=== PATIENT | male | born 1965 | race Hispanic/Latino ===

== ENCOUNTER 2020-08-31 00:35 | Inpatient (IN) | payer BC, OTHER ==
[2020-08-31] VITALS (26 sets, daily range): BP systolic 115–159; BP diastolic 58–109
[~2020-08-31] VITALS: Ht 170.2 cm; Wt 92.6 kg
[2020-08-31 01:12] LABS: LYMPHOCYTES # 0.72 10^3/uL1 (1.0-4.8); LYMPHOCYTES % 2.8 % (24.0-44.0); MEAN CORP HGB 32.4 pg (26-34); MONOCYTES # 1.7 10^3/uL (0.3-0.8); MONOCYTES % 6.8 % (5.0-12.0); NEUTROPHIL # 22.4 10^3/uL (1.8-7.7); NEUTROPHILS % 88.4 % (41.0-85.0); PLATELET COUNT 232 10^3/uL (150-400); RED CELL DISTRIBUTION WIDTH 12.4 % (11.5-14.5)
--- NOTE | 2020-08-31 01:15 | ER.PDOC ---
General Chief Complaint: Requesting Medical Care Stated Complaint: COVID-19 TRAVEL OUT OF US: No Time seen by MD: 00:50 Source: patient, old records Exam Limitations: no limitations History of Present Illness Initial Comments Pt is a transfer form [facility] for Covid Pneumonia for care not available in [facility]. Pt presented to [facility] for SOB, fevers & chills for about a week On presentation, sat was 82 %. Nebulizer treatment and Mg then on 100% NRB, sa ts katie to 98. No bed available for admission down there. Severity: moderate Modifying Factors: improves with other (See records form [facility]) Associated Symptoms: fever/chills, shortness of breath Past Medical History Medical History: high cholesterol, hypertension Surgical History: other (ORIF left ankle, pterigium left eye) Family History Significant Family History: no pertinent family hx Social History Smoking: non-smoker Alcohol Use: none Drug Use: none Review of Systems Respiratory: see HPI, cough, shortness of breath, wheezing All Other Systems: Reviewed and Negative Physical Exam General Appearance: WD/WN, Moderate Distress EENT: eyes nml inspection, nml ENT inspection, pharynx nml Neck: Non-Tender, Full Range of Motion Respiratory: chest non-tender, decreased breath sounds, grunting, rales CVS: reg rate & rhythm, no murmur, no gallop, pulses nml, nml capillary refill Gastrointestinal: Normal Bowel Sounds, No Organomegaly Extremities: Normal Range of Motion, Non-Tender, Normal Inspection Neurologic/Psychiatric: translator and interpreter II-XII NML as Tested, No Motor/Sensory Deficits, Alert, Normal Mood/Affect, Oriented x 3 Skin: Normal Color, Warm/Dry Lymphatic: No Adenopathy Results/Orders Results/Orders Orders - CHAVEZ CABRERA MD Cbc With Auto Diff (08/31/20 00:57) Comprehensive Metabolic Panel (08/31/20 00:57) C-Reactive Protein (08/31/20 00:57) D-Dimer (08/31/20 00:57) Vital Signs Date Time Temp Pulse Resp B/P (MAP) Pulse Ox O2 Delivery O2 Flow Rate FiO2 08/31/20 01:31 99.1 89 22 133/78 (96) 85 Non-Rebreather 15.00 08/31/20 00:59 99.1 96 22 08/31/20 00:59 99.1 96 22 154/64 (94) 85 Non-Rebreather 15.00 08/31/20 00:59 99.3 96 22 85 Laboratory Tests Test 08/31/20 01:00 White Blood Count 25.4 10^3/uL (4.5-11.0) *H Red Blood Count 5.49 10^6/uL (4.50-5.90) Hemoglobin 17.8 g/dL (13.9-16.3) H Hematocrit 48.6 % (37.0-53.0) Mean Corpuscular Volume 88.5 fL (78-100) Mean Corpuscular Hemoglobin 32.4 pg (26-34) Mean Corpuscular Hemoglobin Concent 36.6 g/dL (33-36.5) H Red Cell Distribution Width 12.4 % (11.5-14.5) Platelet Count 232 10^3/uL (150-400) Mean Platelet Volume 9.2 fL (7.8-11.0) Neutrophils (%) (Auto) 88.4 % (41.0-85.0) H Lymphocytes (%) (Auto) 2.8 % (24.0-44.0) *L Monocytes (%) (Auto) 6.8 % (5.0-12.0) Neutrophils # (Auto) 22.4 10^3/uL (1.8-7.7) H Lymphocytes # (Auto) 0.72 10^3/uL1 (1.0-4.8) L Monocytes # (Auto) 1.7 10^3/uL (0.3-0.8) H Absolute Immature Granulocyte (auto 0.50 10^3 u/L (0-2) Absolute Eosinophils (auto) 0.0 10^3/uL (0.0-0.2) Immature Granulocytes % 2.00 % (0.00-0.50) H Eosinophils % 0.0 % (0.0-5.0) Basophils % 0.0 % (0.0-0.2) Basophils # 0.0 10^3/uL (0.0-0.1) D-Dimer 0.33 mg/L (0.19-0.49) Sodium Level 139 mmol/L (132-145) Potassium Level 4.0 mmol/L (3.6-5.2) Chloride Level 102.0 mmol/L (96-109) Carbon Dioxide Level 25.6 mmol/L (20.0-32) Anion Gap 15.4 Blood Urea Nitrogen 20 mg/dL (7-18) H Creatinine 1.07 mg/dL (0.59-1.40) Estimated GFR () 86.8 (>/=60) Est GFR (CKD-EPI)(Non-Afr Taiwanese) 71.8 (>/=60) BUN/Creatinine Ratio 18.0 Glucose Level 157 mg/dL (70-110) H Calcium Level 8.4 mg/dL (8.4-10.5) Total Bilirubin 0.7 mg/dL (0.2-1.0) Aspartate Amino Transferase (AST) 35 U/L (0-35) Alanine Aminotransferase (ALT) 77 U/L (12-78) Alkaline Phosphatase 98 U/L (50-136) C-Reactive Protein 12.72 mg/dL (0.00-5.00) H Total Protein 7.0 g/dL (6.4-8.2) Albumin 2.7 g/dL (3.4-5.0) L Globulin 4.3 Albumin/Globulin Ratio 0.627 Progress Progress WBC 25.4 with left shift, Chem: Glu 157, BUN 20, CRP 12.72 all elevated D- Dimer 0.33 ER DEPART Departure Time of Disposition: 02:10 Disposition: 09 ADMITTED INPATIENT Impression: Primary Impression: Pneumonia due to COVID-19 virus Additional Impression: Hypoxia Condition: Stable Duration or Time Spent with Pa: 25m Problem Qualifiers CHAVEZ CABRERA MD Aug 31, 2020 01:15
[2020-08-31 01:32] LABS: CALCIUM 8.4 mg/dL (8.4-10.5); CARBON DIOXIDE 25.6 mmol/L (20.0-32)
[2020-08-31] MEDS: ATIVAN IV PRN ×3 (04:35→23:00)
--- NOTE | 2020-08-31 04:47 | PCM.HP ---
HISTORY & PHYSICAL HISTORY & PHYSICAL DATE OF ADMISSION: CHIEF COMPLAINT:sob covid opneumonia HISTORY OF PRESENT ILLNESS:This is a 54 yr ol male. Recently diagnosed with covid.O2 sat 77 on presentation to [facility].NRB started and sats 85. T 103.7. 141/84. RR40.lactate 2.3. trop neg. pro bnp 301.wbc 27. H 18CR .9.7.5/34/42.DD 700. CTA showed typical covid. bilateral. Study inadequate for PE. EKG- NSR. Received roceph and zithromax. ALLERGIES: CURRENT MEDICATIONS:temazepam 30. lisinopril 20. PAST MEDICAL HISTORY:htn SOCIAL HISTORY: FAMILY HISTORY: REVIEW OF SYSTEMS:Some cough. extreme sob. fever PHYSICAL EXAMINATION: GENERAL: slightly diaphoretic and anxious. VITAL SIGNS:BP nl. P 103 HEENT:nl appearance NECK:no mass LUNGS: tachypneic, on hi flow 100% crackles slight HEART:RRR no murmur ABDOMEN:rotund. soft NT no mass EXTREMITIES:no edema NEUROLOGIC: LABORATORY DATA: IMPRESSION:covid pneumonia CARE PLAN:remdesevir, dexameth, Might go to bipap. attempt proning. For anxiety- ativan 1 mg IV q3 hrs prn. He may need more since he takes temazepam. HORACE JUSTIN MD Aug 31, 2020 04:47
[2020-08-31] MEDS: ROCEPHIN 1,000 MG in NS 100ML 100 ML IV SCH (05:00)
[2020-08-31] MEDS ORDERED: ATIVAN IV STA ×2 (05:16→07:56)
[2020-08-31] MEDS ORDERED: NS 100ML 100 ML IV ONE ×2 (05:18→09:34)
[2020-08-31] MEDS ORDERED: ROCEPHIN ONE (05:19)
[2020-08-31] MEDS ORDERED: NS 500ML 500 ML IV ONE (05:37)
[2020-08-31 06:02] LABS: MEAN CORP HGB 31.7 pg (26-34); RED CELL DISTRIBUTION WIDTH 12.7 % (11.5-14.5)
[2020-08-31] MEDS ORDERED: MORPHINE SULFATE IV ONE (06:15)
[2020-08-31 07:02] LABS: LYMPHOCYTE 3 % (25-36); MONOCYTE 8 % (3-9); SEGMENTED NEUTROPHILS 89 % (31-76)
[2020-08-31 07:03] LABS: DIFFERENTIAL COMMENT NORMAL
[2020-08-31] MEDS ORDERED: LASIX IV STA (07:55)
[2020-08-31] MEDS ORDERED: MORPHINE SULFATE IV STA (07:56)
[2020-08-31] MEDS ORDERED: VENTOLIN IH PRN (08:00)
[2020-08-31] MEDS ORDERED: NS 250ML 250 ML IV ONE (08:03)
[2020-08-31] MEDS: ZITHROMAX 500 MG in NS 250ML 250 ML IV SCH (08:10)
--- NOTE | 2020-08-31 08:47 | DIREP ---
PROCEDURE:CHEST 1 VIEW COMPARISON:None. INDICATIONS:respiratory distress FINDINGS: LUNGS/PLEURA:Infiltrate in the upper lobe on the right, against the minor fissure. Subtle patchy opacity in the left base VASCULATURE:Normal. Unremarkable pulmonary vasculature. CARDIAC:Borderline cardiomegaly MEDIASTINUM:Normal. No visible mass or adenopathy. BONES:Normal. No fracture or visible bony lesion. OTHER:Negative. CONCLUSION:Bilateral infiltrates, upper right and lower left. Dictated by: John Shepard MD on 08/31/2020 at 08:44 AM
[2020-08-31] MEDS: DUO 0.5-3(2.5) MG/3 ML IH SCH ×2 (08:53→16:30)
[2020-08-31] MEDS ORDERED: DEXAMETHASONE 10 MG/ML VIAL IV SCH (09:00)
[2020-08-31] MEDS ORDERED: REMDESIVIR (EUA) 200 MG in NS 100ML 100 ML IV SCH (09:30)
[2020-08-31] MEDS: LOVENOX SQ SCH (09:33)
[2020-08-31 11:53] LABS: ABG PCO2 31.9 mmHg (35.0-45.0); BE(B) -2.2 mmol/L (-2.0-2.0); HCO3act 20.7 mmol/L (22.0-26.0); pO2 64.2 mmHg (80.0-100.0)
[2020-08-31] MEDS ORDERED: TEMA30CA6 PO (13:34)
[2020-08-31] MEDS ORDERED: BISO1TAB4 PO (13:34)
[2020-08-31] MEDS ORDERED: ATOR10TA PO (13:39)
--- NOTE | 2020-08-31 15:45 | NUR ---
Pt received from Med/pipe organ tuner and repairer. Transferred from med/surg via wheelchair. RT was w/ RN during transport d/t pt being on bipap. Pt denies pain, afebrile, VSS.
--- NOTE | 2020-08-31 16:45 | NUR ---
Pt's , Amanda, was called & updated about POC & pt's current status. RN explained that she is the one general merchandise salesperson & to allow RNs to call between 1400 & 1600 to meatcutter her updates. The no visitor policy was explained as well. Amanda verbalized understanding.
--- NOTE | 2020-08-31 19:59 | TELE.CONS ---
Consultation Reason for Consult: Reason for Consultation: COVID ARF History of Present Illness History of Patient Comments 54 y.o. male tested + COVID 08-22-2020 Became progressively SOB Admitted early this AM Required more 02 support Transferred to ICU Review of Systems ENT: Other Respiratory: Shortness of breath Allergies: Coded Allergies: Sulfa (Sulfonamide Antibiotics) (Verified Allergy, Mild, 08/31/20) Scheduled Atorvastatin 10MG (Lipitor 10MG), 1 TAB PO HS, (Reported) Bisoprolol Fumarate/Hctz (Bisoprolol-Hctz 5-6.25 Mg Tab), 1 TAB PO DAILY, (Reported) Temazepam (Restoril), 1 CAP PO HS, (Reported) VITALS REVIEW VITALS Vital Sign - Last 24 Hours 08/31/20 08/31/20 08/31/20 08/31/20 00:59 00:59 00:59 01:31 Temp 99.3 99.1 99.1 99.1 Pulse 96 96 96 89 Resp 22 22 22 22 B/P (MAP) 154/64 (94) 133/78 (96) Pulse Ox 85 85 85 O2 Delivery Non-Rebreather Non-Rebreather O2 Flow Rate 15.00 15.00 08/31/20 08/31/20 08/31/20 08/31/20 02:09 03:00 03:05 03:25 Temp 99.2 99.2 99.6 Pulse 85 86 102 Resp 23 22 22 B/P (MAP) 130/82 (98) 135/75 (95) 159/87 (111) Pulse Ox 90 91 90 O2 Delivery Non-Rebreather Bi-pap Non-Rebreather Non-Rebreather O2 Flow Rate 15.00 100.00 15.00 15.00 08/31/20 08/31/20 08/31/20 08/31/20 04:27 04:48 04:56 06:14 Temp 99.3 Pulse 92 114 85 Resp 30 42 22 B/P (MAP) 136/82 (100) Pulse Ox 86 88 90 O2 Delivery Comfort Ryne S/T Non-Rebreather S/T O2 Flow Rate 60.00 15.00 FiO2 100 100 100 08/31/20 08/31/20 08/31/20 08/31/20 08:08 08:30 08:54 08:54 Pulse 111 114 Resp 39 44 B/P (MAP) 141/91 Pulse Ox 91 91 O2 Delivery Bi-pap 08/31/20 08/31/20 08/31/20 08/31/20 08:57 08:57 09:03 11:27 Temp 100.0 Pulse 119 110 103 104 Resp 44 45 60 36 B/P (MAP) 141/91 (108) Pulse Ox 90 87 89 94 O2 Delivery CPAP CPAP FiO2 100 100 08/31/20 08/31/20 08/31/20 08/31/20 11:49 14:30 15:23 15:45 Temp 98.5 Pulse 111 92 91 Resp 58 49 49 B/P (MAP) 119/85 (96) Pulse Ox 89 90 90 O2 Delivery CPAP FiO2 100 08/31/20 08/31/20 08/31/20 08/31/20 15:52 16:00 16:00 16:30 Temp 97.3 98.0 Pulse 93 85 92 Resp 44 55 40 B/P (MAP) 145/95 (112) 128/78 (95) Pulse Ox 89 91 91 O2 Delivery Bi-pap 08/31/20 08/31/20 08/31/20 08/31/20 16:34 16:45 16:49 17:00 Pulse 86 86 98 89 Resp 62 34 42 B/P (MAP) 127/82 (97) Pulse Ox 90 89 88 93 08/31/20 08/31/20 08/31/20 08/31/20 17:01 17:02 17:02 17:04 Pulse 93 99 101 87 Resp 39 39 38 37 B/P (MAP) 128/78 (95) Pulse Ox 92 91 91 90 O2 Delivery CPAP FiO2 100 08/31/20 08/31/20 08/31/20 08/31/20 17:15 17:19 17:30 17:34 Pulse 83 89 91 88 Resp 78 34 32 B/P (MAP) 136/109 (118) 134/78 (96) Pulse Ox 90 87 89 88 08/31/20 08/31/20 08/31/20 08/31/20 17:45 17:49 18:00 18:02 Pulse 89 87 89 92 Resp 69 54 47 B/P (MAP) 134/91 (105) Pulse Ox 86 89 88 89 O2 Delivery CPAP FiO2 100 08/31/20 08/31/20 08/31/20 18:04 18:15 18:19 Pulse 84 86 77 Resp 43 26 39 B/P (MAP) 138/68 (91) 125/58 (80) Pulse Ox 88 91 90 VTE VTE Risk Total Score: 2 VTE Risk Score VTE Risk: Score 0-1 = Low Risk (Aggressive mobilization; early ambulation; no VTE prophylaxis required) Score 2: Moderate Risk (Intermittent/Pneumatic Compression Device OR Lovenox/Heparin/Coumadin) Score 3-4: High Risk (Intermittent/Pneumatic Compression Device AND Lovenox/Heparin/Coumadin) Score > or =5: Highest Risk (Intermittent/Pneumatic Compression Device AND Lovenox/Heparin/Coumadin) VTE VTE Present on Admission: No Currently receiving anticoagul: No VTE Risk Total Score: 2 Assessment/Plan Assessment/Plan Assessment/Plan 54 y.o. male with COVID ARF on BiPAP CV: HD Stable HR=92 XS=598/91 Pulm: RR=47 92% on BiPAP 12 100% with ABG=7.43/31/64/20/92% Continue Duonebs and Ventolin Consider Dexamethasone course Patient instructed to self prone as tolerated GI: PO diet T. Pot=7.0 Albumin=2.7 NL LFTs Zyv=550 Start Pepcid for stress ulcer prophylaxis : Monitor UO BUN/Cr=20/1.0 Lytes: NL ID: Afebrile Temp=98 WBC=30.6 Culture Continue Rocephin and Zithromax CRP=12.72 Procalcitonin=0.45---trend markers Heme: H/H=17.9/50.3 Nowjswxuj=025 Lovenox for DVT prophylaxis--consider anticoagulation dosing due to risk thrombosis Consider antiplatelet therapy D Dimer=0.33 Neuro: GCS 15 Non-labored speech Appears comfortable I discussed patient with DOOR GLASS INSTALLER who assisted with video eval I spent 60 mins telemedicine critical care time I saw this patient and completed full visual exam using audio-visual HIPAA compliant technology Patient History: Unknown 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 Plan Stress ulcer prophylaxis Consider anticoagulation Consider steroid course Antiplatelet therapy Cultures Empiric antibiotics 02 support Follow sats Monitor LFTs while on Remdesivir Self-proning RONALD MACARIO MD Aug 31, 2020 19:59
[2020-08-31] MEDS ORDERED: DEXAMETHASONE 10 MG/ML VIAL ONE (20:06)
[2020-08-31] MEDS: DEXAMETHASONE 10 MG/ML VIAL IV SCH (20:46)
[2020-08-31] MEDS: PEPCID PO SCH (20:46)
[2020-08-31] MEDS: ZINC SULFATE PO SCH (21:00)
[2020-08-31] MEDS: VITAMIN C PO SCH (21:00)
[2020-09-01] VITALS (81 sets, daily range): BP systolic 98–133; BP diastolic 43–87
[2020-09-01] MEDS ORDERED: ROBITUSSIN DM PO PRN (01:30)
[2020-09-01] MEDS: ATIVAN IV PRN ×2 (02:30→06:00)
[2020-09-01] MEDS ORDERED: MORPHINE SULFATE ONE (03:32)
[2020-09-01] MEDS ORDERED: MORPHINE SULFATE IV STA (03:33)
[2020-09-01 05:00] LABS: RED CELL DISTRIBUTION WIDTH 12.7 % (11.5-14.5)
[2020-09-01] MEDS: ROCEPHIN 1,000 MG in NS 100ML 100 ML IV SCH (05:00)
[2020-09-01] MEDS: ZITHROMAX 500 MG in NS 250ML 250 ML IV SCH (05:00)
[2020-09-01 05:17] LABS: CALCIUM 8.5 mg/dL (8.4-10.5); CARBON DIOXIDE 24.8 mmol/L (20.0-32)
[2020-09-01] MEDS ORDERED: NS 100ML 100 ML IV ONE (05:28)
[2020-09-01] MEDS ORDERED: ROCEPHIN ONE (05:29)
[2020-09-01] MEDS ORDERED: NS 250ML 250 ML IV ONE ×2 (05:29→05:37)
[2020-09-01] MEDS ORDERED: PRECEDEX IV SCH (06:00)
[2020-09-01] MEDS ORDERED: TESSALON PERLE PO PRN ×2 (06:00)
[2020-09-01] MEDS ORDERED: NORCO 5MG PO PRN (06:00)
[2020-09-01] MEDS ORDERED: NS IV SCH (06:00)
--- NOTE | 2020-09-01 06:05 | NUR ---
CALLED TO PATIENT ROOM DUE TO PATIENT DESAT ON CPAP. ATTEMPTED TO PLACE PATIENT ON CF 60L 100% FIO2. PATIENT SEEMED TO TOLERATE, BUT O2 SAT WOULD NOT EXCEED 93%. PLACED PATIENT ON CPAP AND CHANGED SETTINGS TO AVAPS VT 525 RATE 14 EPAP 10 FIO2 100%. PATIENT SEEMED MORE COMFORTABLE AND TOLERATED CHANGES, O2 INCREASED TO 93%. DISCUSSED CHANGES WITH DR JUSTIN. WILL CONTINUE TO MONITOR.
--- NOTE | 2020-09-01 06:28 | NUR ---
Pt unable to maintain oxygen saturation goal by the provider Dr Renee at 86% or higher throughout the shift. Tachypneic throughout the entire shift w respirations 30+, desatting to 69%, and anxious with persistent coughing. Respratory called several times. Provider notified several times throughout night, giving additional orders via telephone. Provider came to bedside at 0500. At current time pt is comfortable and calm. Safety maintained. Will continue to monitor.
--- NOTE | 2020-09-01 08:11 | NUR ---
[address] Ontiveros patients oxygen saturation 86 percent on cipap. unable to console patients anxiety. does not tolerate side position for more than 1 minute. Ativan not due for another 1.5 hours. Provider request precedex drip to be started as ordered and RT to increase cpap to 12. Will call and update provider if patients status does not improve.
--- NOTE | 2020-09-01 08:25 | PRM.PN ---
Subjective Subjective Date: Sep 01, 2020 Time: 08:25 Subjective Pt s/e this AM at bedside. He continues to have difficulty with NIPPV and was quickly becoming more fatigued. Due to continued dyssynchrony with CPAP, I discussed intubation with him, to which he agreed. Prior to intubation he noted continued severe shob, coughing, and difficulty tolerating the CPAP machine. He denied any CP, LH/dizziness, abdominal pain, n/v/d/c, urinary symptoms, or other changes in symptoms. His most concerning comment was that "he was getting very tired" and "didn't know how long he could keep doing the CPAP." The EARTH MOVER was called and the patient was subsequently electively intubated, after which his sats improved markedly. Review of Systems ENT: Other Respiratory: Shortness of breath Other Review of systems including general, HEENT, neck, cardiopulmonary, GI, , neuro-musculoskeletal, hematologic, oncologic, endocrinology, infectious disease, dermatologic and psychiatric were reviewed with the patient and are negative unless otherwise noted in the HPI. Allergies: Coded Allergies: Sulfa (Sulfonamide Antibiotics) (Verified Allergy, Mild, 08/31/20) Scheduled Atorvastatin 10MG (Lipitor 10MG), 1 TAB PO HS, (Reported) Bisoprolol Fumarate/Hctz (Bisoprolol-Hctz 5-6.25 Mg Tab), 1 TAB PO DAILY, (Reported) Temazepam (Restoril), 1 CAP PO HS, (Reported) Objective Vitals and I/O Vital Sign - Last 24 Hours 08/31/20 08/31/20 08/31/20 08/31/20 08:30 08:54 08:54 08:57 Pulse 111 114 119 Resp 39 44 44 Pulse Ox 91 91 90 O2 Delivery Bi-pap CPAP FiO2 100 08/31/20 08/31/20 08/31/20 08/31/20 08:57 09:03 11:27 11:49 Temp 100.0 98.5 Pulse 110 103 104 111 Resp 45 60 36 58 B/P (MAP) 141/91 (108) 119/85 (96) Pulse Ox 87 89 94 89 O2 Delivery CPAP FiO2 100 08/31/20 08/31/20 08/31/20 08/31/20 14:30 15:23 15:45 15:52 Temp 97.3 Pulse 92 91 93 Resp 49 49 44 B/P (MAP) 145/95 (112) Pulse Ox 90 90 89 O2 Delivery CPAP FiO2 100 08/31/20 08/31/20 08/31/20 08/31/20 16:00 16:00 16:30 16:34 Temp 98.0 Pulse 85 92 86 Resp 55 40 62 B/P (MAP) 128/78 (95) 127/82 (97) Pulse Ox 91 91 90 O2 Delivery Bi-pap 08/31/20 08/31/20 08/31/20 08/31/20 16:45 16:49 17:00 17:01 Pulse 86 98 89 93 Resp 34 42 39 Pulse Ox 89 88 93 92 O2 Delivery CPAP FiO2 100 08/31/20 08/31/20 08/31/20 08/31/20 17:02 17:02 17:04 17:15 Pulse 99 101 87 83 Resp 39 38 37 78 B/P (MAP) 128/78 (95) Pulse Ox 91 91 90 90 08/31/20 08/31/20 08/31/20 08/31/20 17:19 17:30 17:34 17:45 Pulse 89 91 88 89 Resp 34 32 69 B/P (MAP) 136/109 (118) 134/78 (96) Pulse Ox 87 89 88 86 08/31/20 08/31/20 08/31/20 08/31/20 17:49 18:00 18:02 18:04 Pulse 87 89 92 84 Resp 54 47 43 B/P (MAP) 134/91 (105) 138/68 (91) Pulse Ox 89 88 89 88 O2 Delivery CPAP FiO2 100 08/31/20 08/31/20 08/31/20 08/31/20 18:15 18:19 19:34 19:45 Pulse 86 77 82 74 Resp 26 39 49 41 B/P (MAP) 125/58 (80) 117/74 (88) Pulse Ox 91 90 93 94 08/31/20 08/31/20 08/31/20 08/31/20 19:49 20:00 20:00 20:04 Pulse 69 97 87 Resp 42 57 37 B/P (MAP) 118/69 (85) 121/77 (92) Pulse Ox 92 86 88 O2 Delivery C-Pap 11/20/20 11/20/20 11/20/20 11/20/20 20:15 20:19 20:30 20:34 Pulse 71 81 81 78 Resp 28 41 43 B/P (MAP) 124/69 (87) 124/69 (87) Pulse Ox 93 91 91 90 08/31/20 08/31/20 08/31/20 08/31/20 20:45 20:49 20:50 21:00 Temp 97.0 Pulse 76 84 82 Resp 48 47 B/P (MAP) 115/79 (91) Pulse Ox 93 91 91 08/31/20 08/31/20 08/31/20 08/31/20 21:04 21:15 21:19 21:30 Pulse 88 86 86 99 Resp 57 26 40 B/P (MAP) 126/84 (98) 138/72 (94) Pulse Ox 87 89 87 88 08/31/20 08/31/20 08/31/20 08/31/20 21:34 21:45 21:45 22:44 Pulse 92 88 98 88 Resp 42 33 83 33 B/P (MAP) 142/85 (104) Pulse Ox 89 91 89 90 O2 Delivery CPAP FiO2 100 08/31/20 08/31/20 09/01/20 09/01/20 22:46 22:46 00:00 00:00 Temp 98.4 Pulse 88 88 Resp 33 33 Pulse Ox 90 91 O2 Delivery C-Pap 09/01/20 09/01/20 09/01/20 09/01/20 00:30 04:00 04:00 04:00 Temp 98.1 Pulse 83 73 Resp 41 43 Pulse Ox 92 92 O2 Delivery CPAP C-Pap FiO2 100 09/01/20 09/01/20 09/01/20 09/01/20 04:09 04:15 04:23 04:30 Pulse 94 86 76 82 Resp 36 27 50 42 B/P (MAP) 133/71 (91) 104/49 (67) Pulse Ox 83 89 91 91 09/01/20 09/01/20 09/01/20 09/01/20 04:39 04:45 04:54 05:00 Pulse 96 94 84 Resp 48 40 B/P (MAP) 131/87 (102) 105/43 (63) Pulse Ox 82 86 85 93 O2 Delivery CPAP FiO2 100 09/01/20 09/01/20 09/01/20 09/01/20 05:00 05:08 05:15 05:23 Pulse 103 110 99 102 Resp 47 73 46 B/P (MAP) 120/75 (90) 110/66 (81) Pulse Ox 85 83 90 79 09/01/20 09/01/20 09/01/20 09/01/20 05:30 05:38 05:45 05:53 Pulse 88 94 88 98 Resp 28 33 47 B/P (MAP) 118/71 (87) 116/76 (89) Pulse Ox 82 88 91 87 Intake and Output 09/01/20 07:00 Intake Total 380 ml Output Total 2400 ml Balance -2020 ml General: Alert, Oriented X3, Cooperative, moderate distress, severe distress, Other (severe conversational dyspnea) HEENT: Atraumatic, PERRLA, EOMI, Other (CPAP mask limits oropharyngeal eval) Neck: Supple Lungs: Other (Breath sound are surprisingly clear to auscultation. No notable rales, rhonchi, or wheezing was noted on exam) Heart: Normal S1, Normal S2, No murmurs, Other (Sinus Tach this AM that resolved after intubation) Abdomen: Normal bowel sounds, Soft Extremities: No clubbing, No cyanosis, No edema, Normal pulses, No tenderness/swelling Skin: No rashes, No breakdown, No significant lesion, Other (There is signicant subq emphysema overlying his chest and neck. ) Neuro: Normal tone, Sensation intact, Cranial nerves 3-12 NL Psych/Mental Status: Mental status NL, Mood NL All Results(Lab/Rad) Laboratory Tests Test 08/31/20 11:40 09/01/20 04:40 Blood Gas Sample Site LR Blood Gas pH 7.430 Blood Gas PCO2 31.9 mmHg Blood Gas PO2 64.2 mmHg Blood Gas HCO3 20.7 mmol/L Blood Gas Base Excess -2.2 mmol/L Vince Test POSITIVE Arterial Blood Oxygen Saturation 92.7 % Deoxyhemoglobin 7.2 % Carboxyhemoglobin 0.3 % Methemoglobin 0.6 % Total Hemoglobin 19.8 % Total Oxygen Concentration 25.5 % Oxygen Delivery Method (LAB) CPAP 12 FiO2 100 % Total Carbon Dioxide 21.7 mmol/L White Blood Count 20.4 10^3/uL Red Blood Count 5.40 10^6/uL Hemoglobin 17.3 g/dL Hematocrit 48.5 % Mean Corpuscular Volume 89.8 fL Mean Corpuscular Hemoglobin 32.0 pg Mean Corpuscular Hemoglobin Concent 35.7 g/dL Red Cell Distribution Width 12.7 % Platelet Count 216 10^3/uL Mean Platelet Volume 9.5 fL Sodium Level 141 mmol/L Potassium Level 4.3 mmol/L Chloride Level 105.0 mmol/L Carbon Dioxide Level 24.8 mmol/L Anion Gap 15.5 Blood Urea Nitrogen 30 mg/dL Creatinine 1.15 mg/dL Estimated GFR () 79.9 Est GFR (CKD-EPI)(Non-Afr Portuguese) 66.0 BUN/Creatinine Ratio 26.0 Glucose Level 119 mg/dL Calcium Level 8.5 mg/dL Phosphorus Level 4.1 mg/dL Magnesium Level 3.0 mg/dL Total Bilirubin 1.1 mg/dL Aspartate Amino Transf (AST/SGOT) 56 U/L Alanine Aminotransferase (ALT/SGPT) 56 U/L Alkaline Phosphatase 84 U/L Total Protein 7.0 g/dL Albumin 2.4 g/dL Globulin 4.6 Albumin/Globulin Ratio 0.521 Current Medications Medications (Trade) Dose Ordered Sig/Estuardo Route PRN Reason Start Time Stop Time Status Last Admin Dose Admin Enoxaparin Sodium (Lovenox) 40 mg DAILY SQ 08/31/20 09:00 09/30/20 08:59 08/31/20 09:33 Remdesivir 200 mg/ Sodium Chloride 140 ml @ 120.69 mls/ hr OT IV 08/31/20 09:30 08/31/20 10:40 DC 08/31/20 09:38 Lorazepam (Ativan) 1 mg Q3HR PRN IV ANXIETY 08/31/20 05:00 09/30/20 04:59 09/01/20 06:00 Azithromycin 500 mg/Sodium Chloride 250 ml @ 175 mls/hr Q24HRS IV 08/31/20 05:00 09/04/20 08:00 09/01/20 05:00 Ceftriaxone Sodium 1000 mg/ Sodium Chloride 100 ml @ 100 mls/hr Q24HRS IV 08/31/20 05:00 09/30/20 04:59 09/01/20 05:00 Lorazepam (Ativan) 1 mg STAT STAT IV 08/31/20 05:16 08/31/20 08:31 DC 08/31/20 05:34 Sodium Chloride 100 ml @ ud STK-MED ONCE IV 08/31/20 05:18 08/31/20 05:21 DC Ceftriaxone Sodium (Rocephin) 1,000 mg STK-MED ONCE .ROUTE 08/31/20 05:19 08/31/20 05:21 DC Sodium Chloride 500 ml @ STK-MED ONCE IV 08/31/20 05:37 08/31/20 05:40 DC Morphine Sulfate (Morphine Sulfate) 0.5 mg STAT ONCE IV 08/31/20 06:15 08/31/20 08:44 DC 08/31/20 06:15 Albuterol/ Ipratropium (Duo 0.5-3(2.5) Mg/3 ml) 3 ml RTQ6H IH 08/31/20 08:00 09/30/20 07:59 08/31/20 16:30 Albuterol Sulfate (Ventolin) 2.5 mg RTQ4 PRN IH WHEEZING 08/31/20 08:00 09/30/20 07:59 Furosemide (Lasix) 40 mg STAT STAT IV 08/31/20 07:55 08/31/20 08:44 DC 08/31/20 08:08 Morphine Sulfate (Morphine Sulfate) 0.5 mg OT STAT IV 08/31/20 07:56 08/31/20 08:44 DC 08/31/20 08:25 Lorazepam (Ativan) 0.5 mg STAT STAT IV 08/31/20 07:56 08/31/20 08:43 DC 08/31/20 08:23 Sodium Chloride 250 ml @ STK-MED ONCE IV 08/31/20 08:03 08/31/20 08:05 DC Sodium Chloride 100 ml @ STK-MED ONCE IV 08/31/20 09:34 08/31/20 09:36 DC Remdesivir 100 mg/ Sodium Chloride 120 ml @ 111.111 mls/hr Q24HRS IV 09/01/20 09:00 10/01/20 08:59 Aspirin (Aspirin) 81 mg DAILY PO 09/01/20 09:00 10/01/20 08:59 Famotidine (Pepcid) 20 mg BID PO 08/31/20 21:00 09/30/20 20:59 08/31/20 20:46 Ascorbic Acid (Vitamin C) 500 mg BID PO 08/31/20 21:00 09/30/20 20:59 08/31/20 21:00 Zinc Sulfate (Zinc Sulfate) 220 mg DAILY PO 08/31/20 21:00 09/30/20 20:59 08/31/20 21:00 Guaifenesin (Robitussin Dm) 5 ml Q4HR PRN PO COUGH 09/01/20 01:30 10/01/20 01:29 Morphine Sulfate (Morphine Sulfate) 2 mg STK-MED ONCE .ROUTE 09/01/20 03:32 09/01/20 03:34 DC Morphine Sulfate (Morphine Sulfate) 0.5 mg STAT STAT IV 09/01/20 03:33 09/01/20 03:35 DC 09/01/20 03:33 Sodium Chloride 100 ml @ ud STK-MED ONCE IV 09/01/20 05:28 09/01/20 05:30 DC Sodium Chloride 250 ml @ ud STK-MED ONCE IV 09/01/20 05:29 09/01/20 05:30 DC Ceftriaxone Sodium (Rocephin) 1,000 mg STK-MED ONCE .ROUTE 09/01/20 05:29 09/01/20 05:31 DC Benzonatate (Tessalon Perle) 100 mg Q2 PRN PO COUGH 09/01/20 06:00 09/01/20 05:50 DC Dexmedetomidine HCl 200 mcg/ Sodium Chloride 50 ml @ 0 mls/hr IV 09/01/20 06:00 10/01/20 05:59 Sodium Chloride 250 ml @ ud STK-MED ONCE IV 09/01/20 05:37 09/01/20 05:39 DC Benzonatate (Tessalon Perle) 200 mg TID PRN PO COUGH 09/01/20 06:00 10/01/20 05:59 09/01/20 06:00 Acetaminophen/ Hydrocodone Bitart ([place] 5mg) 1 ea TID PRN PO PAIN 4 - 6 09/01/20 06:00 10/01/20 05:59 Assessment/Plan Assessment/Plan Assessment/Plan Pt is a 54 y/o M with PMHx of HTN, HLD, obesity, and anxiety. He was admitted the morning of 08/31 as a transfer from OSH for acute hypoxemic respiratory f ailure and COVID-19. He was started on full spectrum treatment for COVID-19 with IV Decadron, Azithromycin, Remdesivir, CCP, Zinc, and Vitamin C. Since arrival to this facility, he has been in mild to moderate respiratory distress and has required continuous CPAP to maintain Oxygenation. He was able to remain relatively stable throughout 08/31, but started becoming more fatigued that evening and was moved to the ICU for closer monitoring. In the ICU, he was continued on CPAP in an effort to avoid intubation. However, he has continued to have difficulty with NIPPV and is frequently dyssynchronous, which causes further desaturations. He was also noted to have Sub q emphysema in his chest and neck, which was concerning for barotrauma due to continued dyssynchrony. The morning of 09/01, he was noted to be in worsened respiratory distress and there was concern for impending respiratory collapse due to fatigue. The patient and I discussed intubation and he agreed to be electively intubated before he decompensated completely. The on-call EARTH MOVER was called and the patient was subsequently intubated without complication. He was started on Propofol and fentanyl drips and paralyzed with IV vecuronium pushes. He has tolerated mechanical ventilation rather well and his O2 sats and PaO2 have improved markedly. Prior to intubation his ABG showed normal pH and a PaO2 in the 50's. His PaO2 improved to 70's within the hour, and was 150's on his most recent ABG this evening. Of note, I did discuss the possibility of prolonged intubation, need for tracheostomy, and whether this is something that he would want done. He agreed that tracheostomy and long-term vent weaning is something that he would be ok with if it came down to it. # COVID-19 Pneumonia # Acute Hypoxemic Respiratory Failure # Need for Mechanical Ventilation # Pneumomediastinum without pneumothorax # Leukocytosis # HTN # HLD # Anxiety PLAN: - continue mechanical ventilation. Current settings Tv 450, RR 22, PEEP 16, FiO2 100% - consult to TeleMed News Agent for assistance with mechanical ventilation - Keep Pplat < 30 to limit risk of pneumothorax and barotrauma. - If patient decompensates and becomes markedly hypoxemia and/or hypotension, think Tension Pneumo and perform emergent needle decompression - continue IV decadron, Azithromycin, Remdesivir, CCP, Zinc, and Vitamin C - Contiue Rocephin for now. Follow procal. Consider discontinuing when Procal < 0.25 - continue Propofol/Fentanyl for sedation/analgesia; precedex is available for backup sedation if needed - continue IV Vecuronium 5mg q1h + IV Vec 2mg q30min PRN. Vec drips are not available here - continue ASA 81 - trend COVID markers q48h - consult to dietary for TF rec's Sedation: propofol Analgesia: Fent VTE ppx: Lovenox GI ppx: Pepcid Diet: TF per dietary recs CODE: escalator attendant Spent: > 120 minutes between evaluation, coordination of care, patient/family education, and documentation JAMAICA DE LA PAZ MD Sep 01, 2020 08:25
[2020-09-01 08:37] LABS: ABG PCO2 39.3 mmHg (35.0-45.0); ABG PH 7.391 (7.350-7.450); BE(B) -1.3 mmol/L (-2.0-2.0); HCO3act 23.3 mmol/L (22.0-26.0); pO2 58.3 mmHg (80.0-100.0)
[2020-09-01] MEDS ORDERED: DEXAMETHASONE 10 MG/ML VIAL IV SCH (09:00)
[2020-09-01] MEDS: DEXAMETHASONE 10 MG/ML VIAL IV SCH ×2 (09:00→21:00)
[2020-09-01] MEDS: DUO 0.5-3(2.5) MG/3 ML IH SCH ×3 (09:36→21:00)
[2020-09-01] MEDS ORDERED: NS 1000ML 1,000 ML ONE ×2 (10:16→10:18)
[2020-09-01] MEDS ORDERED: DIPRIVAN 100 ML IV ONE (10:28)
[2020-09-01] MEDS ORDERED: NORCURON ONE (10:29)
[2020-09-01] MEDS ORDERED: DIPRIVAN IV STA (10:29)
--- NOTE | 2020-09-01 10:30 | NUR ---
1041 Two Respiratory therapist, EMPLOYEE SERVICE OFFICER, two nurses at bedside to perform intubation. 1043 patient taken off cipap and bagged by RT. 1044 EMPLOYEE SERVICE OFFICER orders given to administer sedation medication. See medication record. 1045 patient intubated with size 7.5 endotracheal tube measuring 23 at the teeth, cuff inflated, secured with isaacs. RT confirmed placement by auscultation. 1051 16 [place] nasogastric tube inserted through right nare by EMPLOYEE SERVICE OFFICER. secured and placement verified by auscultation. chest ray and KUB ordered. Will continue to monitor patient. Patient BP 96/66, heart rate 101, oxygen saturation 92. will continue to monitor patient.
--- NOTE | 2020-09-01 10:40 | TELE.CONS ---
Consultation Reason for Consult: Reason for Consultation: COVID hypoxic failure Review of Systems ENT: Other Respiratory: Shortness of breath Allergies: Coded Allergies: Sulfa (Sulfonamide Antibiotics) (Verified Allergy, Mild, 08/31/20) Scheduled Atorvastatin 10MG (Lipitor 10MG), 1 TAB PO HS, (Reported) Bisoprolol Fumarate/Hctz (Bisoprolol-Hctz 5-6.25 Mg Tab), 1 TAB PO DAILY, (Reported) Temazepam (Restoril), 1 CAP PO HS, (Reported) VITALS REVIEW VITALS Vital Sign - Last 24 Hours 08/31/20 08/31/20 08/31/20 08/31/20 00:59 00:59 00:59 01:31 Temp 99.3 99.1 99.1 99.1 Pulse 96 96 96 89 Resp 22 22 B/P (MAP) 154/64 (94) 133/78 (96) Pulse Ox 85 85 85 O2 Delivery Non-Rebreather Non-Rebreather O2 Flow Rate 15.00 15.00 08/31/20 08/31/20 08/31/20 08/31/20 02:09 03:00 03:05 03:25 Temp 99.2 99.2 99.6 Pulse 85 86 102 Resp 22 22 B/P (MAP) 130/82 (98) 135/75 (95) 159/87 (111) Pulse Ox 90 91 90 O2 Delivery Non-Rebreather Bi-pap Non-Rebreather Non-Rebreather O2 Flow Rate 15.00 100.00 15.00 15.00 08/31/20 08/31/20 08/31/20 08/31/20 04:27 04:48 04:56 06:14 Temp 99.3 Pulse 92 114 85 Resp 30 42 22 B/P (MAP) 136/82 (100) Pulse Ox 86 88 90 O2 Delivery Comfort Ryne S/T Non-Rebreather S/T O2 Flow Rate 60.00 15.00 FiO2 100 100 100 08/31/20 08/31/20 08/31/20 08/31/20 08:08 08:30 08:54 08:54 Pulse 111 114 Resp 39 44 B/P (MAP) 141/91 Pulse Ox 91 91 O2 Delivery Bi-pap 08/31/20 08/31/20 08/31/20 08/31/20 08:57 08:57 09:03 11:27 Temp 100.0 Pulse 119 110 103 104 Resp 44 45 60 36 B/P (MAP) 141/91 (108) Pulse Ox 90 87 89 94 O2 Delivery CPAP CPAP FiO2 100 100 08/31/20 08/31/20 08/31/20 08/31/20 11:49 14:30 15:23 15:45 Temp 98.5 Pulse 111 92 91 Resp 58 49 49 B/P (MAP) 119/85 (96) Pulse Ox 89 90 90 O2 Delivery CPAP FiO2 100 08/31/20 08/31/20 08/31/20 08/31/20 15:52 16:00 16:00 16:30 Temp 97.3 98.0 Pulse 93 85 92 Resp 44 55 40 B/P (MAP) 145/95 (112) 128/78 (95) Pulse Ox 89 91 91 O2 Delivery Bi-pap 08/31/20 08/31/20 08/31/20 08/31/20 16:34 16:45 16:49 17:00 Pulse 86 86 98 89 Resp 62 34 42 B/P (MAP) 127/82 (97) Pulse Ox 90 89 88 93 08/31/20 08/31/20 08/31/20 08/31/20 17:01 17:02 17:02 17:04 Pulse 93 99 101 87 Resp 39 39 38 37 B/P (MAP) 128/78 (95) Pulse Ox 92 91 91 90 O2 Delivery CPAP FiO2 100 08/31/20 08/31/20 08/31/20 08/31/20 17:15 17:19 17:30 17:34 Pulse 83 89 91 88 Resp 78 34 32 B/P (MAP) 136/109 (118) 134/78 (96) Pulse Ox 90 87 89 88 08/31/20 08/31/20 08/31/20 08/31/20 17:45 17:49 18:00 18:02 Pulse 89 87 89 92 Resp 69 54 47 B/P (MAP) 134/91 (105) Pulse Ox 86 89 88 89 O2 Delivery CPAP FiO2 100 08/31/20 08/31/20 08/31/20 08/31/20 18:04 18:15 18:19 19:34 Pulse 84 86 77 82 Resp 43 26 39 49 B/P (MAP) 138/68 (91) 125/58 (80) 117/74 (88) Pulse Ox 88 91 90 93 08/31/20 08/31/20 08/31/20 08/31/20 19:45 19:49 20:00 20:00 Pulse 74 69 97 Resp 41 42 57 B/P (MAP) 118/69 (85) Pulse Ox 94 92 86 O2 Delivery C-Pap 08/31/20 08/31/20 08/31/20 08/31/20 20:04 20:15 20:19 20:30 Pulse 87 71 81 81 Resp 37 28 41 B/P (MAP) 121/77 (92) 124/69 (87) Pulse Ox 88 93 91 91 08/31/20 08/31/20 08/31/20 08/31/20 20:34 20:45 20:49 20:50 Temp 97.0 Pulse 78 76 84 Resp 43 48 B/P (MAP) 124/69 (87) 115/79 (91) Pulse Ox 90 93 91 08/31/20 08/31/20 08/31/20 08/31/20 21:00 21:04 21:15 21:19 Pulse 82 88 86 86 Resp 47 57 26 40 B/P (MAP) 126/84 (98) 138/72 (94) Pulse Ox 91 87 89 87 08/31/20 08/31/20 08/31/20 08/31/20 21:30 21:34 21:45 21:45 Pulse 99 92 88 98 Resp 42 33 83 B/P (MAP) 142/85 (104) Pulse Ox 88 89 91 89 O2 Delivery CPAP FiO2 100 08/31/20 08/31/20 08/31/20 09/01/20 22:44 22:46 22:46 00:00 Temp 98.4 Pulse 88 88 88 Resp 33 33 33 Pulse Ox 90 90 91 09/01/20 09/01/20 09/01/20 09/01/20 00:00 00:30 04:00 04:00 Temp 98.1 Pulse 83 Resp 41 Pulse Ox 92 O2 Delivery C-Pap CPAP C-Pap FiO2 100 09/01/20 09/01/20 09/01/20 09/01/20 04:00 04:09 04:15 04:23 Pulse 73 94 86 76 Resp 43 36 27 50 B/P (MAP) 133/71 (91) 104/49 (67) Pulse Ox 92 83 89 91 09/01/20 09/01/20 09/01/20 09/01/20 04:30 04:39 04:45 04:54 Pulse 82 96 94 Resp 42 48 B/P (MAP) 131/87 (102) 105/43 (63) Pulse Ox 91 82 86 85 09/01/20 09/01/20 09/01/20 09/01/20 05:00 05:00 05:08 05:15 Pulse 84 103 110 99 Resp 40 47 73 46 B/P (MAP) 120/75 (90) Pulse Ox 93 85 83 90 O2 Delivery CPAP FiO2 100 09/01/20 09/01/20 09/01/20 09/01/20 05:23 05:30 05:38 05:45 Pulse 102 88 94 88 Resp 28 33 47 B/P (MAP) 110/66 (81) 118/71 (87) Pulse Ox 79 82 88 91 09/01/20 09/01/20 09/01/20 09/01/20 05:53 09:36 09:36 09:37 Pulse 98 111 107 111 Resp 45 45 51 B/P (MAP) 116/76 (89) Pulse Ox 87 91 90 91 O2 Delivery CPAP FiO2 100 Intake and Output 09/01/20 06:00 Intake Total 350 ml Output Total 1600 ml Balance -1250 ml VTE VTE Risk Total Score: 2 VTE Risk Score VTE Risk: Score 0-1 = Low Risk (Aggressive mobilization; early ambulation; no VTE prophylaxis required) Score 2: Moderate Risk (Intermittent/Pneumatic Compression Device OR Lovenox/Heparin/Coumadin) Score 3-4: High Risk (Intermittent/Pneumatic Compression Device AND Lovenox/Heparin/Coumadin) Score > or =5: Highest Risk (Intermittent/Pneumatic Compression Device AND Lovenox/Heparin/Coumadin) VTE VTE Present on Admission: No Currently receiving anticoagul: No VTE Risk Total Score: 2 Assessment/Plan Assessment/Plan Assessment/Plan 54yo admitted with COVID hypoxic failure Has been managed with NIPPV Has become fatigued and asynchronous with NIPPV Was started on COVID tx including Remdesivir/decadron; Imaging with bilateral infiltrates; Inflammatory markers elevated Plan to proceed with intubation and mechanical ventilation Will reassess gas exchange, compliance, ABGs, imaging afterward Continue all other supportive care 60 minutes critical care time spent assessing patient, reviewing EMR, and discussing with on-site staff. Patient History: Unknown 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 Plan Stress ulcer prophylaxis Consider anticoagulation Consider steroid course Antiplatelet therapy Cultures Empiric antibiotics 02 support Follow sats Monitor LFTs while on Remdesivir Self-proning JOSE ZAMORA MD Sep 01, 2020 10:40
--- NOTE | 2020-09-01 10:41 | NUR ---
RT X2 AT BEDSIDE TO ASSIST COLOR STRIPPER WITH INTUBATION. RT AND COLOR STRIPPER BAGGED WITH AMBU AT 100% PRIOR TO INTUBATION. PT INTUBATED BY COLOR STRIPPER WITH # 7.5 ETT SECURED AT 23 AT TEETH WITH ANCHOR FASTNER. ETCO2 POSTITVE COLOR CHANGE NOTED POST INTUBATION. BBS X2 CHECKED WITH EQUAL CHEST RISE NOTED. CXR ORDERED BY DR DE LA PAZ. VNL. PT SKIN PINK AND WARM TO TOUCH. PT PLACED ON VENT. SEE VENT CHARTING FOR VENT TIME.
--- NOTE | 2020-09-01 10:45 | NUR ---
Called to ICU for intubation, pt presenting on BiPap with Oxy Sat > 92%. ICU industrial energy engineer, pt assigned RN, RT x2 at bedside for intubation. Medication administered to peripheral IV in L arm, by industrial energy engineer. Medications given sequentially, as follows- 200 mg propofol, 10 ml NS flush, 100mg succinylcholine, 10ml NS flush. GlideScope used for direct visualization of ET placement. bilateral breath sounds ausculated, + ETCO color change indication also observed. No change to dentition, oral mucosa, or lips during ET placement. 1100- 50 mg rocuronium given, 10 ml NS flush given. NG tubed placed , verified by auscultation. Vital signs stable, no distress noted at this time. Report given to RN, RT, and propellant charge zone assembler
[2020-09-01] MEDS: DIPRIVAN IV PRN ×2 (11:02→17:55)
[2020-09-01] MEDS ORDERED: QUELICIN IV ONE (12:00)
[2020-09-01] MEDS ORDERED: ZEMURON IV ONE (12:00)
[2020-09-01] MEDS ORDERED: DIPRIVAN IV ONE (12:00)
[2020-09-01 12:18] LABS: UA COLOR YELLOW (YELLOW)
[2020-09-01 12:24] LABS: APPEARANCE,URINE CLEAR (CLEAR); BILIRUBIN,URINE NEGATIVE (NEGATIVE)
[2020-09-01 12:25] LABS: UROBILINOGEN,URINE NEGATIVE (NEGATIVE)
--- NOTE | 2020-09-01 12:39 | DIREP ---
PROCEDURE:CHEST 1 VIEW COMPARISON:[facility], CR, XRAY CHEST SINGLE VW, 08/31/2020, 08:33 AM. INDICATIONS:covid FINDINGS: LUNGS/PLEURA:Patchy airspace infiltrates noted throughout the lungs most confluent in the left and right lower lung zones. No pneumothorax. VASCULATURE:Normal. Unremarkable pulmonary vasculature. CARDIAC:Normal. No cardiac silhouette abnormality or cardiomegaly. MEDIASTINUM:Normal. No visible mass or adenopathy. BONES:Moderate degenerative disc disease and spondylosis without visible acute abnormalities. Bilateral shoulder girdle degenerative changes. OTHER:Endotracheal tube overlies T4. Nasogastric tube subdiaphragmatic. Subcutaneous emphysema in the left and right supraclavicular soft tissues extending into the neck. CONCLUSION: 1. Patchy infiltrates in the lungs in keeping with cavity pneumonia. 2. Support lines and tubes placed since prior. Dictated by: Emiliano Rodarte M.D. on 09/01/2020 at 12:36 PM
[2020-09-01 12:41] LABS: ABG PCO2 44.9 mmHg (35.0-45.0); ABG PH 7.391 (7.350-7.450); BE(B) 1.2 mmol/L (-2.0-2.0); HCO3act 26.6 mmol/L (22.0-26.0); pO2 71.7 mmHg (80.0-100.0)
--- NOTE | 2020-09-01 13:07 | DIREP ---
PROCEDURE:XRAY ABDOMEN SINGLE VW COMPARISON:[facility], CR, XRAY CHEST SINGLE VW, 09/01/2020, 11:48 AM. INDICATIONS:verifiy placement ng tube FINDINGS: BOWEL GAS PATTERN:Nasogastric tube, this appears to overlie the body of the stomach CALCIFICATIONS:None significant. LUNG BASES:Clear. BONES:Degenerative changes of the spine OTHER:No additional findings. CONCLUSION:Nasogastric tube, overlying the body of the stomach. Dictated by: Alfred Yanez MD on 09/01/2020 at 01:02 PM
[2020-09-01] MEDS ORDERED: WATER ONE (13:55)
[2020-09-01] MEDS: NORCURON IV PRN ×3 (14:00→21:20)
[2020-09-01] MEDS: VITAMIN C PO SCH ×2 (14:00→21:00)
[2020-09-01] MEDS: LOVENOX SQ SCH (14:00)
[2020-09-01] MEDS: ZINC SULFATE PO SCH (14:00)
[2020-09-01] MEDS: REMDESIVIR (EUA) 100 MG in NS 100ML 100 ML IV SCH (14:00)
[2020-09-01] MEDS: PEPCID PO SCH ×2 (14:00→21:00)
[2020-09-01] MEDS: ASPIRIN PO SCH (14:00)
[2020-09-01] MEDS: PRECEDEX IV SCH (16:10)
[2020-09-01] MEDS: NS IV SCH (16:10)
[2020-09-01] MEDS: NORCURON IV SCH ×4 (17:54→23:54)
--- NOTE | 2020-09-01 18:11 | DIREP ---
PROCEDURE:CT CHEST WITHOUT CONTRAST TECHNIQUE:Axial cuts were obtained through the chest, without intravenous contrast material. The images were viewed at lung and soft tissue settings. Sagittal and coronal reconstructions are provided. COMPARISON:[facility], , XRAY CHEST SINGLE VW, 09/01/2020, 11:48 AM. INDICATIONS:COVID-19, now intubated. Has SubQ emphysema FINDINGS: LUNGS:Satisfactory position of the ETT. Diffuse ground-glass opacities with scattered areas sparing and bilateral posterobasilar consolidation with air bronchograms. Trace right pleural effusion. No pneumothorax. CARDIAC:Small anterior pericardial fluid. Normal size heart and normal pulmonary vascularity. THORACIC AORTA:Normal. MEDIASTINUM/RICKY:Pneumomediastinum with air predominantly anterior and right lateral. No pathologic adenopathy. CHEST WALL:Predominantly left anterior subcutaneous emphysema. LIMITED ABDOMEN:Tip of NGT in the distal stomach. BONES:Thoracic spondylosis. THYROID:Normal. OTHER:No additional findings. CONCLUSION: 1. Ground ground-glass infiltrates and posterior basilar consolidation. 2. Trace right pleural effusion. 3. Small anterior pericardial fluid. 4. Pneumomediastinum and subcutaneous emphysema without pneumothorax. 5. Satisfactory position of lines and tubes. Dictated by: Princess Gonzalez MD on 09/01/2020 at 06:03 PM
[2020-09-01 18:22] LABS: ABG PCO2 41.9 mmHg (35.0-45.0); ABG PH 7.395 (7.350-7.450); BE(B) 0.1 mmol/L (-2.0-2.0); HCO3act 25.1 mmol/L (22.0-26.0); pO2 154.5 mmHg (80.0-100.0)
[2020-09-01] MEDS: SUBLIMAZE 1,000 MCG in NS 100ML 80 ML IV SCH (18:51)
[2020-09-02] VITALS (179 sets, daily range): BP systolic 96–145; BP diastolic 51–95
[2020-09-02] MEDS: NORCURON IV SCH ×8 (00:29→22:44)
[2020-09-02] MEDS: NORCURON IV PRN (02:20)
[2020-09-02] MEDS: ROCEPHIN 1,000 MG in NS 100ML 100 ML IV SCH (04:56)
[2020-09-02] MEDS: ZITHROMAX 500 MG in NS 250ML 250 ML IV SCH (04:56)
[2020-09-02] MEDS: DIPRIVAN IV PRN ×4 (05:01→23:19)
[2020-09-02 05:08] LABS: BASOPHIL % 0.1 % (0.0-0.2); LYMPHOCYTES # 0.92 10^3/uL1 (1.0-4.8); LYMPHOCYTES % 6.4 % (24.0-44.0); MONOCYTES # 0.6 10^3/uL (0.3-0.8); NEUTROPHIL # 12.5 10^3/uL (1.8-7.7); NEUTROPHILS % 87.5 % (41.0-85.0); PLATELET COUNT 202 10^3/uL (150-400); RED CELL DISTRIBUTION WIDTH 13.1 % (11.5-14.5)
[2020-09-02 05:41] LABS: CALCIUM 8.4 mg/dL (8.4-10.5); CARBON DIOXIDE 26.4 mmol/L (20.0-32)
--- NOTE | 2020-09-02 06:03 | NUR ---
Critical Lab Values Reported to at this time. D-Dimer 0.58, ProCalcitonin 0.78.
[2020-09-02 07:29] LABS: ABG PCO2 40.2 mmHg (35.0-45.0); ABG PH 7.409 (7.350-7.450); BE(B) 0.3 mmol/L (-2.0-2.0); HCO3act 24.9 mmol/L (22.0-26.0); pO2 103.5 mmHg (80.0-100.0)
[2020-09-02 07:44] LABS: LYMPHOCYTE 2 % (25-36); SEGMENTED NEUTROPHILS 93 % (31-76)
[2020-09-02 07:45] LABS: MONOCYTE 5 % (3-9)
[2020-09-02] MEDS ORDERED: PEPCID IV ONE (07:57)
[2020-09-02] MEDS: PEPCID IV SCH ×2 (08:03→21:33)
[2020-09-02] MEDS: ZINC SULFATE PO SCH (08:03)
[2020-09-02] MEDS: ASPIRIN PO SCH (08:03)
[2020-09-02] MEDS: VITAMIN C PO SCH ×2 (08:03→21:33)
[2020-09-02] MEDS: DEXAMETHASONE 10 MG/ML VIAL IV SCH (08:04)
[2020-09-02] MEDS: LOVENOX SQ SCH (08:04)
[2020-09-02] MEDS: REMDESIVIR (EUA) 100 MG in NS 100ML 100 ML IV SCH (08:04)
--- NOTE | 2020-09-02 08:14 | PRM.PN ---
Subjective Subjective Date: Sep 02, 2020 Time: 08:10 Subjective Pt s/e this am at bedside. He is doing well overall and has been afebrile and HDS. His respiratory status is stable on mechanical ventilation. Patient History: Unknown 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 Review of Systems ENT: Other Other Unable to obtain due to sedation Allergies: Coded Allergies: Sulfa (Sulfonamide Antibiotics) (Verified Allergy, Mild, 08/31/20) Scheduled Atorvastatin 10MG (Lipitor 10MG), 1 TAB PO HS, (Reported) Bisoprolol Fumarate/Hctz (Bisoprolol-Hctz 5-6.25 Mg Tab), 1 TAB PO DAILY, (Reported) Temazepam (Restoril), 1 CAP PO HS, (Reported) Objective Vitals and I/O Vital Sign - Last 24 Hours 09/01/20 09/01/20 09/01/20 09/01/20 09:36 09:36 09:37 10:47 Pulse 111 107 111 76 Resp 45 45 51 22 Pulse Ox 91 90 91 91 O2 Delivery CPAP FiO2 100 100 09/01/20 09/01/20 09/01/20 09/01/20 11:00 11:48 14:50 14:50 Pulse 76 74 74 Resp 22 22 22 Pulse Ox 91 94 94 O2 Delivery Mechanical Ventilator FiO2 100 09/01/20 09/01/20 09/01/20 09/01/20 14:50 14:54 15:00 15:48 Pulse 76 74 102 Resp 22 22 Pulse Ox 91 94 91 O2 Delivery Mechanical Ventilator FiO2 100 09/01/20 09/01/20 09/01/20 09/01/20 15:58 16:00 16:01 16:04 Pulse 73 75 77 75 Resp 25 24 23 23 B/P (MAP) 107/69 (82) 104/66 (79) 102/63 (76) Pulse Ox 95 95 95 95 09/01/20 09/01/20 09/01/20 09/01/20 16:07 16:10 16:13 16:15 Pulse 78 73 72 77 Resp 24 22 21 23 B/P (MAP) 104/58 (73) 102/62 (75) 101/62 (75) Pulse Ox 95 95 95 95 09/01/20 09/01/20 09/01/20 09/01/20 16:16 16:19 16:22 16:25 Pulse 77 77 78 76 Resp 23 22 23 24 B/P (MAP) 107/61 (76) 100/61 (74) 100/60 (73) 105/61 (76) Pulse Ox 95 96 95 95 09/01/20 09/01/20 09/01/20 09/01/20 16:28 16:30 16:31 16:34 Pulse 77 78 77 77 Resp 23 23 24 24 B/P (MAP) 101/65 (77) 102/61 (75) 101/64 (76) Pulse Ox 95 95 95 96 09/01/20 09/01/20 09/01/20 09/01/20 16:37 16:56 19:13 19:15 Pulse 79 73 67 79 Resp 23 22 22 B/P (MAP) 98/62 (74) 106/72 (83) Pulse Ox 95 93 96 85 FiO2 100 09/01/20 09/01/20 09/01/20 09/01/20 19:16 19:19 19:22 19:25 Pulse 81 73 74 71 Resp 24 25 24 23 B/P (MAP) 112/67 (82) 105/60 (75) 105/60 (75) 106/61 (76) Pulse Ox 91 92 91 91 09/01/20 09/01/20 09/01/20 09/01/20 19:28 19:30 19:31 19:34 Pulse 73 73 72 72 Resp 23 24 23 23 B/P (MAP) 106/62 (77) 106/62 (77) 107/64 (78) Pulse Ox 91 92 92 92 09/01/20 09/01/20 09/01/20 09/01/20 19:37 19:40 19:43 19:45 Pulse 72 71 72 71 Resp 23 23 22 23 B/P (MAP) 102/60 (74) 105/61 (76) 108/59 (75) Pulse Ox 92 92 92 92 09/01/20 09/01/20 09/01/20 09/01/20 19:46 19:49 19:52 19:55 Pulse 71 72 72 72 Resp 24 24 23 23 B/P (MAP) 107/61 (76) 106/61 (76) 104/64 (77) 104/63 (77) Pulse Ox 92 92 92 92 09/01/20 09/01/20 09/01/20 09/01/20 19:58 20:00 20:00 20:13 Pulse 73 72 72 Resp 23 26 23 B/P (MAP) 100/62 (75) 105/61 (76) Pulse Ox 91 92 90 O2 Delivery Mechanical Ventilator FiO2 100 09/01/20 09/01/20 09/01/20 09/01/20 20:15 20:16 20:19 20:22 Pulse 73 73 73 72 Resp 23 23 22 22 B/P (MAP) 106/63 (77) 105/63 (77) 104/62 (76) Pulse Ox 90 90 90 91 09/01/20 09/01/20 09/01/20 09/01/20 20:25 20:28 20:30 20:31 Pulse 73 72 71 72 Resp 23 23 23 23 B/P (MAP) 106/61 (76) 102/62 (75) 107/66 (80) Pulse Ox 90 91 91 91 09/01/20 09/01/20 09/01/20 09/01/20 20:34 20:37 20:40 20:43 Pulse 69 73 71 70 Resp 22 22 22 22 B/P (MAP) 103/55 (71) 99/57 (71) 105/61 (76) 103/62 (76) Pulse Ox 90 90 90 90 09/01/20 09/01/20 09/01/20 09/01/20 20:45 20:46 20:49 20:52 Pulse 77 72 73 73 Resp 22 22 22 22 B/P (MAP) 111/64 (80) 104/61 (75) 108/62 (77) Pulse Ox 91 92 92 92 09/01/20 09/01/20 09/01/20 09/01/20 20:55 20:58 21:10 21:11 Pulse 67 74 74 74 Resp 22 23 22 22 B/P (MAP) 111/63 (79) 108/63 (78) Pulse Ox 93 92 91 91 FiO2 100 09/01/20 09/01/20 09/01/20 09/01/20 21:12 21:12 21:46 21:49 Pulse 74 74 80 80 Resp 22 22 22 22 B/P (MAP) 106/62 (77) 110/63 (79) Pulse Ox 91 91 91 92 09/01/20 09/01/20 09/01/20 09/01/20 21:52 21:55 21:58 22:00 Pulse 79 79 79 78 Resp 22 22 22 22 B/P (MAP) 109/63 (78) 110/58 (75) 108/59 (75) Pulse Ox 91 91 92 92 09/01/20 09/01/20 09/01/20 09/01/20 22:01 22:04 22:07 22:10 Pulse 80 80 81 79 Resp 22 23 25 24 B/P (MAP) 108/64 (79) 106/60 (75) 107/61 (76) 107/63 (78) Pulse Ox 92 92 92 92 09/01/20 09/01/20 09/01/20 09/01/20 22:13 22:15 22:16 22:19 Pulse 77 80 79 80 Resp 24 23 24 25 B/P (MAP) 110/65 (80) 106/60 (75) 111/61 (78) Pulse Ox 92 92 92 92 09/01/20 09/01/20 09/01/20 09/01/20 22:22 22:25 22:28 22:30 Pulse 80 77 77 80 Resp 24 25 24 24 B/P (MAP) 109/62 (78) 109/61 (77) 110/67 (81) Pulse Ox 92 92 92 92 09/01/20 09/01/20 09/01/20 09/01/20 22:31 22:34 23:10 23:30 Pulse 78 78 76 77 Resp 24 23 22 22 B/P (MAP) 106/63 (77) 110/63 (79) Pulse Ox 92 92 92 92 FiO2 100 09/01/20 09/01/20 09/01/20 09/01/20 23:31 23:34 23:37 23:40 Pulse 74 76 76 76 Resp 23 26 26 26 B/P (MAP) 113/62 (79) 107/62 (77) 109/61 (77) 109/58 (75) Pulse Ox 92 92 92 93 09/01/20 09/01/20 09/01/20 09/01/20 23:43 23:45 23:46 23:49 Pulse 73 75 74 74 Resp 26 27 28 28 B/P (MAP) 112/62 (79) 112/59 (76) 113/66 (82) Pulse Ox 93 93 93 93 11/09/01/20 09/01/20 09/02/20 23:52 23:55 23:58 00:00 Pulse 83 72 78 Resp B/P (MAP) 116/67 (83) 117/66 (83) 118/65 (82) Pulse Ox 94 93 93 O2 Delivery Mechanical Ventilator 09/02/20 09/02/20 09/02/20 09/02/20 00:00 00:13 00:15 00:16 Pulse 80 75 76 77 Resp B/P (MAP) 114/66 (82) 118/65 (82) Pulse Ox 93 93 93 93 FiO2 100 09/02/20 09/02/20 09/02/20 09/02/20 00:19 00:22 00:25 00:28 Pulse 75 75 76 75 Resp B/P (MAP) 114/67 (83) 119/63 (81) 117/68 (84) 115/65 (82) Pulse Ox 92 93 93 92 09/02/20 09/02/20 09/02/20 09/02/20 00:30 00:31 00:34 00:37 Pulse 76 77 77 80 Resp 27 B/P (MAP) 115/64 (81) 112/62 (79) 110/63 (79) Pulse Ox 92 92 93 92 09/02/20 09/02/20 09/02/20 09/02/20 00:40 00:43 00:45 00:46 Pulse 79 80 82 81 Resp 26 B/P (MAP) 110/63 (79) 107/64 (78) 108/63 (78) Pulse Ox 92 92 92 92 09/02/20 09/02/20 09/02/20 09/02/20 00:49 00:52 00:55 00:58 Pulse 79 80 80 77 Resp 25 B/P (MAP) 109/61 (77) 107/67 (80) 109/65 (80) 109/63 (78) Pulse Ox 92 93 92 93 09/02/20 09/02/20 09/02/20 09/02/20 01:13 01:15 01:16 01:19 Pulse 80 73 76 77 Resp 35 B/P (MAP) 114/60 (78) 107/64 (78) 108/59 (75) Pulse Ox 88 91 92 92 09/02/20 09/02/20 09/02/20 09/02/20 01:22 01:25 01:28 01:30 Pulse 75 74 73 73 Resp B/P (MAP) 110/63 (79) 109/62 (78) 110/61 (77) Pulse Ox 92 93 92 92 09/02/20 09/02/20 09/02/20 09/02/20 01:31 01:34 01:37 01:40 Pulse 75 77 76 76 Resp B/P (MAP) 109/63 (78) 107/61 (76) 105/64 (78) 105/62 (76) Pulse Ox 92 93 93 92 09/02/20 09/02/20 09/02/20 09/02/20 01:43 01:45 01:46 01:49 Pulse 75 74 75 77 Resp B/P (MAP) 104/63 (77) 113/62 (79) 108/64 (79) Pulse Ox 92 92 92 93 09/02/20 09/02/20 09/02/20 09/02/20 01:52 01:55 01:58 02:20 Pulse 79 75 76 79 Resp 18 B/P (MAP) 107/61 (76) 107/62 (77) 110/61 (77) Pulse Ox 93 93 92 93 FiO2 100 09/02/20 09/02/20 09/02/20 09/02/20 02:25 02:28 02:30 02:31 Pulse 74 71 73 70 Resp B/P (MAP) 104/61 (75) 104/59 (74) 104/59 (74) Pulse Ox 93 93 93 93 09/02/20 09/02/20 09/02/20 09/02/20 02:34 02:37 02:40 02:43 Pulse 69 70 70 73 Resp B/P (MAP) 103/60 (74) 102/58 (73) 105/60 (75) 103/59 (74) Pulse Ox 93 93 93 93 09/02/20 09/02/20 09/02/20 09/02/20 02:45 02:46 02:49 02:52 Pulse 73 71 72 74 Resp 23 B/P (MAP) 102/60 (74) 105/60 (75) 101/59 (73) Pulse Ox 93 93 93 93 09/02/20 09/02/20 09/02/20 09/02/20 02:55 02:58 03:00 03:01 Pulse 75 72 73 71 Resp 23 B/P (MAP) 102/56 (71) 103/55 (71) 102/58 (73) Pulse Ox 93 93 93 93 09/02/20 09/02/20 09/02/20 09/02/20 03:04 03:07 03:10 03:13 Pulse 69 70 70 71 Resp 22 B/P (MAP) 100/57 (71) 99/57 (71) 99/59 (72) 102/56 (71) Pulse Ox 93 93 93 93 09/02/20 09/02/20 09/02/20 09/02/20 03:22 03:25 03:28 03:29 Pulse 71 69 69 71 Resp B/P (MAP) 100/60 (73) 102/60 (74) 102/58 (73) Pulse Ox 93 93 93 93 09/02/20 09/02/20 09/02/20 09/02/20 03:31 03:34 03:37 03:40 Pulse 70 69 71 69 Resp 23 B/P (MAP) 103/56 (72) 101/60 (74) 105/61 (76) 105/54 (71) Pulse Ox 93 93 93 93 09/02/20 09/02/20 09/02/20 09/02/20 03:43 03:44 03:46 03:49 Pulse 72 70 69 71 Resp 23 B/P (MAP) 102/58 (73) 104/59 (74) 101/56 (71) Pulse Ox 93 92 93 93 09/02/20 09/02/20 09/02/20 09/02/20 03:52 03:55 03:58 03:59 Pulse 74 75 72 76 Resp 23 B/P (MAP) 104/58 (73) 102/59 (73) 104/56 (72) Pulse Ox 93 93 92 93 09/02/20 09/02/20 09/02/20 09/02/20 04:00 04:00 04:01 04:04 Pulse 80 75 Resp 27 22 B/P (MAP) 103/61 (75) 107/56 (73) Pulse Ox 93 92 90 O2 Delivery Mechanical Ventilator FiO2 100 09/02/20 09/02/20 09/02/20 09/02/20 04:04 04:08 04:08 04:09 Pulse 87 87 Resp B/P (MAP) 107/56 (73) Pulse Ox 90 94 94 92 09/02/20 09/02/20 09/02/20 09/02/20 04:09 04:22 04:24 04:28 Temp 98.8 98.8 98.6 Pulse 123 120 Resp B/P (MAP) 123/65 (84) 128/73 (91) 121/77 (92) Pulse Ox 92 97 98 09/02/20 09/02/20 09/02/20 09/02/20 04:30 04:31 04:34 04:37 Temp 98.6 98.6 98.6 98.6 Pulse 126 115 114 105 Resp B/P (MAP) 129/70 (89) 127/83 (98) 127/82 (97) Pulse Ox 98 98 97 98 09/02/20 09/02/20 09/02/20 09/02/20 04:40 04:43 04:45 04:46 Temp 98.6 98.6 98.6 98.6 Pulse 97 94 94 92 Resp B/P (MAP) 118/63 (81) 115/64 (81) 118/72 (87) Pulse Ox 97 97 97 96 09/02/20 09/02/20 09/02/20 09/02/20 04:49 04:49 04:52 04:55 Temp 98.6 98.6 98.6 Pulse 87 118 122 116 Resp 34 36 B/P (MAP) 139/87 (104) 144/95 (111) 130/74 (92) Pulse Ox 94 98 98 98 FiO2 100 09/02/20 09/02/20 09/02/20 09/02/20 04:58 05:07 05:10 05:13 Temp 98.6 98.6 98.6 98.6 Pulse 104 90 105 99 Resp 22 B/P (MAP) 123/66 (85) 113/67 (82) 130/76 (94) 129/77 (94) Pulse Ox 98 97 97 97 09/02/20 09/02/20 09/02/20 09/02/20 05:15 05:16 05:19 05:22 Temp 98.6 98.6 98.6 98.6 Pulse 122 104 104 112 Resp B/P (MAP) 129/72 (91) 125/74 (91) 140/95 (110) Pulse Ox 98 97 98 98 09/02/20 09/02/20 09/02/20 09/02/20 05:25 05:28 05:30 05:31 Temp 98.6 98.6 98.6 98.6 Pulse 113 95 93 91 Resp B/P (MAP) 136/70 (92) 119/62 (81) 113/65 (81) Pulse Ox 98 97 97 97 09/02/20 09/02/20 09/02/20 09/02/20 05:34 05:37 05:40 05:43 Temp 98.6 98.6 98.6 98.6 Pulse 92 93 105 103 Resp B/P (MAP) 113/62 (79) 118/66 (83) 125/74 (91) 136/83 (100) Pulse Ox 97 97 98 98 09/02/20 09/02/20 09/02/20 09/02/20 05:45 05:46 05:49 05:52 Temp 98.6 98.6 98.6 98.6 Pulse 96 95 90 91 Resp B/P (MAP) 116/66 (83) 116/64 (81) 111/57 (75) Pulse Ox 98 98 97 97 Intake and Output 09/02/20 07:00 Intake Total 1597 ml Output Total 1250 ml Balance 347 ml General: No acute distress, Other (intubated and sedated ) HEENT: Atraumatic, PERRLA, Other (ETT in place ) Neck: Supple, No JVD Lungs: Other (Breath sound are surprisingly clear to auscultation. No notable rales, rhonchi, or wheezing was noted on exam) Heart: Regular rate, Normal S1, Normal S2, No murmurs Abdomen: Normal bowel sounds, Soft Extremities: No clubbing, No cyanosis, No edema, Normal pulses, No tenderness/swelling Skin: No rashes, No breakdown, No significant lesion, Other (There is signicant subq emphysema overlying his chest and neck. ) Neuro: Other (sedated and paralyzed) Psych/Mental Status: Other (deferred; sedated) All Results(Lab/Rad) Laboratory Tests Test 08/31/20 11:40 09/01/20 04:40 Blood Gas Sample Site LR Blood Gas pH 7.430 Blood Gas PCO2 31.9 mmHg Blood Gas PO2 64.2 mmHg Blood Gas HCO3 20.7 mmol/L Blood Gas Base Excess -2.2 mmol/L Vince Test POSITIVE Arterial Blood Oxygen Saturation 92.7 % Deoxyhemoglobin 7.2 % Carboxyhemoglobin 0.3 % Methemoglobin 0.6 % Total Hemoglobin 19.8 % Total Oxygen Concentration 25.5 % Oxygen Delivery Method (LAB) CPAP 12 FiO2 100 % Total Carbon Dioxide 21.7 mmol/L White Blood Count 20.4 10^3/uL Red Blood Count 5.40 10^6/uL Hemoglobin 17.3 g/dL Hematocrit 48.5 % Mean Corpuscular Volume 89.8 fL Mean Corpuscular Hemoglobin 32.0 pg Mean Corpuscular Hemoglobin Concent 35.7 g/dL Red Cell Distribution Width 12.7 % Platelet Count 216 10^3/uL Mean Platelet Volume 9.5 fL Sodium Level 141 mmol/L Potassium Level 4.3 mmol/L Chloride Level 105.0 mmol/L Carbon Dioxide Level 24.8 mmol/L Anion Gap 15.5 Blood Urea Nitrogen 30 mg/dL Creatinine 1.15 mg/dL Estimated GFR () 79.9 Est GFR (CKD-EPI)(Non-Afr [place]) 66.0 BUN/Creatinine Ratio 26.0 Glucose Level 119 mg/dL Calcium Level 8.5 mg/dL Phosphorus Level 4.1 mg/dL Magnesium Level 3.0 mg/dL Total Bilirubin 1.1 mg/dL Aspartate Amino Transf (AST/SGOT) 56 U/L Alanine Aminotransferase (ALT/SGPT) 56 U/L Alkaline Phosphatase 84 U/L Total Protein 7.0 g/dL Albumin 2.4 g/dL Globulin 4.6 Albumin/Globulin Ratio 0.521 Current Medications Medications (Trade) Dose Ordered Sig/Estuardo Route PRN Reason Start Time Stop Time Status Last Admin Dose Admin Enoxaparin Sodium (Lovenox) 40 mg DAILY SQ 08/31/20 09:00 09/30/20 08:59 08/31/20 09:33 Remdesivir 200 mg/ Sodium Chloride 140 ml @ 120.69 mls/ hr OT IV 08/31/20 09:30 08/31/20 10:40 DC 08/31/20 09:38 Lorazepam (Ativan) 1 mg Q3HR PRN IV ANXIETY 08/31/20 05:00 09/30/20 04:59 09/01/20 06:00 Azithromycin 500 mg/Sodium Chloride 250 ml @ 175 mls/hr Q24HRS IV 08/31/20 05:00 09/04/20 08:00 09/01/20 05:00 Ceftriaxone Sodium 1000 mg/ Sodium Chloride 100 ml @ 100 mls/hr Q24HRS IV 08/31/20 05:00 09/30/20 04:59 09/01/20 05:00 Lorazepam (Ativan) 1 mg STAT STAT IV 08/31/20 05:16 08/31/20 08:31 DC 08/31/20 05:34 Sodium Chloride 100 ml @ ud STK-MED ONCE IV 08/31/20 05:18 08/31/20 05:21 DC Ceftriaxone Sodium (Rocephin) 1,000 mg STK-MED ONCE .ROUTE 08/31/20 05:19 08/31/20 05:21 DC Sodium Chloride 500 ml @ ud STK-MED ONCE IV 08/31/20 05:37 08/31/20 05:40 DC Morphine Sulfate (Morphine Sulfate) 0.5 mg STAT ONCE IV 08/31/20 06:15 08/31/20 08:44 DC 08/31/20 06:15 Albuterol/ Ipratropium (Duo 0.5-3(2.5) Mg/3 ml) 3 ml RTQ6H IH 08/31/20 08:00 09/30/20 07:59 08/31/20 16:30 Albuterol Sulfate (Ventolin) 2.5 mg RTQ4 PRN IH WHEEZING 08/31/20 08:00 09/30/20 07:59 Furosemide (Lasix) 40 mg STAT STAT IV 08/31/20 07:55 08/31/20 08:44 DC 08/31/20 08:08 Morphine Sulfate (Morphine Sulfate) 0.5 mg OT STAT IV 08/31/20 07:56 08/31/20 08:44 DC 08/31/20 08:25 Lorazepam (Ativan) 0.5 mg STAT STAT IV 08/31/20 07:56 08/31/20 08:43 DC 08/31/20 08:23 Sodium Chloride 250 ml @ ud STK-MED ONCE IV 08/31/20 08:03 08/31/20 08:05 DC Sodium Chloride 100 ml @ ud STK-MED ONCE IV 08/31/20 09:34 08/31/20 09:36 DC Remdesivir 100 mg/ Sodium Chloride 120 ml @ 111.111 mls/hr Q24HRS IV 09/01/20 09:00 10/01/20 08:59 Aspirin (Aspirin) 81 mg DAILY PO 09/01/20 09:00 10/01/20 08:59 Famotidine (Pepcid) 20 mg BID PO 08/31/20 21:00 09/30/20 20:59 08/31/20 20:46 Ascorbic Acid (Vitamin C) 500 mg BID PO 08/31/20 21:00 09/30/20 20:59 08/31/20 21:00 Zinc Sulfate (Zinc Sulfate) 220 mg DAILY PO 08/31/20 21:00 09/30/20 20:59 08/31/20 21:00 Guaifenesin (Robitussin Dm) 5 ml Q4HR PRN PO COUGH 09/01/20 01:30 10/01/20 01:29 Morphine Sulfate (Morphine Sulfate) 2 mg STK-MED ONCE .ROUTE 09/01/20 03:32 09/01/20 03:34 DC Morphine Sulfate (Morphine Sulfate) 0.5 mg STAT STAT IV 09/01/20 03:33 09/01/20 03:35 DC 09/01/20 03:33 Sodium Chloride 100 ml @ ud STK-MED ONCE IV 09/01/20 05:28 09/01/20 05:30 DC Sodium Chloride 250 ml @ ud STK-MED ONCE IV 09/01/20 05:29 09/01/20 05:30 DC Ceftriaxone Sodium (Rocephin) 1,000 mg STK-MED ONCE .ROUTE 09/01/20 05:29 09/01/20 05:31 DC Benzonatate (Tessalon Perle) 100 mg Q2 PRN PO COUGH 09/01/20 06:00 09/01/20 05:50 DC Dexmedetomidine HCl 200 mcg/ Sodium Chloride 50 ml @ 0 mls/hr IV 09/01/20 06:00 10/01/20 05:59 Sodium Chloride 250 ml @ ud STK-MED ONCE IV 09/01/20 05:37 09/01/20 05:39 DC Benzonatate (Tessalon Perle) 200 mg TID PRN PO COUGH 09/01/20 06:00 10/01/20 05:59 09/01/20 06:00 Acetaminophen/ Hydrocodone Bitart ([place] 5mg) 1 ea TID PRN PO PAIN 4 - 6 09/01/20 06:00 10/01/20 05:59 Assessment/Plan Assessment/Plan Assessment/Plan Pt is a 54 y/o M with PMHx of HTN, HLD, obesity, and anxiety. He was admitted the morning of 08/31 as a transfer from OSH for acute hypoxemic respiratory failure and COVID-19. He was started on full spectrum treatment for COVID-19 with IV Decadron, Azithromycin, Remdesivir, CCP, Zinc, and Vitamin C. On arrival to this facility, he was in mild to moderate respiratory distress and required continuous CPAP to maintain Oxygenation. He remained relatively stable throughout 08/31, but started becoming more fatigued the evening of 08/31, and was moved to the ICU for closer monitoring. In the ICU, he was continued on CPAP in an effort to avoid intubation. However, he continued to have difficulty with NIPPV and was frequently dyssynchronous, causing further desaturations. He was also noted to have Sub q emphysema in his chest and neck, which was concerning for barotrauma due to continued dyssynchrony. The morning of 09/01, he was noted to be in worsened respiratory distress and there was concern for impending respiratory collapse due to fatigue. The patient and I discussed intubation and he agreed to be electively intubated before he decompensated completely. The on- call CONFERENCE INTERPRETER was called and the patient was subsequently intubated without complication. He was started on Propofol and fentanyl drips and paralyzed with IV vecuronium pushes. He has tolerated mechanical ventilation rather well and his O2 sats and PaO2 have improved markedly. Prior to intubation his ABG showed normal pH and a PaO2 in the 50's. His PaO2 improved to 70's within the hour, and was 150's on his most recent ABG the evening of 09/01. Of note, I did discuss the possibility of prolonged intubation, need for tracheostomy, and whether this is something that he would want done. He agreed that tracheostomy and long-term vent weaning is something that he would be ok with if it came down to it. # COVID-19 Pneumonia # Acute Hypoxemic Respiratory Failure # Need for Mechanical Ventilation # Pneumomediastinum without pneumothorax # Leukocytosis # HTN # HLD # Anxiety PLAN: - continue mechanical ventilation. - TeleMed Gas Jockey for assistance with vent management - Keep Pplat < 30 to limit risk of pneumothorax and barotrauma. - If patient decompensates and becomes markedly hypoxemia and/or hypotension, think Tension Pneumo and perform emergent needle decompression - continue IV decadron, Azithromycin, Remdesivir, CCP, Zinc, and Vitamin C - Contiue Rocephin for now. Follow procal. Consider discontinuing when Procal < 0.25 - continue Propofol/Fentanyl for sedation/analgesia; precedex is available for backup sedation if needed - continue IV Vecuronium 5mg q1h + IV Vec 2mg q30min PRN. Vec drips are not available here - continue ASA 81 - trend COVID markers q48h - CXR q48h and PRN - start TF per dietary rec's Sedation: propofol Analgesia: Fent VTE ppx: Lovenox GI ppx: Pepcid Diet: TF per dietary recs CODE: male impersonator Spent: > 40 minutes between evaluation, coordination of care, and documentation JAMAICA DE LA PAZ MD Sep 02, 2020 08:14
[2020-09-02] MEDS ORDERED: DUONEB 0.5 MG-3 MG/3 ML SOLN IH ONE (08:37)
[2020-09-02] MEDS: DUO 0.5-3(2.5) MG/3 ML IH SCH ×3 (09:06→23:10)
[2020-09-02] MEDS: PRECEDEX IV SCH (13:29)
[2020-09-02] MEDS: NS IV SCH (13:29)
--- NOTE | 2020-09-02 13:49 | TELE.CONS ---
Consultation Reason for Consult: Reason for Consultation: resp failure, covid History of Present Illness History of Patient Comments pt remains intubate, sedated Review of Systems ENT: Other Allergies: Coded Allergies: Sulfa (Sulfonamide Antibiotics) (Verified Allergy, Mild, 08/31/20) Scheduled Atorvastatin 10MG (Lipitor 10MG), 1 TAB PO HS, (Reported) Bisoprolol Fumarate/Hctz (Bisoprolol-Hctz 5-6.25 Mg Tab), 1 TAB PO DAILY, (Reported) Temazepam (Restoril), 1 CAP PO HS, (Reported) VITALS REVIEW VITALS Vital Sign - Last 24 Hours 08/31/20 08/31/20 08/31/20 08/31/20 00:59 00:59 00:59 01:31 Temp 99.3 99.1 99.1 99.1 Pulse 96 96 96 89 Resp 22 22 22 22 B/P (MAP) 154/64 (94) 133/78 (96) Pulse Ox 85 85 85 O2 Delivery Non-Rebreather Non-Rebreather O2 Flow Rate 15.00 15.00 08/31/20 08/31/20 08/31/20 08/31/20 02:09 03:00 03:05 03:25 Temp 99.2 99.2 99.6 Pulse 85 86 102 Resp 23 22 22 B/P (MAP) 130/82 (98) 135/75 (95) 159/87 (111) Pulse Ox 90 91 90 O2 Delivery Non-Rebreather Bi-pap Non-Rebreather Non-Rebreather O2 Flow Rate 15.00 100.00 15.00 15.00 08/31/20 08/31/20 08/31/20 08/31/20 04:27 04:48 04:56 06:14 Temp 99.3 Pulse 92 114 85 Resp 30 42 22 B/P (MAP) 136/82 (100) Pulse Ox 86 88 90 O2 Delivery Comfort Ryne S/T Non-Rebreather S/T O2 Flow Rate 60.00 15.00 FiO2 100 100 100 08/31/20 08/31/20 08/31/20 08/31/20 08:08 08:30 08:54 08:54 Pulse 111 114 Resp 39 44 B/P (MAP) 141/91 Pulse Ox 91 91 O2 Delivery Bi-pap 11/2008/31/20 08/31/20 08/31/20 08:57 08:57 09:03 11:27 Temp 100.0 Pulse 119 110 103 104 Resp 44 45 60 36 B/P (MAP) 141/91 (108) Pulse Ox 90 87 89 94 O2 Delivery CPAP CPAP FiO2 100 100 08/31/20 08/31/20 08/31/20 08/31/20 11:49 14:30 15:23 15:45 Temp 98.5 Pulse 111 92 91 Resp 58 49 49 B/P (MAP) 119/85 (96) Pulse Ox 89 90 90 O2 Delivery CPAP FiO2 100 08/31/20 08/31/20 08/31/20 08/31/20 15:52 16:00 16:00 16:30 Temp 97.3 98.0 Pulse 93 85 92 Resp 44 55 40 B/P (MAP) 145/95 (112) 128/78 (95) Pulse Ox 89 91 91 O2 Delivery Bi-pap 08/31/20 08/31/20 08/31/20 08/31/20 16:34 16:45 16:49 17:00 Pulse 86 86 98 89 Resp 62 34 42 B/P (MAP) 127/82 (97) Pulse Ox 90 89 88 93 08/31/20 08/31/20 08/31/20 08/31/20 17:01 17:02 17:02 17:04 Pulse 93 99 101 87 Resp 39 39 38 37 B/P (MAP) 128/78 (95) Pulse Ox 92 91 91 90 O2 Delivery CPAP FiO2 100 08/31/20 08/31/20 08/31/20 08/31/20 17:15 17:19 17:30 17:34 Pulse 83 89 91 88 Resp 78 34 32 B/P (MAP) 136/109 (118) 134/78 (96) Pulse Ox 90 87 89 88 08/31/20 08/31/20 08/31/20 08/31/20 17:45 17:49 18:00 18:02 Pulse 89 87 89 92 Resp 69 54 47 B/P (MAP) 134/91 (105) Pulse Ox 86 89 88 89 O2 Delivery CPAP FiO2 100 08/31/20 08/31/20 08/31/20 08/31/20 18:04 18:15 18:19 19:34 Pulse 84 86 77 82 Resp 43 26 39 49 B/P (MAP) 138/68 (91) 125/58 (80) 117/74 (88) Pulse Ox 88 91 90 93 08/31/20 08/31/20 08/31/20 08/31/20 19:45 19:49 20:00 20:00 Pulse 74 69 97 Resp 41 42 57 B/P (MAP) 118/69 (85) Pulse Ox 94 92 86 O2 Delivery C-Pap 08/31/20 08/31/20 08/31/20 08/31/20 20:04 20:15 20:19 20:30 Pulse 87 71 81 81 Resp 37 28 41 B/P (MAP) 121/77 (92) 124/69 (87) Pulse Ox 88 93 91 91 08/31/20 08/31/20 08/31/20 08/31/20 20:34 20:45 20:49 20:50 Temp 97.0 Pulse 78 76 84 Resp 43 48 B/P (MAP) 124/69 (87) 115/79 (91) Pulse Ox 90 93 91 08/31/20 08/31/20 08/31/20 08/31/20 21:00 21:04 21:15 21:19 Pulse 82 88 86 86 Resp 47 57 26 40 B/P (MAP) 126/84 (98) 138/72 (94) Pulse Ox 91 87 89 87 08/31/20 08/31/20 08/31/20 08/31/20 21:30 21:34 21:45 21:45 Pulse 99 92 88 98 Resp 42 33 83 B/P (MAP) 142/85 (104) Pulse Ox 88 89 91 89 O2 Delivery CPAP FiO2 100 08/31/20 08/31/20 08/31/20 09/01/20 22:44 22:46 22:46 00:00 Temp 98.4 Pulse 88 88 88 Resp 33 33 33 Pulse Ox 90 90 91 09/01/20 09/01/20 09/01/20 09/01/20 00:00 00:30 04:00 04:00 Temp 98.1 Pulse 83 Resp 41 Pulse Ox 92 O2 Delivery C-Pap CPAP C-Pap FiO2 100 09/01/20 09/01/20 09/01/20 09/01/20 04:00 04:09 04:15 04:23 Pulse 73 94 86 76 Resp 43 36 27 50 B/P (MAP) 133/71 (91) 104/49 (67) Pulse Ox 92 83 89 91 09/01/20 09/01/20 09/01/20 09/01/20 04:30 04:39 04:45 04:54 Pulse 82 96 94 Resp 42 48 B/P (MAP) 131/87 (102) 105/43 (63) Pulse Ox 91 82 86 85 09/01/20 09/01/20 09/01/20 09/01/20 05:00 05:00 05:08 05:15 Pulse 84 103 110 99 Resp 40 47 73 46 B/P (MAP) 120/75 (90) Pulse Ox 93 85 83 90 O2 Delivery CPAP FiO2 100 09/01/20 09/01/20 09/01/20 09/01/20 05:23 05:30 05:38 05:45 Pulse 102 88 94 88 Resp 28 33 47 B/P (MAP) 110/66 (81) 118/71 (87) Pulse Ox 79 82 88 91 09/01/20 09/01/20 09/01/20 09/01/20 05:53 07:15 09:36 09:36 Pulse 98 111 107 Resp 45 45 B/P (MAP) 116/76 (89) Pulse Ox 87 91 90 O2 Delivery C-Pap 09/01/20 09/01/20 09/01/20 09/01/20 09:37 10:47 11:00 11:48 Pulse 111 76 76 Resp 51 22 22 Pulse Ox 91 91 91 O2 Delivery CPAP Mechanical Ventilator FiO2 100 100 100 09/01/20 09/01/20 09/01/20 09/01/20 14:50 14:50 14:50 14:54 Pulse 74 74 76 74 Resp 22 22 22 22 Pulse Ox 94 94 91 94 FiO2 100 09/01/20 09/01/20 09/01/20 09/01/20 15:00 15:48 15:58 16:00 Pulse 102 73 75 Resp 25 24 B/P (MAP) 107/69 (82) Pulse Ox 91 95 95 O2 Delivery Mechanical Ventilator 09/01/20 09/01/20 09/01/20 09/01/20 16:01 16:04 16:07 16:10 Pulse 77 75 78 73 Resp 23 23 24 22 B/P (MAP) 104/66 (79) 102/63 (76) 104/58 (73) 102/62 (75) Pulse Ox 95 95 95 95 09/01/20 09/01/20 09/01/20 09/01/20 16:13 16:15 16:16 16:19 Pulse 72 77 77 77 Resp 21 23 23 22 B/P (MAP) 101/62 (75) 107/61 (76) 100/61 (74) Pulse Ox 95 95 95 96 09/01/20 09/01/20 09/01/20 09/01/20 16:22 16:25 16:28 16:30 Pulse 78 76 77 78 Resp 23 24 23 23 B/P (MAP) 100/60 (73) 105/61 (76) 101/65 (77) Pulse Ox 95 95 95 95 09/01/20 09/01/20 09/01/20 09/01/20 16:31 16:34 16:37 16:56 Pulse 77 77 79 73 Resp 24 24 23 22 B/P (MAP) 102/61 (75) 101/64 (76) 98/62 (74) Pulse Ox 95 96 95 93 FiO2 100 09/01/20 09/01/20 09/01/20 09/01/20 19:13 19:15 19:16 19:19 Pulse 67 79 81 73 Resp 22 24 25 B/P (MAP) 106/72 (83) 112/67 (82) 105/60 (75) Pulse Ox 96 85 91 92 09/01/20 09/01/20 09/01/20 09/01/20 19:22 19:25 19:28 19:30 Pulse 74 71 73 73 Resp 24 23 23 24 B/P (MAP) 105/60 (75) 106/61 (76) 106/62 (77) Pulse Ox 91 91 91 92 09/01/20 09/01/20 09/01/20 09/01/20 19:31 19:34 19:37 19:40 Pulse 72 72 72 71 Resp 23 23 23 23 B/P (MAP) 106/62 (77) 107/64 (78) 102/60 (74) 105/61 (76) Pulse Ox 92 92 92 92 09/01/20 09/01/20 09/01/20 09/01/20 19:43 19:45 19:46 19:49 Pulse 72 71 71 72 Resp 22 23 24 24 B/P (MAP) 108/59 (75) 107/61 (76) 106/61 (76) Pulse Ox 92 92 92 92 09/01/20 09/01/20 09/01/20 09/01/20 19:52 19:55 19:58 20:00 Pulse 72 72 73 72 Resp 23 23 23 26 B/P (MAP) 104/64 (77) 104/63 (77) 100/62 (75) Pulse Ox 92 92 91 92 FiO2 100 09/01/20 09/01/20 09/01/20 09/01/20 20:00 20:13 20:15 20:16 Pulse 72 73 73 Resp 23 23 23 B/P (MAP) 105/61 (76) 106/63 (77) Pulse Ox 90 90 90 O2 Delivery Mechanical Ventilator 09/01/20 09/01/20 09/01/20 09/01/20 20:19 20:22 20:25 20:28 Pulse 73 72 73 72 Resp 23 23 B/P (MAP) 105/63 (77) 104/62 (76) 106/61 (76) 102/62 (75) Pulse Ox 90 91 90 91 09/01/20 09/01/20 09/01/20 09/01/20 20:30 20:31 20:34 20:37 Pulse 71 72 69 73 Resp 23 23 22 22 B/P (MAP) 107/66 (80) 103/55 (71) 99/57 (71) Pulse Ox 91 91 90 90 09/01/20 09/01/20 09/01/20 09/01/20 20:40 20:43 20:45 20:46 Pulse 71 70 77 72 Resp 22 22 22 22 B/P (MAP) 105/61 (76) 103/62 (76) 111/64 (80) Pulse Ox 90 90 91 92 09/01/20 09/01/20 09/01/20 09/01/20 20:49 20:52 20:55 20:58 Pulse 73 73 67 74 Resp 22 22 22 23 B/P (MAP) 104/61 (75) 108/62 (77) 111/63 (79) 108/63 (78) Pulse Ox 92 92 93 92 09/01/20 09/01/20 09/01/20 09/01/20 21:10 21:11 21:12 21:12 Pulse 74 74 74 74 Resp 22 22 22 22 Pulse Ox 91 91 91 91 FiO2 100 09/01/20 09/01/20 09/01/20 09/01/20 21:46 21:49 21:52 21:55 Pulse 80 80 79 79 Resp 22 22 22 22 B/P (MAP) 106/62 (77) 110/63 (79) 109/63 (78) 110/58 (75) Pulse Ox 91 92 91 91 09/01/20 09/01/20 09/01/20 09/01/20 21:58 22:00 22:01 22:04 Pulse 79 78 80 80 Resp 22 22 22 23 B/P (MAP) 108/59 (75) 108/64 (79) 106/60 (75) Pulse Ox 92 92 92 92 09/01/20 09/01/20 09/01/20 09/01/20 22:07 22:10 22:13 22:15 Pulse 81 79 77 80 Resp 25 24 24 23 B/P (MAP) 107/61 (76) 107/63 (78) 110/65 (80) Pulse Ox 92 92 92 92 09/01/20 09/01/20 09/01/20 09/01/20 22:16 22:19 22:22 22:25 Pulse 79 80 80 77 Resp 24 25 24 25 B/P (MAP) 106/60 (75) 111/61 (78) 109/62 (78) 109/61 (77) Pulse Ox 92 92 92 92 09/01/20 09/01/20 09/01/20 09/01/20 22:28 22:30 22:31 22:34 Pulse 77 80 78 78 Resp 24 24 24 23 B/P (MAP) 110/67 (81) 106/63 (77) 110/63 (79) Pulse Ox 92 92 92 92 09/01/20 09/01/20 09/01/20 09/01/20 23:10 23:30 23:31 23:34 Pulse 76 77 74 76 Resp 22 22 23 26 B/P (MAP) 113/62 (79) 107/62 (77) Pulse Ox 92 92 92 92 FiO2 100 09/01/20 09/01/20 09/01/20 09/01/20 23:37 23:40 23:43 23:45 Pulse 76 76 73 75 Resp 26 26 26 27 B/P (MAP) 109/61 (77) 109/58 (75) 112/62 (79) Pulse Ox 92 93 93 93 09/01/20 09/01/20 09/01/20 09/01/20 23:46 23:49 23:52 23:55 Pulse 74 74 83 72 Resp B/P (MAP) 112/59 (76) 113/66 (82) 116/67 (83) 117/66 (83) Pulse Ox 93 93 94 93 09/01/20 09/02/20 09/02/20 09/02/20 23:58 00:00 00:00 00:13 Pulse 78 80 75 Resp B/P (MAP) 118/65 (82) 114/66 (82) Pulse Ox 93 93 93 O2 Delivery Mechanical Ventilator FiO2 100 09/02/20 09/02/20 09/02/20 09/02/20 00:15 00:16 00:19 00:22 Pulse 76 77 75 75 Resp B/P (MAP) 118/65 (82) 114/67 (83) 119/63 (81) Pulse Ox 93 93 92 93 09/02/20 09/02/20 09/02/20 09/02/20 00:25 00:28 00:30 00:31 Pulse 76 75 76 77 Resp B/P (MAP) 117/68 (84) 115/65 (82) 115/64 (81) Pulse Ox 93 92 92 92 09/02/20 09/02/20 09/02/20 09/02/20 00:34 00:37 00:40 00:43 Pulse 77 80 79 80 Resp B/P (MAP) 112/62 (79) 110/63 (79) 110/63 (79) 107/64 (78) Pulse Ox 93 92 92 92 09/02/20 09/02/20 09/02/20 09/02/20 00:45 00:46 00:49 00:52 Pulse 82 81 79 80 Resp B/P (MAP) 108/63 (78) 109/61 (77) 107/67 (80) Pulse Ox 92 92 92 93 09/02/20 09/02/20 09/02/20 09/02/20 00:55 00:58 01:13 01:15 Pulse 80 77 80 73 Resp 24 25 35 22 B/P (MAP) 109/65 (80) 109/63 (78) 114/60 (78) Pulse Ox 92 93 88 91 09/02/20 09/02/20 09/02/20 09/02/20 01:16 01:19 01:22 01:25 Pulse 76 77 75 74 Resp 22 B/P (MAP) 107/64 (78) 108/59 (75) 110/63 (79) 109/62 (78) Pulse Ox 92 92 92 93 09/02/20 09/02/20 09/02/20 09/02/20 01:28 01:30 01:31 01:34 Pulse 73 73 75 77 Resp B/P (MAP) 110/61 (77) 109/63 (78) 107/61 (76) Pulse Ox 92 92 92 93 09/02/20 09/02/20 09/02/20 09/02/20 01:37 01:40 01:43 01:45 Pulse 76 76 75 74 Resp 22 B/P (MAP) 105/64 (78) 105/62 (76) 104/63 (77) Pulse Ox 93 92 92 92 09/02/20 09/02/20 09/02/20 09/02/20 01:46 01:49 01:52 01:55 Pulse 75 77 79 75 Resp B/P (MAP) 113/62 (79) 108/64 (79) 107/61 (76) 107/62 (77) Pulse Ox 92 93 93 93 09/02/20 09/02/20 09/02/20 09/02/20 01:58 02:20 02:25 02:28 Pulse 76 79 74 71 Resp 22 B/P (MAP) 110/61 (77) 104/61 (75) 104/59 (74) Pulse Ox 92 93 93 93 FiO2 100 09/02/20 09/02/20 09/02/20 09/02/20 02:30 02:31 02:34 02:37 Pulse 73 70 69 70 Resp 22 B/P (MAP) 104/59 (74) 103/60 (74) 102/58 (73) Pulse Ox 93 93 93 93 09/02/20 09/02/20 09/02/20 09/02/20 02:40 02:43 02:45 02:46 Pulse 70 73 73 71 Resp B/P (MAP) 105/60 (75) 103/59 (74) 102/60 (74) Pulse Ox 93 93 93 93 09/02/20 09/02/20 09/02/20 09/02/20 02:49 02:52 02:55 02:58 Pulse 72 74 75 72 Resp B/P (MAP) 105/60 (75) 101/59 (73) 102/56 (71) 103/55 (71) Pulse Ox 93 93 93 93 09/02/20 09/02/20 09/02/20 09/02/20 03:00 03:01 03:04 03:07 Pulse 73 71 69 70 Resp B/P (MAP) 102/58 (73) 100/57 (71) 99/57 (71) Pulse Ox 93 93 93 93 09/02/20 09/02/20 09/02/20 09/02/20 03:10 03:13 03:22 03:25 Pulse 70 71 71 69 Resp B/P (MAP) 99/59 (72) 102/56 (71) 100/60 (73) 102/60 (74) Pulse Ox 93 93 93 93 09/02/20 09/02/20 09/02/20 09/02/20 03:28 03:29 03:31 03:34 Pulse 69 71 70 69 Resp B/P (MAP) 102/58 (73) 103/56 (72) 101/60 (74) Pulse Ox 93 93 93 93 09/02/20 09/02/20 09/02/20 09/02/20 03:37 03:40 03:43 03:44 Pulse 71 69 72 70 Resp B/P (MAP) 105/61 (76) 105/54 (71) 102/58 (73) Pulse Ox 93 93 93 92 09/02/20 09/02/20 09/02/20 09/02/20 03:46 03:49 03:52 03:55 Pulse 69 71 74 75 Resp B/P (MAP) 104/59 (74) 101/56 (71) 104/58 (73) 102/59 (73) Pulse Ox 93 93 93 93 09/02/20 09/02/20 09/02/20 09/02/20 03:58 03:59 04:00 04:00 Pulse 72 76 80 Resp B/P (MAP) 104/56 (72) Pulse Ox 92 93 93 O2 Delivery Mechanical Ventilator FiO2 100 09/02/20 09/02/20 09/02/20 09/02/20 04:01 04:04 04:04 04:08 Pulse 75 87 Resp 22 22 B/P (MAP) 103/61 (75) 107/56 (73) 107/56 (73) Pulse Ox 92 90 90 94 09/02/20 09/02/20 09/02/20 09/02/20 04:08 04:09 04:09 04:22 Temp 98.8 Pulse 87 Resp B/P (MAP) 123/65 (84) Pulse Ox 94 92 92 09/02/20 09/02/20 09/02/20 09/02/20 04:24 04:28 04:30 04:31 Temp 98.8 98.6 98.6 98.6 Pulse 123 120 126 115 Resp B/P (MAP) 128/73 (91) 121/77 (92) 129/70 (89) Pulse Ox 97 98 98 98 09/02/20 09/02/20 09/02/20 09/02/20 04:34 04:37 04:40 04:43 Temp 98.6 98.6 98.6 98.6 Pulse 114 105 97 94 Resp B/P (MAP) 127/83 (98) 127/82 (97) 118/63 (81) 115/64 (81) Pulse Ox 97 98 97 97 09/02/20 09/02/20 09/02/20 09/02/20 04:45 04:46 04:49 04:49 Temp 98.6 98.6 98.6 Pulse 94 92 87 118 Resp B/P (MAP) 118/72 (87) 139/87 (104) Pulse Ox 97 96 94 98 FiO2 100 09/02/20 09/02/20 09/02/20 09/02/20 04:52 04:55 04:58 05:07 Temp 98.6 98.6 98.6 98.6 Pulse 122 116 104 90 Resp 34 36 32 28 B/P (MAP) 144/95 (111) 130/74 (92) 123/66 (85) 113/67 (82) Pulse Ox 98 98 98 97 09/02/20 09/02/20 09/02/20 09/02/20 05:10 05:13 05:15 05:16 Temp 98.6 98.6 98.6 98.6 Pulse 105 99 122 104 Resp B/P (MAP) 130/76 (94) 129/77 (94) 129/72 (91) Pulse Ox 97 97 98 97 09/02/20 09/02/20 09/02/20 09/02/20 05:19 05:22 05:25 05:28 Temp 98.6 98.6 98.6 98.6 Pulse 104 112 113 95 Resp B/P (MAP) 125/74 (91) 140/95 (110) 136/70 (92) 119/62 (81) Pulse Ox 98 98 98 97 09/02/20 09/02/20 09/02/20 09/02/20 05:30 05:31 05:34 05:37 Temp 98.6 98.6 98.6 98.6 Pulse 93 91 92 93 Resp B/P (MAP) 113/65 (81) 113/62 (79) 118/66 (83) Pulse Ox 97 97 97 97 09/02/20 09/02/20 09/02/20 09/02/20 05:40 05:43 05:45 05:46 Temp 98.6 98.6 98.6 98.6 Pulse 105 103 96 95 Resp B/P (MAP) 125/74 (91) 136/83 (100) 116/66 (83) Pulse Ox 98 98 98 98 09/02/20 09/02/20 09/02/20 09/02/20 05:49 05:52 07:00 07:00 Temp 98.6 98.6 Pulse 90 91 80 Resp B/P (MAP) 116/64 (81) 111/57 (75) Pulse Ox 97 97 93 O2 Delivery Mechanical Ventilator FiO2 100 09/02/20 09/02/20 09/02/20 09/02/20 07:21 07:21 07:28 07:30 Temp 99.0 99.0 Pulse 98 98 83 87 Resp B/P (MAP) 112/65 (81) Pulse Ox 97 97 97 97 FiO2 100 09/02/20 09/02/20 09/02/20 09/02/20 07:31 07:34 07:37 07:40 Temp 99.0 99.0 99.0 99.1 Pulse 80 80 80 78 Resp 23 B/P (MAP) 106/60 (75) 108/62 (77) 107/56 (73) 112/65 (81) Pulse Ox 97 97 97 97 09/02/20 09/02/20 09/02/20 09/02/20 07:43 07:45 07:46 07:49 Temp 99.1 99.1 99.1 99.1 Pulse 81 78 85 84 Resp B/P (MAP) 106/58 (74) 108/60 (76) 107/60 (76) Pulse Ox 97 97 97 97 09/02/20 09/02/20 09/02/20 09/02/20 07:52 07:55 07:58 08:00 Temp 99.1 99.1 99.3 99.1 Pulse 83 100 94 87 Resp 34 43 26 45 B/P (MAP) 106/59 (75) 113/71 (85) 107/67 (80) Pulse Ox 97 97 97 97 09/02/20 09/02/20 09/02/20 09/02/20 08:01 08:04 08:07 08:10 Temp 99.1 99.3 99.1 99.1 Pulse 84 84 83 83 Resp 36 36 25 28 B/P (MAP) 105/57 (73) 99/60 (73) 103/62 (76) 101/51 (68) Pulse Ox 97 96 97 96 09/02/20 09/02/20 09/02/20 09/02/20 08:13 08:30 08:31 08:34 Temp 99.1 99.3 99.3 99.3 Pulse 84 84 83 82 Resp 24 B/P (MAP) 102/53 (69) 104/59 (74) 103/56 (72) Pulse Ox 96 96 96 96 09/02/20 09/02/20 09/02/20 09/02/20 08:37 08:40 08:43 08:45 Temp 99.3 99.3 99.3 99.3 Pulse 80 84 84 83 Resp B/P (MAP) 97/54 (68) 103/54 (70) 97/58 (71) Pulse Ox 96 96 96 96 09/02/20 09/02/20 09/02/20 09/02/20 08:46 08:49 08:52 08:55 Temp 99.3 99.3 99.3 99.3 Pulse 82 83 83 84 Resp B/P (MAP) 97/55 (69) 97/55 (69) 100/58 (72) 96/59 (71) Pulse Ox 96 96 96 96 09/02/20 09/02/20 09/02/20 09/02/20 08:58 09:00 09:01 09:04 Temp 99.3 99.3 99.5 99.3 Pulse 83 90 95 98 Resp B/P (MAP) 102/57 (72) 130/76 (94) 133/81 (98) Pulse Ox 96 97 97 97 09/02/20 09/02/20 09/02/20 09/02/20 09:06 09:06 09:07 09:10 Temp 99.3 99.3 Pulse 99 98 99 95 Resp B/P (MAP) 135/76 (95) 136/79 (98) Pulse Ox 97 97 97 98 09/02/20 09/02/20 09/02/20 09/02/20 09:13 09:15 09:15 09:16 Temp 99.3 99.3 99.3 99.3 Pulse 85 102 102 84 Resp B/P (MAP) 145/91 (109) 131/78 (95) Pulse Ox 98 98 98 97 09/02/20 09/02/20 09/02/20 09/02/20 09:16 09:30 09:32 09:45 Temp 99.3 99.1 99.1 99.3 Pulse 84 82 84 80 Resp B/P (MAP) 131/78 (95) 114/63 (80) Pulse Ox 97 97 98 98 11/22/09/02/20 09/02/20 09/02/20 09:47 09:59 10:00 10:02 Temp 99.3 99.3 99.3 Pulse 79 83 81 80 Resp B/P (MAP) 114/62 (79) 110/61 (77) Pulse Ox 98 98 98 98 FiO2 100 09/02/20 09/02/20 09/02/20 09/02/20 10:15 10:15 10:17 10:17 Temp 99.3 99.3 99.3 99.3 Pulse 84 84 83 83 Resp B/P (MAP) 114/61 (78) 114/61 (78) Pulse Ox 97 97 98 98 09/02/20 09/02/20 09/02/20 09/02/20 10:30 10:30 10:32 10:45 Temp 99.3 99.3 99.3 Pulse 84 82 85 Resp B/P (MAP) 111/61 (78) Pulse Ox 97 97 97 FiO2 90 09/02/20 09/02/20 09/02/20 09/02/20 10:47 11:00 11:02 11:15 Temp 99.3 99.3 99.5 99.5 Pulse 84 89 87 91 Resp B/P (MAP) 108/60 (76) 111/61 (78) Pulse Ox 97 97 96 95 09/02/20 09/02/20 09/02/20 09/02/20 11:17 11:26 11:26 11:30 Temp 99.5 99.5 Pulse 87 80 83 Resp B/P (MAP) 111/67 (82) Pulse Ox 95 93 96 O2 Delivery Mechanical Ventilator FiO2 100 09/02/20 09/02/20 09/02/20 09/02/20 11:32 11:39 11:45 11:45 Temp 99.5 99.5 99.5 Pulse 85 90 85 85 Resp B/P (MAP) 118/68 (85) Pulse Ox 95 97 97 97 FiO2 90 09/02/20 09/02/20 09/02/20 09/02/20 11:47 11:47 12:00 12:02 Temp 99.5 99.5 99.5 99.5 Pulse 89 89 84 83 Resp B/P (MAP) 126/69 (88) 126/69 (88) 121/68 (85) Pulse Ox 96 96 97 97 09/02/20 09/02/20 09/02/20 09/02/20 12:15 12:17 12:30 12:32 Temp 99.5 99.5 99.3 99.3 Pulse 81 82 86 81 Resp B/P (MAP) 120/67 (84) 116/71 (86) Pulse Ox 97 97 96 96 09/02/20 09/02/20 09/02/20 09/02/20 12:45 12:47 13:00 13:02 Temp 99.3 99.3 99.3 99.3 Pulse 82 79 82 81 Resp B/P (MAP) 113/70 (84) 111/65 (80) Pulse Ox 96 96 96 95 Intake and Output 09/02/20 06:00 Intake Total 687 ml Output Total 1600 ml Balance -913 ml VTE VTE Risk Total Score: 2 VTE Risk Score VTE Risk: Score 0-1 = Low Risk (Aggressive mobilization; early ambulation; no VTE prophylaxis required) Score 2: Moderate Risk (Intermittent/Pneumatic Compression Device OR Lovenox/Heparin/Coumadin) Score 3-4: High Risk (Intermittent/Pneumatic Compression Device AND Lovenox/Heparin/Coumadin) Score > or =5: Highest Risk (Intermittent/Pneumatic Compression Device AND Lovenox/Heparin/Coumadin) VTE VTE Present on Admission: No Currently receiving anticoagul: No VTE Risk Total Score: 2 Assessment/Plan Assessment/Plan Assessment/Plan 54yo admitted with COVID hypoxic failure 1. decrease fio2 to 90% 2. cont sedation 3. PRN paralytic 4. ceftriaxone/azithro for now 5. dexamethasone 6. DVT/GI Proph CC time > 60 reviewing case d/w hospitalist and RN. Video assessment performed using HIPAA compliant technology. Patient History: Unknown 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 ARJUN MCFADDEN MD Sep 02, 2020 13:49
--- NOTE | 2020-09-02 14:39 | DIET.OP ---
Nutrition Asmt/Malnutrit 2-17 Actual Date of Review: Sep 02, 2020 Nutritional Screening: vent/TF Diagnosis: COVID 19, resp distress Pertinent Medical Hx/Surgical: HTN Subjective Information: Telehealth consult - pt intubated and sedation. Propofol at 30 mcg/kg/min providing 441 kcal. Jevity 1.0 running at 20 mls/hr, pt tolerating well. Current Diet Order/Nutrition S: EN Pertinent Meds Current Medications Medications (Trade) Dose Ordered Sig/Estuardo PRN Reason Start Time Stop Time Status Last Admin Albuterol Sulfate (Ventolin) 2.5 mg RTQ4 PRN WHEEZING 08/31/20 08:00 09/30/20 07:59 Albuterol/ Ipratropium (Duo 0.5-3(2.5) Mg/3 ml) 3 ml RTQ6H 08/31/20 08:00 09/30/20 07:59 09/02/20 09:06 Ascorbic Acid (Vitamin C) 500 mg BID 08/31/20 21:00 09/30/20 20:59 09/02/20 08:03 Aspirin (Aspirin) 81 mg DAILY 09/01/20 09:00 10/01/20 08:59 09/02/20 08:03 Azithromycin 500 mg/Sodium Chloride 250 ml @ 175 mls/hr Q24HRS 08/31/20 05:00 09/04/20 08:00 09/02/20 04:56 Ceftriaxone Sodium 1000 mg/ Sodium Chloride 100 ml @ 100 mls/hr Q24HRS 08/31/20 05:00 09/30/20 04:59 09/02/20 04:56 Dexmedetomidine HCl 400 mcg/ Sodium Chloride 100 ml @ 0 mls/hr IV 09/01/20 08:30 10/01/20 08:29 09/02/20 13:29 Enoxaparin Sodium (Lovenox) 40 mg DAILY 08/31/20 09:00 09/30/20 08:59 09/02/20 08:04 Famotidine (Pepcid) 20 mg BID 09/02/20 09:00 10/02/20 08:59 09/02/20 08:03 Fentanyl Citrate 1000 mcg/Sodium Chloride 100 ml @ 0 mls/hr IV 09/01/20 11:30 10/01/20 11:29 09/01/20 18:51 Propofol (Diprivan) Diprivan IV infusion tritra... TITRATE PRN sedation 09/01/20 10:30 10/01/20 10:29 09/02/20 11:38 Remdesivir 100 mg/ Sodium Chloride 120 ml @ 111.111 mls/hr Q24HRS 09/01/20 09:00 10/01/20 08:59 09/02/20 08:04 Vecuronium [place] (Norcuron) 2 mg Q30MIN PRN paralysis 09/01/20 11:00 10/01/20 10:59 09/02/20 02:20 Vecuronium [place] (Norcuron) 5 mg Q1HR 09/01/20 11:00 10/01/20 10:59 09/02/20 10:35 Zinc Sulfate (Zinc Sulfate) 220 mg DAILY 08/31/20 21:00 09/30/20 20:59 09/02/20 08:03 Pertinent Labs Laboratory Tests Test 09/01/20 04:40 09/01/20 08:30 09/01/20 08:40 09/01/20 08:50 White Blood Count 20.4 10^3/uL Red Blood Count 5.40 10^6/uL Hemoglobin 17.3 g/dL Hematocrit 48.5 % Mean Corpuscular Volume 89.8 fL Mean Corpuscular Hemoglobin 32.0 pg Mean Corpuscular Hemoglobin Concent 35.7 g/dL Red Cell Distribution Width 12.7 % Platelet Count 216 10^3/uL Mean Platelet Volume 9.5 fL Sodium Level 141 mmol/L Potassium Level 4.3 mmol/L Chloride Level 105.0 mmol/L Carbon Dioxide Level 24.8 mmol/L Anion Gap 15.5 Blood Urea Nitrogen 30 mg/dL Creatinine 1.15 mg/dL Estimated GFR () 79.9 Est GFR (CKD-EPI)(Non-Afr [place]ic) 66.0 BUN/Creatinine Ratio 26.0 Glucose Level 119 mg/dL Calcium Level 8.5 mg/dL Phosphorus Level 4.1 mg/dL Magnesium Level 3.0 mg/dL Total Bilirubin 1.1 mg/dL Aspartate Amino Transf (AST/SGOT) 56 U/L Alanine Aminotransferase (ALT/SGPT) 56 U/L Alkaline Phosphatase 84 U/L Total Protein 7.0 g/dL Albumin 2.4 g/dL Globulin 4.6 Albumin/Globulin Ratio 0.521 Blood Gas Sample Site RT RADIAL ARTERY Blood Gas pH 7.391 Blood Gas PCO2 39.3 mmHg Blood Gas PO2 58.3 mmHg Blood Gas HCO3 23.3 mmol/L Blood Gas Base Excess -1.3 mmol/L Vince Test N/A Arterial Blood Oxygen Saturation 90.2 % Deoxyhemoglobin 9.8 % Carboxyhemoglobin 0.3 % Methemoglobin 0.1 % Total Hemoglobin 18.2 % Total Oxygen Concentration 22.9 % Blood Gas Temperature 37.0 Oxygen Delivery Method (LAB) bipap Blood Gas Vent Mode avaps FiO2 100 % Total Carbon Dioxide 24.5 mmol/L Urine Collection Type CATH Urine Color YELLOW Urine Appearance CLEAR Urine Bilirubin NEGATIVE MG/DL Urine Ketones NEGATIVE Urine Specific [place] 1.030 Urine pH 5.5 Urine Protein 100 mg/dL Urine Urobilinogen NEGATIVE Urine Nitrate NEGATIVE Urine Leukocyte Esterase NEGATIVE Urine Blood MODERATE Urine RBC 0-2 RBC/HPF Urine WBC 2-5 WBC/HPF Urine Squamous Epithelial Cells NONE SEEN #/HPF Urine Bacteria RARE Urine Glucose NORMAL Prothrombin Time 13.4 SEC Prothrombin Time INR (Non-Therap) 1.3 Fibrinogen 247 mg/dL Test 09/01/20 12:31 09/01/20 18:10 09/02/20 04:15 09/02/20 05:35 Blood Gas Sample Site RT RADIAL ARTERY RT RADIAL ARTERY Blood Gas pH 7.391 7.395 Blood Gas PCO2 44.9 mmHg 41.9 mmHg Blood Gas PO2 71.7 mmHg 154.5 mmHg Blood Gas HCO3 26.6 mmol/L 25.1 mmol/L Blood Gas Base Excess 1.2 mmol/L 0.1 mmol/L Vince Test POSITIVE POSITIVE Arterial Blood Oxygen Saturation 93.2 % 98.8 % Deoxyhemoglobin 6.7 % 1.2 % Carboxyhemoglobin 0.8 % 0.3 % Methemoglobin 0.6 % 0.3 % Total Hemoglobin 16.9 % 16.8 % Total Oxygen Concentration 21.8 % 23.4 % Blood Gas Temperature 37 37 Oxygen Delivery Method (LAB) VENT VETN Blood Gas Vent Mode AC VC A/C Blood Gas Vent Rate 20 22 FiO2 100 % 100 % Blood Gas Tidal Volume 450 ML 450 ML Blood Gas PEEP 16 CMH2O 16 CMH2O Total Carbon Dioxide 28.0 mmol/L 26.4 mmol/L White Blood Count 14.3 10^3/uL Red Blood Count 5.09 10^6/uL Hemoglobin 16.3 g/dL Hematocrit 46.3 % Mean Corpuscular Volume 91.0 fL Mean Corpuscular Hemoglobin 32.0 pg Mean Corpuscular Hemoglobin Concent 35.2 g/dL Red Cell Distribution Width 13.1 % Platelet Count 202 10^3/uL Mean Platelet Volume 9.8 fL Neutrophils (%) (Auto) 87.5 % Lymphocytes (%) (Auto) 6.4 % Monocytes (%) (Auto) 4.0 % Neutrophils # (Auto) 12.5 10^3/uL Lymphocytes # (Auto) 0.92 10^3/uL1 Monocytes # (Auto) 0.6 10^3/uL Absolute Immature Granulocyte (auto 0.29 10^3 u/L Absolute Eosinophils (auto) 0.0 10^3/uL Immature Granulocytes % 2.00 % Eosinophils % 0.0 % Basophils % 0.1 % Basophils # 0.0 10^3/uL D-Dimer 0.58 mg/L Sodium Level 141 mmol/L Potassium Level 4.1 mmol/L Chloride Level 106.0 mmol/L Carbon Dioxide Level 26.4 mmol/L Anion Gap 12.7 Blood Urea Nitrogen 31 mg/dL Creatinine 0.96 mg/dL Estimated GFR () 98.4 Est GFR (CKD-EPI)(Non-Afr [place]ic) 81.3 BUN/Creatinine Ratio 32.0 Glucose Level 222 mg/dL Calcium Level 8.4 mg/dL Phosphorus Level 3.0 mg/dL Magnesium Level 3.1 mg/dL Ferritin 3104 ng/mL Total Bilirubin 0.7 mg/dL Aspartate Amino Transf (AST/SGOT) 39 U/L Alanine Aminotransferase (ALT/SGPT) 52 U/L Alkaline Phosphatase 73 U/L Lactate Dehydrogenase 587 U/L Total Creatine Kinase 323 U/L C-Reactive Protein 18.05 mg/dL Total Protein 6.4 g/dL Albumin 2.3 g/dL Globulin 4.1 Albumin/Globulin Ratio 0.560 Procalcitonin 0.78 ng/mL Segmented Neutrophils 93 % Lymphocytes 2 % Monocytes 5 % Platelet Estimate ADEQUATE Platelet Morphology NORMAL Test 09/02/20 07:18 Blood Gas Sample Site RT RADIAL ARTERY Blood Gas pH 7.409 Blood Gas PCO2 40.2 mmHg Blood Gas PO2 103.5 mmHg Blood Gas HCO3 24.9 mmol/L Blood Gas Base Excess 0.3 mmol/L Vince Test POSITIVE Arterial Blood Oxygen Saturation 98.0 % Deoxyhemoglobin 2.0 % Carboxyhemoglobin 0.5 % Methemoglobin 0.4 % Total Hemoglobin 16.1 % Total Oxygen Concentration 22.1 % Blood Gas Temperature 37 Oxygen Delivery Method (LAB) VENT Blood Gas Vent Mode AC VC Blood Gas Vent Rate 22 FiO2 100 % Blood Gas Tidal Volume 450 ML Blood Gas PEEP 16 CMH2O Total Carbon Dioxide 26.1 mmol/L Height (Feet): 5 Height (Inches): 7 Current Weight: 204 Weight Status: Obese GI Comments fluid balance is neg 1,673 mls. Food Allergies: No BEE in Kcals: Use Current Weight Calories/Kcals/Kg: Herminio St Eq for vent Kcals Calculated: 2048 kcal Protein: Use Current Weight Protein g/k.8-1 Protein Calculated: 74-93g Fluid: ml: 2048 ml (1ml/kcal) Nutritional Problem: Nutr. Problems Present Problems: Inadequate enteral nurition infusion Etiology: curent rate of 20 mls/hr Signs/Symptoms: jevity 1.0 @ 20 ml/hr currently providing 480 kcal, meeting 23% of energy needs. RD Comments: 1. Recommend increasing Jevity 1.0 by 10 cc every 6 hrs until goal rate of 65 mls hr is met. At goal rate this will provide 1560 kcal, 69 g pro, 241 g CHO, 54 g fat, and 1303 ml of water, meeting 100% of the pts estimated nutrition needs in combination with calories from propofol. 2. 130 ml water flushes q 4 hrs. 3. Monitor Mg, K, and PO4 during initiation of enteral feeds. Monitor BG q 6 hrs and correct as necessary. 4. RD to follow and update recommendations based on vent and sedation settings. Expected Outcomes TF increased to goal rate of 65 ml/hr in 36-48 hrs. discharge goal is pending. Malnutrtion/Nutrition Risk Edu: No MD Notificiation Needed?: No Brittany Coleman Sep 02, 2020 14:39
[2020-09-02] MEDS: SUBLIMAZE 1,000 MCG in NS 100ML 80 ML IV SCH (17:15)
[2020-09-03] VITALS (54 sets, daily range): BP systolic 93–152; BP diastolic 58–119
[2020-09-03] MEDS: DUO 0.5-3(2.5) MG/3 ML IH SCH ×3 (04:04→22:07)
[2020-09-03] MEDS: ZITHROMAX 500 MG in NS 250ML 250 ML IV SCH (04:06)
[2020-09-03] MEDS: ROCEPHIN 1,000 MG in NS 100ML 100 ML IV SCH (04:06)
[2020-09-03] MEDS: DIPRIVAN IV PRN ×3 (04:49→20:02)
[2020-09-03 06:00] LABS: BASOPHIL % 0.1 % (0.0-0.2); LYMPHOCYTES % 3.3 % (24.0-44.0); MEAN CORP HGB 31.7 pg (26-34); MONOCYTES # 0.9 10^3/uL (0.3-0.8); NEUTROPHIL # 16.3 10^3/uL (1.8-7.7); NEUTROPHILS % 90.7 % (41.0-85.0); PLATELET COUNT 198 10^3/uL (150-400)
[2020-09-03 06:44] LABS: CALCIUM 8.1 mg/dL (8.4-10.5); CARBON DIOXIDE 26.3 mmol/L (20.0-32)
[2020-09-03 08:07] LABS: LYMPHOCYTE 3 % (25-36); MONOCYTE 6 % (3-9); SEGMENTED NEUTROPHILS 91 % (31-76)
[2020-09-03] MEDS: ASPIRIN PO SCH (09:00)
[2020-09-03] MEDS: ZINC SULFATE PO SCH (09:00)
[2020-09-03] MEDS: PEPCID IV SCH ×2 (09:00→20:02)
[2020-09-03] MEDS: DEXAMETHASONE 10 MG/ML VIAL IV SCH (09:00)
[2020-09-03] MEDS: VITAMIN C PO SCH ×2 (09:00→20:02)
[2020-09-03 09:24] LABS: ABG PCO2 42.8 mmHg (35.0-45.0); ABG PH 7.428 (7.350-7.450); BE(B) 2.9 mmol/L (-2.0-2.0); HCO3act 27.6 mmol/L (22.0-26.0); pO2 81.1 mmHg (80.0-100.0)
[2020-09-03] MEDS: LOVENOX SQ SCH (10:00)
[2020-09-03] MEDS: REMDESIVIR (EUA) 100 MG in NS 100ML 100 ML IV SCH (11:00)
--- NOTE | 2020-09-03 13:12 | TELE.CONS ---
Consultation Reason for Consult: Reason for Consultation: Covid PNA History of Present Illness History of Patient Comments The pt remains intubated and sedated. Review of Systems ENT: Other Allergies: Coded Allergies: Sulfa (Sulfonamide Antibiotics) (Verified Allergy, Mild, 08/31/20) Scheduled Atorvastatin 10MG (Lipitor 10MG), 1 TAB PO HS, (Reported) Bisoprolol Fumarate/Hctz (Bisoprolol-Hctz 5-6.25 Mg Tab), 1 TAB PO DAILY, (Reported) Temazepam (Restoril), 1 CAP PO HS, (Reported) VITALS REVIEW VITALS Vital Sign - Last 24 Hours 08/31/20 08/31/20 08/31/20 08/31/20 00:59 00:59 00:59 01:31 Temp 99.3 99.1 99.1 99.1 Pulse 96 96 96 89 Resp 22 22 22 22 B/P (MAP) 154/64 (94) 133/78 (96) Pulse Ox 85 85 85 O2 Delivery Non-Rebreather Non-Rebreather O2 Flow Rate 15.00 15.00 08/31/20 08/31/20 08/31/20 08/31/20 02:09 03:00 03:05 03:25 Temp 99.2 99.2 99.6 Pulse 85 86 102 Resp 23 22 22 B/P (MAP) 130/82 (98) 135/75 (95) 159/87 (111) Pulse Ox 90 91 90 O2 Delivery Non-Rebreather Bi-pap Non-Rebreather Non-Rebreather O2 Flow Rate 15.00 100.00 15.00 15.00 08/31/20 08/31/20 08/31/20 08/31/20 04:27 04:48 04:56 06:14 Temp 99.3 Pulse 92 114 85 Resp 30 42 22 B/P (MAP) 136/82 (100) Pulse Ox 86 88 90 O2 Delivery Comfort Ryne S/T Non-Rebreather S/T O2 Flow Rate 60.00 15.00 FiO2 100 100 100 08/31/20 08/31/20 08/31/20 08/31/20 08:08 08:30 08:54 08:54 Pulse 111 114 Resp 39 44 B/P (MAP) 141/91 Pulse Ox 91 91 O2 Delivery Bi-pap 11/2008/31/20 08/31/20 08/31/20 08:57 08:57 09:03 11:27 Temp 100.0 Pulse 119 110 103 104 Resp 44 45 60 36 B/P (MAP) 141/91 (108) Pulse Ox 90 87 89 94 O2 Delivery CPAP CPAP FiO2 100 100 08/31/20 08/31/20 08/31/20 08/31/20 11:49 14:30 15:23 15:45 Temp 98.5 Pulse 111 92 91 Resp 58 49 49 B/P (MAP) 119/85 (96) Pulse Ox 89 90 90 O2 Delivery CPAP FiO2 100 08/31/20 08/31/20 08/31/20 08/31/20 15:52 16:00 16:00 16:30 Temp 97.3 98.0 Pulse 93 85 92 Resp 44 55 40 B/P (MAP) 145/95 (112) 128/78 (95) Pulse Ox 89 91 91 O2 Delivery Bi-pap 08/31/20 08/31/20 08/31/20 08/31/20 16:34 16:45 16:49 17:00 Pulse 86 86 98 89 Resp 62 34 42 B/P (MAP) 127/82 (97) Pulse Ox 90 89 88 93 08/31/20 08/31/20 08/31/20 08/31/20 17:01 17:02 17:02 17:04 Pulse 93 99 101 87 Resp 39 39 38 37 B/P (MAP) 128/78 (95) Pulse Ox 92 91 91 90 O2 Delivery CPAP FiO2 100 08/31/20 08/31/20 08/31/20 08/31/20 17:15 17:19 17:30 17:34 Pulse 83 89 91 88 Resp 78 34 32 B/P (MAP) 136/109 (118) 134/78 (96) Pulse Ox 90 87 89 88 08/31/20 08/31/20 08/31/20 08/31/20 17:45 17:49 18:00 18:02 Pulse 89 87 89 92 Resp 69 54 47 B/P (MAP) 134/91 (105) Pulse Ox 86 89 88 89 O2 Delivery CPAP FiO2 100 08/31/20 08/31/20 08/31/20 08/31/20 18:04 18:15 18:19 19:34 Pulse 84 86 77 82 Resp 43 26 39 49 B/P (MAP) 138/68 (91) 125/58 (80) 117/74 (88) Pulse Ox 88 91 90 93 08/31/20 08/31/20 08/31/20 08/31/20 19:45 19:49 20:00 20:00 Pulse 74 69 97 Resp 41 42 57 B/P (MAP) 118/69 (85) Pulse Ox 94 92 86 O2 Delivery C-Pap 08/31/20 08/31/20 08/31/20 08/31/20 20:04 20:15 20:19 20:30 Pulse 87 71 81 81 Resp 37 28 41 B/P (MAP) 121/77 (92) 124/69 (87) Pulse Ox 88 93 91 91 08/31/20 08/31/20 08/31/20 08/31/20 20:34 20:45 20:49 20:50 Temp 97.0 Pulse 78 76 84 Resp 43 48 B/P (MAP) 124/69 (87) 115/79 (91) Pulse Ox 90 93 91 08/31/20 08/31/20 08/31/20 08/31/20 21:00 21:04 21:15 21:19 Pulse 82 88 86 86 Resp 47 57 26 40 B/P (MAP) 126/84 (98) 138/72 (94) Pulse Ox 91 87 89 87 08/31/20 08/31/20 08/31/20 08/31/20 21:30 21:34 21:45 21:45 Pulse 99 92 88 98 Resp 42 33 83 B/P (MAP) 142/85 (104) Pulse Ox 88 89 91 89 O2 Delivery CPAP FiO2 100 08/31/20 08/31/20 08/31/20 09/01/20 22:44 22:46 22:46 00:00 Temp 98.4 Pulse 88 88 88 Resp 33 33 33 Pulse Ox 90 90 91 09/01/20 09/01/20 09/01/20 09/01/20 00:00 00:30 04:00 04:00 Temp 98.1 Pulse 83 Resp 41 Pulse Ox 92 O2 Delivery C-Pap CPAP C-Pap FiO2 100 09/01/20 09/01/20 09/01/20 09/01/20 04:00 04:09 04:15 04:23 Pulse 73 94 86 76 Resp 43 36 27 50 B/P (MAP) 133/71 (91) 104/49 (67) Pulse Ox 92 83 89 91 09/01/20 09/01/20 09/01/20 09/01/20 04:30 04:39 04:45 04:54 Pulse 82 96 94 Resp 42 48 B/P (MAP) 131/87 (102) 105/43 (63) Pulse Ox 91 82 86 85 09/01/20 09/01/20 09/01/20 09/01/20 05:00 05:00 05:08 05:15 Pulse 84 103 110 99 Resp 40 47 73 46 B/P (MAP) 120/75 (90) Pulse Ox 93 85 83 90 O2 Delivery CPAP FiO2 100 09/01/20 09/01/20 09/01/20 09/01/20 05:23 05:30 05:38 05:45 Pulse 102 88 94 88 Resp 28 33 47 B/P (MAP) 110/66 (81) 118/71 (87) Pulse Ox 79 82 88 91 09/01/20 09/01/20 09/01/20 09/01/20 05:53 07:15 09:36 09:36 Pulse 98 111 107 Resp 45 45 B/P (MAP) 116/76 (89) Pulse Ox 87 91 90 O2 Delivery C-Pap 09/01/20 09/01/20 09/01/20 09/01/20 09:37 10:47 11:00 11:48 Pulse 111 76 76 Resp 51 22 22 Pulse Ox 91 91 91 O2 Delivery CPAP Mechanical Ventilator FiO2 100 100 100 09/01/20 09/01/20 09/01/20 09/01/20 14:50 14:50 14:50 14:54 Pulse 74 74 76 74 Resp 22 22 22 22 Pulse Ox 94 94 91 94 FiO2 100 09/01/20 09/01/20 09/01/20 09/01/20 15:00 15:48 15:58 16:00 Pulse 102 73 75 Resp 25 24 B/P (MAP) 107/69 (82) Pulse Ox 91 95 95 O2 Delivery Mechanical Ventilator 09/01/20 09/01/20 09/01/20 09/01/20 16:01 16:04 16:07 16:10 Pulse 77 75 78 73 Resp 23 23 24 22 B/P (MAP) 104/66 (79) 102/63 (76) 104/58 (73) 102/62 (75) Pulse Ox 95 95 95 95 09/01/20 09/01/20 09/01/20 09/01/20 16:13 16:15 16:16 16:19 Pulse 72 77 77 77 Resp 21 23 23 22 B/P (MAP) 101/62 (75) 107/61 (76) 100/61 (74) Pulse Ox 95 95 95 96 09/01/20 09/01/20 09/01/20 09/01/20 16:22 16:25 16:28 16:30 Pulse 78 76 77 78 Resp 23 24 23 23 B/P (MAP) 100/60 (73) 105/61 (76) 101/65 (77) Pulse Ox 95 95 95 95 09/01/20 09/01/20 09/01/20 09/01/20 16:31 16:34 16:37 16:56 Pulse 77 77 79 73 Resp 24 24 23 22 B/P (MAP) 102/61 (75) 101/64 (76) 98/62 (74) Pulse Ox 95 96 95 93 FiO2 100 09/01/20 09/01/20 09/01/20 09/01/20 19:13 19:15 19:16 19:19 Pulse 67 79 81 73 Resp 22 24 25 B/P (MAP) 106/72 (83) 112/67 (82) 105/60 (75) Pulse Ox 96 85 91 92 09/01/20 09/01/20 09/01/20 09/01/20 19:22 19:25 19:28 19:30 Pulse 74 71 73 73 Resp 24 23 23 24 B/P (MAP) 105/60 (75) 106/61 (76) 106/62 (77) Pulse Ox 91 91 91 92 09/01/20 09/01/20 09/01/20 09/01/20 19:31 19:34 19:37 19:40 Pulse 72 72 72 71 Resp 23 23 23 23 B/P (MAP) 106/62 (77) 107/64 (78) 102/60 (74) 105/61 (76) Pulse Ox 92 92 92 92 09/01/20 09/01/20 09/01/20 09/01/20 19:43 19:45 19:46 19:49 Pulse 72 71 71 72 Resp 22 23 24 24 B/P (MAP) 108/59 (75) 107/61 (76) 106/61 (76) Pulse Ox 92 92 92 92 09/01/20 09/01/20 09/01/20 09/01/20 19:52 19:55 19:58 20:00 Pulse 72 72 73 72 Resp 23 23 23 26 B/P (MAP) 104/64 (77) 104/63 (77) 100/62 (75) Pulse Ox 92 92 91 92 FiO2 100 09/01/20 09/01/20 09/01/20 09/01/20 20:00 20:13 20:15 20:16 Pulse 72 73 73 Resp 23 23 23 B/P (MAP) 105/61 (76) 106/63 (77) Pulse Ox 90 90 90 O2 Delivery Mechanical Ventilator 09/01/20 09/01/20 09/01/20 09/01/20 20:19 20:22 20:25 20:28 Pulse 73 72 73 72 Resp 23 23 B/P (MAP) 105/63 (77) 104/62 (76) 106/61 (76) 102/62 (75) Pulse Ox 90 91 90 91 09/01/20 09/01/20 09/01/20 09/01/20 20:30 20:31 20:34 20:37 Pulse 71 72 69 73 Resp 23 23 22 22 B/P (MAP) 107/66 (80) 103/55 (71) 99/57 (71) Pulse Ox 91 91 90 90 09/01/20 09/01/20 09/01/20 09/01/20 20:40 20:43 20:45 20:46 Pulse 71 70 77 72 Resp 22 22 22 22 B/P (MAP) 105/61 (76) 103/62 (76) 111/64 (80) Pulse Ox 90 90 91 92 09/01/20 09/01/20 09/01/20 09/01/20 20:49 20:52 20:55 20:58 Pulse 73 73 67 74 Resp 22 22 22 23 B/P (MAP) 104/61 (75) 108/62 (77) 111/63 (79) 108/63 (78) Pulse Ox 92 92 93 92 09/01/20 09/01/20 09/01/20 09/01/20 21:10 21:11 21:12 21:12 Pulse 74 74 74 74 Resp 22 22 22 22 Pulse Ox 91 91 91 91 FiO2 100 09/01/20 09/01/20 09/01/20 09/01/20 21:46 21:49 21:52 21:55 Pulse 80 80 79 79 Resp 22 22 22 22 B/P (MAP) 106/62 (77) 110/63 (79) 109/63 (78) 110/58 (75) Pulse Ox 91 92 91 91 09/01/20 09/01/20 09/01/20 09/01/20 21:58 22:00 22:01 22:04 Pulse 79 78 80 80 Resp 22 22 22 23 B/P (MAP) 108/59 (75) 108/64 (79) 106/60 (75) Pulse Ox 92 92 92 92 09/01/20 09/01/20 09/01/20 09/01/20 22:07 22:10 22:13 22:15 Pulse 81 79 77 80 Resp 25 24 24 23 B/P (MAP) 107/61 (76) 107/63 (78) 110/65 (80) Pulse Ox 92 92 92 92 09/01/20 09/01/20 09/01/20 09/01/20 22:16 22:19 22:22 22:25 Pulse 79 80 80 77 Resp 24 25 24 25 B/P (MAP) 106/60 (75) 111/61 (78) 109/62 (78) 109/61 (77) Pulse Ox 92 92 92 92 09/01/20 09/01/20 09/01/20 09/01/20 22:28 22:30 22:31 22:34 Pulse 77 80 78 78 Resp 24 24 24 23 B/P (MAP) 110/67 (81) 106/63 (77) 110/63 (79) Pulse Ox 92 92 92 92 09/01/20 09/01/20 09/01/20 09/01/20 23:10 23:30 23:31 23:34 Pulse 76 77 74 76 Resp 22 22 23 26 B/P (MAP) 113/62 (79) 107/62 (77) Pulse Ox 92 92 92 92 FiO2 100 09/01/20 09/01/20 09/01/20 09/01/20 23:37 23:40 23:43 23:45 Pulse 76 76 73 75 Resp 26 26 26 27 B/P (MAP) 109/61 (77) 109/58 (75) 112/62 (79) Pulse Ox 92 93 93 93 09/01/20 09/01/20 09/01/20 09/01/20 23:46 23:49 23:52 23:55 Pulse 74 74 83 72 Resp B/P (MAP) 112/59 (76) 113/66 (82) 116/67 (83) 117/66 (83) Pulse Ox 93 93 94 93 09/01/20 09/02/20 09/02/20 09/02/20 23:58 00:00 00:00 00:13 Pulse 78 80 75 Resp B/P (MAP) 118/65 (82) 114/66 (82) Pulse Ox 93 93 93 O2 Delivery Mechanical Ventilator FiO2 100 09/02/20 09/02/20 09/02/20 09/02/20 00:15 00:16 00:19 00:22 Pulse 76 77 75 75 Resp B/P (MAP) 118/65 (82) 114/67 (83) 119/63 (81) Pulse Ox 93 93 92 93 09/02/20 09/02/20 09/02/20 09/02/20 00:25 00:28 00:30 00:31 Pulse 76 75 76 77 Resp B/P (MAP) 117/68 (84) 115/65 (82) 115/64 (81) Pulse Ox 93 92 92 92 09/02/20 09/02/20 09/02/20 09/02/20 00:34 00:37 00:40 00:43 Pulse 77 80 79 80 Resp B/P (MAP) 112/62 (79) 110/63 (79) 110/63 (79) 107/64 (78) Pulse Ox 93 92 92 92 09/02/20 09/02/20 09/02/20 09/02/20 00:45 00:46 00:49 00:52 Pulse 82 81 79 80 Resp B/P (MAP) 108/63 (78) 109/61 (77) 107/67 (80) Pulse Ox 92 92 92 93 09/02/20 09/02/20 09/02/20 09/02/20 00:55 00:58 01:13 01:15 Pulse 80 77 80 73 Resp 24 25 35 22 B/P (MAP) 109/65 (80) 109/63 (78) 114/60 (78) Pulse Ox 92 93 88 91 09/02/20 09/02/20 09/02/20 09/02/20 01:16 01:19 01:22 01:25 Pulse 76 77 75 74 Resp 22 B/P (MAP) 107/64 (78) 108/59 (75) 110/63 (79) 109/62 (78) Pulse Ox 92 92 92 93 09/02/20 09/02/20 09/02/20 09/02/20 01:28 01:30 01:31 01:34 Pulse 73 73 75 77 Resp B/P (MAP) 110/61 (77) 109/63 (78) 107/61 (76) Pulse Ox 92 92 92 93 09/02/20 09/02/20 09/02/20 09/02/20 01:37 01:40 01:43 01:45 Pulse 76 76 75 74 Resp 22 B/P (MAP) 105/64 (78) 105/62 (76) 104/63 (77) Pulse Ox 93 92 92 92 09/02/20 09/02/20 09/02/20 09/02/20 01:46 01:49 01:52 01:55 Pulse 75 77 79 75 Resp B/P (MAP) 113/62 (79) 108/64 (79) 107/61 (76) 107/62 (77) Pulse Ox 92 93 93 93 09/02/20 09/02/20 09/02/20 09/02/20 01:58 02:20 02:25 02:28 Pulse 76 79 74 71 Resp 22 B/P (MAP) 110/61 (77) 104/61 (75) 104/59 (74) Pulse Ox 92 93 93 93 FiO2 100 09/02/20 09/02/20 09/02/20 09/02/20 02:30 02:31 02:34 02:37 Pulse 73 70 69 70 Resp 22 B/P (MAP) 104/59 (74) 103/60 (74) 102/58 (73) Pulse Ox 93 93 93 93 09/02/20 09/02/20 09/02/20 09/02/20 02:40 02:43 02:45 02:46 Pulse 70 73 73 71 Resp B/P (MAP) 105/60 (75) 103/59 (74) 102/60 (74) Pulse Ox 93 93 93 93 09/02/20 09/02/20 09/02/20 09/02/20 02:49 02:52 02:55 02:58 Pulse 72 74 75 72 Resp B/P (MAP) 105/60 (75) 101/59 (73) 102/56 (71) 103/55 (71) Pulse Ox 93 93 93 93 09/02/20 09/02/20 09/02/20 09/02/20 03:00 03:01 03:04 03:07 Pulse 73 71 69 70 Resp B/P (MAP) 102/58 (73) 100/57 (71) 99/57 (71) Pulse Ox 93 93 93 93 09/02/20 09/02/20 09/02/20 09/02/20 03:10 03:13 03:22 03:25 Pulse 70 71 71 69 Resp B/P (MAP) 99/59 (72) 102/56 (71) 100/60 (73) 102/60 (74) Pulse Ox 93 93 93 93 09/02/20 09/02/20 09/02/20 09/02/20 03:28 03:29 03:31 03:34 Pulse 69 71 70 69 Resp B/P (MAP) 102/58 (73) 103/56 (72) 101/60 (74) Pulse Ox 93 93 93 93 09/02/20 09/02/20 09/02/20 09/02/20 03:37 03:40 03:43 03:44 Pulse 71 69 72 70 Resp B/P (MAP) 105/61 (76) 105/54 (71) 102/58 (73) Pulse Ox 93 93 93 92 09/02/20 09/02/20 09/02/20 09/02/20 03:46 03:49 03:52 03:55 Pulse 69 71 74 75 Resp B/P (MAP) 104/59 (74) 101/56 (71) 104/58 (73) 102/59 (73) Pulse Ox 93 93 93 93 09/02/20 09/02/20 09/02/20 09/02/20 03:58 03:59 04:00 04:00 Pulse 72 76 80 Resp B/P (MAP) 104/56 (72) Pulse Ox 92 93 93 O2 Delivery Mechanical Ventilator FiO2 100 09/02/20 09/02/20 09/02/20 09/02/20 04:01 04:04 04:04 04:08 Pulse 75 87 Resp 22 22 B/P (MAP) 103/61 (75) 107/56 (73) 107/56 (73) Pulse Ox 92 90 90 94 09/02/20 09/02/20 09/02/20 09/02/20 04:08 04:09 04:09 04:22 Temp 98.8 Pulse 87 Resp B/P (MAP) 123/65 (84) Pulse Ox 94 92 92 09/02/20 09/02/20 09/02/20 09/02/20 04:24 04:28 04:30 04:31 Temp 98.8 98.6 98.6 98.6 Pulse 123 120 126 115 Resp B/P (MAP) 128/73 (91) 121/77 (92) 129/70 (89) Pulse Ox 97 98 98 98 09/02/20 09/02/20 09/02/20 09/02/20 04:34 04:37 04:40 04:43 Temp 98.6 98.6 98.6 98.6 Pulse 114 105 97 94 Resp B/P (MAP) 127/83 (98) 127/82 (97) 118/63 (81) 115/64 (81) Pulse Ox 97 98 97 97 09/02/20 09/02/20 09/02/20 09/02/20 04:45 04:46 04:49 04:49 Temp 98.6 98.6 98.6 Pulse 94 92 87 118 Resp B/P (MAP) 118/72 (87) 139/87 (104) Pulse Ox 97 96 94 98 FiO2 100 09/02/20 09/02/20 09/02/20 09/02/20 04:52 04:55 04:58 05:07 Temp 98.6 98.6 98.6 98.6 Pulse 122 116 104 90 Resp 34 36 32 28 B/P (MAP) 144/95 (111) 130/74 (92) 123/66 (85) 113/67 (82) Pulse Ox 98 98 98 97 09/02/20 09/02/20 09/02/20 09/02/20 05:10 05:13 05:15 05:16 Temp 98.6 98.6 98.6 98.6 Pulse 105 99 122 104 Resp B/P (MAP) 130/76 (94) 129/77 (94) 129/72 (91) Pulse Ox 97 97 98 97 09/02/20 09/02/20 09/02/20 09/02/20 05:19 05:22 05:25 05:28 Temp 98.6 98.6 98.6 98.6 Pulse 104 112 113 95 Resp B/P (MAP) 125/74 (91) 140/95 (110) 136/70 (92) 119/62 (81) Pulse Ox 98 98 98 97 09/02/20 09/02/20 09/02/20 09/02/20 05:30 05:31 05:34 05:37 Temp 98.6 98.6 98.6 98.6 Pulse 93 91 92 93 Resp B/P (MAP) 113/65 (81) 113/62 (79) 118/66 (83) Pulse Ox 97 97 97 97 09/02/20 09/02/20 09/02/20 09/02/20 05:40 05:43 05:45 05:46 Temp 98.6 98.6 98.6 98.6 Pulse 105 103 96 95 Resp B/P (MAP) 125/74 (91) 136/83 (100) 116/66 (83) Pulse Ox 98 98 98 98 09/02/20 09/02/20 09/02/20 09/02/20 05:49 05:52 07:00 07:00 Temp 98.6 98.6 Pulse 90 91 80 Resp B/P (MAP) 116/64 (81) 111/57 (75) Pulse Ox 97 97 93 O2 Delivery Mechanical Ventilator FiO2 100 09/02/20 09/02/20 09/02/20 09/02/20 07:21 07:21 07:28 07:30 Temp 99.0 99.0 Pulse 98 98 83 87 Resp B/P (MAP) 112/65 (81) Pulse Ox 97 97 97 97 FiO2 100 09/02/20 09/02/20 09/02/20 09/02/20 07:31 07:34 07:37 07:40 Temp 99.0 99.0 99.0 99.1 Pulse 80 80 80 78 Resp 23 B/P (MAP) 106/60 (75) 108/62 (77) 107/56 (73) 112/65 (81) Pulse Ox 97 97 97 97 09/02/20 09/02/20 09/02/20 09/02/20 07:43 07:45 07:46 07:49 Temp 99.1 99.1 99.1 99.1 Pulse 81 78 85 84 Resp B/P (MAP) 106/58 (74) 108/60 (76) 107/60 (76) Pulse Ox 97 97 97 97 09/02/20 09/02/20 09/02/20 09/02/20 07:52 07:55 07:58 08:00 Temp 99.1 99.1 99.3 99.1 Pulse 83 100 94 87 Resp 34 43 26 45 B/P (MAP) 106/59 (75) 113/71 (85) 107/67 (80) Pulse Ox 97 97 97 97 09/02/20 09/02/20 09/02/20 09/02/20 08:01 08:04 08:07 08:10 Temp 99.1 99.3 99.1 99.1 Pulse 84 84 83 83 Resp 36 36 25 28 B/P (MAP) 105/57 (73) 99/60 (73) 103/62 (76) 101/51 (68) Pulse Ox 97 96 97 96 09/02/20 09/02/20 09/02/20 09/02/20 08:13 08:30 08:31 08:34 Temp 99.1 99.3 99.3 99.3 Pulse 84 84 83 82 Resp 24 B/P (MAP) 102/53 (69) 104/59 (74) 103/56 (72) Pulse Ox 96 96 96 96 09/02/20 09/02/20 09/02/20 09/02/20 08:37 08:40 08:43 08:45 Temp 99.3 99.3 99.3 99.3 Pulse 80 84 84 83 Resp B/P (MAP) 97/54 (68) 103/54 (70) 97/58 (71) Pulse Ox 96 96 96 96 09/02/20 09/02/20 09/02/20 09/02/20 08:46 08:49 08:52 08:55 Temp 99.3 99.3 99.3 99.3 Pulse 82 83 83 84 Resp B/P (MAP) 97/55 (69) 97/55 (69) 100/58 (72) 96/59 (71) Pulse Ox 96 96 96 96 09/02/20 09/02/20 09/02/20 09/02/20 08:58 09:00 09:01 09:04 Temp 99.3 99.3 99.5 99.3 Pulse 83 90 95 98 Resp B/P (MAP) 102/57 (72) 130/76 (94) 133/81 (98) Pulse Ox 96 97 97 97 09/02/20 09/02/20 09/02/20 09/02/20 09:06 09:06 09:07 09:10 Temp 99.3 99.3 Pulse 99 98 99 95 Resp B/P (MAP) 135/76 (95) 136/79 (98) Pulse Ox 97 97 97 98 09/02/20 09/02/20 09/02/20 09/02/20 09:13 09:15 09:15 09:16 Temp 99.3 99.3 99.3 99.3 Pulse 85 102 102 84 Resp B/P (MAP) 145/91 (109) 131/78 (95) Pulse Ox 98 98 98 97 09/02/20 09/02/20 09/02/20 09/02/20 09:16 09:30 09:32 09:45 Temp 99.3 99.1 99.1 99.3 Pulse 84 82 84 80 Resp B/P (MAP) 131/78 (95) 114/63 (80) Pulse Ox 97 97 98 98 11/22/09/02/20 09/02/20 09/02/20 09:47 09:59 10:00 10:02 Temp 99.3 99.3 99.3 Pulse 79 83 81 80 Resp B/P (MAP) 114/62 (79) 110/61 (77) Pulse Ox 98 98 98 98 FiO2 100 09/02/20 09/02/20 09/02/20 09/02/20 10:15 10:15 10:17 10:17 Temp 99.3 99.3 99.3 99.3 Pulse 84 84 83 83 Resp B/P (MAP) 114/61 (78) 114/61 (78) Pulse Ox 97 97 98 98 09/02/20 09/02/20 09/02/20 09/02/20 10:30 10:30 10:32 10:45 Temp 99.3 99.3 99.3 Pulse 84 82 85 Resp B/P (MAP) 111/61 (78) Pulse Ox 97 97 97 FiO2 90 09/02/20 09/02/20 09/02/20 09/02/20 10:47 11:00 11:02 11:15 Temp 99.3 99.3 99.5 99.5 Pulse 84 89 87 91 Resp B/P (MAP) 108/60 (76) 111/61 (78) Pulse Ox 97 97 96 95 09/02/20 09/02/20 09/02/20 09/02/20 11:17 11:26 11:26 11:30 Temp 99.5 Pulse 87 80 80 Resp B/P (MAP) 111/67 (82) Pulse Ox 95 93 93 O2 Delivery Mechanical Ventilator FiO2 100 90 09/02/20 09/02/20 09/02/20 09/02/20 11:30 11:32 11:39 11:45 Temp 99.5 99.5 99.5 Pulse 83 85 90 85 Resp B/P (MAP) 118/68 (85) Pulse Ox 96 95 97 97 FiO2 90 09/02/20 09/02/20 09/02/20 09/02/20 11:45 11:47 11:47 12:00 Temp 99.5 99.5 99.5 99.5 Pulse 85 89 89 84 Resp B/P (MAP) 126/69 (88) 126/69 (88) Pulse Ox 97 96 96 97 09/02/20 09/02/20 09/02/20 09/02/20 12:02 12:15 12:17 12:30 Temp 99.5 99.5 99.5 99.3 Pulse 83 81 82 86 Resp B/P (MAP) 121/68 (85) 120/67 (84) Pulse Ox 97 97 97 96 09/02/20 09/02/20 09/02/20 09/02/20 12:32 12:45 12:47 13:00 Temp 99.3 99.3 99.3 99.3 Pulse 81 82 79 82 Resp B/P (MAP) 116/71 (86) 113/70 (84) Pulse Ox 96 96 96 96 09/02/20 09/02/20 09/02/20 09/02/20 13:02 13:47 14:00 14:02 Temp 99.3 99.3 99.3 99.5 Pulse 81 75 79 73 Resp B/P (MAP) 111/65 (80) 113/66 (82) 113/65 (81) Pulse Ox 95 97 97 96 09/02/20 09/02/20 09/02/20 09/02/20 14:11 14:15 14:17 14:30 Temp 99.5 99.5 99.5 Pulse 78 80 76 81 Resp B/P (MAP) 119/71 (87) Pulse Ox 98 96 97 95 FiO2 90 09/02/20 09/02/20 09/02/20 09/02/20 14:32 14:45 14:47 15:00 Temp 99.5 99.7 99.7 99.7 Pulse 79 77 78 87 Resp B/P (MAP) 112/67 (82) 115/68 (84) Pulse Ox 96 96 96 09/02/20 09/02/20 09/02/20 09/02/20 15:02 15:15 15:17 15:30 Temp 99.7 99.7 99.7 99.7 Pulse 66 69 67 76 Resp B/P (MAP) 119/67 (84) 119/70 (86) Pulse Ox 93 96 96 97 09/02/20 09/02/20 09/02/20 09/02/20 15:32 15:45 15:47 15:48 Temp 99.7 99.7 99.7 Pulse 76 76 80 78 Resp B/P (MAP) 115/69 (84) 116/67 (83) Pulse Ox 97 97 97 96 09/02/20 09/02/20 09/02/20 09/02/20 15:48 15:51 16:00 16:02 Temp 99.9 99.9 Pulse 78 77 76 77 Resp B/P (MAP) 113/70 (84) Pulse Ox 96 97 97 97 FiO2 90 09/02/20 09/02/20 09/02/20 09/02/20 16:15 16:17 16:26 16:26 Temp 99.9 99.9 Pulse 79 79 80 Resp 09 23 27 B/P (MAP) 113/68 (83) Pulse Ox 97 97 93 O2 Delivery Mechanical Ventilator FiO2 90 09/02/20 09/02/20 09/02/20 09/02/20 16:30 16:45 16:47 17:00 Temp 100.0 100.0 100.0 100.0 Pulse 82 80 78 78 Resp B/P (MAP) 115/65 (82) Pulse Ox 97 97 97 97 09/02/20 09/02/20 09/02/20 09/02/20 17:02 17:15 17:17 17:29 Temp 100.0 100.2 100.2 Pulse 75 74 75 69 Resp 04 22 22 B/P (MAP) 120/73 (89) 116/73 (87) Pulse Ox 97 97 97 98 FiO2 90 09/02/20 09/02/20 09/02/20 09/02/20 17:30 17:30 17:32 17:45 Temp 100.2 100.2 100.4 Pulse 69 74 69 71 Resp B/P (MAP) 118/73 (88) Pulse Ox 98 97 97 97 O2 Delivery Mechanical Ventilator FiO2 90 09/02/20 09/02/20 09/02/20 09/02/20 17:47 18:00 18:02 18:15 Temp 100.4 100.4 100.4 100.4 Pulse 70 68 68 72 Resp B/P (MAP) 118/70 (86) 117/72 (87) Pulse Ox 97 98 98 98 09/02/20 09/02/20 09/02/20 09/02/20 18:17 18:47 19:02 19:17 Temp 100.4 100.4 100.4 100.4 Pulse 68 63 63 61 Resp 14 B/P (MAP) 117/71 (86) 119/74 (89) 117/76 (90) 121/77 (92) Pulse Ox 98 97 97 97 09/02/20 09/02/20 09/02/20 09/02/20 19:32 19:47 20:00 20:00 Temp 100.4 100.6 Pulse 61 60 62 Resp B/P (MAP) 121/72 (88) 117/73 (88) Pulse Ox 97 97 99 O2 Delivery Mechanical Ventilator 09/02/20 09/02/20 09/02/20 09/02/20 20:00 20:00 20:00 20:02 Temp 100.6 Pulse 60 57 57 63 Resp B/P (MAP) 116/70 (85) Pulse Ox 96 98 98 98 FiO2 90 90 09/02/20 09/02/20 09/02/20 09/02/20 20:17 20:32 20:47 21:02 Temp 100.6 100.6 100.6 100.6 Pulse 59 59 60 59 Resp B/P (MAP) 120/72 (88) 116/71 (86) 117/71 (86) 117/73 (88) Pulse Ox 98 98 98 98 09/02/20 09/02/20 09/02/20 09/02/20 21:17 21:32 21:47 22:02 Temp 100.8 100.8 100.8 100.8 Pulse 58 59 61 58 Resp B/P (MAP) 122/73 (89) 117/69 (85) 116/72 (87) 117/72 (87) Pulse Ox 98 97 97 97 09/02/20 09/02/20 09/02/20 09/02/20 22:17 22:30 22:37 22:47 Temp 100.8 100.6 100.4 Pulse 55 68 81 60 Resp 22 22 18 22 B/P (MAP) 125/72 (89) 130/61 (84) 133/75 (94) Pulse Ox 98 96 75 97 FiO2 90 09/02/20 09/02/20 09/02/20 09/02/20 23:02 23:11 23:11 23:17 Temp 100.2 100.0 Pulse 65 68 63 Resp 22 B/P (MAP) 133/76 (95) 129/70 (89) Pulse Ox 100 96 100 O2 Delivery Mechanical Ventilator FiO2 90 09/02/20 09/02/20 09/03/20 09/03/20 23:32 23:47 00:02 00:17 Temp 100.0 100.0 100.0 100.0 Pulse 65 66 60 60 Resp 29 26 26 B/P (MAP) 120/62 (81) 112/66 (81) 118/69 (85) 118/74 (89) Pulse Ox 100 100 99 100 09/03/20 09/03/20 09/03/20 09/03/20 00:32 00:47 01:00 01:02 Temp 100.0 99.9 99.9 Pulse 59 59 62 58 Resp B/P (MAP) 117/72 (87) 116/66 (83) 118/66 (83) Pulse Ox 100 100 99 100 FiO2 90 09/03/20 09/03/20 09/03/20 09/03/20 01:17 01:32 02:02 02:17 Temp 99.9 99.9 99.9 99.9 Pulse 60 58 58 57 Resp B/P (MAP) 116/69 (85) 114/65 (81) 111/65 (80) 113/65 (81) Pulse Ox 100 100 99 100 09/03/20 09/03/20 09/03/20 09/03/20 02:32 02:47 03:00 03:00 Temp 99.9 99.9 Pulse 58 61 59 Resp B/P (MAP) 114/67 (83) 109/65 (80) Pulse Ox 100 99 100 O2 Delivery Mechanical Ventilator FiO2 90 09/03/20 09/03/20 09/03/20 09/03/20 03:00 03:00 03:00 03:02 Temp 99.9 Pulse 59 59 68 59 Resp 32 32 32 37 B/P (MAP) 130/72 (91) Pulse Ox 98 98 99 100 FiO2 90 09/03/20 09/03/20 09/03/20 09/03/20 03:18 03:48 04:02 04:17 Temp 99.5 Pulse 81 91 87 90 Resp 29 36 24 29 B/P (MAP) 125/76 (92) 93/58 (70) 107/67 (80) 112/69 (83) Pulse Ox 99 93 100 95 09/03/20 09/03/20 09/03/20 09/03/20 04:32 04:47 05:02 05:17 Pulse 63 59 66 61 Resp 27 24 26 26 B/P (MAP) 117/69 (85) 116/68 (84) 110/63 (79) 110/66 (81) Pulse Ox 100 100 100 100 09/03/20 09/03/20 09/03/20 09/03/20 05:32 05:47 05:50 05:50 Pulse 63 67 68 Resp 24 25 49 25 B/P (MAP) 119/60 (79) 108/66 (80) Pulse Ox 100 99 90 99 FiO2 90 09/03/20 09/03/20 09/03/20 09/03/20 06:02 06:17 08:06 08:06 Pulse 65 71 61 61 Resp 26 26 B/P (MAP) 110/65 (80) 106/66 (79) Pulse Ox 100 100 98 98 O2 Delivery Mechanical Ventilator FiO2 90 09/03/20 09/03/20 09/03/20 08:07 08:17 10:21 Pulse 61 61 75 Resp 25 25 36 Pulse Ox 98 98 99 FiO2 90 80 Intake and Output 09/03/20 06:00 Intake Total 2256.74 ml Output Total 1250 ml Balance 1006.74 ml LABS LAB RESULTS Laboratory Tests Test 08/31/20 01:00 08/31/20 05:54 08/31/20 06:06 08/31/20 11:40 White Blood Count 25.4 10^3/uL 30.6 10^3/uL Red Blood Count 5.49 10^6/uL 5.65 10^6/uL Hemoglobin 17.8 g/dL 17.9 g/dL Hematocrit 48.6 % 50.3 % Mean Corpuscular Volume 88.5 fL 89.0 fL Mean Corpuscular Hemoglobin 32.4 pg 31.7 pg Mean Corpuscular Hemoglobin Concent 36.6 g/dL 35.6 g/dL Red Cell Distribution Width 12.4 % 12.7 % Platelet Count 232 10^3/uL 234 10^3/uL Mean Platelet Volume 9.2 fL 9.1 fL Neutrophils (%) (Auto) 88.4 % Lymphocytes (%) (Auto) 2.8 % Monocytes (%) (Auto) 6.8 % Neutrophils # (Auto) 22.4 10^3/uL Lymphocytes # (Auto) 0.72 10^3/uL1 Monocytes # (Auto) 1.7 10^3/uL Absolute Immature Granulocyte (auto 0.50 10^3 u/L Absolute Eosinophils (auto) 0.0 10^3/uL Immature Granulocytes % 2.00 % Eosinophils % 0.0 % Basophils % 0.0 % Basophils # 0.0 10^3/uL D-Dimer 0.33 mg/L Sodium Level 139 mmol/L Potassium Level 4.0 mmol/L Chloride Level 102.0 mmol/L Carbon Dioxide Level 25.6 mmol/L Anion Gap 15.4 Blood Urea Nitrogen 20 mg/dL Creatinine 1.07 mg/dL Estimated GFR () 86.8 Est GFR (CKD-EPI)(Non-Afr [place]) 71.8 BUN/Creatinine Ratio 18.0 Glucose Level 157 mg/dL Calcium Level 8.4 mg/dL Total Bilirubin 0.7 mg/dL Aspartate Amino Transf (AST/SGOT) 35 U/L Alanine Aminotransferase (ALT/SGPT) 77 U/L Alkaline Phosphatase 98 U/L C-Reactive Protein 12.72 mg/dL Total Protein 7.0 g/dL Albumin 2.7 g/dL Globulin 4.3 Albumin/Globulin Ratio 0.627 Procalcitonin 0.45 ng/mL Differential Total Cells Counted 100 #CELLS Segmented Neutrophils 89 % Lymphocytes 3 % Monocytes 8 % Differential Comment NORMAL Platelet Estimate ADEQUATE Platelet Morphology NORMAL Blood Gas Sample Site LR Blood Gas pH 7.430 Blood Gas PCO2 31.9 mmHg Blood Gas PO2 64.2 mmHg Blood Gas HCO3 20.7 mmol/L Blood Gas Base Excess -2.2 mmol/L Vince Test POSITIVE Arterial Blood Oxygen Saturation 92.7 % Deoxyhemoglobin 7.2 % Carboxyhemoglobin 0.3 % Methemoglobin 0.6 % Total Hemoglobin 19.8 % Total Oxygen Concentration 25.5 % Oxygen Delivery Method (LAB) CPAP 12 FiO2 100 % Total Carbon Dioxide 21.7 mmol/L Test 09/01/20 04:40 09/01/20 08:30 09/01/20 08:40 09/01/20 08:50 White Blood Count 20.4 10^3/uL Red Blood Count 5.40 10^6/uL Hemoglobin 17.3 g/dL Hematocrit 48.5 % Mean Corpuscular Volume 89.8 fL Mean Corpuscular Hemoglobin 32.0 pg Mean Corpuscular Hemoglobin Concent 35.7 g/dL Red Cell Distribution Width 12.7 % Platelet Count 216 10^3/uL Mean Platelet Volume 9.5 fL Sodium Level 141 mmol/L Potassium Level 4.3 mmol/L Chloride Level 105.0 mmol/L Carbon Dioxide Level 24.8 mmol/L Anion Gap 15.5 Blood Urea Nitrogen 30 mg/dL Creatinine 1.15 mg/dL Estimated GFR () 79.9 Est GFR (CKD-EPI)(Non-Afr [place]) 66.0 BUN/Creatinine Ratio 26.0 Glucose Level 119 mg/dL Calcium Level 8.5 mg/dL Phosphorus Level 4.1 mg/dL Magnesium Level 3.0 mg/dL Total Bilirubin 1.1 mg/dL Aspartate Amino Transf (AST/SGOT) 56 U/L Alanine Aminotransferase (ALT/SGPT) 56 U/L Alkaline Phosphatase 84 U/L Total Protein 7.0 g/dL Albumin 2.4 g/dL Globulin 4.6 Albumin/Globulin Ratio 0.521 Blood Gas Sample Site RT RADIAL ARTERY Blood Gas pH 7.391 Blood Gas PCO2 39.3 mmHg Blood Gas PO2 58.3 mmHg Blood Gas HCO3 23.3 mmol/L Blood Gas Base Excess -1.3 mmol/L Vince Test N/A Arterial Blood Oxygen Saturation 90.2 % Deoxyhemoglobin 9.8 % Carboxyhemoglobin 0.3 % Methemoglobin 0.1 % Total Hemoglobin 18.2 % Total Oxygen Concentration 22.9 % Blood Gas Temperature 37.0 Oxygen Delivery Method (LAB) bipap Blood Gas Vent Mode avaps FiO2 100 % Total Carbon Dioxide 24.5 mmol/L Urine Collection Type CATH Urine Color YELLOW Urine Appearance CLEAR Urine Bilirubin NEGATIVE MG/DL Urine Ketones NEGATIVE Urine Specific [place] 1.030 Urine pH 5.5 Urine Protein 100 mg/dL Urine Urobilinogen NEGATIVE Urine Nitrate NEGATIVE Urine Leukocyte Esterase NEGATIVE Urine Blood MODERATE Urine RBC 0-2 RBC/HPF Urine WBC 2-5 WBC/HPF Urine Squamous Epithelial Cells NONE SEEN #/HPF Urine Bacteria RARE Urine Glucose NORMAL Prothrombin Time 13.4 SEC Prothrombin Time INR (Non-Therap) 1.3 Fibrinogen 247 mg/dL Test 09/01/20 12:31 09/01/20 18:10 09/02/20 04:15 09/02/20 05:35 Blood Gas Sample Site RT RADIAL ARTERY RT RADIAL ARTERY Blood Gas pH 7.391 7.395 Blood Gas PCO2 44.9 mmHg 41.9 mmHg Blood Gas PO2 71.7 mmHg 154.5 mmHg Blood Gas HCO3 26.6 mmol/L 25.1 mmol/L Blood Gas Base Excess 1.2 mmol/L 0.1 mmol/L Vince Test POSITIVE POSITIVE Arterial Blood Oxygen Saturation 93.2 % 98.8 % Deoxyhemoglobin 6.7 % 1.2 % Carboxyhemoglobin 0.8 % 0.3 % Methemoglobin 0.6 % 0.3 % Total Hemoglobin 16.9 % 16.8 % Total Oxygen Concentration 21.8 % 23.4 % Blood Gas Temperature 37 37 Oxygen Delivery Method (LAB) VENT VETN Blood Gas Vent Mode AC VC A/C Blood Gas Vent Rate 20 22 FiO2 100 % 100 % Blood Gas Tidal Volume 450 ML 450 ML Blood Gas PEEP 16 CMH2O 16 CMH2O Total Carbon Dioxide 28.0 mmol/L 26.4 mmol/L White Blood Count 14.3 10^3/uL Red Blood Count 5.09 10^6/uL Hemoglobin 16.3 g/dL Hematocrit 46.3 % Mean Corpuscular Volume 91.0 fL Mean Corpuscular Hemoglobin 32.0 pg Mean Corpuscular Hemoglobin Concent 35.2 g/dL Red Cell Distribution Width 13.1 % Platelet Count 202 10^3/uL Mean Platelet Volume 9.8 fL Neutrophils (%) (Auto) 87.5 % Lymphocytes (%) (Auto) 6.4 % Monocytes (%) (Auto) 4.0 % Neutrophils # (Auto) 12.5 10^3/uL Lymphocytes # (Auto) 0.92 10^3/uL1 Monocytes # (Auto) 0.6 10^3/uL Absolute Immature Granulocyte (auto 0.29 10^3 u/L Absolute Eosinophils (auto) 0.0 10^3/uL Immature Granulocytes % 2.00 % Eosinophils % 0.0 % Basophils % 0.1 % Basophils # 0.0 10^3/uL D-Dimer 0.58 mg/L Sodium Level 141 mmol/L Potassium Level 4.1 mmol/L Chloride Level 106.0 mmol/L Carbon Dioxide Level 26.4 mmol/L Anion Gap 12.7 Blood Urea Nitrogen 31 mg/dL Creatinine 0.96 mg/dL Estimated GFR () 98.4 Est GFR (CKD-EPI)(Non-Afr [place]) 81.3 BUN/Creatinine Ratio 32.0 Glucose Level 222 mg/dL Calcium Level 8.4 mg/dL Phosphorus Level 3.0 mg/dL Magnesium Level 3.1 mg/dL Ferritin 3104 ng/mL Total Bilirubin 0.7 mg/dL Aspartate Amino Transf (AST/SGOT) 39 U/L Alanine Aminotransferase (ALT/SGPT) 52 U/L Alkaline Phosphatase 73 U/L Lactate Dehydrogenase 587 U/L Total Creatine Kinase 323 U/L C-Reactive Protein 18.05 mg/dL Total Protein 6.4 g/dL Albumin 2.3 g/dL Globulin 4.1 Albumin/Globulin Ratio 0.560 Procalcitonin 0.78 ng/mL Segmented Neutrophils 93 % Lymphocytes 2 % Monocytes 5 % Platelet Estimate ADEQUATE Platelet Morphology NORMAL Test 09/02/20 07:18 09/03/20 05:01 09/03/20 06:09 09/03/20 09:06 Blood Gas Sample Site RT RADIAL ARTERY RT RADIAL ARTERY Blood Gas pH 7.409 7.428 Blood Gas PCO2 40.2 mmHg 42.8 mmHg Blood Gas PO2 103.5 mmHg 81.1 mmHg Blood Gas HCO3 24.9 mmol/L 27.6 mmol/L Blood Gas Base Excess 0.3 mmol/L 2.9 mmol/L Vince Test POSITIVE POSITIVE Arterial Blood Oxygen Saturation 98.0 % 96.0 % Deoxyhemoglobin 2.0 % 4.0 % Carboxyhemoglobin 0.5 % 0.1 % Methemoglobin 0.4 % 0.2 % Total Hemoglobin 16.1 % 16.2 % Total Oxygen Concentration 22.1 % 21.8 % Blood Gas Temperature 37 Oxygen Delivery Method (LAB) VENT MV Blood Gas Vent Mode AC VC AC Blood Gas Vent Rate 22 22 FiO2 100 % 90 % Blood Gas Tidal Volume 450 ML 450 ML Blood Gas PEEP 16 CMH2O 16.0 CMH2O Total Carbon Dioxide 26.1 mmol/L 29.0 mmol/L White Blood Count 17.9 10^3/uL Red Blood Count 4.79 10^6/uL Hemoglobin 15.2 g/dL Hematocrit 44.0 % Mean Corpuscular Volume 91.9 fL Mean Corpuscular Hemoglobin 31.7 pg Mean Corpuscular Hemoglobin Concent 34.5 g/dL Red Cell Distribution Width 13.0 % Platelet Count 198 10^3/uL Mean Platelet Volume 9.8 fL Neutrophils (%) (Auto) 90.7 % Lymphocytes (%) (Auto) 3.3 % Monocytes (%) (Auto) 5.0 % Neutrophils # (Auto) 16.3 10^3/uL Lymphocytes # (Auto) 0.60 10^3/uL1 Monocytes # (Auto) 0.9 10^3/uL Absolute Immature Granulocyte (auto 0.16 10^3 u/L Absolute Eosinophils (auto) 0.0 10^3/uL Immature Granulocytes % 0.90 % Eosinophils % 0.0 % Basophils % 0.1 % Basophils # 0.0 10^3/uL D-Dimer 0.87 mg/L Sodium Level 143 mmol/L Potassium Level 4.1 mmol/L Chloride Level 108.0 mmol/L Carbon Dioxide Level 26.3 mmol/L Anion Gap 12.8 Blood Urea Nitrogen 33 mg/dL Creatinine 0.82 mg/dL Estimated GFR () 118.0 Est GFR (CKD-EPI)(Non-Afr [place]) 97.5 BUN/Creatinine Ratio 40.0 Glucose Level 175 mg/dL Calcium Level 8.1 mg/dL Ferritin 2715 ng/mL Total Bilirubin 0.5 mg/dL Aspartate Amino Transf (AST/SGOT) 25 U/L Alanine Aminotransferase (ALT/SGPT) 39 U/L Alkaline Phosphatase 61 U/L Lactate Dehydrogenase 473 U/L Total Creatine Kinase 138 U/L C-Reactive Protein 8.70 mg/dL Total Protein 5.9 g/dL Albumin 2.1 g/dL Globulin 3.8 Albumin/Globulin Ratio 0.552 Procalcitonin 0.42 ng/mL Segmented Neutrophils 91 % Lymphocytes 3 % Monocytes 6 % Platelet Estimate ADEQUATE Platelet Morphology NORMAL Test 09/03/20 11:43 Bedside Glucose 113 Current Medications Medications (Trade) Dose Ordered Sig/Esutardo Route PRN Reason Start Time Stop Time Status Last Admin Dose Admin Enoxaparin Sodium (Lovenox) 40 mg DAILY SQ 11/20/20 09:00 09/30/20 08:59 09/03/20 10:00 Remdesivir 200 mg/ Sodium Chloride 140 ml @ 120.69 mls/ hr OT IV 08/31/20 09:30 08/31/20 10:40 DC 08/31/20 09:38 Lorazepam (Ativan) 1 mg Q3HR PRN IV ANXIETY 08/31/20 05:00 09/01/20 10:41 DC 09/01/20 06:00 Azithromycin 500 mg/Sodium Chloride 250 ml @ 175 mls/hr Q24HRS IV 08/31/20 05:00 09/04/20 08:00 09/03/20 04:06 Ceftriaxone Sodium 1000 mg/ Sodium Chloride 100 ml @ 100 mls/hr Q24HRS IV 08/31/20 05:00 09/30/20 04:59 09/03/20 04:06 Lorazepam (Ativan) 1 mg STAT STAT IV 08/31/20 05:16 08/31/20 08:31 DC 08/31/20 05:34 Sodium Chloride 100 ml @ ud STK-MED ONCE IV 08/31/20 05:18 08/31/20 05:21 DC Ceftriaxone Sodium (Rocephin) 1,000 mg STK-MED ONCE .ROUTE 08/31/20 05:19 08/31/20 05:21 DC Sodium Chloride 500 ml @ ud STK-MED ONCE IV 08/31/20 05:37 08/31/20 05:40 DC Morphine Sulfate (Morphine Sulfate) 0.5 mg STAT ONCE IV 08/31/20 06:15 08/31/20 08:44 DC 08/31/20 06:15 Albuterol/ Ipratropium (Duo 0.5-3(2.5) Mg/3 ml) 3 ml RTQ6H IH 08/31/20 08:00 09/30/20 07:59 09/03/20 09:40 Albuterol Sulfate (Ventolin) 2.5 mg RTQ4 PRN IH WHEEZING 08/31/20 08:00 09/30/20 07:59 Furosemide (Lasix) 40 mg STAT STAT IV 08/31/20 07:55 08/31/20 08:44 DC 08/31/20 08:08 Morphine Sulfate (Morphine Sulfate) 0.5 mg OT STAT IV 08/31/20 07:56 08/31/20 08:44 DC 08/31/20 08:25 Lorazepam (Ativan) 0.5 mg STAT STAT IV 08/31/20 07:56 08/31/20 08:43 DC 08/31/20 08:23 Sodium Chloride 250 ml @ ud STK-MED ONCE IV 08/31/20 08:03 08/31/20 08:05 DC Sodium Chloride 100 ml @ ud STK-MED ONCE IV 08/31/20 09:34 08/31/20 09:36 DC Remdesivir 100 mg/ Sodium Chloride 120 ml @ 111.111 mls/hr Q24HRS IV 09/01/20 09:00 10/01/20 08:59 09/03/20 11:00 Aspirin (Aspirin) 81 mg DAILY PO 09/01/20 09:00 10/01/20 08:59 09/03/20 09:00 Famotidine (Pepcid) 20 mg BID PO 08/31/20 21:00 09/01/20 22:57 DC 09/01/20 21:00 Ascorbic Acid (Vitamin C) 500 mg BID PO 08/31/20 21:00 09/30/20 20:59 09/03/20 09:00 Zinc Sulfate (Zinc Sulfate) 220 mg DAILY PO 08/31/20 21:00 09/30/20 20:59 09/03/20 09:00 Guaifenesin (Robitussin Dm) 5 ml Q4HR PRN PO COUGH 09/01/20 01:30 09/01/20 10:41 DC Morphine Sulfate (Morphine Sulfate) 2 mg STK-MED ONCE .ROUTE 09/01/20 03:32 09/01/20 03:34 DC Morphine Sulfate (Morphine Sulfate) 0.5 mg STAT STAT IV 09/01/20 03:33 09/01/20 03:35 DC 09/01/20 03:33 Sodium Chloride 100 ml @ ud STK-MED ONCE IV 09/01/20 05:28 09/01/20 05:30 DC Sodium Chloride 250 ml @ ud STK-MED ONCE IV 09/01/20 05:29 09/01/20 05:30 DC Ceftriaxone Sodium (Rocephin) 1,000 mg STK-MED ONCE .ROUTE 09/01/20 05:29 09/01/20 05:31 DC Benzonatate (Tessalon Perle) 100 mg Q2 PRN PO COUGH 09/01/20 06:00 09/01/20 05:50 DC Dexmedetomidine HCl 200 mcg/ Sodium Chloride 50 ml @ 0 mls/hr IV 09/01/20 06:00 09/01/20 08:24 DC Sodium Chloride 250 ml @ ud STK-MED ONCE IV 09/01/20 05:37 09/01/20 05:39 DC Benzonatate (Tessalon Perle) 200 mg TID PRN PO COUGH 09/01/20 06:00 09/01/20 10:41 DC 09/01/20 06:00 Acetaminophen/ Hydrocodone Bitart ([place] 5mg) 1 ea TID PRN PO PAIN 4 - 6 09/01/20 06:00 09/01/20 10:41 DC Dexmedetomidine HCl 400 mcg/ Sodium Chloride 100 ml @ 0 mls/hr IV 09/01/20 08:30 10/01/20 08:29 09/02/20 13:29 Sodium Chloride 1,000 ml @ ud STK-MED ONCE .ROUTE 09/01/20 10:16 09/01/20 10:18 DC Sodium Chloride 1,000 ml @ ud STK-MED ONCE .ROUTE 09/01/20 10:18 09/01/20 10:20 DC Propofol 100 ml @ ud STK-MED ONCE IV 09/01/20 10:28 09/01/20 10:30 DC Vecuronium [place] (Norcuron) 10 mg STK-MED ONCE .ROUTE 09/01/20 10:29 09/01/20 10:31 DC Propofol (Diprivan) Diprivan IV infusion tritra... TITRATE PRN IV sedation 09/01/20 10:30 10/01/20 10:29 09/03/20 04:49 Propofol (Diprivan) STAT STAT IV 09/01/20 10:29 09/01/20 10:38 DC 09/01/20 11:50 Vecuronium [place] (Norcuron) 5 mg Q1HR IV 09/01/20 11:00 10/01/20 10:59 09/02/20 22:44 Vecuronium [place] (Norcuron) 2 mg Q30MIN PRN IV paralysis 09/01/20 11:00 10/01/20 10:59 09/02/20 02:20 Fentanyl Citrate 1000 mcg/Sodium Chloride 100 ml @ 0 mls/hr IV 09/01/20 11:30 10/01/20 11:29 09/02/20 17:15 Sterile Water (Water) 1,000 ml STK-MED ONCE .ROUTE 09/01/20 13:55 09/01/20 13:57 DC Propofol (Diprivan) 200 mg STK-MED ONCE IV 09/01/20 12:00 09/01/20 21:42 DC Rocuronium [place] (Zemuron) 100 mg STK-MED ONCE IV 09/01/20 12:00 09/01/20 21:42 DC Succinylcholine Chloride (Quelicin) 100 mg STK-MED ONCE IV 09/01/20 12:00 09/01/20 21:42 DC Famotidine (Pepcid) 20 mg BID IV 09/02/20 09:00 10/02/20 08:59 09/03/20 09:00 Famotidine (Pepcid) 20 mg STK-MED ONCE IV 09/02/20 07:57 09/02/20 07:59 DC Albuterol/ Ipratropium (Duoneb 0.5 Mg-3 Mg/3 ml Soln) 3 ml STK-MED ONCE IH 09/02/20 08:37 09/02/20 08:39 DC VTE VTE Risk Total Score: 2 VTE Risk Score VTE Risk: Score 0-1 = Low Risk (Aggressive mobilization; early ambulation; no VTE prophylaxis required) Score 2: Moderate Risk (Intermittent/Pneumatic Compression Device OR Lovenox/Heparin/Coumadin) Score 3-4: High Risk (Intermittent/Pneumatic Compression Device AND Lovenox/Heparin/Coumadin) Score > or =5: Highest Risk (Intermittent/Pneumatic Compression Device AND Lovenox/Heparin/Coumadin) VTE VTE Present on Admission: No Currently receiving anticoagul: No VTE Risk Total Score: 2 Assessment/Plan Assessment/Plan Assessment/Plan Pt is a 54 y/o M with PMHx of HTN, HLD, obesity, and anxiety. Patient History: Unknown 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 Plan Plan #1 Neuro: THe pt is being sedated with propofol precedex and fentanyl. #2 CV: The pt is normotensive at present. #3 Pulm: Pt has covid PNA now c/b ARDS and acute respiratory failure with hypoxia requiring intubation. The pt is on FIo2 of 90% and PEEP of 16. Pt receiv ed decadron, remdesivir, vit c, ceftriaxone/azithro, thiamine, check CXR, start duonebs, melatonin. Pt doing better will reduce to 70% and PEEP 12 #4 GI: TF #5 Renal: Monitor for renal failure, replete lytes #6 ID: Covid + and getting remdesivir ceftriaxone and azithro #7 Endo: keep FS 150-180 #8 Heme: Tx plats >10k hgb >7, pt at risk for clotting and so will give therapuetic a/c #9 PPx: lovenox and H2 I discussed pt with [employer] and completed the video assessment with assistance from the [employer]N. I spent a total of greater than 60 minutes formulating critical care for this patient today. I saw this patient and completed a full visual exam via audio-visual HIPAA compliant technology. YAMILETH PAGAN MD Sep 03, 2020 13:12
[2020-09-03 14:06] LABS: ABG PCO2 46.5 mmHg (35.0-45.0); ABG PH 7.357 (7.350-7.450); BE(B) -0.5 mmol/L (-2.0-2.0); HCO3act 25.5 mmol/L (22.0-26.0); pO2 64.6 mmHg (80.0-100.0)
[2020-09-03] MEDS ORDERED: WATER ONE (14:28)
[2020-09-03] MEDS: NORCURON IV PRN ×2 (15:00→16:00)
[2020-09-03] MEDS: NORCURON IV SCH ×2 (17:10→20:31)
[2020-09-03 17:43] LABS: ABG PCO2 41.3 mmHg (35.0-45.0); ABG PH 7.433 (7.350-7.450); BE(B) 2.5 mmol/L (-2.0-2.0); pO2 73.8 mmHg (80.0-100.0)
[2020-09-03] MEDS: PRECEDEX IV SCH (18:23)
[2020-09-03] MEDS: NS IV SCH (18:23)
--- NOTE | 2020-09-03 21:10 | PRM.PN ---
Subjective Subjective Date: Sep 03, 2020 Time: 21:05 Subjective Pt s/e this am at bedside. He is doing well overall and has been afebrile and HDS. His respiratory status is stable on mechanical ventilation. Review of Systems ENT: Other Other Unable to be obtained due tot sedation Allergies: Coded Allergies: Sulfa (Sulfonamide Antibiotics) (Verified Allergy, Mild, 08/31/20) Scheduled Atorvastatin 10MG (Lipitor 10MG), 1 TAB PO HS, (Reported) Bisoprolol Fumarate/Hctz (Bisoprolol-Hctz 5-6.25 Mg Tab), 1 TAB PO DAILY, (Reported) Temazepam (Restoril), 1 CAP PO HS, (Reported) Objective Vitals and I/O Vital Sign - Last 24 Hours 09/02/20 09/02/20 09/02/20 09/02/20 21:17 21:32 21:47 22:02 Temp 100.8 100.8 100.8 100.8 Pulse 58 59 61 58 Resp B/P (MAP) 122/73 (89) 117/69 (85) 116/72 (87) 117/72 (87) Pulse Ox 98 97 97 97 09/02/20 09/02/20 09/02/20 09/02/20 22:17 22:30 22:37 22:47 Temp 100.8 100.6 100.4 Pulse 55 68 81 60 Resp 18 22 B/P (MAP) 125/72 (89) 130/61 (84) 133/75 (94) Pulse Ox 98 96 75 97 FiO2 90 09/02/20 09/02/20 09/02/20 09/02/20 23:02 23:11 23:11 23:17 Temp 100.2 100.0 Pulse 65 68 63 Resp 22 B/P (MAP) 133/76 (95) 129/70 (89) Pulse Ox 100 96 100 O2 Delivery Mechanical Ventilator FiO2 90 09/02/20 09/02/20 09/03/20 09/03/20 23:32 23:47 00:02 00:17 Temp 100.0 100.0 100.0 100.0 Pulse 65 66 60 60 Resp 29 29 26 26 B/P (MAP) 120/62 (81) 112/66 (81) 118/69 (85) 118/74 (89) Pulse Ox 100 100 99 100 09/03/20 09/03/20 09/03/20 09/03/20 00:32 00:47 01:00 01:02 Temp 100.0 99.9 99.9 Pulse 59 59 62 58 Resp 24 B/P (MAP) 117/72 (87) 116/66 (83) 118/66 (83) Pulse Ox 100 100 99 100 FiO2 90 09/03/20 09/03/20 09/03/20 09/03/20 01:17 01:32 02:02 02:17 Temp 99.9 99.9 99.9 99.9 Pulse 60 58 58 57 Resp 24 B/P (MAP) 116/69 (85) 114/65 (81) 111/65 (80) 113/65 (81) Pulse Ox 100 100 99 100 09/03/20 09/03/20 09/03/20 09/03/20 02:32 02:47 03:00 03:00 Temp 99.9 99.9 Pulse 58 61 59 Resp 27 B/P (MAP) 114/67 (83) 109/65 (80) Pulse Ox 100 99 100 O2 Delivery Mechanical Ventilator FiO2 90 09/03/20 09/03/20 09/03/20 09/03/20 03:00 03:00 03:00 03:02 Temp 99.9 Pulse 59 59 68 59 Resp 32 32 32 37 B/P (MAP) 130/72 (91) Pulse Ox 98 98 99 100 FiO2 90 09/03/20 09/03/20 09/03/20 09/03/20 03:18 03:48 04:02 04:17 Temp 99.5 Pulse 81 91 87 90 Resp 29 36 24 29 B/P (MAP) 125/76 (92) 93/58 (70) 107/67 (80) 112/69 (83) Pulse Ox 99 93 100 95 09/03/20 09/03/20 09/03/20 09/03/20 04:32 04:47 05:02 05:17 Pulse 63 59 66 61 Resp 27 24 26 26 B/P (MAP) 117/69 (85) 116/68 (84) 110/63 (79) 110/66 (81) Pulse Ox 100 100 100 100 09/03/20 09/03/20 09/03/2009/03/20 05:32 05:47 05:50 05:50 Pulse 63 67 68 Resp 24 25 49 25 B/P (MAP) 119/60 (79) 108/66 (80) Pulse Ox 100 99 90 99 FiO2 90 09/03/20 09/03/20 09/03/20 09/03/20 06:02 06:17 08:00 08:00 Pulse 65 71 53 Resp 26 27 22 B/P (MAP) 110/65 (80) 106/66 (79) Pulse Ox 100 100 100 O2 Delivery Mechanical Ventilator FiO2 70 09/03/20 09/03/20 09/03/20 09/03/20 08:06 08:06 08:07 08:17 Pulse 61 61 61 61 Resp 26 26 25 25 Pulse Ox 98 98 98 98 O2 Delivery Mechanical Ventilator FiO2 90 90 09/03/20 09/03/20 09/03/20 09/03/20 10:21 12:00 12:00 13:50 Pulse 75 53 75 Resp 36 22 22 Pulse Ox 99 100 99 O2 Delivery Mechanical Ventilator FiO2 80 70 80 09/03/20 09/03/20 09/03/20 09/03/20 15:24 15:24 15:35 16:00 Pulse 58 75 58 53 Resp 31 22 31 22 Pulse Ox 99 99 99 100 FiO2 80 70 09/03/20 09/03/20 09/03/20 09/03/20 16:00 16:17 16:30 16:32 Temp 99.7 99.7 99.7 Pulse 63 57 60 Resp 50 48 82 B/P (MAP) 141/77 (98) 144/82 (102) Pulse Ox 99 100 99 O2 Delivery Mechanical Ventilator 09/03/20 09/03/20 09/03/20 09/03/20 16:45 16:47 17:00 17:02 Temp 99.7 99.7 99.7 99.7 Pulse 57 55 56 54 Resp 49 42 28 37 B/P (MAP) 145/79 (101) 143/79 (100) Pulse Ox 100 100 100 100 09/03/20 09/03/20 09/03/20 09/03/20 17:15 17:17 17:30 17:32 Temp 99.7 99.7 99.7 99.7 Pulse 70 65 57 60 Resp 22 22 25 30 B/P (MAP) 128/65 (86) 129/66 (87) Pulse Ox 99 100 100 100 09/03/20 09/03/20 09/03/20 09/03/20 17:45 17:47 17:52 18:00 Temp 99.5 99.5 99.5 Pulse 54 54 53 53 Resp 22 B/P (MAP) 123/67 (85) Pulse Ox 100 100 100 100 FiO2 80 09/03/20 09/03/20 09/03/20 09/03/20 18:02 18:06 18:15 18:17 Temp 99.5 99.5 99.7 99.7 Pulse 52 54 53 53 Resp 22 22 22 B/P (MAP) 129/67 (87) 126/66 (86) 128/68 (88) Pulse Ox 100 100 100 100 09/03/20 18:21 Temp 99.7 Pulse 53 Resp 22 B/P (MAP) 130/72 (91) Pulse Ox 100 Intake and Output 09/03/20 07:00 Intake Total 1316.74 ml Output Total 1150 ml Balance 166.74 ml General: No acute distress, Other (intubated and sedated ) HEENT: Atraumatic, PERRLA, Other (ETT in place ) Neck: Supple, No JVD Lungs: Other (breath sounds equal and symmetric. Some scattered rales and coarse lung sounds) Heart: Regular rate, Normal S1, Normal S2, No murmurs Abdomen: Normal bowel sounds, Soft Extremities: No clubbing, No cyanosis, No edema, Normal pulses, No tenderness/swelling Skin: No rashes, No breakdown, No significant lesion, Other (There is signicant subq emphysema overlying his chest and neck. ) Neuro: Other (sedated and paralyzed) Psych/Mental Status: Other (deferred; sedated) All Results(Lab/Rad) Laboratory Tests Test 08/31/20 11:40 09/01/20 04:40 Blood Gas Sample Site LR Blood Gas pH 7.430 Blood Gas PCO2 31.9 mmHg Blood Gas PO2 64.2 mmHg Blood Gas HCO3 20.7 mmol/L Blood Gas Base Excess -2.2 mmol/L Vince Test POSITIVE Arterial Blood Oxygen Saturation 92.7 % Deoxyhemoglobin 7.2 % Carboxyhemoglobin 0.3 % Methemoglobin 0.6 % Total Hemoglobin 19.8 % Total Oxygen Concentration 25.5 % Oxygen Delivery Method (LAB) CPAP 12 FiO2 100 % Total Carbon Dioxide 21.7 mmol/L White Blood Count 20.4 10^3/uL Red Blood Count 5.40 10^6/uL Hemoglobin 17.3 g/dL Hematocrit 48.5 % Mean Corpuscular Volume 89.8 fL Mean Corpuscular Hemoglobin 32.0 pg Mean Corpuscular Hemoglobin Concent 35.7 g/dL Red Cell Distribution Width 12.7 % Platelet Count 216 10^3/uL Mean Platelet Volume 9.5 fL Sodium Level 141 mmol/L Potassium Level 4.3 mmol/L Chloride Level 105.0 mmol/L Carbon Dioxide Level 24.8 mmol/L Anion Gap 15.5 Blood Urea Nitrogen 30 mg/dL Creatinine 1.15 mg/dL Estimated GFR () 79.9 Est GFR (CKD-EPI)(Non-Afr Swedish) 66.0 BUN/Creatinine Ratio 26.0 Glucose Level 119 mg/dL Calcium Level 8.5 mg/dL Phosphorus Level 4.1 mg/dL Magnesium Level 3.0 mg/dL Total Bilirubin 1.1 mg/dL Aspartate Amino Transf (AST/SGOT) 56 U/L Alanine Aminotransferase (ALT/SGPT) 56 U/L Alkaline Phosphatase 84 U/L Total Protein 7.0 g/dL Albumin 2.4 g/dL Globulin 4.6 Albumin/Globulin Ratio 0.521 Current Medications Medications (Trade) Dose Ordered Sig/Estuardo Route PRN Reason Start Time Stop Time Status Last Admin Dose Admin Enoxaparin Sodium (Lovenox) 40 mg DAILY SQ 08/31/20 09:00 09/30/20 08:59 08/31/20 09:33 Remdesivir 200 mg/ Sodium Chloride 140 ml @ 120.69 mls/ hr OT IV 08/31/20 09:30 08/31/20 10:40 DC 08/31/20 09:38 Lorazepam (Ativan) 1 mg Q3HR PRN IV ANXIETY 08/31/20 05:00 09/30/20 04:59 09/01/20 06:00 Azithromycin 500 mg/Sodium Chloride 250 ml @ 175 mls/hr Q24HRS IV 08/31/20 05:00 09/04/20 08:00 09/01/20 05:00 Ceftriaxone Sodium 1000 mg/ Sodium Chloride 100 ml @ 100 mls/hr Q24HRS IV 08/31/20 05:00 09/30/20 04:59 09/01/20 05:00 Lorazepam (Ativan) 1 mg STAT STAT IV 08/31/20 05:16 08/31/20 08:31 DC 08/31/20 05:34 Sodium Chloride 100 ml @ ud STK-MED ONCE IV 08/31/20 05:18 08/31/20 05:21 DC Ceftriaxone Sodium (Rocephin) 1,000 mg STK-MED ONCE .ROUTE 08/31/20 05:19 08/31/20 05:21 DC Sodium Chloride 500 ml @ ud STK-MED ONCE IV 08/31/20 05:37 08/31/20 05:40 DC Morphine Sulfate (Morphine Sulfate) 0.5 mg STAT ONCE IV 08/31/20 06:15 08/31/20 08:44 DC 08/31/20 06:15 Albuterol/ Ipratropium (Duo 0.5-3(2.5) Mg/3 ml) 3 ml RTQ6H IH 08/31/20 08:00 09/30/20 07:59 08/31/20 16:30 Albuterol Sulfate (Ventolin) 2.5 mg RTQ4 PRN IH WHEEZING 08/31/20 08:00 09/30/20 07:59 Furosemide (Lasix) 40 mg STAT STAT IV 08/31/20 07:55 08/31/20 08:44 DC 08/31/20 08:08 Morphine Sulfate (Morphine Sulfate) 0.5 mg OT STAT IV 08/31/20 07:56 08/31/20 08:44 DC 08/31/20 08:25 Lorazepam (Ativan) 0.5 mg STAT STAT IV 08/31/20 07:56 08/31/20 08:43 DC 08/31/20 08:23 Sodium Chloride 250 ml @ ud STK-MED ONCE IV 08/31/20 08:03 08/31/20 08:05 DC Sodium Chloride 100 ml @ ud STK-MED ONCE IV 08/31/20 09:34 08/31/20 09:36 DC Remdesivir 100 mg/ Sodium Chloride 120 ml @ 111.111 mls/hr Q24HRS IV 09/01/20 09:00 10/01/20 08:59 Aspirin (Aspirin) 81 mg DAILY PO 09/01/20 09:00 10/01/20 08:59 Famotidine (Pepcid) 20 mg BID PO 08/31/20 21:00 09/30/20 20:59 08/31/20 20:46 Ascorbic Acid (Vitamin C) 500 mg BID PO 08/31/20 21:00 09/30/20 20:59 08/31/20 21:00 Zinc Sulfate (Zinc Sulfate) 220 mg DAILY PO 08/31/20 21:00 09/30/20 20:59 08/31/20 21:00 Guaifenesin (Robitussin Dm) 5 ml Q4HR PRN PO COUGH 09/01/20 01:30 10/01/20 01:29 Morphine Sulfate (Morphine Sulfate) 2 mg STK-MED ONCE .ROUTE 09/01/20 03:32 09/01/20 03:34 DC Morphine Sulfate (Morphine Sulfate) 0.5 mg STAT STAT IV 09/01/20 03:33 09/01/20 03:35 DC 09/01/20 03:33 Sodium Chloride 100 ml @ ud STK-MED ONCE IV 09/01/20 05:28 09/01/20 05:30 DC Sodium Chloride 250 ml @ ud STK-MED ONCE IV 09/01/20 05:29 09/01/20 05:30 DC Ceftriaxone Sodium (Rocephin) 1,000 mg STK-MED ONCE .ROUTE 09/01/20 05:29 09/01/20 05:31 DC Benzonatate (Tessalon Perle) 100 mg Q2 PRN PO COUGH 09/01/20 06:00 09/01/20 05:50 DC Dexmedetomidine HCl 200 mcg/ Sodium Chloride 50 ml @ 0 mls/hr IV 09/01/20 06:00 10/01/20 05:59 Sodium Chloride 250 ml @ ud STK-MED ONCE IV 09/01/20 05:37 09/01/20 05:39 DC Benzonatate (Tessalon Perle) 200 mg TID PRN PO COUGH 09/01/20 06:00 10/01/20 05:59 09/01/20 06:00 Acetaminophen/ Hydrocodone Bitart ([place] 5mg) 1 ea TID PRN PO PAIN 4 - 6 09/01/20 06:00 10/01/20 05:59 Assessment/Plan Assessment/Plan Assessment/Plan Pt is a 54 y/o M with PMHx of HTN, HLD, obesity, and anxiety. He was admitted the morning of 08/31 as a transfer from OSH for acute hypoxemic respiratory failure and COVID-19. He was started on full spectrum treatment for COVID-19 with IV Decadron, Azithromycin, Remdesivir, CCP, Zinc, and Vitamin C. On arrival to this facility, he was in mild to moderate respiratory distress and required continuous CPAP to maintain Oxygenation. He remained relatively stable throughout 08/31, but started becoming more fatigued the evening of 08/31, and was moved to the ICU for closer monitoring. In the ICU, he was continued on CPAP in an effort to avoid intubation. However, he continued to have difficulty with NIPPV and was frequently dyssynchronous, causing further desaturations. He was also noted to have Sub q emphysema in his chest and neck, which was concerning for barotrauma due to continued dyssynchrony. The morning of 09/01, he was noted to be in worsened respiratory distress and there was concern for impending respiratory collapse due to fatigue. The patient and I discussed intubation and he agreed to be electively intubated before he decompensated completely. The on- call INSURANCE CLAIMS PROCESSOR was called and the patient was subsequently intubated without complication. He was started on Propofol and fentanyl drips and paralyzed with IV vecuronium pushes. He has tolerated mechanical ventilation rather well and his O2 sats and PaO2 have improved markedly. Prior to intubation his ABG showed normal pH and a PaO2 in the 50's. His PaO2 improved to 70's within the hour, and was 150's on his most recent ABG the evening of 09/01. Of note, I did discuss the possibility of prolonged intubation, need for tracheostomy, and whether this is something that he would want done. He agreed that tracheostomy and long-term vent weaning is something that he would be ok with if it came down to it. # COVID-19 Pneumonia # Acute Hypoxemic Respiratory Failure # Need for Mechanical Ventilation # Pneumomediastinum without pneumothorax # Leukocytosis # HTN # HLD # Anxiety PLAN: - continue mechanical ventilation. - TeleMed Redye Hand for assistance with vent management; Pt is gradually weaning down - Keep Pplat < 30 to limit risk of pneumothorax and barotrauma. - If patient decompensates and becomes markedly hypoxemia and/or hypotension, think Tension Pneumo and perform emergent needle decompression - continue IV decadron, Azithromycin, Remdesivir, CCP, Zinc, and Vitamin C - Of note, on review of blood bank records, he was not transfused CCP as ordered on 09/01. Will have nursing reach out to blood bank for CCP and transfuse now - Contiue Rocephin for now. Follow procal. - continue Propofol/Fentanyl for sedation/analgesia; precedex is available for backup sedation if needed - continue IV Vecuronium 5mg q1h + IV Vec 2mg q30min PRN - continue ASA 81 - trend COVID markers q48h - CXR q48h and PRN - start TF per dietary rec's Sedation: propofol/precedex Analgesia: Fent VTE ppx: Lovenox GI ppx: Pepcid Diet: TF per dietary recs CODE: boil off machine operator cloth Spent: > 40 minutes between evaluation, coordination of care, and documentation JAMAICA DE LA PAZ MD Sep 03, 2020 21:10
[2020-09-04] VITALS (72 sets, daily range): BP systolic 101–136; BP diastolic 58–76
[2020-09-04] MEDS: DIPRIVAN IV PRN ×6 (00:10→20:55)
[2020-09-04] MEDS: ZITHROMAX 500 MG in NS 250ML 250 ML IV SCH (04:12)
[2020-09-04] MEDS: ROCEPHIN 1,000 MG in NS 100ML 100 ML IV SCH (04:12)
[2020-09-04] MEDS: DUO 0.5-3(2.5) MG/3 ML IH SCH ×4 (04:39→22:09)
[2020-09-04 04:52] LABS: LYMPHOCYTES % 5.2 % (24.0-44.0); MEAN CORP HGB 31.8 pg (26-34); MONOCYTES # 0.7 10^3/uL (0.3-0.8); MONOCYTES % 4.6 % (5.0-12.0); NEUTROPHIL # 13.7 10^3/uL (1.8-7.7); NEUTROPHILS % 89.5 % (41.0-85.0); PLATELET COUNT 183 10^3/uL (150-400); RED CELL DISTRIBUTION WIDTH 12.8 % (11.5-14.5)
[2020-09-04 05:18] LABS: CALCIUM 7.6 mg/dL (8.4-10.5); CARBON DIOXIDE 26.9 mmol/L (20.0-32)
[2020-09-04] MEDS: NORCURON IV SCH (06:28)
[2020-09-04] MEDS: NORCURON IV PRN ×8 (07:45→22:12)
--- NOTE | 2020-09-04 08:00 | DIREP ---
PROCEDURE:CHEST 1 VIEW COMPARISON:[facility], CT, CT CHEST W/O, 09/01/2020, 03:57 PM. [facility], CR, XRAY CHEST SINGLE VW, 09/01/2020, 11:48 AM. INDICATIONS:COVID PNA, Intubation FINDINGS: LUNGS/PLEURA:Stable ETT. No significant change in bilateral ground-glass infiltrate allowing for lower lung volumes. No large pleural effusion. Decreasing subcutaneous emphysema. CARDIAC:Normal cardiac silhouette and normal pulmonary vascularity. MEDIASTINUM:Small residual pneumomediastinum BONES:Thoracic spondylosis. OTHER:NGT courses subdiaphragmatic and off the field of view. CONCLUSION: 1. Stable multifocal pneumonia consists with Covid 19. 2. Improving subcutaneous emphysema. Dictated by: Princess Gonzalez MD on 09/04/2020 at 07:53 AM
[2020-09-04] MEDS: NS IV SCH (08:49)
[2020-09-04] MEDS: PRECEDEX IV SCH (08:49)
[2020-09-04] MEDS: ASPIRIN PO SCH (09:00)
[2020-09-04] MEDS: VITAMIN C PO SCH ×2 (09:00→20:55)
[2020-09-04] MEDS: LOVENOX SQ SCH ×2 (09:00→20:55)
[2020-09-04] MEDS: DEXAMETHASONE 10 MG/ML VIAL IV SCH (09:00)
[2020-09-04] MEDS: PEPCID IV SCH ×2 (09:00→20:55)
[2020-09-04] MEDS: REMDESIVIR (EUA) 100 MG in NS 100ML 100 ML IV SCH (09:00)
[2020-09-04] MEDS: ZINC SULFATE PO SCH (09:00)
[2020-09-04 09:17] LABS: ABG PCO2 36.2 mmHg (35.0-45.0); ABG PH 7.453 (7.350-7.450); BE(B) 1.2 mmol/L (-2.0-2.0); HCO3act 24.8 mmol/L (22.0-26.0); pO2 43.9 mmHg (80.0-100.0)
[2020-09-04] MEDS ORDERED: NS 500ML 500 ML IV ONE (09:35)
--- NOTE | 2020-09-04 11:47 | PRM.PN ---
Subjective Events since last encounter vented severe hypoxemia heavily sedated paralyzed as needed good urine outpt, hemodynamics stable Objective Exam,Results,Procedures labs, radiology and vital all reviewed Assessment & Plan Problems/DX: (1) ARDS (adult respiratory distress syndrome) (2) Pneumonia due to COVID-19 virus (3) SIRS (systemic inflammatory response syndrome) (4) Diabetes mellitus Provider Note: severe hypoxemia unable to wean at this time unable to lower fi02/peep at this time increase vecuronium dose prn cont steroids plasma, remdesiver increase lovenox bid I discussed pt with TERRITORY DEVELOPMENT MANAGER and completed the video assessment with assistance from the TERRITORY DEVELOPMENT MANAGER. I spent a total of greater than 60 minutes formulating critical care for this patient today. I saw this patient and completed a full visual exam via audio-visual HIPAA compliant technology. ANGELIQEU COOK MD Sep 04, 2020 11:47
--- NOTE | 2020-09-04 11:55 | DIET.OP ---
Nutrition Asmt/Malnutrit 2-17 Actual Date of Review: Sep 04, 2020 Nutritional Screening: vent/TF Diagnosis: COVID 19, resp distress Pertinent Medical Hx/Surgical: HTN Subjective Information: Telehealth consult - pt intubated and sedation. Propofol at 40 mcg/kg/min providing 589 kcal. Jevity 1.5 running at 65 mls/h. Gave recommendations to RN to lower to 40. Current Diet Order/Nutrition S: EN Pertinent Meds Current Medications Medications (Trade) Dose Ordered Sig/Estuardo PRN Reason Start Time Stop Time Status Last Admin Famotidine (Pepcid) 20 mg BID 09/02/20 09:00 10/02/20 08:59 09/04/20 09:00 Fentanyl Citrate 1000 mcg/Sodium Chloride 100 ml @ 0 mls/hr IV 09/01/20 11:30 10/01/20 11:29 09/02/20 17:15 Vecuronium [place] (Norcuron) 2 mg Q30MIN PRN paralysis 09/01/20 11:00 10/01/20 10:59 09/04/20 10:00 Vecuronium [place] (Norcuron) 15 mg Q1HR PRN vent dsynchrony or hypoxia 09/04/20 11:30 10/04/20 11:29 UNV Pertinent Labs Laboratory Tests Test 09/03/20 05:01 09/03/20 06:09 09/03/20 09:06 09/03/20 11:43 White Blood Count 17.9 10^3/uL Red Blood Count 4.79 10^6/uL Hemoglobin 15.2 g/dL Hematocrit 44.0 % Mean Corpuscular Volume 91.9 fL Mean Corpuscular Hemoglobin 31.7 pg Mean Corpuscular Hemoglobin Concent 34.5 g/dL Red Cell Distribution Width 13.0 % Platelet Count 198 10^3/uL Mean Platelet Volume 9.8 fL Neutrophils (%) (Auto) 90.7 % Lymphocytes (%) (Auto) 3.3 % Monocytes (%) (Auto) 5.0 % Neutrophils # (Auto) 16.3 10^3/uL Lymphocytes # (Auto) 0.60 10^3/uL1 Monocytes # (Auto) 0.9 10^3/uL Absolute Immature Granulocyte (auto 0.16 10^3 u/L Absolute Eosinophils (auto) 0.0 10^3/uL Immature Granulocytes % 0.90 % Eosinophils % 0.0 % Basophils % 0.1 % Basophils # 0.0 10^3/uL D-Dimer 0.87 mg/L Sodium Level 143 mmol/L Potassium Level 4.1 mmol/L Chloride Level 108.0 mmol/L Carbon Dioxide Level 26.3 mmol/L Anion Gap 12.8 Blood Urea Nitrogen 33 mg/dL Creatinine 0.82 mg/dL Estimated GFR () 118.0 Est GFR (CKD-EPI)(Non-Afr German) 97.5 BUN/Creatinine Ratio 40.0 Glucose Level 175 mg/dL Calcium Level 8.1 mg/dL Ferritin 2715 ng/mL Total Bilirubin 0.5 mg/dL Aspartate Amino Transf (AST/SGOT) 25 U/L Alanine Aminotransferase (ALT/SGPT) 39 U/L Alkaline Phosphatase 61 U/L Lactate Dehydrogenase 473 U/L Total Creatine Kinase 138 U/L C-Reactive Protein 8.70 mg/dL Total Protein 5.9 g/dL Albumin 2.1 g/dL Globulin 3.8 Albumin/Globulin Ratio 0.552 Procalcitonin 0.42 ng/mL Segmented Neutrophils 91 % Lymphocytes 3 % Monocytes 6 % Platelet Estimate ADEQUATE Platelet Morphology NORMAL Blood Gas Sample Site RT RADIAL ARTERY Blood Gas pH 7.428 Blood Gas PCO2 42.8 mmHg Blood Gas PO2 81.1 mmHg Blood Gas HCO3 27.6 mmol/L Blood Gas Base Excess 2.9 mmol/L Vince Test POSITIVE Arterial Blood Oxygen Saturation 96.0 % Deoxyhemoglobin 4.0 % Carboxyhemoglobin 0.1 % Methemoglobin 0.2 % Total Hemoglobin 16.2 % Total Oxygen Concentration 21.8 % Oxygen Delivery Method (LAB) MV Blood Gas Vent Mode AC Blood Gas Vent Rate 22 FiO2 90 % Blood Gas Tidal Volume 450 ML Blood Gas PEEP 16.0 CMH2O Total Carbon Dioxide 29.0 mmol/L Bedside Glucose 113 Test 09/03/20 13:57 09/03/20 17:31 09/04/20 04:20 09/04/20 08:14 Blood Gas Sample Site ART LINE ART LINE ART LINE Blood Gas pH 7.357 7.433 7.453 Blood Gas PCO2 46.5 mmHg 41.3 mmHg 36.2 mmHg Blood Gas PO2 64.6 mmHg 73.8 mmHg 43.9 mmHg Blood Gas HCO3 25.5 mmol/L 27.0 mmol/L 24.8 mmol/L Blood Gas Base Excess -0.5 mmol/L 2.5 mmol/L 1.2 mmol/L Vince Test N/A N/A N/A Arterial Blood Oxygen Saturation 91.1 % 95.1 % 82.4 % Deoxyhemoglobin 8.8 % 4.9 % 17.5 % Carboxyhemoglobin 0.9 % 0.1 % 0.5 % Methemoglobin 0.5 % 0.3 % 0.3 % Total Hemoglobin 16.1 % 16.1 % 16.1 % Total Oxygen Concentration 20.3 % 21.4 % 18.4 % Oxygen Delivery Method (LAB) MV MV MV Blood Gas Vent Mode ACVC AC ACVC Blood Gas Vent Rate 22 22 22 FiO2 70 % 70 % 70 % Blood Gas Tidal Volume 450 ML 450 ML 450 ML Blood Gas PEEP 12.0 CMH2O 12.0 CMH2O 12.0 CMH2O Total Carbon Dioxide 26.9 mmol/L 28.3 mmol/L 25.9 mmol/L White Blood Count 15.3 10^3/uL Red Blood Count 4.75 10^6/uL Hemoglobin 15.1 g/dL Hematocrit 44.2 % Mean Corpuscular Volume 93.1 fL Mean Corpuscular Hemoglobin 31.8 pg Mean Corpuscular Hemoglobin Concent 34.2 g/dL Red Cell Distribution Width 12.8 % Platelet Count 183 10^3/uL Mean Platelet Volume 9.5 fL Neutrophils (%) (Auto) 89.5 % Lymphocytes (%) (Auto) 5.2 % Monocytes (%) (Auto) 4.6 % Neutrophils # (Auto) 13.7 10^3/uL Lymphocytes # (Auto) 0.80 10^3/uL1 Monocytes # (Auto) 0.7 10^3/uL Absolute Immature Granulocyte (auto 0.11 10^3 u/L Absolute Eosinophils (auto) 0.0 10^3/uL Immature Granulocytes % 0.70 % Eosinophils % 0.0 % Basophils % 0.0 % Basophils # 0.0 10^3/uL D-Dimer 1.02 mg/L Sodium Level 142 mmol/L Potassium Level 4.1 mmol/L Chloride Level 107.0 mmol/L Carbon Dioxide Level 26.9 mmol/L Anion Gap 12.2 Blood Urea Nitrogen 21 mg/dL Creatinine 0.69 mg/dL Estimated GFR () 144.0 Est GFR (CKD-EPI)(Non-Afr German) 119.0 BUN/Creatinine Ratio 30.0 Glucose Level 143 mg/dL Calcium Level 7.6 mg/dL Ferritin 2265 ng/mL Total Bilirubin 0.5 mg/dL Aspartate Amino Transf (AST/SGOT) 30 U/L Alanine Aminotransferase (ALT/SGPT) 38 U/L Alkaline Phosphatase 65 U/L Lactate Dehydrogenase 487 U/L Total Creatine Kinase 135 U/L C-Reactive Protein 5.58 mg/dL Total Protein 5.5 g/dL Albumin 2.0 g/dL Globulin 3.5 Albumin/Globulin Ratio 0.571 Triglycerides Level 225 mg/dL Procalcitonin 0.10 ng/mL Height (Feet): 5 Height (Inches): 7 Current Weight: 204 %IBW: 138 Recent Weight Change: No Weight Status: Obese Food Allergies: No BEE in Kcals: Use Current Weight Calories/Kcals/Kg: [place] St Eq for vent Kcals Calculated: 2048 kcal Protein: Use Current Weight Protein g/k.8-1 Protein Calculated: 74-93g Fluid: ml: 2048 ml (1ml/kcal) Nutritional Problem: Nutr. Problems Present Problems: Excessive enteral nurition infusion Etiology: curent rate of 65 mls/hr Signs/Symptoms: jevity 1.5 @ 65 ml/hr currently providing 2340 kcal - exceding the pts needs RD Comments: 1. Recommend Jevity 1.5 at 40 mls/hr which will provide 1440 kcal, 61 g pro, 206 g CHO, 48 g fat, 730 ml of water meeting 100% of the pts estimated nutrition needs in combination with calories from propofol. 2. REcommend 200 ml water flush q 4 hrs. 3. Monitor Mg, K, P04 during enteral feedings. Continue to monitor BG and correct as indicated. 4. RD to update recommendations based on vent and sedation settings. Expected Outcomes TF adjusted to 40 mls/hr and meeting 100% of the pts needs the next 2 days. Discharge goal is pending. Malnutrtion/Nutrition Risk Edu: No MD Notificiation Needed?: No Brittany Coleman Sep 04, 2020 11:54
[2020-09-04] MEDS ORDERED: WATER ONE (17:03)
--- NOTE | 2020-09-04 23:49 | PRM.PN ---
Subjective Subjective Date: Sep 04, 2020 Time: 23:46 Subjective Pt s/e this am at bedside. He is doing well overall and has been afebrile and HDS. His respiratory status is stable on mechanical ventilation. Review of Systems ENT: Other Other Unable to be obtained due to sedation Allergies: Coded Allergies: Sulfa (Sulfonamide Antibiotics) (Verified Allergy, Mild, 08/31/20) Scheduled Atorvastatin 10MG (Lipitor 10MG), 1 TAB PO HS, (Reported) Bisoprolol Fumarate/Hctz (Bisoprolol-Hctz 5-6.25 Mg Tab), 1 TAB PO DAILY, (Reported) Temazepam (Restoril), 1 CAP PO HS, (Reported) Objective Vitals and I/O Vital Sign - Last 24 Hours 09/03/20 09/04/20 09/04/20 09/04/20 23:51 00:06 00:21 00:36 Temp 100.2 100.0 100.0 100.2 Pulse 75 65 80 61 Resp 22 24 35 24 B/P (MAP) 129/69 (89) 136/70 (92) 136/69 (91) 128/71 (90) Pulse Ox 100 100 99 98 09/04/20 09/04/20 09/04/20 09/04/20 00:51 01:00 01:06 01:21 Temp 100.2 100.4 100.4 Pulse 56 55 58 56 Resp 23 22 B/P (MAP) 131/72 (91) 131/75 (93) 132/72 (92) Pulse Ox 99 100 100 100 FiO2 70 09/04/20 09/04/20 09/04/20 09/04/20 01:36 01:51 02:06 02:21 Temp 100.4 100.4 100.6 100.6 Pulse 56 58 68 64 Resp 22 22 18 20 B/P (MAP) 130/76 (94) 127/73 (91) 120/68 (85) 122/67 (85) Pulse Ox 100 100 100 100 09/04/20 09/04/20 09/04/20 09/04/20 02:30 02:30 02:30 02:36 Temp 100.6 Pulse 64 64 64 60 Resp 25 25 20 B/P (MAP) 123/67 (85) Pulse Ox 99 99 100 100 FiO2 70 11/2409/04/20 09/04/20 09/04/20 02:51 03:06 03:11 03:11 Temp 100.8 100.8 Pulse 66 65 65 Resp 25 19 21 B/P (MAP) 122/69 (86) 120/66 (84) Pulse Ox 99 100 100 O2 Delivery Mechanical Ventilator FiO2 70 09/04/20 09/04/20 09/04/20 09/04/20 03:21 03:36 03:51 04:06 Temp 100.8 100.6 100.4 100.4 Pulse 64 63 56 55 Resp 19 29 25 8 B/P (MAP) 126/67 (86) 121/67 (85) 128/67 (87) 126/74 (91) Pulse Ox 100 99 99 100 09/04/20 09/04/20 09/04/20 09/04/20 04:21 04:36 04:43 04:51 Temp 100.4 100.4 100.2 Pulse 56 72 60 77 Resp 25 33 25 38 B/P (MAP) 123/69 (87) 113/67 (82) 113/63 (80) Pulse Ox 100 97 100 93 FiO2 70 09/04/20 09/04/20 09/04/20 09/04/20 05:06 05:21 05:36 05:51 Temp 100.4 100.2 100.2 100.2 Pulse 82 68 59 58 Resp 39 32 26 24 B/P (MAP) 116/71 (86) 112/58 (76) 121/66 (84) 119/72 (88) Pulse Ox 93 92 96 97 09/04/20 09/04/20 09/04/20 09/04/20 06:00 06:06 06:21 06:36 Temp 100.2 100.4 100.4 Pulse 57 59 69 74 Resp 23 23 25 27 B/P (MAP) 115/66 (82) 110/63 (79) 110/60 (77) Pulse Ox 97 98 98 98 FiO2 70 09/04/20 09/04/20 09/04/20 09/04/20 08:00 08:00 08:11 08:11 Pulse 53 66 74 Resp 22 25 27 Pulse Ox 100 94 98 O2 Delivery Mechanical Ventilator FiO2 70 70 09/04/20 09/04/20 09/04/20 09/04/20 08:11 08:11 10:11 10:26 Temp 100.0 100.4 Pulse 66 66 75 71 Resp 26 B/P (MAP) 101/58 111/60 Pulse Ox 94 94 O2 Delivery Mechanical Ventilator FiO2 70 09/04/20 09/04/20 09/04/20 09/04/20 10:33 10:41 11:01 11:31 Temp 100.4 100.3 100.3 Pulse 78 70 79 67 Resp 28 B/P (MAP) 103/60 111/60 109/59 Pulse Ox 98 FiO2 80 09/04/20 09/04/20 09/04/20 09/04/20 12:00 12:00 13:06 13:15 Temp 100.4 100.4 Pulse 53 72 76 Resp 22 54 42 B/P (MAP) 121/70 (87) Pulse Ox 100 98 97 O2 Delivery Mechanical Ventilator FiO2 80 09/04/20 09/04/20 09/04/20 09/04/20 13:21 13:30 13:36 13:45 Temp 100.4 100.2 100.0 100.0 Pulse 73 69 68 75 Resp 30 36 B/P (MAP) 115/64 (81) 117/61 (79) Pulse Ox 97 95 95 95 09/04/20 09/04/20 09/04/20 09/04/20 13:51 14:00 14:06 14:09 Temp 100.0 100.0 100.0 Pulse 66 71 67 105 Resp 35 48 88 35 B/P (MAP) 120/72 (88) 124/60 (81) Pulse Ox 93 95 94 94 09/04/20 09/04/20 09/04/20 09/04/20 14:09 14:09 14:15 14:21 Temp 100.0 100.0 Pulse 105 105 67 60 Resp 35 35 B/P (MAP) 117/68 (84) Pulse Ox 94 94 91 92 FiO2 80 09/04/20 09/04/20 09/04/20 09/04/20 14:30 14:36 14:45 14:51 Temp 100.0 99.9 99.9 99.9 Pulse 74 62 63 60 Resp 22 96 B/P (MAP) 127/70 (89) 121/66 (84) Pulse Ox 92 93 96 98 09/04/20 09/04/20 09/04/20 09/04/20 15:00 15:06 15:15 15:21 Temp 99.7 99.7 99.7 99.7 Pulse 68 64 61 59 Resp 22 B/P (MAP) 122/68 (86) 122/69 (86) Pulse Ox 99 100 100 100 09/04/20 09/04/20 09/04/20 09/04/20 15:36 15:45 15:51 16:00 Temp 99.5 99.5 99.5 Pulse 57 57 56 Resp B/P (MAP) 118/72 (87) 117/68 (84) Pulse Ox 100 100 100 O2 Delivery Mechanical Ventilator 09/04/20 09/04/20 09/04/20 09/04/20 16:00 16:00 16:06 16:15 Temp 99.5 99.3 99.3 Pulse 53 58 68 77 Resp B/P (MAP) 136/75 (95) Pulse Ox 100 100 99 97 FiO2 80 09/04/20 09/04/20 09/04/20 09/04/20 16:21 16:30 16:36 16:45 Temp 99.3 99.5 99.5 Pulse 80 73 73 74 Resp 33 37 38 22 B/P (MAP) 131/67 (88) 132/76 (94) Pulse Ox 96 96 95 96 FiO2 80 09/04/20 09/04/20 09/04/20 09/04/20 16:45 16:51 17:00 17:06 Temp 99.5 99.5 99.5 99.5 Pulse 80 69 65 66 Resp 22 B/P (MAP) 119/68 (85) 121/72 (88) Pulse Ox 95 96 96 97 09/04/20 09/04/20 09/04/20 09/04/20 17:15 17:21 17:30 17:36 Temp 99.5 99.5 99.5 99.3 Pulse 61 63 59 57 Resp 22 B/P (MAP) 119/71 (87) 115/68 (84) Pulse Ox 98 98 99 99 09/04/20 09/04/20 09/04/20 09/04/20 17:45 17:51 19:00 19:00 Temp 99.3 99.3 Pulse 56 55 50 Resp 23 B/P (MAP) 116/71 (86) Pulse Ox 99 99 100 O2 Delivery Mechanical Ventilator FiO2 80 09/04/20 09/04/20 09/04/20 09/04/20 19:06 19:21 19:36 19:51 Temp 98.6 98.6 98.6 98.6 Pulse 50 52 50 52 Resp 21 B/P (MAP) 120/68 (85) 127/67 (87) 120/75 (90) 115/65 (82) Pulse Ox 98 98 99 99 09/04/20 09/04/20 09/04/20 09/04/20 20:00 20:00 20:00 20:00 Pulse 50 50 50 50 Resp Pulse Ox 98 98 98 98 O2 Delivery Mechanical Ventilator FiO2 80 80 09/04/20 09/04/20 09/04/20 09/04/20 20:06 20:21 20:36 20:51 Temp 98.6 98.4 98.4 98.2 Pulse 53 51 51 51 Resp 22 B/P (MAP) 113/66 (82) 112/68 (83) 110/63 (79) 109/66 (80) Pulse Ox 98 98 98 99 09/04/20 09/04/20 09/04/20 09/04/20 21:06 21:21 21:36 21:51 Temp 98.2 98.1 98.1 98.1 Pulse 78 62 68 63 Resp 24 22 31 28 B/P (MAP) 112/71 (85) 105/60 (75) 119/63 (81) 117/69 (85) Pulse Ox 99 97 96 92 09/04/20 09/04/20 09/04/20 22:06 22:12 22:21 Temp 98.1 98.1 Pulse 61 54 62 Resp 30 22 22 B/P (MAP) 121/68 (85) 121/69 (86) Pulse Ox 92 99 92 FiO2 80 Intake and Output 09/04/20 07:00 Intake Total 3172 ml Output Total 1450 ml Balance 1722 ml General: No acute distress, Other (intubated and sedated ) HEENT: Atraumatic, PERRLA, Other (ETT in place ) Neck: Supple, No JVD Lungs: Other (breath sounds equal and symmetric. Lungs are mostly clear, but there are some scattered rales. ) Heart: Regular rate, Normal S1, Normal S2, No murmurs Abdomen: Normal bowel sounds, Soft Extremities: No clubbing, No cyanosis, No edema, Normal pulses, No tenderness/swelling Skin: No rashes, No breakdown, No significant lesion, Other (There is signicant subq emphysema overlying his chest and neck. ) Neuro: Other (sedated and paralyzed) Psych/Mental Status: Other (deferred; sedated) All Results(Lab/Rad) Laboratory Tests Test 08/31/20 11:40 09/01/20 04:40 Blood Gas Sample Site LR Blood Gas pH 7.430 Blood Gas PCO2 31.9 mmHg Blood Gas PO2 64.2 mmHg Blood Gas HCO3 20.7 mmol/L Blood Gas Base Excess -2.2 mmol/L Vince Test POSITIVE Arterial Blood Oxygen Saturation 92.7 % Deoxyhemoglobin 7.2 % Carboxyhemoglobin 0.3 % Methemoglobin 0.6 % Total Hemoglobin 19.8 % Total Oxygen Concentration 25.5 % Oxygen Delivery Method (LAB) CPAP 12 FiO2 100 % Total Carbon Dioxide 21.7 mmol/L White Blood Count 20.4 10^3/uL Red Blood Count 5.40 10^6/uL Hemoglobin 17.3 g/dL Hematocrit 48.5 % Mean Corpuscular Volume 89.8 fL Mean Corpuscular Hemoglobin 32.0 pg Mean Corpuscular Hemoglobin Concent 35.7 g/dL Red Cell Distribution Width 12.7 % Platelet Count 216 10^3/uL Mean Platelet Volume 9.5 fL Sodium Level 141 mmol/L Potassium Level 4.3 mmol/L Chloride Level 105.0 mmol/L Carbon Dioxide Level 24.8 mmol/L Anion Gap 15.5 Blood Urea Nitrogen 30 mg/dL Creatinine 1.15 mg/dL Estimated GFR () 79.9 Est GFR (CKD-EPI)(Non-Afr Filipino) 66.0 BUN/Creatinine Ratio 26.0 Glucose Level 119 mg/dL Calcium Level 8.5 mg/dL Phosphorus Level 4.1 mg/dL Magnesium Level 3.0 mg/dL Total Bilirubin 1.1 mg/dL Aspartate Amino Transf (AST/SGOT) 56 U/L Alanine Aminotransferase (ALT/SGPT) 56 U/L Alkaline Phosphatase 84 U/L Total Protein 7.0 g/dL Albumin 2.4 g/dL Globulin 4.6 Albumin/Globulin Ratio 0.521 Current Medications Medications (Trade) Dose Ordered Sig/Estuardo Route PRN Reason Start Time Stop Time Status Last Admin Dose Admin Enoxaparin Sodium (Lovenox) 40 mg DAILY SQ 08/31/20 09:00 09/30/20 08:59 08/31/20 09:33 Remdesivir 200 mg/ Sodium Chloride 140 ml @ 120.69 mls/ hr OT IV 08/31/20 09:30 08/31/20 10:40 DC 08/31/20 09:38 Lorazepam (Ativan) 1 mg Q3HR PRN IV ANXIETY 08/31/20 05:00 09/30/20 04:59 09/01/20 06:00 Azithromycin 500 mg/Sodium Chloride 250 ml @ 175 mls/hr Q24HRS IV 08/31/20 05:00 09/04/20 08:00 09/01/20 05:00 Ceftriaxone Sodium 1000 mg/ Sodium Chloride 100 ml @ 100 mls/hr Q24HRS IV 08/31/20 05:00 09/30/20 04:59 09/01/20 05:00 Lorazepam (Ativan) 1 mg STAT STAT IV 08/31/20 05:16 08/31/20 08:31 DC 08/31/20 05:34 Sodium Chloride 100 ml @ ud STK-MED ONCE IV 08/31/20 05:18 08/31/20 05:21 DC Ceftriaxone Sodium (Rocephin) 1,000 mg STK-MED ONCE .ROUTE 08/31/20 05:19 08/31/20 05:21 DC Sodium Chloride 500 ml @ ud STK-MED ONCE IV 08/31/20 05:37 08/31/20 05:40 DC Morphine Sulfate (Morphine Sulfate) 0.5 mg STAT ONCE IV 08/31/20 06:15 08/31/20 08:44 DC 08/31/20 06:15 Albuterol/ Ipratropium (Duo 0.5-3(2.5) Mg/3 ml) 3 ml RTQ6H IH 08/31/20 08:00 09/30/20 07:59 08/31/20 16:30 Albuterol Sulfate (Ventolin) 2.5 mg RTQ4 PRN IH WHEEZING 08/31/20 08:00 09/30/20 07:59 Furosemide (Lasix) 40 mg STAT STAT IV 08/31/20 07:55 08/31/20 08:44 DC 08/31/20 08:08 Morphine Sulfate (Morphine Sulfate) 0.5 mg OT STAT IV 08/31/20 07:56 08/31/20 08:44 DC 08/31/20 08:25 Lorazepam (Ativan) 0.5 mg STAT STAT IV 08/31/20 07:56 08/31/20 08:43 DC 08/31/20 08:23 Sodium Chloride 250 ml @ ud STK-MED ONCE IV 08/31/20 08:03 08/31/20 08:05 DC Sodium Chloride 100 ml @ ud STK-MED ONCE IV 08/31/20 09:34 08/31/20 09:36 DC Remdesivir 100 mg/ Sodium Chloride 120 ml @ 111.111 mls/hr Q24HRS IV 09/01/20 09:00 10/01/20 08:59 Aspirin (Aspirin) 81 mg DAILY PO 09/01/20 09:00 10/01/20 08:59 Famotidine (Pepcid) 20 mg BID PO 08/31/20 21:00 09/30/20 20:59 08/31/20 20:46 Ascorbic Acid (Vitamin C) 500 mg BID PO 08/31/20 21:00 09/30/20 20:59 08/31/20 21:00 Zinc Sulfate (Zinc Sulfate) 220 mg DAILY PO 08/31/20 21:00 09/30/20 20:59 08/31/20 21:00 Guaifenesin (Robitussin Dm) 5 ml Q4HR PRN PO COUGH 09/01/20 01:30 10/01/20 01:29 Morphine Sulfate (Morphine Sulfate) 2 mg STK-MED ONCE .ROUTE 09/01/20 03:32 09/01/20 03:34 DC Morphine Sulfate (Morphine Sulfate) 0.5 mg STAT STAT IV 09/01/20 03:33 09/01/20 03:35 DC 09/01/20 03:33 Sodium Chloride 100 ml @ ud STK-MED ONCE IV 09/01/20 05:28 09/01/20 05:30 DC Sodium Chloride 250 ml @ ud STK-MED ONCE IV 09/01/20 05:29 09/01/20 05:30 DC Ceftriaxone Sodium (Rocephin) 1,000 mg STK-MED ONCE .ROUTE 09/01/20 05:29 09/01/20 05:31 DC Benzonatate (Tessalon Perle) 100 mg Q2 PRN PO COUGH 09/01/20 06:00 09/01/20 05:50 DC Dexmedetomidine HCl 200 mcg/ Sodium Chloride 50 ml @ 0 mls/hr IV 09/01/20 06:00 10/01/20 05:59 Sodium Chloride 250 ml @ ud STK-MED ONCE IV 09/01/20 05:37 09/01/20 05:39 DC Benzonatate (Tessalon Perle) 200 mg TID PRN PO COUGH 09/01/20 06:00 10/01/20 05:59 09/01/20 06:00 Acetaminophen/ Hydrocodone Bitart ([place] 5mg) 1 ea TID PRN PO PAIN 4 - 6 09/01/20 06:00 10/01/20 05:59 Assessment/Plan Assessment/Plan Assessment/Plan Pt is a 54 y/o M with PMHx of HTN, HLD, obesity, and anxiety. He was admitted the morning of 08/31 as a transfer from OSH for acute hypoxemic respiratory failure and COVID-19. He was started on full spectrum treatment for COVID-19 with IV Decadron, Azithromycin, Remdesivir, CCP, Zinc, and Vitamin C. On arrival to this facility, he was in mild to moderate respiratory distress and required continuous CPAP to maintain Oxygenation. He remained relatively stable throughout 08/31, but started becoming more fatigued the evening of 08/31, and was moved to the ICU for closer monitoring. In the ICU, he was continued on CPAP in an effort to avoid intubation. However, he continued to have difficulty with NIPPV and was frequently dyssynchronous, causing further desaturations. He was also noted to have Sub q emphysema in his chest and neck, which was concerning for barotrauma due to continued dyssynchrony. The morning of 09/01, he was noted to be in worsened respiratory distress and there was concern for impending respiratory collapse due to fatigue. The patient and I discussed intubation and he agreed to be electively intubated before he decompensated completely. The on- call [employer] SUPER[employer]OR was called and the patient was subsequently intubated without complication. He was started on Propofol and fentanyl drips and paralyzed with IV vecuronium pushes. He has tolerated mechanical ventilation rather well and his O2 sats and PaO2 have improved markedly. Prior to intubation his ABG showed normal pH and a PaO2 in the 50's. His PaO2 improved to 70's within the hour, and was 150's on his most recent ABG the evening of 09/01. Of note, I did discuss the possibility of prolonged intubation, need for tracheostomy, and whether this is something that he would want done. He agreed that tracheostomy and long-term vent weaning is something that he would be ok with if it came down to it. Since intubation, he has improved markedly. He was continued on treatment for COVID with Remdesivir, steroids, and azithromycin and has completed his courses of each of these. His inflammtory markers have been downtrending with the exception of D-dimer which is uptrending slowly. His WBC have been gradually trending down, however, so this is promising. # COVID-19 Pneumonia # Acute Hypoxemic Respiratory Failure # Need for Mechanical Ventilation # Pneumomediastinum without pneumothorax # Leukocytosis # HTN # HLD # Anxiety PLAN: - continue mechanical ventilation. - TeleMed Line Director for assistance with vent management; Pt is gradually weaning down - Keep Pplat < 30 to limit risk of pneumothorax and barotrauma. - If patient decompensates and becomes markedly hypoxemia and/or hypotension, think Tension Pneumo and perform emergent needle decompression - continue Zinc, and Vitamin C, IV Decadron, and Azithro - Pt has completed his course of Remdesivir. Will discontinue - s/p 1u CCP - Continue Rocephin for now as procal is still > 0.25. - continue Propofol/Fentanyl for sedation/analgesia; precedex is available for backup sedation if needed - continue IV Vecuronium 15mg q1h + IV Vec 2mg q30min PRN - continue ASA 81 - trend COVID markers q48h - CXR q48h and PRN - start TF per dietary rec's Sedation: propofol/precedex Analgesia: Fent VTE ppx: Lovenox GI ppx: Pepcid Diet: TF per dietary recs CODE: river guide Spent: > 40 minutes between evaluation, coordination of care, and documentation JAMAICA DE LA PAZ MD Sep 04, 2020 23:49
[2020-09-05] VITALS (79 sets, daily range): BP systolic 105–161; BP diastolic 57–97
[2020-09-05] MEDS: DIPRIVAN IV PRN ×6 (00:43→20:00)
[2020-09-05] MEDS: NORCURON IV PRN ×7 (00:44→20:20)
[2020-09-05] MEDS: DUO 0.5-3(2.5) MG/3 ML IH SCH ×2 (04:09→15:33)
[2020-09-05 04:43] LABS: BASOPHIL % 0.1 % (0.0-0.2); LYMPHOCYTES # 0.66 10^3/uL1 (1.0-4.8); LYMPHOCYTES % 3.5 % (24.0-44.0); MEAN CORP HGB 31.7 pg (26-34); MONOCYTES # 0.5 10^3/uL (0.3-0.8); MONOCYTES % 2.8 % (5.0-12.0); NEUTROPHIL # 17.7 10^3/uL (1.8-7.7); NEUTROPHILS % 92.7 % (41.0-85.0); PLATELET COUNT 180 10^3/uL (150-400); RED CELL DISTRIBUTION WIDTH 12.6 % (11.5-14.5)
[2020-09-05] MEDS: ROCEPHIN 1,000 MG in NS 100ML 100 ML IV SCH (04:49)
[2020-09-05 04:58] LABS: CALCIUM 7.7 mg/dL (8.4-10.5); CARBON DIOXIDE 29.9 mmol/L (20.0-32)
[2020-09-05] MEDS: ASPIRIN PO SCH (08:00)
[2020-09-05] MEDS: VITAMIN C PO SCH ×2 (08:00→21:00)
[2020-09-05] MEDS: PEPCID IV SCH ×2 (08:00→20:25)
[2020-09-05] MEDS: LOVENOX SQ SCH ×2 (08:01→20:25)
[2020-09-05] MEDS: DEXAMETHASONE 10 MG/ML VIAL IV SCH (08:02)
[2020-09-05] MEDS: ZINC SULFATE PO SCH (08:06)
[2020-09-05 08:35] LABS: ABG PCO2 50.4 mmHg (35.0-45.0); BE(B) 3.6 mmol/L (-2.0-2.0); HCO3act 29.8 mmol/L (22.0-26.0); pO2 59.2 mmHg (80.0-100.0)
[2020-09-05] MEDS: REMDESIVIR (EUA) 100 MG in NS 100ML 100 ML IV SCH (08:39)
[2020-09-05] MEDS: MAXIPIME 2 GM in NS 100ML 100 ML IV SCH ×2 (10:04→16:31)
[2020-09-05] MEDS: VANCOMYCIN HCL 1.5 GM in NS 250ML 300 ML IV SCH ×3 (11:03→23:00)
--- NOTE | 2020-09-05 11:56 | TELE.CONS ---
Consultation Reason for Consult: Reason for Consultation: COVID ARF; intubated Review of Systems ENT: Other Other Unable to obtain due to intubated state Allergies: Coded Allergies: Sulfa (Sulfonamide Antibiotics) (Verified Allergy, Mild, 08/31/20) Scheduled Atorvastatin 10MG (Lipitor 10MG), 1 TAB PO HS, (Reported) Bisoprolol Fumarate/Hctz (Bisoprolol-Hctz 5-6.25 Mg Tab), 1 TAB PO DAILY, (Reported) Temazepam (Restoril), 1 CAP PO HS, (Reported) VITALS REVIEW VITALS Vital Sign - Last 24 Hours 08/31/20 08/31/20 08/31/20 08/31/20 00:59 00:59 00:59 01:31 Temp 99.3 99.1 99.1 99.1 Pulse 96 96 96 89 Resp 22 22 22 22 B/P (MAP) 154/64 (94) 133/78 (96) Pulse Ox 85 85 85 O2 Delivery Non-Rebreather Non-Rebreather O2 Flow Rate 15.00 15.00 08/31/20 08/31/20 08/31/20 08/31/20 02:09 03:00 03:05 03:25 Temp 99.2 99.2 99.6 Pulse 85 86 102 Resp 23 22 22 B/P (MAP) 130/82 (98) 135/75 (95) 159/87 (111) Pulse Ox 90 91 90 O2 Delivery Non-Rebreather Bi-pap Non-Rebreather Non-Rebreather O2 Flow Rate 15.00 100.00 15.00 15.00 08/31/20 08/31/20 08/31/20 08/31/20 04:27 04:48 04:56 06:14 Temp 99.3 Pulse 92 114 85 Resp 30 42 22 B/P (MAP) 136/82 (100) Pulse Ox 86 88 90 O2 Delivery Comfort Ryne S/T Non-Rebreather S/T O2 Flow Rate 60.00 15.00 FiO2 100 100 100 08/31/20 08/31/20 08/31/20 08/31/20 08:08 08:30 08:54 08:54 Pulse 111 114 Resp 39 44 B/P (MAP) 141/91 Pulse Ox 91 91 O2 Delivery Bi-pap 08/31/20 08/31/20 08/31/2020/20 08:57 08:57 09:03 11:27 Temp 100.0 Pulse 119 110 103 104 Resp 44 45 60 36 B/P (MAP) 141/91 (108) Pulse Ox 90 87 89 94 O2 Delivery CPAP CPAP FiO2 100 100 08/31/20 08/31/20 08/31/20 08/31/20 11:49 14:30 15:23 15:45 Temp 98.5 Pulse 111 92 91 Resp 58 49 49 B/P (MAP) 119/85 (96) Pulse Ox 89 90 90 O2 Delivery CPAP FiO2 100 08/31/20 08/31/20 08/31/20 08/31/20 15:52 16:00 16:00 16:30 Temp 97.3 98.0 Pulse 93 85 92 Resp 44 55 40 B/P (MAP) 145/95 (112) 128/78 (95) Pulse Ox 89 91 91 O2 Delivery Bi-pap 08/31/20 08/31/20 08/31/20 08/31/20 16:34 16:45 16:49 17:00 Pulse 86 86 98 89 Resp 62 34 42 B/P (MAP) 127/82 (97) Pulse Ox 90 89 88 93 08/31/20 08/31/20 08/31/20 08/31/20 17:01 17:02 17:02 17:04 Pulse 93 99 101 87 Resp 39 39 38 37 B/P (MAP) 128/78 (95) Pulse Ox 92 91 91 90 O2 Delivery CPAP FiO2 100 08/31/20 08/31/20 08/31/20 08/31/20 17:15 17:19 17:30 17:34 Pulse 83 89 91 88 Resp 78 34 32 B/P (MAP) 136/109 (118) 134/78 (96) Pulse Ox 90 87 89 88 08/31/20 08/31/20 08/31/20 08/31/20 17:45 17:49 18:00 18:02 Pulse 89 87 89 92 Resp 69 54 47 B/P (MAP) 134/91 (105) Pulse Ox 86 89 88 89 O2 Delivery CPAP FiO2 100 08/31/20 08/31/20 08/31/20 08/31/20 18:04 18:15 18:19 19:34 Pulse 84 86 77 82 Resp 43 26 39 49 B/P (MAP) 138/68 (91) 125/58 (80) 117/74 (88) Pulse Ox 88 91 90 93 08/31/20 08/31/20 08/31/20 08/31/20 19:45 19:49 20:00 20:00 Pulse 74 69 97 Resp 41 42 57 B/P (MAP) 118/69 (85) Pulse Ox 94 92 86 O2 Delivery C-Pap 08/31/20 08/31/20 08/31/20 08/31/20 20:04 20:15 20:19 20:30 Pulse 87 71 81 81 Resp 37 28 41 B/P (MAP) 121/77 (92) 124/69 (87) Pulse Ox 88 93 91 91 08/31/20 08/31/20 08/31/20 08/31/20 20:34 20:45 20:49 20:50 Temp 97.0 Pulse 78 76 84 Resp 43 48 B/P (MAP) 124/69 (87) 115/79 (91) Pulse Ox 90 93 91 08/31/20 08/31/20 08/31/20 08/31/20 21:00 21:04 21:15 21:19 Pulse 82 88 86 86 Resp 47 57 26 40 B/P (MAP) 126/84 (98) 138/72 (94) Pulse Ox 91 87 89 87 08/31/20 08/31/20 08/31/20 08/31/20 21:30 21:34 21:45 21:45 Pulse 99 92 88 98 Resp 42 33 83 B/P (MAP) 142/85 (104) Pulse Ox 88 89 91 89 O2 Delivery CPAP FiO2 100 08/31/20 08/31/20 08/31/20 09/01/20 22:44 22:46 22:46 00:00 Temp 98.4 Pulse 88 88 88 Resp 33 33 33 Pulse Ox 90 90 91 09/01/20 09/01/20 09/01/20 09/01/20 00:00 00:30 04:00 04:00 Temp 98.1 Pulse 83 Resp 41 Pulse Ox 92 O2 Delivery C-Pap CPAP C-Pap FiO2 100 09/01/20 09/01/20 09/01/20 09/01/20 04:00 04:09 04:15 04:23 Pulse 73 94 86 76 Resp 43 36 27 50 B/P (MAP) 133/71 (91) 104/49 (67) Pulse Ox 92 83 89 91 09/01/20 09/01/20 09/01/20 09/01/20 04:30 04:39 04:45 04:54 Pulse 82 96 94 Resp 42 48 B/P (MAP) 131/87 (102) 105/43 (63) Pulse Ox 91 82 86 85 09/01/20 09/01/20 09/01/20 09/01/20 05:00 05:00 05:08 05:15 Pulse 84 103 110 99 Resp 40 47 73 46 B/P (MAP) 120/75 (90) Pulse Ox 93 85 83 90 O2 Delivery CPAP FiO2 100 09/01/20 09/01/20 09/01/20 09/01/20 05:23 05:30 05:38 05:45 Pulse 102 88 94 88 Resp 28 33 47 B/P (MAP) 110/66 (81) 118/71 (87) Pulse Ox 79 82 88 91 09/01/20 09/01/20 09/01/20 09/01/20 05:53 07:15 09:36 09:36 Pulse 98 111 107 Resp 45 45 B/P (MAP) 116/76 (89) Pulse Ox 87 91 90 O2 Delivery C-Pap 09/01/20 09/01/20 09/01/20 09/01/20 09:37 10:47 11:00 11:48 Pulse 111 76 76 Resp 51 22 22 Pulse Ox 91 91 91 O2 Delivery CPAP Mechanical Ventilator FiO2 100 100 100 09/01/20 09/01/20 09/01/20 09/01/20 14:50 14:50 14:50 14:54 Pulse 74 74 76 74 Resp 22 22 22 22 Pulse Ox 94 94 91 94 FiO2 100 09/01/20 09/01/20 09/01/20 09/01/20 15:00 15:48 15:58 16:00 Pulse 102 73 75 Resp 25 24 B/P (MAP) 107/69 (82) Pulse Ox 91 95 95 O2 Delivery Mechanical Ventilator 09/01/20 09/01/20 09/01/20 09/01/20 16:01 16:04 16:07 16:10 Pulse 77 75 78 73 Resp 23 23 24 22 B/P (MAP) 104/66 (79) 102/63 (76) 104/58 (73) 102/62 (75) Pulse Ox 95 95 95 95 09/01/20 09/01/20 09/01/20 09/01/20 16:13 16:15 16:16 16:19 Pulse 72 77 77 77 Resp 21 23 23 22 B/P (MAP) 101/62 (75) 107/61 (76) 100/61 (74) Pulse Ox 95 95 95 96 09/01/20 09/01/20 09/01/20 09/01/20 16:22 16:25 16:28 16:30 Pulse 78 76 77 78 Resp 23 24 23 23 B/P (MAP) 100/60 (73) 105/61 (76) 101/65 (77) Pulse Ox 95 95 95 95 09/01/20 09/01/20 09/01/20 09/01/20 16:31 16:34 16:37 16:56 Pulse 77 77 79 73 Resp 24 24 23 22 B/P (MAP) 102/61 (75) 101/64 (76) 98/62 (74) Pulse Ox 95 96 95 93 FiO2 100 09/01/20 09/01/20 09/01/20 09/01/20 19:13 19:15 19:16 19:19 Pulse 67 79 81 73 Resp 22 24 25 B/P (MAP) 106/72 (83) 112/67 (82) 105/60 (75) Pulse Ox 96 85 91 92 09/01/20 09/01/20 09/01/20 09/01/20 19:22 19:25 19:28 19:30 Pulse 74 71 73 73 Resp 24 23 23 24 B/P (MAP) 105/60 (75) 106/61 (76) 106/62 (77) Pulse Ox 91 91 91 92 09/01/20 09/01/20 09/01/20 09/01/20 19:31 19:34 19:37 19:40 Pulse 72 72 72 71 Resp 23 23 23 23 B/P (MAP) 106/62 (77) 107/64 (78) 102/60 (74) 105/61 (76) Pulse Ox 92 92 92 92 09/01/20 09/01/20 09/01/20 09/01/20 19:43 19:45 19:46 19:49 Pulse 72 71 71 72 Resp 22 23 24 24 B/P (MAP) 108/59 (75) 107/61 (76) 106/61 (76) Pulse Ox 92 92 92 92 09/01/20 09/01/20 09/01/20 09/01/20 19:52 19:55 19:58 20:00 Pulse 72 72 73 72 Resp 23 23 23 26 B/P (MAP) 104/64 (77) 104/63 (77) 100/62 (75) Pulse Ox 92 92 91 92 FiO2 100 09/01/20 09/01/20 09/01/20 09/01/20 20:00 20:13 20:15 20:16 Pulse 72 73 73 Resp 23 23 23 B/P (MAP) 105/61 (76) 106/63 (77) Pulse Ox 90 90 90 O2 Delivery Mechanical Ventilator 09/01/20 09/01/20 09/01/20 09/01/20 20:19 20:22 20:25 20:28 Pulse 73 72 73 72 Resp 23 23 B/P (MAP) 105/63 (77) 104/62 (76) 106/61 (76) 102/62 (75) Pulse Ox 90 91 90 91 09/01/20 09/01/20 09/01/20 09/01/20 20:30 20:31 20:34 20:37 Pulse 71 72 69 73 Resp 23 23 22 22 B/P (MAP) 107/66 (80) 103/55 (71) 99/57 (71) Pulse Ox 91 91 90 90 09/01/20 09/01/20 09/01/20 09/01/20 20:40 20:43 20:45 20:46 Pulse 71 70 77 72 Resp 22 22 22 22 B/P (MAP) 105/61 (76) 103/62 (76) 111/64 (80) Pulse Ox 90 90 91 92 09/01/20 09/01/20 09/01/20 09/01/20 20:49 20:52 20:55 20:58 Pulse 73 73 67 74 Resp 22 22 22 23 B/P (MAP) 104/61 (75) 108/62 (77) 111/63 (79) 108/63 (78) Pulse Ox 92 92 93 92 09/01/20 09/01/20 09/01/20 09/01/20 21:10 21:11 21:12 21:12 Pulse 74 74 74 74 Resp 22 22 22 22 Pulse Ox 91 91 91 91 FiO2 100 09/01/20 09/01/20 09/01/20 09/01/20 21:46 21:49 21:52 21:55 Pulse 80 80 79 79 Resp 22 22 22 22 B/P (MAP) 106/62 (77) 110/63 (79) 109/63 (78) 110/58 (75) Pulse Ox 91 92 91 91 09/01/20 09/01/20 09/01/20 09/01/20 21:58 22:00 22:01 22:04 Pulse 79 78 80 80 Resp 22 22 22 23 B/P (MAP) 108/59 (75) 108/64 (79) 106/60 (75) Pulse Ox 92 92 92 92 09/01/20 09/01/20 09/01/20 09/01/20 22:07 22:10 22:13 22:15 Pulse 81 79 77 80 Resp 25 24 24 23 B/P (MAP) 107/61 (76) 107/63 (78) 110/65 (80) Pulse Ox 92 92 92 92 09/01/20 09/01/20 09/01/20 09/01/20 22:16 22:19 22:22 22:25 Pulse 79 80 80 77 Resp 24 25 24 25 B/P (MAP) 106/60 (75) 111/61 (78) 109/62 (78) 109/61 (77) Pulse Ox 92 92 92 92 09/01/20 09/01/20 09/01/20 09/01/20 22:28 22:30 22:31 22:34 Pulse 77 80 78 78 Resp 24 24 24 23 B/P (MAP) 110/67 (81) 106/63 (77) 110/63 (79) Pulse Ox 92 92 92 92 09/01/20 09/01/20 09/01/20 09/01/20 23:10 23:30 23:31 23:34 Pulse 76 77 74 76 Resp 22 22 23 26 B/P (MAP) 113/62 (79) 107/62 (77) Pulse Ox 92 92 92 92 FiO2 100 09/01/20 09/01/20 09/01/20 09/01/20 23:37 23:40 23:43 23:45 Pulse 76 76 73 75 Resp 26 26 26 27 B/P (MAP) 109/61 (77) 109/58 (75) 112/62 (79) Pulse Ox 92 93 93 93 09/01/20 09/01/20 09/01/20 09/01/20 23:46 23:49 23:52 23:55 Pulse 74 74 83 72 Resp B/P (MAP) 112/59 (76) 113/66 (82) 116/67 (83) 117/66 (83) Pulse Ox 93 93 94 93 09/01/20 09/02/20 09/02/20 09/02/20 23:58 00:00 00:00 00:13 Pulse 78 80 75 Resp B/P (MAP) 118/65 (82) 114/66 (82) Pulse Ox 93 93 93 O2 Delivery Mechanical Ventilator FiO2 100 09/02/20 09/02/20 09/02/20 09/02/20 00:15 00:16 00:19 00:22 Pulse 76 77 75 75 Resp B/P (MAP) 118/65 (82) 114/67 (83) 119/63 (81) Pulse Ox 93 93 92 93 09/02/20 09/02/20 09/02/20 09/02/20 00:25 00:28 00:30 00:31 Pulse 76 75 76 77 Resp B/P (MAP) 117/68 (84) 115/65 (82) 115/64 (81) Pulse Ox 93 92 92 92 09/02/20 09/02/20 09/02/20 09/02/20 00:34 00:37 00:40 00:43 Pulse 77 80 79 80 Resp B/P (MAP) 112/62 (79) 110/63 (79) 110/63 (79) 107/64 (78) Pulse Ox 93 92 92 92 09/02/20 09/02/20 09/02/20 09/02/20 00:45 00:46 00:49 00:52 Pulse 82 81 79 80 Resp B/P (MAP) 108/63 (78) 109/61 (77) 107/67 (80) Pulse Ox 92 92 92 93 09/02/20 09/02/20 09/02/20 09/02/20 00:55 00:58 01:13 01:15 Pulse 80 77 80 73 Resp 24 25 35 22 B/P (MAP) 109/65 (80) 109/63 (78) 114/60 (78) Pulse Ox 92 93 88 91 09/02/20 09/02/20 09/02/20 09/02/20 01:16 01:19 01:22 01:25 Pulse 76 77 75 74 Resp 22 B/P (MAP) 107/64 (78) 108/59 (75) 110/63 (79) 109/62 (78) Pulse Ox 92 92 92 93 09/02/20 09/02/20 09/02/20 09/02/20 01:28 01:30 01:31 01:34 Pulse 73 73 75 77 Resp 22 B/P (MAP) 110/61 (77) 109/63 (78) 107/61 (76) Pulse Ox 92 92 92 93 09/02/20 09/02/20 09/02/20 09/02/20 01:37 01:40 01:43 01:45 Pulse 76 76 75 74 Resp 22 B/P (MAP) 105/64 (78) 105/62 (76) 104/63 (77) Pulse Ox 93 92 92 92 09/02/20 09/02/20 09/02/20 09/02/20 01:46 01:49 01:52 01:55 Pulse 75 77 79 75 Resp 23 B/P (MAP) 113/62 (79) 108/64 (79) 107/61 (76) 107/62 (77) Pulse Ox 92 93 93 93 09/02/20 09/02/20 09/02/20 09/02/20 01:58 02:20 02:25 02:28 Pulse 76 79 74 71 Resp 22 B/P (MAP) 110/61 (77) 104/61 (75) 104/59 (74) Pulse Ox 92 93 93 93 FiO2 100 09/02/20 09/02/20 09/02/20 09/02/20 02:30 02:31 02:34 02:37 Pulse 73 70 69 70 Resp 22 B/P (MAP) 104/59 (74) 103/60 (74) 102/58 (73) Pulse Ox 93 93 93 93 11/2209/02/20 09/02/20 09/02/20 02:40 02:43 02:45 02:46 Pulse 70 73 73 71 Resp B/P (MAP) 105/60 (75) 103/59 (74) 102/60 (74) Pulse Ox 93 93 93 93 09/02/20 09/02/20 09/02/20 09/02/20 02:49 02:52 02:55 02:58 Pulse 72 74 75 72 Resp B/P (MAP) 105/60 (75) 101/59 (73) 102/56 (71) 103/55 (71) Pulse Ox 93 93 93 93 09/02/20 09/02/20 09/02/20 09/02/20 03:00 03:01 03:04 03:07 Pulse 73 71 69 70 Resp B/P (MAP) 102/58 (73) 100/57 (71) 99/57 (71) Pulse Ox 93 93 93 93 09/02/20 09/02/20 09/02/20 09/02/20 03:10 03:13 03:22 03:25 Pulse 70 71 71 69 Resp B/P (MAP) 99/59 (72) 102/56 (71) 100/60 (73) 102/60 (74) Pulse Ox 93 93 93 93 09/02/20 09/02/20 09/02/20 09/02/20 03:28 03:29 03:31 03:34 Pulse 69 71 70 69 Resp B/P (MAP) 102/58 (73) 103/56 (72) 101/60 (74) Pulse Ox 93 93 93 93 09/02/20 09/02/20 09/02/20 09/02/20 03:37 03:40 03:43 03:44 Pulse 71 69 72 70 Resp B/P (MAP) 105/61 (76) 105/54 (71) 102/58 (73) Pulse Ox 93 93 93 92 09/02/20 09/02/20 09/02/20 09/02/20 03:46 03:49 03:52 03:55 Pulse 69 71 74 75 Resp B/P (MAP) 104/59 (74) 101/56 (71) 104/58 (73) 102/59 (73) Pulse Ox 93 93 93 93 09/02/20 09/02/20 09/02/20 09/02/20 03:58 03:59 04:00 04:00 Pulse 72 76 80 Resp B/P (MAP) 104/56 (72) Pulse Ox 92 93 93 O2 Delivery Mechanical Ventilator FiO2 100 09/02/20 09/02/20 09/02/20 09/02/20 04:01 04:04 04:04 04:08 Pulse 75 87 Resp 22 B/P (MAP) 103/61 (75) 107/56 (73) 107/56 (73) Pulse Ox 92 90 90 94 09/02/20 09/02/20 09/02/20 09/02/20 04:08 04:09 04:09 04:22 Temp 98.8 Pulse 87 Resp 22 B/P (MAP) 123/65 (84) Pulse Ox 94 92 92 09/02/20 09/02/20 09/02/20 09/02/20 04:24 04:28 04:30 04:31 Temp 98.8 98.6 98.6 98.6 Pulse 123 120 126 115 Resp B/P (MAP) 128/73 (91) 121/77 (92) 129/70 (89) Pulse Ox 97 98 98 98 09/02/20 09/02/20 09/02/20 09/02/20 04:34 04:37 04:40 04:43 Temp 98.6 98.6 98.6 98.6 Pulse 114 105 97 94 Resp B/P (MAP) 127/83 (98) 127/82 (97) 118/63 (81) 115/64 (81) Pulse Ox 97 98 97 97 09/02/20 09/02/20 09/02/20 09/02/20 04:45 04:46 04:49 04:49 Temp 98.6 98.6 98.6 Pulse 94 92 87 118 Resp B/P (MAP) 118/72 (87) 139/87 (104) Pulse Ox 97 96 94 98 FiO2 100 09/02/20 09/02/20 09/02/20 09/02/20 04:52 04:55 04:58 05:07 Temp 98.6 98.6 98.6 98.6 Pulse 122 116 104 90 Resp 34 36 32 28 B/P (MAP) 144/95 (111) 130/74 (92) 123/66 (85) 113/67 (82) Pulse Ox 98 98 98 97 09/02/20 09/02/20 09/02/20 09/02/20 05:10 05:13 05:15 05:16 Temp 98.6 98.6 98.6 98.6 Pulse 105 99 122 104 Resp B/P (MAP) 130/76 (94) 129/77 (94) 129/72 (91) Pulse Ox 97 97 98 97 09/02/20 09/02/20 09/02/20 09/02/20 05:19 05:22 05:25 05:28 Temp 98.6 98.6 98.6 98.6 Pulse 104 112 113 95 Resp B/P (MAP) 125/74 (91) 140/95 (110) 136/70 (92) 119/62 (81) Pulse Ox 98 98 98 97 09/02/20 09/02/20 09/02/20 09/02/20 05:30 05:31 05:34 05:37 Temp 98.6 98.6 98.6 98.6 Pulse 93 91 92 93 Resp B/P (MAP) 113/65 (81) 113/62 (79) 118/66 (83) Pulse Ox 97 97 97 97 09/02/20 09/02/20 09/02/20 09/02/20 05:40 05:43 05:45 05:46 Temp 98.6 98.6 98.6 98.6 Pulse 105 103 96 95 Resp B/P (MAP) 125/74 (91) 136/83 (100) 116/66 (83) Pulse Ox 98 98 98 98 09/02/20 09/02/20 09/02/20 09/02/20 05:49 05:52 07:00 07:00 Temp 98.6 98.6 Pulse 90 91 80 Resp B/P (MAP) 116/64 (81) 111/57 (75) Pulse Ox 97 97 93 O2 Delivery Mechanical Ventilator FiO2 100 09/02/20 09/02/20 09/02/20 09/02/20 07:21 07:21 07:28 07:30 Temp 99.0 99.0 Pulse 98 98 83 87 Resp B/P (MAP) 112/65 (81) Pulse Ox 97 97 97 97 FiO2 100 09/02/20 09/02/20 09/02/20 09/02/20 07:31 07:34 07:37 07:40 Temp 99.0 99.0 99.0 99.1 Pulse 80 80 80 78 Resp 23 B/P (MAP) 106/60 (75) 108/62 (77) 107/56 (73) 112/65 (81) Pulse Ox 97 97 97 97 09/02/20 09/02/20 09/02/20 09/02/20 07:43 07:45 07:46 07:49 Temp 99.1 99.1 99.1 99.1 Pulse 81 78 85 84 Resp B/P (MAP) 106/58 (74) 108/60 (76) 107/60 (76) Pulse Ox 97 97 97 97 09/02/20 09/02/20 09/02/20 09/02/20 07:52 07:55 07:58 08:00 Temp 99.1 99.1 99.3 99.1 Pulse 83 100 94 87 Resp 34 43 26 45 B/P (MAP) 106/59 (75) 113/71 (85) 107/67 (80) Pulse Ox 97 97 97 97 09/02/20 09/02/20 09/02/20 09/02/20 08:01 08:04 08:07 08:10 Temp 99.1 99.3 99.1 99.1 Pulse 84 84 83 83 Resp 36 36 25 28 B/P (MAP) 105/57 (73) 99/60 (73) 103/62 (76) 101/51 (68) Pulse Ox 97 96 97 96 09/02/20 09/02/20 09/02/20 09/02/20 08:13 08:30 08:31 08:34 Temp 99.1 99.3 99.3 99.3 Pulse 84 84 83 82 Resp 24 B/P (MAP) 102/53 (69) 104/59 (74) 103/56 (72) Pulse Ox 96 96 96 96 11/22/09/02/20 09/02/20 09/02/20 08:37 08:40 08:43 08:45 Temp 99.3 99.3 99.3 99.3 Pulse 80 84 84 83 Resp B/P (MAP) 97/54 (68) 103/54 (70) 97/58 (71) Pulse Ox 96 96 96 96 09/02/20 09/02/20 09/02/20 09/02/20 08:46 08:49 08:52 08:55 Temp 99.3 99.3 99.3 99.3 Pulse 82 83 83 84 Resp B/P (MAP) 97/55 (69) 97/55 (69) 100/58 (72) 96/59 (71) Pulse Ox 96 96 96 96 09/02/20 09/02/20 09/02/20 09/02/20 08:58 09:00 09:01 09:04 Temp 99.3 99.3 99.5 99.3 Pulse 83 90 95 98 Resp B/P (MAP) 102/57 (72) 130/76 (94) 133/81 (98) Pulse Ox 96 97 97 97 09/02/20 09/02/20 09/02/20 09/02/20 09:06 09:06 09:07 09:10 Temp 99.3 99.3 Pulse 99 98 99 95 Resp B/P (MAP) 135/76 (95) 136/79 (98) Pulse Ox 97 97 97 98 09/02/20 09/02/20 09/02/20 09/02/20 09:13 09:15 09:15 09:16 Temp 99.3 99.3 99.3 99.3 Pulse 85 102 102 84 Resp B/P (MAP) 145/91 (109) 131/78 (95) Pulse Ox 98 98 98 97 09/02/20 09/02/20 09/02/20 09/02/20 09:16 09:30 09:32 09:45 Temp 99.3 99.1 99.1 99.3 Pulse 84 82 84 80 Resp B/P (MAP) 131/78 (95) 114/63 (80) Pulse Ox 97 97 98 98 09/02/20 09/02/20 09/02/2009/02/20 09:47 09:59 10:00 10:02 Temp 99.3 99.3 99.3 Pulse 79 83 81 80 Resp B/P (MAP) 114/62 (79) 110/61 (77) Pulse Ox 98 98 98 98 FiO2 100 09/02/20 09/02/20 09/02/20 09/02/20 10:15 10:15 10:17 10:17 Temp 99.3 99.3 99.3 99.3 Pulse 84 84 83 83 Resp B/P (MAP) 114/61 (78) 114/61 (78) Pulse Ox 97 97 98 98 09/02/20 09/02/20 09/02/20 09/02/20 10:30 10:30 10:32 10:45 Temp 99.3 99.3 99.3 Pulse 84 82 85 Resp B/P (MAP) 111/61 (78) Pulse Ox 97 97 97 FiO2 90 09/02/20 09/02/20 09/02/20 09/02/20 10:47 11:00 11:02 11:15 Temp 99.3 99.3 99.5 99.5 Pulse 84 89 87 91 Resp B/P (MAP) 108/60 (76) 111/61 (78) Pulse Ox 97 97 96 95 09/02/20 09/02/20 09/02/20 09/02/20 11:17 11:26 11:26 11:30 Temp 99.5 Pulse 87 80 80 Resp B/P (MAP) 111/67 (82) Pulse Ox 95 93 93 O2 Delivery Mechanical Ventilator FiO2 100 90 09/02/20 09/02/20 09/02/20 09/02/20 11:30 11:32 11:39 11:45 Temp 99.5 99.5 99.5 Pulse 83 85 90 85 Resp B/P (MAP) 118/68 (85) Pulse Ox 96 95 97 97 FiO2 90 09/02/20 09/02/20 09/02/20 09/02/20 11:45 11:47 11:47 12:00 Temp 99.5 99.5 99.5 99.5 Pulse 85 89 89 84 Resp B/P (MAP) 126/69 (88) 126/69 (88) Pulse Ox 97 96 96 97 09/02/20 09/02/20 09/02/20 09/02/20 12:02 12:15 12:17 12:30 Temp 99.5 99.5 99.5 99.3 Pulse 83 81 82 86 Resp B/P (MAP) 121/68 (85) 120/67 (84) Pulse Ox 97 97 97 96 09/02/20 09/02/20 09/02/20 09/02/20 12:32 12:45 12:47 13:00 Temp 99.3 99.3 99.3 99.3 Pulse 81 82 79 82 Resp B/P (MAP) 116/71 (86) 113/70 (84) Pulse Ox 96 96 96 96 09/02/20 09/02/20 09/02/20 09/02/20 13:02 13:47 14:00 14:02 Temp 99.3 99.3 99.3 99.5 Pulse 81 75 79 73 Resp B/P (MAP) 111/65 (80) 113/66 (82) 113/65 (81) Pulse Ox 95 97 97 96 09/02/20 09/02/20 09/02/20 09/02/20 14:11 14:15 14:17 14:30 Temp 99.5 99.5 99.5 Pulse 78 80 76 81 Resp B/P (MAP) 119/71 (87) Pulse Ox 98 96 97 95 FiO2 90 09/02/20 09/02/20 09/02/20 09/02/20 14:32 14:45 14:47 15:00 Temp 99.5 99.7 99.7 99.7 Pulse 79 77 78 87 Resp B/P (MAP) 112/67 (82) 115/68 (84) Pulse Ox 96 96 96 09/02/20 09/02/20 09/02/20 09/02/20 15:02 15:15 15:17 15:30 Temp 99.7 99.7 99.7 99.7 Pulse 66 69 67 76 Resp B/P (MAP) 119/67 (84) 119/70 (86) Pulse Ox 93 96 96 97 09/02/20 09/02/20 09/02/20 09/02/20 15:32 15:45 15:47 15:48 Temp 99.7 99.7 99.7 Pulse 76 76 80 78 Resp B/P (MAP) 115/69 (84) 116/67 (83) Pulse Ox 97 97 97 96 09/02/20 09/02/20 09/02/20 09/02/20 15:48 15:51 16:00 16:02 Temp 99.9 99.9 Pulse 78 77 76 77 Resp B/P (MAP) 113/70 (84) Pulse Ox 96 97 97 97 FiO2 90 09/02/20 09/02/20 09/02/20 09/02/20 16:15 16:17 16:26 16:26 Temp 99.9 99.9 Pulse 79 79 80 Resp 09 23 27 B/P (MAP) 113/68 (83) Pulse Ox 97 97 93 O2 Delivery Mechanical Ventilator FiO2 90 09/02/20 09/02/20 09/02/20 09/02/20 16:30 16:45 16:47 17:00 Temp 100.0 100.0 100.0 100.0 Pulse 82 80 78 78 Resp B/P (MAP) 115/65 (82) Pulse Ox 97 97 97 97 09/02/20 09/02/20 09/02/20 09/02/20 17:02 17:15 17:17 17:29 Temp 100.0 100.2 100.2 Pulse 75 74 75 69 Resp 04 22 22 B/P (MAP) 120/73 (89) 116/73 (87) Pulse Ox 97 97 97 98 FiO2 90 09/02/20 09/02/20 09/02/20 09/02/20 17:30 17:30 17:32 17:45 Temp 100.2 100.2 100.4 Pulse 69 74 69 71 Resp B/P (MAP) 118/73 (88) Pulse Ox 98 97 97 97 O2 Delivery Mechanical Ventilator FiO2 90 09/02/20 09/02/20 09/02/20 09/02/20 17:47 18:00 18:02 18:15 Temp 100.4 100.4 100.4 100.4 Pulse 70 68 68 72 Resp B/P (MAP) 118/70 (86) 117/72 (87) Pulse Ox 97 98 98 98 09/02/20 09/02/20 09/02/20 09/02/20 18:17 18:47 19:02 19:17 Temp 100.4 100.4 100.4 100.4 Pulse 68 63 63 61 Resp 14 B/P (MAP) 117/71 (86) 119/74 (89) 117/76 (90) 121/77 (92) Pulse Ox 98 97 97 97 09/02/20 09/02/20 09/02/20 09/02/20 19:32 19:47 20:00 20:00 Temp 100.4 100.6 Pulse 61 60 62 Resp B/P (MAP) 121/72 (88) 117/73 (88) Pulse Ox 97 97 99 O2 Delivery Mechanical Ventilator 09/02/20 09/02/20 09/02/20 09/02/20 20:00 20:00 20:00 20:02 Temp 100.6 Pulse 60 57 57 63 Resp B/P (MAP) 116/70 (85) Pulse Ox 96 98 98 98 FiO2 90 90 09/02/20 09/02/20 09/02/20 09/02/20 20:17 20:32 20:47 21:02 Temp 100.6 100.6 100.6 100.6 Pulse 59 59 60 59 Resp B/P (MAP) 120/72 (88) 116/71 (86) 117/71 (86) 117/73 (88) Pulse Ox 98 98 98 98 09/02/20 09/02/20 09/02/20 09/02/20 21:17 21:32 21:47 22:02 Temp 100.8 100.8 100.8 100.8 Pulse 58 59 61 58 Resp B/P (MAP) 122/73 (89) 117/69 (85) 116/72 (87) 117/72 (87) Pulse Ox 98 97 97 97 09/02/20 09/02/20 09/02/20 09/02/20 22:17 22:30 22:37 22:47 Temp 100.8 100.6 100.4 Pulse 55 68 81 60 Resp B/P (MAP) 125/72 (89) 130/61 (84) 133/75 (94) Pulse Ox 98 96 75 97 FiO2 90 09/02/20 09/02/20 09/02/20 09/02/20 23:02 23:11 23:11 23:17 Temp 100.2 100.0 Pulse 65 68 63 Resp 22 B/P (MAP) 133/76 (95) 129/70 (89) Pulse Ox 100 96 100 O2 Delivery Mechanical Ventilator FiO2 90 09/02/20 09/02/20 09/03/20 09/03/20 23:32 23:47 00:02 00:17 Temp 100.0 100.0 100.0 100.0 Pulse 65 66 60 60 Resp 26 B/P (MAP) 120/62 (81) 112/66 (81) 118/69 (85) 118/74 (89) Pulse Ox 100 100 99 100 09/03/20 09/03/20 09/03/20 09/03/20 00:32 00:47 01:00 01:02 Temp 100.0 99.9 99.9 Pulse 59 59 62 58 Resp B/P (MAP) 117/72 (87) 116/66 (83) 118/66 (83) Pulse Ox 100 100 99 100 FiO2 90 09/03/20 09/03/20 09/03/20 09/03/20 01:17 01:32 02:02 02:17 Temp 99.9 99.9 99.9 99.9 Pulse 60 58 58 57 Resp B/P (MAP) 116/69 (85) 114/65 (81) 111/65 (80) 113/65 (81) Pulse Ox 100 100 99 100 09/03/20 09/03/20 09/03/20 09/03/20 02:32 02:47 03:00 03:00 Temp 99.9 99.9 Pulse 58 61 59 Resp B/P (MAP) 114/67 (83) 109/65 (80) Pulse Ox 100 99 100 O2 Delivery Mechanical Ventilator FiO2 90 09/03/20 09/03/20 09/03/20 09/03/20 03:00 03:00 03:00 03:02 Temp 99.9 Pulse 59 59 68 59 Resp 32 32 32 37 B/P (MAP) 130/72 (91) Pulse Ox 98 98 99 100 FiO2 90 09/03/20 09/03/20 09/03/20 09/03/20 03:18 03:48 04:02 04:17 Temp 99.5 Pulse 81 91 87 90 Resp 29 36 24 29 B/P (MAP) 125/76 (92) 93/58 (70) 107/67 (80) 112/69 (83) Pulse Ox 99 93 100 95 09/03/20 09/03/20 09/03/20 09/03/20 04:32 04:47 05:02 05:17 Pulse 63 59 66 61 Resp 27 24 26 26 B/P (MAP) 117/69 (85) 116/68 (84) 110/63 (79) 110/66 (81) Pulse Ox 100 100 100 100 09/03/20 09/03/20 09/03/20 09/03/20 05:32 05:47 05:50 05:50 Pulse 63 67 68 Resp 24 25 49 25 B/P (MAP) 119/60 (79) 108/66 (80) Pulse Ox 100 99 90 99 FiO2 90 09/03/20 09/03/20 09/03/20 09/03/20 06:02 06:17 08:00 08:00 Pulse 65 71 53 Resp 26 27 22 B/P (MAP) 110/65 (80) 106/66 (79) Pulse Ox 100 100 100 O2 Delivery Mechanical Ventilator FiO2 70 09/03/20 09/03/20 09/03/20 09/03/20 08:06 08:06 08:07 08:17 Pulse 61 61 61 61 Resp 26 26 25 25 Pulse Ox 98 98 98 98 O2 Delivery Mechanical Ventilator FiO2 90 90 09/03/20 09/03/20 09/03/20 09/03/20 10:21 12:00 12:00 13:50 Pulse 75 53 75 Resp 36 22 22 Pulse Ox 99 100 99 O2 Delivery Mechanical Ventilator FiO2 80 70 80 09/03/20 09/03/20 09/03/20 09/03/20 15:24 15:24 15:35 16:00 Pulse 58 75 58 53 Resp 31 22 31 22 Pulse Ox 99 99 99 100 FiO2 80 70 09/03/20 09/03/20 09/03/20 09/03/20 16:00 16:17 16:30 16:32 Temp 99.7 99.7 99.7 Pulse 63 57 60 Resp 50 48 82 B/P (MAP) 141/77 (98) 144/82 (102) Pulse Ox 99 100 99 O2 Delivery Mechanical Ventilator 09/03/20 09/03/20 09/03/20 09/03/20 16:45 16:47 17:00 17:02 Temp 99.7 99.7 99.7 99.7 Pulse 57 55 56 54 Resp 49 42 28 37 B/P (MAP) 145/79 (101) 143/79 (100) Pulse Ox 100 100 100 100 09/03/20 09/03/20 09/03/20 09/03/20 17:15 17:17 17:30 17:32 Temp 99.7 99.7 99.7 99.7 Pulse 70 65 57 60 Resp 30 B/P (MAP) 128/65 (86) 129/66 (87) Pulse Ox 99 100 100 100 09/03/20 09/03/20 09/03/20 09/03/20 17:45 17:47 17:52 18:00 Temp 99.5 99.5 99.5 Pulse 54 54 53 53 Resp B/P (MAP) 123/67 (85) Pulse Ox 100 100 100 100 FiO2 80 09/03/20 09/03/20 09/03/20 09/03/20 18:02 18:06 18:15 18:17 Temp 99.5 99.5 99.7 99.7 Pulse 52 54 53 53 Resp B/P (MAP) 129/67 (87) 126/66 (86) 128/68 (88) Pulse Ox 100 100 100 100 09/03/20 09/03/20 09/03/20 09/03/20 18:21 19:21 19:21 19:21 Temp 99.7 100.0 Pulse 53 52 52 Resp B/P (MAP) 130/72 (91) 131/74 (93) Pulse Ox 100 100 100 O2 Delivery Mechanical Ventilator FiO2 70 09/03/20 09/03/20 09/03/20 09/03/20 19:36 19:51 20:00 20:00 Temp 100.0 100.0 Pulse 53 64 59 64 Resp 22 B/P (MAP) 126/72 (90) 125/68 (87) Pulse Ox 100 100 99 99 FiO2 70 09/03/20 09/03/20 09/03/20 09/03/20 20:00 20:00 20:06 20:21 Temp 99.9 100.0 Pulse 59 59 78 64 Resp 22 22 25 B/P (MAP) 128/90 (103) 136/60 (85) Pulse Ox 99 99 99 100 O2 Delivery Mechanical Ventilator FiO2 70 09/03/20 09/03/20 09/03/20 09/03/20 20:36 20:51 21:06 21:15 Temp 99.9 99.9 99.7 99.7 Pulse 54 59 69 62 Resp 30 22 22 22 B/P (MAP) 123/62 (82) 126/74 (91) 117/63 (81) Pulse Ox 100 99 98 100 09/03/20 09/03/20 09/03/20 09/03/20 21:21 21:30 21:36 21:51 Temp 99.7 99.7 99.7 99.9 Pulse 62 63 61 58 Resp 22 18 B/P (MAP) 123/69 (87) 126/72 (90) 128/75 (92) Pulse Ox 100 100 100 100 09/03/20 09/03/20 09/03/20 09/03/20 22:06 22:06 22:21 22:36 Temp 99.9 99.9 99.9 Pulse 57 59 56 57 Resp 25 15 23 B/P (MAP) 128/70 (89) 133/73 (93) 135/82 (99) Pulse Ox 100 100 100 100 FiO2 70 09/03/20 09/03/20 09/03/20 09/03/20 22:51 23:03 23:03 23:06 Temp 100.0 100.0 Pulse 57 60 62 Resp 22 22 13 B/P (MAP) 133/74 (93) 125/71 (89) Pulse Ox 100 100 100 O2 Delivery Mechanical Ventilator FiO2 70 09/03/20 09/03/20 09/03/20 09/04/20 23:21 23:37 23:51 00:06 Temp 100.2 100.2 100.2 100.0 Pulse 75 93 75 65 Resp 9 63 22 24 B/P (MAP) 116/63 (80) 152/119 (130) 129/69 (89) 136/70 (92) Pulse Ox 100 88 100 100 09/04/20 09/04/20 09/04/20 09/04/20 00:21 00:36 00:51 01:00 Temp 100.0 100.2 100.2 Pulse 80 61 56 55 Resp 35 24 23 22 B/P (MAP) 136/69 (91) 128/71 (90) 131/72 (91) Pulse Ox 99 98 99 100 FiO2 70 09/04/20 09/04/20 09/04/20 09/04/20 01:06 01:21 01:36 01:51 Temp 100.4 100.4 100.4 100.4 Pulse 58 56 56 58 Resp 22 22 B/P (MAP) 131/75 (93) 132/72 (92) 130/76 (94) 127/73 (91) Pulse Ox 100 100 100 100 09/04/20 09/04/20 09/04/20 09/04/20 02:06 02:21 02:30 02:30 Temp 100.6 100.6 Pulse 68 64 64 64 Resp 18 20 25 25 B/P (MAP) 120/68 (85) 122/67 (85) Pulse Ox 100 100 99 99 FiO2 70 09/04/20 09/04/20 09/04/20 09/04/20 02:30 02:36 02:51 03:06 Temp 100.6 100.8 100.8 Pulse 64 60 66 65 Resp 20 25 19 B/P (MAP) 123/67 (85) 122/69 (86) 120/66 (84) Pulse Ox 100 100 99 100 09/04/20 09/04/20 09/04/20 09/04/20 03:11 03:11 03:21 03:36 Temp 100.8 100.6 Pulse 65 64 63 Resp 21 19 29 B/P (MAP) 126/67 (86) 121/67 (85) Pulse Ox 100 100 99 O2 Delivery Mechanical Ventilator FiO2 70 09/04/20 09/04/20 09/04/20 09/04/20 03:51 04:06 04:21 04:36 Temp 100.4 100.4 100.4 100.4 Pulse 56 55 56 72 Resp 25 8 25 33 B/P (MAP) 128/67 (87) 126/74 (91) 123/69 (87) 113/67 (82) Pulse Ox 99 100 100 97 09/04/20 09/04/20 09/04/20 09/04/20 04:43 04:51 05:06 05:21 Temp 100.2 100.4 100.2 Pulse 60 77 82 68 Resp 25 38 39 32 B/P (MAP) 113/63 (80) 116/71 (86) 112/58 (76) Pulse Ox 100 93 93 92 FiO2 70 09/04/20 09/04/20 09/04/20 09/04/20 05:36 05:51 06:00 06:06 Temp 100.2 100.2 100.2 Pulse 59 58 57 59 Resp 23 B/P (MAP) 121/66 (84) 119/72 (88) 115/66 (82) Pulse Ox 96 97 97 98 FiO2 70 09/04/20 09/04/20 09/04/20 09/04/20 06:21 06:36 08:00 08:00 Temp 100.4 100.4 Pulse 69 74 53 Resp 25 27 22 B/P (MAP) 110/63 (79) 110/60 (77) Pulse Ox 98 98 100 O2 Delivery Mechanical Ventilator FiO2 70 09/04/20 09/04/20 09/04/20 09/04/20 08:11 08:11 08:11 08:11 Pulse 66 74 66 66 Resp 25 25 Pulse Ox 94 98 94 94 O2 Delivery Mechanical Ventilator FiO2 70 70 09/04/20 09/04/20 09/04/20 09/04/20 10:11 10:26 10:33 10:41 Temp 100.0 100.4 100.4 Pulse 75 71 78 70 Resp 26 B/P (MAP) 101/58 111/60 103/60 Pulse Ox 98 FiO2 80 09/04/20 09/04/20 09/04/20 09/04/20 11:01 11:31 12:00 12:00 Temp 100.3 100.3 Pulse 79 67 53 Resp 22 B/P (MAP) 111/60 109/59 Pulse Ox 100 O2 Delivery Mechanical Ventilator FiO2 80 09/04/20 09/04/20 09/04/20 09/04/20 13:06 13:15 13:21 13:30 Temp 100.4 100.4 100.4 100.2 Pulse 72 76 73 69 Resp 54 42 25 27 B/P (MAP) 121/70 (87) 115/64 (81) Pulse Ox 98 97 97 95 09/04/20 09/04/20 09/04/20 09/04/20 13:36 13:45 13:51 14:00 Temp 100.0 100.0 100.0 100.0 Pulse 68 75 66 71 Resp 30 36 35 48 B/P (MAP) 117/61 (79) 120/72 (88) Pulse Ox 95 95 93 95 09/04/20 09/04/20 09/04/20 09/04/20 14:06 14:09 14:09 14:09 Temp 100.0 Pulse 67 105 105 105 Resp 88 35 35 35 B/P (MAP) 124/60 (81) Pulse Ox 94 94 94 94 FiO2 80 09/04/20 09/04/20 09/04/20 09/04/20 14:15 14:21 14:30 14:36 Temp 100.0 100.0 100.0 99.9 Pulse 67 60 74 62 Resp 28 B/P (MAP) 117/68 (84) 127/70 (89) Pulse Ox 91 92 92 93 09/04/20 09/04/20 09/04/20 09/04/20 14:45 14:51 15:00 15:06 Temp 99.9 99.9 99.7 99.7 Pulse 63 60 68 64 Resp 22 96 22 22 B/P (MAP) 121/66 (84) 122/68 (86) Pulse Ox 96 98 99 100 09/04/20 09/04/20 09/04/20 09/04/20 15:15 15:21 15:36 15:45 Temp 99.7 99.7 99.5 99.5 Pulse 61 59 57 57 Resp 22 22 22 22 B/P (MAP) 122/69 (86) 118/72 (87) Pulse Ox 100 100 100 100 09/04/20 09/04/20 09/04/20 09/04/20 15:51 16:00 16:00 16:00 Temp 99.5 99.5 Pulse 56 53 58 Resp 26 22 23 B/P (MAP) 117/68 (84) Pulse Ox 100 100 100 O2 Delivery Mechanical Ventilator FiO2 80 09/04/20 09/04/20 09/04/20 09/04/20 16:06 16:15 16:21 16:30 Temp 99.3 99.3 99.3 99.5 Pulse 68 77 80 73 Resp 27 26 33 37 B/P (MAP) 136/75 (95) 131/67 (88) Pulse Ox 99 97 96 96 09/04/20 09/04/20 09/04/20 09/04/20 16:36 16:45 16:45 16:51 Temp 99.5 99.5 99.5 Pulse 73 74 80 69 Resp 38 22 22 22 B/P (MAP) 132/76 (94) 119/68 (85) Pulse Ox 95 96 95 96 FiO2 80 09/04/20 09/04/20 09/04/20 09/04/20 17:00 17:06 17:15 17:21 Temp 99.5 99.5 99.5 99.5 Pulse 65 66 61 63 Resp 22 B/P (MAP) 121/72 (88) 119/71 (87) Pulse Ox 96 97 98 98 09/04/20 09/04/20 09/04/20 09/04/20 17:30 17:36 17:45 17:51 Temp 99.5 99.3 99.3 99.3 Pulse 59 57 56 55 Resp 22 22 22 B/P (MAP) 115/68 (84) 116/71 (86) Pulse Ox 99 99 99 99 09/04/20 09/04/20 09/04/20 09/04/20 19:00 19:00 19:06 19:21 Temp 98.6 98.6 Pulse 50 50 52 Resp 23 22 22 B/P (MAP) 120/68 (85) 127/67 (87) Pulse Ox 100 98 98 O2 Delivery Mechanical Ventilator FiO2 80 09/04/20 09/04/20 09/04/20 09/04/20 19:36 19:51 20:00 20:00 Temp 98.6 98.6 Pulse 50 52 50 50 Resp 22 22 22 B/P (MAP) 120/75 (90) 115/65 (82) Pulse Ox 99 99 98 98 O2 Delivery Mechanical Ventilator FiO2 80 80 09/04/20 09/04/20 09/04/20 09/04/20 20:00 20:00 20:06 20:21 Temp 98.6 98.4 Pulse 50 50 53 51 Resp 22 B/P (MAP) 113/66 (82) 112/68 (83) Pulse Ox 98 98 98 98 09/04/20 09/04/20 09/04/20 09/04/20 20:36 20:51 21:06 21:21 Temp 98.4 98.2 98.2 98.1 Pulse 51 51 78 62 Resp 22 B/P (MAP) 110/63 (79) 109/66 (80) 112/71 (85) 105/60 (75) Pulse Ox 98 99 99 97 09/04/20 09/04/20 09/04/20 09/04/20 21:36 21:51 22:06 22:12 Temp 98.1 98.1 98.1 Pulse 68 63 61 54 Resp B/P (MAP) 119/63 (81) 117/69 (85) 121/68 (85) Pulse Ox 96 92 92 99 FiO2 80 09/04/20 09/04/20 09/04/20 09/04/20 22:21 22:36 22:51 23:00 Temp 98.1 98.1 98.2 Pulse 62 63 60 60 Resp B/P (MAP) 121/69 (86) 132/73 (92) 117/66 (83) Pulse Ox 92 97 97 100 FiO2 80 09/04/20 09/04/20 09/04/20 09/04/20 23:00 23:06 23:21 23:36 Temp 98.2 98.2 98.4 Pulse 59 57 57 Resp B/P (MAP) 115/68 (84) 111/68 (82) 112/63 (79) Pulse Ox 97 98 98 O2 Delivery Mechanical Ventilator 09/04/20 09/05/20 09/05/20 09/05/20 23:51 00:06 00:21 00:36 Temp 98.4 98.2 98.2 98.2 Pulse 56 56 58 58 Resp 24 B/P (MAP) 107/64 (78) 111/66 (81) 111/62 (78) 108/61 (77) Pulse Ox 97 96 95 93 09/05/20 09/05/20 09/05/20 09/05/20 00:51 01:07 01:21 01:24 Temp 98.2 98.4 Pulse 57 81 99 84 Resp B/P (MAP) 108/68 (81) 106/59 (75) 105/67 (80) Pulse Ox 92 95 82 95 FiO2 80 09/05/20 09/05/20 09/05/20 09/05/20 01:36 01:51 02:06 02:21 Temp 98.6 99.0 99.1 Pulse 83 89 88 84 Resp B/P (MAP) 112/57 (75) 120/62 (81) 114/60 (78) 113/60 (77) Pulse Ox 93 92 92 91 09/05/20 09/05/20 09/05/20 09/05/20 02:36 02:51 03:00 03:00 Temp 99.3 99.5 Pulse 89 90 88 88 Resp B/P (MAP) 117/62 (80) 122/57 (78) Pulse Ox 91 90 92 92 FiO2 80 09/05/20 09/05/20 09/05/20 09/05/20 03:00 03:00 03:00 03:06 Temp 99.7 Pulse 80 88 85 Resp B/P (MAP) 130/71 (90) Pulse Ox 88 94 88 O2 Delivery Mechanical Ventilator FiO2 80 09/05/20 09/05/20 09/05/20 09/05/20 03:21 03:36 03:51 03:51 Temp 99.7 99.7 99.7 99.7 Pulse 87 108 87 87 Resp B/P (MAP) 115/65 (82) 122/68 (86) 115/67 (83) 115/67 (83) Pulse Ox 91 93 93 93 09/05/20 09/05/20 09/05/20 09/05/20 04:06 04:21 04:36 04:51 Temp 99.9 100.0 100.2 98.2 Pulse 88 93 91 91 Resp B/P (MAP) 116/64 (81) 117/62 (80) 116/67 (83) 121/68 (85) Pulse Ox 94 94 93 94 1109/05/20 09/05/20 09/05/20 05:06 05:21 05:36 05:51 Temp 100.2 100.0 100.2 100.2 Pulse 90 98 98 89 Resp B/P (MAP) 120/72 (88) 124/73 (90) 127/72 (90) 125/66 (85) Pulse Ox 95 95 95 95 09/05/20 09/05/20 09/05/20 09/05/20 06:06 06:21 06:31 06:36 Temp 100.4 100.4 100.0 Pulse 91 93 97 95 Resp B/P (MAP) 128/68 (88) 123/71 (88) 125/69 (87) Pulse Ox 95 95 94 94 FiO2 80 09/05/20 09/05/20 09/05/20 09/05/20 06:51 07:00 07:06 07:15 Temp 100.4 100.4 100.4 100.4 Pulse 93 93 94 93 Resp B/P (MAP) 116/70 (85) 128/69 (88) Pulse Ox 95 95 95 95 09/05/20 09/05/20 09/05/20 09/05/20 07:21 07:30 07:36 07:45 Temp 100.4 100.4 100.4 100.4 Pulse 91 92 95 95 Resp B/P (MAP) 133/74 (93) 140/76 (97) Pulse Ox 95 95 95 94 09/05/20 09/05/20 09/05/20 09/05/20 07:51 08:00 08:00 08:06 Temp 100.6 100.6 100.6 Pulse 97 100 99 Resp 28 B/P (MAP) 135/70 (91) 128/74 (92) Pulse Ox 94 94 94 FiO2 80 09/05/20 09/05/20 09/05/20 09/05/20 08:15 08:21 08:30 08:36 Temp 100.8 100.8 100.8 100.8 Pulse 109 125 113 105 Resp 36 57 36 32 B/P (MAP) 161/82 (108) 136/66 (89) Pulse Ox 93 83 91 91 09/05/20 09/05/20 09/05/20 08:45 08:51 09:19 Temp 100.8 100.8 Pulse 107 107 Resp 34 37 B/P (MAP) 126/72 (90) Pulse Ox 91 91 O2 Delivery Mechanical Ventilator Intake and Output 09/05/20 06:00 Intake Total 3428.5 ml Output Total 550 ml Balance 2878.5 ml VTE VTE Risk Total Score: 2 VTE Risk Score VTE Risk: Score 0-1 = Low Risk (Aggressive mobilization; early ambulation; no VTE prophylaxis required) Score 2: Moderate Risk (Intermittent/Pneumatic Compression Device OR Lovenox/Heparin/Coumadin) Score 3-4: High Risk (Intermittent/Pneumatic Compression Device AND Lovenox/Heparin/Coumadin) Score > or =5: Highest Risk (Intermittent/Pneumatic Compression Device AND Lovenox/Heparin/Coumadin) VTE VTE Present on Admission: No Currently receiving anticoagul: No VTE Risk Total Score: 2 Assessment/Plan Assessment/Plan Assessment/Plan 54 y.o. male with COVID ARF; intubated, sedated, paralyzed CV: HD stable HR=93 YY=560/70 without pressor support requirement at this time Pulm: RR=22 95% on AC 22 450 80% 12 with ABG=7.39/50/59/29/89% Increase Fi02 to 90% and follow sats Continue Ventolin, Duonebs GI: Tolerating TFs @goal T. Prot=5.6 Albumin=1.9 NL LFTs Completed Remdesivir Upe=763 Pepcid for stress ulcer prophylaxis : Adequate UO per [facility] SPECIALIST BUN/Cr=17/0.6 Lytes: NL ID: Febrile Ecid=432.4 WBC increasing=19.1 Cultures neg Consider re- culture due to increasing leukocystosis Continue Cefepime, Vanco empirically Continue Vit C, Zinc Heme: H/H=15.2/44 Ftwdnbtnk=334 D dimer increasing to 1.0 Continue ASA for antiplatelet therapy Continue anticoagulation Lovenox dosing due to persistent risk thrombosis due to COVID Neuro: GCS 3T on Diprivan, Fentanyl and Vec I saw this patient and completed full visual exam using audio-visual HIPAA compliant technology I spent 60 mins telemedicine critical care time I discussed treatment plan with [facility] SPECIALIST and resp therapy Patient History: Unknown 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 Plan Increase vent support Antiplatelet therapy Anticoagulation TFs Stress ulcer prophylaxis Empiric antibiotics Trend markers BORGOS,RONALD MD Sep 05, 2020 11:56
[2020-09-05] MEDS ORDERED: NORCURON ONE (12:00)
[2020-09-05] MEDS: PRECEDEX IV SCH (12:53)
[2020-09-05] MEDS: NS IV SCH (12:53)
--- NOTE | 2020-09-05 13:45 | NUR ---
0700 - Report obtained from previous nurse. Pt sedated prn precedex, fentanyl and propofol. Pt to recieve vecuronium as needed to maintain adequate oxygen saturation and RR about 22. 0900 - Pt febrile 100.8, ice applied to groin and axilla. New orders entered, antibiotic changed, blood and sputum culture ordered. 1100- Pulmonary rounds performed using [facility]. Dr Lund pulmonary physician. updated on antibiotic and cultures orders. Respiratory therapist increased pt's fio2 to 90% as discussed with Dr. Lund. 1200 Dr Leblanc rounding. Pt currently awake, and febrile. Pt sedation adjusted. Will continue to monitor.
--- NOTE | 2020-09-05 15:16 | NUR ---
1400- Pt's calledand updated on pt's condition and plan of care. states understanding of changes and request for DR. Cano to contact pt's primary physicians DR. Briones and Dr. Mcmullen at [phone]. Charge nurse updated and will notify Dr Cano. 1500- Pt's temp 99.4 cooling blanket tat was applied at 1230 turned off, will continue to monitor.
[2020-09-05] MEDS: SUBLIMAZE 1,000 MCG in NS 100ML 80 ML IV SCH (20:28)
[2020-09-05] MEDS ORDERED: NS 500ML 500 ML IV ONE (21:36)
--- NOTE | 2020-09-05 22:13 | PRM.PN ---
Subjective Subjective Date: Sep 05, 2020 Time: 22:14 Subjective Pt s/e this am at bedside. He has been febrile overnight, which is new. This morning, he was slightly under-sedated and was alert enough to be able to nod/shake his head to questions. I discussed his current condition and how he was doing. He denied any pain, nausea, HONG, or discomfort, but further ROS could not be reliably obtained. Review of Systems ENT: Other Other Unable to be obtained due to sedation Allergies: Coded Allergies: Sulfa (Sulfonamide Antibiotics) (Verified Allergy, Mild, 08/31/20) Scheduled Atorvastatin 10MG (Lipitor 10MG), 1 TAB PO HS, (Reported) Bisoprolol Fumarate/Hctz (Bisoprolol-Hctz 5-6.25 Mg Tab), 1 TAB PO DAILY, (Reported) Temazepam (Restoril), 1 CAP PO HS, (Reported) Objective Vitals and I/O Vital Sign - Last 24 Hours 09/04/20 09/04/20 09/04/20 09/04/20 22:06 22:12 22:21 22:36 Temp 98.1 98.1 98.1 Pulse 61 54 62 63 Resp 30 22 B/P (MAP) 121/68 (85) 121/69 (86) 132/73 (92) Pulse Ox 92 99 92 97 FiO2 80 09/04/20 09/04/20 09/04/20 09/04/20 22:51 23:00 23:00 23:06 Temp 98.2 98.2 Pulse 60 60 59 Resp 22 B/P (MAP) 117/66 (83) 115/68 (84) Pulse Ox 97 100 97 O2 Delivery Mechanical Ventilator FiO2 80 09/04/20 09/04/20 09/04/20 09/05/20 23:21 23:36 23:51 00:06 Temp 98.2 98.4 98.4 98.2 Pulse 57 57 56 56 Resp 22 22 B/P (MAP) 111/68 (82) 112/63 (79) 107/64 (78) 111/66 (81) Pulse Ox 98 98 97 96 09/05/20 09/05/20 09/05/20 09/05/20 00:21 00:36 00:51 01:07 Temp 98.2 98.2 98.2 98.4 Pulse 58 58 57 81 Resp 65 B/P (MAP) 111/62 (78) 108/61 (77) 108/68 (81) 106/59 (75) Pulse Ox 95 93 92 95 09/05/20 09/05/20 09/05/20 09/05/20 01:21 01:24 01:36 01:51 Temp 98.6 Pulse 99 84 83 89 Resp B/P (MAP) 105/67 (80) 112/57 (75) 120/62 (81) Pulse Ox 82 95 93 92 FiO2 80 09/05/20 09/05/20 09/05/20 09/05/20 02:06 02:21 02:36 02:51 Temp 99.0 99.1 99.3 99.5 Pulse 88 84 89 90 Resp B/P (MAP) 114/60 (78) 113/60 (77) 117/62 (80) 122/57 (78) Pulse Ox 92 91 91 90 09/05/20 09/05/20 09/05/20 09/05/20 03:00 03:00 03:00 03:00 Pulse 88 88 80 88 Resp Pulse Ox 92 92 88 94 FiO2 80 80 09/05/20 09/05/20 09/05/20 09/05/20 03:00 03:06 03:21 03:36 Temp 99.7 99.7 99.7 Pulse 85 87 108 Resp B/P (MAP) 130/71 (90) 115/65 (82) 122/68 (86) Pulse Ox 88 91 93 O2 Delivery Mechanical Ventilator 09/05/20 09/05/20 09/05/20 09/05/20 03:51 03:51 04:06 04:21 Temp 99.7 99.7 99.9 100.0 Pulse 87 87 88 93 Resp B/P (MAP) 115/67 (83) 115/67 (83) 116/64 (81) 117/62 (80) Pulse Ox 93 93 94 94 09/05/20 09/05/20 09/05/20 09/05/20 04:36 04:51 05:06 05:21 Temp 100.2 98.2 100.2 100.0 Pulse 91 91 90 98 Resp B/P (MAP) 116/67 (83) 121/68 (85) 120/72 (88) 124/73 (90) Pulse Ox 93 94 95 95 09/05/20 09/05/20 09/05/20 09/05/20 05:36 05:51 06:06 06:21 Temp 100.2 100.2 100.4 100.4 Pulse 98 89 91 93 Resp B/P (MAP) 127/72 (90) 125/66 (85) 128/68 (88) 123/71 (88) Pulse Ox 95 95 95 95 09/05/20 09/05/20 09/05/20 09/05/20 06:31 06:36 06:51 07:00 Temp 100.0 100.4 100.4 Pulse 97 95 93 93 Resp B/P (MAP) 125/69 (87) 116/70 (85) Pulse Ox 94 94 95 95 FiO2 80 09/05/20 09/05/20 09/05/20 09/05/20 07:06 07:15 07:21 07:30 Temp 100.4 100.4 100.4 100.4 Pulse 94 93 91 92 Resp B/P (MAP) 128/69 (88) 133/74 (93) Pulse Ox 95 95 95 95 09/05/20 09/05/20 09/05/20 09/05/20 07:36 07:45 07:51 08:00 Temp 100.4 100.4 100.6 Pulse 95 95 97 100 Resp B/P (MAP) 140/76 (97) 135/70 (91) Pulse Ox 95 94 94 93 FiO2 80 09/05/20 09/05/20 09/05/20 09/05/20 08:00 08:06 08:15 08:21 Temp 100.6 100.6 100.8 100.8 Pulse 100 99 109 125 Resp 36 57 B/P (MAP) 128/74 (92) 161/82 (108) Pulse Ox 94 94 93 83 09/05/20 09/05/20 09/05/20 09/05/20 08:30 08:36 08:45 08:51 Temp 100.8 100.8 100.8 100.8 Pulse 113 105 107 107 Resp 36 32 34 37 B/P (MAP) 136/66 (89) 126/72 (90) Pulse Ox 91 91 91 91 09/05/20 09/05/20 09/05/20 09/05/20 09:00 09:00 09:00 09:00 Pulse 96 107 96 96 Resp 24 37 24 24 Pulse Ox 94 94 94 94 O2 Delivery Mechanical Ventilator FiO2 80 80 09/05/20 09/05/20 09/05/20 09/05/20 09:19 09:45 10:36 10:45 Temp 100.9 100.9 Pulse 104 105 Resp 25 29 B/P (MAP) 146/74 (98) Pulse Ox 92 93 O2 Delivery Mechanical Ventilator FiO2 90 09/05/20 09/05/20 09/05/20 09/05/20 10:51 11:00 11:06 11:15 Temp 100.9 100.9 100.9 100.9 Pulse 104 105 104 107 Resp 31 30 29 30 B/P (MAP) 141/75 (97) 139/76 (97) Pulse Ox 93 94 94 93 09/05/20 09/05/20 09/05/20 09/05/20 11:21 11:30 11:36 11:45 Temp 100.9 101.1 101.1 101.1 Pulse 106 119 127 118 Resp 32 33 38 34 B/P (MAP) 143/73 (96) 129/77 (94) Pulse Ox 93 93 93 92 09/05/20 09/05/20 09/05/20 09/05/20 11:51 12:00 12:00 12:06 Temp 101.1 101.1 Pulse 116 110 Resp 25 34 B/P (MAP) 135/72 (93) 156/97 (116) Pulse Ox 93 94 83 O2 Delivery Mechanical Ventilator 09/05/20 09/05/20 09/05/20 09/05/20 12:14 12:15 12:21 12:30 Pulse 107 105 103 109 Resp 37 24 64 39 B/P (MAP) 134/78 (96) Pulse Ox 94 92 84 FiO2 90 09/05/20 09/05/20 09/05/20 09/05/20 12:30 12:36 12:45 12:51 Pulse 99 101 114 103 Resp 32 27 25 22 B/P (MAP) 131/73 (92) 133/75 (94) Pulse Ox 92 93 94 94 FiO2 90 09/05/20 09/05/20 09/05/20 09/05/20 13:00 13:06 13:21 13:36 Pulse 100 98 93 95 Resp 22 B/P (MAP) 131/73 (92) 131/78 (95) 134/79 (97) Pulse Ox 96 97 97 97 09/05/20 09/05/20 09/05/20 09/05/20 13:51 13:52 14:06 14:22 Pulse 95 107 88 Resp 23 B/P (MAP) 123/73 (90) 120/78 (92) 108/70 (83) Pulse Ox 98 97 97 85 FiO2 90 09/05/20 09/05/20 09/05/20 09/05/20 14:36 14:51 15:00 15:06 Temp 64.0 99.7 99.7 Pulse 76 75 73 78 Resp B/P (MAP) 113/65 (81) 113/70 (84) 113/74 (87) Pulse Ox 93 94 94 89 09/05/20 09/05/20 09/05/20 09/05/20 15:06 15:15 15:21 15:21 Temp 99.7 99.5 99.5 99.5 Pulse 78 61 59 59 Resp 43 22 B/P (MAP) 113/74 (87) 114/65 (81) 114/65 (81) Pulse Ox 89 96 97 97 09/05/20 09/05/20 09/05/20 09/05/20 15:30 15:34 15:35 15:36 Temp 99.3 Pulse 60 67 67 67 Resp 22 23 Pulse Ox 98 94 94 94 FiO2 90 09/05/20 09/05/20 09/05/20 09/05/20 15:36 15:45 15:51 16:00 Temp 99.3 99.3 99.3 Pulse 59 59 59 Resp 22 B/P (MAP) 114/70 (85) 115/70 (85) Pulse Ox 98 98 99 O2 Delivery Mechanical Ventilator 09/05/20 09/05/20 09/05/20 09/05/20 16:00 16:06 16:17 18:09 Temp 99.3 99.3 Pulse 60 62 99 67 Resp 22 32 29 B/P (MAP) 120/75 (90) Pulse Ox 99 99 92 89 FiO2 90 90 09/05/20 09/05/20 09/05/20 09/05/20 19:00 19:06 19:15 19:21 Temp 99.7 99.7 99.7 99.7 Pulse 64 65 66 66 Resp 22 22 22 B/P (MAP) 122/71 (88) 119/71 (87) Pulse Ox 93 93 92 91 09/05/20 09/05/20 09/05/20 09/05/20 19:30 19:36 19:45 19:51 Temp 99.7 99.7 99.5 99.5 Pulse 65 64 63 62 Resp 22 27 28 30 B/P (MAP) 120/63 (82) 119/74 (89) Pulse Ox 91 89 87 88 09/05/20 09/05/20 09/05/20 09/05/20 20:00 20:00 20:00 20:06 Temp 99.5 99.5 Pulse 60 59 57 Resp 22 26 B/P (MAP) 124/70 (88) Pulse Ox 88 91 89 O2 Delivery Mechanical Ventilator FiO2 90 09/05/20 09/05/20 20:15 20:21 Temp 99.5 99.5 Pulse 57 59 Resp 24 22 B/P (MAP) 119/67 (84) Pulse Ox 89 90 Intake and Output 09/05/20 07:00 Intake Total 3078.5 ml Output Total 750 ml Balance 2328.5 ml General: Alert, Cooperative, No acute distress, Other (intubated) HEENT: Atraumatic, PERRLA, Other (ETT in place ) Neck: Supple, No JVD Lungs: Other (breath sounds equal and symmetric. Lungs are mostly clear, but there are increasing scattered rales. ) Heart: Normal S1, Normal S2, No murmurs, Other (slightly tachycardic this AM) Abdomen: Normal bowel sounds, Soft Extremities: No clubbing, No cyanosis, No edema, Normal pulses, No tenderness/swelling Skin: No rashes, No breakdown, No significant lesion, Other (There is signicant subq emphysema overlying his chest and neck. ) Neuro: Other (awake this AM; able to follow commands and answer simple yes/no questions. ) Psych/Mental Status: Other (deferred ) All Results(Lab/Rad) Laboratory Tests Test 08/31/20 11:40 09/01/20 04:40 Blood Gas Sample Site LR Blood Gas pH 7.430 Blood Gas PCO2 31.9 mmHg Blood Gas PO2 64.2 mmHg Blood Gas HCO3 20.7 mmol/L Blood Gas Base Excess -2.2 mmol/L Vince Test POSITIVE Arterial Blood Oxygen Saturation 92.7 % Deoxyhemoglobin 7.2 % Carboxyhemoglobin 0.3 % Methemoglobin 0.6 % Total Hemoglobin 19.8 % Total Oxygen Concentration 25.5 % Oxygen Delivery Method (LAB) CPAP 12 FiO2 100 % Total Carbon Dioxide 21.7 mmol/L White Blood Count 20.4 10^3/uL Red Blood Count 5.40 10^6/uL Hemoglobin 17.3 g/dL Hematocrit 48.5 % Mean Corpuscular Volume 89.8 fL Mean Corpuscular Hemoglobin 32.0 pg Mean Corpuscular Hemoglobin Concent 35.7 g/dL Red Cell Distribution Width 12.7 % Platelet Count 216 10^3/uL Mean Platelet Volume 9.5 fL Sodium Level 141 mmol/L Potassium Level 4.3 mmol/L Chloride Level 105.0 mmol/L Carbon Dioxide Level 24.8 mmol/L Anion Gap 15.5 Blood Urea Nitrogen 30 mg/dL Creatinine 1.15 mg/dL Estimated GFR () 79.9 Est GFR (CKD-EPI)(Non-Afr Italian) 66.0 BUN/Creatinine Ratio 26.0 Glucose Level 119 mg/dL Calcium Level 8.5 mg/dL Phosphorus Level 4.1 mg/dL Magnesium Level 3.0 mg/dL Total Bilirubin 1.1 mg/dL Aspartate Amino Transf (AST/SGOT) 56 U/L Alanine Aminotransferase (ALT/SGPT) 56 U/L Alkaline Phosphatase 84 U/L Total Protein 7.0 g/dL Albumin 2.4 g/dL Globulin 4.6 Albumin/Globulin Ratio 0.521 Current Medications Medications (Trade) Dose Ordered Sig/Estuardo Route PRN Reason Start Time Stop Time Status Last Admin Dose Admin Enoxaparin Sodium (Lovenox) 40 mg DAILY SQ 08/31/20 09:00 09/30/20 08:59 08/31/20 09:33 Remdesivir 200 mg/ Sodium Chloride 140 ml @ 120.69 mls/ hr OT IV 08/31/20 09:30 08/31/20 10:40 DC 08/31/20 09:38 Lorazepam (Ativan) 1 mg Q3HR PRN IV ANXIETY 08/31/20 05:00 09/30/20 04:59 09/01/20 06:00 Azithromycin 500 mg/Sodium Chloride 250 ml @ 175 mls/hr Q24HRS IV 08/31/20 05:00 09/04/20 08:00 09/01/20 05:00 Ceftriaxone Sodium 1000 mg/ Sodium Chloride 100 ml @ 100 mls/hr Q24HRS IV 08/31/20 05:00 09/30/20 04:59 09/01/20 05:00 Lorazepam (Ativan) 1 mg STAT STAT IV 08/31/20 05:16 08/31/20 08:31 DC 08/31/20 05:34 Sodium Chloride 100 ml @ ud STK-MED ONCE IV 08/31/20 05:18 08/31/20 05:21 DC Ceftriaxone Sodium (Rocephin) 1,000 mg STK-MED ONCE .ROUTE 08/31/20 05:19 08/31/20 05:21 DC Sodium Chloride 500 ml @ ud STK-MED ONCE IV 08/31/20 05:37 08/31/20 05:40 DC Morphine Sulfate (Morphine Sulfate) 0.5 mg STAT ONCE IV 08/31/20 06:15 08/31/20 08:44 DC 08/31/20 06:15 Albuterol/ Ipratropium (Duo 0.5-3(2.5) Mg/3 ml) 3 ml RTQ6H IH 08/31/20 08:00 09/30/20 07:59 08/31/20 16:30 Albuterol Sulfate (Ventolin) 2.5 mg RTQ4 PRN IH WHEEZING 08/31/20 08:00 09/30/20 07:59 Furosemide (Lasix) 40 mg STAT STAT IV 08/31/20 07:55 08/31/20 08:44 DC 08/31/20 08:08 Morphine Sulfate (Morphine Sulfate) 0.5 mg OT STAT IV 08/31/20 07:56 08/31/20 08:44 DC 08/31/20 08:25 Lorazepam (Ativan) 0.5 mg STAT STAT IV 08/31/20 07:56 08/31/20 08:43 DC 08/31/20 08:23 Sodium Chloride 250 ml @ ud STK-MED ONCE IV 08/31/20 08:03 08/31/20 08:05 DC Sodium Chloride 100 ml @ ud STK-MED ONCE IV 08/31/20 09:34 08/31/20 09:36 DC Remdesivir 100 mg/ Sodium Chloride 120 ml @ 111.111 mls/hr Q24HRS IV 09/01/20 09:00 10/01/20 08:59 Aspirin (Aspirin) 81 mg DAILY PO 09/01/20 09:00 10/01/20 08:59 Famotidine (Pepcid) 20 mg BID PO 08/31/20 21:00 09/30/20 20:59 08/31/20 20:46 Ascorbic Acid (Vitamin C) 500 mg BID PO 08/31/20 21:00 09/30/20 20:59 08/31/20 21:00 Zinc Sulfate (Zinc Sulfate) 220 mg DAILY PO 08/31/20 21:00 09/30/20 20:59 08/31/20 21:00 Guaifenesin (Robitussin Dm) 5 ml Q4HR PRN PO COUGH 09/01/20 01:30 10/01/20 01:29 Morphine Sulfate (Morphine Sulfate) 2 mg STK-MED ONCE .ROUTE 09/01/20 03:32 09/01/20 03:34 DC Morphine Sulfate (Morphine Sulfate) 0.5 mg STAT STAT IV 09/01/20 03:33 09/01/20 03:35 DC 09/01/20 03:33 Sodium Chloride 100 ml @ ud STK-MED ONCE IV 09/01/20 05:28 09/01/20 05:30 DC Sodium Chloride 250 ml @ ud STK-MED ONCE IV 09/01/20 05:29 09/01/20 05:30 DC Ceftriaxone Sodium (Rocephin) 1,000 mg STK-MED ONCE .ROUTE 09/01/20 05:29 09/01/20 05:31 DC Benzonatate (Tessalon Perle) 100 mg Q2 PRN PO COUGH 09/01/20 06:00 09/01/20 05:50 DC Dexmedetomidine HCl 200 mcg/ Sodium Chloride 50 ml @ 0 mls/hr IV 09/01/20 06:00 10/01/20 05:59 Sodium Chloride 250 ml @ ud STK-MED ONCE IV 09/01/20 05:37 09/01/20 05:39 DC Benzonatate (Tessalon Perle) 200 mg TID PRN PO COUGH 09/01/20 06:00 10/01/20 05:59 09/01/20 06:00 Acetaminophen/ Hydrocodone Bitart ([place] 5mg) 1 ea TID PRN PO PAIN 4 - 6 09/01/20 06:00 10/01/20 05:59 Assessment/Plan Assessment/Plan Assessment/Plan Pt is a 54 y/o M with PMHx of HTN, HLD, obesity, and anxiety. He was admitted the morning of 08/31 as a transfer from OSH for acute hypoxemic respiratory failure and COVID-19. He was started on full spectrum treatment for COVID-19 with IV Decadron, Azithromycin, Remdesivir, CCP, Zinc, and Vitamin C. On arrival to this facility, he was in mild to moderate respiratory distress and required continuous CPAP to maintain Oxygenation. He remained relatively stable throughout 08/31, but started becoming more fatigued the evening of 08/31, and was moved to the ICU for closer monitoring. In the ICU, he was continued on CPAP in an effort to avoid intubation. However, he continued to have difficulty with NIPPV and was frequently dyssynchronous, causing further desaturations. He was also noted to have Sub q emphysema in his chest and neck, which was concerning for barotrauma due to continued dyssynchrony. The morning of 09/01, he was noted to be in worsened respiratory distress and there was concern for impending res piratory collapse due to fatigue. The patient and I discussed intubation and he agreed to be electively intubated before he decompensated completely. The on- call [employer] was called and the patient was subsequently intubated without complication. He was started on Propofol and fentanyl drips and paralyzed with IV vecuronium pushes. He has tolerated mechanical ventilation rather well and his O2 sats and PaO2 have improved markedly. Prior to intubation his ABG showed normal pH and a PaO2 in the 50's. His PaO2 improved to 70's within the hour, and was 150's on his most recent ABG the evening of 09/01. Of note, I did discuss the possibility of prolonged intubation, need for tracheostomy, and whether this is something that he would want done. He agreed that tracheostomy and long-term vent weaning is something that he would be ok with if it came down to it. Since intubation, he has improved markedly. He was continued on treatment for COVID with Remdesivir, steroids, and azithromycin and has completed his courses of eac h of these. His inflammtory markers have been downtrending with the exception of D-dimer which is uptrending slowly. His WBC was previously trending down, but increased sharply from 15 to 19 today. He has also been fevering since about 03:00 this AM. His Abx were broadened out to Vanc/Cefepime this AM and repeat Blood and sputum cultures were obtained. I spoke to his on the phone this afternoon [09/05] and updated her on his status. # COVID-19 Pneumonia # Acute Hypoxemic Respiratory Failure # Need for Mechanical Ventilation # Pneumomediastinum without pneumothorax # Leukocytosis/Fever # HTN # HLD # Anxiety PLAN: - continue mechanical ventilation. - TeleMed Burner Technician for assistance with vent management; Pt is gradually weaning down - Keep Pplat < 30 to limit risk of pneumothorax and barotrauma. - If patient decompensates and becomes markedly hypoxemia and/or hypotension, think Tension Pneumo and perform emergent needle decompression - continue Zinc, and Vitamin C - Pt has completed his course of Remdesivir. Will discontinue - s/p 1u CCP - discontinue Rocephin and Azithromycin - Start Vanc/Cefepime for empiric broad spectrum coverage - follow repeat blood/sputum cultures - continue Propofol/Fentanyl for sedation/analgesia; precedex is available for backup sedation if needed - continue IV Vecuronium 15mg q1h + IV Vec 2mg q30min PRN - continue ASA 81 - Pt may benefit from occasional diuresis to keep him on the dipper and drier side - trend COVID markers q48h - CXR q48h and PRN - start TF per dietary rec's Sedation: propofol/precedex Analgesia: Fent VTE ppx: Lovenox GI ppx: Pepcid Diet: TF per dietary recs CODE: tension worker Spent: > 40 minutes between evaluation, coordination of care, and documentation J[place] DE LA PAZ MD Sep 05, 2020 22:13
[2020-09-06] VITALS (43 sets, daily range): BP systolic 88–144; BP diastolic 47–70
[2020-09-06] MEDS: NORCURON IV PRN ×5 (00:44→20:08)
[2020-09-06] MEDS: MAXIPIME 2 GM in NS 100ML 100 ML IV SCH ×3 (01:30→17:30)
--- NOTE | 2020-09-06 02:10 | NUR ---
pt desat to 80% at this time after laying flat for approx 3 minutes. raised hob and performed inline suction. pt unable to recover O2 sat. called rt. rt at bedside and pt able to recover O2 sat to 90% after approx 15 min.
[2020-09-06] MEDS: DUO 0.5-3(2.5) MG/3 ML IH SCH ×3 (04:37→15:40)
--- NOTE | 2020-09-06 04:45 | NUR ---
pt desat to 70's when turning to finish placing clean linens on bed. Pt unable to recover sats for 15 minutes. RT at bedside bagging pt to get sats up to 88%. Will notify physician of changes to pt status.
[2020-09-06] MEDS: DIPRIVAN IV PRN ×2 (05:00→14:55)
[2020-09-06 05:04] LABS: BASOPHIL % 0.1 % (0.0-0.2); EOSINOPHIL # 0.1 10^3/uL (0.0-0.2); EOSINOPHIL % 0.4 % (0.0-5.0); LYMPHOCYTES # 0.84 10^3/uL1 (1.0-4.8); LYMPHOCYTES % 6.1 % (24.0-44.0); MEAN CORP HGB 31.9 pg (26-34); MONOCYTES # 0.4 10^3/uL (0.3-0.8); MONOCYTES % 2.7 % (5.0-12.0); NEUTROPHIL # 12.4 10^3/uL (1.8-7.7); NEUTROPHILS % 89.3 % (41.0-85.0); PLATELET COUNT 159 10^3/uL (150-400); RED CELL DISTRIBUTION WIDTH 12.4 % (11.5-14.5)
--- NOTE | 2020-09-06 06:00 | NUR ---
Notified Dr. Rosales of change in status. No new orders recieved at this time.
[2020-09-06] MEDS: SUBLIMAZE 1,000 MCG in NS 100ML 80 ML IV SCH ×2 (06:53→18:52)
[2020-09-06 07:09] LABS: CALCIUM 7.9 mg/dL (8.4-10.5); CARBON DIOXIDE 30.5 mmol/L (20.0-32)
--- NOTE | 2020-09-06 08:25 | TELE.CONS ---
Consultation Reason for Consult: Reason for Consultation: resp failure, covid History of Present Illness History of Patient Comments patient remains intubated now on 100% and PEEP 14, f 26 but continues to desaturate. Review of Systems Allergies: Coded Allergies: Sulfa (Sulfonamide Antibiotics) (Verified Allergy, Mild, 08/31/20) Scheduled Atorvastatin 10MG (Lipitor 10MG), 1 TAB PO HS, (Reported) Bisoprolol Fumarate/Hctz (Bisoprolol-Hctz 5-6.25 Mg Tab), 1 TAB PO DAILY, (Reported) Temazepam (Restoril), 1 CAP PO HS, (Reported) VITALS REVIEW VITALS Vital Sign - Last 24 Hours 08/31/20 08/31/20 08/31/20 08/31/20 00:59 00:59 00:59 01:31 Temp 99.3 99.1 99.1 99.1 Pulse 96 96 96 89 Resp 22 22 22 22 B/P (MAP) 154/64 (94) 133/78 (96) Pulse Ox 85 85 85 O2 Delivery Non-Rebreather Non-Rebreather O2 Flow Rate 15.00 15.00 08/31/20 08/31/20 08/31/20 08/31/20 02:09 03:00 03:05 03:25 Temp 99.2 99.2 99.6 Pulse 85 86 102 Resp 23 22 22 B/P (MAP) 130/82 (98) 135/75 (95) 159/87 (111) Pulse Ox 90 91 90 O2 Delivery Non-Rebreather Bi-pap Non-Rebreather Non-Rebreather O2 Flow Rate 15.00 100.00 15.00 15.00 08/31/20 08/31/20 08/31/20 08/31/20 04:27 04:48 04:56 06:14 Temp 99.3 Pulse 92 114 85 Resp 30 42 22 B/P (MAP) 136/82 (100) Pulse Ox 86 88 90 O2 Delivery Comfort Ryne S/T Non-Rebreather S/T O2 Flow Rate 60.00 15.00 FiO2 100 100 100 08/31/20 08/31/20 08/31/20 08/31/20 08:08 08:30 08:54 08:54 Pulse 111 114 Resp 39 44 B/P (MAP) 141/91 Pulse Ox 91 91 O2 Delivery Bi-pap 08/31/20 08/31/20 08/31/20 08/31/20 08:57 08:57 09:03 11:27 Temp 100.0 Pulse 119 110 103 104 Resp 44 45 60 36 B/P (MAP) 141/91 (108) Pulse Ox 90 87 89 94 O2 Delivery CPAP CPAP FiO2 100 100 08/31/20 08/31/20 08/31/20 08/31/20 11:49 14:30 15:23 15:45 Temp 98.5 Pulse 111 92 91 Resp 58 49 49 B/P (MAP) 119/85 (96) Pulse Ox 89 90 90 O2 Delivery CPAP FiO2 100 08/31/20 08/31/20 08/31/20 08/31/20 15:52 16:00 16:00 16:30 Temp 97.3 98.0 Pulse 93 85 92 Resp 44 55 40 B/P (MAP) 145/95 (112) 128/78 (95) Pulse Ox 89 91 91 O2 Delivery Bi-pap 08/31/20 08/31/20 08/31/20 08/31/20 16:34 16:45 16:49 17:00 Pulse 86 86 98 89 Resp 62 34 42 B/P (MAP) 127/82 (97) Pulse Ox 90 89 88 93 08/31/20 08/31/20 08/31/20 08/31/20 17:01 17:02 17:02 17:04 Pulse 93 99 101 87 Resp 39 39 38 37 B/P (MAP) 128/78 (95) Pulse Ox 92 91 91 90 O2 Delivery CPAP FiO2 100 08/31/20 08/31/20 08/31/20 08/31/20 17:15 17:19 17:30 17:34 Pulse 83 89 91 88 Resp 78 34 32 B/P (MAP) 136/109 (118) 134/78 (96) Pulse Ox 90 87 89 88 08/31/20 08/31/20 08/31/20 08/31/20 17:45 17:49 18:00 18:02 Pulse 89 87 89 92 Resp 69 54 47 B/P (MAP) 134/91 (105) Pulse Ox 86 89 88 89 O2 Delivery CPAP FiO2 100 08/31/20 08/31/20 08/31/20 08/31/20 18:04 18:15 18:19 19:34 Pulse 84 86 77 82 Resp 43 26 39 49 B/P (MAP) 138/68 (91) 125/58 (80) 117/74 (88) Pulse Ox 88 91 90 93 08/31/20 08/31/20 08/31/20 08/31/20 19:45 19:49 20:00 20:00 Pulse 74 69 97 Resp 41 42 57 B/P (MAP) 118/69 (85) Pulse Ox 94 92 86 O2 Delivery C-Pap 08/31/20 08/31/20 08/31/20 08/31/20 20:04 20:15 20:19 20:30 Pulse 87 71 81 81 Resp 37 28 41 B/P (MAP) 121/77 (92) 124/69 (87) Pulse Ox 88 93 91 91 08/31/20 08/31/20 08/31/20 08/31/20 20:34 20:45 20:49 20:50 Temp 97.0 Pulse 78 76 84 Resp 43 48 B/P (MAP) 124/69 (87) 115/79 (91) Pulse Ox 90 93 91 08/31/20 08/31/20 08/31/20 08/31/20 21:00 21:04 21:15 21:19 Pulse 82 88 86 86 Resp 47 57 26 40 B/P (MAP) 126/84 (98) 138/72 (94) Pulse Ox 91 87 89 87 08/31/20 08/31/20 08/31/20 08/31/20 21:30 21:34 21:45 21:45 Pulse 99 92 88 98 Resp 42 33 83 B/P (MAP) 142/85 (104) Pulse Ox 88 89 91 89 O2 Delivery CPAP FiO2 100 08/31/20 08/31/20 08/31/20 09/01/20 22:44 22:46 22:46 00:00 Temp 98.4 Pulse 88 88 88 Resp 33 33 33 Pulse Ox 90 90 91 09/01/20 09/01/20 09/01/20 09/01/20 00:00 00:30 04:00 04:00 Temp 98.1 Pulse 83 Resp 41 Pulse Ox 92 O2 Delivery C-Pap CPAP C-Pap FiO2 100 09/01/20 09/01/20 09/01/20 09/01/20 04:00 04:09 04:15 04:23 Pulse 73 94 86 76 Resp 43 36 27 50 B/P (MAP) 133/71 (91) 104/49 (67) Pulse Ox 92 83 89 91 09/01/20 09/01/20 09/01/20 09/01/20 04:30 04:39 04:45 04:54 Pulse 82 96 94 Resp 42 48 B/P (MAP) 131/87 (102) 105/43 (63) Pulse Ox 91 82 86 85 09/01/20 09/01/20 09/01/20 09/01/20 05:00 05:00 05:08 05:15 Pulse 84 103 110 99 Resp 40 47 73 46 B/P (MAP) 120/75 (90) Pulse Ox 93 85 83 90 O2 Delivery CPAP FiO2 100 09/01/20 09/01/20 09/01/20 09/01/20 05:23 05:30 05:38 05:45 Pulse 102 88 94 88 Resp 28 33 47 B/P (MAP) 110/66 (81) 118/71 (87) Pulse Ox 79 82 88 91 09/01/20 09/01/20 09/01/20 09/01/20 05:53 07:15 09:36 09:36 Pulse 98 111 107 Resp 45 45 B/P (MAP) 116/76 (89) Pulse Ox 87 91 90 O2 Delivery C-Pap 09/01/20 09/01/20 09/01/20 09/01/20 09:37 10:47 11:00 11:48 Pulse 111 76 76 Resp 51 22 22 Pulse Ox 91 91 91 O2 Delivery CPAP Mechanical Ventilator FiO2 100 100 100 09/01/20 09/01/20 09/01/20 09/01/20 14:50 14:50 14:50 14:54 Pulse 74 74 76 74 Resp 22 22 22 22 Pulse Ox 94 94 91 94 FiO2 100 09/01/20 09/01/20 09/01/20 09/01/20 15:00 15:48 15:58 16:00 Pulse 102 73 75 Resp 25 24 B/P (MAP) 107/69 (82) Pulse Ox 91 95 95 O2 Delivery Mechanical Ventilator 09/01/20 09/01/20 09/01/20 09/01/20 16:01 16:04 16:07 16:10 Pulse 77 75 78 73 Resp 23 23 24 22 B/P (MAP) 104/66 (79) 102/63 (76) 104/58 (73) 102/62 (75) Pulse Ox 95 95 95 95 09/01/20 09/01/20 09/01/20 09/01/20 16:13 16:15 16:16 16:19 Pulse 72 77 77 77 Resp 21 23 23 22 B/P (MAP) 101/62 (75) 107/61 (76) 100/61 (74) Pulse Ox 95 95 95 96 09/01/20 09/01/20 09/01/20 09/01/20 16:22 16:25 16:28 16:30 Pulse 78 76 77 78 Resp 23 24 23 23 B/P (MAP) 100/60 (73) 105/61 (76) 101/65 (77) Pulse Ox 95 95 95 95 09/01/20 09/01/20 09/01/20 09/01/20 16:31 16:34 16:37 16:56 Pulse 77 77 79 73 Resp 24 24 23 22 B/P (MAP) 102/61 (75) 101/64 (76) 98/62 (74) Pulse Ox 95 96 95 93 FiO2 100 09/01/20 09/01/20 09/01/20 09/01/20 19:13 19:15 19:16 19:19 Pulse 67 79 81 73 Resp 22 24 25 B/P (MAP) 106/72 (83) 112/67 (82) 105/60 (75) Pulse Ox 96 85 91 92 09/01/20 09/01/20 09/01/20 09/01/20 19:22 19:25 19:28 19:30 Pulse 74 71 73 73 Resp 24 23 23 24 B/P (MAP) 105/60 (75) 106/61 (76) 106/62 (77) Pulse Ox 91 91 91 92 09/01/20 09/01/20 09/01/20 09/01/20 19:31 19:34 19:37 19:40 Pulse 72 72 72 71 Resp 23 23 23 23 B/P (MAP) 106/62 (77) 107/64 (78) 102/60 (74) 105/61 (76) Pulse Ox 92 92 92 92 09/01/20 09/01/20 09/01/20 09/01/20 19:43 19:45 19:46 19:49 Pulse 72 71 71 72 Resp 22 23 24 24 B/P (MAP) 108/59 (75) 107/61 (76) 106/61 (76) Pulse Ox 92 92 92 92 09/01/20 09/01/20 09/01/20 09/01/20 19:52 19:55 19:58 20:00 Pulse 72 72 73 72 Resp 23 23 23 26 B/P (MAP) 104/64 (77) 104/63 (77) 100/62 (75) Pulse Ox 92 92 91 92 FiO2 100 09/01/20 09/01/20 09/01/20 09/01/20 20:00 20:13 20:15 20:16 Pulse 72 73 73 Resp 23 23 23 B/P (MAP) 105/61 (76) 106/63 (77) Pulse Ox 90 90 90 O2 Delivery Mechanical Ventilator 09/01/20 09/01/20 09/01/20 09/01/20 20:19 20:22 20:25 20:28 Pulse 73 72 73 72 Resp 22 22 23 23 B/P (MAP) 105/63 (77) 104/62 (76) 106/61 (76) 102/62 (75) Pulse Ox 90 91 90 91 09/01/20 09/01/20 09/01/20 09/01/20 20:30 20:31 20:34 20:37 Pulse 71 72 69 73 Resp 23 23 22 22 B/P (MAP) 107/66 (80) 103/55 (71) 99/57 (71) Pulse Ox 91 91 90 90 09/01/20 09/01/20 09/01/20 09/01/20 20:40 20:43 20:45 20:46 Pulse 71 70 77 72 Resp 22 22 22 22 B/P (MAP) 105/61 (76) 103/62 (76) 111/64 (80) Pulse Ox 90 90 91 92 09/01/20 09/01/20 09/01/20 09/01/20 20:49 20:52 20:55 20:58 Pulse 73 73 67 74 Resp 22 22 22 23 B/P (MAP) 104/61 (75) 108/62 (77) 111/63 (79) 108/63 (78) Pulse Ox 92 92 93 92 09/01/20 09/01/20 09/01/20 09/01/20 21:10 21:11 21:12 21:12 Pulse 74 74 74 74 Resp 22 22 22 22 Pulse Ox 91 91 91 91 FiO2 100 09/01/20 09/01/20 09/01/20 09/01/20 21:46 21:49 21:52 21:55 Pulse 80 80 79 79 Resp 22 22 22 22 B/P (MAP) 106/62 (77) 110/63 (79) 109/63 (78) 110/58 (75) Pulse Ox 91 92 91 91 09/01/20 09/01/20 09/01/20 09/01/20 21:58 22:00 22:01 22:04 Pulse 79 78 80 80 Resp 22 22 22 23 B/P (MAP) 108/59 (75) 108/64 (79) 106/60 (75) Pulse Ox 92 92 92 92 09/01/20 09/01/20 09/01/20 09/01/20 22:07 22:10 22:13 22:15 Pulse 81 79 77 80 Resp 25 24 24 23 B/P (MAP) 107/61 (76) 107/63 (78) 110/65 (80) Pulse Ox 92 92 92 92 09/01/20 09/01/20 09/01/20 09/01/20 22:16 22:19 22:22 22:25 Pulse 79 80 80 77 Resp 24 25 24 25 B/P (MAP) 106/60 (75) 111/61 (78) 109/62 (78) 109/61 (77) Pulse Ox 92 92 92 92 09/01/20 09/01/20 09/01/20 09/01/20 22:28 22:30 22:31 22:34 Pulse 77 80 78 78 Resp 24 24 24 23 B/P (MAP) 110/67 (81) 106/63 (77) 110/63 (79) Pulse Ox 92 92 92 92 09/01/20 09/01/20 09/01/20 09/01/20 23:10 23:30 23:31 23:34 Pulse 76 77 74 76 Resp 22 22 23 26 B/P (MAP) 113/62 (79) 107/62 (77) Pulse Ox 92 92 92 92 FiO2 100 09/01/20 09/01/20 09/01/20 09/01/20 23:37 23:40 23:43 23:45 Pulse 76 76 73 75 Resp 27 B/P (MAP) 109/61 (77) 109/58 (75) 112/62 (79) Pulse Ox 92 93 93 93 09/01/20 09/01/20 09/01/20 09/01/20 23:46 23:49 23:52 23:55 Pulse 74 74 83 72 Resp B/P (MAP) 112/59 (76) 113/66 (82) 116/67 (83) 117/66 (83) Pulse Ox 93 93 94 93 09/01/20 09/02/20 09/02/20 09/02/20 23:58 00:00 00:00 00:13 Pulse 78 80 75 Resp B/P (MAP) 118/65 (82) 114/66 (82) Pulse Ox 93 93 93 O2 Delivery Mechanical Ventilator FiO2 100 09/02/20 09/02/20 09/02/20 09/02/20 00:15 00:16 00:19 00:22 Pulse 76 77 75 75 Resp B/P (MAP) 118/65 (82) 114/67 (83) 119/63 (81) Pulse Ox 93 93 92 93 09/02/20 09/02/20 09/02/20 09/02/20 00:25 00:28 00:30 00:31 Pulse 76 75 76 77 Resp B/P (MAP) 117/68 (84) 115/65 (82) 115/64 (81) Pulse Ox 93 92 92 92 09/02/20 09/02/20 09/02/20 09/02/20 00:34 00:37 00:40 00:43 Pulse 77 80 79 80 Resp B/P (MAP) 112/62 (79) 110/63 (79) 110/63 (79) 107/64 (78) Pulse Ox 93 92 92 92 09/02/20 09/02/20 09/02/20 09/02/20 00:45 00:46 00:49 00:52 Pulse 82 81 79 80 Resp 24 B/P (MAP) 108/63 (78) 109/61 (77) 107/67 (80) Pulse Ox 92 92 92 93 09/02/20 09/02/20 09/02/2022/20 00:55 00:58 01:13 01:15 Pulse 80 77 80 73 Resp 22 B/P (MAP) 109/65 (80) 109/63 (78) 114/60 (78) Pulse Ox 92 93 88 91 09/02/20 09/02/20 09/02/20 09/02/20 01:16 01:19 01:22 01:25 Pulse 76 77 75 74 Resp B/P (MAP) 107/64 (78) 108/59 (75) 110/63 (79) 109/62 (78) Pulse Ox 92 92 92 93 09/02/20 09/02/20 09/02/20 09/02/20 01:28 01:30 01:31 01:34 Pulse 73 73 75 77 Resp B/P (MAP) 110/61 (77) 109/63 (78) 107/61 (76) Pulse Ox 92 92 92 93 09/02/20 09/02/20 09/02/20 09/02/20 01:37 01:40 01:43 01:45 Pulse 76 76 75 74 Resp B/P (MAP) 105/64 (78) 105/62 (76) 104/63 (77) Pulse Ox 93 92 92 92 09/02/20 09/02/20 09/02/20 09/02/20 01:46 01:49 01:52 01:55 Pulse 75 77 79 75 Resp B/P (MAP) 113/62 (79) 108/64 (79) 107/61 (76) 107/62 (77) Pulse Ox 92 93 93 93 09/02/20 09/02/20 09/02/20 09/02/20 01:58 02:20 02:25 02:28 Pulse 76 79 74 71 Resp 22 B/P (MAP) 110/61 (77) 104/61 (75) 104/59 (74) Pulse Ox 92 93 93 93 FiO2 100 09/02/20 09/02/20 09/02/20 09/02/20 02:30 02:31 02:34 02:37 Pulse 73 70 69 70 Resp B/P (MAP) 104/59 (74) 103/60 (74) 102/58 (73) Pulse Ox 93 93 93 93 09/02/20 09/02/20 09/02/20 09/02/20 02:40 02:43 02:45 02:46 Pulse 70 73 73 71 Resp 23 B/P (MAP) 105/60 (75) 103/59 (74) 102/60 (74) Pulse Ox 93 93 93 93 09/02/20 09/02/20 09/02/20 09/02/20 02:49 02:52 02:55 02:58 Pulse 72 74 75 72 Resp 23 B/P (MAP) 105/60 (75) 101/59 (73) 102/56 (71) 103/55 (71) Pulse Ox 93 93 93 93 09/02/20 09/02/20 09/02/20 09/02/20 03:00 03:01 03:04 03:07 Pulse 73 71 69 70 Resp B/P (MAP) 102/58 (73) 100/57 (71) 99/57 (71) Pulse Ox 93 93 93 93 09/02/20 09/02/20 09/02/20 09/02/20 03:10 03:13 03:22 03:25 Pulse 70 71 71 69 Resp B/P (MAP) 99/59 (72) 102/56 (71) 100/60 (73) 102/60 (74) Pulse Ox 93 93 93 93 09/02/20 09/02/20 09/02/20 09/02/20 03:28 03:29 03:31 03:34 Pulse 69 71 70 69 Resp B/P (MAP) 102/58 (73) 103/56 (72) 101/60 (74) Pulse Ox 93 93 93 93 09/02/20 09/02/20 09/02/20 09/02/20 03:37 03:40 03:43 03:44 Pulse 71 69 72 70 Resp 23 B/P (MAP) 105/61 (76) 105/54 (71) 102/58 (73) Pulse Ox 93 93 93 92 09/02/20 09/02/20 09/02/20 09/02/20 03:46 03:49 03:52 03:55 Pulse 69 71 74 75 Resp 23 B/P (MAP) 104/59 (74) 101/56 (71) 104/58 (73) 102/59 (73) Pulse Ox 93 93 93 93 09/02/20 09/02/20 09/02/20 09/02/20 03:58 03:59 04:00 04:00 Pulse 72 76 80 Resp 27 B/P (MAP) 104/56 (72) Pulse Ox 92 93 93 O2 Delivery Mechanical Ventilator FiO2 100 09/02/20 09/02/20 09/02/20 09/02/20 04:01 04:04 04:04 04:08 Pulse 75 87 Resp 22 22 B/P (MAP) 103/61 (75) 107/56 (73) 107/56 (73) Pulse Ox 92 90 90 94 09/02/20 09/02/20 09/02/20 09/02/20 04:08 04:09 04:09 04:22 Temp 98.8 Pulse 87 Resp 22 B/P (MAP) 123/65 (84) Pulse Ox 94 92 92 09/02/20 09/02/20 09/02/20 09/02/20 04:24 04:28 04:30 04:31 Temp 98.8 98.6 98.6 98.6 Pulse 123 120 126 115 Resp B/P (MAP) 128/73 (91) 121/77 (92) 129/70 (89) Pulse Ox 97 98 98 98 09/02/20 09/02/20 09/02/20 09/02/20 04:34 04:37 04:40 04:43 Temp 98.6 98.6 98.6 98.6 Pulse 114 105 97 94 Resp B/P (MAP) 127/83 (98) 127/82 (97) 118/63 (81) 115/64 (81) Pulse Ox 97 98 97 97 09/02/20 09/02/20 09/02/20 09/02/20 04:45 04:46 04:49 04:49 Temp 98.6 98.6 98.6 Pulse 94 92 87 118 Resp B/P (MAP) 118/72 (87) 139/87 (104) Pulse Ox 97 96 94 98 FiO2 100 09/02/20 09/02/20 09/02/20 09/02/20 04:52 04:55 04:58 05:07 Temp 98.6 98.6 98.6 98.6 Pulse 122 116 104 90 Resp 34 36 32 28 B/P (MAP) 144/95 (111) 130/74 (92) 123/66 (85) 113/67 (82) Pulse Ox 98 98 98 97 09/02/20 09/02/20 09/02/20 09/02/20 05:10 05:13 05:15 05:16 Temp 98.6 98.6 98.6 98.6 Pulse 105 99 122 104 Resp B/P (MAP) 130/76 (94) 129/77 (94) 129/72 (91) Pulse Ox 97 97 98 97 09/02/20 09/02/20 09/02/20 09/02/20 05:19 05:22 05:25 05:28 Temp 98.6 98.6 98.6 98.6 Pulse 104 112 113 95 Resp B/P (MAP) 125/74 (91) 140/95 (110) 136/70 (92) 119/62 (81) Pulse Ox 98 98 98 97 09/02/20 09/02/20 09/02/20 09/02/20 05:30 05:31 05:34 05:37 Temp 98.6 98.6 98.6 98.6 Pulse 93 91 92 93 Resp B/P (MAP) 113/65 (81) 113/62 (79) 118/66 (83) Pulse Ox 97 97 97 97 09/02/20 09/02/20 09/02/20 09/02/20 05:40 05:43 05:45 05:46 Temp 98.6 98.6 98.6 98.6 Pulse 105 103 96 95 Resp B/P (MAP) 125/74 (91) 136/83 (100) 116/66 (83) Pulse Ox 98 98 98 98 09/02/20 09/02/20 09/02/20 09/02/20 05:49 05:52 07:00 07:00 Temp 98.6 98.6 Pulse 90 91 80 Resp B/P (MAP) 116/64 (81) 111/57 (75) Pulse Ox 97 97 93 O2 Delivery Mechanical Ventilator FiO2 100 11/09/02/20 09/02/20 09/02/20 07:21 07:21 07:28 07:30 Temp 99.0 99.0 Pulse 98 98 83 87 Resp B/P (MAP) 112/65 (81) Pulse Ox 97 97 97 97 FiO2 100 09/02/20 09/02/20 09/02/20 09/02/20 07:31 07:34 07:37 07:40 Temp 99.0 99.0 99.0 99.1 Pulse 80 80 80 78 Resp 23 B/P (MAP) 106/60 (75) 108/62 (77) 107/56 (73) 112/65 (81) Pulse Ox 97 97 97 97 09/02/20 09/02/20 09/02/20 09/02/20 07:43 07:45 07:46 07:49 Temp 99.1 99.1 99.1 99.1 Pulse 81 78 85 84 Resp B/P (MAP) 106/58 (74) 108/60 (76) 107/60 (76) Pulse Ox 97 97 97 97 09/02/20 09/02/20 09/02/20 09/02/20 07:52 07:55 07:58 08:00 Temp 99.1 99.1 99.3 99.1 Pulse 83 100 94 87 Resp 34 43 26 45 B/P (MAP) 106/59 (75) 113/71 (85) 107/67 (80) Pulse Ox 97 97 97 97 09/02/20 09/02/20 09/02/20 09/02/20 08:01 08:04 08:07 08:10 Temp 99.1 99.3 99.1 99.1 Pulse 84 84 83 83 Resp 36 36 25 28 B/P (MAP) 105/57 (73) 99/60 (73) 103/62 (76) 101/51 (68) Pulse Ox 97 96 97 96 09/02/20 09/02/20 09/02/20 09/02/20 08:13 08:30 08:31 08:34 Temp 99.1 99.3 99.3 99.3 Pulse 84 84 83 82 Resp 24 B/P (MAP) 102/53 (69) 104/59 (74) 103/56 (72) Pulse Ox 96 96 96 96 09/02/20 09/02/20 09/02/20 09/02/20 08:37 08:40 08:43 08:45 Temp 99.3 99.3 99.3 99.3 Pulse 80 84 84 83 Resp B/P (MAP) 97/54 (68) 103/54 (70) 97/58 (71) Pulse Ox 96 96 96 96 09/02/20 09/02/20 09/02/20 09/02/20 08:46 08:49 08:52 08:55 Temp 99.3 99.3 99.3 99.3 Pulse 82 83 83 84 Resp B/P (MAP) 97/55 (69) 97/55 (69) 100/58 (72) 96/59 (71) Pulse Ox 96 96 96 96 09/02/20 09/02/20 09/02/20 09/02/20 08:58 09:00 09:01 09:04 Temp 99.3 99.3 99.5 99.3 Pulse 83 90 95 98 Resp B/P (MAP) 102/57 (72) 130/76 (94) 133/81 (98) Pulse Ox 96 97 97 97 09/02/20 09/02/20 09/02/20 09/02/20 09:06 09:06 09:07 09:10 Temp 99.3 99.3 Pulse 99 98 99 95 Resp B/P (MAP) 135/76 (95) 136/79 (98) Pulse Ox 97 97 97 98 09/02/20 09/02/20 09/02/20 09/02/20 09:13 09:15 09:15 09:16 Temp 99.3 99.3 99.3 99.3 Pulse 85 102 102 84 Resp 30 B/P (MAP) 145/91 (109) 131/78 (95) Pulse Ox 98 98 98 97 09/02/20 09/02/20 09/02/20 09/02/20 09:16 09:30 09:32 09:45 Temp 99.3 99.1 99.1 99.3 Pulse 84 82 84 80 Resp B/P (MAP) 131/78 (95) 114/63 (80) Pulse Ox 97 97 98 98 09/02/20 09/02/20 09/02/20 09/02/20 09:47 09:59 10:00 10:02 Temp 99.3 99.3 99.3 Pulse 79 83 81 80 Resp B/P (MAP) 114/62 (79) 110/61 (77) Pulse Ox 98 98 98 98 FiO2 100 09/02/20 09/02/20 09/02/20 09/02/20 10:15 10:15 10:17 10:17 Temp 99.3 99.3 99.3 99.3 Pulse 84 84 83 83 Resp B/P (MAP) 114/61 (78) 114/61 (78) Pulse Ox 97 97 98 98 09/02/20 09/02/20 09/02/20 09/02/20 10:30 10:30 10:32 10:45 Temp 99.3 99.3 99.3 Pulse 84 82 85 Resp B/P (MAP) 111/61 (78) Pulse Ox 97 97 97 FiO2 90 09/02/20 09/02/20 09/02/20 09/02/20 10:47 11:00 11:02 11:15 Temp 99.3 99.3 99.5 99.5 Pulse 84 89 87 91 Resp B/P (MAP) 108/60 (76) 111/61 (78) Pulse Ox 97 97 96 95 09/02/20 09/02/20 09/02/20 09/02/20 11:17 11:26 11:26 11:30 Temp 99.5 Pulse 87 80 80 Resp B/P (MAP) 111/67 (82) Pulse Ox 95 93 93 O2 Delivery Mechanical Ventilator FiO2 100 90 09/02/20 09/02/20 09/02/20 09/02/20 11:30 11:32 11:39 11:45 Temp 99.5 99.5 99.5 Pulse 83 85 90 85 Resp B/P (MAP) 118/68 (85) Pulse Ox 96 95 97 97 FiO2 90 09/02/20 09/02/20 09/02/20 09/02/20 11:45 11:47 11:47 12:00 Temp 99.5 99.5 99.5 99.5 Pulse 85 89 89 84 Resp B/P (MAP) 126/69 (88) 126/69 (88) Pulse Ox 97 96 96 97 09/02/20 09/02/20 09/02/20 09/02/20 12:02 12:15 12:17 12:30 Temp 99.5 99.5 99.5 99.3 Pulse 83 81 82 86 Resp B/P (MAP) 121/68 (85) 120/67 (84) Pulse Ox 97 97 97 96 09/02/20 09/02/20 09/02/20 09/02/20 12:32 12:45 12:47 13:00 Temp 99.3 99.3 99.3 99.3 Pulse 81 82 79 82 Resp B/P (MAP) 116/71 (86) 113/70 (84) Pulse Ox 96 96 96 96 09/02/20 09/02/20 09/02/20 09/02/20 13:02 13:47 14:00 14:02 Temp 99.3 99.3 99.3 99.5 Pulse 81 75 79 73 Resp B/P (MAP) 111/65 (80) 113/66 (82) 113/65 (81) Pulse Ox 95 97 97 96 09/02/20 09/02/20 09/02/20 09/02/20 14:11 14:15 14:17 14:30 Temp 99.5 99.5 99.5 Pulse 78 80 76 81 Resp B/P (MAP) 119/71 (87) Pulse Ox 98 96 97 95 FiO2 90 09/02/20 09/02/20 09/02/20 09/02/20 14:32 14:45 14:47 15:00 Temp 99.5 99.7 99.7 99.7 Pulse 79 77 78 87 Resp B/P (MAP) 112/67 (82) 115/68 (84) Pulse Ox 96 96 96 09/02/20 09/02/20 09/02/20 09/02/20 15:02 15:15 15:17 15:30 Temp 99.7 99.7 99.7 99.7 Pulse 66 69 67 76 Resp B/P (MAP) 119/67 (84) 119/70 (86) Pulse Ox 93 96 96 97 09/02/20 09/02/20 09/02/20 09/02/20 15:32 15:45 15:47 15:48 Temp 99.7 99.7 99.7 Pulse 76 76 80 78 Resp B/P (MAP) 115/69 (84) 116/67 (83) Pulse Ox 97 97 97 96 09/02/20 09/02/20 09/02/20 09/02/20 15:48 15:51 16:00 16:02 Temp 99.9 99.9 Pulse 78 77 76 77 Resp B/P (MAP) 113/70 (84) Pulse Ox 96 97 97 97 FiO2 90 09/02/20 09/02/20 09/02/20 09/02/20 16:15 16:17 16:26 16:26 Temp 99.9 99.9 Pulse 79 79 80 Resp 09 23 27 B/P (MAP) 113/68 (83) Pulse Ox 97 97 93 O2 Delivery Mechanical Ventilator FiO2 90 09/02/20 09/02/20 09/02/20 09/02/20 16:30 16:45 16:47 17:00 Temp 100.0 100.0 100.0 100.0 Pulse 82 80 78 78 Resp B/P (MAP) 115/65 (82) Pulse Ox 97 97 97 97 09/02/20 09/02/20 09/02/20 09/02/20 17:02 17:15 17:17 17:29 Temp 100.0 100.2 100.2 Pulse 75 74 75 69 Resp 04 22 22 B/P (MAP) 120/73 (89) 116/73 (87) Pulse Ox 97 97 97 98 FiO2 90 09/02/20 09/02/20 09/02/20 09/02/20 17:30 17:30 17:32 17:45 Temp 100.2 100.2 100.4 Pulse 69 74 69 71 Resp B/P (MAP) 118/73 (88) Pulse Ox 98 97 97 97 O2 Delivery Mechanical Ventilator FiO2 90 09/02/20 09/02/20 09/02/20 09/02/20 17:47 18:00 18:02 18:15 Temp 100.4 100.4 100.4 100.4 Pulse 70 68 68 72 Resp B/P (MAP) 118/70 (86) 117/72 (87) Pulse Ox 97 98 98 98 09/02/20 09/02/20 09/02/20 09/02/20 18:17 18:47 19:02 19:17 Temp 100.4 100.4 100.4 100.4 Pulse 68 63 63 61 Resp 14 B/P (MAP) 117/71 (86) 119/74 (89) 117/76 (90) 121/77 (92) Pulse Ox 98 97 97 97 09/02/20 09/02/20 09/02/20 09/02/20 19:32 19:47 20:00 20:00 Temp 100.4 100.6 Pulse 61 60 62 Resp 21 B/P (MAP) 121/72 (88) 117/73 (88) Pulse Ox 97 97 99 O2 Delivery Mechanical Ventilator 09/02/20 09/02/20 09/02/20 09/02/20 20:00 20:00 20:00 20:02 Temp 100.6 Pulse 60 57 57 63 Resp B/P (MAP) 116/70 (85) Pulse Ox 96 98 98 98 FiO2 90 90 09/02/20 09/02/20 09/02/20 09/02/20 20:17 20:32 20:47 21:02 Temp 100.6 100.6 100.6 100.6 Pulse 59 59 60 59 Resp B/P (MAP) 120/72 (88) 116/71 (86) 117/71 (86) 117/73 (88) Pulse Ox 98 98 98 98 09/02/20 09/02/20 09/02/20 09/02/20 21:17 21:32 21:47 22:02 Temp 100.8 100.8 100.8 100.8 Pulse 58 59 61 58 Resp B/P (MAP) 122/73 (89) 117/69 (85) 116/72 (87) 117/72 (87) Pulse Ox 98 97 97 97 09/02/20 09/02/20 09/02/20 09/02/20 22:17 22:30 22:37 22:47 Temp 100.8 100.6 100.4 Pulse 55 68 81 60 Resp B/P (MAP) 125/72 (89) 130/61 (84) 133/75 (94) Pulse Ox 98 96 75 97 FiO2 90 09/02/20 09/02/20 09/02/20 09/02/20 23:02 23:11 23:11 23:17 Temp 100.2 100.0 Pulse 65 68 63 Resp B/P (MAP) 133/76 (95) 129/70 (89) Pulse Ox 100 96 100 O2 Delivery Mechanical Ventilator FiO2 90 09/02/20 09/02/20 09/03/20 09/03/20 23:32 23:47 00:02 00:17 Temp 100.0 100.0 100.0 100.0 Pulse 65 66 60 60 Resp B/P (MAP) 120/62 (81) 112/66 (81) 118/69 (85) 118/74 (89) Pulse Ox 100 100 99 100 09/03/20 09/03/20 09/03/20 09/03/20 00:32 00:47 01:00 01:02 Temp 100.0 99.9 99.9 Pulse 59 59 62 58 Resp B/P (MAP) 117/72 (87) 116/66 (83) 118/66 (83) Pulse Ox 100 100 99 100 FiO2 90 09/03/20 09/03/20 09/03/20 09/03/20 01:17 01:32 02:02 02:17 Temp 99.9 99.9 99.9 99.9 Pulse 60 58 58 57 Resp B/P (MAP) 116/69 (85) 114/65 (81) 111/65 (80) 113/65 (81) Pulse Ox 100 100 99 100 09/03/20 09/03/20 09/03/20 09/03/20 02:32 02:47 03:00 03:00 Temp 99.9 99.9 Pulse 58 61 59 Resp B/P (MAP) 114/67 (83) 109/65 (80) Pulse Ox 100 99 100 O2 Delivery Mechanical Ventilator FiO2 90 09/03/20 09/03/20 09/03/20 09/03/20 03:00 03:00 03:00 03:02 Temp 99.9 Pulse 59 59 68 59 Resp 32 32 32 37 B/P (MAP) 130/72 (91) Pulse Ox 98 98 99 100 FiO2 90 09/03/20 09/03/20 09/03/20 09/03/20 03:18 03:48 04:02 04:17 Temp 99.5 Pulse 81 91 87 90 Resp 29 36 24 29 B/P (MAP) 125/76 (92) 93/58 (70) 107/67 (80) 112/69 (83) Pulse Ox 99 93 100 95 09/03/20 09/03/20 09/03/20 09/03/20 04:32 04:47 05:02 05:17 Pulse 63 59 66 61 Resp 27 24 26 26 B/P (MAP) 117/69 (85) 116/68 (84) 110/63 (79) 110/66 (81) Pulse Ox 100 100 100 100 09/03/20 09/03/20 09/03/20 09/03/20 05:32 05:47 05:50 05:50 Pulse 63 67 68 Resp 24 25 49 25 B/P (MAP) 119/60 (79) 108/66 (80) Pulse Ox 100 99 90 99 FiO2 90 09/03/20 09/03/20 09/03/20 09/03/20 06:02 06:17 08:00 08:00 Pulse 65 71 53 Resp 26 27 22 B/P (MAP) 110/65 (80) 106/66 (79) Pulse Ox 100 100 100 O2 Delivery Mechanical Ventilator FiO2 70 09/03/20 09/03/20 09/03/20 09/03/20 08:06 08:06 08:07 08:17 Pulse 61 61 61 61 Resp 26 26 25 25 Pulse Ox 98 98 98 98 O2 Delivery Mechanical Ventilator FiO2 90 90 09/03/20 09/03/20 09/03/20 09/03/20 10:21 12:00 12:00 13:50 Pulse 75 53 75 Resp 36 22 22 Pulse Ox 99 100 99 O2 Delivery Mechanical Ventilator FiO2 80 70 80 09/03/20 09/03/20 09/03/20 09/03/20 15:24 15:24 15:35 16:00 Pulse 58 75 58 53 Resp 31 22 31 22 Pulse Ox 99 99 99 100 FiO2 80 70 09/03/20 09/03/20 09/03/20 09/03/20 16:00 16:17 16:30 16:32 Temp 99.7 99.7 99.7 Pulse 63 57 60 Resp 50 48 82 B/P (MAP) 141/77 (98) 144/82 (102) Pulse Ox 99 100 99 O2 Delivery Mechanical Ventilator 09/03/20 09/03/20 09/03/20 09/03/20 16:45 16:47 17:00 17:02 Temp 99.7 99.7 99.7 99.7 Pulse 57 55 56 54 Resp 49 42 28 37 B/P (MAP) 145/79 (101) 143/79 (100) Pulse Ox 100 100 100 100 09/03/20 09/03/20 09/03/20 09/03/20 17:15 17:17 17:30 17:32 Temp 99.7 99.7 99.7 99.7 Pulse 70 65 57 60 Resp 22 22 25 30 B/P (MAP) 128/65 (86) 129/66 (87) Pulse Ox 99 100 100 100 09/03/20 09/03/20 09/03/20 09/03/20 17:45 17:47 17:52 18:00 Temp 99.5 99.5 99.5 Pulse 54 54 53 53 Resp B/P (MAP) 123/67 (85) Pulse Ox 100 100 100 100 FiO2 80 09/03/20 09/03/20 09/03/20 09/03/20 18:02 18:06 18:15 18:17 Temp 99.5 99.5 99.7 99.7 Pulse 52 54 53 53 Resp B/P (MAP) 129/67 (87) 126/66 (86) 128/68 (88) Pulse Ox 100 100 100 100 09/03/20 09/03/20 09/03/20 09/03/20 18:21 19:21 19:21 19:21 Temp 99.7 100.0 Pulse 53 52 52 Resp B/P (MAP) 130/72 (91) 131/74 (93) Pulse Ox 100 100 100 O2 Delivery Mechanical Ventilator FiO2 70 09/03/20 09/03/20 09/03/20 09/03/20 19:36 19:51 20:00 20:00 Temp 100.0 100.0 Pulse 53 64 59 64 Resp 22 B/P (MAP) 126/72 (90) 125/68 (87) Pulse Ox 100 100 99 99 FiO2 70 09/03/20 09/03/20 09/03/20 09/03/20 20:00 20:00 20:06 20:21 Temp 99.9 100.0 Pulse 59 59 78 64 Resp 25 B/P (MAP) 128/90 (103) 136/60 (85) Pulse Ox 99 99 99 100 O2 Delivery Mechanical Ventilator FiO2 70 09/03/20 09/03/20 09/03/20 09/03/20 20:36 20:51 21:06 21:15 Temp 99.9 99.9 99.7 99.7 Pulse 54 59 69 62 Resp B/P (MAP) 123/62 (82) 126/74 (91) 117/63 (81) Pulse Ox 100 99 98 100 09/03/20 09/03/20 09/03/20 09/03/20 21:21 21:30 21:36 21:51 Temp 99.7 99.7 99.7 99.9 Pulse 62 63 61 58 Resp 18 B/P (MAP) 123/69 (87) 126/72 (90) 128/75 (92) Pulse Ox 100 100 100 100 09/03/20 09/03/20 09/03/20 09/03/20 22:06 22:06 22:21 22:36 Temp 99.9 99.9 99.9 Pulse 57 59 56 57 Resp 15 23 B/P (MAP) 128/70 (89) 133/73 (93) 135/82 (99) Pulse Ox 100 100 100 100 FiO2 70 09/03/20 09/03/20 09/03/20 09/03/20 22:51 23:03 23:03 23:06 Temp 100.0 100.0 Pulse 57 60 62 Resp 22 13 B/P (MAP) 133/74 (93) 125/71 (89) Pulse Ox 100 100 100 O2 Delivery Mechanical Ventilator FiO2 70 09/03/20 09/03/20 09/03/20 09/04/20 23:21 23:37 23:51 00:06 Temp 100.2 100.2 100.2 100.0 Pulse 75 93 75 65 Resp 9 63 22 24 B/P (MAP) 116/63 (80) 152/119 (130) 129/69 (89) 136/70 (92) Pulse Ox 100 88 100 100 09/04/20 09/04/20 09/04/20 09/04/20 00:21 00:36 00:51 01:00 Temp 100.0 100.2 100.2 Pulse 80 61 56 55 Resp 35 24 23 22 B/P (MAP) 136/69 (91) 128/71 (90) 131/72 (91) Pulse Ox 99 98 99 100 FiO2 70 09/04/20 09/04/20 09/04/20 09/04/20 01:06 01:21 01:36 01:51 Temp 100.4 100.4 100.4 100.4 Pulse 58 56 56 58 Resp 22 B/P (MAP) 131/75 (93) 132/72 (92) 130/76 (94) 127/73 (91) Pulse Ox 100 100 100 100 09/04/20 09/04/20 09/04/20 09/04/20 02:06 02:21 02:30 02:30 Temp 100.6 100.6 Pulse 68 64 64 64 Resp 18 25 B/P (MAP) 120/68 (85) 122/67 (85) Pulse Ox 100 100 99 99 FiO2 70 09/04/20 09/04/20 09/04/20 09/04/20 02:30 02:36 02:51 03:06 Temp 100.6 100.8 100.8 Pulse 64 60 66 65 Resp 19 B/P (MAP) 123/67 (85) 122/69 (86) 120/66 (84) Pulse Ox 100 100 99 100 09/04/20 09/04/20 09/04/20 09/04/20 03:11 03:11 03:21 03:36 Temp 100.8 100.6 Pulse 65 64 63 Resp 29 B/P (MAP) 126/67 (86) 121/67 (85) Pulse Ox 100 100 99 O2 Delivery Mechanical Ventilator FiO2 70 09/04/20 09/04/20 09/04/20 09/04/20 03:51 04:06 04:21 04:36 Temp 100.4 100.4 100.4 100.4 Pulse 56 55 56 72 Resp 25 8 25 33 B/P (MAP) 128/67 (87) 126/74 (91) 123/69 (87) 113/67 (82) Pulse Ox 99 100 100 97 09/04/20 09/04/20 09/04/20 09/04/20 04:43 04:51 05:06 05:21 Temp 100.2 100.4 100.2 Pulse 60 77 82 68 Resp 25 38 39 32 B/P (MAP) 113/63 (80) 116/71 (86) 112/58 (76) Pulse Ox 100 93 93 92 FiO2 70 09/04/20 09/04/20 09/04/20 09/04/20 05:36 05:51 06:00 06:06 Temp 100.2 100.2 100.2 Pulse 59 58 57 59 Resp 23 B/P (MAP) 121/66 (84) 119/72 (88) 115/66 (82) Pulse Ox 96 97 97 98 FiO2 70 09/04/20 09/04/20 09/04/20 09/04/20 06:21 06:36 08:00 08:00 Temp 100.4 100.4 Pulse 69 74 53 Resp 25 27 22 B/P (MAP) 110/63 (79) 110/60 (77) Pulse Ox 98 98 100 O2 Delivery Mechanical Ventilator FiO2 70 09/04/20 09/04/20 09/04/20 09/04/20 08:11 08:11 08:11 08:11 Pulse 66 74 66 66 Resp 25 27 25 25 Pulse Ox 94 98 94 94 O2 Delivery Mechanical Ventilator FiO2 70 70 09/04/20 09/04/20 09/04/20 09/04/20 10:11 10:26 10:33 10:41 Temp 100.0 100.4 100.4 Pulse 75 71 78 70 Resp 24 26 B/P (MAP) 101/58 111/60 103/60 Pulse Ox 98 FiO2 80 09/04/20 09/04/20 09/04/20 09/04/20 11:01 11:31 12:00 12:00 Temp 100.3 100.3 Pulse 79 67 53 Resp 28 22 B/P (MAP) 111/60 109/59 Pulse Ox 100 O2 Delivery Mechanical Ventilator FiO2 80 09/04/20 09/04/20 09/04/20 09/04/20 13:06 13:15 13:21 13:30 Temp 100.4 100.4 100.4 100.2 Pulse 72 76 73 69 Resp 54 42 25 27 B/P (MAP) 121/70 (87) 115/64 (81) Pulse Ox 98 97 97 95 09/04/20 09/04/20 09/04/20 09/04/20 13:36 13:45 13:51 14:00 Temp 100.0 100.0 100.0 100.0 Pulse 68 75 66 71 Resp 30 36 35 48 B/P (MAP) 117/61 (79) 120/72 (88) Pulse Ox 95 95 93 95 09/04/20 09/04/20 09/04/20 09/04/20 14:06 14:09 14:09 14:09 Temp 100.0 Pulse 67 105 105 105 Resp 88 35 35 35 B/P (MAP) 124/60 (81) Pulse Ox 94 94 94 94 FiO2 80 09/04/20 09/04/20 09/04/20 09/04/20 14:15 14:21 14:30 14:36 Temp 100.0 100.0 100.0 99.9 Pulse 67 60 74 62 Resp 28 B/P (MAP) 117/68 (84) 127/70 (89) Pulse Ox 91 92 92 93 09/04/20 09/04/20 09/04/20 09/04/20 14:45 14:51 15:00 15:06 Temp 99.9 99.9 99.7 99.7 Pulse 63 60 68 64 Resp 22 96 22 22 B/P (MAP) 121/66 (84) 122/68 (86) Pulse Ox 96 98 99 100 09/04/20 09/04/20 09/04/20 09/04/20 15:15 15:21 15:36 15:45 Temp 99.7 99.7 99.5 99.5 Pulse 61 59 57 57 Resp 22 22 22 22 B/P (MAP) 122/69 (86) 118/72 (87) Pulse Ox 100 100 100 100 09/04/20 09/04/20 09/04/20 09/04/20 15:51 16:00 16:00 16:00 Temp 99.5 99.5 Pulse 56 53 58 Resp 26 22 23 B/P (MAP) 117/68 (84) Pulse Ox 100 100 100 O2 Delivery Mechanical Ventilator FiO2 80 09/04/20 09/04/20 09/04/20 09/04/20 16:06 16:15 16:21 16:30 Temp 99.3 99.3 99.3 99.5 Pulse 68 77 80 73 Resp 27 26 33 37 B/P (MAP) 136/75 (95) 131/67 (88) Pulse Ox 99 97 96 96 09/04/20 09/04/20 09/04/20 09/04/20 16:36 16:45 16:45 16:51 Temp 99.5 99.5 99.5 Pulse 73 74 80 69 Resp 38 22 B/P (MAP) 132/76 (94) 119/68 (85) Pulse Ox 95 96 95 96 FiO2 80 09/04/20 09/04/20 09/04/20 09/04/20 17:00 17:06 17:15 17:21 Temp 99.5 99.5 99.5 99.5 Pulse 65 66 61 63 Resp 22 B/P (MAP) 121/72 (88) 119/71 (87) Pulse Ox 96 97 98 98 09/04/20 09/04/20 09/04/20 09/04/20 17:30 17:36 17:45 17:51 Temp 99.5 99.3 99.3 99.3 Pulse 59 57 56 55 Resp 22 B/P (MAP) 115/68 (84) 116/71 (86) Pulse Ox 99 99 99 99 09/04/20 09/04/20 09/04/20 09/04/20 19:00 19:00 19:06 19:21 Temp 98.6 98.6 Pulse 50 50 52 Resp 22 B/P (MAP) 120/68 (85) 127/67 (87) Pulse Ox 100 98 98 O2 Delivery Mechanical Ventilator FiO2 80 09/04/20 09/04/20 09/04/20 09/04/20 19:36 19:51 20:00 20:00 Temp 98.6 98.6 Pulse 50 52 50 50 Resp 22 B/P (MAP) 120/75 (90) 115/65 (82) Pulse Ox 99 99 98 98 O2 Delivery Mechanical Ventilator FiO2 80 80 09/04/20 09/04/20 09/04/20 09/04/20 20:00 20:00 20:06 20:21 Temp 98.6 98.4 Pulse 50 50 53 51 Resp 22 B/P (MAP) 113/66 (82) 112/68 (83) Pulse Ox 98 98 98 98 09/04/20 09/04/20 09/04/20 09/04/20 20:36 20:51 21:06 21:21 Temp 98.4 98.2 98.2 98.1 Pulse 51 51 78 62 Resp 22 B/P (MAP) 110/63 (79) 109/66 (80) 112/71 (85) 105/60 (75) Pulse Ox 98 99 99 97 09/04/20 09/04/20 09/04/20 09/04/20 21:36 21:51 22:06 22:12 Temp 98.1 98.1 98.1 Pulse 68 63 61 54 Resp B/P (MAP) 119/63 (81) 117/69 (85) 121/68 (85) Pulse Ox 96 92 92 99 FiO2 80 09/04/20 09/04/20 09/04/20 09/04/20 22:21 22:36 22:51 23:00 Temp 98.1 98.1 98.2 Pulse 62 63 60 60 Resp 23 B/P (MAP) 121/69 (86) 132/73 (92) 117/66 (83) Pulse Ox 92 97 97 100 FiO2 80 09/04/20 09/04/20 09/04/20 09/04/20 23:00 23:06 23:21 23:36 Temp 98.2 98.2 98.4 Pulse 59 57 57 Resp 22 B/P (MAP) 115/68 (84) 111/68 (82) 112/63 (79) Pulse Ox 97 98 98 O2 Delivery Mechanical Ventilator 09/04/20 09/05/20 09/05/20 09/05/20 23:51 00:06 00:21 00:36 Temp 98.4 98.2 98.2 98.2 Pulse 56 56 58 58 Resp 24 B/P (MAP) 107/64 (78) 111/66 (81) 111/62 (78) 108/61 (77) Pulse Ox 97 96 95 93 09/05/20 09/05/20 09/05/20 09/05/20 00:51 01:07 01:21 01:24 Temp 98.2 98.4 Pulse 57 81 99 84 Resp 22 B/P (MAP) 108/68 (81) 106/59 (75) 105/67 (80) Pulse Ox 92 95 82 95 FiO2 80 09/05/20 09/05/20 09/05/20 09/05/20 01:36 01:51 02:06 02:21 Temp 98.6 99.0 99.1 Pulse 83 89 88 84 Resp B/P (MAP) 112/57 (75) 120/62 (81) 114/60 (78) 113/60 (77) Pulse Ox 93 92 92 91 09/05/20 09/05/20 09/05/20 09/05/20 02:36 02:51 03:00 03:00 Temp 99.3 99.5 Pulse 89 90 88 88 Resp B/P (MAP) 117/62 (80) 122/57 (78) Pulse Ox 91 90 92 92 FiO2 80 09/05/20 09/05/20 09/05/20 09/05/20 03:00 03:00 03:00 03:06 Temp 99.7 Pulse 80 88 85 Resp B/P (MAP) 130/71 (90) Pulse Ox 88 94 88 O2 Delivery Mechanical Ventilator FiO2 80 09/05/20 09/05/20 09/05/20 09/05/20 03:21 03:36 03:51 03:51 Temp 99.7 99.7 99.7 99.7 Pulse 87 108 87 87 Resp 22 B/P (MAP) 115/65 (82) 122/68 (86) 115/67 (83) 115/67 (83) Pulse Ox 91 93 93 93 09/05/20 09/05/20 09/05/20 09/05/20 04:06 04:21 04:36 04:51 Temp 99.9 100.0 100.2 98.2 Pulse 88 93 91 91 Resp B/P (MAP) 116/64 (81) 117/62 (80) 116/67 (83) 121/68 (85) Pulse Ox 94 94 93 94 09/05/20 09/05/20 09/05/20 09/05/20 05:06 05:21 05:36 05:51 Temp 100.2 100.0 100.2 100.2 Pulse 90 98 98 89 Resp 22 B/P (MAP) 120/72 (88) 124/73 (90) 127/72 (90) 125/66 (85) Pulse Ox 95 95 95 95 09/05/20 09/05/20 09/05/20 09/05/20 06:06 06:21 06:31 06:36 Temp 100.4 100.4 100.0 Pulse 91 93 97 95 Resp 22 B/P (MAP) 128/68 (88) 123/71 (88) 125/69 (87) Pulse Ox 95 95 94 94 FiO2 80 09/05/20 09/05/20 09/05/20 09/05/20 06:51 07:00 07:06 07:15 Temp 100.4 100.4 100.4 100.4 Pulse 93 93 94 93 Resp B/P (MAP) 116/70 (85) 128/69 (88) Pulse Ox 95 95 95 95 09/05/20 09/05/20 09/05/20 09/05/20 07:21 07:30 07:36 07:45 Temp 100.4 100.4 100.4 100.4 Pulse 91 92 95 95 Resp 23 B/P (MAP) 133/74 (93) 140/76 (97) Pulse Ox 95 95 95 94 09/05/20 09/05/20 09/05/20 09/05/20 07:51 08:00 08:00 08:06 Temp 100.6 100.6 100.6 Pulse 97 100 100 99 Resp 28 B/P (MAP) 135/70 (91) 128/74 (92) Pulse Ox 94 93 94 94 FiO2 80 09/05/20 09/05/20 09/05/20 09/05/20 08:15 08:21 08:30 08:36 Temp 100.8 100.8 100.8 100.8 Pulse 109 125 113 105 Resp 36 57 36 32 B/P (MAP) 161/82 (108) 136/66 (89) Pulse Ox 93 83 91 91 11/25/20 11/25/20 11/25/20 11/25/20 08:45 08:51 09:00 09:00 Temp 100.8 100.8 Pulse 107 107 96 107 Resp 34 37 24 37 B/P (MAP) 126/72 (90) Pulse Ox 91 91 94 94 O2 Delivery Mechanical Ventilator FiO2 80 09/05/20 09/05/20 09/05/20 09/05/20 09:00 09:00 09:19 09:45 Pulse 96 96 Resp 24 24 Pulse Ox 94 94 O2 Delivery Mechanical Ventilator FiO2 80 90 09/05/20 09/05/20 09/05/20 09/05/20 10:36 10:45 10:51 11:00 Temp 100.9 100.9 100.9 100.9 Pulse 104 105 104 105 Resp 25 29 31 30 B/P (MAP) 146/74 (98) 141/75 (97) Pulse Ox 92 93 93 94 09/05/20 09/05/20 09/05/20 09/05/20 11:06 11:15 11:21 11:30 Temp 100.9 100.9 100.9 101.1 Pulse 104 107 106 119 Resp 29 30 32 33 B/P (MAP) 139/76 (97) 143/73 (96) Pulse Ox 94 93 93 93 09/05/20 09/05/20 09/05/20 09/05/20 11:36 11:45 11:51 12:00 Temp 101.1 101.1 101.1 Pulse 127 118 116 Resp 38 34 25 B/P (MAP) 129/77 (94) 135/72 (93) Pulse Ox 93 92 93 O2 Delivery Mechanical Ventilator 09/05/20 09/05/20 09/05/20 09/05/20 12:00 12:06 12:14 12:15 Temp 101.1 Pulse 110 107 105 Resp 34 37 24 B/P (MAP) 156/97 (116) Pulse Ox 94 83 94 92 FiO2 90 09/05/20 09/05/20 09/05/20 09/05/20 12:21 12:30 12:30 12:36 Pulse 103 109 99 101 Resp 64 39 32 27 B/P (MAP) 134/78 (96) 131/73 (92) Pulse Ox 84 92 93 FiO2 90 09/05/20 09/05/20 09/05/20 09/05/20 12:45 12:51 13:00 13:06 Pulse 114 103 100 98 Resp 22 B/P (MAP) 133/75 (94) 131/73 (92) Pulse Ox 94 94 96 97 09/05/20 09/05/20 09/05/20 09/05/20 13:21 13:36 13:51 13:52 Pulse 93 95 95 107 Resp 22 B/P (MAP) 131/78 (95) 134/79 (97) 123/73 (90) Pulse Ox 97 97 98 97 FiO2 90 09/05/20 09/05/20 09/05/20 09/05/20 14:06 14:22 14:36 14:51 Temp 64.0 Pulse 88 76 75 Resp B/P (MAP) 120/78 (92) 108/70 (83) 113/65 (81) 113/70 (84) Pulse Ox 97 85 93 94 09/05/20 09/05/20 09/05/20 09/05/20 15:00 15:06 15:06 15:15 Temp 99.7 99.7 99.7 99.5 Pulse 73 78 78 61 Resp 43 43 23 B/P (MAP) 113/74 (87) 113/74 (87) Pulse Ox 94 89 89 96 09/05/20 09/05/20 09/05/20 09/05/20 15:21 15:21 15:30 15:34 Temp 99.5 99.5 99.3 Pulse 59 59 60 67 Resp 23 B/P (MAP) 114/65 (81) 114/65 (81) Pulse Ox 97 97 98 94 09/05/20 09/05/20 09/05/20 09/05/20 15:35 15:36 15:36 15:45 Temp 99.3 99.3 Pulse 67 67 59 59 Resp 22 B/P (MAP) 114/70 (85) Pulse Ox 94 94 98 98 FiO2 90 09/05/20 09/05/20 09/05/20 09/05/20 15:51 16:00 16:00 16:06 Temp 99.3 99.3 99.3 Pulse 59 60 62 Resp 22 B/P (MAP) 115/70 (85) 120/75 (90) Pulse Ox 99 99 99 O2 Delivery Mechanical Ventilator 09/05/20 09/05/20 09/05/20 09/05/20 16:17 18:09 19:00 19:06 Temp 99.7 99.7 Pulse 99 67 64 65 Resp 32 22 B/P (MAP) 122/71 (88) Pulse Ox 92 89 93 93 FiO2 90 90 09/05/20 09/05/20 09/05/20 09/05/20 19:15 19:21 19:30 19:36 Temp 99.7 99.7 99.7 99.7 Pulse 66 66 65 64 Resp B/P (MAP) 119/71 (87) 120/63 (82) Pulse Ox 92 91 91 89 09/05/20 09/05/20 09/05/20 09/05/20 19:45 19:51 20:00 20:00 Temp 99.5 99.5 99.5 Pulse 63 62 60 Resp B/P (MAP) 119/74 (89) Pulse Ox 87 88 88 O2 Delivery Mechanical Ventilator 09/05/20 09/05/20 09/05/20 09/05/20 20:00 20:06 20:15 20:21 Temp 99.5 99.5 99.5 Pulse 59 57 57 59 Resp B/P (MAP) 124/70 (88) 119/67 (84) Pulse Ox 91 89 89 90 FiO2 90 09/05/20 09/05/20 09/05/20 09/05/20 20:21 20:36 20:51 21:00 Temp 99.5 99.5 99.5 Pulse 59 59 61 63 Resp B/P (MAP) 119/67 (84) 118/69 (85) 115/71 (86) Pulse Ox 90 92 92 92 FiO2 90 09/05/20 09/05/20 09/05/20 09/05/20 21:00 21:00 21:00 21:06 Temp 99.5 Pulse 63 63 66 61 Resp B/P (MAP) 117/70 (86) Pulse Ox 92 92 90 92 O2 Delivery Mechanical Ventilator FiO2 90 09/05/20 09/05/20 09/05/20 09/05/20 21:21 21:36 21:51 22:06 Temp 99.5 99.5 99.3 99.3 Pulse 59 69 66 70 Resp 22 B/P (MAP) 115/64 (81) 108/58 (75) 112/59 (76) 107/60 (76) Pulse Ox 92 90 91 89 09/05/20 09/05/20 09/05/20 09/05/20 22:21 22:36 22:51 23:06 Temp 99.3 99.1 99.1 99.1 Pulse 67 69 66 66 Resp B/P (MAP) 109/57 (74) 113/67 (82) 109/62 (78) 105/60 (75) Pulse Ox 88 86 91 91 09/05/20 09/05/20 09/05/20 09/06/20 23:21 23:36 23:51 00:00 Temp 99.1 99.1 99.1 Pulse 63 60 60 59 Resp B/P (MAP) 105/63 (77) 107/64 (78) 110/63 (79) Pulse Ox 92 92 92 91 FiO2 90 09/06/20 09/06/20 09/06/20 09/06/20 00:00 00:06 00:21 00:21 Temp 99.1 99.1 99.1 Pulse 58 59 59 Resp B/P (MAP) 113/70 (84) 114/69 (84) 114/69 (84) Pulse Ox 92 90 90 O2 Delivery Mechanical Ventilator 09/06/20 09/06/20 09/06/20 09/06/20 00:36 00:51 01:06 01:20 Temp 99.1 99.1 99.1 Pulse 60 58 59 58 Resp B/P (MAP) 115/67 (83) 114/64 (81) 111/65 (80) Pulse Ox 89 90 91 91 FiO2 90 09/06/20 09/06/20 09/06/20 09/06/20 01:21 01:36 01:51 02:06 Temp 99.3 99.3 99.3 99.3 Pulse 62 59 59 59 Resp 22 B/P (MAP) 107/61 (76) 108/57 (74) 108/65 (79) 105/61 (76) Pulse Ox 90 91 91 91 09/06/20 09/06/20 09/06/20 09/06/20 02:21 02:36 02:51 03:00 Temp 99.3 99.3 99.3 Pulse 60 59 59 56 Resp 22 22 10 22 B/P (MAP) 109/59 (76) Pulse Ox 90 89 89 90 09/06/20 09/06/20 09/06/20 09/06/20 03:00 03:06 04:00 04:00 Temp 99.3 Pulse 57 68 60 Resp 22 23 22 Pulse Ox 90 78 90 O2 Delivery Mechanical Ventilator FiO2 90 09/06/20 04:48 Pulse 56 Resp 22 Pulse Ox 90 FiO2 90 Intake and Output 09/06/20 06:00 Intake Total 870 ml Output Total 2300 ml Balance -1430 ml VTE VTE Risk Score VTE Risk: Score 0-1 = Low Risk (Aggressive mobilization; early ambulation; no VTE prophylaxis required) Score 2: Moderate Risk (Intermittent/Pneumatic Compression Device OR Lovenox/Heparin/Coumadin) Score 3-4: High Risk (Intermittent/Pneumatic Compression Device AND Lovenox/Heparin/Coumadin) Score > or =5: Highest Risk (Intermittent/Pneumatic Compression Device AND Lovenox/Heparin/Coumadin) Assessment/Plan Assessment/Plan Assessment/Plan 54yo m intubated with acute resp failure secondary to severe ARDS w/ Covid 1. cont vent support. PEEP increased 2. cont paralytic. sedation 3. will need to prone as no further options with refractory hypoxemia 4. start proning protocol 16:8 5. cont steroids, ABx 6. DVT/GI prophylaxis addressed CC time > 60 min assessing pt via HIPAA compliant technology Patient History: Unknown 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 ARJUN MCFADDEN MD Sep 06, 2020 08:25
--- NOTE | 2020-09-06 08:30 | NUR ---
Patient o2 saturation in the low 80's to ericka 70's, Dr. Johnston in the room, telemed Dr. Pretty called, his recommendation is to prone the patient, will prone patient when we have enough people.
[2020-09-06] MEDS: DEXAMETHASONE 10 MG/ML VIAL IV SCH (09:00)
[2020-09-06] MEDS: LOVENOX SQ SCH ×2 (09:00→21:00)
[2020-09-06] MEDS: ASPIRIN PO SCH (09:00)
[2020-09-06] MEDS: PEPCID IV SCH ×2 (09:00→21:00)
[2020-09-06] MEDS: VITAMIN C PO SCH ×2 (09:00→21:00)
[2020-09-06] MEDS: ZINC SULFATE PO SCH (09:00)
--- NOTE | 2020-09-06 09:01 | DIREP ---
PROCEDURE:CHEST 1 VIEW COMPARISON:[facility], CT, CT CHEST W/O, 09/01/2020, 03:57 PM. [facility], CR, XRAY CHEST SINGLE VW, 09/04/2020, 07:26 AM. [facility], CR, XRAY CHEST SINGLE VW, 09/01/2020, 11:48 AM. INDICATIONS:COVID FINDINGS: LUNGS/PLEURA:Endotracheal tube appears slightly high riding terminating approximately the 7 cm from the chuy, though this may be exaggerated by patient positioning. Slightly more confluent opacities in the right lung base. No significant change in the consolidative opacities in the left lung base. Scattered patchy ground-glass infiltrates are otherwise not significantly changed. No large pleural effusion. CARDIAC:Normal cardiac silhouette and normal pulmonary vascularity. MEDIASTINUM:No visible mass or adenopathy. Pneumomediastinum is less conspicuous. BONES:Thoracic spondylosis. OTHER:NGT with side hole projecting over the gastric bubble. Decreasing subcutaneous emphysema. CONCLUSION: 1. Slightly more confluent ground-glass infiltrates in the right lung base. Otherwise no significant cardiopulmonary change. 2. Endotracheal tube appears slightly high riding. Dictated by: Enrique Candelario MD. on 09/06/2020 at 08:55 AM
--- NOTE | 2020-09-06 09:30 | NUR ---
Patient proned with the assistance of RT and another nurse, patient saturation started to drop into the 70's we were unable to get any other assistance as all other personnel were busy, patient tolerated well, will continue to monitor.
--- NOTE | 2020-09-06 10:00 | NUR ---
Patient o2 saturation is now 91, will continue to monitor.
[2020-09-06 10:10] LABS: ABG PCO2 46.2 mmHg (35.0-45.0); ABG PH 7.404 (7.350-7.450); BE(B) 2.8 mmol/L (-2.0-2.0); HCO3act 28.2 mmol/L (22.0-26.0); pO2 42.9 mmHg (80.0-100.0)
[2020-09-06] MEDS: VANCOMYCIN HCL 1.5 GM in NS 250ML 300 ML IV SCH ×2 (11:00→23:00)
--- NOTE | 2020-09-06 13:47 | NUR ---
Updated patient Amanda that patient had a decrease in o2 saturation this am, that we proned him and his oxygenation is better now, she wanted to facetime today, I told her that I would rather not as I do not want to stimulate him too much today, she expressed understanding and I told her that we could re-evaluate facetiming tomorrow.
[2020-09-06] MEDS: NS IV SCH (17:52)
[2020-09-06] MEDS: PRECEDEX IV SCH (17:52)
--- NOTE | 2020-09-06 20:16 | PRM.PN ---
Progress Note Subjective Date: Sep 06, 2020 Physician Notes: Subjective: He was stable last 24 hrs, no events over night. still sedated. ROS: unobtainable. Objective Review IO, Exams,& Results Objective: Vital Signs Date Time Temp Pulse Resp B/P (MAP) Pulse Ox O2 Delivery O2 Flow Rate FiO2 09/06/20 16:00 60 22 90 100 09/06/20 15:44 Mechanical Ventilator 09/06/20 14:00 100.6 125/66 (85) 08/31/20 04:56 15.00 Intake and Output0 09/06/20 07:00 Intake Total 870 ml Output Total 2100 ml Balance -1230 ml Tube Feeding 480 ml Other 390 ml Output Urine Total 2100 ml Ventilator Mode:AC Vent rate:22 Tv:450 PIP/Pplat:21 PEEP:12 PS: FiO2:90% Laboratory Tests Test 09/05/20 04:11 09/05/20 08:20 09/05/20 11:33 09/05/20 17:36 White Blood Count 19.1 10^3/uL Red Blood Count 4.79 10^6/uL Hemoglobin 15.2 g/dL Hematocrit 44.5 % Mean Corpuscular Volume 92.9 fL Mean Corpuscular Hemoglobin 31.7 pg Mean Corpuscular Hemoglobin Concent 34.2 g/dL Red Cell Distribution Width 12.6 % Platelet Count 180 10^3/uL Mean Platelet Volume 9.7 fL Neutrophils (%) (Auto) 92.7 % Lymphocytes (%) (Auto) 3.5 % Monocytes (%) (Auto) 2.8 % Neutrophils # (Auto) 17.7 10^3/uL Lymphocytes # (Auto) 0.66 10^3/uL1 Monocytes # (Auto) 0.5 10^3/uL Absolute Immature Granulocyte (auto 0.18 10^3 u/L Absolute Eosinophils (auto) 0.0 10^3/uL Immature Granulocytes % 0.90 % Eosinophils % 0.0 % Basophils % 0.1 % Basophils # 0.0 10^3/uL Sodium Level 139 mmol/L Potassium Level 3.9 mmol/L Chloride Level 103.0 mmol/L Carbon Dioxide Level 29.9 mmol/L Anion Gap 10.0 Blood Urea Nitrogen 17 mg/dL Creatinine 0.59 mg/dL Estimated GFR () 172.6 Est GFR (CKD-EPI)(Non-Afr [place]) 142.6 BUN/Creatinine Ratio 28.0 Glucose Level 155 mg/dL Calcium Level 7.7 mg/dL Phosphorus Level 3.2 mg/dL Magnesium Level 2.2 mg/dL Total Bilirubin 0.6 mg/dL Aspartate Amino Transf (AST/SGOT) 27 U/L Alanine Aminotransferase (ALT/SGPT) 38 U/L Alkaline Phosphatase 71 U/L Total Protein 5.6 g/dL Albumin 1.9 g/dL Globulin 3.7 Albumin/Globulin Ratio 0.513 Blood Gas Sample Site RR Blood Gas pH 7.390 Blood Gas PCO2 50.4 mmHg Blood Gas PO2 59.2 mmHg Blood Gas HCO3 29.8 mmol/L Blood Gas Base Excess 3.6 mmol/L Vince Test POSITIVE Arterial Blood Oxygen Saturation 89.3 % Deoxyhemoglobin 10.5 % Carboxyhemoglobin 1.1 % Methemoglobin 0.4 % Total Hemoglobin 16.8 % Total Oxygen Concentration 20.7 % Oxygen Delivery Method (LAB) VENT Blood Gas Vent Mode AC Blood Gas Vent Rate 22 FiO2 90 % Blood Gas Tidal Volume 450 ML Blood Gas PEEP 16 CMH2O Total Carbon Dioxide 31.4 mmol/L Bedside Glucose 132 161 Test 09/06/20 04:10 09/06/20 07:55 White Blood Count 13.9 10^3/uL Red Blood Count 4.61 10^6/uL Hemoglobin 14.7 g/dL Hematocrit 42.9 % Mean Corpuscular Volume 93.1 fL Mean Corpuscular Hemoglobin 31.9 pg Mean Corpuscular Hemoglobin Concent 34.3 g/dL Red Cell Distribution Width 12.4 % Platelet Count 159 10^3/uL Mean Platelet Volume 9.8 fL Neutrophils (%) (Auto) 89.3 % Lymphocytes (%) (Auto) 6.1 % Monocytes (%) (Auto) 2.7 % Neutrophils # (Auto) 12.4 10^3/uL Lymphocytes # (Auto) 0.84 10^3/uL1 Monocytes # (Auto) 0.4 10^3/uL Absolute Immature Granulocyte (auto 0.20 10^3 u/L Absolute Eosinophils (auto) 0.1 10^3/uL Immature Granulocytes % 1.40 % Eosinophils % 0.4 % Basophils % 0.1 % Basophils # 0.0 10^3/uL D-Dimer 3.65 mg/L Sodium Level 140 mmol/L Potassium Level 4.3 mmol/L Chloride Level 106.0 mmol/L Carbon Dioxide Level 30.5 mmol/L Anion Gap 7.8 Blood Urea Nitrogen 17 mg/dL Creatinine 0.62 mg/dL Estimated GFR () 163.0 Est GFR (CKD-EPI)(Non-Afr [place]) 134.7 BUN/Creatinine Ratio 27.0 Glucose Level 128 mg/dL Calcium Level 7.9 mg/dL Phosphorus Level 2.8 mg/dL Magnesium Level 2.2 mg/dL Ferritin 1712 ng/mL Total Bilirubin 0.4 mg/dL Aspartate Amino Transf (AST/SGOT) 25 U/L Alanine Aminotransferase (ALT/SGPT) 37 U/L Alkaline Phosphatase 65 U/L Lactate Dehydrogenase 407 U/L Total Creatine Kinase 40 U/L C-Reactive Protein 11.49 mg/dL Total Protein 5.4 g/dL Albumin 1.7 g/dL Globulin 3.7 Albumin/Globulin Ratio 0.459 Procalcitonin 0.05 ng/mL Blood Gas Sample Site CISCO Blood Gas pH 7.404 Blood Gas PCO2 46.2 mmHg Blood Gas PO2 42.9 mmHg Blood Gas HCO3 28.2 mmol/L Blood Gas Base Excess 2.8 mmol/L Vince Test N/A Arterial Blood Oxygen Saturation 78.0 % Deoxyhemoglobin 21.7 % Carboxyhemoglobin 0.9 % Methemoglobin 0.4 % Total Hemoglobin 16.1 % Total Oxygen Concentration 17.4 % Blood Gas Temperature 37.0 Oxygen Delivery Method (LAB) VENT Blood Gas Vent Mode AC Blood Gas Vent Rate 20 FiO2 100 % Blood Gas Tidal Volume 500 ML Blood Gas PEEP 12 CMH2O Total Carbon Dioxide 29.7 mmol/L Current Medications Medications (Trade) Dose Ordered Sig/Estuardo PRN Reason Start Time Stop Time Status Last Admin Cefepime HCl 2 gm/ Sodium Chloride 100 ml @ 100 mls/hr Q8H 09/05/20 09:30 10/05/20 09:29 09/06/20 17:30 Dexmedetomidine HCl 800 mcg/ Sodium Chloride 200 ml @ 0 mls/hr IV 09/04/20 20:00 10/04/20 19:59 09/06/20 17:52 Enoxaparin Sodium (Lovenox) 40 mg BID 09/04/20 21:00 10/04/20 20:59 09/06/20 09:00 Vancomycin HCl 1.5 gm/Sodium Chloride 300 ml @ 175 mls/hr Q12H 09/05/20 11:00 10/05/20 10:59 09/06/20 11:00 Vecuronium Kenvil (Norcuron) 15 mg Q1HR PRN vent dsynchrony or hypoxia 09/04/20 11:30 10/04/20 11:29 09/06/20 18:02 Physical exam: General: not in distress. Neuro: sedated. Heart: Normal S1, Normal S2, No murmurs, Other (slightly tachycardic this AM) Abdomen: Normal bowel sounds, Soft Lungs: Other (breath sounds equal and symmetric. Lungs are mostly clear, but there are increasing scattered rales. ) Skin: No rashes, No breakdown, No significant lesion, Other (There is signicant subq emphysema overlying his chest and neck. ) Assessment & Plan: Assessment Hospital course: Pt is a 54 y/o M with PMHx of HTN, HLD, obesity, and anxiety. He was admitted the morning of 08/31 as a transfer from OSH for acute hypoxemic respiratory failure and COVID-19. He was started on full spectrum treatment for COVID-19 with IV Decadron, Azithromycin, Remdesivir, CCP, Zinc, and Vitamin C. On arrival to this facility, he was in mild to moderate respiratory distress and required continuous CPAP to maintain Oxygenation. He remained relatively stable throughout 08/31, but started becoming more fatigued the evening of 08/31, and was moved to the ICU for closer monitoring. In the ICU, he was continued on CPAP in an effort to avoid intubation. However, he continued to have difficulty with NIPPV and was frequently dyssynchronous, causing further desaturations. He was also noted to have Sub q emphysema in his chest and neck, which was concerning for barotrauma due to continued dyssynchrony. The morning of 09/01, he was noted to be in worsened respiratory distress and there was concern for impending respiratory collapse due to fatigue. The patient and I discussed intubation and he agreed to be electively intubated before he decompensated completely. The on- call [employer] was called and the patient was subsequently intubated without complication. He was started on Propofol and fentanyl drips and paralyzed with IV vecuronium pushes. He has tolerated mechanical ventilation rather well and his O2 sats and PaO2 have improved markedly. Prior to intubation his ABG showed normal pH and a PaO2 in the 50's. His PaO2 improved to 70's within the hour, and was 150's on his most recent ABG the evening of 09/01. Of note, I did discuss the possibility of prolonged intubation, need for tracheostomy, and whether this is something that he would want done. He agreed that tracheostomy and long-term vent weaning is something that he would be ok with if it came down to it. Since intubation, he has improved markedly. He was continued on treatment for COVID with Remdesivir, steroids, and azithromycin and has completed his courses of each of these. His inflammtory markers have been downtrending with the exception of D-dimer which is uptrending slowly. His WBC was previously trending down, but increased sharply from 15 to 19 today. He has also been fevering so his Abx were broadened out to Vanc/Cefepime this AM and repeat Blood and sputum cultures were obtained. 09/06/2020: he remained stable. still have low grade fever. blood cultures are negative. Assessments: Neuro:sedated. CV:HD stable. Hx HTN but off lisinopril due to soft BP. Pulmo: Acute respiratory failure on mechanical ventilation: managed by ICU telemedicine. current settin/22/12/90%.Keep Pplat < 30 to limit risk of pneumothorax and barotrauma. COVID-19 pneumonia: possibly superimposed with HAP, still running fever. Procalcitonin is normal. covid markers still high. - Pt has completed his course of Remdesivir. - s/p 1u CCP - c/w Vanc/Cefepime for empiric broad spectrum coverage (day 2) - continue Propofol/Fentanyl for sedation/analgesia; precedex is available for backup sedation if needed - continue IV Vecuronium 15mg q1h + IV Vec 2mg q30min PRN - trend COVID markers q48h - CXR q48h and PRN Pneumomediastinum without pneumothorax: stable. GI:TF 40cc/hr. : no issues endo: Bg normal. he is off steroids. heme:WBC trended down. FEN:corrected calcium is normal. Sedation: propofol/precedex Analgesia: Fent VTE ppx: Lovenox GI ppx: Pepcid Diet: TF per dietary recs CODE: minute clerk for basic traffic Spent: > 40 minutes between evaluation, coordination of care, and documentation ARMANDO OLIVARES MD Sep 06, 2020 20:16
[2020-09-07] VITALS (51 sets, daily range): BP systolic 92–139; BP diastolic 40–73
[2020-09-07] MEDS: MAXIPIME 2 GM in NS 100ML 100 ML IV SCH ×2 (01:30→09:27)
[2020-09-07 05:20] LABS: BASOPHIL % 0.1 % (0.0-0.2); LYMPHOCYTES # 0.51 10^3/uL1 (1.0-4.8); MEAN CORP HGB 31.6 pg (26-34); MONOCYTES # 0.4 10^3/uL (0.3-0.8); MONOCYTES % 2.3 % (5.0-12.0); NEUTROPHIL # 15.7 10^3/uL (1.8-7.7); NEUTROPHILS % 92.8 % (41.0-85.0); PLATELET COUNT 188 10^3/uL (150-400); RED CELL DISTRIBUTION WIDTH 12.3 % (11.5-14.5)
[2020-09-07 05:48] LABS: CALCIUM 8.2 mg/dL (8.4-10.5); CARBON DIOXIDE 29.4 mmol/L (20.0-32)
[2020-09-07] MEDS: ASPIRIN PO SCH (08:05)
[2020-09-07] MEDS: ZINC SULFATE PO SCH (08:06)
[2020-09-07] MEDS: PEPCID IV SCH ×2 (08:06→20:30)
[2020-09-07] MEDS: VITAMIN C PO SCH ×2 (08:06→20:30)
[2020-09-07] MEDS: DEXAMETHASONE 10 MG/ML VIAL IV SCH (08:06)
[2020-09-07] MEDS: LOVENOX SQ SCH ×2 (08:07→20:30)
[2020-09-07 08:13] LABS: ABG PCO2 43.7 mmHg (35.0-45.0); ABG PH 7.413 (7.350-7.450); BE(B) 2.2 mmol/L (-2.0-2.0); HCO3act 27.3 mmol/L (22.0-26.0); pO2 58.7 mmHg (80.0-100.0)
[2020-09-07] MEDS: NORCURON IV PRN ×2 (08:38→17:21)
[2020-09-07] MEDS: DIPRIVAN IV PRN ×3 (08:55→16:25)
[2020-09-07] MEDS: DUO 0.5-3(2.5) MG/3 ML IH SCH ×2 (09:40→15:34)
[2020-09-07] MEDS: VANCOMYCIN HCL 1.5 GM in NS 250ML 300 ML IV SCH ×2 (10:46→20:00)
--- NOTE | 2020-09-07 11:11 | TELE.CONS ---
Consultation Reason for Consult: Reason for Consultation: COVID ARF Review of Systems ENT: Other Other Unable to obtain due to intubated, sedated state Allergies: Coded Allergies: Sulfa (Sulfonamide Antibiotics) (Verified Allergy, Mild, 08/31/20) Scheduled Atorvastatin 10MG (Lipitor 10MG), 1 TAB PO HS, (Reported) Bisoprolol Fumarate/Hctz (Bisoprolol-Hctz 5-6.25 Mg Tab), 1 TAB PO DAILY, (Reported) Temazepam (Restoril), 1 CAP PO HS, (Reported) VITALS REVIEW VITALS Vital Sign - Last 24 Hours 08/31/20 08/31/20 08/31/20 08/31/20 00:59 00:59 00:59 01:31 Temp 99.3 99.1 99.1 99.1 Pulse 96 96 96 89 Resp 22 22 22 22 B/P (MAP) 154/64 (94) 133/78 (96) Pulse Ox 85 85 85 O2 Delivery Non-Rebreather Non-Rebreather O2 Flow Rate 15.00 15.00 08/31/20 08/31/20 08/31/20 08/31/20 02:09 03:00 03:05 03:25 Temp 99.2 99.2 99.6 Pulse 85 86 102 Resp 23 22 22 B/P (MAP) 130/82 (98) 135/75 (95) 159/87 (111) Pulse Ox 90 91 90 O2 Delivery Non-Rebreather Bi-pap Non-Rebreather Non-Rebreather O2 Flow Rate 15.00 100.00 15.00 15.00 08/31/20 08/31/20 08/31/20 08/31/20 04:27 04:48 04:56 06:14 Temp 99.3 Pulse 92 114 85 Resp 30 42 22 B/P (MAP) 136/82 (100) Pulse Ox 86 88 90 O2 Delivery Comfort Ryne S/T Non-Rebreather S/T O2 Flow Rate 60.00 15.00 FiO2 100 100 100 08/31/20 08/31/20 08/31/20 08/31/20 08:08 08:30 08:54 08:54 Pulse 111 114 Resp 39 44 B/P (MAP) 141/91 Pulse Ox 91 91 O2 Delivery Bi-pap 08/31/20 08/31/20 08/31/2008/31/20 08:57 08:57 09:03 11:27 Temp 100.0 Pulse 119 110 103 104 Resp 44 45 60 36 B/P (MAP) 141/91 (108) Pulse Ox 90 87 89 94 O2 Delivery CPAP CPAP FiO2 100 100 08/31/20 08/31/20 08/31/20 08/31/20 11:49 14:30 15:23 15:45 Temp 98.5 Pulse 111 92 91 Resp 58 49 49 B/P (MAP) 119/85 (96) Pulse Ox 89 90 90 O2 Delivery CPAP FiO2 100 08/31/20 08/31/20 08/31/20 08/31/20 15:52 16:00 16:00 16:30 Temp 97.3 98.0 Pulse 93 85 92 Resp 44 55 40 B/P (MAP) 145/95 (112) 128/78 (95) Pulse Ox 89 91 91 O2 Delivery Bi-pap 08/31/20 08/31/20 08/31/20 08/31/20 16:34 16:45 16:49 17:00 Pulse 86 86 98 89 Resp 62 34 42 B/P (MAP) 127/82 (97) Pulse Ox 90 89 88 93 08/31/20 08/31/20 08/31/20 08/31/20 17:01 17:02 17:02 17:04 Pulse 93 99 101 87 Resp 39 39 38 37 B/P (MAP) 128/78 (95) Pulse Ox 92 91 91 90 O2 Delivery CPAP FiO2 100 08/31/20 08/31/20 08/31/20 08/31/20 17:15 17:19 17:30 17:34 Pulse 83 89 91 88 Resp 78 34 32 B/P (MAP) 136/109 (118) 134/78 (96) Pulse Ox 90 87 89 88 08/31/20 08/31/20 08/31/20 08/31/20 17:45 17:49 18:00 18:02 Pulse 89 87 89 92 Resp 69 54 47 B/P (MAP) 134/91 (105) Pulse Ox 86 89 88 89 O2 Delivery CPAP FiO2 100 08/31/20 08/31/20 08/31/20 08/31/20 18:04 18:15 18:19 19:34 Pulse 84 86 77 82 Resp 43 26 39 49 B/P (MAP) 138/68 (91) 125/58 (80) 117/74 (88) Pulse Ox 88 91 90 93 08/31/20 08/31/20 08/31/20 08/31/20 19:45 19:49 20:00 20:00 Pulse 74 69 97 Resp 41 42 57 B/P (MAP) 118/69 (85) Pulse Ox 94 92 86 O2 Delivery C-Pap 08/31/20 08/31/20 08/31/20 08/31/20 20:04 20:15 20:19 20:30 Pulse 87 71 81 81 Resp 37 28 41 B/P (MAP) 121/77 (92) 124/69 (87) Pulse Ox 88 93 91 91 08/31/20 08/31/20 08/31/20 08/31/20 20:34 20:45 20:49 20:50 Temp 97.0 Pulse 78 76 84 Resp 43 48 B/P (MAP) 124/69 (87) 115/79 (91) Pulse Ox 90 93 91 08/31/20 08/31/20 08/31/20 08/31/20 21:00 21:04 21:15 21:19 Pulse 82 88 86 86 Resp 47 57 26 40 B/P (MAP) 126/84 (98) 138/72 (94) Pulse Ox 91 87 89 87 08/31/20 08/31/20 08/31/20 08/31/20 21:30 21:34 21:45 21:45 Pulse 99 92 88 98 Resp 42 33 83 B/P (MAP) 142/85 (104) Pulse Ox 88 89 91 89 O2 Delivery CPAP FiO2 100 08/31/20 08/31/20 08/31/20 09/01/20 22:44 22:46 22:46 00:00 Temp 98.4 Pulse 88 88 88 Resp 33 33 33 Pulse Ox 90 90 91 09/01/20 09/01/20 09/01/20 09/01/20 00:00 00:30 04:00 04:00 Temp 98.1 Pulse 83 Resp 41 Pulse Ox 92 O2 Delivery C-Pap CPAP C-Pap FiO2 100 09/01/20 09/01/20 09/01/20 09/01/20 04:00 04:09 04:15 04:23 Pulse 73 94 86 76 Resp 43 36 27 50 B/P (MAP) 133/71 (91) 104/49 (67) Pulse Ox 92 83 89 91 09/01/20 09/01/20 09/01/20 09/01/20 04:30 04:39 04:45 04:54 Pulse 82 96 94 Resp 42 48 B/P (MAP) 131/87 (102) 105/43 (63) Pulse Ox 91 82 86 85 09/01/20 09/01/20 09/01/20 09/01/20 05:00 05:00 05:08 05:15 Pulse 84 103 110 99 Resp 40 47 73 46 B/P (MAP) 120/75 (90) Pulse Ox 93 85 83 90 O2 Delivery CPAP FiO2 100 09/01/20 09/01/20 09/01/20 09/01/20 05:23 05:30 05:38 05:45 Pulse 102 88 94 88 Resp 28 33 47 B/P (MAP) 110/66 (81) 118/71 (87) Pulse Ox 79 82 88 91 09/01/20 09/01/20 09/01/20 09/01/20 05:53 07:15 09:36 09:36 Pulse 98 111 107 Resp 45 45 B/P (MAP) 116/76 (89) Pulse Ox 87 91 90 O2 Delivery C-Pap 09/01/20 09/01/20 09/01/20 09/01/20 09:37 10:47 11:00 11:48 Pulse 111 76 76 Resp 51 22 22 Pulse Ox 91 91 91 O2 Delivery CPAP Mechanical Ventilator FiO2 100 100 100 09/01/20 09/01/20 09/01/20 09/01/20 14:50 14:50 14:50 14:54 Pulse 74 74 76 74 Resp 22 22 22 22 Pulse Ox 94 94 91 94 FiO2 100 09/01/20 09/01/20 09/01/20 09/01/20 15:00 15:48 15:58 16:00 Pulse 102 73 75 Resp 25 24 B/P (MAP) 107/69 (82) Pulse Ox 91 95 95 O2 Delivery Mechanical Ventilator 09/01/20 09/01/20 09/01/20 09/01/20 16:01 16:04 16:07 16:10 Pulse 77 75 78 73 Resp 23 23 24 22 B/P (MAP) 104/66 (79) 102/63 (76) 104/58 (73) 102/62 (75) Pulse Ox 95 95 95 95 09/01/20 09/01/20 09/01/20 09/01/20 16:13 16:15 16:16 16:19 Pulse 72 77 77 77 Resp 21 23 23 22 B/P (MAP) 101/62 (75) 107/61 (76) 100/61 (74) Pulse Ox 95 95 95 96 09/01/20 09/01/20 09/01/20 09/01/20 16:22 16:25 16:28 16:30 Pulse 78 76 77 78 Resp 23 24 23 23 B/P (MAP) 100/60 (73) 105/61 (76) 101/65 (77) Pulse Ox 95 95 95 95 09/01/20 09/01/20 09/01/20 09/01/20 16:31 16:34 16:37 16:56 Pulse 77 77 79 73 Resp 24 24 23 22 B/P (MAP) 102/61 (75) 101/64 (76) 98/62 (74) Pulse Ox 95 96 95 93 FiO2 100 09/01/20 09/01/20 09/01/20 09/01/20 19:13 19:15 19:16 19:19 Pulse 67 79 81 73 Resp 22 24 25 B/P (MAP) 106/72 (83) 112/67 (82) 105/60 (75) Pulse Ox 96 85 91 92 09/01/20 09/01/20 09/01/20 09/01/20 19:22 19:25 19:28 19:30 Pulse 74 71 73 73 Resp 24 23 23 24 B/P (MAP) 105/60 (75) 106/61 (76) 106/62 (77) Pulse Ox 91 91 91 92 09/01/20 09/01/20 09/01/20 09/01/20 19:31 19:34 19:37 19:40 Pulse 72 72 72 71 Resp 23 23 23 23 B/P (MAP) 106/62 (77) 107/64 (78) 102/60 (74) 105/61 (76) Pulse Ox 92 92 92 92 09/01/20 09/01/20 09/01/20 09/01/20 19:43 19:45 19:46 19:49 Pulse 72 71 71 72 Resp 22 23 24 24 B/P (MAP) 108/59 (75) 107/61 (76) 106/61 (76) Pulse Ox 92 92 92 92 09/01/20 09/01/20 09/01/20 09/01/20 19:52 19:55 19:58 20:00 Pulse 72 72 73 72 Resp 23 23 23 26 B/P (MAP) 104/64 (77) 104/63 (77) 100/62 (75) Pulse Ox 92 92 91 92 FiO2 100 09/01/20 09/01/20 09/01/20 09/01/20 20:00 20:13 20:15 20:16 Pulse 72 73 73 Resp 23 23 23 B/P (MAP) 105/61 (76) 106/63 (77) Pulse Ox 90 90 90 O2 Delivery Mechanical Ventilator 09/01/20 09/01/20 09/01/20 09/01/20 20:19 20:22 20:25 20:28 Pulse 73 72 73 72 Resp 22 22 23 23 B/P (MAP) 105/63 (77) 104/62 (76) 106/61 (76) 102/62 (75) Pulse Ox 90 91 90 91 09/01/20 09/01/20 09/01/20 09/01/20 20:30 20:31 20:34 20:37 Pulse 71 72 69 73 Resp 23 23 22 22 B/P (MAP) 107/66 (80) 103/55 (71) 99/57 (71) Pulse Ox 91 91 90 90 09/01/20 09/01/20 09/01/20 09/01/20 20:40 20:43 20:45 20:46 Pulse 71 70 77 72 Resp 22 22 22 22 B/P (MAP) 105/61 (76) 103/62 (76) 111/64 (80) Pulse Ox 90 90 91 92 09/01/20 09/01/20 09/01/20 09/01/20 20:49 20:52 20:55 20:58 Pulse 73 73 67 74 Resp 22 22 22 23 B/P (MAP) 104/61 (75) 108/62 (77) 111/63 (79) 108/63 (78) Pulse Ox 92 92 93 92 09/01/20 09/01/20 09/01/20 09/01/20 21:10 21:11 21:12 21:12 Pulse 74 74 74 74 Resp 22 22 22 22 Pulse Ox 91 91 91 91 FiO2 100 09/01/20 09/01/20 09/01/20 09/01/20 21:46 21:49 21:52 21:55 Pulse 80 80 79 79 Resp 22 22 22 22 B/P (MAP) 106/62 (77) 110/63 (79) 109/63 (78) 110/58 (75) Pulse Ox 91 92 91 91 09/01/20 09/01/20 09/01/20 09/01/20 21:58 22:00 22:01 22:04 Pulse 79 78 80 80 Resp 22 22 22 23 B/P (MAP) 108/59 (75) 108/64 (79) 106/60 (75) Pulse Ox 92 92 92 92 09/01/20 09/01/20 09/01/20 09/01/20 22:07 22:10 22:13 22:15 Pulse 81 79 77 80 Resp 25 24 24 23 B/P (MAP) 107/61 (76) 107/63 (78) 110/65 (80) Pulse Ox 92 92 92 92 09/01/20 09/01/20 09/01/20 09/01/20 22:16 22:19 22:22 22:25 Pulse 79 80 80 77 Resp 24 25 24 25 B/P (MAP) 106/60 (75) 111/61 (78) 109/62 (78) 109/61 (77) Pulse Ox 92 92 92 92 09/01/20 09/01/20 09/01/20 09/01/20 22:28 22:30 22:31 22:34 Pulse 77 80 78 78 Resp 24 24 24 23 B/P (MAP) 110/67 (81) 106/63 (77) 110/63 (79) Pulse Ox 92 92 92 92 09/01/20 09/01/20 09/01/20 09/01/20 23:10 23:30 23:31 23:34 Pulse 76 77 74 76 Resp 22 22 23 26 B/P (MAP) 113/62 (79) 107/62 (77) Pulse Ox 92 92 92 92 FiO2 100 09/01/20 09/01/20 09/01/20 09/01/20 23:37 23:40 23:43 23:45 Pulse 76 76 73 75 Resp 26 26 26 27 B/P (MAP) 109/61 (77) 109/58 (75) 112/62 (79) Pulse Ox 92 93 93 93 09/01/20 09/01/20 09/01/20 09/01/20 23:46 23:49 23:52 23:55 Pulse 74 74 83 72 Resp B/P (MAP) 112/59 (76) 113/66 (82) 116/67 (83) 117/66 (83) Pulse Ox 93 93 94 93 09/01/20 09/02/20 09/02/20 09/02/20 23:58 00:00 00:00 00:13 Pulse 78 80 75 Resp B/P (MAP) 118/65 (82) 114/66 (82) Pulse Ox 93 93 93 O2 Delivery Mechanical Ventilator FiO2 100 09/02/20 09/02/20 09/02/20 09/02/20 00:15 00:16 00:19 00:22 Pulse 76 77 75 75 Resp B/P (MAP) 118/65 (82) 114/67 (83) 119/63 (81) Pulse Ox 93 93 92 93 09/02/20 09/02/20 09/02/20 09/02/20 00:25 00:28 00:30 00:31 Pulse 76 75 76 77 Resp B/P (MAP) 117/68 (84) 115/65 (82) 115/64 (81) Pulse Ox 93 92 92 92 09/02/20 09/02/20 09/02/20 09/02/20 00:34 00:37 00:40 00:43 Pulse 77 80 79 80 Resp B/P (MAP) 112/62 (79) 110/63 (79) 110/63 (79) 107/64 (78) Pulse Ox 93 92 92 92 09/02/20 09/02/20 09/02/20 09/02/20 00:45 00:46 00:49 00:52 Pulse 82 81 79 80 Resp B/P (MAP) 108/63 (78) 109/61 (77) 107/67 (80) Pulse Ox 92 92 92 93 09/02/20 09/02/20 09/02/20 09/02/20 00:55 00:58 01:13 01:15 Pulse 80 77 80 73 Resp 24 25 35 22 B/P (MAP) 109/65 (80) 109/63 (78) 114/60 (78) Pulse Ox 92 93 88 91 09/02/20 09/02/20 09/02/20 09/02/20 01:16 01:19 01:22 01:25 Pulse 76 77 75 74 Resp 22 B/P (MAP) 107/64 (78) 108/59 (75) 110/63 (79) 109/62 (78) Pulse Ox 92 92 92 93 09/02/20 09/02/20 09/02/20 09/02/20 01:28 01:30 01:31 01:34 Pulse 73 73 75 77 Resp B/P (MAP) 110/61 (77) 109/63 (78) 107/61 (76) Pulse Ox 92 92 92 93 09/02/20 09/02/20 09/02/20 09/02/20 01:37 01:40 01:43 01:45 Pulse 76 76 75 74 Resp 22 B/P (MAP) 105/64 (78) 105/62 (76) 104/63 (77) Pulse Ox 93 92 92 92 09/02/20 09/02/20 09/02/20 09/02/20 01:46 01:49 01:52 01:55 Pulse 75 77 79 75 Resp 23 B/P (MAP) 113/62 (79) 108/64 (79) 107/61 (76) 107/62 (77) Pulse Ox 92 93 93 93 09/02/20 09/02/20 09/02/20 09/02/20 01:58 02:20 02:25 02:28 Pulse 76 79 74 71 Resp 22 B/P (MAP) 110/61 (77) 104/61 (75) 104/59 (74) Pulse Ox 92 93 93 93 FiO2 100 09/02/20 09/02/20 09/02/20 09/02/20 02:30 02:31 02:34 02:37 Pulse 73 70 69 70 Resp 22 B/P (MAP) 104/59 (74) 103/60 (74) 102/58 (73) Pulse Ox 93 93 93 93 11/22/09/02/20 09/02/20 09/02/20 02:40 02:43 02:45 02:46 Pulse 70 73 73 71 Resp B/P (MAP) 105/60 (75) 103/59 (74) 102/60 (74) Pulse Ox 93 93 93 93 09/02/20 09/02/20 09/02/20 09/02/20 02:49 02:52 02:55 02:58 Pulse 72 74 75 72 Resp B/P (MAP) 105/60 (75) 101/59 (73) 102/56 (71) 103/55 (71) Pulse Ox 93 93 93 93 09/02/20 09/02/20 09/02/20 09/02/20 03:00 03:01 03:04 03:07 Pulse 73 71 69 70 Resp B/P (MAP) 102/58 (73) 100/57 (71) 99/57 (71) Pulse Ox 93 93 93 93 09/02/20 09/02/20 09/02/20 09/02/20 03:10 03:13 03:22 03:25 Pulse 70 71 71 69 Resp B/P (MAP) 99/59 (72) 102/56 (71) 100/60 (73) 102/60 (74) Pulse Ox 93 93 93 93 09/02/20 09/02/20 09/02/20 09/02/20 03:28 03:29 03:31 03:34 Pulse 69 71 70 69 Resp B/P (MAP) 102/58 (73) 103/56 (72) 101/60 (74) Pulse Ox 93 93 93 93 09/02/20 09/02/20 09/02/20 09/02/20 03:37 03:40 03:43 03:44 Pulse 71 69 72 70 Resp B/P (MAP) 105/61 (76) 105/54 (71) 102/58 (73) Pulse Ox 93 93 93 92 09/02/20 09/02/20 09/02/20 09/02/20 03:46 03:49 03:52 03:55 Pulse 69 71 74 75 Resp B/P (MAP) 104/59 (74) 101/56 (71) 104/58 (73) 102/59 (73) Pulse Ox 93 93 93 93 09/02/20 09/02/20 09/02/20 09/02/20 03:58 03:59 04:00 04:00 Pulse 72 76 80 Resp B/P (MAP) 104/56 (72) Pulse Ox 92 93 93 O2 Delivery Mechanical Ventilator FiO2 100 09/02/20 09/02/20 09/02/20 09/02/20 04:01 04:04 04:04 04:08 Pulse 75 87 Resp 22 B/P (MAP) 103/61 (75) 107/56 (73) 107/56 (73) Pulse Ox 92 90 90 94 09/02/20 09/02/20 09/02/20 09/02/20 04:08 04:09 04:09 04:22 Temp 98.8 Pulse 87 Resp B/P (MAP) 123/65 (84) Pulse Ox 94 92 92 09/02/20 09/02/20 09/02/20 09/02/20 04:24 04:28 04:30 04:31 Temp 98.8 98.6 98.6 98.6 Pulse 123 120 126 115 Resp B/P (MAP) 128/73 (91) 121/77 (92) 129/70 (89) Pulse Ox 97 98 98 98 09/02/20 09/02/20 09/02/20 09/02/20 04:34 04:37 04:40 04:43 Temp 98.6 98.6 98.6 98.6 Pulse 114 105 97 94 Resp B/P (MAP) 127/83 (98) 127/82 (97) 118/63 (81) 115/64 (81) Pulse Ox 97 98 97 97 09/02/20 09/02/20 09/02/20 09/02/20 04:45 04:46 04:49 04:49 Temp 98.6 98.6 98.6 Pulse 94 92 87 118 Resp B/P (MAP) 118/72 (87) 139/87 (104) Pulse Ox 97 96 94 98 FiO2 100 09/02/20 09/02/20 09/02/20 09/02/20 04:52 04:55 04:58 05:07 Temp 98.6 98.6 98.6 98.6 Pulse 122 116 104 90 Resp 34 36 32 28 B/P (MAP) 144/95 (111) 130/74 (92) 123/66 (85) 113/67 (82) Pulse Ox 98 98 98 97 09/02/20 09/02/20 09/02/20 09/02/20 05:10 05:13 05:15 05:16 Temp 98.6 98.6 98.6 98.6 Pulse 105 99 122 104 Resp B/P (MAP) 130/76 (94) 129/77 (94) 129/72 (91) Pulse Ox 97 97 98 97 09/02/20 09/02/20 09/02/20 09/02/20 05:19 05:22 05:25 05:28 Temp 98.6 98.6 98.6 98.6 Pulse 104 112 113 95 Resp B/P (MAP) 125/74 (91) 140/95 (110) 136/70 (92) 119/62 (81) Pulse Ox 98 98 98 97 09/02/20 09/02/20 09/02/20 09/02/20 05:30 05:31 05:34 05:37 Temp 98.6 98.6 98.6 98.6 Pulse 93 91 92 93 Resp B/P (MAP) 113/65 (81) 113/62 (79) 118/66 (83) Pulse Ox 97 97 97 97 09/02/20 09/02/20 09/02/20 09/02/20 05:40 05:43 05:45 05:46 Temp 98.6 98.6 98.6 98.6 Pulse 105 103 96 95 Resp B/P (MAP) 125/74 (91) 136/83 (100) 116/66 (83) Pulse Ox 98 98 98 98 09/02/20 09/02/20 09/02/20 09/02/20 05:49 05:52 07:00 07:00 Temp 98.6 98.6 Pulse 90 91 80 Resp B/P (MAP) 116/64 (81) 111/57 (75) Pulse Ox 97 97 93 O2 Delivery Mechanical Ventilator FiO2 100 09/02/20 09/02/20 09/02/20 09/02/20 07:21 07:21 07:28 07:30 Temp 99.0 99.0 Pulse 98 98 83 87 Resp 23 B/P (MAP) 112/65 (81) Pulse Ox 97 97 97 97 FiO2 100 09/02/20 09/02/20 09/02/20 09/02/20 07:31 07:34 07:37 07:40 Temp 99.0 99.0 99.0 99.1 Pulse 80 80 80 78 Resp 23 B/P (MAP) 106/60 (75) 108/62 (77) 107/56 (73) 112/65 (81) Pulse Ox 97 97 97 97 09/02/20 09/02/20 09/02/20 09/02/20 07:43 07:45 07:46 07:49 Temp 99.1 99.1 99.1 99.1 Pulse 81 78 85 84 Resp B/P (MAP) 106/58 (74) 108/60 (76) 107/60 (76) Pulse Ox 97 97 97 97 09/02/20 09/02/20 09/02/20 09/02/20 07:52 07:55 07:58 08:00 Temp 99.1 99.1 99.3 99.1 Pulse 83 100 94 87 Resp 34 43 26 45 B/P (MAP) 106/59 (75) 113/71 (85) 107/67 (80) Pulse Ox 97 97 97 97 09/02/20 09/02/20 09/02/20 09/02/20 08:01 08:04 08:07 08:10 Temp 99.1 99.3 99.1 99.1 Pulse 84 84 83 83 Resp 36 36 25 28 B/P (MAP) 105/57 (73) 99/60 (73) 103/62 (76) 101/51 (68) Pulse Ox 97 96 97 96 09/02/20 09/02/20 09/02/20 09/02/20 08:13 08:30 08:31 08:34 Temp 99.1 99.3 99.3 99.3 Pulse 84 84 83 82 Resp 24 B/P (MAP) 102/53 (69) 104/59 (74) 103/56 (72) Pulse Ox 96 96 96 96 09/02/20 09/02/20 09/02/20 11/22/20 08:37 08:40 08:43 08:45 Temp 99.3 99.3 99.3 99.3 Pulse 80 84 84 83 Resp B/P (MAP) 97/54 (68) 103/54 (70) 97/58 (71) Pulse Ox 96 96 96 96 09/02/20 09/02/20 09/02/20 09/02/20 08:46 08:49 08:52 08:55 Temp 99.3 99.3 99.3 99.3 Pulse 82 83 83 84 Resp B/P (MAP) 97/55 (69) 97/55 (69) 100/58 (72) 96/59 (71) Pulse Ox 96 96 96 96 09/02/20 09/02/20 09/02/20 09/02/20 08:58 09:00 09:01 09:04 Temp 99.3 99.3 99.5 99.3 Pulse 83 90 95 98 Resp B/P (MAP) 102/57 (72) 130/76 (94) 133/81 (98) Pulse Ox 96 97 97 97 09/02/20 09/02/20 09/02/20 09/02/20 09:06 09:06 09:07 09:10 Temp 99.3 99.3 Pulse 99 98 99 95 Resp B/P (MAP) 135/76 (95) 136/79 (98) Pulse Ox 97 97 97 98 09/02/20 09/02/20 09/02/20 09/02/20 09:13 09:15 09:15 09:16 Temp 99.3 99.3 99.3 99.3 Pulse 85 102 102 84 Resp B/P (MAP) 145/91 (109) 131/78 (95) Pulse Ox 98 98 98 97 09/02/20 09/02/20 09/02/20 09/02/20 09:16 09:30 09:32 09:45 Temp 99.3 99.1 99.1 99.3 Pulse 84 82 84 80 Resp B/P (MAP) 131/78 (95) 114/63 (80) Pulse Ox 97 97 98 98 09/02/20 09/02/20 09/02/2020 09:47 09:59 10:00 10:02 Temp 99.3 99.3 99.3 Pulse 79 83 81 80 Resp B/P (MAP) 114/62 (79) 110/61 (77) Pulse Ox 98 98 98 98 FiO2 100 09/02/20 09/02/20 09/02/20 09/02/20 10:15 10:15 10:17 10:17 Temp 99.3 99.3 99.3 99.3 Pulse 84 84 83 83 Resp B/P (MAP) 114/61 (78) 114/61 (78) Pulse Ox 97 97 98 98 09/02/20 09/02/20 09/02/20 09/02/20 10:30 10:30 10:32 10:45 Temp 99.3 99.3 99.3 Pulse 84 82 85 Resp B/P (MAP) 111/61 (78) Pulse Ox 97 97 97 FiO2 90 09/02/20 09/02/20 09/02/20 09/02/20 10:47 11:00 11:02 11:15 Temp 99.3 99.3 99.5 99.5 Pulse 84 89 87 91 Resp B/P (MAP) 108/60 (76) 111/61 (78) Pulse Ox 97 97 96 95 09/02/20 09/02/20 09/02/20 09/02/20 11:17 11:26 11:26 11:30 Temp 99.5 Pulse 87 80 80 Resp B/P (MAP) 111/67 (82) Pulse Ox 95 93 93 O2 Delivery Mechanical Ventilator FiO2 100 90 09/02/20 09/02/20 09/02/20 09/02/20 11:30 11:32 11:39 11:45 Temp 99.5 99.5 99.5 Pulse 83 85 90 85 Resp B/P (MAP) 118/68 (85) Pulse Ox 96 95 97 97 FiO2 90 09/02/20 09/02/20 09/02/20 09/02/20 11:45 11:47 11:47 12:00 Temp 99.5 99.5 99.5 99.5 Pulse 85 89 89 84 Resp B/P (MAP) 126/69 (88) 126/69 (88) Pulse Ox 97 96 96 97 09/02/20 09/02/20 09/02/20 09/02/20 12:02 12:15 12:17 12:30 Temp 99.5 99.5 99.5 99.3 Pulse 83 81 82 86 Resp B/P (MAP) 121/68 (85) 120/67 (84) Pulse Ox 97 97 97 96 09/02/20 09/02/20 09/02/20 09/02/20 12:32 12:45 12:47 13:00 Temp 99.3 99.3 99.3 99.3 Pulse 81 82 79 82 Resp B/P (MAP) 116/71 (86) 113/70 (84) Pulse Ox 96 96 96 96 09/02/20 09/02/20 09/02/20 09/02/20 13:02 13:47 14:00 14:02 Temp 99.3 99.3 99.3 99.5 Pulse 81 75 79 73 Resp B/P (MAP) 111/65 (80) 113/66 (82) 113/65 (81) Pulse Ox 95 97 97 96 09/02/20 09/02/20 09/02/20 09/02/20 14:11 14:15 14:17 14:30 Temp 99.5 99.5 99.5 Pulse 78 80 76 81 Resp B/P (MAP) 119/71 (87) Pulse Ox 98 96 97 95 FiO2 90 09/02/20 09/02/20 09/02/20 09/02/20 14:32 14:45 14:47 15:00 Temp 99.5 99.7 99.7 99.7 Pulse 79 77 78 87 Resp B/P (MAP) 112/67 (82) 115/68 (84) Pulse Ox 96 96 96 09/02/20 09/02/20 09/02/20 09/02/20 15:02 15:15 15:17 15:30 Temp 99.7 99.7 99.7 99.7 Pulse 66 69 67 76 Resp B/P (MAP) 119/67 (84) 119/70 (86) Pulse Ox 93 96 96 97 09/02/20 09/02/20 09/02/20 09/02/20 15:32 15:45 15:47 15:48 Temp 99.7 99.7 99.7 Pulse 76 76 80 78 Resp B/P (MAP) 115/69 (84) 116/67 (83) Pulse Ox 97 97 97 96 09/02/20 09/02/20 09/02/20 09/02/20 15:48 15:51 16:00 16:02 Temp 99.9 99.9 Pulse 78 77 76 77 Resp B/P (MAP) 113/70 (84) Pulse Ox 96 97 97 97 FiO2 90 09/02/20 09/02/20 09/02/20 09/02/20 16:15 16:17 16:26 16:26 Temp 99.9 99.9 Pulse 79 79 80 Resp 09 23 27 B/P (MAP) 113/68 (83) Pulse Ox 97 97 93 O2 Delivery Mechanical Ventilator FiO2 90 09/02/20 09/02/20 09/02/20 09/02/20 16:30 16:45 16:47 17:00 Temp 100.0 100.0 100.0 100.0 Pulse 82 80 78 78 Resp B/P (MAP) 115/65 (82) Pulse Ox 97 97 97 97 09/02/20 09/02/20 09/02/20 09/02/20 17:02 17:15 17:17 17:29 Temp 100.0 100.2 100.2 Pulse 75 74 75 69 Resp 04 22 22 B/P (MAP) 120/73 (89) 116/73 (87) Pulse Ox 97 97 97 98 FiO2 90 09/02/20 09/02/20 09/02/20 09/02/20 17:30 17:30 17:32 17:45 Temp 100.2 100.2 100.4 Pulse 69 74 69 71 Resp B/P (MAP) 118/73 (88) Pulse Ox 98 97 97 97 O2 Delivery Mechanical Ventilator FiO2 90 09/02/20 09/02/20 09/02/20 09/02/20 17:47 18:00 18:02 18:15 Temp 100.4 100.4 100.4 100.4 Pulse 70 68 68 72 Resp B/P (MAP) 118/70 (86) 117/72 (87) Pulse Ox 97 98 98 98 09/02/20 09/02/20 09/02/20 09/02/20 18:17 18:47 19:02 19:17 Temp 100.4 100.4 100.4 100.4 Pulse 68 63 63 61 Resp 14 B/P (MAP) 117/71 (86) 119/74 (89) 117/76 (90) 121/77 (92) Pulse Ox 98 97 97 97 09/02/20 09/02/20 09/02/20 09/02/20 19:32 19:47 20:00 20:00 Temp 100.4 100.6 Pulse 61 60 62 Resp 21 B/P (MAP) 121/72 (88) 117/73 (88) Pulse Ox 97 97 99 O2 Delivery Mechanical Ventilator 09/02/20 09/02/20 09/02/20 09/02/20 20:00 20:00 20:00 20:02 Temp 100.6 Pulse 60 57 57 63 Resp B/P (MAP) 116/70 (85) Pulse Ox 96 98 98 98 FiO2 90 90 09/02/20 09/02/20 09/02/20 09/02/20 20:17 20:32 20:47 21:02 Temp 100.6 100.6 100.6 100.6 Pulse 59 59 60 59 Resp B/P (MAP) 120/72 (88) 116/71 (86) 117/71 (86) 117/73 (88) Pulse Ox 98 98 98 98 09/02/20 09/02/20 09/02/20 09/02/20 21:17 21:32 21:47 22:02 Temp 100.8 100.8 100.8 100.8 Pulse 58 59 61 58 Resp B/P (MAP) 122/73 (89) 117/69 (85) 116/72 (87) 117/72 (87) Pulse Ox 98 97 97 97 09/02/20 09/02/20 09/02/20 09/02/20 22:17 22:30 22:37 22:47 Temp 100.8 100.6 100.4 Pulse 55 68 81 60 Resp B/P (MAP) 125/72 (89) 130/61 (84) 133/75 (94) Pulse Ox 98 96 75 97 FiO2 90 09/02/20 09/02/20 09/02/20 09/02/20 23:02 23:11 23:11 23:17 Temp 100.2 100.0 Pulse 65 68 63 Resp 22 B/P (MAP) 133/76 (95) 129/70 (89) Pulse Ox 100 96 100 O2 Delivery Mechanical Ventilator FiO2 90 09/02/20 09/02/20 09/03/20 09/03/20 23:32 23:47 00:02 00:17 Temp 100.0 100.0 100.0 100.0 Pulse 65 66 60 60 Resp 26 B/P (MAP) 120/62 (81) 112/66 (81) 118/69 (85) 118/74 (89) Pulse Ox 100 100 99 100 09/03/20 09/03/20 09/03/20 09/03/20 00:32 00:47 01:00 01:02 Temp 100.0 99.9 99.9 Pulse 59 59 62 58 Resp B/P (MAP) 117/72 (87) 116/66 (83) 118/66 (83) Pulse Ox 100 100 99 100 FiO2 90 09/03/20 09/03/20 09/03/20 09/03/20 01:17 01:32 02:02 02:17 Temp 99.9 99.9 99.9 99.9 Pulse 60 58 58 57 Resp B/P (MAP) 116/69 (85) 114/65 (81) 111/65 (80) 113/65 (81) Pulse Ox 100 100 99 100 09/03/20 09/03/20 09/03/20 09/03/20 02:32 02:47 03:00 03:00 Temp 99.9 99.9 Pulse 58 61 59 Resp B/P (MAP) 114/67 (83) 109/65 (80) Pulse Ox 100 99 100 O2 Delivery Mechanical Ventilator FiO2 90 09/03/20 09/03/20 09/03/20 09/03/20 03:00 03:00 03:00 03:02 Temp 99.9 Pulse 59 59 68 59 Resp 32 32 32 37 B/P (MAP) 130/72 (91) Pulse Ox 98 98 99 100 FiO2 90 09/03/20 09/03/20 09/03/20 09/03/20 03:18 03:48 04:02 04:17 Temp 99.5 Pulse 81 91 87 90 Resp 29 36 24 29 B/P (MAP) 125/76 (92) 93/58 (70) 107/67 (80) 112/69 (83) Pulse Ox 99 93 100 95 09/03/20 09/03/20 09/03/20 09/03/20 04:32 04:47 05:02 05:17 Pulse 63 59 66 61 Resp 27 24 26 26 B/P (MAP) 117/69 (85) 116/68 (84) 110/63 (79) 110/66 (81) Pulse Ox 100 100 100 100 09/03/20 09/03/20 09/03/20 09/03/20 05:32 05:47 05:50 05:50 Pulse 63 67 68 Resp 24 25 49 25 B/P (MAP) 119/60 (79) 108/66 (80) Pulse Ox 100 99 90 99 FiO2 90 09/03/20 09/03/20 09/03/20 09/03/20 06:02 06:17 08:00 08:00 Pulse 65 71 53 Resp 26 27 22 B/P (MAP) 110/65 (80) 106/66 (79) Pulse Ox 100 100 100 O2 Delivery Mechanical Ventilator FiO2 70 09/03/20 09/03/20 09/03/20 09/03/20 08:06 08:06 08:07 08:17 Pulse 61 61 61 61 Resp 26 26 25 25 Pulse Ox 98 98 98 98 O2 Delivery Mechanical Ventilator FiO2 90 90 09/03/20 09/03/20 09/03/20 09/03/20 10:21 12:00 12:00 13:50 Pulse 75 53 75 Resp 36 22 22 Pulse Ox 99 100 99 O2 Delivery Mechanical Ventilator FiO2 80 70 80 09/03/20 09/03/20 09/03/20 09/03/20 15:24 15:24 15:35 16:00 Pulse 58 75 58 53 Resp 31 22 31 22 Pulse Ox 99 99 99 100 FiO2 80 70 09/03/20 09/03/20 09/03/20 09/03/20 16:00 16:17 16:30 16:32 Temp 99.7 99.7 99.7 Pulse 63 57 60 Resp 50 48 82 B/P (MAP) 141/77 (98) 144/82 (102) Pulse Ox 99 100 99 O2 Delivery Mechanical Ventilator 09/03/20 09/03/20 09/03/20 09/03/20 16:45 16:47 17:00 17:02 Temp 99.7 99.7 99.7 99.7 Pulse 57 55 56 54 Resp 49 42 28 37 B/P (MAP) 145/79 (101) 143/79 (100) Pulse Ox 100 100 100 100 09/03/20 09/03/20 09/03/20 09/03/20 17:15 17:17 17:30 17:32 Temp 99.7 99.7 99.7 99.7 Pulse 70 65 57 60 Resp 30 B/P (MAP) 128/65 (86) 129/66 (87) Pulse Ox 99 100 100 100 09/03/20 09/03/20 09/03/20 09/03/20 17:45 17:47 17:52 18:00 Temp 99.5 99.5 99.5 Pulse 54 54 53 53 Resp B/P (MAP) 123/67 (85) Pulse Ox 100 100 100 100 FiO2 80 09/03/20 09/03/20 09/03/20 09/03/20 18:02 18:06 18:15 18:17 Temp 99.5 99.5 99.7 99.7 Pulse 52 54 53 53 Resp B/P (MAP) 129/67 (87) 126/66 (86) 128/68 (88) Pulse Ox 100 100 100 100 09/03/20 09/03/20 09/03/20 09/03/20 18:21 19:21 19:21 19:21 Temp 99.7 100.0 Pulse 53 52 52 Resp B/P (MAP) 130/72 (91) 131/74 (93) Pulse Ox 100 100 100 O2 Delivery Mechanical Ventilator FiO2 70 09/03/20 09/03/20 09/03/20 09/03/20 19:36 19:51 20:00 20:00 Temp 100.0 100.0 Pulse 53 64 59 64 Resp B/P (MAP) 126/72 (90) 125/68 (87) Pulse Ox 100 100 99 99 FiO2 70 09/03/20 09/03/20 09/03/20 09/03/20 20:00 20:00 20:06 20:21 Temp 99.9 100.0 Pulse 59 59 78 64 Resp 22 22 25 B/P (MAP) 128/90 (103) 136/60 (85) Pulse Ox 99 99 99 100 O2 Delivery Mechanical Ventilator FiO2 70 09/03/20 09/03/20 09/03/20 09/03/20 20:36 20:51 21:06 21:15 Temp 99.9 99.9 99.7 99.7 Pulse 54 59 69 62 Resp 30 22 22 22 B/P (MAP) 123/62 (82) 126/74 (91) 117/63 (81) Pulse Ox 100 99 98 100 09/03/20 09/03/20 09/03/20 09/03/20 21:21 21:30 21:36 21:51 Temp 99.7 99.7 99.7 99.9 Pulse 62 63 61 58 Resp 22 22 22 18 B/P (MAP) 123/69 (87) 126/72 (90) 128/75 (92) Pulse Ox 100 100 100 100 09/03/20 09/03/20 09/03/20 09/03/20 22:06 22:06 22:21 22:36 Temp 99.9 99.9 99.9 Pulse 57 59 56 57 Resp 25 15 23 B/P (MAP) 128/70 (89) 133/73 (93) 135/82 (99) Pulse Ox 100 100 100 100 FiO2 70 09/03/20 09/03/20 09/03/20 09/03/20 22:51 23:03 23:03 23:06 Temp 100.0 100.0 Pulse 57 60 62 Resp 22 22 13 B/P (MAP) 133/74 (93) 125/71 (89) Pulse Ox 100 100 100 O2 Delivery Mechanical Ventilator FiO2 70 09/03/20 09/03/20 09/03/20 09/04/20 23:21 23:37 23:51 00:06 Temp 100.2 100.2 100.2 100.0 Pulse 75 93 75 65 Resp 9 63 22 24 B/P (MAP) 116/63 (80) 152/119 (130) 129/69 (89) 136/70 (92) Pulse Ox 100 88 100 100 09/04/20 09/04/20 09/04/20 09/04/20 00:21 00:36 00:51 01:00 Temp 100.0 100.2 100.2 Pulse 80 61 56 55 Resp 35 24 23 22 B/P (MAP) 136/69 (91) 128/71 (90) 131/72 (91) Pulse Ox 99 98 99 100 FiO2 70 09/04/20 09/04/20 09/04/20 09/04/20 01:06 01:21 01:36 01:51 Temp 100.4 100.4 100.4 100.4 Pulse 58 56 56 58 Resp 22 B/P (MAP) 131/75 (93) 132/72 (92) 130/76 (94) 127/73 (91) Pulse Ox 100 100 100 100 09/04/20 09/04/20 09/04/20 09/04/20 02:06 02:21 02:30 02:30 Temp 100.6 100.6 Pulse 68 64 64 64 Resp 18 20 25 25 B/P (MAP) 120/68 (85) 122/67 (85) Pulse Ox 100 100 99 99 FiO2 70 09/04/20 09/04/20 09/04/20 09/04/20 02:30 02:36 02:51 03:06 Temp 100.6 100.8 100.8 Pulse 64 60 66 65 Resp 20 25 19 B/P (MAP) 123/67 (85) 122/69 (86) 120/66 (84) Pulse Ox 100 100 99 100 09/04/20 09/04/20 09/04/20 09/04/20 03:11 03:11 03:21 03:36 Temp 100.8 100.6 Pulse 65 64 63 Resp 21 19 29 B/P (MAP) 126/67 (86) 121/67 (85) Pulse Ox 100 100 99 O2 Delivery Mechanical Ventilator FiO2 70 09/04/20 09/04/20 09/04/20 09/04/20 03:51 04:06 04:21 04:36 Temp 100.4 100.4 100.4 100.4 Pulse 56 55 56 72 Resp 25 8 25 33 B/P (MAP) 128/67 (87) 126/74 (91) 123/69 (87) 113/67 (82) Pulse Ox 99 100 100 97 09/04/20 09/04/20 09/04/20 09/04/20 04:43 04:51 05:06 05:21 Temp 100.2 100.4 100.2 Pulse 60 77 82 68 Resp 25 38 39 32 B/P (MAP) 113/63 (80) 116/71 (86) 112/58 (76) Pulse Ox 100 93 93 92 FiO2 70 09/04/20 09/04/20 09/04/20 09/04/20 05:36 05:51 06:00 06:06 Temp 100.2 100.2 100.2 Pulse 59 58 57 59 Resp 23 B/P (MAP) 121/66 (84) 119/72 (88) 115/66 (82) Pulse Ox 96 97 97 98 FiO2 70 09/04/20 09/04/20 09/04/20 09/04/20 06:21 06:36 08:00 08:00 Temp 100.4 100.4 Pulse 69 74 53 Resp 25 27 22 B/P (MAP) 110/63 (79) 110/60 (77) Pulse Ox 98 98 100 O2 Delivery Mechanical Ventilator FiO2 70 09/04/20 09/04/20 09/04/20 09/04/20 08:11 08:11 08:11 08:11 Pulse 66 74 66 66 Resp 25 25 Pulse Ox 94 98 94 94 O2 Delivery Mechanical Ventilator FiO2 70 70 09/04/20 09/04/20 09/04/20 09/04/20 10:11 10:26 10:33 10:41 Temp 100.0 100.4 100.4 Pulse 75 71 78 70 Resp 26 B/P (MAP) 101/58 111/60 103/60 Pulse Ox 98 FiO2 80 09/04/20 09/04/20 09/04/20 09/04/20 11:01 11:31 12:00 12:00 Temp 100.3 100.3 Pulse 79 67 53 Resp 22 B/P (MAP) 111/60 109/59 Pulse Ox 100 O2 Delivery Mechanical Ventilator FiO2 80 09/04/20 09/04/20 09/04/20 09/04/20 13:06 13:15 13:21 13:30 Temp 100.4 100.4 100.4 100.2 Pulse 72 76 73 69 Resp 54 42 25 27 B/P (MAP) 121/70 (87) 115/64 (81) Pulse Ox 98 97 97 95 09/04/20 09/04/20 09/04/20 09/04/20 13:36 13:45 13:51 14:00 Temp 100.0 100.0 100.0 100.0 Pulse 68 75 66 71 Resp 30 36 35 48 B/P (MAP) 117/61 (79) 120/72 (88) Pulse Ox 95 95 93 95 09/04/20 09/04/20 09/04/20 09/04/20 14:06 14:09 14:09 14:09 Temp 100.0 Pulse 67 105 105 105 Resp 88 35 35 35 B/P (MAP) 124/60 (81) Pulse Ox 94 94 94 94 FiO2 80 09/04/20 09/04/20 09/04/20 09/04/20 14:15 14:21 14:30 14:36 Temp 100.0 100.0 100.0 99.9 Pulse 67 60 74 62 Resp 28 B/P (MAP) 117/68 (84) 127/70 (89) Pulse Ox 91 92 92 93 09/04/20 09/04/20 09/04/20 09/04/20 14:45 14:51 15:00 15:06 Temp 99.9 99.9 99.7 99.7 Pulse 63 60 68 64 Resp 22 96 22 22 B/P (MAP) 121/66 (84) 122/68 (86) Pulse Ox 96 98 99 100 09/04/20 09/04/20 09/04/20 09/04/20 15:15 15:21 15:36 15:45 Temp 99.7 99.7 99.5 99.5 Pulse 61 59 57 57 Resp 22 22 22 22 B/P (MAP) 122/69 (86) 118/72 (87) Pulse Ox 100 100 100 100 09/04/20 09/04/20 09/04/20 09/04/20 15:51 16:00 16:00 16:00 Temp 99.5 99.5 Pulse 56 53 58 Resp 26 22 23 B/P (MAP) 117/68 (84) Pulse Ox 100 100 100 O2 Delivery Mechanical Ventilator FiO2 80 09/04/20 09/04/20 09/04/20 09/04/20 16:06 16:15 16:21 16:30 Temp 99.3 99.3 99.3 99.5 Pulse 68 77 80 73 Resp 27 26 33 37 B/P (MAP) 136/75 (95) 131/67 (88) Pulse Ox 99 97 96 96 09/04/20 09/04/20 09/04/20 09/04/20 16:36 16:45 16:45 16:51 Temp 99.5 99.5 99.5 Pulse 73 74 80 69 Resp 38 22 22 22 B/P (MAP) 132/76 (94) 119/68 (85) Pulse Ox 95 96 95 96 FiO2 80 09/04/20 09/04/20 09/04/20 09/04/20 17:00 17:06 17:15 17:21 Temp 99.5 99.5 99.5 99.5 Pulse 65 66 61 63 Resp 22 B/P (MAP) 121/72 (88) 119/71 (87) Pulse Ox 96 97 98 98 09/04/20 09/04/20 09/04/20 09/04/20 17:30 17:36 17:45 17:51 Temp 99.5 99.3 99.3 99.3 Pulse 59 57 56 55 Resp 22 22 22 B/P (MAP) 115/68 (84) 116/71 (86) Pulse Ox 99 99 99 99 09/04/20 09/04/20 09/04/20 09/04/20 19:00 19:00 19:06 19:21 Temp 98.6 98.6 Pulse 50 50 52 Resp 22 22 B/P (MAP) 120/68 (85) 127/67 (87) Pulse Ox 100 98 98 O2 Delivery Mechanical Ventilator FiO2 80 09/04/20 09/04/20 09/04/20 09/04/20 19:36 19:51 20:00 20:00 Temp 98.6 98.6 Pulse 50 52 50 50 Resp 22 22 22 B/P (MAP) 120/75 (90) 115/65 (82) Pulse Ox 99 99 98 98 O2 Delivery Mechanical Ventilator FiO2 80 80 09/04/20 09/04/20 09/04/20 09/04/20 20:00 20:00 20:06 20:21 Temp 98.6 98.4 Pulse 50 50 53 51 Resp B/P (MAP) 113/66 (82) 112/68 (83) Pulse Ox 98 98 98 98 09/04/20 09/04/20 09/04/20 09/04/20 20:36 20:51 21:06 21:21 Temp 98.4 98.2 98.2 98.1 Pulse 51 51 78 62 Resp 22 B/P (MAP) 110/63 (79) 109/66 (80) 112/71 (85) 105/60 (75) Pulse Ox 98 99 99 97 09/04/20 09/04/20 09/04/20 09/04/20 21:36 21:51 22:06 22:12 Temp 98.1 98.1 98.1 Pulse 68 63 61 54 Resp B/P (MAP) 119/63 (81) 117/69 (85) 121/68 (85) Pulse Ox 96 92 92 99 FiO2 80 09/04/20 09/04/20 09/04/20 09/04/20 22:21 22:36 22:51 23:00 Temp 98.1 98.1 98.2 Pulse 62 63 60 60 Resp B/P (MAP) 121/69 (86) 132/73 (92) 117/66 (83) Pulse Ox 92 97 97 100 FiO2 80 09/04/20 09/04/20 09/04/20 09/04/20 23:00 23:06 23:21 23:36 Temp 98.2 98.2 98.4 Pulse 59 57 57 Resp B/P (MAP) 115/68 (84) 111/68 (82) 112/63 (79) Pulse Ox 97 98 98 O2 Delivery Mechanical Ventilator 09/04/20 09/05/20 09/05/20 09/05/20 23:51 00:06 00:21 00:36 Temp 98.4 98.2 98.2 98.2 Pulse 56 56 58 58 Resp 24 B/P (MAP) 107/64 (78) 111/66 (81) 111/62 (78) 108/61 (77) Pulse Ox 97 96 95 93 1109/05/20 09/05/20 09/05/20 00:51 01:07 01:21 01:24 Temp 98.2 98.4 Pulse 57 81 99 84 Resp B/P (MAP) 108/68 (81) 106/59 (75) 105/67 (80) Pulse Ox 92 95 82 95 FiO2 80 09/05/20 09/05/20 09/05/20 09/05/20 01:36 01:51 02:06 02:21 Temp 98.6 99.0 99.1 Pulse 83 89 88 84 Resp B/P (MAP) 112/57 (75) 120/62 (81) 114/60 (78) 113/60 (77) Pulse Ox 93 92 92 91 09/05/20 09/05/20 09/05/20 09/05/20 02:36 02:51 03:00 03:00 Temp 99.3 99.5 Pulse 89 90 88 88 Resp B/P (MAP) 117/62 (80) 122/57 (78) Pulse Ox 91 90 92 92 FiO2 80 09/05/20 09/05/20 09/05/20 09/05/20 03:00 03:00 03:00 03:06 Temp 99.7 Pulse 80 88 85 Resp B/P (MAP) 130/71 (90) Pulse Ox 88 94 88 O2 Delivery Mechanical Ventilator FiO2 80 09/05/20 09/05/20 09/05/20 09/05/20 03:21 03:36 03:51 03:51 Temp 99.7 99.7 99.7 99.7 Pulse 87 108 87 87 Resp B/P (MAP) 115/65 (82) 122/68 (86) 115/67 (83) 115/67 (83) Pulse Ox 91 93 93 93 09/05/20 09/05/20 09/05/20 09/05/20 04:06 04:21 04:36 04:51 Temp 99.9 100.0 100.2 98.2 Pulse 88 93 91 91 Resp B/P (MAP) 116/64 (81) 117/62 (80) 116/67 (83) 121/68 (85) Pulse Ox 94 94 93 94 11/09/05/20 09/05/20 09/05/20 05:06 05:21 05:36 05:51 Temp 100.2 100.0 100.2 100.2 Pulse 90 98 98 89 Resp B/P (MAP) 120/72 (88) 124/73 (90) 127/72 (90) 125/66 (85) Pulse Ox 95 95 95 95 09/05/20 09/05/20 09/05/20 09/05/20 06:06 06:21 06:31 06:36 Temp 100.4 100.4 100.0 Pulse 91 93 97 95 Resp B/P (MAP) 128/68 (88) 123/71 (88) 125/69 (87) Pulse Ox 95 95 94 94 FiO2 80 09/05/20 09/05/20 09/05/20 09/05/20 06:51 07:00 07:06 07:15 Temp 100.4 100.4 100.4 100.4 Pulse 93 93 94 93 Resp B/P (MAP) 116/70 (85) 128/69 (88) Pulse Ox 95 95 95 95 09/05/20 09/05/20 09/05/20 09/05/20 07:21 07:30 07:36 07:45 Temp 100.4 100.4 100.4 100.4 Pulse 91 92 95 95 Resp B/P (MAP) 133/74 (93) 140/76 (97) Pulse Ox 95 95 95 94 09/05/20 09/05/20 09/05/20 09/05/20 07:51 08:00 08:00 08:06 Temp 100.6 100.6 100.6 Pulse 97 100 100 99 Resp B/P (MAP) 135/70 (91) 128/74 (92) Pulse Ox 94 93 94 94 FiO2 80 09/05/20 09/05/20 09/05/20 09/05/20 08:15 08:21 08:30 08:36 Temp 100.8 100.8 100.8 100.8 Pulse 109 125 113 105 Resp 36 57 36 32 B/P (MAP) 161/82 (108) 136/66 (89) Pulse Ox 93 83 91 91 09/05/20 09/05/20 09/05/20/25/20 08:45 08:51 09:00 09:00 Temp 100.8 100.8 Pulse 107 107 96 107 Resp 34 37 24 37 B/P (MAP) 126/72 (90) Pulse Ox 91 91 94 94 O2 Delivery Mechanical Ventilator FiO2 80 09/05/20 09/05/20 09/05/20 09/05/20 09:00 09:00 09:19 09:45 Pulse 96 96 Resp 24 24 Pulse Ox 94 94 O2 Delivery Mechanical Ventilator FiO2 80 90 09/05/20 09/05/20 09/05/20 09/05/20 10:36 10:45 10:51 11:00 Temp 100.9 100.9 100.9 100.9 Pulse 104 105 104 105 Resp 25 29 31 30 B/P (MAP) 146/74 (98) 141/75 (97) Pulse Ox 92 93 93 94 09/05/20 09/05/20 09/05/20 09/05/20 11:06 11:15 11:21 11:30 Temp 100.9 100.9 100.9 101.1 Pulse 104 107 106 119 Resp 29 30 32 33 B/P (MAP) 139/76 (97) 143/73 (96) Pulse Ox 94 93 93 93 09/05/20 09/05/20 09/05/20 09/05/20 11:36 11:45 11:51 12:00 Temp 101.1 101.1 101.1 Pulse 127 118 116 Resp 38 34 25 B/P (MAP) 129/77 (94) 135/72 (93) Pulse Ox 93 92 93 O2 Delivery Mechanical Ventilator 09/05/20 09/05/20 09/05/20 09/05/20 12:00 12:06 12:14 12:15 Temp 101.1 Pulse 110 107 105 Resp 34 37 24 B/P (MAP) 156/97 (116) Pulse Ox 94 83 94 92 FiO2 90 09/05/20 09/05/20 09/05/20 09/05/20 12:21 12:30 12:30 12:36 Pulse 103 109 99 101 Resp 64 39 32 27 B/P (MAP) 134/78 (96) 131/73 (92) Pulse Ox 84 92 93 FiO2 90 09/05/20 09/05/20 09/05/20 09/05/20 12:45 12:51 13:00 13:06 Pulse 114 103 100 98 Resp 22 B/P (MAP) 133/75 (94) 131/73 (92) Pulse Ox 94 94 96 97 09/05/20 09/05/20 09/05/20 09/05/20 13:21 13:36 13:51 13:52 Pulse 93 95 95 107 Resp 22 B/P (MAP) 131/78 (95) 134/79 (97) 123/73 (90) Pulse Ox 97 97 98 97 FiO2 90 09/05/20 09/05/20 09/05/20 09/05/20 14:06 14:22 14:36 14:51 Temp 64.0 Pulse 88 76 75 Resp 25 B/P (MAP) 120/78 (92) 108/70 (83) 113/65 (81) 113/70 (84) Pulse Ox 97 85 93 94 09/05/20 09/05/20 09/05/20 09/05/20 15:00 15:06 15:06 15:15 Temp 99.7 99.7 99.7 99.5 Pulse 73 78 78 61 Resp 25 43 43 23 B/P (MAP) 113/74 (87) 113/74 (87) Pulse Ox 94 89 89 96 09/05/20 09/05/20 09/05/20 09/05/20 15:21 15:21 15:30 15:34 Temp 99.5 99.5 99.3 Pulse 59 59 60 67 Resp 22 23 B/P (MAP) 114/65 (81) 114/65 (81) Pulse Ox 97 97 98 94 09/05/20 09/05/20 09/05/20 09/05/20 15:35 15:36 15:36 15:45 Temp 99.3 99.3 Pulse 67 67 59 59 Resp 22 22 B/P (MAP) 114/70 (85) Pulse Ox 94 94 98 98 FiO2 90 09/05/20 09/05/20 09/05/20 09/05/20 15:51 16:00 16:00 16:06 Temp 99.3 99.3 99.3 Pulse 59 60 62 Resp 22 22 B/P (MAP) 115/70 (85) 120/75 (90) Pulse Ox 99 99 99 O2 Delivery Mechanical Ventilator 09/05/20 09/05/20 09/05/20 09/05/20 16:17 18:09 19:00 19:06 Temp 99.7 99.7 Pulse 99 67 64 65 Resp 32 29 22 22 B/P (MAP) 122/71 (88) Pulse Ox 92 89 93 93 FiO2 90 90 09/05/20 09/05/20 09/05/20 09/05/20 19:15 19:21 19:30 19:36 Temp 99.7 99.7 99.7 99.7 Pulse 66 66 65 64 Resp 22 27 B/P (MAP) 119/71 (87) 120/63 (82) Pulse Ox 92 91 91 89 09/05/20 09/05/20 09/05/20 09/05/20 19:45 19:51 20:00 20:00 Temp 99.5 99.5 99.5 Pulse 63 62 60 Resp 25 B/P (MAP) 119/74 (89) Pulse Ox 87 88 88 O2 Delivery Mechanical Ventilator 09/05/20 09/05/20 09/05/20 09/05/20 20:00 20:06 20:15 20:21 Temp 99.5 99.5 99.5 Pulse 59 57 57 59 Resp 22 B/P (MAP) 124/70 (88) 119/67 (84) Pulse Ox 91 89 89 90 FiO2 90 09/05/20 09/05/20 09/05/20 09/05/20 20:21 20:36 20:51 21:00 Temp 99.5 99.5 99.5 Pulse 59 59 61 63 Resp 22 B/P (MAP) 119/67 (84) 118/69 (85) 115/71 (86) Pulse Ox 90 92 92 92 FiO2 90 09/05/20 09/05/20 09/05/20 09/05/20 21:00 21:00 21:00 21:06 Temp 99.5 Pulse 63 63 66 61 Resp 22 B/P (MAP) 117/70 (86) Pulse Ox 92 92 90 92 O2 Delivery Mechanical Ventilator FiO2 90 09/05/20 09/05/20 09/05/20 09/05/20 21:21 21:36 21:51 22:06 Temp 99.5 99.5 99.3 99.3 Pulse 59 69 66 70 Resp 22 B/P (MAP) 115/64 (81) 108/58 (75) 112/59 (76) 107/60 (76) Pulse Ox 92 90 91 89 09/05/20 09/05/20 09/05/20 09/05/20 22:21 22:36 22:51 23:06 Temp 99.3 99.1 99.1 99.1 Pulse 67 69 66 66 Resp 23 B/P (MAP) 109/57 (74) 113/67 (82) 109/62 (78) 105/60 (75) Pulse Ox 88 86 91 91 09/05/20 09/05/20 09/05/20 09/06/20 23:21 23:36 23:51 00:00 Temp 99.1 99.1 99.1 Pulse 63 60 60 59 Resp 22 B/P (MAP) 105/63 (77) 107/64 (78) 110/63 (79) Pulse Ox 92 92 92 91 FiO2 90 09/06/20 09/06/20 09/06/20 09/06/20 00:00 00:06 00:21 00:21 Temp 99.1 99.1 99.1 Pulse 58 59 59 Resp 23 B/P (MAP) 113/70 (84) 114/69 (84) 114/69 (84) Pulse Ox 92 90 90 O2 Delivery Mechanical Ventilator 09/06/20 09/06/20 09/06/20 09/06/20 00:36 00:51 01:06 01:20 Temp 99.1 99.1 99.1 Pulse 60 58 59 58 Resp 22 B/P (MAP) 115/67 (83) 114/64 (81) 111/65 (80) Pulse Ox 89 90 91 91 FiO2 90 09/06/20 09/06/20 09/06/20 09/06/20 01:21 01:36 01:51 02:06 Temp 99.3 99.3 99.3 99.3 Pulse 62 59 59 59 Resp 22 B/P (MAP) 107/61 (76) 108/57 (74) 108/65 (79) 105/61 (76) Pulse Ox 90 91 91 91 09/06/20 09/06/20 09/06/20 09/06/20 02:21 02:36 02:51 03:00 Temp 99.3 99.3 99.3 Pulse 60 59 59 56 Resp 22 22 10 22 B/P (MAP) 109/59 (76) Pulse Ox 90 89 89 90 09/06/20 09/06/20 09/06/20 09/06/20 03:00 03:06 04:00 04:00 Temp 99.3 Pulse 57 68 60 Resp 22 23 22 Pulse Ox 90 78 90 O2 Delivery Mechanical Ventilator FiO2 90 09/06/20 09/06/20 09/06/20 09/06/20 04:48 07:00 07:30 08:00 Temp 98.4 98.6 98.8 Pulse 56 53 56 72 Resp 22 22 B/P (MAP) 116/66 (83) 115/65 (82) 101/58 (72) Pulse Ox 90 91 91 74 FiO2 90 09/06/20 09/06/20 09/06/20 09/06/20 08:00 08:00 08:14 08:15 Temp 99.0 99.0 Pulse 60 95 84 Resp 22 28 18 B/P (MAP) 126/70 (88) Pulse Ox 90 79 85 O2 Delivery Mechanical Ventilator FiO2 100 09/06/20 09/06/20 09/06/20 09/06/20 08:30 09:00 09:15 09:21 Temp 99.3 100.2 100.4 Pulse 86 91 55 Resp 22 32 22 B/P (MAP) 134/62 (86) 135/62 (86) 144/68 (93) Pulse Ox 83 84 73 91 09/06/20 09/06/20 09/06/20 09/06/20 09:25 09:31 09:32 09:47 Pulse 55 55 55 55 Resp 22 22 22 22 Pulse Ox 91 91 91 91 O2 Delivery Mechanical Ventilator FiO2 90 100 09/06/20 09/06/20 09/06/20 09/06/20 10:00 10:01 10:14 10:15 Pulse 84 78 78 78 Resp 22 21 22 22 B/P (MAP) 93/51 (65) 88/49 (62) 103/54 (70) Pulse Ox 88 88 91 91 09/06/20 09/06/20 09/06/20 09/06/20 10:29 10:30 11:00 11:15 Pulse 80 80 83 80 Resp 23 22 22 22 B/P (MAP) 112/59 (76) 126/68 (87) Pulse Ox 93 93 95 95 09/06/20 09/06/20 09/06/20 09/06/20 11:21 11:30 12:00 12:00 Pulse 87 84 60 Resp 22 22 22 B/P (MAP) 126/67 (86) Pulse Ox 95 96 90 O2 Delivery Mechanical Ventilator FiO2 100 100 09/06/20 09/06/20 09/06/20 09/06/20 12:00 12:30 12:45 12:59 Temp 101.3 101.1 Pulse 87 73 77 77 Resp 22 23 22 22 B/P (MAP) 102/54 (70) 94/53 (67) 97/57 (70) Pulse Ox 97 96 96 96 09/06/20 09/06/20 09/06/20 09/06/20 13:00 13:14 13:15 13:29 Temp 101.1 100.9 100.9 100.8 Pulse 76 70 70 69 Resp 22 22 23 B/P (MAP) 99/59 (72) 99/58 (72) Pulse Ox 97 97 98 98 09/06/20 09/06/20 09/06/20 09/06/20 13:30 14:00 15:41 15:42 Temp 100.8 100.6 Pulse 67 64 61 61 Resp 22 22 22 22 B/P (MAP) 125/66 (85) Pulse Ox 99 99 99 99 FiO2 100 09/06/20 09/06/20 09/06/20 09/06/20 15:44 15:44 16:00 19:00 Temp 99.5 Pulse 61 61 60 53 Resp 22 22 22 22 Pulse Ox 99 99 90 100 O2 Delivery Mechanical Ventilator FiO2 100 100 09/06/20 09/06/20 09/06/20 09/06/20 19:14 19:15 19:30 19:30 Temp 99.3 99.3 Pulse 61 63 69 67 Resp 25 22 22 B/P (MAP) 111/59 (76) Pulse Ox 98 100 99 97 FiO2 100 09/06/20 09/06/20 09/06/20 09/06/20 19:30 19:30 19:44 19:45 Temp 99.3 99.5 99.5 Pulse 69 67 67 69 Resp B/P (MAP) 102/47 (65) 104/59 (74) Pulse Ox 99 97 98 99 09/06/20 09/06/20 09/06/20 09/06/20 19:59 20:00 20:00 20:00 Temp 99.7 99.7 Pulse 86 60 80 Resp 22 22 B/P (MAP) 107/62 (77) Pulse Ox 88 90 95 O2 Delivery Mechanical Ventilator FiO2 100 09/06/20 09/06/20 09/06/20 09/06/20 20:14 20:15 21:59 22:00 Temp 99.7 99.7 99.5 99.5 Pulse 70 71 56 57 Resp 22 B/P (MAP) 114/61 (78) 99/55 (70) Pulse Ox 100 100 100 100 09/06/20 09/06/20 09/06/20 09/06/20 22:14 22:15 22:29 22:30 Temp 99.3 99.3 99.3 99.3 Pulse 56 56 54 53 Resp 22 B/P (MAP) 104/51 (68) 100/57 (71) Pulse Ox 100 100 100 100 09/06/20 09/06/20 09/06/20 09/06/20 22:44 22:45 22:59 23:00 Temp 99.3 99.3 99.3 99.3 Pulse 54 52 52 52 Resp 22 B/P (MAP) 101/56 (71) 104/58 (73) Pulse Ox 100 100 100 100 09/06/20 09/06/20 09/06/20 09/06/20 23:01 23:14 23:15 23:29 Temp 99.3 99.3 99.3 Pulse 55 52 52 54 Resp 18 23 B/P (MAP) 103/56 (72) 117/67 (84) Pulse Ox 100 100 100 100 FiO2 100 09/06/20 09/06/20 09/06/20 09/07/20 23:30 23:45 23:59 00:00 Temp 99.3 99.3 99.3 Pulse 54 61 66 Resp 22 B/P (MAP) 101/54 (70) 110/55 (73) Pulse Ox 100 100 100 O2 Delivery Mechanical Ventilator 09/07/20 09/07/20 09/07/20 09/07/20 00:00 00:00 00:14 00:15 Temp 99.3 99.5 99.5 Pulse 60 65 59 61 Resp B/P (MAP) 104/55 (71) Pulse Ox 90 100 100 100 FiO2 100 09/07/20 09/07/20 09/07/20 09/07/20 01:45 01:58 02:00 02:09 Temp 99.5 99.5 Pulse 79 79 56 Resp B/P (MAP) 139/73 (95) Pulse Ox 100 90 100 FiO2 100 09/07/20 09/07/20 09/07/20 09/07/20 02:13 02:15 02:28 02:30 Temp 99.5 99.5 99.5 99.5 Pulse 83 82 73 70 Resp B/P (MAP) 131/64 (86) 123/64 (83) Pulse Ox 92 92 94 94 09/07/20 09/07/20 09/07/20 09/07/20 02:43 02:45 02:53 02:58 Temp 99.5 99.5 99.7 Pulse 73 70 69 Resp B/P (MAP) 114/68 (83) 116/65 (82) Pulse Ox 95 95 93 94 09/07/20 09/07/20 09/07/20 09/07/20 03:00 03:14 03:15 03:29 Temp 99.7 99.7 99.7 99.7 Pulse 70 64 66 75 Resp Pulse Ox 94 94 94 92 09/07/20 09/07/20 09/07/20 09/07/20 03:30 03:43 03:45 03:58 Temp 99.7 99.7 99.7 99.7 Pulse 74 74 74 83 Resp 22 B/P (MAP) 114/63 (80) 100/61 (74) Pulse Ox 93 93 92 96 09/07/20 09/07/20 09/07/20 09/07/20 04:00 04:00 04:00 05:04 Temp 99.7 Pulse 76 60 71 Resp 22 22 22 Pulse Ox 96 90 92 O2 Delivery Mechanical Ventilator FiO2 100 09/07/20 09/07/20 09/07/20 09/07/20 05:04 05:04 07:00 07:13 Temp 100.0 100.0 Pulse 73 71 63 62 Resp B/P (MAP) 100/59 (73) Pulse Ox 97 92 98 98 FiO2 100 09/07/20 09/07/20 09/07/20 09/07/20 07:15 07:28 07:28 07:43 Temp 100.0 100.0 100.0 100.0 Pulse 63 61 61 61 Resp 23 B/P (MAP) 107/67 (80) 107/67 (80) 101/62 (75) Pulse Ox 98 97 97 99 09/07/20 09/07/20 09/07/20 09/07/20 07:58 08:00 08:13 08:28 Temp 100.2 100.2 100.2 Pulse 67 24 89 102 Resp B/P (MAP) 102/57 (72) 109/63 (78) 132/69 (90) Pulse Ox 98 92 97 79 FiO2 100 09/07/20 09/07/20 09/07/20 09/07/20 08:43 08:45 08:45 08:45 Pulse 91 86 86 86 Resp B/P (MAP) 117/63 (81) Pulse Ox 91 100 97 97 FiO2 100 09/07/20 09/07/20 09/07/20 09/07/20 08:45 08:58 09:13 09:28 Pulse 86 87 85 85 Resp 22 B/P (MAP) 108/64 (79) 110/58 (75) 97/54 (68) Pulse Ox 97 94 97 97 O2 Delivery Mechanical Ventilator FiO2 100 09/07/20 09:44 O2 Delivery Mechanical Ventilator Intake and Output 09/07/20 06:00 Intake Total 1333 ml Output Total 1350 ml Balance -17 ml VTE VTE Risk Total Score: 2 VTE Risk Score VTE Risk: Score 0-1 = Low Risk (Aggressive mobilization; early ambulation; no VTE prophylaxis required) Score 2: Moderate Risk (Intermittent/Pneumatic Compression Device OR Lovenox/Heparin/Coumadin) Score 3-4: High Risk (Intermittent/Pneumatic Compression Device AND Lovenox/Heparin/Coumadin) Score > or =5: Highest Risk (Intermittent/Pneumatic Compression Device AND Lovenox/Heparin/Coumadin) VTE VTE Present on Admission: No Currently receiving anticoagul: Yes VTE Risk Total Score: 2 Assessment/Plan Assessment/Plan Assessment/Plan 54 y.o. male with COVID ARF; intubated, sedated, intermittently paralyzed CV: HD stable HR 61 BP 107/67 Pulm: RR 22 97% on AC 22 500 100% 14 with ABG=7.41/43/58/27 Agree with proning due to persistent hypoxia Continue Ventolin GI: Tolerating TFs@40cc/hr T.Prot=5.7 Albumin=1.6 Tzh=230 NL LFTs Received Remdesivir Pepcid for stress ulcer prophylaxis : Adequate UO~0.6cc/kg/hr BUN/Cr=20/0.6 Lytes: NL ID: Afebrile WBC increasing to 16.9 Will send urine culture Blood cultures neg Change Cefepime to Zosyn for broader coverage Continue Vanco CRP increased=11.4 Procalcitonin decreased=0.05 Trend markers Continue Vit C, Zinc Heme: H/H=15/43.7 Utzikivbm=374 Continue anticoagulation with Lovenox ASA for antiplatelet therapy D Dimer increasing Neuro: GCS 3T on Precedex, Fentanyl and Diprivan and intermittent Vec for paralytic I spent 60 mins telemedicine critical care time I discussed patient with [employer] and resp therapy who assisted with video eval I saw this patient and completed full visual exam using audio-visual HIPAA compliant technology Patient History: Unknown 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 Plan Anticoagulation Stress ulcer prophylaxis Vent support, proning, Follow ABG Check urine culture Zosyn for broader antibiotic coverage given increasing WBC RONALD MACARIO MD Sep 07, 2020 11:11
--- NOTE | 2020-09-07 11:11 | NUR ---
1000 AM - Pulmonary rounds performed with Dr Hart and respiratory therapist. No new changes orders given at this time. 1100 AM- Pt proned as ordered, drips adjusted to maintain pt's comfort and improve oxygen saturation. Will continue to monitor.
[2020-09-07] MEDS: PRECEDEX IV SCH (11:26)
[2020-09-07] MEDS: NS IV SCH (11:26)
[2020-09-07] MEDS ORDERED: ZOSYN 3.375 GM 3.375 GM in NS 100ML 100 ML IV SCH (11:30)
[2020-09-07] MEDS: ZOSYN 3.375 GM 3.375 GM in NS 100ML 100 ML IV SCH ×2 (12:24→18:01)
--- NOTE | 2020-09-07 13:46 | NUR ---
Pt in proned position, appears to be tolerating well. Pt's oxygen saturation currently 98%, respiratory rate 22. Vascular access nurse rounding. Pt's midline remains patent, however firmness noted to left arm. Pt currently proned till AM, vascular RN plans on returning in AM to place additional vascular access. Will continue to monitor.
--- NOTE | 2020-09-07 15:24 | NUR ---
Pt called and updated on pt's condition and plan of care. Pictures of patient sent to 's phone as requested. Charged nurse called pt's , facetime performed, expressed gratitude.
[2020-09-07] MEDS: SUBLIMAZE 1,000 MCG in NS 100ML 80 ML IV SCH (15:43)
--- NOTE | 2020-09-07 17:47 | PRM.PN ---
Progress Note Subjective Date: Sep 07, 2020 Physician Notes: He was stable last 24 hrs, no events over night. still sedated. ROS: unobtainable. Objective Vital Sign - Last 24 Hours 09/06/20 09/06/20 09/06/20 09/06/20 19:00 19:14 19:15 19:30 Temp 99.5 99.3 99.3 Pulse 53 61 63 69 Resp B/P (MAP) 111/59 (76) Pulse Ox 100 98 100 99 09/06/20 09/06/20 09/06/20 09/06/20 19:30 19:30 19:30 19:44 Temp 99.3 99.5 Pulse 67 69 67 67 Resp B/P (MAP) 102/47 (65) 104/59 (74) Pulse Ox 97 99 97 98 FiO2 100 09/06/20 09/06/20 09/06/20 09/06/20 19:45 19:59 20:00 20:00 Temp 99.5 99.7 99.7 Pulse 69 86 60 80 Resp B/P (MAP) 107/62 (77) Pulse Ox 99 88 90 95 FiO2 100 09/06/20 09/06/20 09/06/20 09/06/20 20:00 20:14 20:15 21:59 Temp 99.7 99.7 99.5 Pulse 70 71 56 Resp 22 B/P (MAP) 114/61 (78) 99/55 (70) Pulse Ox 100 100 100 O2 Delivery Mechanical Ventilator 09/06/20 09/06/20 09/06/20 09/06/20 22:00 22:14 22:15 22:29 Temp 99.5 99.3 99.3 99.3 Pulse 57 56 56 54 Resp 18 B/P (MAP) 104/51 (68) 100/57 (71) Pulse Ox 100 100 100 100 09/06/20 09/06/20 09/06/20 09/06/20 22:30 22:44 22:45 22:59 Temp 99.3 99.3 99.3 99.3 Pulse 53 54 52 52 Resp 20 B/P (MAP) 101/56 (71) 104/58 (73) Pulse Ox 100 100 100 100 09/06/20 09/06/20 09/06/20 09/06/20 23:00 23:01 23:14 23:15 Temp 99.3 99.3 99.3 Pulse 52 55 52 52 Resp 18 B/P (MAP) 103/56 (72) Pulse Ox 100 100 100 100 FiO2 100 09/06/20 09/06/20 09/06/20 09/06/20 23:29 23:30 23:45 23:59 Temp 99.3 99.3 99.3 99.3 Pulse 54 54 61 66 Resp B/P (MAP) 117/67 (84) 101/54 (70) 110/55 (73) Pulse Ox 100 100 100 100 09/07/20 09/07/20 09/07/20 09/07/20 00:00 00:00 00:00 00:14 Temp 99.3 99.5 Pulse 60 65 59 Resp B/P (MAP) 104/55 (71) Pulse Ox 90 100 100 O2 Delivery Mechanical Ventilator FiO2 100 09/07/20 09/07/20 09/07/20 09/07/20 00:15 01:45 01:58 02:00 Temp 99.5 99.5 99.5 Pulse 61 79 79 Resp B/P (MAP) 139/73 (95) Pulse Ox 100 100 90 09/07/20 09/07/20 09/07/20 09/07/20 02:09 02:13 02:15 02:28 Temp 99.5 99.5 99.5 Pulse 56 83 82 73 Resp B/P (MAP) 131/64 (86) 123/64 (83) Pulse Ox 100 92 92 94 FiO2 100 09/07/20 09/07/20 09/07/20 09/07/20 02:30 02:43 02:45 02:53 Temp 99.5 99.5 99.5 Pulse 70 73 70 Resp B/P (MAP) 114/68 (83) Pulse Ox 94 95 95 93 09/07/20 09/07/20 09/07/20 09/07/20 02:58 03:00 03:14 03:15 Temp 99.7 99.7 99.7 99.7 Pulse 69 70 64 66 Resp 25 25 22 30 B/P (MAP) 116/65 (82) Pulse Ox 94 94 94 94 09/07/20 09/07/20 09/07/20 09/07/20 03:29 03:30 03:43 03:45 Temp 99.7 99.7 99.7 99.7 Pulse 75 74 74 74 Resp 35 24 B/P (MAP) 114/63 (80) Pulse Ox 92 93 93 92 09/07/20 09/07/20 09/07/20 09/07/20 03:58 04:00 04:00 04:00 Temp 99.7 99.7 Pulse 83 76 60 Resp 22 B/P (MAP) 100/61 (74) Pulse Ox 96 96 90 O2 Delivery Mechanical Ventilator FiO2 100 09/07/20 09/07/20 09/07/20 09/07/20 05:04 05:04 05:04 07:00 Temp 100.0 Pulse 71 73 71 63 Resp 22 Pulse Ox 92 97 92 98 FiO2 100 09/07/20 09/07/20 09/07/20 09/07/20 07:13 07:15 07:28 07:28 Temp 100.0 100.0 100.0 100.0 Pulse 62 63 61 61 Resp 22 B/P (MAP) 100/59 (73) 107/67 (80) 107/67 (80) Pulse Ox 98 98 97 97 09/07/20 09/07/20 09/07/20 09/07/20 07:43 07:58 08:00 08:13 Temp 100.0 100.2 100.2 Pulse 61 67 24 89 Resp 20 B/P (MAP) 101/62 (75) 102/57 (72) 109/63 (78) Pulse Ox 99 98 92 97 FiO2 100 09/07/20 09/07/20 09/07/20 09/07/20 08:28 08:43 08:45 08:45 Temp 100.2 Pulse 102 91 86 86 Resp 29 B/P (MAP) 132/69 (90) 117/63 (81) Pulse Ox 79 91 100 97 FiO2 100 09/07/20 09/07/20 09/07/20 09/07/20 08:45 08:45 08:58 09:13 Pulse 86 86 87 85 Resp 29 29 32 22 B/P (MAP) 108/64 (79) 110/58 (75) Pulse Ox 97 97 94 97 O2 Delivery Mechanical Ventilator FiO2 100 09/07/20 09/07/20 09/07/20 09/07/20 09:28 09:30 09:43 09:44 Pulse 85 81 85 Resp B/P (MAP) 97/54 (68) 105/54 (71) Pulse Ox 97 97 97 O2 Delivery Mechanical Ventilator 09/07/20 09/07/20 09/07/20 09/07/20 09:45 09:58 10:00 10:13 Pulse 86 86 89 91 Resp 24 B/P (MAP) 101/49 (66) 115/53 (73) Pulse Ox 97 98 97 98 09/07/20 09/07/20 09/07/20 09/07/20 10:15 10:29 10:30 10:35 Pulse 92 86 85 83 Resp B/P (MAP) 99/45 (63) Pulse Ox 98 93 93 93 09/07/20 09/07/20 09/07/20 09/07/20 10:43 10:45 10:59 11:00 Temp 100.4 Pulse 79 79 71 Resp B/P (MAP) 92/40 (57) 121/53 (75) Pulse Ox 92 93 90 90 09/07/20 09/07/20 09/07/20 09/07/20 11:13 11:15 11:28 11:43 Temp 100.4 100.4 100.4 100.4 Pulse 77 78 76 65 Resp 22 B/P (MAP) 108/60 (76) 107/56 (73) 104/59 (74) Pulse Ox 92 92 92 94 09/07/20 09/07/20 09/07/20 09/07/20 11:45 11:58 12:00 12:10 Temp 100.4 100.4 100.4 Pulse 66 62 61 61 Resp 22 B/P (MAP) 105/59 (74) Pulse Ox 94 95 96 96 FiO2 100 09/07/20 09/07/20 09/07/20 09/07/20 12:12 12:13 12:15 12:28 Temp 100.4 100.4 100.2 Pulse 60 59 61 Resp 23 B/P (MAP) 104/62 (76) 107/62 (77) Pulse Ox 97 97 97 O2 Delivery Mechanical Ventilator 09/07/20 09/07/20 09/07/20 09/07/20 12:30 12:43 12:45 12:58 Temp 100.2 100.2 100.2 100.2 Pulse 61 58 58 56 Resp B/P (MAP) 108/59 (75) 107/64 (78) Pulse Ox 97 98 98 99 09/07/20 09/07/20 09/07/20 09/07/20 13:00 13:13 13:15 13:24 Temp 100.2 100.0 100.0 Pulse 56 57 56 66 Resp B/P (MAP) 103/62 (76) Pulse Ox 99 98 98 93 FiO2 100 09/07/20 09/07/20 09/07/20 09/07/20 13:28 13:30 13:43 13:45 Temp 100.0 100.0 100.0 100.0 Pulse 58 57 56 58 Resp 22 B/P (MAP) 104/63 (77) 107/62 (77) Pulse Ox 97 98 98 98 09/07/20 09/07/20 09/07/20 09/07/20 13:58 14:00 14:13 14:15 Temp 99.9 99.9 99.9 99.9 Pulse 56 56 55 55 Resp B/P (MAP) 107/62 (77) 104/64 (77) Pulse Ox 98 98 98 97 09/07/20 09/07/20 09/07/20 09/07/20 14:28 14:30 14:45 14:59 Temp 99.9 99.9 99.7 99.7 Pulse 55 55 55 54 Resp 22 B/P (MAP) 104/61 (75) 102/64 (77) Pulse Ox 97 97 97 97 09/07/20 09/07/20 09/07/20 09/07/20 15:00 15:15 15:29 15:30 Temp 99.7 99.7 99.7 99.7 Pulse 55 55 54 54 Resp 22 B/P (MAP) 108/64 (79) Pulse Ox 97 97 98 98 09/07/20 09/07/20 09/07/20 09/07/20 15:45 15:59 16:00 16:15 Temp 99.5 99.5 99.5 99.5 Pulse 54 53 55 53 Resp 22 22 B/P (MAP) 104/62 (76) Pulse Ox 97 97 97 97 09/07/20 09/07/20 09/07/20 09/07/20 16:19 16:19 16:19 16:29 Temp 99.3 Pulse 55 55 55 52 Resp 23 23 22 22 B/P (MAP) 100/58 (72) Pulse Ox 97 97 97 96 FiO2 100 09/07/20 09/07/20 16:30 16:40 Temp 99.3 Pulse 53 55 Resp 22 22 Pulse Ox 97 97 FiO2 100 Intake and Output 09/07/20 07:00 Intake Total 1333 ml Output Total 1350 ml Balance -17 ml Ventilator Mode:AC Vent rate:22 Tv:450 FiO2:100% Physical exam: General: not in distress. Neuro:he is awake. responds to conversation with facial expression. Heart: Normal S1, Normal S2, No murmurs, Other (slightly tachycardic this AM) Abdomen: Normal bowel sounds, Soft Lungs: Other (breath sounds equal and symmetric. Lungs are mostly clear, but there are increasing scattered rales. ) Skin: No rashes, No breakdown, No significant lesion, Other (There is signicant subq emphysema overlying his chest and neck. ) Laboratory Tests Test 09/06/20 20:45 09/07/20 00:00 09/07/20 03:57 Vancomycin Level Trough 3.2 ug/mL Blood Gas Sample Site A LINE Blood Gas pH 7.413 Blood Gas PCO2 43.7 mmHg Blood Gas PO2 58.7 mmHg Blood Gas HCO3 27.3 mmol/L Blood Gas Base Excess 2.2 mmol/L Vince Test N/A Arterial Blood Oxygen Saturation 90.9 % Deoxyhemoglobin 9.0 % Carboxyhemoglobin 0.9 % Methemoglobin 0.4 % Total Hemoglobin 16.8 % Total Oxygen Concentration 21.1 % Blood Gas Temperature 37 Oxygen Delivery Method (LAB) VENT Blood Gas Vent Mode AC Blood Gas Vent Rate 22 FiO2 100 % Blood Gas Tidal Volume 450 ML Blood Gas PEEP 12 CMH2O Total Carbon Dioxide 28.6 mmol/L White Blood Count 16.9 10^3/uL Red Blood Count 4.74 10^6/uL Hemoglobin 15.0 g/dL Hematocrit 43.7 % Mean Corpuscular Volume 92.2 fL Mean Corpuscular Hemoglobin 31.6 pg Mean Corpuscular Hemoglobin Concent 34.3 g/dL Red Cell Distribution Width 12.3 % Platelet Count 188 10^3/uL Mean Platelet Volume 10.3 fL Neutrophils (%) (Auto) 92.8 % Lymphocytes (%) (Auto) 3.0 % Monocytes (%) (Auto) 2.3 % Neutrophils # (Auto) 15.7 10^3/uL Lymphocytes # (Auto) 0.51 10^3/uL1 Monocytes # (Auto) 0.4 10^3/uL Absolute Immature Granulocyte (auto 0.30 10^3 u/L Absolute Eosinophils (auto) 0.0 10^3/uL Immature Granulocytes % 1.80 % Eosinophils % 0.0 % Basophils % 0.1 % Basophils # 0.0 10^3/uL Sodium Level 141 mmol/L Potassium Level 4.2 mmol/L Chloride Level 106.0 mmol/L Carbon Dioxide Level 29.4 mmol/L Anion Gap 9.8 Blood Urea Nitrogen 20 mg/dL Creatinine 0.60 mg/dL Estimated GFR () 169.3 Est GFR (CKD-EPI)(Non-Afr Malaysian) 139.9 BUN/Creatinine Ratio 33.0 Glucose Level 119 mg/dL Calcium Level 8.2 mg/dL Total Bilirubin 0.6 mg/dL Aspartate Amino Transf (AST/SGOT) 32 U/L Alanine Aminotransferase (ALT/SGPT) 36 U/L Alkaline Phosphatase 69 U/L Total Protein 5.7 g/dL Albumin 1.6 g/dL Globulin 4.1 Albumin/Globulin Ratio 0.390 Current Medications Medications (Trade) Dose Ordered Sig/Estuardo Route PRN Reason Start Time Stop Time Status Last Admin Dose Admin Enoxaparin Sodium (Lovenox) 40 mg DAILY SQ 08/31/20 09:00 09/04/20 11:47 DC 09/04/20 09:00 Remdesivir 200 mg/ Sodium Chloride 140 ml @ 120.69 mls/ hr OT IV 08/31/20 09:30 08/31/20 10:40 DC 08/31/20 09:38 Lorazepam (Ativan) 1 mg Q3HR PRN IV ANXIETY 08/31/20 05:00 09/01/20 10:41 DC 09/01/20 06:00 Azithromycin 500 mg/Sodium Chloride 250 ml @ 175 mls/hr Q24HRS IV 08/31/20 05:00 09/04/20 08:00 DC 09/04/20 04:12 Ceftriaxone Sodium 1000 mg/ Sodium Chloride 100 ml @ 100 mls/hr Q24HRS IV 08/31/20 05:00 09/05/20 09:27 DC 09/05/20 04:49 Lorazepam (Ativan) 1 mg STAT STAT IV 08/31/20 05:16 08/31/20 08:31 DC 08/31/20 05:34 Sodium Chloride 100 ml @ ud STK-MED ONCE IV 08/31/20 05:18 08/31/20 05:21 DC Ceftriaxone Sodium (Rocephin) 1,000 mg STK-MED ONCE .ROUTE 08/31/20 05:19 08/31/20 05:21 DC Sodium Chloride 500 ml @ ud STK-MED ONCE IV 08/31/20 05:37 08/31/20 05:40 DC Morphine Sulfate (Morphine Sulfate) 0.5 mg STAT ONCE IV 08/31/20 06:15 08/31/20 08:44 DC 08/31/20 06:15 Albuterol/ Ipratropium (Duo 0.5-3(2.5) Mg/3 ml) 3 ml RTQ6H 08/31/20 08:00 09/30/20 07:59 09/07/20 15:34 Albuterol Sulfate (Ventolin) 2.5 mg RTQ4 PRN IH WHEEZING 08/31/20 08:00 09/30/20 07:59 09/05/20 09:00 Furosemide (Lasix) 40 mg STAT STAT IV 08/31/20 07:55 08/31/20 08:44 DC 08/31/20 08:08 Morphine Sulfate (Morphine Sulfate) 0.5 mg OT STAT IV 08/31/20 07:56 08/31/20 08:44 DC 08/31/20 08:25 Lorazepam (Ativan) 0.5 mg STAT STAT IV 08/31/20 07:56 08/31/20 08:43 DC 08/31/20 08:23 Sodium Chloride 250 ml @ ud STK-MED ONCE IV 08/31/20 08:03 08/31/20 08:05 DC Sodium Chloride 100 ml @ ud STK-MED ONCE IV 08/31/20 09:34 08/31/20 09:36 DC Remdesivir 100 mg/ Sodium Chloride 120 ml @ 111.111 mls/hr Q24HRS IV 09/01/20 09:00 09/05/20 09:23 DC 09/05/20 08:39 Aspirin (Aspirin) 81 mg DAILY PO 09/01/20 09:00 10/01/20 08:59 09/07/20 08:05 Famotidine (Pepcid) 20 mg BID PO 08/31/20 21:00 09/01/20 22:57 DC 09/01/20 21:00 Ascorbic Acid (Vitamin C) 500 mg BID PO 08/31/20 21:00 09/30/20 20:59 09/07/20 08:06 Zinc Sulfate (Zinc Sulfate) 220 mg DAILY PO 08/31/20 21:00 09/30/20 20:59 09/07/20 08:06 Guaifenesin (Robitussin Dm) 5 ml Q4HR PRN PO COUGH 09/01/20 01:30 09/01/20 10:41 DC Morphine Sulfate (Morphine Sulfate) 2 mg STK-MED ONCE .ROUTE 09/01/20 03:32 09/01/20 03:34 DC Morphine Sulfate (Morphine Sulfate) 0.5 mg STAT STAT IV 09/01/20 03:33 09/01/20 03:35 DC 09/01/20 03:33 Sodium Chloride 100 ml @ ud STK-MED ONCE IV 09/01/20 05:28 09/01/20 05:30 DC Sodium Chloride 250 ml @ ud STK-MED ONCE IV 09/01/20 05:29 09/01/20 05:30 DC Ceftriaxone Sodium (Rocephin) 1,000 mg STK-MED ONCE .ROUTE 09/01/20 05:29 09/01/20 05:31 DC Benzonatate (Tessalon Perle) 100 mg Q2 PRN PO COUGH 09/01/20 06:00 09/01/20 05:50 DC Dexmedetomidine HCl 200 mcg/ Sodium Chloride 50 ml @ 0 mls/hr IV 09/01/20 06:00 09/01/20 08:24 DC Sodium Chloride 250 ml @ ud STK-MED ONCE IV 09/01/20 05:37 09/01/20 05:39 DC Benzonatate (Tessalon Perle) 200 mg TID PRN PO COUGH 09/01/20 06:00 09/01/20 10:41 DC 09/01/20 06:00 Acetaminophen/ Hydrocodone Bitart (Anchor 5mg) 1 ea TID PRN PO PAIN 4 - 6 09/01/20 06:00 09/01/20 10:41 DC Dexmedetomidine HCl 400 mcg/ Sodium Chloride 100 ml @ 0 mls/hr IV 09/01/20 08:30 09/04/20 19:42 DC 09/04/20 08:49 Sodium Chloride 1,000 ml @ ud STK-MED ONCE .ROUTE 09/01/20 10:16 09/01/20 10:18 DC Sodium Chloride 1,000 ml @ ud STK-MED ONCE .ROUTE 09/01/20 10:18 09/01/20 10:20 DC Propofol 100 ml @ ud STK-MED ONCE IV 09/01/20 10:28 09/01/20 10:30 DC Vecuronium Volcano (Norcuron) 10 mg STK-MED ONCE .ROUTE 09/01/20 10:29 09/01/20 10:31 DC Propofol (Diprivan) Diprivan IV infusion tritra... TITRATE PRN IV sedation 09/01/20 10:30 10/01/20 10:29 09/07/20 16:25 Propofol (Diprivan) STAT STAT IV 09/01/20 10:29 09/01/20 10:38 DC 09/01/20 11:50 Vecuronium Volcano (Norcuron) 5 mg Q1HR IV 09/01/20 11:00 09/04/20 11:10 DC 09/04/20 06:28 Vecuronium Volcano (Norcuron) 2 mg Q30MIN PRN IV paralysis 09/01/20 11:00 10/01/20 10:59 09/04/20 10:00 Fentanyl Citrate 1000 mcg/Sodium Chloride 100 ml @ 0 mls/hr IV 09/01/20 11:30 10/01/20 11:29 09/07/20 15:43 Sterile Water (Water) 1,000 ml STK-MED ONCE .ROUTE 09/01/20 13:55 09/01/20 13:57 DC Propofol (Diprivan) 200 mg STK-MED ONCE IV 09/01/20 12:00 09/01/20 21:42 DC Rocuronium Volcano (Zemuron) 100 mg STK-MED ONCE IV 09/01/20 12:00 09/01/20 21:42 DC Succinylcholine Chloride (Quelicin) 100 mg STK-MED ONCE IV 09/01/20 12:00 09/01/20 21:42 DC Famotidine (Pepcid) 20 mg BID IV 09/02/20 09:00 10/02/20 08:59 09/07/20 08:06 Famotidine (Pepcid) 20 mg STK-MED ONCE IV 09/02/20 07:57 09/02/20 07:59 DC Albuterol/ Ipratropium (Duoneb 0.5 Mg-3 Mg/3 ml Soln) 3 ml STK-MED ONCE IH 09/02/20 08:37 09/02/20 08:39 DC Sterile Water (Water) 1,000 ml STK-MED ONCE .ROUTE 09/03/20 14:28 09/03/20 14:30 DC Sodium Chloride 500 ml @ ud STK-MED ONCE IV 09/04/20 09:35 09/04/20 09:37 DC Vecuronium Volcano (Norcuron) 15 mg Q1HR PRN IV vent dsynchrony or hypoxia 09/04/20 11:30 10/04/20 11:29 09/07/20 17:21 Enoxaparin Sodium (Lovenox) 40 mg BID SQ 09/04/20 21:00 10/04/20 20:59 09/07/20 08:07 Sterile Water (Water) 1,000 ml STK-MED ONCE .ROUTE 09/04/20 17:03 09/04/20 17:05 DC Dexmedetomidine HCl 800 mcg/ Sodium Chloride 200 ml @ 0 mls/hr IV 09/04/20 20:00 10/04/20 19:59 09/07/20 11:26 Vancomycin HCl 1.5 gm/Sodium Chloride 300 ml @ 175 mls/hr Q12H IV 09/05/20 11:00 10/05/20 10:59 09/07/20 10:46 Cefepime HCl 2 gm/ Sodium Chloride 100 ml @ 100 mls/hr Q8H IV 09/05/20 09:30 09/07/20 11:14 DC 09/07/20 09:27 Vecuronium Volcano (Norcuron) 10 mg STK-MED ONCE .ROUTE 09/05/20 12:00 09/05/20 16:06 DC Sodium Chloride 500 ml @ ud STK-MED ONCE IV 09/05/20 21:36 09/05/20 21:38 DC Piperacillin Sod/ Tazobactam Sod 3.375 gm/Sodium Chloride 100 ml @ 100 mls/hr Q6H IV 09/07/20 11:30 09/07/20 12:27 DC Piperacillin Sod/ Tazobactam Sod 3.375 gm/Sodium Chloride 100 ml @ 100 mls/hr Q6H IV 09/07/20 13:00 10/07/20 12:59 09/07/20 12:24 Assessment & Plan: Assessment Hospital course: Pt is a 54 y/o M with PMHx of HTN, HLD, obesity, and anxiety. He was admitted the morning of 08/31 as a transfer from OSH for acute hypoxemic respiratory failure and COVID-19. He was started on full spectrum treatment for COVID-19 with IV Decadron, Azithromycin, Remdesivir, CCP, Zinc, and Vitamin C. On arrival to this facility, he was in mild to moderate respiratory distress and required continuous CPAP to maintain Oxygenation. He remained relatively stable throughout 08/31, but started becoming more fatigued the evening of 08/31, and was moved to the ICU for closer monitoring. In the ICU, he was continued on CPAP in an effort to avoid intubation. However, he continued to have difficulty with NIPPV and was frequently dyssynchronous, causing further desaturations. He was also noted to have Sub q emphysema in his chest and neck, which was concerning for barotrauma due to continued dyssynchrony. The morning of 09/01, he was noted to be in worsened respiratory distress and there was concern for impending respiratory collapse due to fatigue. The patient and I discussed intubation and he agreed to be electively intubated before he decompensated completely. The on- call [employer] was called and the patient was subsequently intubated without complication. He was started on Propofol and fentanyl drips and paralyzed with IV vecuronium pushes. He has tolerated mechanical ventilation rather well and his O2 sats and PaO2 have improved markedly. Prior to intubation his ABG showed normal pH and a PaO2 in the 50's. His PaO2 improved to 70's within the hour, and was 150's on his most recent ABG the evening of 09/01. Of note, I did discuss the possibility of prolonged intubation, need for tracheostomy, and whether this is something that he would want done. He agreed that tracheostomy and long-term vent weaning is something that he would be ok with if it came down to it. Since intubation, he has improved markedly. He was continued on treatment for COVID with Remdesivir, steroids, and azithromycin and has completed his courses of each of these. His inflammtory markers have been downtrending with the exception of D-dimer which is uptrending slowly. His WBC was previously trending down, but increased sharply from 15 to 19 today. He has also been fevering so his Abx were broadened out to Vanc/Cefepime this AM and repeat Blood and sputum cultures were obtained. 09/06/2020: he remained stable. still have low grade fever. blood cultures are negative. 09/07: o2 level improved with prone position. still require high vent settings. Assessments: Neuro:sedated with sedatives holiday. CV:HD stable. Hx HTN but off lisinopril due to soft BP. Pulmo: Acute respiratory failure on mechanical ventilation: managed by ICU telemedicine.Keep Pplat < 30 to limit risk of pneumothorax and barotrauma. COVID-19 pneumonia: possibly superimposed with HAP, still running fever. Procalcitonin is normal. covid markers still high. - Pt has completed his course of Remdesivir. - s/p 1u CCP - c/w Vanc day 3. - d/c/Cefepime and start Zosyn. - continue Propofol/Fentanyl for sedation/analgesia; precedex is available for backup sedation if needed - continue IV Vecuronium 15mg q1h + IV Vec 2mg q30min PRN - trend COVID markers q48h - CXR q48h and PRN Pneumomediastinum without pneumothorax: stable. GI:TF 40cc/hr. : no issues endo: Bg normal. he is off steroids. heme:WBC trended down. FEN:corrected calcium is normal. Sedation: propofol/precedex Analgesia: Fent VTE ppx: Lovenox GI ppx: Pepcid Diet: TF per dietary recs CODE: [employer] member Spent: > 40 minutes between evaluation, coordination of care, and documentation I spoke to his for updates. prognosis is guarded. Objective Review IO, Exams,& Results Problems Acute/Active Problems: (1) Dyspnea (2) Hypoxia (3) Pneumonia (4) Pneumonia due to COVID-19 virus Vital Signs Date Time Temp Pulse Resp B/P (MAP) Pulse Ox O2 Delivery O2 Flow Rate FiO2 09/07/20 16:40 55 22 97 100 09/07/20 16:30 99.3 09/07/20 16:29 100/58 (72) 09/07/20 12:12 Mechanical Ventilator 08/31/20 04:56 15.00 Intake and Output 09/07/20 07:00 Intake Total 1333 ml Output Total 1350 ml Balance -17 ml IV Total 1333 ml Output Urine Total 1350 ml Laboratory Tests Test 09/06/20 04:10 09/06/20 07:55 09/06/20 20:45 09/07/20 00:00 White Blood Count 13.9 10^3/uL Red Blood Count 4.61 10^6/uL Hemoglobin 14.7 g/dL Hematocrit 42.9 % Mean Corpuscular Volume 93.1 fL Mean Corpuscular Hemoglobin 31.9 pg Mean Corpuscular Hemoglobin Concent 34.3 g/dL Red Cell Distribution Width 12.4 % Platelet Count 159 10^3/uL Mean Platelet Volume 9.8 fL Neutrophils (%) (Auto) 89.3 % Lymphocytes (%) (Auto) 6.1 % Monocytes (%) (Auto) 2.7 % Neutrophils # (Auto) 12.4 10^3/uL Lymphocytes # (Auto) 0.84 10^3/uL1 Monocytes # (Auto) 0.4 10^3/uL Absolute Immature Granulocyte (auto 0.20 10^3 u/L Absolute Eosinophils (auto) 0.1 10^3/uL Immature Granulocytes % 1.40 % Eosinophils % 0.4 % Basophils % 0.1 % Basophils # 0.0 10^3/uL D-Dimer 3.65 mg/L Sodium Level 140 mmol/L Potassium Level 4.3 mmol/L Chloride Level 106.0 mmol/L Carbon Dioxide Level 30.5 mmol/L Anion Gap 7.8 Blood Urea Nitrogen 17 mg/dL Creatinine 0.62 mg/dL Estimated GFR () 163.0 Est GFR (CKD-EPI)(Non-Afr Malaysian) 134.7 BUN/Creatinine Ratio 27.0 Glucose Level 128 mg/dL Calcium Level 7.9 mg/dL Phosphorus Level 2.8 mg/dL Magnesium Level 2.2 mg/dL Ferritin 1712 ng/mL Total Bilirubin 0.4 mg/dL Aspartate Amino Transf (AST/SGOT) 25 U/L Alanine Aminotransferase (ALT/SGPT) 37 U/L Alkaline Phosphatase 65 U/L Lactate Dehydrogenase 407 U/L Total Creatine Kinase 40 U/L C-Reactive Protein 11.49 mg/dL Total Protein 5.4 g/dL Albumin 1.7 g/dL Globulin 3.7 Albumin/Globulin Ratio 0.459 Procalcitonin 0.05 ng/mL Blood Gas Sample Site PILY A LINE Blood Gas pH 7.404 7.413 Blood Gas PCO2 46.2 mmHg 43.7 mmHg Blood Gas PO2 42.9 mmHg 58.7 mmHg Blood Gas HCO3 28.2 mmol/L 27.3 mmol/L Blood Gas Base Excess 2.8 mmol/L 2.2 mmol/L Vince Test N/A N/A Arterial Blood Oxygen Saturation 78.0 % 90.9 % Deoxyhemoglobin 21.7 % 9.0 % Carboxyhemoglobin 0.9 % 0.9 % Methemoglobin 0.4 % 0.4 % Total Hemoglobin 16.1 % 16.8 % Total Oxygen Concentration 17.4 % 21.1 % Blood Gas Temperature 37.0 37 Oxygen Delivery Method (LAB) VENT VENT Blood Gas Vent Mode AC AC Blood Gas Vent Rate 20 22 FiO2 100 % 100 % Blood Gas Tidal Volume 500 ML 450 ML Blood Gas PEEP 12 CMH2O 12 CMH2O Total Carbon Dioxide 29.7 mmol/L 28.6 mmol/L Vancomycin Level Trough 3.2 ug/mL Test 09/07/20 03:57 White Blood Count 16.9 10^3/uL Red Blood Count 4.74 10^6/uL Hemoglobin 15.0 g/dL Hematocrit 43.7 % Mean Corpuscular Volume 92.2 fL Mean Corpuscular Hemoglobin 31.6 pg Mean Corpuscular Hemoglobin Concent 34.3 g/dL Red Cell Distribution Width 12.3 % Platelet Count 188 10^3/uL Mean Platelet Volume 10.3 fL Neutrophils (%) (Auto) 92.8 % Lymphocytes (%) (Auto) 3.0 % Monocytes (%) (Auto) 2.3 % Neutrophils # (Auto) 15.7 10^3/uL Lymphocytes # (Auto) 0.51 10^3/uL1 Monocytes # (Auto) 0.4 10^3/uL Absolute Immature Granulocyte (auto 0.30 10^3 u/L Absolute Eosinophils (auto) 0.0 10^3/uL Immature Granulocytes % 1.80 % Eosinophils % 0.0 % Basophils % 0.1 % Basophils # 0.0 10^3/uL Sodium Level 141 mmol/L Potassium Level 4.2 mmol/L Chloride Level 106.0 mmol/L Carbon Dioxide Level 29.4 mmol/L Anion Gap 9.8 Blood Urea Nitrogen 20 mg/dL Creatinine 0.60 mg/dL Estimated GFR () 169.3 Est GFR (CKD-EPI)(Non-Afr [place]) 139.9 BUN/Creatinine Ratio 33.0 Glucose Level 119 mg/dL Calcium Level 8.2 mg/dL Total Bilirubin 0.6 mg/dL Aspartate Amino Transf (AST/SGOT) 32 U/L Alanine Aminotransferase (ALT/SGPT) 36 U/L Alkaline Phosphatase 69 U/L Total Protein 5.7 g/dL Albumin 1.6 g/dL Globulin 4.1 Albumin/Globulin Ratio 0.390 Current Medications Medications (Trade) Dose Ordered Sig/Estuardo PRN Reason Start Time Stop Time Status Last Admin Dexmedetomidine HCl 800 mcg/ Sodium Chloride 200 ml @ 0 mls/hr IV 09/04/20 20:00 10/04/20 19:59 09/07/20 11:26 Enoxaparin Sodium (Lovenox) 40 mg BID 09/04/20 21:00 10/04/20 20:59 09/07/20 08:07 Piperacillin Sod/ Tazobactam Sod 3.375 gm/Sodium Chloride 100 ml @ 100 mls/hr Q6H 09/07/20 13:00 10/07/20 12:59 09/07/20 12:24 Vancomycin HCl 1.5 gm/Sodium Chloride 300 ml @ 175 mls/hr Q12H 09/05/20 11:00 10/05/20 10:59 09/07/20 10:46 Orders - ENAKUAA,SOUAD M MD Xr Chest 1v (09/06/20 09:00) Dexamethasone Sodium Phosp/Pf (Dexametha (09/06/20 09:00) Rt Request For Service (09/06/20 08:00) Heart: Normal S1, Normal S2, No murmurs, Other (slightly tachycardic this AM) Abdomen: Normal bowel sounds, Soft Lungs: Other (breath sounds equal and symmetric. Lungs are mostly clear, but there are increasing scattered rales. ) Skin: No rashes, No breakdown, No significant lesion, Other (There is signicant subq emphysema overlying his chest and neck. ) ARMANDO OLIVARES MD Sep 07, 2020 17:47
[2020-09-07] MEDS ORDERED: NS 500ML 500 ML IV ONE (20:09)
[2020-09-07] MEDS ORDERED: NS IV SCH (21:00)
[2020-09-07] MEDS ORDERED: SUBLIMAZE IV SCH (21:00)
--- NOTE | 2020-09-07 21:27 | DIET.OP ---
Nutrition Asmt/Malnutrit 2-17 Actual Date of Review: Sep 07, 2020 Nutritional Screening: vent/TF Diagnosis: COVID 19, resp distress Pertinent Medical Hx/Surgical: HTN Subjective Information: Telehealth consult - pt intubated and sedated. Being proned 16 hrs a day and TF held while in prone. Jevity 1.5 running at 45 ml/hr 8 hrs a day not meeting pts needs. Current Diet Order/Nutrition S: EN Pertinent Meds Current Medications Medications (Trade) Dose Ordered Sig/Estuardo PRN Reason Start Time Stop Time Status Last Admin Dexmedetomidine HCl 1600 mcg/ Sodium Chloride 400 ml @ 0 mls/hr IV 09/07/20 21:00 10/07/20 20:59 Enoxaparin Sodium (Lovenox) 40 mg BID 09/04/20 21:00 10/04/20 20:59 09/07/20 20:30 Fentanyl Citrate 2000 mcg/Sodium Chloride 200 ml @ 0 mls/hr IV 09/07/20 21:00 10/07/20 20:59 Piperacillin Sod/ Tazobactam Sod 3.375 gm/Sodium Chloride 100 ml @ 100 mls/hr Q6H 09/07/20 13:00 10/07/20 12:59 09/07/20 18:01 Vancomycin HCl 1.5 gm/Sodium Chloride 300 ml @ 175 mls/hr Q8H 09/07/20 20:00 10/07/20 19:59 09/07/20 20:00 Pertinent Labs Laboratory Tests Test 09/06/20 04:10 09/06/20 07:55 09/06/20 20:45 09/07/20 00:00 White Blood Count 13.9 10^3/uL Red Blood Count 4.61 10^6/uL Hemoglobin 14.7 g/dL Hematocrit 42.9 % Mean Corpuscular Volume 93.1 fL Mean Corpuscular Hemoglobin 31.9 pg Mean Corpuscular Hemoglobin Concent 34.3 g/dL Red Cell Distribution Width 12.4 % Platelet Count 159 10^3/uL Mean Platelet Volume 9.8 fL Neutrophils (%) (Auto) 89.3 % Lymphocytes (%) (Auto) 6.1 % Monocytes (%) (Auto) 2.7 % Neutrophils # (Auto) 12.4 10^3/uL Lymphocytes # (Auto) 0.84 10^3/uL1 Monocytes # (Auto) 0.4 10^3/uL Absolute Immature Granulocyte (auto 0.20 10^3 u/L Absolute Eosinophils (auto) 0.1 10^3/uL Immature Granulocytes % 1.40 % Eosinophils % 0.4 % Basophils % 0.1 % Basophils # 0.0 10^3/uL D-Dimer 3.65 mg/L Sodium Level 140 mmol/L Potassium Level 4.3 mmol/L Chloride Level 106.0 mmol/L Carbon Dioxide Level 30.5 mmol/L Anion Gap 7.8 Blood Urea Nitrogen 17 mg/dL Creatinine 0.62 mg/dL Estimated GFR () 163.0 Est GFR (CKD-EPI)(Non-Afr Guyanese) 134.7 BUN/Creatinine Ratio 27.0 Glucose Level 128 mg/dL Calcium Level 7.9 mg/dL Phosphorus Level 2.8 mg/dL Magnesium Level 2.2 mg/dL Ferritin 1712 ng/mL Total Bilirubin 0.4 mg/dL Aspartate Amino Transf (AST/SGOT) 25 U/L Alanine Aminotransferase (ALT/SGPT) 37 U/L Alkaline Phosphatase 65 U/L Lactate Dehydrogenase 407 U/L Total Creatine Kinase 40 U/L C-Reactive Protein 11.49 mg/dL Total Protein 5.4 g/dL Albumin 1.7 g/dL Globulin 3.7 Albumin/Globulin Ratio 0.459 Procalcitonin 0.05 ng/mL Blood Gas Sample Site PILY A LINE Blood Gas pH 7.404 7.413 Blood Gas PCO2 46.2 mmHg 43.7 mmHg Blood Gas PO2 42.9 mmHg 58.7 mmHg Blood Gas HCO3 28.2 mmol/L 27.3 mmol/L Blood Gas Base Excess 2.8 mmol/L 2.2 mmol/L Vince Test N/A N/A Arterial Blood Oxygen Saturation 78.0 % 90.9 % Deoxyhemoglobin 21.7 % 9.0 % Carboxyhemoglobin 0.9 % 0.9 % Methemoglobin 0.4 % 0.4 % Total Hemoglobin 16.1 % 16.8 % Total Oxygen Concentration 17.4 % 21.1 % Blood Gas Temperature 37.0 37 Oxygen Delivery Method (LAB) VENT VENT Blood Gas Vent Mode AC AC Blood Gas Vent Rate 20 22 FiO2 100 % 100 % Blood Gas Tidal Volume 500 ML 450 ML Blood Gas PEEP 12 CMH2O 12 CMH2O Total Carbon Dioxide 29.7 mmol/L 28.6 mmol/L Vancomycin Level Trough 3.2 ug/mL Test 09/07/20 03:57 White Blood Count 16.9 10^3/uL Red Blood Count 4.74 10^6/uL Hemoglobin 15.0 g/dL Hematocrit 43.7 % Mean Corpuscular Volume 92.2 fL Mean Corpuscular Hemoglobin 31.6 pg Mean Corpuscular Hemoglobin Concent 34.3 g/dL Red Cell Distribution Width 12.3 % Platelet Count 188 10^3/uL Mean Platelet Volume 10.3 fL Neutrophils (%) (Auto) 92.8 % Lymphocytes (%) (Auto) 3.0 % Monocytes (%) (Auto) 2.3 % Neutrophils # (Auto) 15.7 10^3/uL Lymphocytes # (Auto) 0.51 10^3/uL1 Monocytes # (Auto) 0.4 10^3/uL Absolute Immature Granulocyte (auto 0.30 10^3 u/L Absolute Eosinophils (auto) 0.0 10^3/uL Immature Granulocytes % 1.80 % Eosinophils % 0.0 % Basophils % 0.1 % Basophils # 0.0 10^3/uL Sodium Level 141 mmol/L Potassium Level 4.2 mmol/L Chloride Level 106.0 mmol/L Carbon Dioxide Level 29.4 mmol/L Anion Gap 9.8 Blood Urea Nitrogen 20 mg/dL Creatinine 0.60 mg/dL Estimated GFR () 169.3 Est GFR (CKD-EPI)(Non-Afr Guyanese) 139.9 BUN/Creatinine Ratio 33.0 Glucose Level 119 mg/dL Calcium Level 8.2 mg/dL Total Bilirubin 0.6 mg/dL Aspartate Amino Transf (AST/SGOT) 32 U/L Alanine Aminotransferase (ALT/SGPT) 36 U/L Alkaline Phosphatase 69 U/L Total Protein 5.7 g/dL Albumin 1.6 g/dL Globulin 4.1 Albumin/Globulin Ratio 0.390 Height (Feet): 5 Height (Inches): 7 Current Weight: 204 %IBW: 138 Recent Weight Change: No Weight Status: Obese GI Comments Fluid balance is pos 852 ml. LBM 2 days ago. Food Allergies: No Skin Integrity/Comment: Yes BEE in Kcals: Use Current Weight Calories/Kcals/Kg: Herminio St Eq for vent Kcals Calculated: 8 kcal Protein: Use Current Weight Protein g/k.8-1 Protein Calculated: 74-93g Fluid: ml: 2048 ml (1ml/kcal) Nutritional Problem: Nutr. Problems Present Problems: Inadequate enteral nurition infusion Etiology: pt not being fed in the prone position Signs/Symptoms: jevity 1.5 @ 45 ml/hr for only 8 hrs providing 540 kcal, meeting 26% of the pts energy needs RD Comments: 1. Recommend trickle feeds when pt is proned. Jevity 1.5 @ 15 ml/hr when pt is proned and 95 ml/hr when pt is in supine position. This will provide 1500 kcal, 64 g protein, 216 g CHO, 50 g fat, 760 mls of water meeting 100% of the pts needs in combination with calories from propofol. 2. Monitor K, Mg, and PO4 during EN. Monitor BG every 4-6 hrs and correct as appropriate. 3. RD to update recommendations based on vent and sedation settings. Expected Outcomes TF increased to 95 ml/hr when pt is in supine and trickle feeds when proned to meet the pts nutrition needs in the next 2 days. Malnutrtion/Nutrition Risk Edu: No MD Notificiation Needed?: Yes (recommend trickle feeds, 15 ml/hr when pt is in prone and 95 ml/hr when pt is supine to meet their nutrition needs.) Brittany Coleman Sep 07, 2020 21:27
[2020-09-08] VITALS (36 sets, daily range): BP systolic 113–147; BP diastolic 55–86
[2020-09-08] MEDS: ZOSYN 3.375 GM 3.375 GM in NS 100ML 100 ML IV SCH ×5 (01:00→18:03)
--- NOTE | 2020-09-08 03:15 | NUR ---
Pt inner R nare noticed to be bleeding., charge nurse made aware. Photos taken per policy. Will pass on to dayshift wound care nurse & RN taking over care. Will continue to monitor. Safety maintained.
[2020-09-08] MEDS: VANCOMYCIN HCL 1.5 GM in NS 250ML 300 ML IV SCH ×2 (04:00→13:30)
[2020-09-08 06:12] LABS: RED CELL DISTRIBUTION WIDTH 12.6 % (11.5-14.5)
[2020-09-08 06:39] LABS: CARBON DIOXIDE 27.2 mmol/L (20.0-32)
[2020-09-08 08:01] LABS: ABG PCO2 42.4 mmHg (35.0-45.0); BE(B) 5.1 mmol/L (-2.0-2.0); HCO3act 29.5 mmol/L (22.0-26.0); pO2 70.4 mmHg (80.0-100.0)
[2020-09-08] MEDS: ASPIRIN PO SCH (08:04)
[2020-09-08] MEDS: VITAMIN C PO SCH ×2 (08:04→20:30)
[2020-09-08] MEDS: PEPCID IV SCH ×2 (08:04→20:30)
[2020-09-08] MEDS: ZINC SULFATE PO SCH (08:04)
[2020-09-08] MEDS: DEXAMETHASONE 10 MG/ML VIAL IV SCH (08:05)
[2020-09-08] MEDS: DUO 0.5-3(2.5) MG/3 ML IH SCH ×3 (08:45→21:01)
--- NOTE | 2020-09-08 09:16 | NUR ---
Vascular access nurse at bedside, updated on pt's condition and IV access status. Pt's left arm edemous and firm to touch. IV drips infusing in right upper #20 gauge INt. Antibiotics infusing via Right Hand #20 guage. Left Midline IV flushes hard. Nurse in room attempting to obtain additional iv access for patient.
[2020-09-08 09:28] LABS: CALCIUM 8.2 mg/dL (8.4-10.5); CARBON DIOXIDE 26.5 mmol/L (20.0-32)
[2020-09-08] MEDS: LOVENOX SQ SCH ×2 (09:36→20:30)
[2020-09-08] MEDS: DIPRIVAN IV PRN ×3 (09:36→18:04)
--- NOTE | 2020-09-08 09:45 | NUR ---
Face time with Amanda and other family members performed using pt's phone. Pt arousable but weak, able to nodd and move head in response to family.
--- NOTE | 2020-09-08 10:12 | NUR ---
Pulmonary rounds performed via telemed with Dr Parsons. Pt vent setting, ABG results and sedation reviewed. No changes at this time. Pt repositioned, respiratory rate in the low 30's sedation adjusted, will continue to monitor.
[2020-09-08] MEDS: NORCURON IV PRN ×3 (10:26→17:29)
[2020-09-08] MEDS ORDERED: LASIX IV STA (10:42)
[2020-09-08] MEDS ORDERED: LASIX ONE (10:52)
--- NOTE | 2020-09-08 11:20 | NUR ---
Respiratory therapist at bedside, pt turned in proned positioned as ordered. Pt carlos manuel prominences cushioned with foam and pillows.
--- NOTE | 2020-09-08 11:21 | TELE.CONS ---
Consultation Reason for Consult: Reason for Consultation: resp failure follow up History of Present Illness History of Patient Comments vented sedated paralyzed high vent settings Review of Systems ENT: Other Allergies: Coded Allergies: Sulfa (Sulfonamide Antibiotics) (Verified Allergy, Mild, 08/31/20) Scheduled Atorvastatin 10MG (Lipitor 10MG), 1 TAB PO HS, (Reported) Bisoprolol Fumarate/Hctz (Bisoprolol-Hctz 5-6.25 Mg Tab), 1 TAB PO DAILY, (Reported) Temazepam (Restoril), 1 CAP PO HS, (Reported) VITALS REVIEW VITALS Vital Sign - Last 24 Hours 08/31/20 08/31/20 08/31/20 08/31/20 00:59 00:59 00:59 01:31 Temp 99.3 99.1 99.1 99.1 Pulse 96 96 96 89 Resp 22 22 22 22 B/P (MAP) 154/64 (94) 133/78 (96) Pulse Ox 85 85 85 O2 Delivery Non-Rebreather Non-Rebreather O2 Flow Rate 15.00 15.00 08/31/20 08/31/20 08/31/20 08/31/20 02:09 03:00 03:05 03:25 Temp 99.2 99.2 99.6 Pulse 85 86 102 Resp 22 22 B/P (MAP) 130/82 (98) 135/75 (95) 159/87 (111) Pulse Ox 90 91 90 O2 Delivery Non-Rebreather Bi-pap Non-Rebreather Non-Rebreather O2 Flow Rate 15.00 100.00 15.00 15.00 08/31/20 08/31/20 08/31/20 08/31/20 04:27 04:48 04:56 06:14 Temp 99.3 Pulse 92 114 85 Resp 30 42 22 B/P (MAP) 136/82 (100) Pulse Ox 86 88 90 O2 Delivery Comfort Ryne S/T Non-Rebreather S/T O2 Flow Rate 60.00 15.00 FiO2 100 100 100 08/31/20 08/31/20 08/31/20 08/31/20 08:08 08:30 08:54 08:54 Pulse 111 114 Resp 39 44 B/P (MAP) 141/91 Pulse Ox 91 91 O2 Delivery Bi-pap 11/2008/31/20 08/31/20 08/31/20 08:57 08:57 09:03 11:27 Temp 100.0 Pulse 119 110 103 104 Resp 44 45 60 36 B/P (MAP) 141/91 (108) Pulse Ox 90 87 89 94 O2 Delivery CPAP CPAP FiO2 100 100 08/31/20 08/31/20 08/31/20 08/31/20 11:49 14:30 15:23 15:45 Temp 98.5 Pulse 111 92 91 Resp 58 49 49 B/P (MAP) 119/85 (96) Pulse Ox 89 90 90 O2 Delivery CPAP FiO2 100 08/31/20 08/31/20 08/31/20 08/31/20 15:52 16:00 16:00 16:30 Temp 97.3 98.0 Pulse 93 85 92 Resp 44 55 40 B/P (MAP) 145/95 (112) 128/78 (95) Pulse Ox 89 91 91 O2 Delivery Bi-pap 08/31/20 08/31/20 08/31/20 08/31/20 16:34 16:45 16:49 17:00 Pulse 86 86 98 89 Resp 62 34 42 B/P (MAP) 127/82 (97) Pulse Ox 90 89 88 93 08/31/20 08/31/20 08/31/20 08/31/20 17:01 17:02 17:02 17:04 Pulse 93 99 101 87 Resp 39 39 38 37 B/P (MAP) 128/78 (95) Pulse Ox 92 91 91 90 O2 Delivery CPAP FiO2 100 08/31/20 08/31/20 08/31/20 08/31/20 17:15 17:19 17:30 17:34 Pulse 83 89 91 88 Resp 78 34 32 B/P (MAP) 136/109 (118) 134/78 (96) Pulse Ox 90 87 89 88 08/31/20 08/31/20 08/31/20 08/31/20 17:45 17:49 18:00 18:02 Pulse 89 87 89 92 Resp 69 54 47 B/P (MAP) 134/91 (105) Pulse Ox 86 89 88 89 O2 Delivery CPAP FiO2 100 08/31/20 08/31/20 08/31/20 08/31/20 18:04 18:15 18:19 19:34 Pulse 84 86 77 82 Resp 43 26 39 49 B/P (MAP) 138/68 (91) 125/58 (80) 117/74 (88) Pulse Ox 88 91 90 93 08/31/20 08/31/20 08/31/20 08/31/20 19:45 19:49 20:00 20:00 Pulse 74 69 97 Resp 41 42 57 B/P (MAP) 118/69 (85) Pulse Ox 94 92 86 O2 Delivery C-Pap 08/31/20 08/31/20 08/31/20 08/31/20 20:04 20:15 20:19 20:30 Pulse 87 71 81 81 Resp 37 28 41 B/P (MAP) 121/77 (92) 124/69 (87) Pulse Ox 88 93 91 91 08/31/20 08/31/20 08/31/20 08/31/20 20:34 20:45 20:49 20:50 Temp 97.0 Pulse 78 76 84 Resp 43 48 B/P (MAP) 124/69 (87) 115/79 (91) Pulse Ox 90 93 91 08/31/20 08/31/20 08/31/20 08/31/20 21:00 21:04 21:15 21:19 Pulse 82 88 86 86 Resp 47 57 26 40 B/P (MAP) 126/84 (98) 138/72 (94) Pulse Ox 91 87 89 87 08/31/20 08/31/20 08/31/20 08/31/20 21:30 21:34 21:45 21:45 Pulse 99 92 88 98 Resp 42 33 83 B/P (MAP) 142/85 (104) Pulse Ox 88 89 91 89 O2 Delivery CPAP FiO2 100 08/31/20 08/31/20 08/31/20 09/01/20 22:44 22:46 22:46 00:00 Temp 98.4 Pulse 88 88 88 Resp 33 33 33 Pulse Ox 90 90 91 09/01/20 09/01/20 09/01/20 09/01/20 00:00 00:30 04:00 04:00 Temp 98.1 Pulse 83 Resp 41 Pulse Ox 92 O2 Delivery C-Pap CPAP C-Pap FiO2 100 09/01/20 09/01/20 09/01/20 09/01/20 04:00 04:09 04:15 04:23 Pulse 73 94 86 76 Resp 43 36 27 50 B/P (MAP) 133/71 (91) 104/49 (67) Pulse Ox 92 83 89 91 09/01/20 09/01/20 09/01/20 09/01/20 04:30 04:39 04:45 04:54 Pulse 82 96 94 Resp 42 48 B/P (MAP) 131/87 (102) 105/43 (63) Pulse Ox 91 82 86 85 09/01/20 09/01/20 09/01/20 09/01/20 05:00 05:00 05:08 05:15 Pulse 84 103 110 99 Resp 40 47 73 46 B/P (MAP) 120/75 (90) Pulse Ox 93 85 83 90 O2 Delivery CPAP FiO2 100 09/01/20 09/01/20 09/01/20 09/01/20 05:23 05:30 05:38 05:45 Pulse 102 88 94 88 Resp 28 33 47 B/P (MAP) 110/66 (81) 118/71 (87) Pulse Ox 79 82 88 91 09/01/20 09/01/20 09/01/20 09/01/20 05:53 07:15 09:36 09:36 Pulse 98 111 107 Resp 45 45 B/P (MAP) 116/76 (89) Pulse Ox 87 91 90 O2 Delivery C-Pap 09/01/20 09/01/20 09/01/20 09/01/20 09:37 10:47 11:00 11:48 Pulse 111 76 76 Resp 51 22 22 Pulse Ox 91 91 91 O2 Delivery CPAP Mechanical Ventilator FiO2 100 100 100 09/01/20 09/01/20 09/01/20 09/01/20 14:50 14:50 14:50 14:54 Pulse 74 74 76 74 Resp 22 22 22 22 Pulse Ox 94 94 91 94 FiO2 100 09/01/20 09/01/20 09/01/20 09/01/20 15:00 15:48 15:58 16:00 Pulse 102 73 75 Resp 25 24 B/P (MAP) 107/69 (82) Pulse Ox 91 95 95 O2 Delivery Mechanical Ventilator 09/01/20 09/01/20 09/01/20 09/01/20 16:01 16:04 16:07 16:10 Pulse 77 75 78 73 Resp 23 23 24 22 B/P (MAP) 104/66 (79) 102/63 (76) 104/58 (73) 102/62 (75) Pulse Ox 95 95 95 95 09/01/20 09/01/20 09/01/20 09/01/20 16:13 16:15 16:16 16:19 Pulse 72 77 77 77 Resp 21 23 23 22 B/P (MAP) 101/62 (75) 107/61 (76) 100/61 (74) Pulse Ox 95 95 95 96 09/01/20 09/01/20 09/01/20 09/01/20 16:22 16:25 16:28 16:30 Pulse 78 76 77 78 Resp 23 24 23 23 B/P (MAP) 100/60 (73) 105/61 (76) 101/65 (77) Pulse Ox 95 95 95 95 09/01/20 09/01/20 09/01/20 09/01/20 16:31 16:34 16:37 16:56 Pulse 77 77 79 73 Resp 24 24 23 22 B/P (MAP) 102/61 (75) 101/64 (76) 98/62 (74) Pulse Ox 95 96 95 93 FiO2 100 09/01/20 09/01/20 09/01/20 09/01/20 19:13 19:15 19:16 19:19 Pulse 67 79 81 73 Resp 22 24 25 B/P (MAP) 106/72 (83) 112/67 (82) 105/60 (75) Pulse Ox 96 85 91 92 09/01/20 09/01/20 09/01/20 09/01/20 19:22 19:25 19:28 19:30 Pulse 74 71 73 73 Resp 24 23 23 24 B/P (MAP) 105/60 (75) 106/61 (76) 106/62 (77) Pulse Ox 91 91 91 92 09/01/20 09/01/20 09/01/20 09/01/20 19:31 19:34 19:37 19:40 Pulse 72 72 72 71 Resp 23 23 23 23 B/P (MAP) 106/62 (77) 107/64 (78) 102/60 (74) 105/61 (76) Pulse Ox 92 92 92 92 09/01/20 09/01/20 09/01/20 09/01/20 19:43 19:45 19:46 19:49 Pulse 72 71 71 72 Resp 22 23 24 24 B/P (MAP) 108/59 (75) 107/61 (76) 106/61 (76) Pulse Ox 92 92 92 92 09/01/20 09/01/20 09/01/20 09/01/20 19:52 19:55 19:58 20:00 Pulse 72 72 73 72 Resp 23 23 23 26 B/P (MAP) 104/64 (77) 104/63 (77) 100/62 (75) Pulse Ox 92 92 91 92 FiO2 100 09/01/20 09/01/20 09/01/20 09/01/20 20:00 20:13 20:15 20:16 Pulse 72 73 73 Resp 23 23 23 B/P (MAP) 105/61 (76) 106/63 (77) Pulse Ox 90 90 90 O2 Delivery Mechanical Ventilator 09/01/20 09/01/20 09/01/20 09/01/20 20:19 20:22 20:25 20:28 Pulse 73 72 73 72 Resp 23 23 B/P (MAP) 105/63 (77) 104/62 (76) 106/61 (76) 102/62 (75) Pulse Ox 90 91 90 91 09/01/20 09/01/20 09/01/20 09/01/20 20:30 20:31 20:34 20:37 Pulse 71 72 69 73 Resp 23 23 22 22 B/P (MAP) 107/66 (80) 103/55 (71) 99/57 (71) Pulse Ox 91 91 90 90 09/01/20 09/01/20 09/01/20 09/01/20 20:40 20:43 20:45 20:46 Pulse 71 70 77 72 Resp 22 22 22 22 B/P (MAP) 105/61 (76) 103/62 (76) 111/64 (80) Pulse Ox 90 90 91 92 09/01/20 09/01/20 09/01/20 09/01/20 20:49 20:52 20:55 20:58 Pulse 73 73 67 74 Resp 22 22 22 23 B/P (MAP) 104/61 (75) 108/62 (77) 111/63 (79) 108/63 (78) Pulse Ox 92 92 93 92 09/01/20 09/01/20 09/01/20 09/01/20 21:10 21:11 21:12 21:12 Pulse 74 74 74 74 Resp 22 22 22 22 Pulse Ox 91 91 91 91 FiO2 100 09/01/20 09/01/20 09/01/20 09/01/20 21:46 21:49 21:52 21:55 Pulse 80 80 79 79 Resp 22 22 22 22 B/P (MAP) 106/62 (77) 110/63 (79) 109/63 (78) 110/58 (75) Pulse Ox 91 92 91 91 09/01/20 09/01/20 09/01/20 09/01/20 21:58 22:00 22:01 22:04 Pulse 79 78 80 80 Resp 22 22 22 23 B/P (MAP) 108/59 (75) 108/64 (79) 106/60 (75) Pulse Ox 92 92 92 92 09/01/20 09/01/20 09/01/20 09/01/20 22:07 22:10 22:13 22:15 Pulse 81 79 77 80 Resp 25 24 24 23 B/P (MAP) 107/61 (76) 107/63 (78) 110/65 (80) Pulse Ox 92 92 92 92 09/01/20 09/01/20 09/01/20 09/01/20 22:16 22:19 22:22 22:25 Pulse 79 80 80 77 Resp 24 25 24 25 B/P (MAP) 106/60 (75) 111/61 (78) 109/62 (78) 109/61 (77) Pulse Ox 92 92 92 92 09/01/20 09/01/20 09/01/20 09/01/20 22:28 22:30 22:31 22:34 Pulse 77 80 78 78 Resp 24 24 24 23 B/P (MAP) 110/67 (81) 106/63 (77) 110/63 (79) Pulse Ox 92 92 92 92 09/01/20 09/01/20 09/01/20 09/01/20 23:10 23:30 23:31 23:34 Pulse 76 77 74 76 Resp 22 22 23 26 B/P (MAP) 113/62 (79) 107/62 (77) Pulse Ox 92 92 92 92 FiO2 100 09/01/20 09/01/20 09/01/20 09/01/20 23:37 23:40 23:43 23:45 Pulse 76 76 73 75 Resp 26 26 26 27 B/P (MAP) 109/61 (77) 109/58 (75) 112/62 (79) Pulse Ox 92 93 93 93 09/01/20 09/01/20 09/01/20 09/01/20 23:46 23:49 23:52 23:55 Pulse 74 74 83 72 Resp B/P (MAP) 112/59 (76) 113/66 (82) 116/67 (83) 117/66 (83) Pulse Ox 93 93 94 93 09/01/20 09/02/20 09/02/20 09/02/20 23:58 00:00 00:00 00:13 Pulse 78 80 75 Resp B/P (MAP) 118/65 (82) 114/66 (82) Pulse Ox 93 93 93 O2 Delivery Mechanical Ventilator FiO2 100 09/02/20 09/02/20 09/02/20 09/02/20 00:15 00:16 00:19 00:22 Pulse 76 77 75 75 Resp B/P (MAP) 118/65 (82) 114/67 (83) 119/63 (81) Pulse Ox 93 93 92 93 09/02/20 09/02/20 09/02/20 09/02/20 00:25 00:28 00:30 00:31 Pulse 76 75 76 77 Resp B/P (MAP) 117/68 (84) 115/65 (82) 115/64 (81) Pulse Ox 93 92 92 92 09/02/20 09/02/20 09/02/20 09/02/20 00:34 00:37 00:40 00:43 Pulse 77 80 79 80 Resp B/P (MAP) 112/62 (79) 110/63 (79) 110/63 (79) 107/64 (78) Pulse Ox 93 92 92 92 09/02/20 09/02/20 09/02/20 09/02/20 00:45 00:46 00:49 00:52 Pulse 82 81 79 80 Resp B/P (MAP) 108/63 (78) 109/61 (77) 107/67 (80) Pulse Ox 92 92 92 93 09/02/20 09/02/20 09/02/20 09/02/20 00:55 00:58 01:13 01:15 Pulse 80 77 80 73 Resp 24 25 35 22 B/P (MAP) 109/65 (80) 109/63 (78) 114/60 (78) Pulse Ox 92 93 88 91 09/02/20 09/02/20 09/02/20 09/02/20 01:16 01:19 01:22 01:25 Pulse 76 77 75 74 Resp 22 B/P (MAP) 107/64 (78) 108/59 (75) 110/63 (79) 109/62 (78) Pulse Ox 92 92 92 93 09/02/20 09/02/20 09/02/20 09/02/20 01:28 01:30 01:31 01:34 Pulse 73 73 75 77 Resp B/P (MAP) 110/61 (77) 109/63 (78) 107/61 (76) Pulse Ox 92 92 92 93 09/02/20 09/02/20 09/02/20 09/02/20 01:37 01:40 01:43 01:45 Pulse 76 76 75 74 Resp 22 B/P (MAP) 105/64 (78) 105/62 (76) 104/63 (77) Pulse Ox 93 92 92 92 09/02/20 09/02/20 09/02/20 09/02/20 01:46 01:49 01:52 01:55 Pulse 75 77 79 75 Resp B/P (MAP) 113/62 (79) 108/64 (79) 107/61 (76) 107/62 (77) Pulse Ox 92 93 93 93 09/02/20 09/02/20 09/02/20 09/02/20 01:58 02:20 02:25 02:28 Pulse 76 79 74 71 Resp 22 B/P (MAP) 110/61 (77) 104/61 (75) 104/59 (74) Pulse Ox 92 93 93 93 FiO2 100 09/02/20 09/02/20 09/02/20 09/02/20 02:30 02:31 02:34 02:37 Pulse 73 70 69 70 Resp 22 B/P (MAP) 104/59 (74) 103/60 (74) 102/58 (73) Pulse Ox 93 93 93 93 09/02/20 09/02/20 09/02/20 09/02/20 02:40 02:43 02:45 02:46 Pulse 70 73 73 71 Resp B/P (MAP) 105/60 (75) 103/59 (74) 102/60 (74) Pulse Ox 93 93 93 93 09/02/20 09/02/20 09/02/20 09/02/20 02:49 02:52 02:55 02:58 Pulse 72 74 75 72 Resp B/P (MAP) 105/60 (75) 101/59 (73) 102/56 (71) 103/55 (71) Pulse Ox 93 93 93 93 09/02/20 09/02/20 09/02/20 09/02/20 03:00 03:01 03:04 03:07 Pulse 73 71 69 70 Resp B/P (MAP) 102/58 (73) 100/57 (71) 99/57 (71) Pulse Ox 93 93 93 93 09/02/20 09/02/20 09/02/20 09/02/20 03:10 03:13 03:22 03:25 Pulse 70 71 71 69 Resp B/P (MAP) 99/59 (72) 102/56 (71) 100/60 (73) 102/60 (74) Pulse Ox 93 93 93 93 09/02/20 09/02/20 09/02/20 09/02/20 03:28 03:29 03:31 03:34 Pulse 69 71 70 69 Resp B/P (MAP) 102/58 (73) 103/56 (72) 101/60 (74) Pulse Ox 93 93 93 93 09/02/20 09/02/20 09/02/20 09/02/20 03:37 03:40 03:43 03:44 Pulse 71 69 72 70 Resp B/P (MAP) 105/61 (76) 105/54 (71) 102/58 (73) Pulse Ox 93 93 93 92 09/02/20 09/02/20 09/02/20 09/02/20 03:46 03:49 03:52 03:55 Pulse 69 71 74 75 Resp B/P (MAP) 104/59 (74) 101/56 (71) 104/58 (73) 102/59 (73) Pulse Ox 93 93 93 93 09/02/20 09/02/20 09/02/20 09/02/20 03:58 03:59 04:00 04:00 Pulse 72 76 80 Resp B/P (MAP) 104/56 (72) Pulse Ox 92 93 93 O2 Delivery Mechanical Ventilator FiO2 100 09/02/20 09/02/20 09/02/20 09/02/20 04:01 04:04 04:04 04:08 Pulse 75 87 Resp 22 22 B/P (MAP) 103/61 (75) 107/56 (73) 107/56 (73) Pulse Ox 92 90 90 94 09/02/20 09/02/20 09/02/20 09/02/20 04:08 04:09 04:09 04:22 Temp 98.8 Pulse 87 Resp B/P (MAP) 123/65 (84) Pulse Ox 94 92 92 09/02/20 09/02/20 09/02/20 09/02/20 04:24 04:28 04:30 04:31 Temp 98.8 98.6 98.6 98.6 Pulse 123 120 126 115 Resp B/P (MAP) 128/73 (91) 121/77 (92) 129/70 (89) Pulse Ox 97 98 98 98 09/02/20 09/02/20 09/02/20 09/02/20 04:34 04:37 04:40 04:43 Temp 98.6 98.6 98.6 98.6 Pulse 114 105 97 94 Resp B/P (MAP) 127/83 (98) 127/82 (97) 118/63 (81) 115/64 (81) Pulse Ox 97 98 97 97 09/02/20 09/02/20 09/02/20 09/02/20 04:45 04:46 04:49 04:49 Temp 98.6 98.6 98.6 Pulse 94 92 87 118 Resp B/P (MAP) 118/72 (87) 139/87 (104) Pulse Ox 97 96 94 98 FiO2 100 09/02/20 09/02/20 09/02/20 09/02/20 04:52 04:55 04:58 05:07 Temp 98.6 98.6 98.6 98.6 Pulse 122 116 104 90 Resp 34 36 32 28 B/P (MAP) 144/95 (111) 130/74 (92) 123/66 (85) 113/67 (82) Pulse Ox 98 98 98 97 09/02/20 09/02/20 09/02/20 09/02/20 05:10 05:13 05:15 05:16 Temp 98.6 98.6 98.6 98.6 Pulse 105 99 122 104 Resp B/P (MAP) 130/76 (94) 129/77 (94) 129/72 (91) Pulse Ox 97 97 98 97 09/02/20 09/02/20 09/02/20 09/02/20 05:19 05:22 05:25 05:28 Temp 98.6 98.6 98.6 98.6 Pulse 104 112 113 95 Resp B/P (MAP) 125/74 (91) 140/95 (110) 136/70 (92) 119/62 (81) Pulse Ox 98 98 98 97 09/02/20 09/02/20 09/02/20 09/02/20 05:30 05:31 05:34 05:37 Temp 98.6 98.6 98.6 98.6 Pulse 93 91 92 93 Resp B/P (MAP) 113/65 (81) 113/62 (79) 118/66 (83) Pulse Ox 97 97 97 97 09/02/20 09/02/20 09/02/20 09/02/20 05:40 05:43 05:45 05:46 Temp 98.6 98.6 98.6 98.6 Pulse 105 103 96 95 Resp B/P (MAP) 125/74 (91) 136/83 (100) 116/66 (83) Pulse Ox 98 98 98 98 09/02/20 09/02/20 09/02/20 09/02/20 05:49 05:52 07:00 07:00 Temp 98.6 98.6 Pulse 90 91 80 Resp B/P (MAP) 116/64 (81) 111/57 (75) Pulse Ox 97 97 93 O2 Delivery Mechanical Ventilator FiO2 100 09/02/20 09/02/20 09/02/20 09/02/20 07:21 07:21 07:28 07:30 Temp 99.0 99.0 Pulse 98 98 83 87 Resp B/P (MAP) 112/65 (81) Pulse Ox 97 97 97 97 FiO2 100 09/02/20 09/02/20 09/02/20 09/02/20 07:31 07:34 07:37 07:40 Temp 99.0 99.0 99.0 99.1 Pulse 80 80 80 78 Resp 23 B/P (MAP) 106/60 (75) 108/62 (77) 107/56 (73) 112/65 (81) Pulse Ox 97 97 97 97 09/02/20 09/02/20 09/02/20 09/02/20 07:43 07:45 07:46 07:49 Temp 99.1 99.1 99.1 99.1 Pulse 81 78 85 84 Resp B/P (MAP) 106/58 (74) 108/60 (76) 107/60 (76) Pulse Ox 97 97 97 97 09/02/20 09/02/20 09/02/20 09/02/20 07:52 07:55 07:58 08:00 Temp 99.1 99.1 99.3 99.1 Pulse 83 100 94 87 Resp 34 43 26 45 B/P (MAP) 106/59 (75) 113/71 (85) 107/67 (80) Pulse Ox 97 97 97 97 09/02/20 09/02/20 09/02/20 09/02/20 08:01 08:04 08:07 08:10 Temp 99.1 99.3 99.1 99.1 Pulse 84 84 83 83 Resp 36 36 25 28 B/P (MAP) 105/57 (73) 99/60 (73) 103/62 (76) 101/51 (68) Pulse Ox 97 96 97 96 09/02/20 09/02/20 09/02/20 09/02/20 08:13 08:30 08:31 08:34 Temp 99.1 99.3 99.3 99.3 Pulse 84 84 83 82 Resp 24 B/P (MAP) 102/53 (69) 104/59 (74) 103/56 (72) Pulse Ox 96 96 96 96 09/02/20 09/02/20 09/02/20 09/02/20 08:37 08:40 08:43 08:45 Temp 99.3 99.3 99.3 99.3 Pulse 80 84 84 83 Resp B/P (MAP) 97/54 (68) 103/54 (70) 97/58 (71) Pulse Ox 96 96 96 96 09/02/20 09/02/20 09/02/20 09/02/20 08:46 08:49 08:52 08:55 Temp 99.3 99.3 99.3 99.3 Pulse 82 83 83 84 Resp B/P (MAP) 97/55 (69) 97/55 (69) 100/58 (72) 96/59 (71) Pulse Ox 96 96 96 96 09/02/20 09/02/20 09/02/20 09/02/20 08:58 09:00 09:01 09:04 Temp 99.3 99.3 99.5 99.3 Pulse 83 90 95 98 Resp B/P (MAP) 102/57 (72) 130/76 (94) 133/81 (98) Pulse Ox 96 97 97 97 09/02/20 09/02/20 09/02/20 09/02/20 09:06 09:06 09:07 09:10 Temp 99.3 99.3 Pulse 99 98 99 95 Resp B/P (MAP) 135/76 (95) 136/79 (98) Pulse Ox 97 97 97 98 09/02/20 09/02/20 09/02/20 09/02/20 09:13 09:15 09:15 09:16 Temp 99.3 99.3 99.3 99.3 Pulse 85 102 102 84 Resp B/P (MAP) 145/91 (109) 131/78 (95) Pulse Ox 98 98 98 97 09/02/20 09/02/20 09/02/20 09/02/20 09:16 09:30 09:32 09:45 Temp 99.3 99.1 99.1 99.3 Pulse 84 82 84 80 Resp B/P (MAP) 131/78 (95) 114/63 (80) Pulse Ox 97 97 98 98 11/22/09/02/20 09/02/20 09/02/20 09:47 09:59 10:00 10:02 Temp 99.3 99.3 99.3 Pulse 79 83 81 80 Resp B/P (MAP) 114/62 (79) 110/61 (77) Pulse Ox 98 98 98 98 FiO2 100 09/02/20 09/02/20 09/02/20 09/02/20 10:15 10:15 10:17 10:17 Temp 99.3 99.3 99.3 99.3 Pulse 84 84 83 83 Resp B/P (MAP) 114/61 (78) 114/61 (78) Pulse Ox 97 97 98 98 09/02/20 09/02/20 09/02/20 09/02/20 10:30 10:30 10:32 10:45 Temp 99.3 99.3 99.3 Pulse 84 82 85 Resp B/P (MAP) 111/61 (78) Pulse Ox 97 97 97 FiO2 90 09/02/20 09/02/20 09/02/20 09/02/20 10:47 11:00 11:02 11:15 Temp 99.3 99.3 99.5 99.5 Pulse 84 89 87 91 Resp B/P (MAP) 108/60 (76) 111/61 (78) Pulse Ox 97 97 96 95 09/02/20 09/02/20 09/02/20 09/02/20 11:17 11:26 11:26 11:30 Temp 99.5 Pulse 87 80 80 Resp B/P (MAP) 111/67 (82) Pulse Ox 95 93 93 O2 Delivery Mechanical Ventilator FiO2 100 90 09/02/20 09/02/20 09/02/20 09/02/20 11:30 11:32 11:39 11:45 Temp 99.5 99.5 99.5 Pulse 83 85 90 85 Resp B/P (MAP) 118/68 (85) Pulse Ox 96 95 97 97 FiO2 90 09/02/20 09/02/20 09/02/20 09/02/20 11:45 11:47 11:47 12:00 Temp 99.5 99.5 99.5 99.5 Pulse 85 89 89 84 Resp B/P (MAP) 126/69 (88) 126/69 (88) Pulse Ox 97 96 96 97 09/02/20 09/02/20 09/02/20 09/02/20 12:02 12:15 12:17 12:30 Temp 99.5 99.5 99.5 99.3 Pulse 83 81 82 86 Resp B/P (MAP) 121/68 (85) 120/67 (84) Pulse Ox 97 97 97 96 09/02/20 09/02/20 09/02/20 09/02/20 12:32 12:45 12:47 13:00 Temp 99.3 99.3 99.3 99.3 Pulse 81 82 79 82 Resp B/P (MAP) 116/71 (86) 113/70 (84) Pulse Ox 96 96 96 96 09/02/20 09/02/20 09/02/20 09/02/20 13:02 13:47 14:00 14:02 Temp 99.3 99.3 99.3 99.5 Pulse 81 75 79 73 Resp B/P (MAP) 111/65 (80) 113/66 (82) 113/65 (81) Pulse Ox 95 97 97 96 09/02/20 09/02/20 09/02/20 09/02/20 14:11 14:15 14:17 14:30 Temp 99.5 99.5 99.5 Pulse 78 80 76 81 Resp B/P (MAP) 119/71 (87) Pulse Ox 98 96 97 95 FiO2 90 09/02/20 09/02/20 09/02/20 09/02/20 14:32 14:45 14:47 15:00 Temp 99.5 99.7 99.7 99.7 Pulse 79 77 78 87 Resp B/P (MAP) 112/67 (82) 115/68 (84) Pulse Ox 96 96 96 09/02/20 09/02/20 09/02/20 09/02/20 15:02 15:15 15:17 15:30 Temp 99.7 99.7 99.7 99.7 Pulse 66 69 67 76 Resp B/P (MAP) 119/67 (84) 119/70 (86) Pulse Ox 93 96 96 97 09/02/20 09/02/20 09/02/20 09/02/20 15:32 15:45 15:47 15:48 Temp 99.7 99.7 99.7 Pulse 76 76 80 78 Resp B/P (MAP) 115/69 (84) 116/67 (83) Pulse Ox 97 97 97 96 09/02/20 09/02/20 09/02/20 09/02/20 15:48 15:51 16:00 16:02 Temp 99.9 99.9 Pulse 78 77 76 77 Resp B/P (MAP) 113/70 (84) Pulse Ox 96 97 97 97 FiO2 90 09/02/20 09/02/20 09/02/20 09/02/20 16:15 16:17 16:26 16:26 Temp 99.9 99.9 Pulse 79 79 80 Resp 09 23 27 B/P (MAP) 113/68 (83) Pulse Ox 97 97 93 O2 Delivery Mechanical Ventilator FiO2 90 09/02/20 09/02/20 09/02/20 09/02/20 16:30 16:45 16:47 17:00 Temp 100.0 100.0 100.0 100.0 Pulse 82 80 78 78 Resp B/P (MAP) 115/65 (82) Pulse Ox 97 97 97 97 09/02/20 09/02/20 09/02/20 09/02/20 17:02 17:15 17:17 17:29 Temp 100.0 100.2 100.2 Pulse 75 74 75 69 Resp 04 22 22 B/P (MAP) 120/73 (89) 116/73 (87) Pulse Ox 97 97 97 98 FiO2 90 09/02/20 09/02/20 09/02/20 09/02/20 17:30 17:30 17:32 17:45 Temp 100.2 100.2 100.4 Pulse 69 74 69 71 Resp B/P (MAP) 118/73 (88) Pulse Ox 98 97 97 97 O2 Delivery Mechanical Ventilator FiO2 90 09/02/20 09/02/20 09/02/20 09/02/20 17:47 18:00 18:02 18:15 Temp 100.4 100.4 100.4 100.4 Pulse 70 68 68 72 Resp B/P (MAP) 118/70 (86) 117/72 (87) Pulse Ox 97 98 98 98 09/02/20 09/02/20 09/02/20 09/02/20 18:17 18:47 19:02 19:17 Temp 100.4 100.4 100.4 100.4 Pulse 68 63 63 61 Resp 14 B/P (MAP) 117/71 (86) 119/74 (89) 117/76 (90) 121/77 (92) Pulse Ox 98 97 97 97 09/02/20 09/02/20 09/02/20 09/02/20 19:32 19:47 20:00 20:00 Temp 100.4 100.6 Pulse 61 60 62 Resp B/P (MAP) 121/72 (88) 117/73 (88) Pulse Ox 97 97 99 O2 Delivery Mechanical Ventilator 09/02/20 09/02/20 09/02/20 09/02/20 20:00 20:00 20:00 20:02 Temp 100.6 Pulse 60 57 57 63 Resp B/P (MAP) 116/70 (85) Pulse Ox 96 98 98 98 FiO2 90 90 09/02/20 09/02/20 09/02/20 09/02/20 20:17 20:32 20:47 21:02 Temp 100.6 100.6 100.6 100.6 Pulse 59 59 60 59 Resp B/P (MAP) 120/72 (88) 116/71 (86) 117/71 (86) 117/73 (88) Pulse Ox 98 98 98 98 09/02/20 09/02/20 09/02/20 09/02/20 21:17 21:32 21:47 22:02 Temp 100.8 100.8 100.8 100.8 Pulse 58 59 61 58 Resp B/P (MAP) 122/73 (89) 117/69 (85) 116/72 (87) 117/72 (87) Pulse Ox 98 97 97 97 09/02/20 09/02/20 09/02/20 09/02/20 22:17 22:30 22:37 22:47 Temp 100.8 100.6 100.4 Pulse 55 68 81 60 Resp 22 22 18 22 B/P (MAP) 125/72 (89) 130/61 (84) 133/75 (94) Pulse Ox 98 96 75 97 FiO2 90 09/02/20 09/02/20 09/02/20 09/02/20 23:02 23:11 23:11 23:17 Temp 100.2 100.0 Pulse 65 68 63 Resp 22 B/P (MAP) 133/76 (95) 129/70 (89) Pulse Ox 100 96 100 O2 Delivery Mechanical Ventilator FiO2 90 09/02/20 09/02/20 09/03/20 09/03/20 23:32 23:47 00:02 00:17 Temp 100.0 100.0 100.0 100.0 Pulse 65 66 60 60 Resp 29 26 26 B/P (MAP) 120/62 (81) 112/66 (81) 118/69 (85) 118/74 (89) Pulse Ox 100 100 99 100 09/03/20 09/03/20 09/03/20 09/03/20 00:32 00:47 01:00 01:02 Temp 100.0 99.9 99.9 Pulse 59 59 62 58 Resp B/P (MAP) 117/72 (87) 116/66 (83) 118/66 (83) Pulse Ox 100 100 99 100 FiO2 90 09/03/20 09/03/20 09/03/20 09/03/20 01:17 01:32 02:02 02:17 Temp 99.9 99.9 99.9 99.9 Pulse 60 58 58 57 Resp B/P (MAP) 116/69 (85) 114/65 (81) 111/65 (80) 113/65 (81) Pulse Ox 100 100 99 100 09/03/20 09/03/20 09/03/20 09/03/20 02:32 02:47 03:00 03:00 Temp 99.9 99.9 Pulse 58 61 59 Resp B/P (MAP) 114/67 (83) 109/65 (80) Pulse Ox 100 99 100 O2 Delivery Mechanical Ventilator FiO2 90 09/03/20 09/03/20 09/03/20 09/03/20 03:00 03:00 03:00 03:02 Temp 99.9 Pulse 59 59 68 59 Resp 32 32 32 37 B/P (MAP) 130/72 (91) Pulse Ox 98 98 99 100 FiO2 90 09/03/20 09/03/20 09/03/20 09/03/20 03:18 03:48 04:02 04:17 Temp 99.5 Pulse 81 91 87 90 Resp 29 36 24 29 B/P (MAP) 125/76 (92) 93/58 (70) 107/67 (80) 112/69 (83) Pulse Ox 99 93 100 95 09/03/20 09/03/20 09/03/20 09/03/20 04:32 04:47 05:02 05:17 Pulse 63 59 66 61 Resp 27 24 26 26 B/P (MAP) 117/69 (85) 116/68 (84) 110/63 (79) 110/66 (81) Pulse Ox 100 100 100 100 09/03/20 09/03/20 09/03/20 09/03/20 05:32 05:47 05:50 05:50 Pulse 63 67 68 Resp 24 25 49 25 B/P (MAP) 119/60 (79) 108/66 (80) Pulse Ox 100 99 90 99 FiO2 90 09/03/20 09/03/20 09/03/20 09/03/20 06:02 06:17 08:00 08:00 Pulse 65 71 53 Resp 26 27 22 B/P (MAP) 110/65 (80) 106/66 (79) Pulse Ox 100 100 100 O2 Delivery Mechanical Ventilator FiO2 70 09/03/20 09/03/20 09/03/20 09/03/20 08:06 08:06 08:07 08:17 Pulse 61 61 61 61 Resp 26 26 25 25 Pulse Ox 98 98 98 98 O2 Delivery Mechanical Ventilator FiO2 90 90 09/03/20 09/03/20 09/03/20 09/03/20 10:21 12:00 12:00 13:50 Pulse 75 53 75 Resp 36 22 22 Pulse Ox 99 100 99 O2 Delivery Mechanical Ventilator FiO2 80 70 80 09/03/20 09/03/20 09/03/20 09/03/20 15:24 15:24 15:35 16:00 Pulse 58 75 58 53 Resp 31 22 31 22 Pulse Ox 99 99 99 100 FiO2 80 70 09/03/20 09/03/20 09/03/20 09/03/20 16:00 16:17 16:30 16:32 Temp 99.7 99.7 99.7 Pulse 63 57 60 Resp 50 48 82 B/P (MAP) 141/77 (98) 144/82 (102) Pulse Ox 99 100 99 O2 Delivery Mechanical Ventilator 09/03/20 09/03/20 09/03/20 09/03/20 16:45 16:47 17:00 17:02 Temp 99.7 99.7 99.7 99.7 Pulse 57 55 56 54 Resp 49 42 28 37 B/P (MAP) 145/79 (101) 143/79 (100) Pulse Ox 100 100 100 100 09/03/20 09/03/20 09/03/20 09/03/20 17:15 17:17 17:30 17:32 Temp 99.7 99.7 99.7 99.7 Pulse 70 65 57 60 Resp 30 B/P (MAP) 128/65 (86) 129/66 (87) Pulse Ox 99 100 100 100 09/03/20 09/03/20 09/03/20 09/03/20 17:45 17:47 17:52 18:00 Temp 99.5 99.5 99.5 Pulse 54 54 53 53 Resp B/P (MAP) 123/67 (85) Pulse Ox 100 100 100 100 FiO2 80 09/03/20 09/03/20 09/03/20 09/03/20 18:02 18:06 18:15 18:17 Temp 99.5 99.5 99.7 99.7 Pulse 52 54 53 53 Resp B/P (MAP) 129/67 (87) 126/66 (86) 128/68 (88) Pulse Ox 100 100 100 100 09/03/20 09/03/20 09/03/20 09/03/20 18:21 19:21 19:21 19:21 Temp 99.7 100.0 Pulse 53 52 52 Resp B/P (MAP) 130/72 (91) 131/74 (93) Pulse Ox 100 100 100 O2 Delivery Mechanical Ventilator FiO2 70 09/03/20 09/03/20 09/03/20 09/03/20 19:36 19:51 20:00 20:00 Temp 100.0 100.0 Pulse 53 64 59 64 Resp 25 30 22 22 B/P (MAP) 126/72 (90) 125/68 (87) Pulse Ox 100 100 99 99 FiO2 70 09/03/20 09/03/20 09/03/20 09/03/20 20:00 20:00 20:06 20:21 Temp 99.9 100.0 Pulse 59 59 78 64 Resp 25 B/P (MAP) 128/90 (103) 136/60 (85) Pulse Ox 99 99 99 100 O2 Delivery Mechanical Ventilator FiO2 70 09/03/20 09/03/20 09/03/20 09/03/20 20:36 20:51 21:06 21:15 Temp 99.9 99.9 99.7 99.7 Pulse 54 59 69 62 Resp B/P (MAP) 123/62 (82) 126/74 (91) 117/63 (81) Pulse Ox 100 99 98 100 09/03/20 09/03/20 09/03/20 09/03/20 21:21 21:30 21:36 21:51 Temp 99.7 99.7 99.7 99.9 Pulse 62 63 61 58 Resp 18 B/P (MAP) 123/69 (87) 126/72 (90) 128/75 (92) Pulse Ox 100 100 100 100 09/03/20 09/03/20 09/03/20 09/03/20 22:06 22:06 22:21 22:36 Temp 99.9 99.9 99.9 Pulse 57 59 56 57 Resp 15 23 B/P (MAP) 128/70 (89) 133/73 (93) 135/82 (99) Pulse Ox 100 100 100 100 FiO2 70 09/03/20 09/03/20 09/03/20 09/03/20 22:51 23:03 23:03 23:06 Temp 100.0 100.0 Pulse 57 60 62 Resp 13 B/P (MAP) 133/74 (93) 125/71 (89) Pulse Ox 100 100 100 O2 Delivery Mechanical Ventilator FiO2 70 09/03/20 09/03/20 09/03/20 09/04/20 23:21 23:37 23:51 00:06 Temp 100.2 100.2 100.2 100.0 Pulse 75 93 75 65 Resp 9 63 22 24 B/P (MAP) 116/63 (80) 152/119 (130) 129/69 (89) 136/70 (92) Pulse Ox 100 88 100 100 09/04/20 09/04/20 09/04/20 09/04/20 00:21 00:36 00:51 01:00 Temp 100.0 100.2 100.2 Pulse 80 61 56 55 Resp 35 24 23 22 B/P (MAP) 136/69 (91) 128/71 (90) 131/72 (91) Pulse Ox 99 98 99 100 FiO2 70 09/04/20 09/04/20 09/04/20 09/04/20 01:06 01:21 01:36 01:51 Temp 100.4 100.4 100.4 100.4 Pulse 58 56 56 58 Resp 22 B/P (MAP) 131/75 (93) 132/72 (92) 130/76 (94) 127/73 (91) Pulse Ox 100 100 100 100 09/04/20 09/04/20 09/04/20 09/04/20 02:06 02:21 02:30 02:30 Temp 100.6 100.6 Pulse 68 64 64 64 Resp 18 20 25 25 B/P (MAP) 120/68 (85) 122/67 (85) Pulse Ox 100 100 99 99 FiO2 70 09/04/20 09/04/20 09/04/20 09/04/20 02:30 02:36 02:51 03:06 Temp 100.6 100.8 100.8 Pulse 64 60 66 65 Resp 20 25 19 B/P (MAP) 123/67 (85) 122/69 (86) 120/66 (84) Pulse Ox 100 100 99 100 09/04/20 09/04/20 09/04/20 09/04/20 03:11 03:11 03:21 03:36 Temp 100.8 100.6 Pulse 65 64 63 Resp 21 19 29 B/P (MAP) 126/67 (86) 121/67 (85) Pulse Ox 100 100 99 O2 Delivery Mechanical Ventilator FiO2 70 09/04/20 09/04/20 09/04/20 09/04/20 03:51 04:06 04:21 04:36 Temp 100.4 100.4 100.4 100.4 Pulse 56 55 56 72 Resp 25 8 25 33 B/P (MAP) 128/67 (87) 126/74 (91) 123/69 (87) 113/67 (82) Pulse Ox 99 100 100 97 09/04/20 09/04/20 09/04/20 09/04/20 04:43 04:51 05:06 05:21 Temp 100.2 100.4 100.2 Pulse 60 77 82 68 Resp 25 38 39 32 B/P (MAP) 113/63 (80) 116/71 (86) 112/58 (76) Pulse Ox 100 93 93 92 FiO2 70 09/04/20 09/04/20 09/04/20 09/04/20 05:36 05:51 06:00 06:06 Temp 100.2 100.2 100.2 Pulse 59 58 57 59 Resp 23 B/P (MAP) 121/66 (84) 119/72 (88) 115/66 (82) Pulse Ox 96 97 97 98 FiO2 70 09/04/20 09/04/20 09/04/20 09/04/20 06:21 06:36 08:00 08:00 Temp 100.4 100.4 Pulse 69 74 53 Resp 27 22 B/P (MAP) 110/63 (79) 110/60 (77) Pulse Ox 98 98 100 O2 Delivery Mechanical Ventilator FiO2 70 09/04/20 09/04/20 09/04/20 09/04/20 08:11 08:11 08:11 08:11 Pulse 66 74 66 66 Resp 25 25 Pulse Ox 94 98 94 94 O2 Delivery Mechanical Ventilator FiO2 70 70 09/04/20 09/04/20 09/04/20 09/04/20 10:11 10:26 10:33 10:41 Temp 100.0 100.4 100.4 Pulse 75 71 78 70 Resp 26 B/P (MAP) 101/58 111/60 103/60 Pulse Ox 98 FiO2 80 09/04/20 09/04/20 09/04/20 09/04/20 11:01 11:31 12:00 12:00 Temp 100.3 100.3 Pulse 79 67 53 Resp 22 B/P (MAP) 111/60 109/59 Pulse Ox 100 O2 Delivery Mechanical Ventilator FiO2 80 09/04/20 09/04/20 09/04/20 09/04/20 13:06 13:15 13:21 13:30 Temp 100.4 100.4 100.4 100.2 Pulse 72 76 73 69 Resp 54 42 25 27 B/P (MAP) 121/70 (87) 115/64 (81) Pulse Ox 98 97 97 95 09/04/20 09/04/20 09/04/20 09/04/20 13:36 13:45 13:51 14:00 Temp 100.0 100.0 100.0 100.0 Pulse 68 75 66 71 Resp 30 36 35 48 B/P (MAP) 117/61 (79) 120/72 (88) Pulse Ox 95 95 93 95 09/04/20 09/04/20 09/04/20 09/04/20 14:06 14:09 14:09 14:09 Temp 100.0 Pulse 67 105 105 105 Resp 88 35 35 35 B/P (MAP) 124/60 (81) Pulse Ox 94 94 94 94 FiO2 80 09/04/20 09/04/20 09/04/20 09/04/20 14:15 14:21 14:30 14:36 Temp 100.0 100.0 100.0 99.9 Pulse 67 60 74 62 Resp 28 B/P (MAP) 117/68 (84) 127/70 (89) Pulse Ox 91 92 92 93 09/04/20 09/04/20 09/04/20 09/04/20 14:45 14:51 15:00 15:06 Temp 99.9 99.9 99.7 99.7 Pulse 63 60 68 64 Resp 22 96 22 22 B/P (MAP) 121/66 (84) 122/68 (86) Pulse Ox 96 98 99 100 09/04/20 09/04/20 09/04/20 09/04/20 15:15 15:21 15:36 15:45 Temp 99.7 99.7 99.5 99.5 Pulse 61 59 57 57 Resp 22 22 22 22 B/P (MAP) 122/69 (86) 118/72 (87) Pulse Ox 100 100 100 100 09/04/20 09/04/20 09/04/20 09/04/20 15:51 16:00 16:00 16:00 Temp 99.5 99.5 Pulse 56 53 58 Resp 26 22 23 B/P (MAP) 117/68 (84) Pulse Ox 100 100 100 O2 Delivery Mechanical Ventilator FiO2 80 09/04/20 09/04/20 09/04/20 09/04/20 16:06 16:15 16:21 16:30 Temp 99.3 99.3 99.3 99.5 Pulse 68 77 80 73 Resp 27 26 33 37 B/P (MAP) 136/75 (95) 131/67 (88) Pulse Ox 99 97 96 96 09/04/20 09/04/20 09/04/20 09/04/20 16:36 16:45 16:45 16:51 Temp 99.5 99.5 99.5 Pulse 73 74 80 69 Resp 38 22 22 22 B/P (MAP) 132/76 (94) 119/68 (85) Pulse Ox 95 96 95 96 FiO2 80 09/04/20 09/04/20 09/04/20 09/04/20 17:00 17:06 17:15 17:21 Temp 99.5 99.5 99.5 99.5 Pulse 65 66 61 63 Resp 22 B/P (MAP) 121/72 (88) 119/71 (87) Pulse Ox 96 97 98 98 09/04/20 09/04/20 09/04/20 09/04/20 17:30 17:36 17:45 17:51 Temp 99.5 99.3 99.3 99.3 Pulse 59 57 56 55 Resp 22 B/P (MAP) 115/68 (84) 116/71 (86) Pulse Ox 99 99 99 99 09/04/20 09/04/20 09/04/20 09/04/20 19:00 19:00 19:06 19:21 Temp 98.6 98.6 Pulse 50 50 52 Resp 22 B/P (MAP) 120/68 (85) 127/67 (87) Pulse Ox 100 98 98 O2 Delivery Mechanical Ventilator FiO2 80 09/04/20 09/04/20 09/04/20 09/04/20 19:36 19:51 20:00 20:00 Temp 98.6 98.6 Pulse 50 52 50 50 Resp 22 22 B/P (MAP) 120/75 (90) 115/65 (82) Pulse Ox 99 99 98 98 O2 Delivery Mechanical Ventilator FiO2 80 80 09/04/20 09/04/20 09/04/2009/04/20 20:00 20:00 20:06 20:21 Temp 98.6 98.4 Pulse 50 50 53 51 Resp 22 B/P (MAP) 113/66 (82) 112/68 (83) Pulse Ox 98 98 98 98 09/04/20 09/04/20 09/04/20 09/04/20 20:36 20:51 21:06 21:21 Temp 98.4 98.2 98.2 98.1 Pulse 51 51 78 62 Resp 22 B/P (MAP) 110/63 (79) 109/66 (80) 112/71 (85) 105/60 (75) Pulse Ox 98 99 99 97 09/04/20 09/04/20 09/04/20 09/04/20 21:36 21:51 22:06 22:12 Temp 98.1 98.1 98.1 Pulse 68 63 61 54 Resp 22 B/P (MAP) 119/63 (81) 117/69 (85) 121/68 (85) Pulse Ox 96 92 92 99 FiO2 80 09/04/20 09/04/20 09/04/20 09/04/20 22:21 22:36 22:51 23:00 Temp 98.1 98.1 98.2 Pulse 62 63 60 60 Resp 23 B/P (MAP) 121/69 (86) 132/73 (92) 117/66 (83) Pulse Ox 92 97 97 100 FiO2 80 09/04/20 09/04/20 09/04/20 09/04/20 23:00 23:06 23:21 23:36 Temp 98.2 98.2 98.4 Pulse 59 57 57 Resp 22 B/P (MAP) 115/68 (84) 111/68 (82) 112/63 (79) Pulse Ox 97 98 98 O2 Delivery Mechanical Ventilator 09/04/20 09/05/20 09/05/20 09/05/20 23:51 00:06 00:21 00:36 Temp 98.4 98.2 98.2 98.2 Pulse 56 56 58 58 Resp 24 B/P (MAP) 107/64 (78) 111/66 (81) 111/62 (78) 108/61 (77) Pulse Ox 97 96 95 93 09/05/20 09/05/20 09/05/20 09/05/20 00:51 01:07 01:21 01:24 Temp 98.2 98.4 Pulse 57 81 99 84 Resp B/P (MAP) 108/68 (81) 106/59 (75) 105/67 (80) Pulse Ox 92 95 82 95 FiO2 80 09/05/20 09/05/20 09/05/20 09/05/20 01:36 01:51 02:06 02:21 Temp 98.6 99.0 99.1 Pulse 83 89 88 84 Resp B/P (MAP) 112/57 (75) 120/62 (81) 114/60 (78) 113/60 (77) Pulse Ox 93 92 92 91 09/05/20 09/05/20 09/05/20 09/05/20 02:36 02:51 03:00 03:00 Temp 99.3 99.5 Pulse 89 90 88 88 Resp B/P (MAP) 117/62 (80) 122/57 (78) Pulse Ox 91 90 92 92 FiO2 80 09/05/20 09/05/20 09/05/20 09/05/20 03:00 03:00 03:00 03:06 Temp 99.7 Pulse 80 88 85 Resp B/P (MAP) 130/71 (90) Pulse Ox 88 94 88 O2 Delivery Mechanical Ventilator FiO2 80 09/05/20 09/05/20 09/05/20 09/05/20 03:21 03:36 03:51 03:51 Temp 99.7 99.7 99.7 99.7 Pulse 87 108 87 87 Resp B/P (MAP) 115/65 (82) 122/68 (86) 115/67 (83) 115/67 (83) Pulse Ox 91 93 93 93 09/05/20 09/05/20 09/05/20 09/05/20 04:06 04:21 04:36 04:51 Temp 99.9 100.0 100.2 98.2 Pulse 88 93 91 91 Resp B/P (MAP) 116/64 (81) 117/62 (80) 116/67 (83) 121/68 (85) Pulse Ox 94 94 93 94 09/05/20 09/05/20 09/05/20 09/05/20 05:06 05:21 05:36 05:51 Temp 100.2 100.0 100.2 100.2 Pulse 90 98 98 89 Resp B/P (MAP) 120/72 (88) 124/73 (90) 127/72 (90) 125/66 (85) Pulse Ox 95 95 95 95 09/05/20 09/05/20 09/05/20 09/05/20 06:06 06:21 06:31 06:36 Temp 100.4 100.4 100.0 Pulse 91 93 97 95 Resp B/P (MAP) 128/68 (88) 123/71 (88) 125/69 (87) Pulse Ox 95 95 94 94 FiO2 80 09/05/20 09/05/20 09/05/20 09/05/20 06:51 07:00 07:06 07:15 Temp 100.4 100.4 100.4 100.4 Pulse 93 93 94 93 Resp B/P (MAP) 116/70 (85) 128/69 (88) Pulse Ox 95 95 95 95 09/05/20 09/05/20 09/05/20 09/05/20 07:21 07:30 07:36 07:45 Temp 100.4 100.4 100.4 100.4 Pulse 91 92 95 95 Resp B/P (MAP) 133/74 (93) 140/76 (97) Pulse Ox 95 95 95 94 09/05/20 09/05/20 09/05/20 09/05/20 07:51 08:00 08:00 08:06 Temp 100.6 100.6 100.6 Pulse 97 100 100 99 Resp 28 B/P (MAP) 135/70 (91) 128/74 (92) Pulse Ox 94 93 94 94 FiO2 80 09/05/20 09/05/20 09/05/20 09/05/20 08:15 08:21 08:30 08:36 Temp 100.8 100.8 100.8 100.8 Pulse 109 125 113 105 Resp 36 57 36 32 B/P (MAP) 161/82 (108) 136/66 (89) Pulse Ox 93 83 91 91 1109/05/20 09/05/20 09/05/20 08:45 08:51 09:00 09:00 Temp 100.8 100.8 Pulse 107 107 96 107 Resp 34 37 24 37 B/P (MAP) 126/72 (90) Pulse Ox 91 91 94 94 O2 Delivery Mechanical Ventilator FiO2 80 09/05/20 09/05/20 09/05/20 09/05/20 09:00 09:00 09:19 09:45 Pulse 96 96 Resp 24 24 Pulse Ox 94 94 O2 Delivery Mechanical Ventilator FiO2 80 90 09/05/20 09/05/20 09/05/20 09/05/20 10:36 10:45 10:51 11:00 Temp 100.9 100.9 100.9 100.9 Pulse 104 105 104 105 Resp 25 29 31 30 B/P (MAP) 146/74 (98) 141/75 (97) Pulse Ox 92 93 93 94 09/05/20 09/05/20 09/05/20 09/05/20 11:06 11:15 11:21 11:30 Temp 100.9 100.9 100.9 101.1 Pulse 104 107 106 119 Resp 29 30 32 33 B/P (MAP) 139/76 (97) 143/73 (96) Pulse Ox 94 93 93 93 09/05/20 09/05/20 09/05/20 09/05/20 11:36 11:45 11:51 12:00 Temp 101.1 101.1 101.1 Pulse 127 118 116 Resp 38 34 25 B/P (MAP) 129/77 (94) 135/72 (93) Pulse Ox 93 92 93 O2 Delivery Mechanical Ventilator 09/05/20 09/05/20 09/05/20 09/05/20 12:00 12:06 12:14 12:15 Temp 101.1 Pulse 110 107 105 Resp 34 37 24 B/P (MAP) 156/97 (116) Pulse Ox 94 83 94 92 FiO2 90 09/05/20 09/05/20 09/05/20 09/05/20 12:21 12:30 12:30 12:36 Pulse 103 109 99 101 Resp 64 39 32 27 B/P (MAP) 134/78 (96) 131/73 (92) Pulse Ox 84 92 93 FiO2 90 09/05/20 09/05/20 09/05/2009/05/20 12:45 12:51 13:00 13:06 Pulse 114 103 100 98 Resp 22 B/P (MAP) 133/75 (94) 131/73 (92) Pulse Ox 94 94 96 97 09/05/20 09/05/20 09/05/20 09/05/20 13:21 13:36 13:51 13:52 Pulse 93 95 95 107 Resp 22 B/P (MAP) 131/78 (95) 134/79 (97) 123/73 (90) Pulse Ox 97 97 98 97 FiO2 90 09/05/20 09/05/20 09/05/20 09/05/20 14:06 14:22 14:36 14:51 Temp 64.0 Pulse 88 76 75 Resp B/P (MAP) 120/78 (92) 108/70 (83) 113/65 (81) 113/70 (84) Pulse Ox 97 85 93 94 09/05/20 09/05/20 09/05/20 09/05/20 15:00 15:06 15:06 15:15 Temp 99.7 99.7 99.7 99.5 Pulse 73 78 78 61 Resp 25 43 43 23 B/P (MAP) 113/74 (87) 113/74 (87) Pulse Ox 94 89 89 96 09/05/20 09/05/20 09/05/20 09/05/20 15:21 15:21 15:30 15:34 Temp 99.5 99.5 99.3 Pulse 59 59 60 67 Resp 22 23 B/P (MAP) 114/65 (81) 114/65 (81) Pulse Ox 97 97 98 94 09/05/20 09/05/20 09/05/20 09/05/20 15:35 15:36 15:36 15:45 Temp 99.3 99.3 Pulse 67 67 59 59 Resp 22 B/P (MAP) 114/70 (85) Pulse Ox 94 94 98 98 FiO2 90 09/05/20 09/05/20 09/05/20 09/05/20 15:51 16:00 16:00 16:06 Temp 99.3 99.3 99.3 Pulse 59 60 62 Resp 22 B/P (MAP) 115/70 (85) 120/75 (90) Pulse Ox 99 99 99 O2 Delivery Mechanical Ventilator 09/05/20 09/05/20 09/05/20 09/05/20 16:17 18:09 19:00 19:06 Temp 99.7 99.7 Pulse 99 67 64 65 Resp 32 22 22 B/P (MAP) 122/71 (88) Pulse Ox 92 89 93 93 FiO2 90 90 09/05/20 09/05/20 09/05/20 09/05/20 19:15 19:21 19:30 19:36 Temp 99.7 99.7 99.7 99.7 Pulse 66 66 65 64 Resp 27 B/P (MAP) 119/71 (87) 120/63 (82) Pulse Ox 92 91 91 89 09/05/20 09/05/20 09/05/20 09/05/20 19:45 19:51 20:00 20:00 Temp 99.5 99.5 99.5 Pulse 63 62 60 Resp 25 B/P (MAP) 119/74 (89) Pulse Ox 87 88 88 O2 Delivery Mechanical Ventilator 09/05/20 09/05/20 09/05/20 09/05/20 20:00 20:06 20:15 20:21 Temp 99.5 99.5 99.5 Pulse 59 57 57 59 Resp 22 B/P (MAP) 124/70 (88) 119/67 (84) Pulse Ox 91 89 89 90 FiO2 90 09/05/20 09/05/20 09/05/20 09/05/20 20:21 20:36 20:51 21:00 Temp 99.5 99.5 99.5 Pulse 59 59 61 63 Resp 22 22 B/P (MAP) 119/67 (84) 118/69 (85) 115/71 (86) Pulse Ox 90 92 92 92 FiO2 90 09/05/20 09/05/20 09/05/20 09/05/20 21:00 21:00 21:00 21:06 Temp 99.5 Pulse 63 63 66 61 Resp 22 B/P (MAP) 117/70 (86) Pulse Ox 92 92 90 92 O2 Delivery Mechanical Ventilator FiO2 90 09/05/20 09/05/20 09/05/20 09/05/20 21:21 21:36 21:51 22:06 Temp 99.5 99.5 99.3 99.3 Pulse 59 69 66 70 Resp 22 B/P (MAP) 115/64 (81) 108/58 (75) 112/59 (76) 107/60 (76) Pulse Ox 92 90 91 89 09/05/20 09/05/20 09/05/20 09/05/20 22:21 22:36 22:51 23:06 Temp 99.3 99.1 99.1 99.1 Pulse 67 69 66 66 Resp 23 B/P (MAP) 109/57 (74) 113/67 (82) 109/62 (78) 105/60 (75) Pulse Ox 88 86 91 91 09/05/20 09/05/20 09/05/20 09/06/20 23:21 23:36 23:51 00:00 Temp 99.1 99.1 99.1 Pulse 63 60 60 59 Resp 22 B/P (MAP) 105/63 (77) 107/64 (78) 110/63 (79) Pulse Ox 92 92 92 91 FiO2 90 09/06/20 09/06/20 09/06/20 09/06/20 00:00 00:06 00:21 00:21 Temp 99.1 99.1 99.1 Pulse 58 59 59 Resp 23 B/P (MAP) 113/70 (84) 114/69 (84) 114/69 (84) Pulse Ox 92 90 90 O2 Delivery Mechanical Ventilator 09/06/20 09/06/20 09/06/20 09/06/20 00:36 00:51 01:06 01:20 Temp 99.1 99.1 99.1 Pulse 60 58 59 58 Resp 22 B/P (MAP) 115/67 (83) 114/64 (81) 111/65 (80) Pulse Ox 89 90 91 91 FiO2 90 09/06/20 09/06/20 09/06/20 09/06/20 01:21 01:36 01:51 02:06 Temp 99.3 99.3 99.3 99.3 Pulse 62 59 59 59 Resp 22 B/P (MAP) 107/61 (76) 108/57 (74) 108/65 (79) 105/61 (76) Pulse Ox 90 91 91 91 09/06/20 09/06/20 09/06/20 09/06/20 02:21 02:36 02:51 03:00 Temp 99.3 99.3 99.3 Pulse 60 59 59 56 Resp 22 22 10 22 B/P (MAP) 109/59 (76) Pulse Ox 90 89 89 90 09/06/20 09/06/20 09/06/20 09/06/20 03:00 03:06 04:00 04:00 Temp 99.3 Pulse 57 68 60 Resp 22 23 22 Pulse Ox 90 78 90 O2 Delivery Mechanical Ventilator FiO2 90 09/06/20 09/06/20 09/06/20 09/06/20 04:48 07:00 07:30 08:00 Temp 98.4 98.6 98.8 Pulse 56 53 56 72 Resp 22 22 B/P (MAP) 116/66 (83) 115/65 (82) 101/58 (72) Pulse Ox 90 91 91 74 FiO2 90 09/06/20 09/06/20 09/06/20 09/06/20 08:00 08:00 08:14 08:15 Temp 99.0 99.0 Pulse 60 95 84 Resp 28 18 B/P (MAP) 126/70 (88) Pulse Ox 90 79 85 O2 Delivery Mechanical Ventilator FiO2 100 09/06/20 09/06/20 09/06/20 09/06/20 08:30 09:00 09:15 09:21 Temp 99.3 100.2 100.4 Pulse 86 91 55 Resp 22 32 22 B/P (MAP) 134/62 (86) 135/62 (86) 144/68 (93) Pulse Ox 83 84 73 91 09/06/20 09/06/20 09/06/20 09/06/20 09:25 09:31 09:32 09:47 Pulse 55 55 55 55 Resp 22 22 22 22 Pulse Ox 91 91 91 91 O2 Delivery Mechanical Ventilator FiO2 90 100 09/06/20 09/06/20 09/06/20 09/06/20 10:00 10:01 10:14 10:15 Pulse 84 78 78 78 Resp 22 21 22 22 B/P (MAP) 93/51 (65) 88/49 (62) 103/54 (70) Pulse Ox 88 88 91 91 09/06/20 09/06/20 09/06/20/26/20 10:29 10:30 11:00 11:15 Pulse 80 80 83 80 Resp 23 22 22 22 B/P (MAP) 112/59 (76) 126/68 (87) Pulse Ox 93 93 95 95 09/06/20 09/06/20 09/06/20 09/06/20 11:21 11:30 12:00 12:00 Pulse 87 84 60 Resp 22 22 22 B/P (MAP) 126/67 (86) Pulse Ox 95 96 90 O2 Delivery Mechanical Ventilator FiO2 100 100 09/06/20 09/06/20 09/06/20 09/06/20 12:00 12:30 12:45 12:59 Temp 101.3 101.1 Pulse 87 73 77 77 Resp 22 23 22 22 B/P (MAP) 102/54 (70) 94/53 (67) 97/57 (70) Pulse Ox 97 96 96 96 09/06/20 09/06/20 09/06/20 09/06/20 13:00 13:14 13:15 13:29 Temp 101.1 100.9 100.9 100.8 Pulse 76 70 70 69 Resp 22 22 23 B/P (MAP) 99/59 (72) 99/58 (72) Pulse Ox 97 97 98 98 09/06/20 09/06/20 09/06/20 09/06/20 13:30 14:00 15:41 15:42 Temp 100.8 100.6 Pulse 67 64 61 61 Resp 22 22 22 22 B/P (MAP) 125/66 (85) Pulse Ox 99 99 99 99 FiO2 100 09/06/20 09/06/20 09/06/20 09/06/20 15:44 15:44 16:00 19:00 Temp 99.5 Pulse 61 61 60 53 Resp 22 22 22 22 Pulse Ox 99 99 90 100 O2 Delivery Mechanical Ventilator FiO2 100 100 09/06/20 09/06/20 09/06/20 09/06/20 19:14 19:15 19:30 19:30 Temp 99.3 99.3 Pulse 61 63 69 67 Resp 23 25 22 22 B/P (MAP) 111/59 (76) Pulse Ox 98 100 99 97 FiO2 100 09/06/20 09/06/20 09/06/20 09/06/20 19:30 19:30 19:44 19:45 Temp 99.3 99.5 99.5 Pulse 69 67 67 69 Resp B/P (MAP) 102/47 (65) 104/59 (74) Pulse Ox 99 97 98 99 09/06/20 09/06/20 09/06/20 09/06/20 19:59 20:00 20:00 20:00 Temp 99.7 99.7 Pulse 86 60 80 Resp B/P (MAP) 107/62 (77) Pulse Ox 88 90 95 O2 Delivery Mechanical Ventilator FiO2 100 09/06/20 09/06/20 09/06/20 09/06/20 20:14 20:15 21:59 22:00 Temp 99.7 99.7 99.5 99.5 Pulse 70 71 56 57 Resp B/P (MAP) 114/61 (78) 99/55 (70) Pulse Ox 100 100 100 100 09/06/20 09/06/20 09/06/20 09/06/20 22:14 22:15 22:29 22:30 Temp 99.3 99.3 99.3 99.3 Pulse 56 56 54 53 Resp B/P (MAP) 104/51 (68) 100/57 (71) Pulse Ox 100 100 100 100 09/06/20 09/06/20 09/06/20 09/06/20 22:44 22:45 22:59 23:00 Temp 99.3 99.3 99.3 99.3 Pulse 54 52 52 52 Resp B/P (MAP) 101/56 (71) 104/58 (73) Pulse Ox 100 100 100 100 09/06/20 09/06/20 09/06/20 09/06/20 23:01 23:14 23:15 23:29 Temp 99.3 99.3 99.3 Pulse 55 52 52 54 Resp 23 B/P (MAP) 103/56 (72) 117/67 (84) Pulse Ox 100 100 100 100 FiO2 100 09/06/20 09/06/20 09/06/20 09/07/20 23:30 23:45 23:59 00:00 Temp 99.3 99.3 99.3 Pulse 54 61 66 Resp B/P (MAP) 101/54 (70) 110/55 (73) Pulse Ox 100 100 100 O2 Delivery Mechanical Ventilator 09/07/20 09/07/20 09/07/20 09/07/20 00:00 00:00 00:14 00:15 Temp 99.3 99.5 99.5 Pulse 60 65 59 61 Resp B/P (MAP) 104/55 (71) Pulse Ox 90 100 100 100 FiO2 100 09/07/20 09/07/20 09/07/20 09/07/20 01:45 01:58 02:00 02:09 Temp 99.5 99.5 Pulse 79 79 56 Resp B/P (MAP) 139/73 (95) Pulse Ox 100 90 100 FiO2 100 09/07/20 09/07/20 09/07/20 09/07/20 02:13 02:15 02:28 02:30 Temp 99.5 99.5 99.5 99.5 Pulse 83 82 73 70 Resp B/P (MAP) 131/64 (86) 123/64 (83) Pulse Ox 92 92 94 94 09/07/20 09/07/20 09/07/20 09/07/20 02:43 02:45 02:53 02:58 Temp 99.5 99.5 99.7 Pulse 73 70 69 Resp B/P (MAP) 114/68 (83) 116/65 (82) Pulse Ox 95 95 93 94 09/07/20 09/07/20 09/07/20 09/07/20 03:00 03:14 03:15 03:29 Temp 99.7 99.7 99.7 99.7 Pulse 70 64 66 75 Resp Pulse Ox 94 94 94 92 09/07/20 09/07/20 09/07/20 09/07/20 03:30 03:43 03:45 03:58 Temp 99.7 99.7 99.7 99.7 Pulse 74 74 74 83 Resp 22 B/P (MAP) 114/63 (80) 100/61 (74) Pulse Ox 93 93 92 96 09/07/20 09/07/20 09/07/20 09/07/20 04:00 04:00 04:00 05:04 Temp 99.7 Pulse 76 60 71 Resp 22 22 22 Pulse Ox 96 90 92 O2 Delivery Mechanical Ventilator FiO2 100 09/07/20 09/07/20 09/07/20 09/07/20 05:04 05:04 07:00 07:13 Temp 100.0 100.0 Pulse 73 71 63 62 Resp 22 22 22 22 B/P (MAP) 100/59 (73) Pulse Ox 97 92 98 98 FiO2 100 09/07/20 09/07/20 09/07/20 09/07/20 07:15 07:28 07:28 07:43 Temp 100.0 100.0 100.0 100.0 Pulse 63 61 61 61 Resp 22 22 22 23 B/P (MAP) 107/67 (80) 107/67 (80) 101/62 (75) Pulse Ox 98 97 97 99 09/07/20 09/07/20 09/07/20 09/07/20 07:58 08:00 08:13 08:28 Temp 100.2 100.2 100.2 Pulse 67 24 89 102 Resp 29 B/P (MAP) 102/57 (72) 109/63 (78) 132/69 (90) Pulse Ox 98 92 97 79 FiO2 100 09/07/20 09/07/20 09/07/20 09/07/20 08:43 08:45 08:45 08:45 Pulse 91 86 86 86 Resp 29 29 29 B/P (MAP) 117/63 (81) Pulse Ox 91 100 97 97 FiO2 100 09/07/20 09/07/20 09/07/20 09/07/20 08:45 08:58 09:13 09:28 Pulse 86 87 85 85 Resp 29 32 22 22 B/P (MAP) 108/64 (79) 110/58 (75) 97/54 (68) Pulse Ox 97 94 97 97 O2 Delivery Mechanical Ventilator FiO2 100 09/07/20 09/07/20 09/07/20 09/07/20 09:30 09:43 09:44 09:45 Pulse 81 85 86 Resp 22 22 22 B/P (MAP) 105/54 (71) Pulse Ox 97 97 97 O2 Delivery Mechanical Ventilator 09/07/20 09/07/20 09/07/20 09/07/20 09:58 10:00 10:13 10:15 Pulse 86 89 91 92 Resp 22 22 24 24 B/P (MAP) 101/49 (66) 115/53 (73) Pulse Ox 98 97 98 98 09/07/20 09/07/20 09/07/20 09/07/20 10:29 10:30 10:35 10:43 Pulse 86 85 83 79 Resp B/P (MAP) 99/45 (63) 92/40 (57) Pulse Ox 93 93 93 92 09/07/20 09/07/20 09/07/20 09/07/20 10:45 10:59 11:00 11:13 Temp 100.4 100.4 Pulse 79 71 77 Resp B/P (MAP) 121/53 (75) 108/60 (76) Pulse Ox 93 90 90 92 09/07/20 09/07/20 09/07/20 09/07/20 11:15 11:28 11:43 11:45 Temp 100.4 100.4 100.4 100.4 Pulse 78 76 65 66 Resp B/P (MAP) 107/56 (73) 104/59 (74) Pulse Ox 92 92 94 94 09/07/20 09/07/20 09/07/20 09/07/20 11:58 12:00 12:10 12:12 Temp 100.4 100.4 Pulse 62 61 61 Resp B/P (MAP) 105/59 (74) Pulse Ox 95 96 96 O2 Delivery Mechanical Ventilator FiO2 100 09/07/20 09/07/20 09/07/20 09/07/20 12:13 12:15 12:28 12:30 Temp 100.4 100.4 100.2 100.2 Pulse 60 59 61 61 Resp B/P (MAP) 104/62 (76) 107/62 (77) Pulse Ox 97 97 97 97 09/07/20 09/07/20 09/07/20 09/07/20 12:43 12:45 12:58 13:00 Temp 100.2 100.2 100.2 100.2 Pulse 58 58 56 56 Resp B/P (MAP) 108/59 (75) 107/64 (78) Pulse Ox 98 98 99 99 09/07/20 09/07/20 09/07/20 09/07/20 13:13 13:15 13:24 13:28 Temp 100.0 100.0 100.0 Pulse 57 56 66 58 Resp 22 B/P (MAP) 103/62 (76) 104/63 (77) Pulse Ox 98 98 93 97 FiO2 100 09/07/20 09/07/20 09/07/20 09/07/20 13:30 13:43 13:45 13:58 Temp 100.0 100.0 100.0 99.9 Pulse 57 56 58 56 Resp 22 B/P (MAP) 107/62 (77) 107/62 (77) Pulse Ox 98 98 98 98 09/07/20 09/07/20 09/07/20 09/07/20 14:00 14:13 14:15 14:28 Temp 99.9 99.9 99.9 99.9 Pulse 56 55 55 55 Resp B/P (MAP) 104/64 (77) 104/61 (75) Pulse Ox 98 98 97 97 09/07/20 09/07/20 09/07/20 09/07/20 14:30 14:45 14:59 15:00 Temp 99.9 99.7 99.7 99.7 Pulse 55 55 54 55 Resp B/P (MAP) 102/64 (77) Pulse Ox 97 97 97 97 09/07/20 09/07/20 09/07/20 09/07/20 15:15 15:29 15:30 15:45 Temp 99.7 99.7 99.7 99.5 Pulse 55 54 54 54 Resp B/P (MAP) 108/64 (79) Pulse Ox 97 98 98 97 09/07/20 09/07/20 09/07/20 09/07/20 15:59 16:00 16:15 16:19 Temp 99.5 99.5 99.5 Pulse 53 55 53 55 Resp B/P (MAP) 104/62 (76) Pulse Ox 97 97 97 97 09/07/20 09/07/20 09/07/20 09/07/20 16:19 16:19 16:29 16:30 Temp 99.3 99.3 Pulse 55 55 52 53 Resp 22 B/P (MAP) 100/58 (72) Pulse Ox 97 97 96 97 FiO2 100 09/07/20 09/07/20 09/07/20 09/07/20 16:30 16:40 16:45 16:59 Temp 99.3 99.3 99.3 Pulse 53 55 55 52 Resp B/P (MAP) 106/61 (76) Pulse Ox 97 97 97 95 FiO2 100 09/07/20 09/07/20 09/07/20 09/07/20 17:00 17:15 17:29 17:30 Temp 99.3 99.1 99.1 99.1 Pulse 53 71 57 57 Resp B/P (MAP) 108/58 (75) Pulse Ox 94 85 96 97 09/07/20 09/07/20 09/07/20 09/07/20 17:37 17:45 17:59 18:00 Temp 99.1 99.1 99.1 Pulse 57 54 54 Resp B/P (MAP) 103/60 (74) Pulse Ox 98 97 98 O2 Delivery Mechanical Ventilator 09/07/20 09/07/20 09/07/20 09/07/20 19:00 19:15 19:29 19:30 Temp 99.0 99.0 99.0 99.0 Pulse 51 52 55 53 Resp B/P (MAP) 119/68 (85) Pulse Ox 98 98 96 95 09/07/20 09/07/20 09/07/20 09/07/20 19:45 20:00 20:00 20:00 Temp 99.0 99.0 Pulse 60 53 60 Resp Pulse Ox 93 95 90 O2 Delivery Mechanical Ventilator FiO2 100 09/07/20 09/07/20 09/07/20 09/07/20 20:15 20:15 20:23 20:29 Temp 99.0 99.0 99.0 Pulse 53 52 54 57 Resp B/P (MAP) 110/62 (78) 108/58 (75) Pulse Ox 95 95 98 99 O2 Delivery Mechanical Ventilator FiO2 100 09/07/20 09/07/20 09/07/20 09/07/20 20:30 20:59 21:02 21:02 Temp 99.0 Pulse 58 52 56 52 Resp Pulse Ox 99 95 95 95 FiO2 100 11/09/07/20 09/07/20 09/07/20 22:30 22:45 22:59 23:00 Temp 99.0 99.1 99.1 99.1 Pulse 56 57 57 55 Resp B/P (MAP) 113/60 (77) Pulse Ox 96 97 97 97 09/07/20 09/07/20 09/07/20 09/07/20 23:15 23:29 23:30 23:45 Temp 99.1 99.1 99.1 99.3 Pulse 58 57 57 58 Resp 23 B/P (MAP) 119/65 (83) Pulse Ox 97 96 96 97 09/07/20 09/07/20 09/08/20 09/08/20 23:58 23:59 00:00 00:00 Temp 99.3 99.3 Pulse 61 60 59 60 Resp B/P (MAP) 113/61 (78) Pulse Ox 96 97 97 90 FiO2 100 100 09/08/20 09/08/20 09/08/20 09/08/20 00:15 00:29 00:30 00:45 Temp 99.3 99.3 99.3 99.3 Pulse 62 68 63 68 Resp B/P (MAP) 128/65 (86) Pulse Ox 97 97 96 97 09/08/20 09/08/20 09/08/20 09/08/20 00:59 01:00 01:15 01:29 Temp 99.5 99.5 99.7 99.7 Pulse 75 74 70 68 Resp B/P (MAP) 133/70 (91) 117/62 (80) Pulse Ox 99 99 97 95 09/08/20 09/08/20 09/08/20 09/08/20 01:30 02:00 02:15 02:30 Temp 99.7 99.9 99.9 99.9 Pulse 70 65 60 63 Resp 17 56 Pulse Ox 97 94 95 94 09/08/20 09/08/20 09/08/20 09/08/20 02:45 03:00 03:13 03:15 Temp 99.7 99.0 99.9 99.9 Pulse 58 82 Resp 21 B/P (MAP) 147/68 (94) Pulse Ox 96 97 93 98 09/08/20 09/08/20 09/08/20 09/08/20 03:20 03:30 03:43 03:45 Temp 99.9 99.7 Pulse 61 83 74 63 Resp B/P (MAP) 142/78 (99) Pulse Ox 96 93 92 97 09/08/20 09/08/20 09/08/20 09/08/20 03:45 04:00 04:00 04:13 Temp 99.7 99.7 99.9 Pulse 78 66 60 56 Resp B/P (MAP) 131/75 (93) Pulse Ox 92 97 90 97 FiO2 100 09/08/20 09/08/20 09/08/20 09/08/20 04:15 04:30 04:42 04:45 Temp 99.9 99.7 99.9 99.9 Pulse 57 54 53 52 Resp B/P (MAP) 124/75 (91) Pulse Ox 98 99 99 99 09/08/20 09/08/20 09/08/20 09/08/20 04:57 05:00 05:12 05:15 Temp 99.9 99.9 99.9 Pulse 62 53 54 54 Resp B/P (MAP) 119/75 (90) Pulse Ox 97 99 100 100 FiO2 100 09/08/20 09/08/20 09/08/20 09/08/20 07:00 07:12 07:30 07:30 Temp 99.9 99.9 100.0 Pulse 58 59 60 58 Resp B/P (MAP) 126/73 (90) Pulse Ox 98 98 99 98 FiO2 100 09/08/20 09/08/20 09/08/20 09/08/20 07:42 07:45 08:00 08:00 Temp 100.0 100.0 100.0 Pulse 63 60 65 Resp B/P (MAP) 125/69 (87) Pulse Ox 99 99 98 O2 Delivery Mechanical Ventilator 09/08/20 09/08/20 09/08/20 09/08/20 08:12 08:15 08:30 08:42 Temp 100.0 100.0 100.0 100.2 Pulse 63 67 86 68 Resp B/P (MAP) 131/71 (91) 139/86 (103) Pulse Ox 98 99 95 95 09/08/20 09/08/20 09/08/20 09/08/20 08:45 08:46 08:47 08:48 Temp 100.2 Pulse 68 59 59 59 Resp 29 23 23 Pulse Ox 95 98 98 98 FiO2 100 09/08/20 09/08/20 09/08/20 09/08/20 08:49 09:00 09:12 09:15 Temp 100.2 100.2 100.2 Pulse 59 70 65 74 Resp 23 28 29 32 B/P (MAP) 136/74 (94) Pulse Ox 98 93 93 94 O2 Delivery Mechanical Ventilator FiO2 100 09/08/20 09/08/20 09/08/20 09/08/20 09:30 09:42 09:45 10:00 Temp 100.4 100.4 100.4 100.6 Pulse 81 86 90 76 Resp 31 34 34 36 B/P (MAP) 137/66 (89) Pulse Ox 94 92 92 92 09/08/20 09/08/20 09/08/20 09/08/20 10:12 10:15 10:30 10:42 Temp 100.6 100.6 100.6 100.6 Pulse 77 77 81 73 Resp 33 38 34 22 B/P (MAP) 124/60 (81) 123/67 (85) Pulse Ox 93 92 93 96 09/08/20 10:45 Temp 100.6 Pulse 66 Resp 22 Pulse Ox 96 Intake and Output 09/08/20 06:00 Intake Total 180 ml Output Total 625 ml Balance -445 ml LABS LAB RESULTS labs and radiology reviewed VTE VTE Risk Total Score: 2 VTE Risk Score VTE Risk: Score 0-1 = Low Risk (Aggressive mobilization; early ambulation; no VTE prophylaxis required) Score 2: Moderate Risk (Intermittent/Pneumatic Compression Device OR Lovenox/Heparin/Coumadin) Score 3-4: High Risk (Intermittent/Pneumatic Compression Device AND Lovenox/Heparin/Coumadin) Score > or =5: Highest Risk (Intermittent/Pneumatic Compression Device AND Lovenox/Heparin/Coumadin) Antico:Hep/LMWH/Coum/Xarelto: Yes VTE VTE Present on Admission: No Currently receiving anticoagul: Yes VTE Risk Total Score: 2 Assessment/Plan Assessment/Plan Assessment/Plan Anticoagulation Stress ulcer prophylaxis Vent support, proning, Follow ABG Check urine culture Zosyn for broader antibiotic coverage given increasing WBC Problems: (1) ARDS (adult respiratory distress syndrome) ICD Code: J80 - Acute respiratory distress syndrome SNOMED: 23701507, 47387854 (2) Pneumonia due to COVID-19 virus Status: Acute ICD Code: U07.1 - COVID-19; J12.89 - Other viral pneumonia SNOMED: 498995595886961098 (3) Diabetes mellitus ICD Code: E11.9 - Type 2 diabetes mellitus without complications SNOMED: 77570175 (4) SIRS (systemic inflammatory response syndrome) ICD Code: R65.10 - Systemic inflammatory response syndrome (SIRS) of non- infectious origin without acute organ dysfunction SNOMED: 232632434 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 Video assessment performed with HIPAA compliant technology. Duration Duration or Time Spent with Pa: 60 mins ANGELIQUE COOK MD Sep 08, 2020 11:21
--- NOTE | 2020-09-08 11:26 | DIREP ---
PROCEDURE:CHEST 1 VIEW COMPARISON:[facility], CR, XRAY CHEST SINGLE VW, 09/06/2020, 08:24 AM. [facility], CR, XRAY CHEST SINGLE VW, 09/04/2020, 07:26 AM. INDICATIONS:COVID PNA, Intubation FINDINGS: LUNGS/PLEURA:Endotracheal tube is again high riding terminating approximately 7.5 cm from the chuy. More confluent opacities are seen in bilateral lungs. Scattered adjacent ground-glass opacities. No large pleural effusion. CARDIAC:Normal cardiac silhouette and normal pulmonary vascularity. MEDIASTINUM:No visible mass or adenopathy. BONES:Thoracic spondylosis. OTHER:NGT with side hole projecting over the gastric bubble. Possible left midline catheter. CONCLUSION: 1. Worsened confluent opacities in bilateral lungs compatible with worsening COVID-19 pneumonia. 2. High-riding endotracheal tube. Dictated by: Enrique Candelario MD. on 09/08/2020 at 11:22 AM
--- NOTE | 2020-09-08 14:08 | PRM.PN ---
PROGRESS NOTE S/O/A/P Date: Sep 08, 2020 CC: acute respiratory failure. Subjective: He was stable last 24 hrs, no events over night. still sedated. ROS: unobtainable. Objective Vital Sign - Last 24 Hours 09/07/20 09/07/20 09/07/20 09/07/20 14:13 14:15 14:28 14:30 Temp 99.9 99.9 99.9 99.9 Pulse 55 55 55 55 Resp 22 B/P (MAP) 104/64 (77) 104/61 (75) Pulse Ox 98 97 97 97 09/07/20 09/07/20 09/07/20 09/07/20 14:45 14:59 15:00 15:15 Temp 99.7 99.7 99.7 99.7 Pulse 55 54 55 55 Resp B/P (MAP) 102/64 (77) Pulse Ox 97 97 97 97 09/07/20 09/07/20 09/07/20 09/07/20 15:29 15:30 15:45 15:59 Temp 99.7 99.7 99.5 99.5 Pulse 54 54 54 53 Resp 22 B/P (MAP) 108/64 (79) 104/62 (76) Pulse Ox 98 98 97 97 09/07/20 09/07/20 09/07/20 09/07/20 16:00 16:15 16:19 16:19 Temp 99.5 99.5 Pulse 55 53 55 55 Resp 23 Pulse Ox 97 97 97 97 09/07/20 09/07/20 09/07/20 09/07/20 16:19 16:29 16:30 16:30 Temp 99.3 99.3 99.3 Pulse 55 52 53 53 Resp 22 B/P (MAP) 100/58 (72) Pulse Ox 97 96 97 97 FiO2 100 09/07/20 09/07/20 09/07/20 09/07/20 16:40 16:45 16:59 17:00 Temp 99.3 99.3 99.3 Pulse 55 55 52 53 Resp 22 B/P (MAP) 106/61 (76) Pulse Ox 97 97 95 94 FiO2 100 09/07/20 09/07/20 09/07/20 09/07/20 17:15 17:29 17:30 17:37 Temp 99.1 99.1 99.1 Pulse 71 57 57 Resp 22 B/P (MAP) 108/58 (75) Pulse Ox 85 96 97 O2 Delivery Mechanical Ventilator 09/07/20 09/07/20 09/07/20 09/07/20 17:45 17:59 18:00 19:00 Temp 99.1 99.1 99.1 99.0 Pulse 57 54 54 51 Resp 22 B/P (MAP) 103/60 (74) Pulse Ox 98 97 98 98 09/07/20 09/07/20 09/07/20 09/07/20 19:15 19:29 19:30 19:45 Temp 99.0 99.0 99.0 99.0 Pulse 52 55 53 60 Resp 23 22 B/P (MAP) 119/68 (85) Pulse Ox 98 96 95 93 09/07/20 09/07/20 09/07/20 09/07/20 20:00 20:00 20:00 20:15 Temp 99.0 99.0 Pulse 53 60 53 Resp 22 Pulse Ox 95 90 95 O2 Delivery Mechanical Ventilator FiO2 100 09/07/20 09/07/20 09/07/20 09/07/20 20:15 20:23 20:29 20:30 Temp 99.0 99.0 99.0 Pulse 52 54 57 58 Resp 23 B/P (MAP) 110/62 (78) 108/58 (75) Pulse Ox 95 98 99 99 O2 Delivery Mechanical Ventilator FiO2 100 09/07/20 09/07/20 09/07/20 09/07/20 20:59 21:02 21:02 22:30 Temp 99.0 Pulse 52 56 52 56 Resp 30 22 22 Pulse Ox 95 95 95 96 FiO2 100 09/07/20 09/07/20 09/07/20 09/07/20 22:45 22:59 23:00 23:15 Temp 99.1 99.1 99.1 99.1 Pulse 57 57 55 58 Resp 23 22 B/P (MAP) 113/60 (77) Pulse Ox 97 97 97 97 09/07/20 09/07/20 09/07/20 09/07/20 23:29 23:30 23:45 23:58 Temp 99.1 99.1 99.3 Pulse 57 57 58 61 Resp 23 26 B/P (MAP) 119/65 (83) Pulse Ox 96 96 97 96 FiO2 100 09/07/20 09/08/20 09/08/20 09/08/20 23:59 00:00 00:00 00:15 Temp 99.3 99.3 99.3 Pulse 60 59 60 62 Resp 22 B/P (MAP) 113/61 (78) Pulse Ox 97 97 90 97 FiO2 100 09/08/20 09/08/20 09/08/20 09/08/20 00:29 00:30 00:45 00:59 Temp 99.3 99.3 99.3 99.5 Pulse 68 63 68 75 Resp 23 B/P (MAP) 128/65 (86) 133/70 (91) Pulse Ox 97 96 97 99 09/08/20 09/08/20 09/08/20 09/08/20 01:00 01:15 01:29 01:30 Temp 99.5 99.7 99.7 99.7 Pulse 74 70 68 70 Resp 23 B/P (MAP) 117/62 (80) Pulse Ox 99 97 95 97 09/08/20 09/08/20 09/08/20 09/08/20 02:00 02:15 02:30 02:45 Temp 99.9 99.9 99.9 99.7 Pulse 65 60 63 58 Resp 25 17 56 23 Pulse Ox 94 95 94 96 09/08/20 09/08/20 09/08/20 09/08/20 03:00 03:13 03:15 03:20 Temp 99.0 99.9 99.9 Pulse 82 61 Resp B/P (MAP) 147/68 (94) Pulse Ox 97 93 98 96 09/08/20 09/08/20 09/08/20 09/08/20 03:30 03:43 03:45 03:45 Temp 99.9 99.7 99.7 Pulse 83 74 63 78 Resp 23 22 B/P (MAP) 142/78 (99) Pulse Ox 93 92 97 92 09/08/20 09/08/20 09/08/20 09/08/20 04:00 04:00 04:13 04:15 Temp 99.7 99.9 99.9 Pulse 66 60 56 57 Resp B/P (MAP) 131/75 (93) Pulse Ox 97 90 97 98 FiO2 100 09/08/20 09/08/20 09/08/20 09/08/20 04:30 04:42 04:45 04:57 Temp 99.7 99.9 99.9 Pulse 54 53 52 62 Resp B/P (MAP) 124/75 (91) Pulse Ox 99 99 99 97 FiO2 100 09/08/20 09/08/20 09/08/20 09/08/20 05:00 05:12 05:15 07:00 Temp 99.9 99.9 99.9 99.9 Pulse 53 54 54 58 Resp B/P (MAP) 119/75 (90) Pulse Ox 99 100 100 98 09/08/20 09/08/20 09/08/20 09/08/20 07:12 07:30 07:30 07:42 Temp 99.9 100.0 100.0 Pulse 59 60 58 63 Resp B/P (MAP) 126/73 (90) 125/69 (87) Pulse Ox 98 99 98 99 FiO2 100 09/08/20 09/08/20 09/08/20 09/08/20 07:45 08:00 08:00 08:12 Temp 100.0 100.0 100.0 Pulse 60 65 63 Resp 23 B/P (MAP) 131/71 (91) Pulse Ox 99 98 98 O2 Delivery Mechanical Ventilator 09/08/20 09/08/20 09/08/20 09/08/20 08:15 08:30 08:42 08:45 Temp 100.0 100.0 100.2 100.2 Pulse 67 86 68 68 Resp B/P (MAP) 139/86 (103) Pulse Ox 99 95 95 95 09/08/20 09/08/20 09/08/20 09/08/20 08:46 08:47 08:48 08:49 Pulse 59 59 59 59 Resp 23 Pulse Ox 98 98 98 98 O2 Delivery Mechanical Ventilator FiO2 100 100 09/08/20 09/08/20 09/08/20 09/08/20 09:00 09:12 09:15 09:30 Temp 100.2 100.2 100.2 100.4 Pulse 70 65 74 81 Resp 28 29 32 31 B/P (MAP) 136/74 (94) Pulse Ox 93 93 94 94 09/08/20 09/08/20 09/08/20 09/08/20 09:42 09:45 10:00 10:12 Temp 100.4 100.4 100.6 100.6 Pulse 86 90 76 77 Resp 34 34 36 33 B/P (MAP) 137/66 (89) 124/60 (81) Pulse Ox 92 92 92 93 09/08/20 09/08/20 09/08/20 09/08/20 10:15 10:30 10:42 10:42 Temp 100.6 100.6 100.6 100.6 Pulse 77 81 73 73 Resp 38 34 22 22 B/P (MAP) 123/67 (85) 123/67 (85) Pulse Ox 92 93 96 96 09/08/20 09/08/20 09/08/20 09/08/20 10:45 10:57 11:12 11:32 Temp 100.6 100.4 100.4 100.4 Pulse 66 60 61 73 Resp 22 22 22 22 B/P (MAP) 120/65 (83) 124/63 (83) Pulse Ox 96 97 98 89 09/08/20 09/08/20 09/08/20 09/08/20 11:42 11:43 11:44 11:57 Temp 100.4 100.4 100.4 Pulse 68 70 65 Resp 23 25 22 B/P (MAP) 124/64 (84) 124/64 Pulse Ox 89 90 89 09/08/20 09/08/20 09/08/20 12:01 12:01 12:09 Pulse 59 75 Resp 22 33 Pulse Ox 90 93 O2 Delivery Mechanical Ventilator FiO2 100 100 Intake and Output 09/08/20 07:00 Intake Total 360 ml Output Total 1425 ml Balance -1065 ml Physical exam: General: not in distress. Neuro:sedated. Heart: Normal S1, Normal S2, No murmurs, Other (slightly tachycardic this AM) Abdomen: Normal bowel sounds, Soft Lungs: breath sounds equal and symmetric. Lungs are mostly clear, but there are increasing scattered rales. Skin: No rashes, No breakdown, No significant lesion. Laboratory Tests Test 09/08/20 05:02 09/08/20 07:50 09/08/20 08:50 09/08/20 11:57 White Blood Count 12.4 10^3/uL Red Blood Count 4.34 10^6/uL Hemoglobin 13.9 g/dL Hematocrit 41.2 % Mean Corpuscular Volume 94.9 fL Mean Corpuscular Hemoglobin 32.0 pg Mean Corpuscular Hemoglobin Concent 33.7 g/dL Red Cell Distribution Width 12.6 % Platelet Count 146 10^3/uL Mean Platelet Volume 10.0 fL Sodium Level 154 mmol/L 138 mmol/L Potassium Level 4.7 mmol/L 4.4 mmol/L Chloride Level 118.0 mmol/L 107.0 mmol/L Carbon Dioxide Level 27.2 mmol/L 26.5 mmol/L Anion Gap 13.5 8.9 Blood Urea Nitrogen 22 mg/dL 24 mg/dL Creatinine 0.53 mg/dL 0.56 mg/dL Estimated GFR () 195.3 183.3 Est GFR (CKD-EPI)(Non-Afr [place]ian) 161.4 151.5 BUN/Creatinine Ratio 41.0 42.0 Glucose Level 105 mg/dL 113 mg/dL Calcium Level 8.0 mg/dL 8.2 mg/dL Total Bilirubin 0.6 mg/dL Aspartate Amino Transf (AST/SGOT) 35 U/L Alanine Aminotransferase (ALT/SGPT) 25 U/L Alkaline Phosphatase 57 U/L C-Reactive Protein 12.77 mg/dL Total Protein 5.4 g/dL Albumin 1.5 g/dL Globulin 3.9 Albumin/Globulin Ratio 0.384 Blood Gas Sample Site RT BRACIAL ARTERY Blood Gas pH 7.460 Blood Gas PCO2 42.4 mmHg Blood Gas PO2 70.4 mmHg Blood Gas HCO3 29.5 mmol/L Blood Gas Base Excess 5.1 mmol/L Vince Test N/A Arterial Blood Oxygen Saturation 94.6 % Deoxyhemoglobin 5.3 % Carboxyhemoglobin 0.8 % Methemoglobin 0.4 % Total Hemoglobin 14.8 % Total Oxygen Concentration 19.5 % Blood Gas Temperature 37 Oxygen Delivery Method (LAB) VENT Blood Gas Vent Mode AC Blood Gas Vent Rate 22 FiO2 100 % Blood Gas Tidal Volume 450 ML Blood Gas PEEP 12.0 CMH2O Total Carbon Dioxide 30.8 mmol/L Vancomycin Level Trough 19.2 ug/mL Current Medications Medications (Trade) Dose Ordered Sig/Estuardo Route PRN Reason Start Time Stop Time Status Last Admin Dose Admin Enoxaparin Sodium (Lovenox) 40 mg DAILY SQ 08/31/20 09:00 09/04/20 11:47 DC 09/04/20 09:00 Remdesivir 200 mg/ Sodium Chloride 140 ml @ 120.69 mls/ hr OT IV 08/31/20 09:30 08/31/20 10:40 DC 08/31/20 09:38 Lorazepam (Ativan) 1 mg Q3HR PRN IV ANXIETY 08/31/20 05:00 09/01/20 10:41 DC 09/01/20 06:00 Azithromycin 500 mg/Sodium Chloride 250 ml @ 175 mls/hr Q24HRS IV 08/31/20 05:00 09/04/20 08:00 DC 09/04/20 04:12 Ceftriaxone Sodium 1000 mg/ Sodium Chloride 100 ml @ 100 mls/hr Q24HRS IV 08/31/20 05:00 09/05/20 09:27 DC 09/05/20 04:49 Lorazepam (Ativan) 1 mg STAT STAT IV 08/31/20 05:16 08/31/20 08:31 DC 08/31/20 05:34 Sodium Chloride 100 ml @ ud STK-MED ONCE IV 08/31/20 05:18 08/31/20 05:21 DC Ceftriaxone Sodium (Rocephin) 1,000 mg STK-MED ONCE .ROUTE 08/31/20 05:19 08/31/20 05:21 DC Sodium Chloride 500 ml @ ud STK-MED ONCE IV 08/31/20 05:37 08/31/20 05:40 DC Morphine Sulfate (Morphine Sulfate) 0.5 mg STAT ONCE IV 08/31/20 06:15 08/31/20 08:44 DC 08/31/20 06:15 Albuterol/ Ipratropium (Duo 0.5-3(2.5) Mg/3 ml) 3 ml RTQ6H IH 08/31/20 08:00 09/30/20 07:59 09/08/20 08:45 Albuterol Sulfate (Ventolin) 2.5 mg RTQ4 PRN IH WHEEZING 08/31/20 08:00 09/30/20 07:59 09/05/20 09:00 Furosemide (Lasix) 40 mg STAT STAT IV 08/31/20 07:55 08/31/20 08:44 DC 08/31/20 08:08 Morphine Sulfate (Morphine Sulfate) 0.5 mg OT STAT IV 08/31/20 07:56 08/31/20 08:44 DC 08/31/20 08:25 Lorazepam (Ativan) 0.5 mg STAT STAT IV 08/31/20 07:56 08/31/20 08:43 DC 08/31/20 08:23 Sodium Chloride 250 ml @ ud STK-MED ONCE IV 08/31/20 08:03 08/31/20 08:05 DC Sodium Chloride 100 ml @ ud STK-MED ONCE IV 08/31/20 09:34 08/31/20 09:36 DC Remdesivir 100 mg/ Sodium Chloride 120 ml @ 111.111 mls/hr Q24HRS IV 09/01/20 09:00 09/05/20 09:23 DC 09/05/20 08:39 Aspirin (Aspirin) 81 mg DAILY PO 09/01/20 09:00 10/01/20 08:59 09/08/20 08:04 Famotidine (Pepcid) 20 mg BID PO 08/31/20 21:00 09/01/20 22:57 DC 09/01/20 21:00 Ascorbic Acid (Vitamin C) 500 mg BID PO 08/31/20 21:00 09/30/20 20:59 09/08/20 08:04 Zinc Sulfate (Zinc Sulfate) 220 mg DAILY PO 08/31/20 21:00 09/30/20 20:59 09/08/20 08:04 Guaifenesin (Robitussin Dm) 5 ml Q4HR PRN PO COUGH 09/01/20 01:30 09/01/20 10:41 DC Morphine Sulfate (Morphine Sulfate) 2 mg STK-MED ONCE .ROUTE 09/01/20 03:32 09/01/20 03:34 DC Morphine Sulfate (Morphine Sulfate) 0.5 mg STAT STAT IV 09/01/20 03:33 09/01/20 03:35 DC 09/01/20 03:33 Sodium Chloride 100 ml @ ud STK-MED ONCE IV 09/01/20 05:28 09/01/20 05:30 DC Sodium Chloride 250 ml @ ud STK-MED ONCE IV 09/01/20 05:29 09/01/20 05:30 DC Ceftriaxone Sodium (Rocephin) 1,000 mg STK-MED ONCE .ROUTE 09/01/20 05:29 09/01/20 05:31 DC Benzonatate (Tessalon Perle) 100 mg Q2 PRN PO COUGH 09/01/20 06:00 09/01/20 05:50 DC Dexmedetomidine HCl 200 mcg/ Sodium Chloride 50 ml @ 0 mls/hr IV 09/01/20 06:00 09/01/20 08:24 DC Sodium Chloride 250 ml @ ud STK-MED ONCE IV 09/01/20 05:37 09/01/20 05:39 DC Benzonatate (Tessalon Perle) 200 mg TID PRN PO COUGH 09/01/20 06:00 09/01/20 10:41 DC 09/01/20 06:00 Acetaminophen/ Hydrocodone Bitart ([place] 5mg) 1 ea TID PRN PO PAIN 4 - 6 09/01/20 06:00 09/01/20 10:41 DC Dexmedetomidine HCl 400 mcg/ Sodium Chloride 100 ml @ 0 mls/hr IV 09/01/20 08:30 09/04/20 19:42 DC 09/04/20 08:49 Sodium Chloride 1,000 ml @ ud STK-MED ONCE .ROUTE 09/01/20 10:16 09/01/20 10:18 DC Sodium Chloride 1,000 ml @ ud STK-MED ONCE .ROUTE 09/01/20 10:18 09/01/20 10:20 DC Propofol 100 ml @ ud STK-MED ONCE IV 09/01/20 10:28 09/01/20 10:30 DC Vecuronium [place] (Norcuron) 10 mg STK-MED ONCE .ROUTE 09/01/20 10:29 09/01/20 10:31 DC Propofol (Diprivan) Diprivan IV infusion tritra... TITRATE PRN IV sedation 09/01/20 10:30 10/01/20 10:29 09/08/20 09:36 Propofol (Diprivan) STAT STAT IV 09/01/20 10:29 09/01/20 10:38 DC 09/01/20 11:50 Vecuronium [place] (Norcuron) 5 mg Q1HR IV 09/01/20 11:00 09/04/20 11:10 DC 09/04/20 06:28 Vecuronium [place] (Norcuron) 2 mg Q30MIN PRN IV paralysis 09/01/20 11:00 09/08/20 11:19 DC 09/04/20 10:00 Fentanyl Citrate 1000 mcg/Sodium Chloride 100 ml @ 0 mls/hr IV 09/01/20 11:30 09/07/20 20:40 DC 09/07/20 15:43 Sterile Water (Water) 1,000 ml STK-MED ONCE .ROUTE 09/01/20 13:55 09/01/20 13:57 DC Propofol (Diprivan) 200 mg STK-MED ONCE IV 09/01/20 12:00 09/01/20 21:42 DC Rocuronium [place] (Zemuron) 100 mg STK-MED ONCE IV 09/01/20 12:00 09/01/20 21:42 DC Succinylcholine Chloride (Quelicin) 100 mg STK-MED ONCE IV 09/01/20 12:00 09/01/20 21:42 DC Famotidine (Pepcid) 20 mg BID IV 09/02/20 09:00 10/02/20 08:59 09/08/20 08:04 Famotidine (Pepcid) 20 mg STK-MED ONCE IV 09/02/20 07:57 09/02/20 07:59 DC Albuterol/ Ipratropium (Duoneb 0.5 Mg-3 Mg/3 ml Soln) 3 ml STK-MED ONCE IH 09/02/20 08:37 09/02/20 08:39 DC Sterile Water (Water) 1,000 ml STK-MED ONCE .ROUTE 09/03/20 14:28 09/03/20 14:30 DC Sodium Chloride 500 ml @ ud STK-MED ONCE IV 09/04/20 09:35 09/04/20 09:37 DC Vecuronium [place] (Norcuron) 15 mg Q1HR PRN IV vent dsynchrony or hypoxia 09/04/20 11:30 10/04/20 11:29 09/08/20 10:26 Enoxaparin Sodium (Lovenox) 40 mg BID SQ 09/04/20 21:00 09/08/20 10:44 DC 09/08/20 09:36 Sterile Water (Water) 1,000 ml STK-MED ONCE .ROUTE 09/04/20 17:03 09/04/20 17:05 DC Dexmedetomidine HCl 800 mcg/ Sodium Chloride 200 ml @ 0 mls/hr IV 09/04/20 20:00 09/07/20 20:39 DC 09/07/20 11:26 Vancomycin HCl 1.5 gm/Sodium Chloride 300 ml @ 175 mls/hr Q12H IV 09/05/20 11:00 09/07/20 18:15 DC 09/07/20 10:46 Cefepime HCl 2 gm/ Sodium Chloride 100 ml @ 100 mls/hr Q8H IV 09/05/20 09:30 09/07/20 11:14 DC 09/07/20 09:27 Vecuronium [place] (Norcuron) 10 mg STK-MED ONCE .ROUTE 09/05/20 12:00 09/05/20 16:06 DC Sodium Chloride 500 ml @ ud STK-MED ONCE IV 09/05/20 21:36 09/05/20 21:38 DC Piperacillin Sod/ Tazobactam Sod 3.375 gm/Sodium Chloride 100 ml @ 100 mls/hr Q6H IV 09/07/20 11:30 09/07/20 12:27 DC Piperacillin Sod/ Tazobactam Sod 3.375 gm/Sodium Chloride 100 ml @ 100 mls/hr Q6H IV 09/07/20 13:00 10/07/20 12:59 09/08/20 12:26 Vancomycin HCl 1.5 gm/Sodium Chloride 300 ml @ 175 mls/hr Q8H IV 09/07/20 20:00 10/07/20 19:59 09/08/20 04:00 Sodium Chloride 500 ml @ ud STK-MED ONCE IV 09/07/20 20:09 09/07/20 20:10 DC Dexmedetomidine HCl 1600 mcg/ Sodium Chloride 400 ml @ 0 mls/hr IV 09/07/20 21:00 10/07/20 20:59 Fentanyl Citrate 2000 mcg/Sodium Chloride 200 ml @ 0 mls/hr IV 09/07/20 21:00 09/07/20 20:41 DC Fentanyl Citrate 2000 mcg/Sodium Chloride 200 ml @ 0 mls/hr IV 09/07/20 21:00 10/07/20 20:59 Enoxaparin Sodium (Lovenox) 90 mg BID SQ 09/08/20 21:00 10/08/20 20:59 Furosemide (Lasix) 20 mg STAT STAT IV 09/08/20 10:42 09/08/20 11:31 DC 09/08/20 11:44 Furosemide (Lasix) 20 mg STK-MED ONCE .ROUTE 09/08/20 10:52 09/08/20 10:54 DC Assessment & Plan: Assessment Hospital course: Pt is a 54 y/o M with PMHx of HTN, HLD, obesity, and anxiety. He was admitted the morning of 08/31 as a transfer from OSH for acute hypoxemic respiratory failure and COVID-19. He was started on full spectrum treatment for COVID-19 with IV Decadron, Azithromycin, Remdesivir, CCP, Zinc, and Vitamin C. On arrival to this facility, he was in mild to moderate respiratory distress and required continuous CPAP to maintain Oxygenation. He remained relatively stable throughout 08/31, but started becoming more fatigued the evening of 08/31, and was moved to the ICU for closer monitoring. In the ICU, he was continued on CPAP in an effort to avoid intubation. However, he continued to have difficulty with NIPPV and was frequently dyssynchronous, causing further desaturations. He was also noted to have Sub q emphysema in his chest and neck, which was concerning for barotrauma due to continued dyssynchrony. The morning of 09/01, he was noted to be in worsened respiratory distress and there was concern for impending respiratory collapse due to fatigue. The patient and I discussed intubation and he agreed to be electively intubated before he decompensated completely. The on- call [employer]OUSING ASSIST[employer] PROPERTY MANA[employer] was called and the patient was subsequently intubated without complication. He was started on Propofol and fentanyl drips and paralyzed with IV vecuronium pushes. He has tolerated mechanical ventilation rather well and his O2 sats and PaO2 have improved markedly. Prior to intubation his ABG showed normal pH and a PaO2 in the 50's. His PaO2 improved to 70's within the hour, and was 150's on his most recent ABG the evening of 09/01. Of note, I did discuss the possibility of prolonged intubation, need for tracheostomy, and whether this is something that he would want done. He agreed that tracheostomy and long-term vent weaning is something that he would be ok with if it came down to it. Since intubation, he has improved markedly. He was continued on treatment for COVID with Remdesivir, steroids, and azithromycin and has completed his courses of each of these. His inflammtory markers have been downtrending with the exception of D-dimer which is uptrending slowly. His WBC was previously trending down, but increased sharply from 15 to 19 today. He has also been fevering so his Abx were broadened out to Vanc/Cefepime this AM and repeat Blood and sputum cultures were obtained. 09/06/2020: he remained stable. still have low grade fever. blood cultures are negative. 09/07: o2 level improved with prone position. still require high vent settings. 09/08: stable. he will be placed in prone position again today. Assessments: Neuro:sedated with sedatives holiday. CV:HD stable. Hx HTN but off lisinopril due to soft BP. Pulmo: Acute respiratory failure on mechanical ventilation: managed by ICU telemedicine.Keep Pplat < 30 to limit risk of pneumothorax and barotrauma. COVID-19 pneumonia: possibly superimposed with HAP. Procalcitonin is normal. covid markers still high. - Pt has completed his course of Remdesivir. - s/p 1u CCP - c/w Vanc day 4 - c/w Zosyn day 2 - continue Propofol/Fentanyl for sedation/analgesia; precedex is available for backup sedation if needed - continue IV Vecuronium 15mg q1h + IV Vec 2mg q30min PRN - trend COVID markers q48h - CXR q48h and PRN Pneumomediastinum without pneumothorax: stable. GI:TF 40cc/hr only when supine for 8 hrs. TF is held in prone position. we will chnage feeding to bolus feeding while supine. : no issues endo: Bg normal. he is off steroids. heme:WBC trended down. FEN:low input due to holding TF. we will change to bolus feeding and start D5w for 10 hour for fluid replacement. corrected calcium is normal. Sedation: propofol/precedex Analgesia: Fent VTE ppx: Lovenox GI ppx: Pepcid Diet: TF per dietary recs CODE: teacher adult education Spent: > 40 minutes between evaluation, coordination of care, and d ocumentation I spoke to his for updates. prognosis is guarded. ARMANDO OLIVARES MD Sep 08, 2020 14:08
[2020-09-08] MEDS ORDERED: D5W 1000ML 1,000 ML IV ONE (14:30)
--- NOTE | 2020-09-08 15:56 | NUR ---
Pt's called and updated on pt's condition and plan of care. 's questions relating to vent settings, fever and WBC count answered. states understanding of information.
[2020-09-08] MEDS: VANCOMYCIN HCL IV SCH (20:30)
[2020-09-08] MEDS: NS IV SCH (20:30)
[2020-09-09] VITALS (30 sets, daily range): BP systolic 107–158; BP diastolic 50–83
[2020-09-09] MEDS: ZOSYN 3.375 GM 3.375 GM in NS 100ML 100 ML IV SCH ×4 (01:00→19:00)
[2020-09-09] MEDS: VANCOMYCIN HCL IV SCH (04:50)
[2020-09-09] MEDS: NS IV SCH (04:50)
[2020-09-09] MEDS ORDERED: WATER ONE (04:59)
[2020-09-09 06:40] LABS: RED CELL DISTRIBUTION WIDTH 12.5 % (11.5-14.5)
[2020-09-09 07:05] LABS: CALCIUM 8.2 mg/dL (8.4-10.5); CARBON DIOXIDE 28.4 mmol/L (20.0-32)
[2020-09-09] MEDS ORDERED: VANCOMYCIN HCL 1 GM in NS 250ML 250 ML IV SCH (08:39)
[2020-09-09] MEDS: LOVENOX SQ SCH ×2 (09:00→20:07)
[2020-09-09] MEDS: ASPIRIN PO SCH (09:00)
[2020-09-09] MEDS: ZINC SULFATE PO SCH (09:00)
[2020-09-09] MEDS: PEPCID IV SCH ×2 (09:00→20:07)
[2020-09-09] MEDS: DEXAMETHASONE 10 MG/ML VIAL IV SCH (09:00)
[2020-09-09] MEDS: VITAMIN C PO SCH ×2 (09:00→20:07)
--- NOTE | 2020-09-09 11:22 | PRM.PN ---
PROGRESS NOTE S/O/A/P CC: acute respiratory failure. Subjective: He was stable last 24 hrs, no events over night. he is running fever. still sedated. ROS: unobtainable. Objective Vital Sign - Last 24 Hours 09/08/20 09/08/20 09/08/20 09/08/20 11:32 11:42 11:43 11:44 Temp 100.4 100.4 100.4 Pulse 73 68 70 Resp 25 B/P (MAP) 124/63 (83) 124/64 (84) 124/64 Pulse Ox 89 89 90 09/08/20 09/08/20 09/08/20 09/08/20 11:57 12:01 12:01 12:09 Temp 100.4 Pulse 65 59 75 Resp 33 Pulse Ox 89 90 93 O2 Delivery Mechanical Ventilator FiO2 100 100 09/08/20 09/08/20 09/08/20 09/08/20 12:12 12:42 12:43 13:12 Temp 100.4 100.4 100.4 100.4 Pulse 52 59 58 57 Resp B/P (MAP) 138/75 (96) 120/66 (84) 113/68 (83) Pulse Ox 91 90 93 93 09/08/20 09/08/20 09/08/20 09/08/20 13:42 14:12 14:42 14:43 Temp 100.4 100.2 100.0 100.0 Pulse 58 52 58 57 Resp 22 B/P (MAP) 126/72 (90) 135/75 (95) 129/62 (84) Pulse Ox 93 95 97 09/08/20 09/08/20 09/08/20 09/08/20 14:43 15:13 15:14 15:16 Temp 100.0 99.9 Pulse 57 55 56 56 Resp B/P (MAP) 129/62 (84) 118/67 (84) Pulse Ox 97 93 93 93 FiO2 100 09/08/20 09/08/20 09/08/20 09/08/20 15:16 15:43 16:05 16:12 Temp 99.9 99.7 Pulse 56 53 51 50 Resp 22 B/P (MAP) 122/65 (84) 129/72 (91) Pulse Ox 93 91 93 92 FiO2 100 09/08/20 09/08/20 09/08/20 09/08/20 16:25 16:43 17:13 17:43 Temp 99.7 99.5 99.3 Pulse 51 50 51 Resp B/P (MAP) 129/65 (86) 128/67 (87) 117/65 (82) Pulse Ox 94 93 93 O2 Delivery Mechanical Ventilator 09/08/20 09/08/20 09/08/20 09/08/20 17:43 17:58 18:12 18:13 Temp 99.3 99.3 99.1 99.1 Pulse 51 52 51 51 Resp B/P (MAP) 117/65 (82) 115/63 (80) Pulse Ox 93 92 91 91 09/08/20 09/08/20 09/08/20 09/08/20 18:28 18:42 18:43 20:00 Temp 99.1 99.0 99.0 Pulse 51 51 51 60 Resp B/P (MAP) 113/64 (80) Pulse Ox 92 90 91 90 FiO2 100 09/08/20 09/08/20 09/08/20 09/08/20 20:00 20:57 20:58 20:59 Pulse 48 48 50 Resp Pulse Ox 99 99 99 O2 Delivery Mechanical Ventilator Mechanical Ventilator FiO2 100 100 09/08/20 09/08/20 09/08/20 09/08/20 20:59 22:15 22:30 22:42 Temp 98.2 98.2 98.2 Pulse 48 50 58 59 Resp B/P (MAP) 113/55 (74) Pulse Ox 99 99 99 100 09/08/20 09/08/20 09/08/20 09/08/20 22:45 23:00 23:12 23:15 Temp 98.2 98.4 98.4 98.6 Pulse 58 56 60 64 Resp B/P (MAP) 118/56 (76) Pulse Ox 99 98 98 98 09/08/20 09/08/20 09/08/20 09/08/20 23:30 23:38 23:42 23:45 Temp 98.6 98.8 98.8 Pulse 71 68 77 71 Resp B/P (MAP) 126/64 (84) Pulse Ox 99 100 98 98 FiO2 100 09/09/20 09/09/20 09/09/20 09/09/20 00:00 00:00 00:00 00:13 Temp 99.0 99.0 Pulse 75 60 76 Resp 22 22 22 B/P (MAP) 128/62 (84) Pulse Ox 98 90 99 O2 Delivery Mechanical Ventilator FiO2 100 09/09/20 09/09/20 09/09/20 09/09/20 00:15 00:30 00:43 00:45 Temp 99.0 99.1 99.1 99.1 Pulse 73 71 73 69 Resp 22 22 22 22 B/P (MAP) 122/52 (75) Pulse Ox 98 98 99 99 09/09/20 09/09/20 09/09/20 09/09/20 01:00 01:12 01:15 01:43 Temp 99.3 99.3 99.3 99.5 Pulse 70 70 69 66 Resp 22 22 22 23 B/P (MAP) 120/57 (78) 116/56 (76) Pulse Ox 98 98 97 97 09/09/20 09/09/20 09/09/20 09/09/20 01:45 02:00 02:12 02:15 Temp 99.5 99.7 99.7 99.7 Pulse 66 59 63 65 Resp 24 21 23 23 B/P (MAP) 116/56 (76) Pulse Ox 96 97 98 98 09/09/20 09/09/20 09/09/20 09/09/20 02:30 02:42 02:45 03:00 Temp 99.9 99.9 99.9 100.0 Pulse 71 62 62 57 Resp 38 22 22 23 B/P (MAP) 107/50 (69) Pulse Ox 94 99 98 99 09/09/20 09/09/20 09/09/20 09/09/20 03:15 03:30 03:37 03:45 Temp 100.0 100.0 Pulse 74 75 Resp 26 B/P (MAP) 158/70 (99) Pulse Ox 99 94 89 94 09/09/20 09/09/20 09/09/20 09/09/20 04:00 04:00 04:00 04:00 Temp 99.9 Pulse 75 60 67 68 Resp 22 22 22 22 Pulse Ox 95 90 97 99 FiO2 100 100 09/09/20 09/09/20 09/09/20 09/09/20 04:00 04:07 04:15 04:30 Temp 99.9 99.9 99.9 Pulse 67 76 70 74 Resp B/P (MAP) 143/72 (95) Pulse Ox 97 95 95 95 09/09/20 09/09/20 09/09/20 09/09/20 04:37 04:45 05:00 05:07 Temp 99.9 99.9 99.9 99.9 Pulse 74 72 63 70 Resp B/P (MAP) 130/64 (86) 128/72 (90) Pulse Ox 96 95 96 94 09/09/20 09/09/20 09/09/20 09/09/20 05:15 05:30 05:35 05:37 Temp 99.9 99.9 99.9 Pulse 76 92 92 Resp B/P (MAP) 151/75 (100) Pulse Ox 96 95 99 95 09/09/20 09/09/20 09/09/20 09/09/20 05:45 06:00 06:07 06:15 Temp 99.9 100.0 100.0 100.2 Pulse 91 86 91 96 Resp B/P (MAP) 148/77 (100) Pulse Ox 93 92 91 94 09/09/20 09/09/20 09/09/20 09/09/20 06:30 08:00 08:38 08:50 Temp 100.4 Pulse 93 60 60 Resp 22 22 33 Pulse Ox 93 90 93 O2 Delivery Mechanical Ventilator FiO2 100 09/09/20 09/09/20 09/09/20 08:50 08:50 08:50 Pulse 94 94 60 Resp 33 33 33 Pulse Ox 93 93 93 FiO2 100 100 Intake and Output 09/09/20 07:00 Intake Total 1230 ml Output Total 2450 ml Balance -1220 ml Physical exam: General: not in distress. Neuro:sedated. Heart: Normal S1, Normal S2, No murmurs. Abdomen: Normal bowel sounds, Soft Lungs: breath sounds equal and symmetric. Lungs are mostly clear, but there are increasing scattered rales. Skin: No rashes, No breakdown, No significant lesion. Extremities: +edema. palpable pulses. Laboratory Tests Test 09/08/20 11:57 09/09/20 05:44 09/09/20 08:00 09/09/20 09:35 Vancomycin Level Trough 19.2 ug/mL White Blood Count 18.0 10^3/uL Red Blood Count 4.63 10^6/uL Hemoglobin 14.8 g/dL Hematocrit 42.6 % Mean Corpuscular Volume 92.0 fL Mean Corpuscular Hemoglobin 32.0 pg Mean Corpuscular Hemoglobin Concent 34.7 g/dL Red Cell Distribution Width 12.5 % Platelet Count 154 10^3/uL Mean Platelet Volume 10.1 fL Sodium Level 139 mmol/L Potassium Level 3.5 mmol/L Chloride Level 103.0 mmol/L Carbon Dioxide Level 28.4 mmol/L Anion Gap 11.1 Blood Urea Nitrogen 21 mg/dL Creatinine 0.52 mg/dL Estimated GFR () 199.6 Est GFR (CKD-EPI)(Non-Afr Australian) 165.0 BUN/Creatinine Ratio 40.0 Glucose Level 117 mg/dL Calcium Level 8.2 mg/dL Total Bilirubin 0.9 mg/dL Aspartate Amino Transf (AST/SGOT) 47 U/L Alanine Aminotransferase (ALT/SGPT) 51 U/L Alkaline Phosphatase 70 U/L Total Protein 6.0 g/dL Albumin 1.7 g/dL Globulin 4.3 Albumin/Globulin Ratio 0.395 Blood Gas Sample Site RT BRACIAL ARTERY Blood Gas pH 7.398 Blood Gas PCO2 44.4 mmHg Blood Gas PO2 51.8 mmHg Blood Gas HCO3 26.8 mmol/L Blood Gas Base Excess 1.5 mmol/L Vince Test POSITIVE Arterial Blood Oxygen Saturation 85.5 % Deoxyhemoglobin 14.4 % Carboxyhemoglobin 0.3 % Methemoglobin 0.3 % Total Hemoglobin 15.6 % Total Oxygen Concentration 18.6 % Blood Gas Temperature 37 Oxygen Delivery Method (LAB) VENT Blood Gas Vent Mode AC Blood Gas Vent Rate 22 FiO2 100 % Blood Gas Tidal Volume 500 ML Blood Gas PEEP 14 CMH2O Total Carbon Dioxide 28.1 mmol/L Lactic Acid Level 1.1 mmol/L Influenza Type A Antigen NEGATIVE Influenza B Immunofluorescence NEGATIVE Current Medications Medications (Trade) Dose Ordered Sig/Estuardo Route PRN Reason Start Time Stop Time Status Last Admin Dose Admin Enoxaparin Sodium (Lovenox) 40 mg DAILY SQ 08/31/20 09:00 09/04/20 11:47 DC 09/04/20 09:00 Remdesivir 200 mg/ Sodium Chloride 140 ml @ 120.69 mls/ hr OT IV 08/31/20 09:30 08/31/20 10:40 DC 08/31/20 09:38 Lorazepam (Ativan) 1 mg Q3HR PRN IV ANXIETY 08/31/20 05:00 09/01/20 10:41 DC 09/01/20 06:00 Azithromycin 500 mg/Sodium Chloride 250 ml @ 175 mls/hr Q24HRS IV 08/31/20 05:00 09/04/20 08:00 DC 09/04/20 04:12 Ceftriaxone Sodium 1000 mg/ Sodium Chloride 100 ml @ 100 mls/hr Q24HRS IV 08/31/20 05:00 09/05/20 09:27 DC 09/05/20 04:49 Lorazepam (Ativan) 1 mg STAT STAT IV 08/31/20 05:16 08/31/20 08:31 DC 08/31/20 05:34 Sodium Chloride 100 ml @ ud STK-MED ONCE IV 08/31/20 05:18 08/31/20 05:21 DC Ceftriaxone Sodium (Rocephin) 1,000 mg STK-MED ONCE .ROUTE 08/31/20 05:19 08/31/20 05:21 DC Sodium Chloride 500 ml @ ud STK-MED ONCE IV 08/31/20 05:37 08/31/20 05:40 DC Morphine Sulfate (Morphine Sulfate) 0.5 mg STAT ONCE IV 08/31/20 06:15 08/31/20 08:44 DC 08/31/20 06:15 Albuterol/ Ipratropium (Duo 0.5-3(2.5) Mg/3 ml) 3 ml RTQ6H IH 08/31/20 08:00 09/30/20 07:59 09/08/20 21:01 Albuterol Sulfate (Ventolin) 2.5 mg RTQ4 PRN IH WHEEZING 08/31/20 08:00 09/30/20 07:59 09/05/20 09:00 Furosemide (Lasix) 40 mg STAT STAT IV 08/31/20 07:55 08/31/20 08:44 DC 08/31/20 08:08 Morphine Sulfate (Morphine Sulfate) 0.5 mg OT STAT IV 08/31/20 07:56 08/31/20 08:44 DC 08/31/20 08:25 Lorazepam (Ativan) 0.5 mg STAT STAT IV 08/31/20 07:56 08/31/20 08:43 DC 08/31/20 08:23 Sodium Chloride 250 ml @ ud STK-MED ONCE IV 08/31/20 08:03 08/31/20 08:05 DC Sodium Chloride 100 ml @ ud STK-MED ONCE IV 08/31/20 09:34 08/31/20 09:36 DC Remdesivir 100 mg/ Sodium Chloride 120 ml @ 111.111 mls/hr Q24HRS IV 09/01/20 09:00 09/05/20 09:23 DC 09/05/20 08:39 Aspirin (Aspirin) 81 mg DAILY PO 09/01/20 09:00 10/01/20 08:59 09/09/20 09:00 Famotidine (Pepcid) 20 mg BID PO 08/31/20 21:00 09/01/20 22:57 DC 09/01/20 21:00 Ascorbic Acid (Vitamin C) 500 mg BID PO 08/31/20 21:00 09/30/20 20:59 09/09/20 09:00 Zinc Sulfate (Zinc Sulfate) 220 mg DAILY PO 08/31/20 21:00 09/30/20 20:59 09/09/20 09:00 Guaifenesin (Robitussin Dm) 5 ml Q4HR PRN PO COUGH 09/01/20 01:30 09/01/20 10:41 DC Morphine Sulfate (Morphine Sulfate) 2 mg STK-MED ONCE .ROUTE 09/01/20 03:32 09/01/20 03:34 DC Morphine Sulfate (Morphine Sulfate) 0.5 mg STAT STAT IV 09/01/20 03:33 09/01/20 03:35 DC 09/01/20 03:33 Sodium Chloride 100 ml @ ud STK-MED ONCE IV 09/01/20 05:28 09/01/20 05:30 DC Sodium Chloride 250 ml @ ud STK-MED ONCE IV 09/01/20 05:29 09/01/20 05:30 DC Ceftriaxone Sodium (Rocephin) 1,000 mg STK-MED ONCE .ROUTE 09/01/20 05:29 09/01/20 05:31 DC Benzonatate (Tessalon Perle) 100 mg Q2 PRN PO COUGH 09/01/20 06:00 09/01/20 05:50 DC Dexmedetomidine HCl 200 mcg/ Sodium Chloride 50 ml @ 0 mls/hr IV 09/01/20 06:00 09/01/20 08:24 DC Sodium Chloride 250 ml @ ud STK-MED ONCE IV 09/01/20 05:37 09/01/20 05:39 DC Benzonatate (Tessalon Perle) 200 mg TID PRN PO COUGH 09/01/20 06:00 09/01/20 10:41 DC 09/01/20 06:00 Acetaminophen/ Hydrocodone Bitart ([place] 5mg) 1 ea TID PRN PO PAIN 4 - 6 09/01/20 06:00 09/01/20 10:41 DC Dexmedetomidine HCl 400 mcg/ Sodium Chloride 100 ml @ 0 mls/hr IV 09/01/20 08:30 09/04/20 19:42 DC 09/04/20 08:49 Sodium Chloride 1,000 ml @ ud STK-MED ONCE .ROUTE 09/01/20 10:16 09/01/20 10:18 DC Sodium Chloride 1,000 ml @ ud STK-MED ONCE .ROUTE 09/01/20 10:18 09/01/20 10:20 DC Propofol 100 ml @ ud STK-MED ONCE IV 09/01/20 10:28 09/01/20 10:30 DC Vecuronium Ellery (Norcuron) 10 mg STK-MED ONCE .ROUTE 09/01/20 10:29 09/01/20 10:31 DC Propofol (Diprivan) Diprivan IV infusion tritra... TITRATE PRN IV sedation 09/01/20 10:30 10/01/20 10:29 09/08/20 18:04 Propofol (Diprivan) STAT STAT IV 09/01/20 10:29 09/01/20 10:38 DC 09/01/20 11:50 Vecuronium Ellery (Norcuron) 5 mg Q1HR IV 09/01/20 11:00 09/04/20 11:10 DC 09/04/20 06:28 Vecuronium Ellery (Norcuron) 2 mg Q30MIN PRN IV paralysis 09/01/20 11:00 09/08/20 11:19 DC 09/04/20 10:00 Fentanyl Citrate 1000 mcg/Sodium Chloride 100 ml @ 0 mls/hr IV 09/01/20 11:30 09/07/20 20:40 DC 09/07/20 15:43 Sterile Water (Water) 1,000 ml STK-MED ONCE .ROUTE 09/01/20 13:55 09/01/20 13:57 DC Propofol (Diprivan) 200 mg STK-MED ONCE IV 09/01/20 12:00 09/01/20 21:42 DC Rocuronium Ellery (Zemuron) 100 mg STK-MED ONCE IV 09/01/20 12:00 09/01/20 21:42 DC Succinylcholine Chloride (Quelicin) 100 mg STK-MED ONCE IV 09/01/20 12:00 09/01/20 21:42 DC Famotidine (Pepcid) 20 mg BID IV 09/02/20 09:00 10/02/20 08:59 09/09/20 09:00 Famotidine (Pepcid) 20 mg STK-MED ONCE IV 09/02/20 07:57 09/02/20 07:59 DC Albuterol/ Ipratropium (Duoneb 0.5 Mg-3 Mg/3 ml Soln) 3 ml STK-MED ONCE IH 09/02/20 08:37 09/02/20 08:39 DC Sterile Water (Water) 1,000 ml STK-MED ONCE .ROUTE 09/03/20 14:28 09/03/20 14:30 DC Sodium Chloride 500 ml @ ud STK-MED ONCE IV 09/04/20 09:35 09/04/20 09:37 DC Vecuronium Ellery (Norcuron) 15 mg Q1HR PRN IV vent dsynchrony or hypoxia 09/04/20 11:30 10/04/20 11:29 09/08/20 17:29 Enoxaparin Sodium (Lovenox) 40 mg BID SQ 09/04/20 21:00 09/08/20 10:44 DC 09/08/20 09:36 Sterile Water (Water) 1,000 ml STK-MED ONCE .ROUTE 09/04/20 17:03 09/04/20 17:05 DC Dexmedetomidine HCl 800 mcg/ Sodium Chloride 200 ml @ 0 mls/hr IV 09/04/20 20:00 09/07/20 20:39 DC 09/07/20 11:26 Vancomycin HCl 1.5 gm/Sodium Chloride 300 ml @ 175 mls/hr Q12H IV 09/05/20 11:00 09/07/20 18:15 DC 09/07/20 10:46 Cefepime HCl 2 gm/ Sodium Chloride 100 ml @ 100 mls/hr Q8H IV 09/05/20 09:30 09/07/20 11:14 DC 09/07/20 09:27 Vecuronium Ellery (Norcuron) 10 mg STK-MED ONCE .ROUTE 09/05/20 12:00 09/05/20 16:06 DC Sodium Chloride 500 ml @ ud STK-MED ONCE IV 09/05/20 21:36 09/05/20 21:38 DC Piperacillin Sod/ Tazobactam Sod 3.375 gm/Sodium Chloride 100 ml @ 100 mls/hr Q6H IV 09/07/20 11:30 09/07/20 12:27 DC Piperacillin Sod/ Tazobactam Sod 3.375 gm/Sodium Chloride 100 ml @ 100 mls/hr Q6H IV 09/07/20 13:00 10/07/20 12:59 09/09/20 07:00 Vancomycin HCl 1.5 gm/Sodium Chloride 300 ml @ 175 mls/hr Q8H IV 09/07/20 20:00 09/08/20 14:57 DC 09/08/20 13:30 Sodium Chloride 500 ml @ ud STK-MED ONCE IV 09/07/20 20:09 09/07/20 20:10 DC Dexmedetomidine HCl 1600 mcg/ Sodium Chloride 400 ml @ 0 mls/hr IV 09/07/20 21:00 10/07/20 20:59 Fentanyl Citrate 2000 mcg/Sodium Chloride 200 ml @ 0 mls/hr IV 09/07/20 21:00 09/07/20 20:41 DC Fentanyl Citrate 2000 mcg/Sodium Chloride 200 ml @ 0 mls/hr IV 09/07/20 21:00 10/07/20 20:59 Enoxaparin Sodium (Lovenox) 90 mg BID SQ 09/08/20 21:00 10/08/20 20:59 09/09/20 09:00 Furosemide (Lasix) 20 mg STAT STAT IV 09/08/20 10:42 09/08/20 11:31 DC 09/08/20 11:44 Furosemide (Lasix) 20 mg STK-MED ONCE .ROUTE 09/08/20 10:52 09/08/20 10:54 DC Dextrose 1,000 ml @ 100 mls/hr Q10H ONCE IV 09/08/20 14:30 09/09/20 00:29 DC 09/08/20 15:10 Vancomycin HCl 1 gm/Sodium Chloride 300 ml @ 175 mls/hr Q8H IV 09/08/20 21:00 09/09/20 08:39 DC 09/09/20 04:50 Sterile Water (Water) 1,000 ml STK-MED ONCE .ROUTE 09/09/20 04:59 09/09/20 05:01 DC Vancomycin HCl 1 gm/Sodium Chloride 250 ml @ 145.843 mls/hr Q8H IV 09/09/20 08:39 09/09/20 08:40 DC Vancomycin HCl 1 gm/Sodium Chloride 250 ml @ 175 mls/hr Q8H IV 09/09/20 13:00 10/09/20 12:59 PROCEDURE:CHEST 1 VIEW COMPARISON:[facility], CR, XRAY CHEST SINGLE VW, 09/06/2020, 08:24 AM. [facility], CR, XRAY CHEST SINGLE VW, 09/04/2020, 07:26 AM. INDICATIONS:COVID PNA, Intubation FINDINGS: LUNGS/PLEURA:Endotracheal tube is again high riding terminating approximately 7.5 cm from the chuy. More confluent opacities are seen in bilateral lungs. Scattered adjacent ground-glass opacities. No large pleural effusion. CARDIAC:Normal cardiac silhouette and normal pulmonary vascularity. MEDIASTINUM:No visible mass or adenopathy. BONES:Thoracic spondylosis. OTHER:NGT with side hole projecting over the gastric bubble. Possible left midline catheter. CONCLUSION: 1. Worsened confluent opacities in bilateral lungs compatible with worsening COVID-19 pneumonia. 2. High-riding endotracheal tube. Assessment & Plan: Assessment Hospital course: Pt is a 54 y/o M with PMHx of HTN, HLD, obesity, and anxiety. He was admitted the morning of 08/31 as a transfer from OSH for acute hypoxemic respiratory failure and COVID-19. He was started on full spectrum treatment for COVID-19 with IV Decadron, Azithromycin, Remdesivir, CCP, Zinc, and Vitamin C. On arrival to this facility, he was in mild to moderate respiratory distress and required continuous CPAP to maintain Oxygenation. He remained relatively stable throughout 08/31, but started becoming more fatigued the evening of 08/31, and was moved to the ICU for closer monitoring. In the ICU, he was continued on CPAP in an effort to avoid intubation. However, he continued to have difficulty with NIPPV and was frequently dyssynchronous, causing further desaturations. He was also noted to have Sub q emphysema in his chest and neck, which was concerning for barotrauma due to continued dyssynchrony. The morning of 09/01, he was noted to be in worsened respiratory distress and there was concern for impending respiratory collapse due to fatigue. The patient and I discussed intubation and he agreed to be electively intubated before he decompensated completely. The on- call [employer] was called and the patient was subsequently intubated without complication. He was started on Propofol and fentanyl drips and paralyzed with IV vecuronium pushes. He has tolerated mechanical ventilation rather well and his O2 sats and PaO2 have improved markedly. Prior to intubation his ABG showed normal pH and a PaO2 in the 50's. His PaO2 improved to 70's within the hour, and was 150's on his most recent ABG the evening of 09/01. Of note, I did discuss the possibility of prolonged intubation, need for tracheostomy, and whether this is something that he would want done. He agreed that tracheostomy and long-term vent weaning is something that he would be ok with if it came down to it. Since intubation, he has improved markedly. He was continued on treatment for COVID with Remdesivir, steroids, and azithromycin and has completed his courses of each of these. His inflammtory markers have been downtrending with the exception of D-dimer which is uptrending slowly. His WBC was previously trending down, but increased sharply from 15 to 19 today. He has also been fevering so his Abx were broadened out to Vanc/Cefepime this AM and repeat Blood and sputum cultures were obtained. 09/06/2020: he remained stable. still have low grade fever. blood cultures are negative. 11/27: o2 level improved with prone position. still require high vent settings. 09/08: stable. he will be placed in prone position again today. 09/09: stable. he is running fever. CXR showed worsening air space disease. Assessments: Neuro:sedated with sedatives holiday. CV:HD stable. Hx HTN but off lisinopril due to soft BP. Pulmo: Acute respiratory failure on mechanical ventilation: managed by ICU telemedicine.Keep Pplat < 30 to limit risk of pneumothorax and barotrauma. COVID-19 pneumonia: He is still on high setting, CXR showed worsening air space disease.possibly superimposed with HAP. Procalcitonin is normal. covid markers still high. - Pt has completed course of Remdesivir. - s/p 1u CCP - c/w Vanc day 5 - c/w Zosyn day 3(was on Cefepime) - continue Propofol/Fentanyl for sedation/analgesia; precedex is available for backup sedation if needed - continue IV Vecuronium 15mg q1h + IV Vec 2mg q30min PRN - trend COVID markers q48h - CXR q48h and PRN Pneumomediastinum without pneumothorax: stable. GI:TF 40cc/hr only when supine for 8 hrs. TF is held in prone position. we will chnage feeding to bolus feeding while supine. : no issues endo: Bg normal. he is off steroids. heme:he is on Lovenox 90 mg BID due to high D.Dimer. we will repeat D.Dimer in am. ID: #[id number]: fever and leukocytosis: Influenza A&B, blood culture, sputum GS and Cx. FEN: Dehydration:low input due to holding TF. we will change to bolus feeding and start D5w for 10 hour for fluid replacement. Hypokalemia:replacement. corrected calcium is normal. Sedation: propofol/precedex Analgesia: Fent VTE ppx: Lovenox GI ppx: Pepcid Diet: TF per dietary recs CODE: housekeeping lead Spent: > 40 minutes between evaluation, coordination of care, and documentation I spoke to his Amanda Sparks ([phone]) for updates. prognosis is guarded. ARMANDO OLIVARES MD Sep 09, 2020 11:21
[2020-09-09] MEDS: NS 1000ML/KCL 20MEQ 1,000 ML IV SCH ×2 (11:30→21:30)
[2020-09-09] MEDS: DIPRIVAN IV PRN ×2 (12:01→16:13)
[2020-09-09] MEDS: NORCURON IV PRN ×2 (12:01→20:00)
[2020-09-09] MEDS ORDERED: LASIX IV STA (12:29)
--- NOTE | 2020-09-09 12:34 | TELE.CONS ---
Consultation Reason for Consult: Reason for Consultation: follow up resp failure Review of Systems Constitutional: Fever ENT: Other Respiratory: Shortness of breath, SOB with excertion Allergies: Coded Allergies: Sulfa (Sulfonamide Antibiotics) (Verified Allergy, Mild, 08/31/20) Scheduled Atorvastatin 10MG (Lipitor 10MG), 1 TAB PO HS, (Reported) Bisoprolol Fumarate/Hctz (Bisoprolol-Hctz 5-6.25 Mg Tab), 1 TAB PO DAILY, (Reported) Temazepam (Restoril), 1 CAP PO HS, (Reported) VITALS REVIEW VITALS Vital Sign - Last 24 Hours 08/31/20 08/31/20 08/31/20 08/31/20 00:59 00:59 00:59 01:31 Temp 99.3 99.1 99.1 99.1 Pulse 96 96 96 89 Resp 22 22 22 22 B/P (MAP) 154/64 (94) 133/78 (96) Pulse Ox 85 85 85 O2 Delivery Non-Rebreather Non-Rebreather O2 Flow Rate 15.00 15.00 08/31/20 08/31/20 08/31/20 08/31/20 02:09 03:00 03:05 03:25 Temp 99.2 99.2 99.6 Pulse 85 86 102 Resp 23 22 22 B/P (MAP) 130/82 (98) 135/75 (95) 159/87 (111) Pulse Ox 90 91 90 O2 Delivery Non-Rebreather Bi-pap Non-Rebreather Non-Rebreather O2 Flow Rate 15.00 100.00 15.00 15.00 08/31/20 08/31/20 08/31/20 08/31/20 04:27 04:48 04:56 06:14 Temp 99.3 Pulse 92 114 85 Resp 30 42 22 B/P (MAP) 136/82 (100) Pulse Ox 86 88 90 O2 Delivery Comfort Ryne S/T Non-Rebreather S/T O2 Flow Rate 60.00 15.00 FiO2 100 100 100 08/31/20 08/31/20 08/31/20 08/31/20 08:08 08:30 08:54 08:54 Pulse 111 114 Resp 39 44 B/P (MAP) 141/91 Pulse Ox 91 91 O2 Delivery Bi-pap 11/20/08/31/20 08/31/20 08/31/20 08:57 08:57 09:03 11:27 Temp 100.0 Pulse 119 110 103 104 Resp 44 45 60 36 B/P (MAP) 141/91 (108) Pulse Ox 90 87 89 94 O2 Delivery CPAP CPAP FiO2 100 100 08/31/20 08/31/20 08/31/20 08/31/20 11:49 14:30 15:23 15:45 Temp 98.5 Pulse 111 92 91 Resp 58 49 49 B/P (MAP) 119/85 (96) Pulse Ox 89 90 90 O2 Delivery CPAP FiO2 100 08/31/20 08/31/20 08/31/20 08/31/20 15:52 16:00 16:00 16:30 Temp 97.3 98.0 Pulse 93 85 92 Resp 44 55 40 B/P (MAP) 145/95 (112) 128/78 (95) Pulse Ox 89 91 91 O2 Delivery Bi-pap 08/31/20 08/31/20 08/31/20 08/31/20 16:34 16:45 16:49 17:00 Pulse 86 86 98 89 Resp 62 34 42 B/P (MAP) 127/82 (97) Pulse Ox 90 89 88 93 08/31/20 08/31/20 08/31/20 08/31/20 17:01 17:02 17:02 17:04 Pulse 93 99 101 87 Resp 39 39 38 37 B/P (MAP) 128/78 (95) Pulse Ox 92 91 91 90 O2 Delivery CPAP FiO2 100 08/31/20 08/31/20 08/31/20 08/31/20 17:15 17:19 17:30 17:34 Pulse 83 89 91 88 Resp 78 34 32 B/P (MAP) 136/109 (118) 134/78 (96) Pulse Ox 90 87 89 88 08/31/20 08/31/20 08/31/20 08/31/20 17:45 17:49 18:00 18:02 Pulse 89 87 89 92 Resp 69 54 47 B/P (MAP) 134/91 (105) Pulse Ox 86 89 88 89 O2 Delivery CPAP FiO2 100 08/31/20 08/31/20 08/31/20 08/31/20 18:04 18:15 18:19 19:34 Pulse 84 86 77 82 Resp 43 26 39 49 B/P (MAP) 138/68 (91) 125/58 (80) 117/74 (88) Pulse Ox 88 91 90 93 08/31/20 08/31/20 08/31/20 08/31/20 19:45 19:49 20:00 20:00 Pulse 74 69 97 Resp 41 42 57 B/P (MAP) 118/69 (85) Pulse Ox 94 92 86 O2 Delivery C-Pap 08/31/20 08/31/20 08/31/20 08/31/20 20:04 20:15 20:19 20:30 Pulse 87 71 81 81 Resp 37 28 41 B/P (MAP) 121/77 (92) 124/69 (87) Pulse Ox 88 93 91 91 08/31/20 08/31/20 08/31/20 08/31/20 20:34 20:45 20:49 20:50 Temp 97.0 Pulse 78 76 84 Resp 43 48 B/P (MAP) 124/69 (87) 115/79 (91) Pulse Ox 90 93 91 08/31/20 08/31/20 08/31/20 08/31/20 21:00 21:04 21:15 21:19 Pulse 82 88 86 86 Resp 47 57 26 40 B/P (MAP) 126/84 (98) 138/72 (94) Pulse Ox 91 87 89 87 08/31/20 08/31/20 08/31/20 08/31/20 21:30 21:34 21:45 21:45 Pulse 99 92 88 98 Resp 42 33 83 B/P (MAP) 142/85 (104) Pulse Ox 88 89 91 89 O2 Delivery CPAP FiO2 100 08/31/20 08/31/20 08/31/20 09/01/20 22:44 22:46 22:46 00:00 Temp 98.4 Pulse 88 88 88 Resp 33 33 33 Pulse Ox 90 90 91 09/01/20 09/01/20 09/01/20 09/01/20 00:00 00:30 04:00 04:00 Temp 98.1 Pulse 83 Resp 41 Pulse Ox 92 O2 Delivery C-Pap CPAP C-Pap FiO2 100 09/01/20 09/01/20 09/01/20 09/01/20 04:00 04:09 04:15 04:23 Pulse 73 94 86 76 Resp 43 36 27 50 B/P (MAP) 133/71 (91) 104/49 (67) Pulse Ox 92 83 89 91 09/01/20 09/01/20 09/01/20 09/01/20 04:30 04:39 04:45 04:54 Pulse 82 96 94 Resp 42 48 B/P (MAP) 131/87 (102) 105/43 (63) Pulse Ox 91 82 86 85 09/01/20 09/01/20 09/01/20 09/01/20 05:00 05:00 05:08 05:15 Pulse 84 103 110 99 Resp 40 47 73 46 B/P (MAP) 120/75 (90) Pulse Ox 93 85 83 90 O2 Delivery CPAP FiO2 100 09/01/20 09/01/20 09/01/20 09/01/20 05:23 05:30 05:38 05:45 Pulse 102 88 94 88 Resp 28 33 47 B/P (MAP) 110/66 (81) 118/71 (87) Pulse Ox 79 82 88 91 09/01/20 09/01/20 09/01/20 09/01/20 05:53 07:15 09:36 09:36 Pulse 98 111 107 Resp 45 45 B/P (MAP) 116/76 (89) Pulse Ox 87 91 90 O2 Delivery C-Pap 09/01/20 09/01/20 09/01/20 09/01/20 09:37 10:47 11:00 11:48 Pulse 111 76 76 Resp 51 22 22 Pulse Ox 91 91 91 O2 Delivery CPAP Mechanical Ventilator FiO2 100 100 100 09/01/20 09/01/20 09/01/20 09/01/20 14:50 14:50 14:50 14:54 Pulse 74 74 76 74 Resp 22 22 22 22 Pulse Ox 94 94 91 94 FiO2 100 09/01/20 09/01/20 09/01/20 09/01/20 15:00 15:48 15:58 16:00 Pulse 102 73 75 Resp 25 24 B/P (MAP) 107/69 (82) Pulse Ox 91 95 95 O2 Delivery Mechanical Ventilator 09/01/20 09/01/20 09/01/20 09/01/20 16:01 16:04 16:07 16:10 Pulse 77 75 78 73 Resp 23 23 24 22 B/P (MAP) 104/66 (79) 102/63 (76) 104/58 (73) 102/62 (75) Pulse Ox 95 95 95 95 09/01/20 09/01/20 09/01/20 09/01/20 16:13 16:15 16:16 16:19 Pulse 72 77 77 77 Resp 21 23 23 22 B/P (MAP) 101/62 (75) 107/61 (76) 100/61 (74) Pulse Ox 95 95 95 96 09/01/20 09/01/20 09/01/20 09/01/20 16:22 16:25 16:28 16:30 Pulse 78 76 77 78 Resp 23 24 23 23 B/P (MAP) 100/60 (73) 105/61 (76) 101/65 (77) Pulse Ox 95 95 95 95 09/01/20 09/01/20 09/01/20 09/01/20 16:31 16:34 16:37 16:56 Pulse 77 77 79 73 Resp 24 24 23 22 B/P (MAP) 102/61 (75) 101/64 (76) 98/62 (74) Pulse Ox 95 96 95 93 FiO2 100 09/01/20 09/01/20 09/01/20 09/01/20 19:13 19:15 19:16 19:19 Pulse 67 79 81 73 Resp 22 24 25 B/P (MAP) 106/72 (83) 112/67 (82) 105/60 (75) Pulse Ox 96 85 91 92 09/01/20 09/01/20 09/01/20 09/01/20 19:22 19:25 19:28 19:30 Pulse 74 71 73 73 Resp 24 23 23 24 B/P (MAP) 105/60 (75) 106/61 (76) 106/62 (77) Pulse Ox 91 91 91 92 09/01/20 09/01/20 09/01/20 09/01/20 19:31 19:34 19:37 19:40 Pulse 72 72 72 71 Resp 23 23 23 23 B/P (MAP) 106/62 (77) 107/64 (78) 102/60 (74) 105/61 (76) Pulse Ox 92 92 92 92 09/01/20 09/01/20 09/01/20 09/01/20 19:43 19:45 19:46 19:49 Pulse 72 71 71 72 Resp 22 23 24 24 B/P (MAP) 108/59 (75) 107/61 (76) 106/61 (76) Pulse Ox 92 92 92 92 09/01/20 09/01/20 09/01/20 09/01/20 19:52 19:55 19:58 20:00 Pulse 72 72 73 72 Resp 23 23 23 26 B/P (MAP) 104/64 (77) 104/63 (77) 100/62 (75) Pulse Ox 92 92 91 92 FiO2 100 09/01/20 09/01/20 09/01/20 09/01/20 20:00 20:13 20:15 20:16 Pulse 72 73 73 Resp 23 23 23 B/P (MAP) 105/61 (76) 106/63 (77) Pulse Ox 90 90 90 O2 Delivery Mechanical Ventilator 09/01/20 09/01/20 09/01/20 09/01/20 20:19 20:22 20:25 20:28 Pulse 73 72 73 72 Resp 23 23 B/P (MAP) 105/63 (77) 104/62 (76) 106/61 (76) 102/62 (75) Pulse Ox 90 91 90 91 09/01/20 09/01/20 09/01/20 09/01/20 20:30 20:31 20:34 20:37 Pulse 71 72 69 73 Resp 23 23 22 22 B/P (MAP) 107/66 (80) 103/55 (71) 99/57 (71) Pulse Ox 91 91 90 90 09/01/20 09/01/20 09/01/20 09/01/20 20:40 20:43 20:45 20:46 Pulse 71 70 77 72 Resp 22 22 22 22 B/P (MAP) 105/61 (76) 103/62 (76) 111/64 (80) Pulse Ox 90 90 91 92 09/01/20 09/01/20 09/01/20 09/01/20 20:49 20:52 20:55 20:58 Pulse 73 73 67 74 Resp 22 22 22 23 B/P (MAP) 104/61 (75) 108/62 (77) 111/63 (79) 108/63 (78) Pulse Ox 92 92 93 92 09/01/20 09/01/20 09/01/20 09/01/20 21:10 21:11 21:12 21:12 Pulse 74 74 74 74 Resp 22 22 22 22 Pulse Ox 91 91 91 91 FiO2 100 09/01/20 09/01/20 09/01/20 09/01/20 21:46 21:49 21:52 21:55 Pulse 80 80 79 79 Resp 22 22 22 22 B/P (MAP) 106/62 (77) 110/63 (79) 109/63 (78) 110/58 (75) Pulse Ox 91 92 91 91 09/01/20 09/01/20 09/01/20 09/01/20 21:58 22:00 22:01 22:04 Pulse 79 78 80 80 Resp 22 22 22 23 B/P (MAP) 108/59 (75) 108/64 (79) 106/60 (75) Pulse Ox 92 92 92 92 09/01/20 09/01/20 09/01/20 09/01/20 22:07 22:10 22:13 22:15 Pulse 81 79 77 80 Resp 25 24 24 23 B/P (MAP) 107/61 (76) 107/63 (78) 110/65 (80) Pulse Ox 92 92 92 92 09/01/20 09/01/20 09/01/20 09/01/20 22:16 22:19 22:22 22:25 Pulse 79 80 80 77 Resp 24 25 24 25 B/P (MAP) 106/60 (75) 111/61 (78) 109/62 (78) 109/61 (77) Pulse Ox 92 92 92 92 09/01/20 09/01/20 09/01/20 09/01/20 22:28 22:30 22:31 22:34 Pulse 77 80 78 78 Resp 24 24 24 23 B/P (MAP) 110/67 (81) 106/63 (77) 110/63 (79) Pulse Ox 92 92 92 92 09/01/20 09/01/20 09/01/20 09/01/20 23:10 23:30 23:31 23:34 Pulse 76 77 74 76 Resp 22 22 23 26 B/P (MAP) 113/62 (79) 107/62 (77) Pulse Ox 92 92 92 92 FiO2 100 09/01/20 09/01/20 09/01/20 09/01/20 23:37 23:40 23:43 23:45 Pulse 76 76 73 75 Resp 26 26 26 27 B/P (MAP) 109/61 (77) 109/58 (75) 112/62 (79) Pulse Ox 92 93 93 93 09/01/20 09/01/20 09/01/20 09/01/20 23:46 23:49 23:52 23:55 Pulse 74 74 83 72 Resp B/P (MAP) 112/59 (76) 113/66 (82) 116/67 (83) 117/66 (83) Pulse Ox 93 93 94 93 09/01/20 09/02/20 09/02/20 09/02/20 23:58 00:00 00:00 00:13 Pulse 78 80 75 Resp B/P (MAP) 118/65 (82) 114/66 (82) Pulse Ox 93 93 93 O2 Delivery Mechanical Ventilator FiO2 100 09/02/20 09/02/20 09/02/20 09/02/20 00:15 00:16 00:19 00:22 Pulse 76 77 75 75 Resp B/P (MAP) 118/65 (82) 114/67 (83) 119/63 (81) Pulse Ox 93 93 92 93 09/02/20 09/02/20 09/02/20 09/02/20 00:25 00:28 00:30 00:31 Pulse 76 75 76 77 Resp B/P (MAP) 117/68 (84) 115/65 (82) 115/64 (81) Pulse Ox 93 92 92 92 09/02/20 09/02/20 09/02/20 09/02/20 00:34 00:37 00:40 00:43 Pulse 77 80 79 80 Resp B/P (MAP) 112/62 (79) 110/63 (79) 110/63 (79) 107/64 (78) Pulse Ox 93 92 92 92 09/02/20 09/02/20 09/02/20 09/02/20 00:45 00:46 00:49 00:52 Pulse 82 81 79 80 Resp B/P (MAP) 108/63 (78) 109/61 (77) 107/67 (80) Pulse Ox 92 92 92 93 09/02/20 09/02/20 09/02/20 09/02/20 00:55 00:58 01:13 01:15 Pulse 80 77 80 73 Resp 24 25 35 22 B/P (MAP) 109/65 (80) 109/63 (78) 114/60 (78) Pulse Ox 92 93 88 91 09/02/20 09/02/20 09/02/20 09/02/20 01:16 01:19 01:22 01:25 Pulse 76 77 75 74 Resp 22 B/P (MAP) 107/64 (78) 108/59 (75) 110/63 (79) 109/62 (78) Pulse Ox 92 92 92 93 09/02/20 09/02/20 09/02/20 09/02/20 01:28 01:30 01:31 01:34 Pulse 73 73 75 77 Resp 22 B/P (MAP) 110/61 (77) 109/63 (78) 107/61 (76) Pulse Ox 92 92 92 93 09/02/20 09/02/20 09/02/20 09/02/20 01:37 01:40 01:43 01:45 Pulse 76 76 75 74 Resp 22 B/P (MAP) 105/64 (78) 105/62 (76) 104/63 (77) Pulse Ox 93 92 92 92 09/02/20 09/02/20 09/02/20 09/02/20 01:46 01:49 01:52 01:55 Pulse 75 77 79 75 Resp 23 B/P (MAP) 113/62 (79) 108/64 (79) 107/61 (76) 107/62 (77) Pulse Ox 92 93 93 93 09/02/20 09/02/20 09/02/20 09/02/20 01:58 02:20 02:25 02:28 Pulse 76 79 74 71 Resp 18 22 22 B/P (MAP) 110/61 (77) 104/61 (75) 104/59 (74) Pulse Ox 92 93 93 93 FiO2 100 09/02/20 09/02/20 09/02/20 09/02/20 02:30 02:31 02:34 02:37 Pulse 73 70 69 70 Resp 22 B/P (MAP) 104/59 (74) 103/60 (74) 102/58 (73) Pulse Ox 93 93 93 93 09/02/20 09/02/20 09/02/20 09/02/20 02:40 02:43 02:45 02:46 Pulse 70 73 73 71 Resp B/P (MAP) 105/60 (75) 103/59 (74) 102/60 (74) Pulse Ox 93 93 93 93 09/02/20 09/02/20 09/02/20 09/02/20 02:49 02:52 02:55 02:58 Pulse 72 74 75 72 Resp B/P (MAP) 105/60 (75) 101/59 (73) 102/56 (71) 103/55 (71) Pulse Ox 93 93 93 93 09/02/20 09/02/20 09/02/20 09/02/20 03:00 03:01 03:04 03:07 Pulse 73 71 69 70 Resp B/P (MAP) 102/58 (73) 100/57 (71) 99/57 (71) Pulse Ox 93 93 93 93 09/02/20 09/02/20 09/02/20 09/02/20 03:10 03:13 03:22 03:25 Pulse 70 71 71 69 Resp B/P (MAP) 99/59 (72) 102/56 (71) 100/60 (73) 102/60 (74) Pulse Ox 93 93 93 93 09/02/20 09/02/20 09/02/20 09/02/20 03:28 03:29 03:31 03:34 Pulse 69 71 70 69 Resp B/P (MAP) 102/58 (73) 103/56 (72) 101/60 (74) Pulse Ox 93 93 93 93 09/02/20 09/02/20 09/02/20 09/02/20 03:37 03:40 03:43 03:44 Pulse 71 69 72 70 Resp B/P (MAP) 105/61 (76) 105/54 (71) 102/58 (73) Pulse Ox 93 93 93 92 09/02/20 09/02/20 09/02/20 09/02/20 03:46 03:49 03:52 03:55 Pulse 69 71 74 75 Resp B/P (MAP) 104/59 (74) 101/56 (71) 104/58 (73) 102/59 (73) Pulse Ox 93 93 93 93 09/02/20 09/02/20 09/02/20 09/02/20 03:58 03:59 04:00 04:00 Pulse 72 76 80 Resp B/P (MAP) 104/56 (72) Pulse Ox 92 93 93 O2 Delivery Mechanical Ventilator FiO2 100 09/02/20 09/02/20 09/02/20 09/02/20 04:01 04:04 04:04 04:08 Pulse 75 87 Resp 22 22 B/P (MAP) 103/61 (75) 107/56 (73) 107/56 (73) Pulse Ox 92 90 90 94 09/02/20 09/02/20 09/02/20 09/02/20 04:08 04:09 04:09 04:22 Temp 98.8 Pulse 87 Resp 22 B/P (MAP) 123/65 (84) Pulse Ox 94 92 92 09/02/20 09/02/20 09/02/20 09/02/20 04:24 04:28 04:30 04:31 Temp 98.8 98.6 98.6 98.6 Pulse 123 120 126 115 Resp B/P (MAP) 128/73 (91) 121/77 (92) 129/70 (89) Pulse Ox 97 98 98 98 09/02/20 09/02/20 09/02/20 09/02/20 04:34 04:37 04:40 04:43 Temp 98.6 98.6 98.6 98.6 Pulse 114 105 97 94 Resp B/P (MAP) 127/83 (98) 127/82 (97) 118/63 (81) 115/64 (81) Pulse Ox 97 98 97 97 09/02/20 09/02/20 09/02/20 09/02/20 04:45 04:46 04:49 04:49 Temp 98.6 98.6 98.6 Pulse 94 92 87 118 Resp B/P (MAP) 118/72 (87) 139/87 (104) Pulse Ox 97 96 94 98 FiO2 100 09/02/20 09/02/20 09/02/20 09/02/20 04:52 04:55 04:58 05:07 Temp 98.6 98.6 98.6 98.6 Pulse 122 116 104 90 Resp 34 36 32 28 B/P (MAP) 144/95 (111) 130/74 (92) 123/66 (85) 113/67 (82) Pulse Ox 98 98 98 97 09/02/20 09/02/20 09/02/20 09/02/20 05:10 05:13 05:15 05:16 Temp 98.6 98.6 98.6 98.6 Pulse 105 99 122 104 Resp B/P (MAP) 130/76 (94) 129/77 (94) 129/72 (91) Pulse Ox 97 97 98 97 09/02/20 09/02/20 09/02/20 09/02/20 05:19 05:22 05:25 05:28 Temp 98.6 98.6 98.6 98.6 Pulse 104 112 113 95 Resp B/P (MAP) 125/74 (91) 140/95 (110) 136/70 (92) 119/62 (81) Pulse Ox 98 98 98 97 09/02/20 09/02/20 09/02/20 09/02/20 05:30 05:31 05:34 05:37 Temp 98.6 98.6 98.6 98.6 Pulse 93 91 92 93 Resp B/P (MAP) 113/65 (81) 113/62 (79) 118/66 (83) Pulse Ox 97 97 97 97 09/02/20 09/02/20 09/02/20 09/02/20 05:40 05:43 05:45 05:46 Temp 98.6 98.6 98.6 98.6 Pulse 105 103 96 95 Resp B/P (MAP) 125/74 (91) 136/83 (100) 116/66 (83) Pulse Ox 98 98 98 98 09/02/20 09/02/20 09/02/20 09/02/20 05:49 05:52 07:00 07:00 Temp 98.6 98.6 Pulse 90 91 80 Resp B/P (MAP) 116/64 (81) 111/57 (75) Pulse Ox 97 97 93 O2 Delivery Mechanical Ventilator FiO2 100 09/02/20 09/02/20 09/02/20 09/02/20 07:21 07:21 07:28 07:30 Temp 99.0 99.0 Pulse 98 98 83 87 Resp B/P (MAP) 112/65 (81) Pulse Ox 97 97 97 97 FiO2 100 09/02/20 09/02/20 09/02/20 09/02/20 07:31 07:34 07:37 07:40 Temp 99.0 99.0 99.0 99.1 Pulse 80 80 80 78 Resp 23 B/P (MAP) 106/60 (75) 108/62 (77) 107/56 (73) 112/65 (81) Pulse Ox 97 97 97 97 09/02/20 09/02/20 09/02/20 09/02/20 07:43 07:45 07:46 07:49 Temp 99.1 99.1 99.1 99.1 Pulse 81 78 85 84 Resp B/P (MAP) 106/58 (74) 108/60 (76) 107/60 (76) Pulse Ox 97 97 97 97 09/02/20 09/02/20 09/02/20 09/02/20 07:52 07:55 07:58 08:00 Temp 99.1 99.1 99.3 99.1 Pulse 83 100 94 87 Resp 34 43 26 45 B/P (MAP) 106/59 (75) 113/71 (85) 107/67 (80) Pulse Ox 97 97 97 97 09/02/20 09/02/20 09/02/20 09/02/20 08:01 08:04 08:07 08:10 Temp 99.1 99.3 99.1 99.1 Pulse 84 84 83 83 Resp 36 36 25 28 B/P (MAP) 105/57 (73) 99/60 (73) 103/62 (76) 101/51 (68) Pulse Ox 97 96 97 96 09/02/20 09/02/20 09/02/20 09/02/20 08:13 08:30 08:31 08:34 Temp 99.1 99.3 99.3 99.3 Pulse 84 84 83 82 Resp 24 B/P (MAP) 102/53 (69) 104/59 (74) 103/56 (72) Pulse Ox 96 96 96 96 1109/02/20 09/02/20 09/02/20 08:37 08:40 08:43 08:45 Temp 99.3 99.3 99.3 99.3 Pulse 80 84 84 83 Resp B/P (MAP) 97/54 (68) 103/54 (70) 97/58 (71) Pulse Ox 96 96 96 96 09/02/20 09/02/20 09/02/20 09/02/20 08:46 08:49 08:52 08:55 Temp 99.3 99.3 99.3 99.3 Pulse 82 83 83 84 Resp B/P (MAP) 97/55 (69) 97/55 (69) 100/58 (72) 96/59 (71) Pulse Ox 96 96 96 96 09/02/20 09/02/20 09/02/20 09/02/20 08:58 09:00 09:01 09:04 Temp 99.3 99.3 99.5 99.3 Pulse 83 90 95 98 Resp B/P (MAP) 102/57 (72) 130/76 (94) 133/81 (98) Pulse Ox 96 97 97 97 09/02/20 09/02/20 09/02/20 09/02/20 09:06 09:06 09:07 09:10 Temp 99.3 99.3 Pulse 99 98 99 95 Resp B/P (MAP) 135/76 (95) 136/79 (98) Pulse Ox 97 97 97 98 09/02/20 09/02/20 09/02/20 09/02/20 09:13 09:15 09:15 09:16 Temp 99.3 99.3 99.3 99.3 Pulse 85 102 102 84 Resp B/P (MAP) 145/91 (109) 131/78 (95) Pulse Ox 98 98 98 97 09/02/20 09/02/20 09/02/20 09/02/20 09:16 09:30 09:32 09:45 Temp 99.3 99.1 99.1 99.3 Pulse 84 82 84 80 Resp B/P (MAP) 131/78 (95) 114/63 (80) Pulse Ox 97 97 98 98 11/22/20 09/02/20 09/02/20 09/02/20 09:47 09:59 10:00 10:02 Temp 99.3 99.3 99.3 Pulse 79 83 81 80 Resp B/P (MAP) 114/62 (79) 110/61 (77) Pulse Ox 98 98 98 98 FiO2 100 09/02/20 09/02/20 09/02/20 09/02/20 10:15 10:15 10:17 10:17 Temp 99.3 99.3 99.3 99.3 Pulse 84 84 83 83 Resp B/P (MAP) 114/61 (78) 114/61 (78) Pulse Ox 97 97 98 98 09/02/20 09/02/20 09/02/20 09/02/20 10:30 10:30 10:32 10:45 Temp 99.3 99.3 99.3 Pulse 84 82 85 Resp B/P (MAP) 111/61 (78) Pulse Ox 97 97 97 FiO2 90 09/02/20 09/02/20 09/02/20 09/02/20 10:47 11:00 11:02 11:15 Temp 99.3 99.3 99.5 99.5 Pulse 84 89 87 91 Resp B/P (MAP) 108/60 (76) 111/61 (78) Pulse Ox 97 97 96 95 09/02/20 09/02/20 09/02/20 09/02/20 11:17 11:26 11:26 11:30 Temp 99.5 Pulse 87 80 80 Resp B/P (MAP) 111/67 (82) Pulse Ox 95 93 93 O2 Delivery Mechanical Ventilator FiO2 100 90 09/02/20 09/02/20 09/02/20 09/02/20 11:30 11:32 11:39 11:45 Temp 99.5 99.5 99.5 Pulse 83 85 90 85 Resp B/P (MAP) 118/68 (85) Pulse Ox 96 95 97 97 FiO2 90 09/02/20 09/02/20 09/02/20 09/02/20 11:45 11:47 11:47 12:00 Temp 99.5 99.5 99.5 99.5 Pulse 85 89 89 84 Resp B/P (MAP) 126/69 (88) 126/69 (88) Pulse Ox 97 96 96 97 09/02/20 09/02/20 09/02/20 09/02/20 12:02 12:15 12:17 12:30 Temp 99.5 99.5 99.5 99.3 Pulse 83 81 82 86 Resp B/P (MAP) 121/68 (85) 120/67 (84) Pulse Ox 97 97 97 96 09/02/20 09/02/20 09/02/20 09/02/20 12:32 12:45 12:47 13:00 Temp 99.3 99.3 99.3 99.3 Pulse 81 82 79 82 Resp B/P (MAP) 116/71 (86) 113/70 (84) Pulse Ox 96 96 96 96 09/02/20 09/02/20 09/02/20 09/02/20 13:02 13:47 14:00 14:02 Temp 99.3 99.3 99.3 99.5 Pulse 81 75 79 73 Resp B/P (MAP) 111/65 (80) 113/66 (82) 113/65 (81) Pulse Ox 95 97 97 96 09/02/20 09/02/20 09/02/20 09/02/20 14:11 14:15 14:17 14:30 Temp 99.5 99.5 99.5 Pulse 78 80 76 81 Resp B/P (MAP) 119/71 (87) Pulse Ox 98 96 97 95 FiO2 90 09/02/20 09/02/20 09/02/20 09/02/20 14:32 14:45 14:47 15:00 Temp 99.5 99.7 99.7 99.7 Pulse 79 77 78 87 Resp B/P (MAP) 112/67 (82) 115/68 (84) Pulse Ox 96 96 96 09/02/20 09/02/20 09/02/20 09/02/20 15:02 15:15 15:17 15:30 Temp 99.7 99.7 99.7 99.7 Pulse 66 69 67 76 Resp B/P (MAP) 119/67 (84) 119/70 (86) Pulse Ox 93 96 96 97 09/02/20 09/02/20 09/02/20 09/02/20 15:32 15:45 15:47 15:48 Temp 99.7 99.7 99.7 Pulse 76 76 80 78 Resp B/P (MAP) 115/69 (84) 116/67 (83) Pulse Ox 97 97 97 96 09/02/20 09/02/20 09/02/20 09/02/20 15:48 15:51 16:00 16:02 Temp 99.9 99.9 Pulse 78 77 76 77 Resp B/P (MAP) 113/70 (84) Pulse Ox 96 97 97 97 FiO2 90 09/02/20 09/02/20 09/02/20 09/02/20 16:15 16:17 16:26 16:26 Temp 99.9 99.9 Pulse 79 79 80 Resp 09 23 27 B/P (MAP) 113/68 (83) Pulse Ox 97 97 93 O2 Delivery Mechanical Ventilator FiO2 90 09/02/20 09/02/20 09/02/20 09/02/20 16:30 16:45 16:47 17:00 Temp 100.0 100.0 100.0 100.0 Pulse 82 80 78 78 Resp B/P (MAP) 115/65 (82) Pulse Ox 97 97 97 97 09/02/20 09/02/20 09/02/20 09/02/20 17:02 17:15 17:17 17:29 Temp 100.0 100.2 100.2 Pulse 75 74 75 69 Resp 04 22 22 B/P (MAP) 120/73 (89) 116/73 (87) Pulse Ox 97 97 97 98 FiO2 90 09/02/20 09/02/20 09/02/20 09/02/20 17:30 17:30 17:32 17:45 Temp 100.2 100.2 100.4 Pulse 69 74 69 71 Resp B/P (MAP) 118/73 (88) Pulse Ox 98 97 97 97 O2 Delivery Mechanical Ventilator FiO2 90 09/02/20 09/02/20 09/02/20 09/02/20 17:47 18:00 18:02 18:15 Temp 100.4 100.4 100.4 100.4 Pulse 70 68 68 72 Resp B/P (MAP) 118/70 (86) 117/72 (87) Pulse Ox 97 98 98 98 09/02/20 09/02/20 09/02/20 09/02/20 18:17 18:47 19:02 19:17 Temp 100.4 100.4 100.4 100.4 Pulse 68 63 63 61 Resp 14 B/P (MAP) 117/71 (86) 119/74 (89) 117/76 (90) 121/77 (92) Pulse Ox 98 97 97 97 09/02/20 09/02/20 09/02/20 09/02/20 19:32 19:47 20:00 20:00 Temp 100.4 100.6 Pulse 61 60 62 Resp B/P (MAP) 121/72 (88) 117/73 (88) Pulse Ox 97 97 99 O2 Delivery Mechanical Ventilator 09/02/20 09/02/20 09/02/20 09/02/20 20:00 20:00 20:00 20:02 Temp 100.6 Pulse 60 57 57 63 Resp B/P (MAP) 116/70 (85) Pulse Ox 96 98 98 98 FiO2 90 90 09/02/20 09/02/20 09/02/20 09/02/20 20:17 20:32 20:47 21:02 Temp 100.6 100.6 100.6 100.6 Pulse 59 59 60 59 Resp B/P (MAP) 120/72 (88) 116/71 (86) 117/71 (86) 117/73 (88) Pulse Ox 98 98 98 98 09/02/20 09/02/20 09/02/20 09/02/20 21:17 21:32 21:47 22:02 Temp 100.8 100.8 100.8 100.8 Pulse 58 59 61 58 Resp B/P (MAP) 122/73 (89) 117/69 (85) 116/72 (87) 117/72 (87) Pulse Ox 98 97 97 97 09/02/20 09/02/20 09/02/20 09/02/20 22:17 22:30 22:37 22:47 Temp 100.8 100.6 100.4 Pulse 55 68 81 60 Resp 22 22 18 22 B/P (MAP) 125/72 (89) 130/61 (84) 133/75 (94) Pulse Ox 98 96 75 97 FiO2 90 09/02/20 09/02/20 09/02/20 09/02/20 23:02 23:11 23:11 23:17 Temp 100.2 100.0 Pulse 65 68 63 Resp 22 B/P (MAP) 133/76 (95) 129/70 (89) Pulse Ox 100 96 100 O2 Delivery Mechanical Ventilator FiO2 90 09/02/20 09/02/20 09/03/20 09/03/20 23:32 23:47 00:02 00:17 Temp 100.0 100.0 100.0 100.0 Pulse 65 66 60 60 Resp 26 B/P (MAP) 120/62 (81) 112/66 (81) 118/69 (85) 118/74 (89) Pulse Ox 100 100 99 100 09/03/20 09/03/20 09/03/20 09/03/20 00:32 00:47 01:00 01:02 Temp 100.0 99.9 99.9 Pulse 59 59 62 58 Resp B/P (MAP) 117/72 (87) 116/66 (83) 118/66 (83) Pulse Ox 100 100 99 100 FiO2 90 09/03/20 09/03/20 09/03/20 09/03/20 01:17 01:32 02:02 02:17 Temp 99.9 99.9 99.9 99.9 Pulse 60 58 58 57 Resp B/P (MAP) 116/69 (85) 114/65 (81) 111/65 (80) 113/65 (81) Pulse Ox 100 100 99 100 09/03/20 09/03/20 09/03/20 09/03/20 02:32 02:47 03:00 03:00 Temp 99.9 99.9 Pulse 58 61 59 Resp B/P (MAP) 114/67 (83) 109/65 (80) Pulse Ox 100 99 100 O2 Delivery Mechanical Ventilator FiO2 90 09/03/20 09/03/20 09/03/20 09/03/20 03:00 03:00 03:00 03:02 Temp 99.9 Pulse 59 59 68 59 Resp 32 32 32 37 B/P (MAP) 130/72 (91) Pulse Ox 98 98 99 100 FiO2 90 09/03/20 09/03/20 09/03/20 09/03/20 03:18 03:48 04:02 04:17 Temp 99.5 Pulse 81 91 87 90 Resp 29 36 24 29 B/P (MAP) 125/76 (92) 93/58 (70) 107/67 (80) 112/69 (83) Pulse Ox 99 93 100 95 09/03/20 09/03/20 09/03/20 09/03/20 04:32 04:47 05:02 05:17 Pulse 63 59 66 61 Resp 27 24 26 26 B/P (MAP) 117/69 (85) 116/68 (84) 110/63 (79) 110/66 (81) Pulse Ox 100 100 100 100 09/03/20 09/03/20 09/03/20 09/03/20 05:32 05:47 05:50 05:50 Pulse 63 67 68 Resp 24 25 49 25 B/P (MAP) 119/60 (79) 108/66 (80) Pulse Ox 100 99 90 99 FiO2 90 09/03/20 09/03/20 09/03/20 09/03/20 06:02 06:17 08:00 08:00 Pulse 65 71 53 Resp 26 27 22 B/P (MAP) 110/65 (80) 106/66 (79) Pulse Ox 100 100 100 O2 Delivery Mechanical Ventilator FiO2 70 09/03/20 09/03/20 09/03/20 09/03/20 08:06 08:06 08:07 08:17 Pulse 61 61 61 61 Resp 26 26 25 25 Pulse Ox 98 98 98 98 O2 Delivery Mechanical Ventilator FiO2 90 90 09/03/20 09/03/20 09/03/20 09/03/20 10:21 12:00 12:00 13:50 Pulse 75 53 75 Resp 36 22 22 Pulse Ox 99 100 99 O2 Delivery Mechanical Ventilator FiO2 80 70 80 09/03/20 09/03/20 09/03/20 09/03/20 15:24 15:24 15:35 16:00 Pulse 58 75 58 53 Resp 31 22 31 22 Pulse Ox 99 99 99 100 FiO2 80 70 09/03/20 09/03/20 09/03/20 09/03/20 16:00 16:17 16:30 16:32 Temp 99.7 99.7 99.7 Pulse 63 57 60 Resp 50 48 82 B/P (MAP) 141/77 (98) 144/82 (102) Pulse Ox 99 100 99 O2 Delivery Mechanical Ventilator 09/03/20 09/03/20 09/03/20 09/03/20 16:45 16:47 17:00 17:02 Temp 99.7 99.7 99.7 99.7 Pulse 57 55 56 54 Resp 49 42 28 37 B/P (MAP) 145/79 (101) 143/79 (100) Pulse Ox 100 100 100 100 09/03/20 09/03/20 09/03/20 09/03/20 17:15 17:17 17:30 17:32 Temp 99.7 99.7 99.7 99.7 Pulse 70 65 57 60 Resp 30 B/P (MAP) 128/65 (86) 129/66 (87) Pulse Ox 99 100 100 100 09/03/20 09/03/20 09/03/20 09/03/20 17:45 17:47 17:52 18:00 Temp 99.5 99.5 99.5 Pulse 54 54 53 53 Resp 22 B/P (MAP) 123/67 (85) Pulse Ox 100 100 100 100 FiO2 80 09/03/20 09/03/20 09/03/20 09/03/20 18:02 18:06 18:15 18:17 Temp 99.5 99.5 99.7 99.7 Pulse 52 54 53 53 Resp B/P (MAP) 129/67 (87) 126/66 (86) 128/68 (88) Pulse Ox 100 100 100 100 09/03/20 09/03/20 09/03/20 09/03/20 18:21 19:21 19:21 19:21 Temp 99.7 100.0 Pulse 53 52 52 Resp B/P (MAP) 130/72 (91) 131/74 (93) Pulse Ox 100 100 100 O2 Delivery Mechanical Ventilator FiO2 70 09/03/20 09/03/20 09/03/20 09/03/20 19:36 19:51 20:00 20:00 Temp 100.0 100.0 Pulse 53 64 59 64 Resp 25 30 22 22 B/P (MAP) 126/72 (90) 125/68 (87) Pulse Ox 100 100 99 99 FiO2 70 09/03/20 09/03/20 09/03/20 09/03/20 20:00 20:00 20:06 20:21 Temp 99.9 100.0 Pulse 59 59 78 64 Resp 25 B/P (MAP) 128/90 (103) 136/60 (85) Pulse Ox 99 99 99 100 O2 Delivery Mechanical Ventilator FiO2 70 09/03/20 09/03/20 09/03/20 09/03/20 20:36 20:51 21:06 21:15 Temp 99.9 99.9 99.7 99.7 Pulse 54 59 69 62 Resp B/P (MAP) 123/62 (82) 126/74 (91) 117/63 (81) Pulse Ox 100 99 98 100 09/03/20 09/03/20 09/03/20 09/03/20 21:21 21:30 21:36 21:51 Temp 99.7 99.7 99.7 99.9 Pulse 62 63 61 58 Resp 18 B/P (MAP) 123/69 (87) 126/72 (90) 128/75 (92) Pulse Ox 100 100 100 100 09/03/20 09/03/20 09/03/20 09/03/20 22:06 22:06 22:21 22:36 Temp 99.9 99.9 99.9 Pulse 57 59 56 57 Resp 15 23 B/P (MAP) 128/70 (89) 133/73 (93) 135/82 (99) Pulse Ox 100 100 100 100 FiO2 70 09/03/20 09/03/20 09/03/20 09/03/20 22:51 23:03 23:03 23:06 Temp 100.0 100.0 Pulse 57 60 62 Resp 13 B/P (MAP) 133/74 (93) 125/71 (89) Pulse Ox 100 100 100 O2 Delivery Mechanical Ventilator FiO2 70 09/03/20 09/03/20 09/03/20 09/04/20 23:21 23:37 23:51 00:06 Temp 100.2 100.2 100.2 100.0 Pulse 75 93 75 65 Resp 9 63 22 24 B/P (MAP) 116/63 (80) 152/119 (130) 129/69 (89) 136/70 (92) Pulse Ox 100 88 100 100 09/04/20 09/04/20 09/04/20 09/04/20 00:21 00:36 00:51 01:00 Temp 100.0 100.2 100.2 Pulse 80 61 56 55 Resp 35 24 23 22 B/P (MAP) 136/69 (91) 128/71 (90) 131/72 (91) Pulse Ox 99 98 99 100 FiO2 70 09/04/20 09/04/20 09/04/20 09/04/20 01:06 01:21 01:36 01:51 Temp 100.4 100.4 100.4 100.4 Pulse 58 56 56 58 Resp 22 B/P (MAP) 131/75 (93) 132/72 (92) 130/76 (94) 127/73 (91) Pulse Ox 100 100 100 100 09/04/20 09/04/20 09/04/20 09/04/20 02:06 02:21 02:30 02:30 Temp 100.6 100.6 Pulse 68 64 64 64 Resp 18 20 25 25 B/P (MAP) 120/68 (85) 122/67 (85) Pulse Ox 100 100 99 99 FiO2 70 09/04/20 09/04/20 09/04/20 09/04/20 02:30 02:36 02:51 03:06 Temp 100.6 100.8 100.8 Pulse 64 60 66 65 Resp 20 25 19 B/P (MAP) 123/67 (85) 122/69 (86) 120/66 (84) Pulse Ox 100 100 99 100 09/04/20 09/04/20 09/04/20 09/04/20 03:11 03:11 03:21 03:36 Temp 100.8 100.6 Pulse 65 64 63 Resp 21 19 29 B/P (MAP) 126/67 (86) 121/67 (85) Pulse Ox 100 100 99 O2 Delivery Mechanical Ventilator FiO2 70 09/04/20 09/04/20 09/04/20 09/04/20 03:51 04:06 04:21 04:36 Temp 100.4 100.4 100.4 100.4 Pulse 56 55 56 72 Resp 25 8 25 33 B/P (MAP) 128/67 (87) 126/74 (91) 123/69 (87) 113/67 (82) Pulse Ox 99 100 100 97 09/04/20 09/04/20 09/04/20 09/04/20 04:43 04:51 05:06 05:21 Temp 100.2 100.4 100.2 Pulse 60 77 82 68 Resp 25 38 39 32 B/P (MAP) 113/63 (80) 116/71 (86) 112/58 (76) Pulse Ox 100 93 93 92 FiO2 70 09/04/20 09/04/20 09/04/20 09/04/20 05:36 05:51 06:00 06:06 Temp 100.2 100.2 100.2 Pulse 59 58 57 59 Resp 23 B/P (MAP) 121/66 (84) 119/72 (88) 115/66 (82) Pulse Ox 96 97 97 98 FiO2 70 09/04/20 09/04/20 09/04/20 09/04/20 06:21 06:36 08:00 08:00 Temp 100.4 100.4 Pulse 69 74 53 Resp 25 27 22 B/P (MAP) 110/63 (79) 110/60 (77) Pulse Ox 98 98 100 O2 Delivery Mechanical Ventilator FiO2 70 09/04/20 09/04/20 09/04/20 09/04/20 08:11 08:11 08:11 08:11 Pulse 66 74 66 66 Resp 25 25 Pulse Ox 94 98 94 94 O2 Delivery Mechanical Ventilator FiO2 70 70 09/04/20 09/04/20 09/04/20 09/04/20 10:11 10:26 10:33 10:41 Temp 100.0 100.4 100.4 Pulse 75 71 78 70 Resp 26 B/P (MAP) 101/58 111/60 103/60 Pulse Ox 98 FiO2 80 09/04/20 09/04/20 09/04/20 09/04/20 11:01 11:31 12:00 12:00 Temp 100.3 100.3 Pulse 79 67 53 Resp 28 22 B/P (MAP) 111/60 109/59 Pulse Ox 100 O2 Delivery Mechanical Ventilator FiO2 80 09/04/20 09/04/20 09/04/20 09/04/20 13:06 13:15 13:21 13:30 Temp 100.4 100.4 100.4 100.2 Pulse 72 76 73 69 Resp 54 42 25 27 B/P (MAP) 121/70 (87) 115/64 (81) Pulse Ox 98 97 97 95 09/04/20 09/04/20 09/04/20 09/04/20 13:36 13:45 13:51 14:00 Temp 100.0 100.0 100.0 100.0 Pulse 68 75 66 71 Resp 30 36 35 48 B/P (MAP) 117/61 (79) 120/72 (88) Pulse Ox 95 95 93 95 09/04/20 09/04/20 09/04/20 09/04/20 14:06 14:09 14:09 14:09 Temp 100.0 Pulse 67 105 105 105 Resp 88 35 35 35 B/P (MAP) 124/60 (81) Pulse Ox 94 94 94 94 FiO2 80 09/04/20 09/04/20 09/04/20 09/04/20 14:15 14:21 14:30 14:36 Temp 100.0 100.0 100.0 99.9 Pulse 67 60 74 62 Resp 28 B/P (MAP) 117/68 (84) 127/70 (89) Pulse Ox 91 92 92 93 09/04/20 09/04/20 09/04/20 09/04/20 14:45 14:51 15:00 15:06 Temp 99.9 99.9 99.7 99.7 Pulse 63 60 68 64 Resp 22 96 22 22 B/P (MAP) 121/66 (84) 122/68 (86) Pulse Ox 96 98 99 100 09/04/20 09/04/20 09/04/20 09/04/20 15:15 15:21 15:36 15:45 Temp 99.7 99.7 99.5 99.5 Pulse 61 59 57 57 Resp 22 22 22 22 B/P (MAP) 122/69 (86) 118/72 (87) Pulse Ox 100 100 100 100 09/04/20 09/04/20 09/04/20 09/04/20 15:51 16:00 16:00 16:00 Temp 99.5 99.5 Pulse 56 53 58 Resp 26 22 23 B/P (MAP) 117/68 (84) Pulse Ox 100 100 100 O2 Delivery Mechanical Ventilator FiO2 80 09/04/20 09/04/20 09/04/20 09/04/20 16:06 16:15 16:21 16:30 Temp 99.3 99.3 99.3 99.5 Pulse 68 77 80 73 Resp 27 26 33 37 B/P (MAP) 136/75 (95) 131/67 (88) Pulse Ox 99 97 96 96 09/04/20 09/04/20 09/04/20 09/04/20 16:36 16:45 16:45 16:51 Temp 99.5 99.5 99.5 Pulse 73 74 80 69 Resp 38 22 22 22 B/P (MAP) 132/76 (94) 119/68 (85) Pulse Ox 95 96 95 96 FiO2 80 09/04/20 09/04/20 09/04/20 09/04/20 17:00 17:06 17:15 17:21 Temp 99.5 99.5 99.5 99.5 Pulse 65 66 61 63 Resp 22 B/P (MAP) 121/72 (88) 119/71 (87) Pulse Ox 96 97 98 98 09/04/20 09/04/20 09/04/20 09/04/20 17:30 17:36 17:45 17:51 Temp 99.5 99.3 99.3 99.3 Pulse 59 57 56 55 Resp 22 22 22 B/P (MAP) 115/68 (84) 116/71 (86) Pulse Ox 99 99 99 99 09/04/20 09/04/20 09/04/20 09/04/20 19:00 19:00 19:06 19:21 Temp 98.6 98.6 Pulse 50 50 52 Resp 22 22 B/P (MAP) 120/68 (85) 127/67 (87) Pulse Ox 100 98 98 O2 Delivery Mechanical Ventilator FiO2 80 09/04/20 09/04/20 09/04/20 09/04/20 19:36 19:51 20:00 20:00 Temp 98.6 98.6 Pulse 50 52 50 50 Resp 22 22 22 B/P (MAP) 120/75 (90) 115/65 (82) Pulse Ox 99 99 98 98 O2 Delivery Mechanical Ventilator FiO2 80 80 09/04/20 09/04/20 09/04/2020 20:00 20:00 20:06 20:21 Temp 98.6 98.4 Pulse 50 50 53 51 Resp 22 B/P (MAP) 113/66 (82) 112/68 (83) Pulse Ox 98 98 98 98 09/04/20 09/04/20 09/04/20 09/04/20 20:36 20:51 21:06 21:21 Temp 98.4 98.2 98.2 98.1 Pulse 51 51 78 62 Resp 22 B/P (MAP) 110/63 (79) 109/66 (80) 112/71 (85) 105/60 (75) Pulse Ox 98 99 99 97 09/04/20 09/04/20 09/04/20 09/04/20 21:36 21:51 22:06 22:12 Temp 98.1 98.1 98.1 Pulse 68 63 61 54 Resp 22 B/P (MAP) 119/63 (81) 117/69 (85) 121/68 (85) Pulse Ox 96 92 92 99 FiO2 80 09/04/20 09/04/20 09/04/20 09/04/20 22:21 22:36 22:51 23:00 Temp 98.1 98.1 98.2 Pulse 62 63 60 60 Resp 23 B/P (MAP) 121/69 (86) 132/73 (92) 117/66 (83) Pulse Ox 92 97 97 100 FiO2 80 09/04/20 09/04/20 09/04/20 09/04/20 23:00 23:06 23:21 23:36 Temp 98.2 98.2 98.4 Pulse 59 57 57 Resp 22 B/P (MAP) 115/68 (84) 111/68 (82) 112/63 (79) Pulse Ox 97 98 98 O2 Delivery Mechanical Ventilator 09/04/20 09/05/20 09/05/20 09/05/20 23:51 00:06 00:21 00:36 Temp 98.4 98.2 98.2 98.2 Pulse 56 56 58 58 Resp 24 B/P (MAP) 107/64 (78) 111/66 (81) 111/62 (78) 108/61 (77) Pulse Ox 97 96 95 93 09/05/20 09/05/20 09/05/20 09/05/20 00:51 01:07 01:21 01:24 Temp 98.2 98.4 Pulse 57 81 99 84 Resp B/P (MAP) 108/68 (81) 106/59 (75) 105/67 (80) Pulse Ox 92 95 82 95 FiO2 80 09/05/20 09/05/20 09/05/20 09/05/20 01:36 01:51 02:06 02:21 Temp 98.6 99.0 99.1 Pulse 83 89 88 84 Resp B/P (MAP) 112/57 (75) 120/62 (81) 114/60 (78) 113/60 (77) Pulse Ox 93 92 92 91 09/05/20 09/05/20 09/05/20 09/05/20 02:36 02:51 03:00 03:00 Temp 99.3 99.5 Pulse 89 90 88 88 Resp B/P (MAP) 117/62 (80) 122/57 (78) Pulse Ox 91 90 92 92 FiO2 80 09/05/20 09/05/20 09/05/20 09/05/20 03:00 03:00 03:00 03:06 Temp 99.7 Pulse 80 88 85 Resp B/P (MAP) 130/71 (90) Pulse Ox 88 94 88 O2 Delivery Mechanical Ventilator FiO2 80 09/05/20 09/05/20 09/05/20 09/05/20 03:21 03:36 03:51 03:51 Temp 99.7 99.7 99.7 99.7 Pulse 87 108 87 87 Resp B/P (MAP) 115/65 (82) 122/68 (86) 115/67 (83) 115/67 (83) Pulse Ox 91 93 93 93 09/05/20 09/05/20 09/05/20 09/05/20 04:06 04:21 04:36 04:51 Temp 99.9 100.0 100.2 98.2 Pulse 88 93 91 91 Resp B/P (MAP) 116/64 (81) 117/62 (80) 116/67 (83) 121/68 (85) Pulse Ox 94 94 93 94 09/05/20 09/05/20 09/05/20 09/05/20 05:06 05:21 05:36 05:51 Temp 100.2 100.0 100.2 100.2 Pulse 90 98 98 89 Resp B/P (MAP) 120/72 (88) 124/73 (90) 127/72 (90) 125/66 (85) Pulse Ox 95 95 95 95 09/05/20 09/05/20 09/05/20 09/05/20 06:06 06:21 06:31 06:36 Temp 100.4 100.4 100.0 Pulse 91 93 97 95 Resp B/P (MAP) 128/68 (88) 123/71 (88) 125/69 (87) Pulse Ox 95 95 94 94 FiO2 80 09/05/20 09/05/20 09/05/20 09/05/20 06:51 07:00 07:06 07:15 Temp 100.4 100.4 100.4 100.4 Pulse 93 93 94 93 Resp B/P (MAP) 116/70 (85) 128/69 (88) Pulse Ox 95 95 95 95 09/05/20 09/05/20 09/05/20 09/05/20 07:21 07:30 07:36 07:45 Temp 100.4 100.4 100.4 100.4 Pulse 91 92 95 95 Resp B/P (MAP) 133/74 (93) 140/76 (97) Pulse Ox 95 95 95 94 09/05/20 09/05/20 09/05/20 09/05/20 07:51 08:00 08:00 08:06 Temp 100.6 100.6 100.6 Pulse 97 100 100 99 Resp B/P (MAP) 135/70 (91) 128/74 (92) Pulse Ox 94 93 94 94 FiO2 80 09/05/20 09/05/20 09/05/20 09/05/20 08:15 08:21 08:30 08:36 Temp 100.8 100.8 100.8 100.8 Pulse 109 125 113 105 Resp 36 57 36 32 B/P (MAP) 161/82 (108) 136/66 (89) Pulse Ox 93 83 91 91 11/09/05/20 09/05/20 09/05/20 08:45 08:51 09:00 09:00 Temp 100.8 100.8 Pulse 107 107 96 107 Resp 34 37 24 37 B/P (MAP) 126/72 (90) Pulse Ox 91 91 94 94 O2 Delivery Mechanical Ventilator FiO2 80 09/05/20 09/05/20 09/05/20 09/05/20 09:00 09:00 09:19 09:45 Pulse 96 96 Resp 24 24 Pulse Ox 94 94 O2 Delivery Mechanical Ventilator FiO2 80 90 09/05/20 09/05/20 09/05/20 09/05/20 10:36 10:45 10:51 11:00 Temp 100.9 100.9 100.9 100.9 Pulse 104 105 104 105 Resp 25 29 31 30 B/P (MAP) 146/74 (98) 141/75 (97) Pulse Ox 92 93 93 94 09/05/20 09/05/20 09/05/20 09/05/20 11:06 11:15 11:21 11:30 Temp 100.9 100.9 100.9 101.1 Pulse 104 107 106 119 Resp 29 30 32 33 B/P (MAP) 139/76 (97) 143/73 (96) Pulse Ox 94 93 93 93 09/05/20 09/05/20 09/05/20 09/05/20 11:36 11:45 11:51 12:00 Temp 101.1 101.1 101.1 Pulse 127 118 116 Resp 38 34 25 B/P (MAP) 129/77 (94) 135/72 (93) Pulse Ox 93 92 93 O2 Delivery Mechanical Ventilator 09/05/20 09/05/20 09/05/20 09/05/20 12:00 12:06 12:14 12:15 Temp 101.1 Pulse 110 107 105 Resp 34 37 24 B/P (MAP) 156/97 (116) Pulse Ox 94 83 94 92 FiO2 90 09/05/20 09/05/20 09/05/20 09/05/20 12:21 12:30 12:30 12:36 Pulse 103 109 99 101 Resp 64 39 32 27 B/P (MAP) 134/78 (96) 131/73 (92) Pulse Ox 84 92 93 FiO2 90 09/05/20 09/05/20 09/05/2020 12:45 12:51 13:00 13:06 Pulse 114 103 100 98 Resp 22 B/P (MAP) 133/75 (94) 131/73 (92) Pulse Ox 94 94 96 97 09/05/20 09/05/20 09/05/20 09/05/20 13:21 13:36 13:51 13:52 Pulse 93 95 95 107 Resp 22 B/P (MAP) 131/78 (95) 134/79 (97) 123/73 (90) Pulse Ox 97 97 98 97 FiO2 90 09/05/20 09/05/20 09/05/20 09/05/20 14:06 14:22 14:36 14:51 Temp 64.0 Pulse 88 76 75 Resp 25 B/P (MAP) 120/78 (92) 108/70 (83) 113/65 (81) 113/70 (84) Pulse Ox 97 85 93 94 09/05/20 09/05/20 09/05/20 09/05/20 15:00 15:06 15:06 15:15 Temp 99.7 99.7 99.7 99.5 Pulse 73 78 78 61 Resp 25 43 43 23 B/P (MAP) 113/74 (87) 113/74 (87) Pulse Ox 94 89 89 96 09/05/20 09/05/20 09/05/20 09/05/20 15:21 15:21 15:30 15:34 Temp 99.5 99.5 99.3 Pulse 59 59 60 67 Resp 22 23 B/P (MAP) 114/65 (81) 114/65 (81) Pulse Ox 97 97 98 94 09/05/20 09/05/20 09/05/20 09/05/20 15:35 15:36 15:36 15:45 Temp 99.3 99.3 Pulse 67 67 59 59 Resp 22 22 B/P (MAP) 114/70 (85) Pulse Ox 94 94 98 98 FiO2 90 09/05/20 09/05/20 09/05/20 09/05/20 15:51 16:00 16:00 16:06 Temp 99.3 99.3 99.3 Pulse 59 60 62 Resp 22 B/P (MAP) 115/70 (85) 120/75 (90) Pulse Ox 99 99 99 O2 Delivery Mechanical Ventilator 09/05/20 09/05/20 09/05/20 09/05/20 16:17 18:09 19:00 19:06 Temp 99.7 99.7 Pulse 99 67 64 65 Resp 32 22 B/P (MAP) 122/71 (88) Pulse Ox 92 89 93 93 FiO2 90 90 09/05/20 09/05/20 09/05/20 09/05/20 19:15 19:21 19:30 19:36 Temp 99.7 99.7 99.7 99.7 Pulse 66 66 65 64 Resp 22 27 B/P (MAP) 119/71 (87) 120/63 (82) Pulse Ox 92 91 91 89 09/05/20 09/05/20 09/05/20 09/05/20 19:45 19:51 20:00 20:00 Temp 99.5 99.5 99.5 Pulse 63 62 60 Resp 25 B/P (MAP) 119/74 (89) Pulse Ox 87 88 88 O2 Delivery Mechanical Ventilator 09/05/20 09/05/20 09/05/20 09/05/20 20:00 20:06 20:15 20:21 Temp 99.5 99.5 99.5 Pulse 59 57 57 59 Resp 22 B/P (MAP) 124/70 (88) 119/67 (84) Pulse Ox 91 89 89 90 FiO2 90 09/05/20 09/05/20 09/05/20 09/05/20 20:21 20:36 20:51 21:00 Temp 99.5 99.5 99.5 Pulse 59 59 61 63 Resp 22 22 B/P (MAP) 119/67 (84) 118/69 (85) 115/71 (86) Pulse Ox 90 92 92 92 FiO2 90 09/05/20 09/05/20 09/05/20 09/05/20 21:00 21:00 21:00 21:06 Temp 99.5 Pulse 63 63 66 61 Resp 22 B/P (MAP) 117/70 (86) Pulse Ox 92 92 90 92 O2 Delivery Mechanical Ventilator FiO2 90 09/05/20 09/05/20 09/05/20 09/05/20 21:21 21:36 21:51 22:06 Temp 99.5 99.5 99.3 99.3 Pulse 59 69 66 70 Resp 22 B/P (MAP) 115/64 (81) 108/58 (75) 112/59 (76) 107/60 (76) Pulse Ox 92 90 91 89 09/05/20 09/05/20 09/05/20 09/05/20 22:21 22:36 22:51 23:06 Temp 99.3 99.1 99.1 99.1 Pulse 67 69 66 66 Resp 23 B/P (MAP) 109/57 (74) 113/67 (82) 109/62 (78) 105/60 (75) Pulse Ox 88 86 91 91 09/05/20 09/05/20 09/05/20 09/06/20 23:21 23:36 23:51 00:00 Temp 99.1 99.1 99.1 Pulse 63 60 60 59 Resp B/P (MAP) 105/63 (77) 107/64 (78) 110/63 (79) Pulse Ox 92 92 92 91 FiO2 90 09/06/20 09/06/20 09/06/20 09/06/20 00:00 00:06 00:21 00:21 Temp 99.1 99.1 99.1 Pulse 58 59 59 Resp 23 B/P (MAP) 113/70 (84) 114/69 (84) 114/69 (84) Pulse Ox 92 90 90 O2 Delivery Mechanical Ventilator 09/06/20 09/06/20 09/06/20 09/06/20 00:36 00:51 01:06 01:20 Temp 99.1 99.1 99.1 Pulse 60 58 59 58 Resp 22 B/P (MAP) 115/67 (83) 114/64 (81) 111/65 (80) Pulse Ox 89 90 91 91 FiO2 90 09/06/20 09/06/20 09/06/20 09/06/20 01:21 01:36 01:51 02:06 Temp 99.3 99.3 99.3 99.3 Pulse 62 59 59 59 Resp 22 B/P (MAP) 107/61 (76) 108/57 (74) 108/65 (79) 105/61 (76) Pulse Ox 90 91 91 91 09/06/20 09/06/20 09/06/20 09/06/20 02:21 02:36 02:51 03:00 Temp 99.3 99.3 99.3 Pulse 60 59 59 56 Resp 22 22 10 22 B/P (MAP) 109/59 (76) Pulse Ox 90 89 89 90 09/06/20 09/06/20 09/06/20 09/06/20 03:00 03:06 04:00 04:00 Temp 99.3 Pulse 57 68 60 Resp 22 23 22 Pulse Ox 90 78 90 O2 Delivery Mechanical Ventilator FiO2 90 09/06/20 09/06/20 09/06/20 09/06/20 04:48 07:00 07:30 08:00 Temp 98.4 98.6 98.8 Pulse 56 53 56 72 Resp 22 22 B/P (MAP) 116/66 (83) 115/65 (82) 101/58 (72) Pulse Ox 90 91 91 74 FiO2 90 09/06/20 09/06/20 09/06/20 09/06/20 08:00 08:00 08:14 08:15 Temp 99.0 99.0 Pulse 60 95 84 Resp 28 18 B/P (MAP) 126/70 (88) Pulse Ox 90 79 85 O2 Delivery Mechanical Ventilator FiO2 100 09/06/20 09/06/20 09/06/20 09/06/20 08:30 09:00 09:15 09:21 Temp 99.3 100.2 100.4 Pulse 86 91 55 Resp 22 32 22 B/P (MAP) 134/62 (86) 135/62 (86) 144/68 (93) Pulse Ox 83 84 73 91 09/06/20 09/06/20 09/06/20 09/06/20 09:25 09:31 09:32 09:47 Pulse 55 55 55 55 Resp 22 22 22 22 Pulse Ox 91 91 91 91 O2 Delivery Mechanical Ventilator FiO2 90 100 09/06/20 09/06/20 09/06/20 09/06/20 10:00 10:01 10:14 10:15 Pulse 84 78 78 78 Resp 22 21 22 22 B/P (MAP) 93/51 (65) 88/49 (62) 103/54 (70) Pulse Ox 88 88 91 91 09/06/20 09/06/20 09/06/2026/20 10:29 10:30 11:00 11:15 Pulse 80 80 83 80 Resp 23 22 22 22 B/P (MAP) 112/59 (76) 126/68 (87) Pulse Ox 93 93 95 95 09/06/20 09/06/20 09/06/20 09/06/20 11:21 11:30 12:00 12:00 Pulse 87 84 60 Resp 22 22 22 B/P (MAP) 126/67 (86) Pulse Ox 95 96 90 O2 Delivery Mechanical Ventilator FiO2 100 100 09/06/20 09/06/20 09/06/20 09/06/20 12:00 12:30 12:45 12:59 Temp 101.3 101.1 Pulse 87 73 77 77 Resp 22 23 22 22 B/P (MAP) 102/54 (70) 94/53 (67) 97/57 (70) Pulse Ox 97 96 96 96 09/06/20 09/06/20 09/06/20 09/06/20 13:00 13:14 13:15 13:29 Temp 101.1 100.9 100.9 100.8 Pulse 76 70 70 69 Resp 22 22 22 23 B/P (MAP) 99/59 (72) 99/58 (72) Pulse Ox 97 97 98 98 09/06/20 09/06/20 09/06/20 09/06/20 13:30 14:00 15:41 15:42 Temp 100.8 100.6 Pulse 67 64 61 61 Resp 22 22 22 22 B/P (MAP) 125/66 (85) Pulse Ox 99 99 99 99 FiO2 100 09/06/20 09/06/20 09/06/20 09/06/20 15:44 15:44 16:00 19:00 Temp 99.5 Pulse 61 61 60 53 Resp 22 22 22 22 Pulse Ox 99 99 90 100 O2 Delivery Mechanical Ventilator FiO2 100 100 09/06/20 09/06/20 09/06/20 09/06/20 19:14 19:15 19:30 19:30 Temp 99.3 99.3 Pulse 61 63 69 67 Resp 23 25 22 22 B/P (MAP) 111/59 (76) Pulse Ox 98 100 99 97 FiO2 100 09/06/20 09/06/20 09/06/20 09/06/20 19:30 19:30 19:44 19:45 Temp 99.3 99.5 99.5 Pulse 69 67 67 69 Resp B/P (MAP) 102/47 (65) 104/59 (74) Pulse Ox 99 97 98 99 09/06/20 09/06/20 09/06/20 09/06/20 19:59 20:00 20:00 20:00 Temp 99.7 99.7 Pulse 86 60 80 Resp B/P (MAP) 107/62 (77) Pulse Ox 88 90 95 O2 Delivery Mechanical Ventilator FiO2 100 09/06/20 09/06/20 09/06/20 09/06/20 20:14 20:15 21:59 22:00 Temp 99.7 99.7 99.5 99.5 Pulse 70 71 56 57 Resp B/P (MAP) 114/61 (78) 99/55 (70) Pulse Ox 100 100 100 100 09/06/20 09/06/20 09/06/20 09/06/20 22:14 22:15 22:29 22:30 Temp 99.3 99.3 99.3 99.3 Pulse 56 56 54 53 Resp 22 B/P (MAP) 104/51 (68) 100/57 (71) Pulse Ox 100 100 100 100 09/06/20 09/06/20 09/06/20 09/06/20 22:44 22:45 22:59 23:00 Temp 99.3 99.3 99.3 99.3 Pulse 54 52 52 52 Resp B/P (MAP) 101/56 (71) 104/58 (73) Pulse Ox 100 100 100 100 09/06/20 09/06/20 09/06/20 09/06/20 23:01 23:14 23:15 23:29 Temp 99.3 99.3 99.3 Pulse 55 52 52 54 Resp 18 23 B/P (MAP) 103/56 (72) 117/67 (84) Pulse Ox 100 100 100 100 FiO2 100 09/06/20 09/06/20 09/06/20 09/07/20 23:30 23:45 23:59 00:00 Temp 99.3 99.3 99.3 Pulse 54 61 66 Resp B/P (MAP) 101/54 (70) 110/55 (73) Pulse Ox 100 100 100 O2 Delivery Mechanical Ventilator 09/07/20 09/07/20 09/07/20 09/07/20 00:00 00:00 00:14 00:15 Temp 99.3 99.5 99.5 Pulse 60 65 59 61 Resp B/P (MAP) 104/55 (71) Pulse Ox 90 100 100 100 FiO2 100 09/07/20 09/07/20 09/07/20 09/07/20 01:45 01:58 02:00 02:09 Temp 99.5 99.5 Pulse 79 79 56 Resp B/P (MAP) 139/73 (95) Pulse Ox 100 90 100 FiO2 100 09/07/20 09/07/20 09/07/20 09/07/20 02:13 02:15 02:28 02:30 Temp 99.5 99.5 99.5 99.5 Pulse 83 82 73 70 Resp B/P (MAP) 131/64 (86) 123/64 (83) Pulse Ox 92 92 94 94 09/07/20 09/07/20 09/07/20 09/07/20 02:43 02:45 02:53 02:58 Temp 99.5 99.5 99.7 Pulse 73 70 69 Resp B/P (MAP) 114/68 (83) 116/65 (82) Pulse Ox 95 95 93 94 09/07/20 09/07/20 09/07/20 09/07/20 03:00 03:14 03:15 03:29 Temp 99.7 99.7 99.7 99.7 Pulse 70 64 66 75 Resp Pulse Ox 94 94 94 92 09/07/20 09/07/20 09/07/20 09/07/20 03:30 03:43 03:45 03:58 Temp 99.7 99.7 99.7 99.7 Pulse 74 74 74 83 Resp 22 B/P (MAP) 114/63 (80) 100/61 (74) Pulse Ox 93 93 92 96 09/07/20 09/07/20 09/07/20 09/07/20 04:00 04:00 04:00 05:04 Temp 99.7 Pulse 76 60 71 Resp 22 22 22 Pulse Ox 96 90 92 O2 Delivery Mechanical Ventilator FiO2 100 09/07/20 09/07/20 09/07/20 09/07/20 05:04 05:04 07:00 07:13 Temp 100.0 100.0 Pulse 73 71 63 62 Resp 22 22 22 22 B/P (MAP) 100/59 (73) Pulse Ox 97 92 98 98 FiO2 100 09/07/20 09/07/20 09/07/20 09/07/20 07:15 07:28 07:28 07:43 Temp 100.0 100.0 100.0 100.0 Pulse 63 61 61 61 Resp 22 23 B/P (MAP) 107/67 (80) 107/67 (80) 101/62 (75) Pulse Ox 98 97 97 99 09/07/20 09/07/20 09/07/20 09/07/20 07:58 08:00 08:13 08:28 Temp 100.2 100.2 100.2 Pulse 67 24 89 102 Resp 29 B/P (MAP) 102/57 (72) 109/63 (78) 132/69 (90) Pulse Ox 98 92 97 79 FiO2 100 09/07/20 09/07/20 09/07/20 09/07/20 08:43 08:45 08:45 08:45 Pulse 91 86 86 86 Resp 29 29 B/P (MAP) 117/63 (81) Pulse Ox 91 100 97 97 FiO2 100 09/07/20 09/07/20 09/07/20 09/07/20 08:45 08:58 09:13 09:28 Pulse 86 87 85 85 Resp 32 22 22 B/P (MAP) 108/64 (79) 110/58 (75) 97/54 (68) Pulse Ox 97 94 97 97 O2 Delivery Mechanical Ventilator FiO2 100 09/07/20 09/07/20 09/07/20 09/07/20 09:30 09:43 09:44 09:45 Pulse 81 85 86 Resp 22 22 22 B/P (MAP) 105/54 (71) Pulse Ox 97 97 97 O2 Delivery Mechanical Ventilator 09/07/20 09/07/20 09/07/20 09/07/20 09:58 10:00 10:13 10:15 Pulse 86 89 91 92 Resp 22 22 24 24 B/P (MAP) 101/49 (66) 115/53 (73) Pulse Ox 98 97 98 98 09/07/20 09/07/20 09/07/20 09/07/20 10:29 10:30 10:35 10:43 Pulse 86 85 83 79 Resp B/P (MAP) 99/45 (63) 92/40 (57) Pulse Ox 93 93 93 92 09/07/20 09/07/20 09/07/20 09/07/20 10:45 10:59 11:00 11:13 Temp 100.4 100.4 Pulse 79 71 77 Resp B/P (MAP) 121/53 (75) 108/60 (76) Pulse Ox 93 90 90 92 09/07/20 09/07/20 09/07/20 09/07/20 11:15 11:28 11:43 11:45 Temp 100.4 100.4 100.4 100.4 Pulse 78 76 65 66 Resp B/P (MAP) 107/56 (73) 104/59 (74) Pulse Ox 92 92 94 94 09/07/20 09/07/20 09/07/20 09/07/20 11:58 12:00 12:10 12:12 Temp 100.4 100.4 Pulse 62 61 61 Resp B/P (MAP) 105/59 (74) Pulse Ox 95 96 96 O2 Delivery Mechanical Ventilator FiO2 100 09/07/20 09/07/20 09/07/20 09/07/20 12:13 12:15 12:28 12:30 Temp 100.4 100.4 100.2 100.2 Pulse 60 59 61 61 Resp B/P (MAP) 104/62 (76) 107/62 (77) Pulse Ox 97 97 97 97 09/07/20 09/07/20 09/07/20 09/07/20 12:43 12:45 12:58 13:00 Temp 100.2 100.2 100.2 100.2 Pulse 58 58 56 56 Resp B/P (MAP) 108/59 (75) 107/64 (78) Pulse Ox 98 98 99 99 09/07/20 09/07/20 09/07/20 09/07/20 13:13 13:15 13:24 13:28 Temp 100.0 100.0 100.0 Pulse 57 56 66 58 Resp 22 B/P (MAP) 103/62 (76) 104/63 (77) Pulse Ox 98 98 93 97 FiO2 100 09/07/20 09/07/20 09/07/20 09/07/20 13:30 13:43 13:45 13:58 Temp 100.0 100.0 100.0 99.9 Pulse 57 56 58 56 Resp 22 B/P (MAP) 107/62 (77) 107/62 (77) Pulse Ox 98 98 98 98 09/07/20 09/07/20 09/07/20 09/07/20 14:00 14:13 14:15 14:28 Temp 99.9 99.9 99.9 99.9 Pulse 56 55 55 55 Resp B/P (MAP) 104/64 (77) 104/61 (75) Pulse Ox 98 98 97 97 09/07/20 09/07/20 09/07/20 09/07/20 14:30 14:45 14:59 15:00 Temp 99.9 99.7 99.7 99.7 Pulse 55 55 54 55 Resp B/P (MAP) 102/64 (77) Pulse Ox 97 97 97 97 09/07/20 09/07/20 09/07/20 09/07/20 15:15 15:29 15:30 15:45 Temp 99.7 99.7 99.7 99.5 Pulse 55 54 54 54 Resp B/P (MAP) 108/64 (79) Pulse Ox 97 98 98 97 09/07/20 09/07/20 09/07/20 09/07/20 15:59 16:00 16:15 16:19 Temp 99.5 99.5 99.5 Pulse 53 55 53 55 Resp 23 B/P (MAP) 104/62 (76) Pulse Ox 97 97 97 97 09/07/20 09/07/20 09/07/20 09/07/20 16:19 16:19 16:29 16:30 Temp 99.3 99.3 Pulse 55 55 52 53 Resp 22 B/P (MAP) 100/58 (72) Pulse Ox 97 97 96 97 FiO2 100 09/07/20 09/07/20 09/07/20 09/07/20 16:30 16:40 16:45 16:59 Temp 99.3 99.3 99.3 Pulse 53 55 55 52 Resp B/P (MAP) 106/61 (76) Pulse Ox 97 97 97 95 FiO2 100 09/07/20 09/07/20 09/07/20 09/07/20 17:00 17:15 17:29 17:30 Temp 99.3 99.1 99.1 99.1 Pulse 53 71 57 57 Resp B/P (MAP) 108/58 (75) Pulse Ox 94 85 96 97 09/07/20 09/07/20 09/07/20 09/07/20 17:37 17:45 17:59 18:00 Temp 99.1 99.1 99.1 Pulse 57 54 54 Resp B/P (MAP) 103/60 (74) Pulse Ox 98 97 98 O2 Delivery Mechanical Ventilator 09/07/20 09/07/20 09/07/20 09/07/20 19:00 19:15 19:29 19:30 Temp 99.0 99.0 99.0 99.0 Pulse 51 52 55 53 Resp B/P (MAP) 119/68 (85) Pulse Ox 98 98 96 95 09/07/20 09/07/20 09/07/20 09/07/20 19:45 20:00 20:00 20:00 Temp 99.0 99.0 Pulse 60 53 60 Resp Pulse Ox 93 95 90 O2 Delivery Mechanical Ventilator FiO2 100 09/07/20 09/07/20 09/07/20 09/07/20 20:15 20:15 20:23 20:29 Temp 99.0 99.0 99.0 Pulse 53 52 54 57 Resp B/P (MAP) 110/62 (78) 108/58 (75) Pulse Ox 95 95 98 99 O2 Delivery Mechanical Ventilator FiO2 100 09/07/20 09/07/20 09/07/20 09/07/20 20:30 20:59 21:02 21:02 Temp 99.0 Pulse 58 52 56 52 Resp Pulse Ox 99 95 95 95 FiO2 100 11/2709/07/20 09/07/20 09/07/20 22:30 22:45 22:59 23:00 Temp 99.0 99.1 99.1 99.1 Pulse 56 57 57 55 Resp 23 B/P (MAP) 113/60 (77) Pulse Ox 96 97 97 97 09/07/20 09/07/20 09/07/20 09/07/20 23:15 23:29 23:30 23:45 Temp 99.1 99.1 99.1 99.3 Pulse 58 57 57 58 Resp 23 B/P (MAP) 119/65 (83) Pulse Ox 97 96 96 97 09/07/20 09/07/20 09/08/20 09/08/20 23:58 23:59 00:00 00:00 Temp 99.3 99.3 Pulse 61 60 59 Resp B/P (MAP) 113/61 (78) Pulse Ox 96 97 97 O2 Delivery Mechanical Ventilator FiO2 100 09/08/20 09/08/20 09/08/20 09/08/20 00:00 00:15 00:29 00:30 Temp 99.3 99.3 99.3 Pulse 60 62 68 63 Resp 22 B/P (MAP) 128/65 (86) Pulse Ox 90 97 97 96 FiO2 100 09/08/20 09/08/20 09/08/20 09/08/20 00:45 00:59 01:00 01:15 Temp 99.3 99.5 99.5 99.7 Pulse 68 75 74 70 Resp B/P (MAP) 133/70 (91) Pulse Ox 97 99 99 97 09/08/20 09/08/20 09/08/20 09/08/20 01:29 01:30 02:00 02:15 Temp 99.7 99.7 99.9 99.9 Pulse 68 70 65 60 Resp 17 B/P (MAP) 117/62 (80) Pulse Ox 95 97 94 95 09/08/20 09/08/20 09/08/20 09/08/20 02:30 02:45 03:00 03:13 Temp 99.9 99.7 99.0 99.9 Pulse 63 58 Resp 56 23 B/P (MAP) 147/68 (94) Pulse Ox 94 96 97 93 09/08/20 09/08/20 09/08/20 09/08/20 03:15 03:20 03:30 03:43 Temp 99.9 99.9 99.7 Pulse 82 61 83 74 Resp B/P (MAP) 142/78 (99) Pulse Ox 98 96 93 92 09/08/20 09/08/20 09/08/20 09/08/20 03:45 03:45 04:00 04:00 Temp 99.7 99.7 Pulse 63 78 66 60 Resp Pulse Ox 97 92 97 90 FiO2 100 09/08/20 09/08/20 09/08/20 09/08/20 04:00 04:13 04:15 04:30 Temp 99.9 99.9 99.7 Pulse 56 57 54 Resp B/P (MAP) 131/75 (93) Pulse Ox 97 98 99 O2 Delivery Mechanical Ventilator 09/08/20 09/08/20 09/08/20 09/08/20 04:42 04:45 04:57 05:00 Temp 99.9 99.9 99.9 Pulse 53 52 62 53 Resp B/P (MAP) 124/75 (91) Pulse Ox 99 99 97 99 FiO2 100 09/08/20 09/08/20 09/08/20 09/08/20 05:12 05:15 07:00 07:12 Temp 99.9 99.9 99.9 99.9 Pulse 54 54 58 59 Resp B/P (MAP) 119/75 (90) 126/73 (90) Pulse Ox 100 100 98 98 09/08/20 09/08/20 09/08/20 09/08/20 07:30 07:30 07:42 07:45 Temp 100.0 100.0 100.0 Pulse 60 58 63 60 Resp B/P (MAP) 125/69 (87) Pulse Ox 99 98 99 99 FiO2 100 09/08/20 09/08/20 09/08/20 09/08/20 08:00 08:00 08:12 08:15 Temp 100.0 100.0 100.0 Pulse 65 63 67 Resp B/P (MAP) 131/71 (91) Pulse Ox 98 98 99 O2 Delivery Mechanical Ventilator 09/08/20 09/08/20 09/08/20 09/08/20 08:30 08:42 08:45 08:46 Temp 100.0 100.2 100.2 Pulse 86 68 68 59 Resp 30 29 23 B/P (MAP) 139/86 (103) Pulse Ox 95 95 95 98 09/08/20 09/08/20 09/08/20 09/08/20 08:47 08:48 08:49 09:00 Temp 100.2 Pulse 59 59 59 70 Resp 28 Pulse Ox 98 98 98 93 O2 Delivery Mechanical Ventilator FiO2 100 100 09/08/20 09/08/20 09/08/20 09/08/20 09:12 09:15 09:30 09:42 Temp 100.2 100.2 100.4 100.4 Pulse 65 74 81 86 Resp 32 31 34 B/P (MAP) 136/74 (94) 137/66 (89) Pulse Ox 93 94 94 92 09/08/20 09/08/20 09/08/20 09/08/20 09:45 10:00 10:12 10:15 Temp 100.4 100.6 100.6 100.6 Pulse 90 76 77 77 Resp 34 36 33 38 B/P (MAP) 124/60 (81) Pulse Ox 92 92 93 92 09/08/20 09/08/20 09/08/20 09/08/20 10:30 10:42 10:42 10:45 Temp 100.6 100.6 100.6 100.6 Pulse 81 73 73 66 Resp 34 22 22 22 B/P (MAP) 123/67 (85) 123/67 (85) Pulse Ox 93 96 96 96 09/08/20 09/08/20 09/08/20 09/08/20 10:57 11:12 11:32 11:42 Temp 100.4 100.4 100.4 100.4 Pulse 60 61 73 68 Resp 22 22 22 23 B/P (MAP) 120/65 (83) 124/63 (83) Pulse Ox 97 98 89 89 09/08/20 09/08/20 09/08/20 09/08/20 11:43 11:44 11:57 12:01 Temp 100.4 100.4 Pulse 70 65 59 Resp 25 22 22 B/P (MAP) 124/64 (84) 124/64 Pulse Ox 90 89 90 FiO2 100 09/08/20 09/08/20 09/08/20 09/08/20 12:01 12:09 12:12 12:42 Temp 100.4 100.4 Pulse 75 52 59 Resp 22 23 B/P (MAP) 138/75 (96) Pulse Ox 93 91 90 O2 Delivery Mechanical Ventilator FiO2 100 09/08/20 09/08/20 09/08/20 09/08/20 12:43 13:12 13:42 14:12 Temp 100.4 100.4 100.4 100.2 Pulse 58 57 58 52 Resp 30 29 B/P (MAP) 120/66 (84) 113/68 (83) 126/72 (90) 135/75 (95) Pulse Ox 93 93 93 95 09/08/20 09/08/20 09/08/20 09/08/20 14:42 14:43 14:43 15:13 Temp 100.0 100.0 100.0 99.9 Pulse 58 57 57 55 Resp 22 B/P (MAP) 129/62 (84) 129/62 (84) 118/67 (84) Pulse Ox 97 97 93 09/08/20 09/08/20 09/08/20 09/08/20 15:14 15:16 15:16 15:43 Temp 99.9 Pulse 56 56 56 53 Resp 22 B/P (MAP) 122/65 (84) Pulse Ox 93 93 93 91 FiO2 100 09/08/20 09/08/20 09/08/20 09/08/20 16:05 16:12 16:25 16:43 Temp 99.7 99.7 Pulse 51 50 51 Resp 22 B/P (MAP) 129/72 (91) 129/65 (86) Pulse Ox 93 92 94 O2 Delivery Mechanical Ventilator FiO2 100 09/08/20 09/08/20 09/08/20 09/08/20 17:13 17:43 17:43 17:58 Temp 99.5 99.3 99.3 99.3 Pulse 50 51 51 52 Resp 22 B/P (MAP) 128/67 (87) 117/65 (82) 117/65 (82) Pulse Ox 93 93 93 92 1109/08/20 09/08/20 09/08/20 18:12 18:13 18:28 18:42 Temp 99.1 99.1 99.1 99.0 Pulse 51 51 51 51 Resp 22 B/P (MAP) 115/63 (80) 113/64 (80) Pulse Ox 91 91 92 90 09/08/20 09/08/20 09/08/20 09/08/20 18:43 20:00 20:00 20:57 Temp 99.0 Pulse 51 60 48 Resp 22 22 22 Pulse Ox 91 90 99 O2 Delivery Mechanical Ventilator FiO2 100 100 09/08/20 09/08/20 09/08/20 09/08/20 20:58 20:59 20:59 22:15 Temp 98.2 Pulse 48 50 48 50 Resp 23 Pulse Ox 99 99 99 99 O2 Delivery Mechanical Ventilator FiO2 100 09/08/20 09/08/20 09/08/20 09/08/20 22:30 22:42 22:45 23:00 Temp 98.2 98.2 98.2 98.4 Pulse 58 59 58 56 Resp 23 B/P (MAP) 113/55 (74) Pulse Ox 99 100 99 98 09/08/20 09/08/20 09/08/20 09/08/20 23:12 23:15 23:30 23:38 Temp 98.4 98.6 98.6 Pulse 60 64 71 68 Resp B/P (MAP) 118/56 (76) Pulse Ox 98 98 99 100 FiO2 100 09/08/20 09/08/20 09/09/20 09/09/20 23:42 23:45 00:00 00:00 Temp 98.8 98.8 99.0 Pulse 77 71 75 Resp 22 B/P (MAP) 126/64 (84) Pulse Ox 98 98 98 O2 Delivery Mechanical Ventilator 09/09/20 09/09/20 09/09/20 09/09/20 00:00 00:13 00:15 00:30 Temp 99.0 99.0 99.1 Pulse 60 76 73 71 Resp 22 B/P (MAP) 128/62 (84) Pulse Ox 90 99 98 98 FiO2 100 09/09/20 09/09/20 09/09/20 09/09/20 00:43 00:45 01:00 01:12 Temp 99.1 99.1 99.3 99.3 Pulse 73 69 70 70 Resp 22 B/P (MAP) 122/52 (75) 120/57 (78) Pulse Ox 99 99 98 98 09/09/20 09/09/20 09/09/20 09/09/20 01:15 01:43 01:45 02:00 Temp 99.3 99.5 99.5 99.7 Pulse 69 66 66 59 Resp 24 21 B/P (MAP) 116/56 (76) Pulse Ox 97 97 96 97 09/09/20 09/09/20 09/09/20 09/09/20 02:12 02:15 02:30 02:42 Temp 99.7 99.7 99.9 99.9 Pulse 63 65 71 62 Resp 38 22 B/P (MAP) 116/56 (76) 107/50 (69) Pulse Ox 98 98 94 99 09/09/20 09/09/20 09/09/20 09/09/20 02:45 03:00 03:15 03:30 Temp 99.9 100.0 Pulse 62 57 Resp 23 Pulse Ox 98 99 99 94 09/09/20 09/09/20 09/09/20 09/09/20 03:37 03:45 04:00 04:00 Temp 100.0 100.0 99.9 Pulse 74 75 75 60 Resp 22 B/P (MAP) 158/70 (99) Pulse Ox 89 94 95 90 FiO2 100 09/09/20 09/09/20 09/09/20 09/09/20 04:00 04:00 04:00 04:07 Temp 99.9 Pulse 67 68 67 76 Resp 22 B/P (MAP) 143/72 (95) Pulse Ox 97 99 97 95 FiO2 100 09/09/20 09/09/20 09/09/20 09/09/20 04:15 04:30 04:37 04:45 Temp 99.9 99.9 99.9 99.9 Pulse 70 74 74 72 Resp 22 B/P (MAP) 130/64 (86) Pulse Ox 95 95 96 95 09/09/20 09/09/20 09/09/20 09/09/20 05:00 05:07 05:15 05:30 Temp 99.9 99.9 99.9 99.9 Pulse 63 70 76 92 Resp 24 26 B/P (MAP) 128/72 (90) Pulse Ox 96 94 96 95 09/09/20 09/09/20 09/09/20 09/09/20 05:35 05:37 05:45 06:00 Temp 99.9 99.9 100.0 Pulse 92 91 86 Resp 30 B/P (MAP) 151/75 (100) Pulse Ox 99 95 93 92 09/09/20 09/09/20 09/09/20 09/09/20 06:07 06:15 06:30 08:00 Temp 100.0 100.2 100.4 Pulse 91 96 93 60 Resp 22 B/P (MAP) 148/77 (100) Pulse Ox 91 94 93 90 FiO2 100 09/09/20 09/09/20 09/09/20 09/09/20 08:38 08:50 08:50 08:50 Pulse 60 94 94 Resp 33 33 33 Pulse Ox 93 93 93 O2 Delivery Mechanical Ventilator FiO2 100 100 09/09/20 08:50 Pulse 60 Resp 33 Pulse Ox 93 Intake and Output 09/09/20 06:00 Intake Total 640 ml Output Total 2550 ml Balance -1910 ml LABS LAB RESULTS labs and radiolgy reviewed VTE VTE Risk Total Score: 2 VTE Risk Score VTE Risk: Score 0-1 = Low Risk (Aggressive mobilization; early ambulation; no VTE prophylaxis required) Score 2: Moderate Risk (Intermittent/Pneumatic Compression Device OR Lovenox/Heparin/Coumadin) Score 3-4: High Risk (Intermittent/Pneumatic Compression Device AND Lovenox/Heparin/Coumadin) Score > or =5: Highest Risk (Intermittent/Pneumatic Compression Device AND Lovenox/Heparin/Coumadin) Antico:Hep/LMWH/Coum/Xarelto: Yes VTE VTE Present on Admission: No Currently receiving anticoagul: Yes VTE Risk Total Score: 2 Antico:Hep/LMWH/Coum/Xarelto: Yes Assessment/Plan Assessment/Plan Assessment/Plan Anticoagulation Stress ulcer prophylaxis Vent support, proning, Follow ABG Check urine culture empiric zosyn lovenox bid lasix X 1 today tube feeds at goal CC time > 60 min spent reviewing patient w/ RN and hospitalist. Video assessment performed with HIPAA compliant technology. 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 Video assessment performed with HIPAA compliant technology. Duration Duration or Time Spent with Pa: 60 mins ANGELIQUE COOK MD Sep 09, 2020 12:34
[2020-09-09] MEDS: VANCOMYCIN HCL 1 GM in NS 250ML 250 ML IV SCH ×2 (13:00→21:00)
[2020-09-09] MEDS: DUO 0.5-3(2.5) MG/3 ML IH SCH ×2 (15:00→22:55)
[2020-09-09] MEDS: SUBLIMAZE 2,000 MCG in NS 250ML 160 ML IV SCH (16:12)
[2020-09-09 17:18] LABS: ABG PCO2 34.6 mmHg (35.0-45.0); ABG PH 7.371 (7.350-7.450); BE(B) -4.8 mmol/L (-2.0-2.0); HCO3act 19.6 mmol/L (22.0-26.0); pO2 64.4 mmHg (80.0-100.0)
--- NOTE | 2020-09-09 21:15 | DIET.OP ---
Nutrition Asmt/Malnutrit 2-17 Actual Date of Review: Sep 09, 2020 Nutritional Screening: vent/TF Diagnosis: COVID 19, resp distress Pertinent Medical Hx/Surgical: HTN Subjective Information: Telehealth consult - pt intubated and sedated. Propofol at 40 mcg/kg/min providing 588 kcal. Pt being proned 16 hrs a day and TF held while in prone. Severe hypoxemia this am and worsening overall per MD note. Per RN pt was only able to tolerate one can of twocal formula last time he was in supine due to respiratory symptoms worsening. She will try again tonight. Current Diet Order/Nutrition S: EN Pertinent Meds Current Medications Medications (Trade) Dose Ordered Sig/Estuardo PRN Reason Start Time Stop Time Status Last Admin Dexmedetomidine HCl 1600 mcg/ Sodium Chloride 400 ml @ 0 mls/hr IV 09/07/20 21:00 10/07/20 20:59 Enoxaparin Sodium (Lovenox) 90 mg BID 09/08/20 21:00 10/08/20 20:59 09/10/20 08:44 Fentanyl Citrate 2000 mcg/Sodium Chloride 200 ml @ 0 mls/hr IV 09/07/20 21:00 10/07/20 20:59 09/10/20 09:33 Potassium Chloride/Dextrose 1,000 ml @ 100 mls/hr Q10H 09/10/20 12:30 10/10/20 12:29 09/10/20 13:08 Vancomycin HCl 1 gm/Sodium Chloride 250 ml @ 175 mls/hr Q8H 09/09/20 13:00 10/09/20 12:59 09/10/20 13:00 Pertinent Labs Laboratory Tests Test 09/09/20 05:44 09/09/20 08:00 09/09/20 09:35 09/10/20 04:18 White Blood Count 18.0 10^3/uL 17.5 10^3/uL Red Blood Count 4.63 10^6/uL 4.34 10^6/uL Hemoglobin 14.8 g/dL 13.8 g/dL Hematocrit 42.6 % 39.8 % Mean Corpuscular Volume 92.0 fL 91.7 fL Mean Corpuscular Hemoglobin 32.0 pg 31.8 pg Mean Corpuscular Hemoglobin Concent 34.7 g/dL 34.7 g/dL Red Cell Distribution Width 12.5 % 12.2 % Platelet Count 154 10^3/uL 129 10^3/uL Mean Platelet Volume 10.1 fL 9.4 fL Sodium Level 139 mmol/L 140 mmol/L Potassium Level 3.5 mmol/L 3.9 mmol/L Chloride Level 103.0 mmol/L 104.0 mmol/L Carbon Dioxide Level 28.4 mmol/L 30.8 mmol/L Anion Gap 11.1 9.1 Blood Urea Nitrogen 21 mg/dL 19 mg/dL Creatinine 0.52 mg/dL 0.55 mg/dL Estimated GFR () 199.6 187.1 Est GFR (CKD-EPI)(Non-Afr [place]) 165.0 154.7 BUN/Creatinine Ratio 40.0 34.0 Glucose Level 117 mg/dL 138 mg/dL Calcium Level 8.2 mg/dL 8.0 mg/dL Total Bilirubin 0.9 mg/dL 0.7 mg/dL Aspartate Amino Transf (AST/SGOT) 47 U/L 55 U/L Alanine Aminotransferase (ALT/SGPT) 51 U/L 63 U/L Alkaline Phosphatase 70 U/L 81 U/L Total Protein 6.0 g/dL 5.5 g/dL Albumin 1.7 g/dL 1.5 g/dL Globulin 4.3 4.0 Albumin/Globulin Ratio 0.395 0.375 Blood Gas Sample Site RT BRACIAL ARTERY Blood Gas pH 7.371 Blood Gas PCO2 34.6 mmHg Blood Gas PO2 64.4 mmHg Blood Gas HCO3 19.6 mmol/L Blood Gas Base Excess -4.8 mmol/L Vince Test POSITIVE Arterial Blood Oxygen Saturation 91.3 % Deoxyhemoglobin 8.6 % Carboxyhemoglobin 0.7 % Methemoglobin 0.3 % Total Hemoglobin 13.8 % Total Oxygen Concentration 17.5 % Blood Gas Temperature 37 Oxygen Delivery Method (LAB) VENT Blood Gas Vent Mode AC Blood Gas Vent Rate 22 FiO2 100 % Blood Gas Tidal Volume 500 ML Blood Gas PEEP 14 CMH2O Total Carbon Dioxide 20.7 mmol/L Lactic Acid Level 1.1 mmol/L Influenza Type A Antigen NEGATIVE Influenza B Immunofluorescence NEGATIVE Activated Partial Thromboplast Time 27.2 SEC Fibrinogen 621 mg/dL D-Dimer 5.93 mg/L Triglycerides Level 207 mg/dL Vancomycin Level Trough 10.8 ug/mL Test 09/10/20 04:20 09/10/20 07:41 09/10/20 15:55 Blood Gas Sample Site LEFT RADIAL ARTERY Blood Gas pH 7.477 Blood Gas PCO2 40.6 mmHg Blood Gas PO2 52.8 mmHg Blood Gas HCO3 29.4 mmol/L Blood Gas Base Excess 5.4 mmol/L Vince Test POSITIVE Arterial Blood Oxygen Saturation 87.5 % Deoxyhemoglobin 12.2 % Carboxyhemoglobin 2.4 % Methemoglobin 0.3 % Total Hemoglobin 15.1 % Total Oxygen Concentration 18.0 % Blood Gas Temperature 37.0 Oxygen Delivery Method (LAB) VENT Blood Gas Vent Mode AC Blood Gas Vent Rate 22 FiO2 100 % Blood Gas Tidal Volume 500 ML Blood Gas PEEP 12.0 CMH2O Total Carbon Dioxide 30.6 mmol/L Bedside Glucose 95 198 Height (Feet): 5 Height (Inches): 7 Current Weight: 204 %IBW: 138 Recent Weight Change: No Weight Status: Obese Food Allergies: No Skin Integrity/Comment: Yes BEE in Kcals: Use Current Weight Calories/Kcals/Kg: Herminio St Eq for vent Kcals Calculated: 2048 kcal Protein: Use Current Weight Protein g/k.8-1 Protein Calculated: 74-93g Fluid: ml: 2048 ml (1ml/kcal) Nutritional Problem: Nutr. Problems Present Problems: Inadequate enteral nurition infusion Etiology: pt not being fed in the prone position and tolerating poorly Signs/Symptoms: pt had only 1 can of twocal formula yesterday which provides 475 kcal and 20g protein. RD Comments: 1. Recommend 260 ml bolus of twocal formula q 3 hrs while pt is in supine position as tolerated. (goal is three 260 ml bolus pushes during the 8 hrs supine). 250 ml water flushes q 4 hrs. This will provide 1560 kcal, 65 g pro, 171 g CHO, 71 g fat, and 2046 mls of water meeting 100% of the pts needs in combination with propofol. 2. Monitor lytes and BG and correct as indicated. 3. RD to update recommendations based on vent and sedation settings. Expected Outcomes three 260 ml bolus pushes of twocal formula while pt is in supine position the next 2 days. Discharge goal is pending. Malnutrtion/Nutrition Risk Edu: No MD Notificiation Needed?: No Brittany Coleman Sep 09, 2020 21:15
[2020-09-10] VITALS (54 sets, daily range): BP systolic 62–212; BP diastolic 37–99
[2020-09-10] MEDS: ZOSYN 3.375 GM 3.375 GM in NS 100ML 100 ML IV SCH ×3 (01:00→18:02)
[2020-09-10] MEDS: DUO 0.5-3(2.5) MG/3 ML IH SCH ×4 (03:30→21:43)
[2020-09-10 04:26] LABS: ABG PCO2 40.6 mmHg (35.0-45.0); ABG PH 7.477 (7.350-7.450); BE(B) 5.4 mmol/L (-2.0-2.0); HCO3act 29.4 mmol/L (22.0-26.0); pO2 52.8 mmHg (80.0-100.0)
[2020-09-10 04:34] LABS: MEAN CORP HGB 31.8 pg (26-34); RED CELL DISTRIBUTION WIDTH 12.2 % (11.5-14.5)
[2020-09-10 04:53] LABS: CARBON DIOXIDE 30.8 mmol/L (20.0-32)
[2020-09-10] MEDS: VANCOMYCIN HCL 1 GM in NS 250ML 250 ML IV SCH ×3 (05:00→21:00)
--- NOTE | 2020-09-10 05:00 | NUR ---
Dr Pickens notified of critical D Dimer of 5.93. No orders placed. Will continue to monitor. Safety maintained. Addendum: 09/10/20 at 0659 by Geoffrey Calzada RN, MARIELY RN Other labs were added tofurt check status of the pt. Reviewed with the provider. Will continue to monitor
--- NOTE | 2020-09-10 05:15 | NUR ---
of [facility], Evelyn, called and was given status of pt. Updated on his position and vital signs. Will continue to monitor.
--- NOTE | 2020-09-10 06:10 | NUR ---
Pt appears with lower sats then before. Staying at 88-90% which is lower than his 92% and up from earlier in the shift. Provider Nelia notified, added stat lasix 40 MG IV. Med has been given, will continue to monitor.
[2020-09-10] MEDS ORDERED: LASIX IV STA (06:17)
[2020-09-10] MEDS: DIPRIVAN IV PRN ×3 (08:25→16:36)
[2020-09-10] MEDS: VITAMIN C PO SCH ×2 (08:43→21:00)
[2020-09-10] MEDS: ZINC SULFATE PO SCH (08:43)
[2020-09-10] MEDS: PEPCID IV SCH ×2 (08:43→21:00)
[2020-09-10] MEDS: ASPIRIN PO SCH (08:43)
[2020-09-10] MEDS: DEXAMETHASONE 10 MG/ML VIAL IV SCH (08:43)
[2020-09-10] MEDS: LOVENOX SQ SCH ×2 (08:44→21:00)
--- NOTE | 2020-09-10 09:00 | NUR ---
0700 - Report obtained from previous nurse. Pt sedated on fentanyl, ropofol and precedex. vent settings 100/ 50/22/+14 pt satting 88-89%. 0725 - Respiratory therapist called, pt due for turning supine. Therapist states they are in route to unit. 0810 Addendum: 09/10/20 at 1144 by LAURYN PURCELL RN, FEMA/MARIELY RN 0810 - Respiratory therapist on unit pt placed in supine position. Oxygen saturation in the 70's. Heart rate increased. 0830 - Dr Boogie (at bedside) and Dr Rodriguez (via [employer]) updated on pt's condition. Respiratory therapist perform recruitment maneuver sats improving. Pt's temp 101.1, ice packs placed to groin and axilla. 0921- Pt medicated with vecuronium 15 Mg as requested by DR Rodriguez, Sats noted in the low 90's. 0936 - CXRay competed. Pt temp noted to be 102 rectally. 1000 - Cooling blanket placed under patient. Pt desated down to 68%. Respiratory therapist aware, BM ventilation performed, Peep increased to 16, pt's position adjusted sats up to 80% but continue to decline. 1100- Dr Boogie and Jennifer updated. Pt placed in prone position, Oxygen saturation 78-80%. [facility] [employer]
--- NOTE | 2020-09-10 09:14 | TELE.CONS ---
Consultation Reason for Consult: Reason for Consultation: covid pneumonia acute respiratory failure History of Present Illness History of Patient Comments This AM had severe hypoxemia prior to and during change to supine position, slowly recovered to SaO2 91% Review of Systems Constitutional: Fever ENT: Other Respiratory: Shortness of breath, SOB with excertion Allergies: Coded Allergies: Sulfa (Sulfonamide Antibiotics) (Verified Allergy, Mild, 08/31/20) Scheduled Atorvastatin 10MG (Lipitor 10MG), 1 TAB PO HS, (Reported) Bisoprolol Fumarate/Hctz (Bisoprolol-Hctz 5-6.25 Mg Tab), 1 TAB PO DAILY, (Reported) Temazepam (Restoril), 1 CAP PO HS, (Reported) VITALS REVIEW VITALS Vital Sign - Last 24 Hours 08/31/20 08/31/20 08/31/20 08/31/20 00:59 00:59 00:59 01:31 Temp 99.3 99.1 99.1 99.1 Pulse 96 96 96 89 Resp 22 22 22 22 B/P (MAP) 154/64 (94) 133/78 (96) Pulse Ox 85 85 85 O2 Delivery Non-Rebreather Non-Rebreather O2 Flow Rate 15.00 15.00 08/31/20 08/31/20 08/31/20 08/31/20 02:09 03:00 03:05 03:25 Temp 99.2 99.2 99.6 Pulse 85 86 102 Resp 23 22 22 B/P (MAP) 130/82 (98) 135/75 (95) 159/87 (111) Pulse Ox 90 91 90 O2 Delivery Non-Rebreather Bi-pap Non-Rebreather Non-Rebreather O2 Flow Rate 15.00 100.00 15.00 15.00 08/31/20 08/31/20 08/31/20 08/31/20 04:27 04:48 04:56 06:14 Temp 99.3 Pulse 92 114 85 Resp 30 42 22 B/P (MAP) 136/82 (100) Pulse Ox 86 88 90 O2 Delivery Comfort Ryne S/T Non-Rebreather S/T O2 Flow Rate 60.00 15.00 FiO2 100 100 100 08/31/20 08/31/20 08/31/20 08/31/20 08:08 08:30 08:54 08:54 Pulse 111 114 Resp 39 44 B/P (MAP) 141/91 Pulse Ox 91 91 O2 Delivery Bi-pap 08/31/20 08/31/20 08/31/20 08/31/20 08:57 08:57 09:03 11:27 Temp 100.0 Pulse 119 110 103 104 Resp 44 45 60 36 B/P (MAP) 141/91 (108) Pulse Ox 90 87 89 94 O2 Delivery CPAP CPAP FiO2 100 100 08/31/20 08/31/20 08/31/20 08/31/20 11:49 14:30 15:23 15:45 Temp 98.5 Pulse 111 92 91 Resp 58 49 49 B/P (MAP) 119/85 (96) Pulse Ox 89 90 90 O2 Delivery CPAP FiO2 100 08/31/20 08/31/20 08/31/20 08/31/20 15:52 16:00 16:00 16:30 Temp 97.3 98.0 Pulse 93 85 92 Resp 44 55 40 B/P (MAP) 145/95 (112) 128/78 (95) Pulse Ox 89 91 91 O2 Delivery Bi-pap 08/31/20 08/31/20 08/31/20 08/31/20 16:34 16:45 16:49 17:00 Pulse 86 86 98 89 Resp 62 34 42 B/P (MAP) 127/82 (97) Pulse Ox 90 89 88 93 08/31/20 08/31/20 08/31/20 08/31/20 17:01 17:02 17:02 17:04 Pulse 93 99 101 87 Resp 39 39 38 37 B/P (MAP) 128/78 (95) Pulse Ox 92 91 91 90 O2 Delivery CPAP FiO2 100 08/31/20 08/31/20 08/31/20 08/31/20 17:15 17:19 17:30 17:34 Pulse 83 89 91 88 Resp 78 34 32 B/P (MAP) 136/109 (118) 134/78 (96) Pulse Ox 90 87 89 88 08/31/20 08/31/20 08/31/20 08/31/20 17:45 17:49 18:00 18:02 Pulse 89 87 89 92 Resp 69 54 47 B/P (MAP) 134/91 (105) Pulse Ox 86 89 88 89 O2 Delivery CPAP FiO2 100 11/20/20 08/31/20 08/31/20 08/31/20 18:04 18:15 18:19 19:34 Pulse 84 86 77 82 Resp 43 26 39 49 B/P (MAP) 138/68 (91) 125/58 (80) 117/74 (88) Pulse Ox 88 91 90 93 08/31/20 08/31/20 08/31/20 08/31/20 19:45 19:49 20:00 20:00 Pulse 74 69 97 Resp 41 42 57 B/P (MAP) 118/69 (85) Pulse Ox 94 92 86 O2 Delivery C-Pap 08/31/20 08/31/20 08/31/20 08/31/20 20:04 20:15 20:19 20:30 Pulse 87 71 81 81 Resp 37 28 41 B/P (MAP) 121/77 (92) 124/69 (87) Pulse Ox 88 93 91 91 08/31/20 08/31/20 08/31/20 08/31/20 20:34 20:45 20:49 20:50 Temp 97.0 Pulse 78 76 84 Resp 43 48 B/P (MAP) 124/69 (87) 115/79 (91) Pulse Ox 90 93 91 08/31/20 08/31/20 08/31/20 08/31/20 21:00 21:04 21:15 21:19 Pulse 82 88 86 86 Resp 47 57 26 40 B/P (MAP) 126/84 (98) 138/72 (94) Pulse Ox 91 87 89 87 08/31/20 08/31/20 08/31/20 08/31/20 21:30 21:34 21:45 21:45 Pulse 99 92 88 98 Resp 42 33 83 B/P (MAP) 142/85 (104) Pulse Ox 88 89 91 89 O2 Delivery CPAP FiO2 100 08/31/20 08/31/20 08/31/20 09/01/20 22:44 22:46 22:46 00:00 Temp 98.4 Pulse 88 88 88 Resp 33 33 33 Pulse Ox 90 90 91 09/01/20 09/01/20 09/01/20 09/01/20 00:00 00:30 04:00 04:00 Temp 98.1 Pulse 83 Resp 41 Pulse Ox 92 O2 Delivery C-Pap CPAP C-Pap FiO2 100 11/21/09/01/20 09/01/20 09/01/20 04:00 04:09 04:15 04:23 Pulse 73 94 86 76 Resp 43 36 27 50 B/P (MAP) 133/71 (91) 104/49 (67) Pulse Ox 92 83 89 91 09/01/20 09/01/20 09/01/20 09/01/20 04:30 04:39 04:45 04:54 Pulse 82 96 94 Resp 42 48 B/P (MAP) 131/87 (102) 105/43 (63) Pulse Ox 91 82 86 85 09/01/20 09/01/20 09/01/20 09/01/20 05:00 05:00 05:08 05:15 Pulse 84 103 110 99 Resp 40 47 73 46 B/P (MAP) 120/75 (90) Pulse Ox 93 85 83 90 O2 Delivery CPAP FiO2 100 09/01/20 09/01/20 09/01/20 09/01/20 05:23 05:30 05:38 05:45 Pulse 102 88 94 88 Resp 28 33 47 B/P (MAP) 110/66 (81) 118/71 (87) Pulse Ox 79 82 88 91 09/01/20 09/01/20 09/01/20 09/01/20 05:53 07:15 09:36 09:36 Pulse 98 111 107 Resp 45 45 B/P (MAP) 116/76 (89) Pulse Ox 87 91 90 O2 Delivery C-Pap 09/01/20 09/01/20 09/01/20 09/01/20 09:37 10:47 11:00 11:48 Pulse 111 76 76 Resp 51 22 22 Pulse Ox 91 91 91 O2 Delivery CPAP Mechanical Ventilator FiO2 100 100 100 09/01/20 09/01/20 09/01/20 09/01/20 14:50 14:50 14:50 14:54 Pulse 74 74 76 74 Resp 22 22 22 22 Pulse Ox 94 94 91 94 FiO2 100 09/01/20 09/01/20 09/01/20 09/01/20 15:00 15:48 15:58 16:00 Pulse 102 73 75 Resp 25 24 B/P (MAP) 107/69 (82) Pulse Ox 91 95 95 O2 Delivery Mechanical Ventilator 09/01/20 09/01/20 09/01/20 09/01/20 16:01 16:04 16:07 16:10 Pulse 77 75 78 73 Resp 23 23 24 22 B/P (MAP) 104/66 (79) 102/63 (76) 104/58 (73) 102/62 (75) Pulse Ox 95 95 95 95 09/01/20 09/01/20 09/01/20 09/01/20 16:13 16:15 16:16 16:19 Pulse 72 77 77 77 Resp 21 23 23 22 B/P (MAP) 101/62 (75) 107/61 (76) 100/61 (74) Pulse Ox 95 95 95 96 09/01/20 09/01/20 09/01/20 09/01/20 16:22 16:25 16:28 16:30 Pulse 78 76 77 78 Resp 23 24 23 23 B/P (MAP) 100/60 (73) 105/61 (76) 101/65 (77) Pulse Ox 95 95 95 95 09/01/20 09/01/20 09/01/20 09/01/20 16:31 16:34 16:37 16:56 Pulse 77 77 79 73 Resp 24 24 23 22 B/P (MAP) 102/61 (75) 101/64 (76) 98/62 (74) Pulse Ox 95 96 95 93 FiO2 100 09/01/20 09/01/20 09/01/20 09/01/20 19:13 19:15 19:16 19:19 Pulse 67 79 81 73 Resp 22 24 25 B/P (MAP) 106/72 (83) 112/67 (82) 105/60 (75) Pulse Ox 96 85 91 92 09/01/20 09/01/20 09/01/20 09/01/20 19:22 19:25 19:28 19:30 Pulse 74 71 73 73 Resp 24 23 23 24 B/P (MAP) 105/60 (75) 106/61 (76) 106/62 (77) Pulse Ox 91 91 91 92 09/01/20 09/01/20 09/01/20 09/01/20 19:31 19:34 19:37 19:40 Pulse 72 72 72 71 Resp 23 23 23 23 B/P (MAP) 106/62 (77) 107/64 (78) 102/60 (74) 105/61 (76) Pulse Ox 92 92 92 92 11/2109/01/20 09/01/20 09/01/20 19:43 19:45 19:46 19:49 Pulse 72 71 71 72 Resp 22 23 24 24 B/P (MAP) 108/59 (75) 107/61 (76) 106/61 (76) Pulse Ox 92 92 92 92 09/01/20 09/01/20 09/01/20 09/01/20 19:52 19:55 19:58 20:00 Pulse 72 72 73 72 Resp 23 23 23 26 B/P (MAP) 104/64 (77) 104/63 (77) 100/62 (75) Pulse Ox 92 92 91 92 FiO2 100 09/01/20 09/01/20 09/01/20 09/01/20 20:00 20:13 20:15 20:16 Pulse 72 73 73 Resp 23 23 23 B/P (MAP) 105/61 (76) 106/63 (77) Pulse Ox 90 90 90 O2 Delivery Mechanical Ventilator 09/01/20 09/01/20 09/01/20 09/01/20 20:19 20:22 20:25 20:28 Pulse 73 72 73 72 Resp 22 22 23 23 B/P (MAP) 105/63 (77) 104/62 (76) 106/61 (76) 102/62 (75) Pulse Ox 90 91 90 91 09/01/20 09/01/20 09/01/20 09/01/20 20:30 20:31 20:34 20:37 Pulse 71 72 69 73 Resp 23 23 22 22 B/P (MAP) 107/66 (80) 103/55 (71) 99/57 (71) Pulse Ox 91 91 90 90 09/01/20 09/01/20 09/01/20 09/01/20 20:40 20:43 20:45 20:46 Pulse 71 70 77 72 Resp 22 22 22 22 B/P (MAP) 105/61 (76) 103/62 (76) 111/64 (80) Pulse Ox 90 90 91 92 09/01/20 09/01/20 09/01/20 09/01/20 20:49 20:52 20:55 20:58 Pulse 73 73 67 74 Resp 22 22 22 23 B/P (MAP) 104/61 (75) 108/62 (77) 111/63 (79) 108/63 (78) Pulse Ox 92 92 93 92 09/01/20 09/01/20 09/01/20 09/01/20 21:10 21:11 21:12 21:12 Pulse 74 74 74 74 Resp 22 22 22 22 Pulse Ox 91 91 91 91 FiO2 100 09/01/20 09/01/20 09/01/20 09/01/20 21:46 21:49 21:52 21:55 Pulse 80 80 79 79 Resp 22 22 22 22 B/P (MAP) 106/62 (77) 110/63 (79) 109/63 (78) 110/58 (75) Pulse Ox 91 92 91 91 09/01/20 09/01/20 09/01/20 09/01/20 21:58 22:00 22:01 22:04 Pulse 79 78 80 80 Resp 22 22 22 23 B/P (MAP) 108/59 (75) 108/64 (79) 106/60 (75) Pulse Ox 92 92 92 92 09/01/20 09/01/20 09/01/20 09/01/20 22:07 22:10 22:13 22:15 Pulse 81 79 77 80 Resp 25 24 24 23 B/P (MAP) 107/61 (76) 107/63 (78) 110/65 (80) Pulse Ox 92 92 92 92 09/01/20 09/01/20 09/01/20 09/01/20 22:16 22:19 22:22 22:25 Pulse 79 80 80 77 Resp 24 25 24 25 B/P (MAP) 106/60 (75) 111/61 (78) 109/62 (78) 109/61 (77) Pulse Ox 92 92 92 92 09/01/20 09/01/20 09/01/20 09/01/20 22:28 22:30 22:31 22:34 Pulse 77 80 78 78 Resp 24 24 24 23 B/P (MAP) 110/67 (81) 106/63 (77) 110/63 (79) Pulse Ox 92 92 92 92 09/01/20 09/01/20 09/01/20 09/01/20 23:10 23:30 23:31 23:34 Pulse 76 77 74 76 Resp 22 22 23 26 B/P (MAP) 113/62 (79) 107/62 (77) Pulse Ox 92 92 92 92 FiO2 100 09/01/20 09/01/20 09/01/20 09/01/20 23:37 23:40 23:43 23:45 Pulse 76 76 73 75 Resp B/P (MAP) 109/61 (77) 109/58 (75) 112/62 (79) Pulse Ox 92 93 93 93 09/01/20 09/01/20 09/01/20 09/01/20 23:46 23:49 23:52 23:55 Pulse 74 74 83 72 Resp B/P (MAP) 112/59 (76) 113/66 (82) 116/67 (83) 117/66 (83) Pulse Ox 93 93 94 93 09/01/20 09/02/20 09/02/20 09/02/20 23:58 00:00 00:00 00:13 Pulse 78 80 75 Resp B/P (MAP) 118/65 (82) 114/66 (82) Pulse Ox 93 93 93 O2 Delivery Mechanical Ventilator FiO2 100 09/02/20 09/02/20 09/02/20 09/02/20 00:15 00:16 00:19 00:22 Pulse 76 77 75 75 Resp B/P (MAP) 118/65 (82) 114/67 (83) 119/63 (81) Pulse Ox 93 93 92 93 09/02/20 09/02/20 09/02/20 09/02/20 00:25 00:28 00:30 00:31 Pulse 76 75 76 77 Resp B/P (MAP) 117/68 (84) 115/65 (82) 115/64 (81) Pulse Ox 93 92 92 92 09/02/20 09/02/20 09/02/20 09/02/20 00:34 00:37 00:40 00:43 Pulse 77 80 79 80 Resp B/P (MAP) 112/62 (79) 110/63 (79) 110/63 (79) 107/64 (78) Pulse Ox 93 92 92 92 09/02/20 09/02/20 09/02/20 09/02/20 00:45 00:46 00:49 00:52 Pulse 82 81 79 80 Resp B/P (MAP) 108/63 (78) 109/61 (77) 107/67 (80) Pulse Ox 92 92 92 93 09/02/20 09/02/20 09/02/20 09/02/20 00:55 00:58 01:13 01:15 Pulse 80 77 80 73 Resp 22 B/P (MAP) 109/65 (80) 109/63 (78) 114/60 (78) Pulse Ox 92 93 88 91 09/02/20 09/02/20 09/02/20 09/02/20 01:16 01:19 01:22 01:25 Pulse 76 77 75 74 Resp 22 B/P (MAP) 107/64 (78) 108/59 (75) 110/63 (79) 109/62 (78) Pulse Ox 92 92 92 93 09/02/20 09/02/20 09/02/20 09/02/20 01:28 01:30 01:31 01:34 Pulse 73 73 75 77 Resp B/P (MAP) 110/61 (77) 109/63 (78) 107/61 (76) Pulse Ox 92 92 92 93 09/02/20 09/02/20 09/02/20 09/02/20 01:37 01:40 01:43 01:45 Pulse 76 76 75 74 Resp 22 B/P (MAP) 105/64 (78) 105/62 (76) 104/63 (77) Pulse Ox 93 92 92 92 09/02/20 09/02/20 09/02/20 09/02/20 01:46 01:49 01:52 01:55 Pulse 75 77 79 75 Resp B/P (MAP) 113/62 (79) 108/64 (79) 107/61 (76) 107/62 (77) Pulse Ox 92 93 93 93 09/02/20 09/02/20 09/02/20 09/02/20 01:58 02:20 02:25 02:28 Pulse 76 79 74 71 Resp 22 B/P (MAP) 110/61 (77) 104/61 (75) 104/59 (74) Pulse Ox 92 93 93 93 FiO2 100 09/02/20 09/02/20 09/02/20 09/02/20 02:30 02:31 02:34 02:37 Pulse 73 70 69 70 Resp 22 B/P (MAP) 104/59 (74) 103/60 (74) 102/58 (73) Pulse Ox 93 93 93 93 09/02/20 09/02/20 09/02/20 09/02/20 02:40 02:43 02:45 02:46 Pulse 70 73 73 71 Resp B/P (MAP) 105/60 (75) 103/59 (74) 102/60 (74) Pulse Ox 93 93 93 93 09/02/20 09/02/20 09/02/20 09/02/20 02:49 02:52 02:55 02:58 Pulse 72 74 75 72 Resp B/P (MAP) 105/60 (75) 101/59 (73) 102/56 (71) 103/55 (71) Pulse Ox 93 93 93 93 09/02/20 09/02/20 09/02/20 09/02/20 03:00 03:01 03:04 03:07 Pulse 73 71 69 70 Resp B/P (MAP) 102/58 (73) 100/57 (71) 99/57 (71) Pulse Ox 93 93 93 93 09/02/20 09/02/20 09/02/20 09/02/20 03:10 03:13 03:22 03:25 Pulse 70 71 71 69 Resp B/P (MAP) 99/59 (72) 102/56 (71) 100/60 (73) 102/60 (74) Pulse Ox 93 93 93 93 09/02/20 09/02/20 09/02/20 09/02/20 03:28 03:29 03:31 03:34 Pulse 69 71 70 69 Resp B/P (MAP) 102/58 (73) 103/56 (72) 101/60 (74) Pulse Ox 93 93 93 93 09/02/20 09/02/20 09/02/20 09/02/20 03:37 03:40 03:43 03:44 Pulse 71 69 72 70 Resp B/P (MAP) 105/61 (76) 105/54 (71) 102/58 (73) Pulse Ox 93 93 93 92 09/02/20 09/02/20 09/02/20 09/02/20 03:46 03:49 03:52 03:55 Pulse 69 71 74 75 Resp 23 B/P (MAP) 104/59 (74) 101/56 (71) 104/58 (73) 102/59 (73) Pulse Ox 93 93 93 93 09/02/20 09/02/20 09/02/20 09/02/20 03:58 03:59 04:00 04:00 Pulse 72 76 80 Resp B/P (MAP) 104/56 (72) Pulse Ox 92 93 93 O2 Delivery Mechanical Ventilator FiO2 100 09/02/20 09/02/20 09/02/20 09/02/20 04:01 04:04 04:04 04:08 Pulse 75 87 Resp 22 B/P (MAP) 103/61 (75) 107/56 (73) 107/56 (73) Pulse Ox 92 90 90 94 09/02/20 09/02/20 09/02/20 09/02/20 04:08 04:09 04:09 04:22 Temp 98.8 Pulse 87 Resp B/P (MAP) 123/65 (84) Pulse Ox 94 92 92 09/02/20 09/02/20 09/02/20 09/02/20 04:24 04:28 04:30 04:31 Temp 98.8 98.6 98.6 98.6 Pulse 123 120 126 115 Resp B/P (MAP) 128/73 (91) 121/77 (92) 129/70 (89) Pulse Ox 97 98 98 98 09/02/20 09/02/20 09/02/20 09/02/20 04:34 04:37 04:40 04:43 Temp 98.6 98.6 98.6 98.6 Pulse 114 105 97 94 Resp B/P (MAP) 127/83 (98) 127/82 (97) 118/63 (81) 115/64 (81) Pulse Ox 97 98 97 97 09/02/20 09/02/20 09/02/20 09/02/20 04:45 04:46 04:49 04:49 Temp 98.6 98.6 98.6 Pulse 94 92 87 118 Resp B/P (MAP) 118/72 (87) 139/87 (104) Pulse Ox 97 96 94 98 FiO2 100 1109/02/20 09/02/20 09/02/20 04:52 04:55 04:58 05:07 Temp 98.6 98.6 98.6 98.6 Pulse 122 116 104 90 Resp 34 36 32 28 B/P (MAP) 144/95 (111) 130/74 (92) 123/66 (85) 113/67 (82) Pulse Ox 98 98 98 97 09/02/20 09/02/20 09/02/20 09/02/20 05:10 05:13 05:15 05:16 Temp 98.6 98.6 98.6 98.6 Pulse 105 99 122 104 Resp B/P (MAP) 130/76 (94) 129/77 (94) 129/72 (91) Pulse Ox 97 97 98 97 09/02/20 09/02/20 09/02/20 09/02/20 05:19 05:22 05:25 05:28 Temp 98.6 98.6 98.6 98.6 Pulse 104 112 113 95 Resp B/P (MAP) 125/74 (91) 140/95 (110) 136/70 (92) 119/62 (81) Pulse Ox 98 98 98 97 09/02/20 09/02/20 09/02/20 09/02/20 05:30 05:31 05:34 05:37 Temp 98.6 98.6 98.6 98.6 Pulse 93 91 92 93 Resp B/P (MAP) 113/65 (81) 113/62 (79) 118/66 (83) Pulse Ox 97 97 97 97 09/02/20 09/02/20 09/02/20 09/02/20 05:40 05:43 05:45 05:46 Temp 98.6 98.6 98.6 98.6 Pulse 105 103 96 95 Resp B/P (MAP) 125/74 (91) 136/83 (100) 116/66 (83) Pulse Ox 98 98 98 98 09/02/20 09/02/20 09/02/20 09/02/20 05:49 05:52 07:00 07:00 Temp 98.6 98.6 Pulse 90 91 80 Resp 27 B/P (MAP) 116/64 (81) 111/57 (75) Pulse Ox 97 97 93 O2 Delivery Mechanical Ventilator FiO2 100 09/02/20 09/02/20 09/02/20 09/02/20 07:21 07:21 07:28 07:30 Temp 99.0 99.0 Pulse 98 98 83 87 Resp 23 B/P (MAP) 112/65 (81) Pulse Ox 97 97 97 97 FiO2 100 09/02/20 09/02/20 09/02/20 09/02/20 07:31 07:34 07:37 07:40 Temp 99.0 99.0 99.0 99.1 Pulse 80 80 80 78 Resp 23 B/P (MAP) 106/60 (75) 108/62 (77) 107/56 (73) 112/65 (81) Pulse Ox 97 97 97 97 09/02/20 09/02/20 09/02/20 09/02/20 07:43 07:45 07:46 07:49 Temp 99.1 99.1 99.1 99.1 Pulse 81 78 85 84 Resp B/P (MAP) 106/58 (74) 108/60 (76) 107/60 (76) Pulse Ox 97 97 97 97 09/02/20 09/02/20 09/02/20 09/02/20 07:52 07:55 07:58 08:00 Temp 99.1 99.1 99.3 99.1 Pulse 83 100 94 87 Resp 34 43 26 45 B/P (MAP) 106/59 (75) 113/71 (85) 107/67 (80) Pulse Ox 97 97 97 97 09/02/20 09/02/20 09/02/20 09/02/20 08:01 08:04 08:07 08:10 Temp 99.1 99.3 99.1 99.1 Pulse 84 84 83 83 Resp 36 36 25 28 B/P (MAP) 105/57 (73) 99/60 (73) 103/62 (76) 101/51 (68) Pulse Ox 97 96 97 96 09/02/20 09/02/20 09/02/20 09/02/20 08:13 08:30 08:31 08:34 Temp 99.1 99.3 99.3 99.3 Pulse 84 84 83 82 Resp 22 23 26 24 B/P (MAP) 102/53 (69) 104/59 (74) 103/56 (72) Pulse Ox 96 96 96 96 09/02/20 09/02/20 09/02/20 09/02/20 08:37 08:40 08:43 08:45 Temp 99.3 99.3 99.3 99.3 Pulse 80 84 84 83 Resp B/P (MAP) 97/54 (68) 103/54 (70) 97/58 (71) Pulse Ox 96 96 96 96 09/02/20 09/02/20 09/02/20 09/02/20 08:46 08:49 08:52 08:55 Temp 99.3 99.3 99.3 99.3 Pulse 82 83 83 84 Resp B/P (MAP) 97/55 (69) 97/55 (69) 100/58 (72) 96/59 (71) Pulse Ox 96 96 96 96 09/02/20 09/02/20 09/02/20 09/02/20 08:58 09:00 09:01 09:04 Temp 99.3 99.3 99.5 99.3 Pulse 83 90 95 98 Resp B/P (MAP) 102/57 (72) 130/76 (94) 133/81 (98) Pulse Ox 96 97 97 97 09/02/20 09/02/20 09/02/20 09/02/20 09:06 09:06 09:07 09:10 Temp 99.3 99.3 Pulse 99 98 99 95 Resp B/P (MAP) 135/76 (95) 136/79 (98) Pulse Ox 97 97 97 98 09/02/20 09/02/20 09/02/20 09/02/20 09:13 09:15 09:15 09:16 Temp 99.3 99.3 99.3 99.3 Pulse 85 102 102 84 Resp B/P (MAP) 145/91 (109) 131/78 (95) Pulse Ox 98 98 98 97 09/02/20 09/02/20 09/02/20 09/02/20 09:16 09:30 09:32 09:45 Temp 99.3 99.1 99.1 99.3 Pulse 84 82 84 80 Resp B/P (MAP) 131/78 (95) 114/63 (80) Pulse Ox 97 97 98 98 09/02/20 09/02/20 09/02/20 09/02/20 09:47 09:59 10:00 10:02 Temp 99.3 99.3 99.3 Pulse 79 83 81 80 Resp B/P (MAP) 114/62 (79) 110/61 (77) Pulse Ox 98 98 98 98 FiO2 100 09/02/20 09/02/20 09/02/20 09/02/20 10:15 10:15 10:17 10:17 Temp 99.3 99.3 99.3 99.3 Pulse 84 84 83 83 Resp B/P (MAP) 114/61 (78) 114/61 (78) Pulse Ox 97 97 98 98 09/02/20 09/02/20 09/02/20 09/02/20 10:30 10:30 10:32 10:45 Temp 99.3 99.3 99.3 Pulse 84 82 85 Resp B/P (MAP) 111/61 (78) Pulse Ox 97 97 97 FiO2 90 09/02/20 09/02/20 09/02/20 09/02/20 10:47 11:00 11:02 11:15 Temp 99.3 99.3 99.5 99.5 Pulse 84 89 87 91 Resp B/P (MAP) 108/60 (76) 111/61 (78) Pulse Ox 97 97 96 95 09/02/20 09/02/20 09/02/20 09/02/20 11:17 11:26 11:26 11:30 Temp 99.5 Pulse 87 80 80 Resp B/P (MAP) 111/67 (82) Pulse Ox 95 93 93 O2 Delivery Mechanical Ventilator FiO2 100 90 09/02/20 09/02/20 09/02/20 09/02/20 11:30 11:32 11:39 11:45 Temp 99.5 99.5 99.5 Pulse 83 85 90 85 Resp B/P (MAP) 118/68 (85) Pulse Ox 96 95 97 97 FiO2 90 09/02/20 09/02/20 09/02/20 09/02/20 11:45 11:47 11:47 12:00 Temp 99.5 99.5 99.5 99.5 Pulse 85 89 89 84 Resp B/P (MAP) 126/69 (88) 126/69 (88) Pulse Ox 97 96 96 97 09/02/20 09/02/20 09/02/20 09/02/20 12:02 12:15 12:17 12:30 Temp 99.5 99.5 99.5 99.3 Pulse 83 81 82 86 Resp B/P (MAP) 121/68 (85) 120/67 (84) Pulse Ox 97 97 97 96 09/02/20 09/02/20 09/02/20 09/02/20 12:32 12:45 12:47 13:00 Temp 99.3 99.3 99.3 99.3 Pulse 81 82 79 82 Resp B/P (MAP) 116/71 (86) 113/70 (84) Pulse Ox 96 96 96 96 09/02/20 09/02/20 09/02/20 09/02/20 13:02 13:47 14:00 14:02 Temp 99.3 99.3 99.3 99.5 Pulse 81 75 79 73 Resp B/P (MAP) 111/65 (80) 113/66 (82) 113/65 (81) Pulse Ox 95 97 97 96 09/02/20 09/02/20 09/02/20 09/02/20 14:11 14:15 14:17 14:30 Temp 99.5 99.5 99.5 Pulse 78 80 76 81 Resp B/P (MAP) 119/71 (87) Pulse Ox 98 96 97 95 FiO2 90 09/02/20 09/02/20 09/02/20 09/02/20 14:32 14:45 14:47 15:00 Temp 99.5 99.7 99.7 99.7 Pulse 79 77 78 87 Resp B/P (MAP) 112/67 (82) 115/68 (84) Pulse Ox 96 96 96 09/02/20 09/02/20 09/02/20 09/02/20 15:02 15:15 15:17 15:30 Temp 99.7 99.7 99.7 99.7 Pulse 66 69 67 76 Resp B/P (MAP) 119/67 (84) 119/70 (86) Pulse Ox 93 96 96 97 09/02/20 09/02/20 09/02/20 09/02/20 15:32 15:45 15:47 15:48 Temp 99.7 99.7 99.7 Pulse 76 76 80 78 Resp B/P (MAP) 115/69 (84) 116/67 (83) Pulse Ox 97 97 97 96 09/02/20 09/02/20 09/02/20 09/02/20 15:48 15:51 16:00 16:02 Temp 99.9 99.9 Pulse 78 77 76 77 Resp B/P (MAP) 113/70 (84) Pulse Ox 96 97 97 97 FiO2 90 09/02/20 09/02/20 09/02/20 09/02/20 16:15 16:17 16:26 16:26 Temp 99.9 99.9 Pulse 79 79 80 Resp 09 23 27 B/P (MAP) 113/68 (83) Pulse Ox 97 97 93 O2 Delivery Mechanical Ventilator FiO2 90 09/02/20 09/02/20 09/02/20 09/02/20 16:30 16:45 16:47 17:00 Temp 100.0 100.0 100.0 100.0 Pulse 82 80 78 78 Resp B/P (MAP) 115/65 (82) Pulse Ox 97 97 97 97 09/02/20 09/02/20 09/02/20 09/02/20 17:02 17:15 17:17 17:29 Temp 100.0 100.2 100.2 Pulse 75 74 75 69 Resp 04 22 22 B/P (MAP) 120/73 (89) 116/73 (87) Pulse Ox 97 97 97 98 FiO2 90 09/02/20 09/02/20 09/02/20 09/02/20 17:30 17:30 17:32 17:45 Temp 100.2 100.2 100.4 Pulse 69 74 69 71 Resp B/P (MAP) 118/73 (88) Pulse Ox 98 97 97 97 O2 Delivery Mechanical Ventilator FiO2 90 11/22/20 11/22/20 11/22/20 11/22/20 17:47 18:00 18:02 18:15 Temp 100.4 100.4 100.4 100.4 Pulse 70 68 68 72 Resp 25 B/P (MAP) 118/70 (86) 117/72 (87) Pulse Ox 97 98 98 98 09/02/20 09/02/20 09/02/20 09/02/20 18:17 18:47 19:02 19:17 Temp 100.4 100.4 100.4 100.4 Pulse 68 63 63 61 Resp 14 B/P (MAP) 117/71 (86) 119/74 (89) 117/76 (90) 121/77 (92) Pulse Ox 98 97 97 97 09/02/20 09/02/20 09/02/20 09/02/20 19:32 19:47 20:00 20:00 Temp 100.4 100.6 Pulse 61 60 62 Resp 21 B/P (MAP) 121/72 (88) 117/73 (88) Pulse Ox 97 97 99 O2 Delivery Mechanical Ventilator 09/02/20 09/02/20 09/02/20 09/02/20 20:00 20:00 20:00 20:02 Temp 100.6 Pulse 60 57 57 63 Resp B/P (MAP) 116/70 (85) Pulse Ox 96 98 98 98 FiO2 90 90 09/02/20 09/02/20 09/02/20 09/02/20 20:17 20:32 20:47 21:02 Temp 100.6 100.6 100.6 100.6 Pulse 59 59 60 59 Resp B/P (MAP) 120/72 (88) 116/71 (86) 117/71 (86) 117/73 (88) Pulse Ox 98 98 98 98 09/02/20 09/02/20 09/02/20 09/02/20 21:17 21:32 21:47 22:02 Temp 100.8 100.8 100.8 100.8 Pulse 58 59 61 58 Resp 22 B/P (MAP) 122/73 (89) 117/69 (85) 116/72 (87) 117/72 (87) Pulse Ox 98 97 97 97 09/02/20 09/02/20 09/02/20 09/02/20 22:17 22:30 22:37 22:47 Temp 100.8 100.6 100.4 Pulse 55 68 81 60 Resp 22 B/P (MAP) 125/72 (89) 130/61 (84) 133/75 (94) Pulse Ox 98 96 75 97 FiO2 90 09/02/20 09/02/20 09/02/20 09/02/20 23:02 23:11 23:11 23:17 Temp 100.2 100.0 Pulse 65 68 63 Resp 22 B/P (MAP) 133/76 (95) 129/70 (89) Pulse Ox 100 96 100 O2 Delivery Mechanical Ventilator FiO2 90 09/02/20 09/02/20 09/03/20 09/03/20 23:32 23:47 00:02 00:17 Temp 100.0 100.0 100.0 100.0 Pulse 65 66 60 60 Resp B/P (MAP) 120/62 (81) 112/66 (81) 118/69 (85) 118/74 (89) Pulse Ox 100 100 99 100 09/03/20 09/03/20 09/03/20 09/03/20 00:32 00:47 01:00 01:02 Temp 100.0 99.9 99.9 Pulse 59 59 62 58 Resp B/P (MAP) 117/72 (87) 116/66 (83) 118/66 (83) Pulse Ox 100 100 99 100 FiO2 90 09/03/20 09/03/20 09/03/20 09/03/20 01:17 01:32 02:02 02:17 Temp 99.9 99.9 99.9 99.9 Pulse 60 58 58 57 Resp B/P (MAP) 116/69 (85) 114/65 (81) 111/65 (80) 113/65 (81) Pulse Ox 100 100 99 100 09/03/20 09/03/20 09/03/20 09/03/20 02:32 02:47 03:00 03:00 Temp 99.9 99.9 Pulse 58 61 59 Resp B/P (MAP) 114/67 (83) 109/65 (80) Pulse Ox 100 99 100 O2 Delivery Mechanical Ventilator FiO2 90 09/03/20 09/03/20 09/03/20 09/03/20 03:00 03:00 03:00 03:02 Temp 99.9 Pulse 59 59 68 59 Resp 32 32 32 37 B/P (MAP) 130/72 (91) Pulse Ox 98 98 99 100 FiO2 90 09/03/20 09/03/20 09/03/20 09/03/20 03:18 03:48 04:02 04:17 Temp 99.5 Pulse 81 91 87 90 Resp 29 36 24 29 B/P (MAP) 125/76 (92) 93/58 (70) 107/67 (80) 112/69 (83) Pulse Ox 99 93 100 95 09/03/20 09/03/20 09/03/20 09/03/20 04:32 04:47 05:02 05:17 Pulse 63 59 66 61 Resp 27 24 26 26 B/P (MAP) 117/69 (85) 116/68 (84) 110/63 (79) 110/66 (81) Pulse Ox 100 100 100 100 09/03/20 09/03/20 09/03/20 09/03/20 05:32 05:47 05:50 05:50 Pulse 63 67 68 Resp 24 25 49 25 B/P (MAP) 119/60 (79) 108/66 (80) Pulse Ox 100 99 90 99 FiO2 90 09/03/20 09/03/20 09/03/20 09/03/20 06:02 06:17 08:00 08:00 Pulse 65 71 53 Resp 26 27 22 B/P (MAP) 110/65 (80) 106/66 (79) Pulse Ox 100 100 100 O2 Delivery Mechanical Ventilator FiO2 70 09/03/20 09/03/20 09/03/20 09/03/20 08:06 08:06 08:07 08:17 Pulse 61 61 61 61 Resp 26 26 25 25 Pulse Ox 98 98 98 98 O2 Delivery Mechanical Ventilator FiO2 90 90 09/03/20 09/03/20 09/03/20 09/03/20 10:21 12:00 12:00 13:50 Pulse 75 53 75 Resp 36 22 22 Pulse Ox 99 100 99 O2 Delivery Mechanical Ventilator FiO2 80 70 80 09/03/20 09/03/20 09/03/20 09/03/20 15:24 15:24 15:35 16:00 Pulse 58 75 58 53 Resp 31 22 31 22 Pulse Ox 99 99 99 100 FiO2 80 70 09/03/20 09/03/20 09/03/20 09/03/20 16:00 16:17 16:30 16:32 Temp 99.7 99.7 99.7 Pulse 63 57 60 Resp 50 48 82 B/P (MAP) 141/77 (98) 144/82 (102) Pulse Ox 99 100 99 O2 Delivery Mechanical Ventilator 09/03/20 09/03/20 09/03/20 09/03/20 16:45 16:47 17:00 17:02 Temp 99.7 99.7 99.7 99.7 Pulse 57 55 56 54 Resp 49 42 28 37 B/P (MAP) 145/79 (101) 143/79 (100) Pulse Ox 100 100 100 100 09/03/20 09/03/20 09/03/20 09/03/20 17:15 17:17 17:30 17:32 Temp 99.7 99.7 99.7 99.7 Pulse 70 65 57 60 Resp 25 30 B/P (MAP) 128/65 (86) 129/66 (87) Pulse Ox 99 100 100 100 09/03/20 09/03/20 09/03/20 09/03/20 17:45 17:47 17:52 18:00 Temp 99.5 99.5 99.5 Pulse 54 54 53 53 Resp B/P (MAP) 123/67 (85) Pulse Ox 100 100 100 100 FiO2 80 09/03/20 09/03/20 09/03/20 09/03/20 18:02 18:06 18:15 18:17 Temp 99.5 99.5 99.7 99.7 Pulse 52 54 53 53 Resp 22 B/P (MAP) 129/67 (87) 126/66 (86) 128/68 (88) Pulse Ox 100 100 100 100 09/03/20 09/03/20 09/03/20 09/03/20 18:21 19:21 19:21 19:21 Temp 99.7 100.0 Pulse 53 52 52 Resp B/P (MAP) 130/72 (91) 131/74 (93) Pulse Ox 100 100 100 O2 Delivery Mechanical Ventilator FiO2 70 09/03/20 09/03/20 09/03/20 09/03/20 19:36 19:51 20:00 20:00 Temp 100.0 100.0 Pulse 53 64 59 64 Resp B/P (MAP) 126/72 (90) 125/68 (87) Pulse Ox 100 100 99 99 FiO2 70 09/03/20 09/03/20 09/03/20 09/03/20 20:00 20:00 20:06 20:21 Temp 99.9 100.0 Pulse 59 59 78 64 Resp B/P (MAP) 128/90 (103) 136/60 (85) Pulse Ox 99 99 99 100 O2 Delivery Mechanical Ventilator FiO2 70 09/03/20 09/03/20 09/03/20 09/03/20 20:36 20:51 21:06 21:15 Temp 99.9 99.9 99.7 99.7 Pulse 54 59 69 62 Resp B/P (MAP) 123/62 (82) 126/74 (91) 117/63 (81) Pulse Ox 100 99 98 100 09/03/20 09/03/20 09/03/20 09/03/20 21:21 21:30 21:36 21:51 Temp 99.7 99.7 99.7 99.9 Pulse 62 63 61 58 Resp 18 B/P (MAP) 123/69 (87) 126/72 (90) 128/75 (92) Pulse Ox 100 100 100 100 09/03/20 09/03/20 09/03/20 09/03/20 22:06 22:06 22:21 22:36 Temp 99.9 99.9 99.9 Pulse 57 59 56 57 Resp 23 B/P (MAP) 128/70 (89) 133/73 (93) 135/82 (99) Pulse Ox 100 100 100 100 FiO2 70 09/03/20 09/03/20 09/03/20 09/03/20 22:51 23:03 23:03 23:06 Temp 100.0 100.0 Pulse 57 60 62 Resp 13 B/P (MAP) 133/74 (93) 125/71 (89) Pulse Ox 100 100 100 O2 Delivery Mechanical Ventilator FiO2 70 09/03/20 09/03/20 09/03/20 09/04/20 23:21 23:37 23:51 00:06 Temp 100.2 100.2 100.2 100.0 Pulse 75 93 75 65 Resp 9 63 22 24 B/P (MAP) 116/63 (80) 152/119 (130) 129/69 (89) 136/70 (92) Pulse Ox 100 88 100 100 09/04/20 09/04/20 09/04/20 09/04/20 00:21 00:36 00:51 01:00 Temp 100.0 100.2 100.2 Pulse 80 61 56 55 Resp 35 24 23 22 B/P (MAP) 136/69 (91) 128/71 (90) 131/72 (91) Pulse Ox 99 98 99 100 FiO2 70 09/04/20 09/04/20 09/04/20 09/04/20 01:06 01:21 01:36 01:51 Temp 100.4 100.4 100.4 100.4 Pulse 58 56 56 58 Resp 22 22 B/P (MAP) 131/75 (93) 132/72 (92) 130/76 (94) 127/73 (91) Pulse Ox 100 100 100 100 09/04/20 09/04/20 09/04/20 09/04/20 02:06 02:21 02:30 02:30 Temp 100.6 100.6 Pulse 68 64 64 64 Resp 18 25 B/P (MAP) 120/68 (85) 122/67 (85) Pulse Ox 100 100 99 99 FiO2 70 09/04/20 09/04/20 09/04/20 09/04/20 02:30 02:36 02:51 03:06 Temp 100.6 100.8 100.8 Pulse 64 60 66 65 Resp 19 B/P (MAP) 123/67 (85) 122/69 (86) 120/66 (84) Pulse Ox 100 100 99 100 09/04/20 09/04/20 09/04/20 09/04/20 03:11 03:11 03:21 03:36 Temp 100.8 100.6 Pulse 65 64 63 Resp 29 B/P (MAP) 126/67 (86) 121/67 (85) Pulse Ox 100 100 99 O2 Delivery Mechanical Ventilator FiO2 70 09/04/20 09/04/20 09/04/20 09/04/20 03:51 04:06 04:21 04:36 Temp 100.4 100.4 100.4 100.4 Pulse 56 55 56 72 Resp 25 8 25 33 B/P (MAP) 128/67 (87) 126/74 (91) 123/69 (87) 113/67 (82) Pulse Ox 99 100 100 97 09/04/20 09/04/20 09/04/20 09/04/20 04:43 04:51 05:06 05:21 Temp 100.2 100.4 100.2 Pulse 60 77 82 68 Resp 25 38 39 32 B/P (MAP) 113/63 (80) 116/71 (86) 112/58 (76) Pulse Ox 100 93 93 92 FiO2 70 09/04/20 09/04/20 09/04/20 09/04/20 05:36 05:51 06:00 06:06 Temp 100.2 100.2 100.2 Pulse 59 58 57 59 Resp 24 23 23 B/P (MAP) 121/66 (84) 119/72 (88) 115/66 (82) Pulse Ox 96 97 97 98 FiO2 70 09/04/20 09/04/20 09/04/20 09/04/20 06:21 06:36 08:00 08:00 Temp 100.4 100.4 Pulse 69 74 53 Resp 27 22 B/P (MAP) 110/63 (79) 110/60 (77) Pulse Ox 98 98 100 O2 Delivery Mechanical Ventilator FiO2 70 09/04/20 09/04/20 09/04/20 09/04/20 08:11 08:11 08:11 08:11 Pulse 66 74 66 66 Resp 25 25 Pulse Ox 94 98 94 94 O2 Delivery Mechanical Ventilator FiO2 70 70 09/04/20 09/04/20 09/04/20 09/04/20 10:11 10:26 10:33 10:41 Temp 100.0 100.4 100.4 Pulse 75 71 78 70 Resp 24 26 B/P (MAP) 101/58 111/60 103/60 Pulse Ox 98 FiO2 80 09/04/20 09/04/20 09/04/20 09/04/20 11:01 11:31 12:00 12:00 Temp 100.3 100.3 Pulse 79 67 53 Resp 22 B/P (MAP) 111/60 109/59 Pulse Ox 100 O2 Delivery Mechanical Ventilator FiO2 80 09/04/20 09/04/20 09/04/20 09/04/20 13:06 13:15 13:21 13:30 Temp 100.4 100.4 100.4 100.2 Pulse 72 76 73 69 Resp 54 42 25 27 B/P (MAP) 121/70 (87) 115/64 (81) Pulse Ox 98 97 97 95 09/04/20 09/04/20 09/04/20 09/04/20 13:36 13:45 13:51 14:00 Temp 100.0 100.0 100.0 100.0 Pulse 68 75 66 71 Resp 30 36 35 48 B/P (MAP) 117/61 (79) 120/72 (88) Pulse Ox 95 95 93 95 09/04/20 09/04/20 09/04/20 09/04/20 14:06 14:09 14:09 14:09 Temp 100.0 Pulse 67 105 105 105 Resp 88 35 35 35 B/P (MAP) 124/60 (81) Pulse Ox 94 94 94 94 FiO2 80 09/04/20 09/04/20 09/04/20 09/04/20 14:15 14:21 14:30 14:36 Temp 100.0 100.0 100.0 99.9 Pulse 67 60 74 62 Resp 28 B/P (MAP) 117/68 (84) 127/70 (89) Pulse Ox 91 92 92 93 09/04/20 09/04/20 09/04/20 09/04/20 14:45 14:51 15:00 15:06 Temp 99.9 99.9 99.7 99.7 Pulse 63 60 68 64 Resp 22 96 22 22 B/P (MAP) 121/66 (84) 122/68 (86) Pulse Ox 96 98 99 100 09/04/20 09/04/20 09/04/20 09/04/20 15:15 15:21 15:36 15:45 Temp 99.7 99.7 99.5 99.5 Pulse 61 59 57 57 Resp 22 22 22 22 B/P (MAP) 122/69 (86) 118/72 (87) Pulse Ox 100 100 100 100 09/04/20 09/04/20 09/04/20 09/04/20 15:51 16:00 16:00 16:00 Temp 99.5 99.5 Pulse 56 53 58 Resp 23 B/P (MAP) 117/68 (84) Pulse Ox 100 100 100 O2 Delivery Mechanical Ventilator FiO2 80 09/04/20 09/04/20 09/04/20 09/04/20 16:06 16:15 16:21 16:30 Temp 99.3 99.3 99.3 99.5 Pulse 68 77 80 73 Resp 27 26 33 37 B/P (MAP) 136/75 (95) 131/67 (88) Pulse Ox 99 97 96 96 09/04/20 09/04/20 09/04/20 09/04/20 16:36 16:45 16:45 16:51 Temp 99.5 99.5 99.5 Pulse 73 74 80 69 Resp 38 22 B/P (MAP) 132/76 (94) 119/68 (85) Pulse Ox 95 96 95 96 FiO2 80 09/04/20 09/04/20 09/04/20 09/04/20 17:00 17:06 17:15 17:21 Temp 99.5 99.5 99.5 99.5 Pulse 65 66 61 63 Resp 22 B/P (MAP) 121/72 (88) 119/71 (87) Pulse Ox 96 97 98 98 09/04/20 09/04/20 09/04/20 09/04/20 17:30 17:36 17:45 17:51 Temp 99.5 99.3 99.3 99.3 Pulse 59 57 56 55 Resp 22 B/P (MAP) 115/68 (84) 116/71 (86) Pulse Ox 99 99 99 99 09/04/20 09/04/20 09/04/20 09/04/20 19:00 19:00 19:06 19:21 Temp 98.6 98.6 Pulse 50 50 52 Resp 22 B/P (MAP) 120/68 (85) 127/67 (87) Pulse Ox 100 98 98 O2 Delivery Mechanical Ventilator FiO2 80 09/04/20 09/04/20 09/04/20 09/04/20 19:36 19:51 20:00 20:00 Temp 98.6 98.6 Pulse 50 52 50 50 Resp 22 B/P (MAP) 120/75 (90) 115/65 (82) Pulse Ox 99 99 98 98 O2 Delivery Mechanical Ventilator FiO2 80 80 09/04/20 09/04/20 09/04/20 09/04/20 20:00 20:00 20:06 20:21 Temp 98.6 98.4 Pulse 50 50 53 51 Resp 22 B/P (MAP) 113/66 (82) 112/68 (83) Pulse Ox 98 98 98 98 09/04/20 09/04/20 09/04/20 09/04/20 20:36 20:51 21:06 21:21 Temp 98.4 98.2 98.2 98.1 Pulse 51 51 78 62 Resp 22 B/P (MAP) 110/63 (79) 109/66 (80) 112/71 (85) 105/60 (75) Pulse Ox 98 99 99 97 09/04/20 09/04/20 09/04/20 09/04/20 21:36 21:51 22:06 22:12 Temp 98.1 98.1 98.1 Pulse 68 63 61 54 Resp 22 B/P (MAP) 119/63 (81) 117/69 (85) 121/68 (85) Pulse Ox 96 92 92 99 FiO2 80 09/04/20 09/04/20 09/04/20 09/04/20 22:21 22:36 22:51 23:00 Temp 98.1 98.1 98.2 Pulse 62 63 60 60 Resp 22 23 B/P (MAP) 121/69 (86) 132/73 (92) 117/66 (83) Pulse Ox 92 97 97 100 FiO2 80 09/04/20 09/04/20 09/04/20 09/04/20 23:00 23:06 23:21 23:36 Temp 98.2 98.2 98.4 Pulse 59 57 57 Resp 22 B/P (MAP) 115/68 (84) 111/68 (82) 112/63 (79) Pulse Ox 97 98 98 O2 Delivery Mechanical Ventilator 09/04/20 09/05/20 09/05/20 09/05/20 23:51 00:06 00:21 00:36 Temp 98.4 98.2 98.2 98.2 Pulse 56 56 58 58 Resp 24 B/P (MAP) 107/64 (78) 111/66 (81) 111/62 (78) 108/61 (77) Pulse Ox 97 96 95 93 09/05/20 09/05/20 09/05/20 09/05/20 00:51 01:07 01:21 01:24 Temp 98.2 98.4 Pulse 57 81 99 84 Resp 22 B/P (MAP) 108/68 (81) 106/59 (75) 105/67 (80) Pulse Ox 92 95 82 95 FiO2 80 09/05/20 09/05/20 09/05/20 09/05/20 01:36 01:51 02:06 02:21 Temp 98.6 99.0 99.1 Pulse 83 89 88 84 Resp 22 B/P (MAP) 112/57 (75) 120/62 (81) 114/60 (78) 113/60 (77) Pulse Ox 93 92 92 91 09/05/20 09/05/20 09/05/20 09/05/20 02:36 02:51 03:00 03:00 Temp 99.3 99.5 Pulse 89 90 88 88 Resp 22 B/P (MAP) 117/62 (80) 122/57 (78) Pulse Ox 91 90 92 92 FiO2 80 09/05/20 09/05/20 09/05/20 09/05/20 03:00 03:00 03:00 03:06 Temp 99.7 Pulse 80 88 85 Resp 30 B/P (MAP) 130/71 (90) Pulse Ox 88 94 88 O2 Delivery Mechanical Ventilator FiO2 80 09/05/20 09/05/20 09/05/20 09/05/20 03:21 03:36 03:51 03:51 Temp 99.7 99.7 99.7 99.7 Pulse 87 108 87 87 Resp 22 B/P (MAP) 115/65 (82) 122/68 (86) 115/67 (83) 115/67 (83) Pulse Ox 91 93 93 93 09/05/20 09/05/20 09/05/20 09/05/20 04:06 04:21 04:36 04:51 Temp 99.9 100.0 100.2 98.2 Pulse 88 93 91 91 Resp 22 B/P (MAP) 116/64 (81) 117/62 (80) 116/67 (83) 121/68 (85) Pulse Ox 94 94 93 94 09/05/20 09/05/20 09/05/20 09/05/20 05:06 05:21 05:36 05:51 Temp 100.2 100.0 100.2 100.2 Pulse 90 98 98 89 Resp 22 22 22 22 B/P (MAP) 120/72 (88) 124/73 (90) 127/72 (90) 125/66 (85) Pulse Ox 95 95 95 95 09/05/20 09/05/20 09/05/20 09/05/20 06:06 06:21 06:31 06:36 Temp 100.4 100.4 100.0 Pulse 91 93 97 95 Resp 22 B/P (MAP) 128/68 (88) 123/71 (88) 125/69 (87) Pulse Ox 95 95 94 94 FiO2 80 09/05/20 09/05/20 09/05/20 09/05/20 06:51 07:00 07:06 07:15 Temp 100.4 100.4 100.4 100.4 Pulse 93 93 94 93 Resp 22 B/P (MAP) 116/70 (85) 128/69 (88) Pulse Ox 95 95 95 95 09/05/20 09/05/20 09/05/20 09/05/20 07:21 07:30 07:36 07:45 Temp 100.4 100.4 100.4 100.4 Pulse 91 92 95 95 Resp 23 B/P (MAP) 133/74 (93) 140/76 (97) Pulse Ox 95 95 95 94 09/05/20 09/05/20 09/05/20 09/05/20 07:51 08:00 08:00 08:06 Temp 100.6 100.6 100.6 Pulse 97 100 100 99 Resp 27 24 27 28 B/P (MAP) 135/70 (91) 128/74 (92) Pulse Ox 94 93 94 94 FiO2 80 09/05/20 09/05/20 09/05/20 09/05/20 08:15 08:21 08:30 08:36 Temp 100.8 100.8 100.8 100.8 Pulse 109 125 113 105 Resp 36 57 36 32 B/P (MAP) 161/82 (108) 136/66 (89) Pulse Ox 93 83 91 91 09/05/20 09/05/20 09/05/20 09/05/20 08:45 08:51 09:00 09:00 Temp 100.8 100.8 Pulse 107 107 96 107 Resp 34 37 24 37 B/P (MAP) 126/72 (90) Pulse Ox 91 91 94 94 O2 Delivery Mechanical Ventilator FiO2 80 09/05/20 09/05/20 09/05/20 09/05/20 09:00 09:00 09:19 09:45 Pulse 96 96 Resp 24 24 Pulse Ox 94 94 O2 Delivery Mechanical Ventilator FiO2 80 90 09/05/20 09/05/20 09/05/20 09/05/20 10:36 10:45 10:51 11:00 Temp 100.9 100.9 100.9 100.9 Pulse 104 105 104 105 Resp 25 29 31 30 B/P (MAP) 146/74 (98) 141/75 (97) Pulse Ox 92 93 93 94 09/05/20 09/05/20 09/05/20 09/05/20 11:06 11:15 11:21 11:30 Temp 100.9 100.9 100.9 101.1 Pulse 104 107 106 119 Resp 29 30 32 33 B/P (MAP) 139/76 (97) 143/73 (96) Pulse Ox 94 93 93 93 09/05/20 09/05/20 09/05/20 09/05/20 11:36 11:45 11:51 12:00 Temp 101.1 101.1 101.1 Pulse 127 118 116 Resp 38 34 25 B/P (MAP) 129/77 (94) 135/72 (93) Pulse Ox 93 92 93 O2 Delivery Mechanical Ventilator 09/05/20 09/05/20 09/05/20 09/05/20 12:00 12:06 12:14 12:15 Temp 101.1 Pulse 110 107 105 Resp 34 37 24 B/P (MAP) 156/97 (116) Pulse Ox 94 83 94 92 FiO2 90 09/05/20 09/05/20 09/05/20 09/05/20 12:21 12:30 12:30 12:36 Pulse 103 109 99 101 Resp 64 39 32 27 B/P (MAP) 134/78 (96) 131/73 (92) Pulse Ox 84 92 93 FiO2 90 09/05/20 09/05/20 09/05/20 09/05/20 12:45 12:51 13:00 13:06 Pulse 114 103 100 98 Resp 22 B/P (MAP) 133/75 (94) 131/73 (92) Pulse Ox 94 94 96 97 09/05/20 09/05/20 09/05/20 09/05/20 13:21 13:36 13:51 13:52 Pulse 93 95 95 107 Resp 22 B/P (MAP) 131/78 (95) 134/79 (97) 123/73 (90) Pulse Ox 97 97 98 97 FiO2 90 09/05/20 09/05/20 09/05/20 09/05/20 14:06 14:22 14:36 14:51 Temp 64.0 Pulse 88 76 75 Resp 25 B/P (MAP) 120/78 (92) 108/70 (83) 113/65 (81) 113/70 (84) Pulse Ox 97 85 93 94 09/05/20 09/05/20 09/05/20 09/05/20 15:00 15:06 15:06 15:15 Temp 99.7 99.7 99.7 99.5 Pulse 73 78 78 61 Resp 25 43 43 23 B/P (MAP) 113/74 (87) 113/74 (87) Pulse Ox 94 89 89 96 09/05/20 09/05/20 09/05/20 09/05/20 15:21 15:21 15:30 15:34 Temp 99.5 99.5 99.3 Pulse 59 59 60 67 Resp 22 22 22 23 B/P (MAP) 114/65 (81) 114/65 (81) Pulse Ox 97 97 98 94 09/05/20 09/05/20 09/05/20 09/05/20 15:35 15:36 15:36 15:45 Temp 99.3 99.3 Pulse 67 67 59 59 Resp 23 23 22 22 B/P (MAP) 114/70 (85) Pulse Ox 94 94 98 98 FiO2 90 09/05/20 09/05/20 09/05/20 09/05/20 15:51 16:00 16:00 16:06 Temp 99.3 99.3 99.3 Pulse 59 60 62 Resp 22 B/P (MAP) 115/70 (85) 120/75 (90) Pulse Ox 99 99 99 O2 Delivery Mechanical Ventilator 09/05/20 09/05/20 09/05/20 09/05/20 16:17 18:09 19:00 19:06 Temp 99.7 99.7 Pulse 99 67 64 65 Resp 22 B/P (MAP) 122/71 (88) Pulse Ox 92 89 93 93 FiO2 90 90 09/05/20 09/05/20 09/05/20 09/05/20 19:15 19:21 19:30 19:36 Temp 99.7 99.7 99.7 99.7 Pulse 66 66 65 64 Resp B/P (MAP) 119/71 (87) 120/63 (82) Pulse Ox 92 91 91 89 09/05/20 09/05/20 09/05/20 09/05/20 19:45 19:51 20:00 20:00 Temp 99.5 99.5 99.5 Pulse 63 62 60 Resp B/P (MAP) 119/74 (89) Pulse Ox 87 88 88 O2 Delivery Mechanical Ventilator 09/05/20 09/05/20 09/05/20 09/05/20 20:00 20:06 20:15 20:21 Temp 99.5 99.5 99.5 Pulse 59 57 57 59 Resp B/P (MAP) 124/70 (88) 119/67 (84) Pulse Ox 91 89 89 90 FiO2 90 09/05/20 09/05/20 09/05/20 09/05/20 20:21 20:36 20:51 21:00 Temp 99.5 99.5 99.5 Pulse 59 59 61 63 Resp 22 B/P (MAP) 119/67 (84) 118/69 (85) 115/71 (86) Pulse Ox 90 92 92 92 FiO2 90 09/05/20 09/05/20 09/05/20 09/05/20 21:00 21:00 21:00 21:06 Temp 99.5 Pulse 63 63 66 61 Resp B/P (MAP) 117/70 (86) Pulse Ox 92 92 90 92 O2 Delivery Mechanical Ventilator FiO2 90 09/05/20 09/05/20 09/05/20 09/05/20 21:21 21:36 21:51 22:06 Temp 99.5 99.5 99.3 99.3 Pulse 59 69 66 70 Resp 22 B/P (MAP) 115/64 (81) 108/58 (75) 112/59 (76) 107/60 (76) Pulse Ox 92 90 91 89 09/05/20 09/05/20 09/05/20 09/05/20 22:21 22:36 22:51 23:06 Temp 99.3 99.1 99.1 99.1 Pulse 67 69 66 66 Resp 23 B/P (MAP) 109/57 (74) 113/67 (82) 109/62 (78) 105/60 (75) Pulse Ox 88 86 91 91 09/05/20 09/05/20 09/05/20 09/06/20 23:21 23:36 23:51 00:00 Temp 99.1 99.1 99.1 Pulse 63 60 60 59 Resp 22 B/P (MAP) 105/63 (77) 107/64 (78) 110/63 (79) Pulse Ox 92 92 92 91 FiO2 90 09/06/20 09/06/20 09/06/20 09/06/20 00:00 00:06 00:21 00:21 Temp 99.1 99.1 99.1 Pulse 58 59 59 Resp 23 B/P (MAP) 113/70 (84) 114/69 (84) 114/69 (84) Pulse Ox 92 90 90 O2 Delivery Mechanical Ventilator 09/06/20 09/06/20 09/06/20 09/06/20 00:36 00:51 01:06 01:20 Temp 99.1 99.1 99.1 Pulse 60 58 59 58 Resp 22 B/P (MAP) 115/67 (83) 114/64 (81) 111/65 (80) Pulse Ox 89 90 91 91 FiO2 90 09/06/20 09/06/20 09/06/20 09/06/20 01:21 01:36 01:51 02:06 Temp 99.3 99.3 99.3 99.3 Pulse 62 59 59 59 Resp 22 B/P (MAP) 107/61 (76) 108/57 (74) 108/65 (79) 105/61 (76) Pulse Ox 90 91 91 91 09/06/20 09/06/20 09/06/20 09/06/20 02:21 02:36 02:51 03:00 Temp 99.3 99.3 99.3 Pulse 60 59 59 56 Resp 22 22 10 22 B/P (MAP) 109/59 (76) Pulse Ox 90 89 89 90 09/06/20 09/06/20 09/06/20 09/06/20 03:00 03:06 04:00 04:00 Temp 99.3 Pulse 57 68 60 Resp 22 23 22 Pulse Ox 90 78 90 O2 Delivery Mechanical Ventilator FiO2 90 09/06/20 09/06/20 09/06/20 09/06/20 04:48 07:00 07:30 08:00 Temp 98.4 98.6 98.8 Pulse 56 53 56 72 Resp 22 22 B/P (MAP) 116/66 (83) 115/65 (82) 101/58 (72) Pulse Ox 90 91 91 74 FiO2 90 09/06/20 09/06/20 09/06/20 09/06/20 08:00 08:00 08:14 08:15 Temp 99.0 99.0 Pulse 60 95 84 Resp 22 28 18 B/P (MAP) 126/70 (88) Pulse Ox 90 79 85 O2 Delivery Mechanical Ventilator FiO2 100 09/06/20 09/06/20 09/06/20 09/06/20 08:30 09:00 09:15 09:21 Temp 99.3 100.2 100.4 Pulse 86 91 55 Resp 22 32 22 B/P (MAP) 134/62 (86) 135/62 (86) 144/68 (93) Pulse Ox 83 84 73 91 09/06/20 09/06/20 09/06/20 09/06/20 09:25 09:31 09:32 09:47 Pulse 55 55 55 55 Resp 22 22 22 22 Pulse Ox 91 91 91 91 O2 Delivery Mechanical Ventilator FiO2 90 100 09/06/20 09/06/20 09/06/20 09/06/20 10:00 10:01 10:14 10:15 Pulse 84 78 78 78 Resp 22 21 22 22 B/P (MAP) 93/51 (65) 88/49 (62) 103/54 (70) Pulse Ox 88 88 91 91 09/06/20 09/06/20 09/06/20 09/06/20 10:29 10:30 11:00 11:15 Pulse 80 80 83 80 Resp 22 B/P (MAP) 112/59 (76) 126/68 (87) Pulse Ox 93 93 95 95 09/06/20 09/06/20 09/06/20 09/06/20 11:21 11:30 12:00 12:00 Pulse 87 84 60 Resp 22 B/P (MAP) 126/67 (86) Pulse Ox 95 96 90 O2 Delivery Mechanical Ventilator FiO2 100 100 09/06/20 09/06/20 09/06/20 09/06/20 12:00 12:30 12:45 12:59 Temp 101.3 101.1 Pulse 87 73 77 77 Resp 22 B/P (MAP) 102/54 (70) 94/53 (67) 97/57 (70) Pulse Ox 97 96 96 96 09/06/20 09/06/20 09/06/20 09/06/20 13:00 13:14 13:15 13:29 Temp 101.1 100.9 100.9 100.8 Pulse 76 70 70 69 Resp 23 B/P (MAP) 99/59 (72) 99/58 (72) Pulse Ox 97 97 98 98 09/06/20 09/06/20 09/06/20 09/06/20 13:30 14:00 15:41 15:42 Temp 100.8 100.6 Pulse 67 64 61 61 Resp 22 B/P (MAP) 125/66 (85) Pulse Ox 99 99 99 99 FiO2 100 09/06/20 09/06/20 09/06/20 09/06/20 15:44 15:44 16:00 19:00 Temp 99.5 Pulse 61 61 60 53 Resp 22 Pulse Ox 99 99 90 100 O2 Delivery Mechanical Ventilator FiO2 100 100 09/06/20 09/06/20 09/06/20 09/06/20 19:14 19:15 19:30 19:30 Temp 99.3 99.3 Pulse 61 63 69 67 Resp 22 B/P (MAP) 111/59 (76) Pulse Ox 98 100 99 97 FiO2 100 09/06/20 09/06/20 09/06/20 09/06/20 19:30 19:30 19:44 19:45 Temp 99.3 99.5 99.5 Pulse 69 67 67 69 Resp 27 B/P (MAP) 102/47 (65) 104/59 (74) Pulse Ox 99 97 98 99 09/06/20 09/06/20 09/06/20 09/06/20 19:59 20:00 20:00 20:00 Temp 99.7 99.7 Pulse 86 60 80 Resp 22 22 22 B/P (MAP) 107/62 (77) Pulse Ox 88 90 95 O2 Delivery Mechanical Ventilator FiO2 100 09/06/20 09/06/20 09/06/20 09/06/20 20:14 20:15 21:59 22:00 Temp 99.7 99.7 99.5 99.5 Pulse 70 71 56 57 Resp 22 B/P (MAP) 114/61 (78) 99/55 (70) Pulse Ox 100 100 100 100 09/06/20 09/06/20 09/06/20 09/06/20 22:14 22:15 22:29 22:30 Temp 99.3 99.3 99.3 99.3 Pulse 56 56 54 53 Resp 22 22 18 22 B/P (MAP) 104/51 (68) 100/57 (71) Pulse Ox 100 100 100 100 09/06/20 09/06/20 09/06/20 09/06/20 22:44 22:45 22:59 23:00 Temp 99.3 99.3 99.3 99.3 Pulse 54 52 52 52 Resp 19 22 20 22 B/P (MAP) 101/56 (71) 104/58 (73) Pulse Ox 100 100 100 100 09/06/20 09/06/20 09/06/20 09/06/20 23:01 23:14 23:15 23:29 Temp 99.3 99.3 99.3 Pulse 55 52 52 54 Resp 22 19 18 23 B/P (MAP) 103/56 (72) 117/67 (84) Pulse Ox 100 100 100 100 FiO2 100 11/26/20 11/26/20 11/26/20 11/27/20 23:30 23:45 23:59 00:00 Temp 99.3 99.3 99.3 Pulse 54 61 66 Resp B/P (MAP) 101/54 (70) 110/55 (73) Pulse Ox 100 100 100 O2 Delivery Mechanical Ventilator 09/07/20 09/07/20 09/07/20 09/07/20 00:00 00:00 00:14 00:15 Temp 99.3 99.5 99.5 Pulse 60 65 59 61 Resp 22 B/P (MAP) 104/55 (71) Pulse Ox 90 100 100 100 FiO2 100 09/07/20 09/07/20 09/07/20 09/07/20 01:45 01:58 02:00 02:09 Temp 99.5 99.5 Pulse 79 79 56 Resp B/P (MAP) 139/73 (95) Pulse Ox 100 90 100 FiO2 100 09/07/20 09/07/20 09/07/20 09/07/20 02:13 02:15 02:28 02:30 Temp 99.5 99.5 99.5 99.5 Pulse 83 82 73 70 Resp B/P (MAP) 131/64 (86) 123/64 (83) Pulse Ox 92 92 94 94 09/07/20 09/07/20 09/07/20 09/07/20 02:43 02:45 02:53 02:58 Temp 99.5 99.5 99.7 Pulse 73 70 69 Resp B/P (MAP) 114/68 (83) 116/65 (82) Pulse Ox 95 95 93 94 09/07/20 09/07/20 09/07/20 09/07/20 03:00 03:14 03:15 03:29 Temp 99.7 99.7 99.7 99.7 Pulse 70 64 66 75 Resp Pulse Ox 94 94 94 92 09/07/20 09/07/20 09/07/20 09/07/20 03:30 03:43 03:45 03:58 Temp 99.7 99.7 99.7 99.7 Pulse 74 74 74 83 Resp 22 B/P (MAP) 114/63 (80) 100/61 (74) Pulse Ox 93 93 92 96 11/2709/07/20 09/07/20 09/07/20 04:00 04:00 04:00 05:04 Temp 99.7 Pulse 76 60 71 Resp 22 22 22 Pulse Ox 96 90 92 O2 Delivery Mechanical Ventilator FiO2 100 09/07/20 09/07/20 09/07/20 09/07/20 05:04 05:04 07:00 07:13 Temp 100.0 100.0 Pulse 73 71 63 62 Resp 22 22 22 22 B/P (MAP) 100/59 (73) Pulse Ox 97 92 98 98 FiO2 100 09/07/20 09/07/20 09/07/20 09/07/20 07:15 07:28 07:28 07:43 Temp 100.0 100.0 100.0 100.0 Pulse 63 61 61 61 Resp 23 B/P (MAP) 107/67 (80) 107/67 (80) 101/62 (75) Pulse Ox 98 97 97 99 09/07/20 09/07/20 09/07/20 09/07/20 07:58 08:00 08:13 08:28 Temp 100.2 100.2 100.2 Pulse 67 24 89 102 Resp 20 29 B/P (MAP) 102/57 (72) 109/63 (78) 132/69 (90) Pulse Ox 98 92 97 79 FiO2 100 09/07/20 09/07/20 09/07/20 09/07/20 08:43 08:45 08:45 08:45 Pulse 91 86 86 86 Resp 22 29 29 29 B/P (MAP) 117/63 (81) Pulse Ox 91 100 97 97 FiO2 100 09/07/20 09/07/20 09/07/20 09/07/20 08:45 08:58 09:13 09:28 Pulse 86 87 85 85 Resp 29 32 22 22 B/P (MAP) 108/64 (79) 110/58 (75) 97/54 (68) Pulse Ox 97 94 97 97 O2 Delivery Mechanical Ventilator FiO2 100 09/07/20 09/07/20 09/07/20 09/07/20 09:30 09:43 09:44 09:45 Pulse 81 85 86 Resp 22 22 22 B/P (MAP) 105/54 (71) Pulse Ox 97 97 97 O2 Delivery Mechanical Ventilator 11/27/20 09/07/20 09/07/20 09/07/20 09:58 10:00 10:13 10:15 Pulse 86 89 91 92 Resp B/P (MAP) 101/49 (66) 115/53 (73) Pulse Ox 98 97 98 98 09/07/20 09/07/20 09/07/20 09/07/20 10:29 10:30 10:35 10:43 Pulse 86 85 83 79 Resp B/P (MAP) 99/45 (63) 92/40 (57) Pulse Ox 93 93 93 92 09/07/20 09/07/20 09/07/20 09/07/20 10:45 10:59 11:00 11:13 Temp 100.4 100.4 Pulse 79 71 77 Resp B/P (MAP) 121/53 (75) 108/60 (76) Pulse Ox 93 90 90 92 09/07/20 09/07/20 09/07/20 09/07/20 11:15 11:28 11:43 11:45 Temp 100.4 100.4 100.4 100.4 Pulse 78 76 65 66 Resp B/P (MAP) 107/56 (73) 104/59 (74) Pulse Ox 92 92 94 94 09/07/20 09/07/20 09/07/20 09/07/20 11:58 12:00 12:10 12:12 Temp 100.4 100.4 Pulse 62 61 61 Resp B/P (MAP) 105/59 (74) Pulse Ox 95 96 96 O2 Delivery Mechanical Ventilator FiO2 100 09/07/20 09/07/20 09/07/20 09/07/20 12:13 12:15 12:28 12:30 Temp 100.4 100.4 100.2 100.2 Pulse 60 59 61 61 Resp 22 B/P (MAP) 104/62 (76) 107/62 (77) Pulse Ox 97 97 97 97 09/07/20 09/07/20 09/07/20 09/07/20 12:43 12:45 12:58 13:00 Temp 100.2 100.2 100.2 100.2 Pulse 58 58 56 56 Resp 22 B/P (MAP) 108/59 (75) 107/64 (78) Pulse Ox 98 98 99 99 09/07/20 09/07/20 09/07/20 09/07/20 13:13 13:15 13:24 13:28 Temp 100.0 100.0 100.0 Pulse 57 56 66 58 Resp B/P (MAP) 103/62 (76) 104/63 (77) Pulse Ox 98 98 93 97 FiO2 100 09/07/20 09/07/20 09/07/20 09/07/20 13:30 13:43 13:45 13:58 Temp 100.0 100.0 100.0 99.9 Pulse 57 56 58 56 Resp B/P (MAP) 107/62 (77) 107/62 (77) Pulse Ox 98 98 98 98 09/07/20 09/07/20 09/07/20 09/07/20 14:00 14:13 14:15 14:28 Temp 99.9 99.9 99.9 99.9 Pulse 56 55 55 55 Resp B/P (MAP) 104/64 (77) 104/61 (75) Pulse Ox 98 98 97 97 09/07/20 09/07/20 09/07/20 09/07/20 14:30 14:45 14:59 15:00 Temp 99.9 99.7 99.7 99.7 Pulse 55 55 54 55 Resp B/P (MAP) 102/64 (77) Pulse Ox 97 97 97 97 09/07/20 09/07/20 09/07/20 09/07/20 15:15 15:29 15:30 15:45 Temp 99.7 99.7 99.7 99.5 Pulse 55 54 54 54 Resp B/P (MAP) 108/64 (79) Pulse Ox 97 98 98 97 09/07/20 09/07/20 09/07/20 09/07/20 15:59 16:00 16:15 16:19 Temp 99.5 99.5 99.5 Pulse 53 55 53 55 Resp 23 B/P (MAP) 104/62 (76) Pulse Ox 97 97 97 97 09/07/20 09/07/20 09/07/20 09/07/20 16:19 16:19 16:29 16:30 Temp 99.3 99.3 Pulse 55 55 52 53 Resp B/P (MAP) 100/58 (72) Pulse Ox 97 97 96 97 FiO2 100 09/07/20 09/07/20 09/07/20 09/07/20 16:30 16:40 16:45 16:59 Temp 99.3 99.3 99.3 Pulse 53 55 55 52 Resp B/P (MAP) 106/61 (76) Pulse Ox 97 97 97 95 FiO2 100 09/07/20 09/07/20 09/07/20 09/07/20 17:00 17:15 17:29 17:30 Temp 99.3 99.1 99.1 99.1 Pulse 53 71 57 57 Resp B/P (MAP) 108/58 (75) Pulse Ox 94 85 96 97 09/07/20 09/07/20 09/07/20 09/07/20 17:37 17:45 17:59 18:00 Temp 99.1 99.1 99.1 Pulse 57 54 54 Resp B/P (MAP) 103/60 (74) Pulse Ox 98 97 98 O2 Delivery Mechanical Ventilator 09/07/20 09/07/20 09/07/20 09/07/20 19:00 19:15 19:29 19:30 Temp 99.0 99.0 99.0 99.0 Pulse 51 52 55 53 Resp B/P (MAP) 119/68 (85) Pulse Ox 98 98 96 95 09/07/20 09/07/20 09/07/20 09/07/20 19:45 20:00 20:00 20:00 Temp 99.0 99.0 Pulse 60 53 60 Resp Pulse Ox 93 95 90 O2 Delivery Mechanical Ventilator FiO2 100 09/07/20 09/07/20 09/07/20 09/07/20 20:15 20:15 20:23 20:29 Temp 99.0 99.0 99.0 Pulse 53 52 54 57 Resp B/P (MAP) 110/62 (78) 108/58 (75) Pulse Ox 95 95 98 99 O2 Delivery Mechanical Ventilator FiO2 100 09/07/20 09/07/20 09/07/20 09/07/20 20:30 20:59 21:02 21:02 Temp 99.0 Pulse 58 52 56 52 Resp 22 Pulse Ox 99 95 95 95 FiO2 100 09/07/20 09/07/20 09/07/20 09/07/20 22:30 22:45 22:59 23:00 Temp 99.0 99.1 99.1 99.1 Pulse 56 57 57 55 Resp 23 B/P (MAP) 113/60 (77) Pulse Ox 96 97 97 97 09/07/20 09/07/20 09/07/20 09/07/20 23:15 23:29 23:30 23:45 Temp 99.1 99.1 99.1 99.3 Pulse 58 57 57 58 Resp B/P (MAP) 119/65 (83) Pulse Ox 97 96 96 97 09/07/20 09/07/20 09/08/20 09/08/20 23:58 23:59 00:00 00:00 Temp 99.3 99.3 Pulse 61 60 59 Resp B/P (MAP) 113/61 (78) Pulse Ox 96 97 97 O2 Delivery Mechanical Ventilator FiO2 100 09/08/20 09/08/20 09/08/20 09/08/20 00:00 00:15 00:29 00:30 Temp 99.3 99.3 99.3 Pulse 60 62 68 63 Resp B/P (MAP) 128/65 (86) Pulse Ox 90 97 97 96 FiO2 100 09/08/20 09/08/20 09/08/20 09/08/20 00:45 00:59 01:00 01:15 Temp 99.3 99.5 99.5 99.7 Pulse 68 75 74 70 Resp 24 B/P (MAP) 133/70 (91) Pulse Ox 97 99 99 97 09/08/20 09/08/20 09/08/20 09/08/20 01:29 01:30 02:00 02:15 Temp 99.7 99.7 99.9 99.9 Pulse 68 70 65 60 Resp 17 B/P (MAP) 117/62 (80) Pulse Ox 95 97 94 95 09/08/20 09/08/20 09/08/20 09/08/20 02:30 02:45 03:00 03:13 Temp 99.9 99.7 99.0 99.9 Pulse 63 58 Resp 56 23 B/P (MAP) 147/68 (94) Pulse Ox 94 96 97 93 09/08/20 09/08/20 09/08/20 09/08/20 03:15 03:20 03:30 03:43 Temp 99.9 99.9 99.7 Pulse 82 61 83 74 Resp 22 B/P (MAP) 142/78 (99) Pulse Ox 98 96 93 92 09/08/20 09/08/20 09/08/20 09/08/20 03:45 03:45 04:00 04:00 Temp 99.7 99.7 Pulse 63 78 66 60 Resp 22 Pulse Ox 97 92 97 90 FiO2 100 09/08/20 09/08/20 09/08/20 09/08/20 04:00 04:13 04:15 04:30 Temp 99.9 99.9 99.7 Pulse 56 57 54 Resp 22 B/P (MAP) 131/75 (93) Pulse Ox 97 98 99 O2 Delivery Mechanical Ventilator 09/08/20 09/08/20 09/08/20 09/08/20 04:42 04:45 04:57 05:00 Temp 99.9 99.9 99.9 Pulse 53 52 62 53 Resp 22 B/P (MAP) 124/75 (91) Pulse Ox 99 99 97 99 FiO2 100 09/08/20 09/08/20 09/08/20 09/08/20 05:12 05:15 07:00 07:12 Temp 99.9 99.9 99.9 99.9 Pulse 54 54 58 59 Resp 22 B/P (MAP) 119/75 (90) 126/73 (90) Pulse Ox 100 100 98 98 09/08/20 09/08/20 09/08/20 09/08/20 07:30 07:30 07:42 07:45 Temp 100.0 100.0 100.0 Pulse 60 58 63 60 Resp 23 B/P (MAP) 125/69 (87) Pulse Ox 99 98 99 99 FiO2 100 09/08/20 09/08/20 09/08/20 09/08/20 08:00 08:00 08:12 08:15 Temp 100.0 100.0 100.0 Pulse 65 63 67 Resp 26 23 25 B/P (MAP) 131/71 (91) Pulse Ox 98 98 99 O2 Delivery Mechanical Ventilator 09/08/20 09/08/20 09/08/20 09/08/20 08:30 08:42 08:45 08:46 Temp 100.0 100.2 100.2 Pulse 86 68 68 59 Resp 30 29 23 B/P (MAP) 139/86 (103) Pulse Ox 95 95 95 98 09/08/20 09/08/20 09/08/20 09/08/20 08:47 08:48 08:49 09:00 Temp 100.2 Pulse 59 59 59 70 Resp 23 23 23 28 Pulse Ox 98 98 98 93 O2 Delivery Mechanical Ventilator FiO2 100 100 09/08/20 09/08/20 09/08/20 09/08/20 09:12 09:15 09:30 09:42 Temp 100.2 100.2 100.4 100.4 Pulse 65 74 81 86 Resp 29 32 31 34 B/P (MAP) 136/74 (94) 137/66 (89) Pulse Ox 93 94 94 92 09/08/20 09/08/20 09/08/20 09/08/20 09:45 10:00 10:12 10:15 Temp 100.4 100.6 100.6 100.6 Pulse 90 76 77 77 Resp 34 36 33 38 B/P (MAP) 124/60 (81) Pulse Ox 92 92 93 92 09/08/20 09/08/20 09/08/20 09/08/20 10:30 10:42 10:42 10:45 Temp 100.6 100.6 100.6 100.6 Pulse 81 73 73 66 Resp 34 22 22 22 B/P (MAP) 123/67 (85) 123/67 (85) Pulse Ox 93 96 96 96 09/08/20 09/08/20 09/08/20 09/08/20 10:57 11:12 11:32 11:42 Temp 100.4 100.4 100.4 100.4 Pulse 60 61 73 68 Resp 22 22 22 23 B/P (MAP) 120/65 (83) 124/63 (83) Pulse Ox 97 98 89 89 09/08/20 09/08/20 09/08/20 09/08/20 11:43 11:44 11:57 12:01 Temp 100.4 100.4 Pulse 70 65 59 Resp B/P (MAP) 124/64 (84) 124/64 Pulse Ox 90 89 90 FiO2 100 09/08/20 09/08/20 09/08/20 09/08/20 12:01 12:09 12:12 12:42 Temp 100.4 100.4 Pulse 75 52 59 Resp B/P (MAP) 138/75 (96) Pulse Ox 93 91 90 O2 Delivery Mechanical Ventilator FiO2 100 09/08/20 09/08/20 09/08/20 09/08/20 12:43 13:12 13:42 14:12 Temp 100.4 100.4 100.4 100.2 Pulse 58 57 58 52 Resp B/P (MAP) 120/66 (84) 113/68 (83) 126/72 (90) 135/75 (95) Pulse Ox 93 93 93 95 09/08/20 09/08/20 09/08/20 09/08/20 14:42 14:43 14:43 15:13 Temp 100.0 100.0 100.0 99.9 Pulse 58 57 57 55 Resp B/P (MAP) 129/62 (84) 129/62 (84) 118/67 (84) Pulse Ox 97 97 93 09/08/20 09/08/20 09/08/20 09/08/20 15:14 15:16 15:16 15:43 Temp 99.9 Pulse 56 56 56 53 Resp B/P (MAP) 122/65 (84) Pulse Ox 93 93 93 91 FiO2 100 09/08/20 09/08/20 09/08/20 09/08/20 16:05 16:12 16:25 16:43 Temp 99.7 99.7 Pulse 51 50 51 Resp B/P (MAP) 129/72 (91) 129/65 (86) Pulse Ox 93 92 94 O2 Delivery Mechanical Ventilator FiO2 100 09/08/20 09/08/20 09/08/20 09/08/20 17:13 17:43 17:43 17:58 Temp 99.5 99.3 99.3 99.3 Pulse 50 51 51 52 Resp B/P (MAP) 128/67 (87) 117/65 (82) 117/65 (82) Pulse Ox 93 93 93 92 09/08/20 09/08/20 09/08/20 09/08/20 18:12 18:13 18:28 18:42 Temp 99.1 99.1 99.1 99.0 Pulse 51 51 51 51 Resp 22 B/P (MAP) 115/63 (80) 113/64 (80) Pulse Ox 91 91 92 90 09/08/20 09/08/20 09/08/20 09/08/20 18:43 20:00 20:00 20:57 Temp 99.0 Pulse 51 60 48 Resp Pulse Ox 91 90 99 O2 Delivery Mechanical Ventilator FiO2 100 100 09/08/20 09/08/20 09/08/20 09/08/20 20:58 20:59 20:59 22:15 Temp 98.2 Pulse 48 50 48 50 Resp 23 Pulse Ox 99 99 99 99 O2 Delivery Mechanical Ventilator FiO2 100 09/08/20 09/08/20 09/08/20 09/08/20 22:30 22:42 22:45 23:00 Temp 98.2 98.2 98.2 98.4 Pulse 58 59 58 56 Resp B/P (MAP) 113/55 (74) Pulse Ox 99 100 99 98 09/08/20 09/08/20 09/08/20 09/08/20 23:12 23:15 23:30 23:38 Temp 98.4 98.6 98.6 Pulse 60 64 71 68 Resp B/P (MAP) 118/56 (76) Pulse Ox 98 98 99 100 FiO2 100 09/08/20 09/08/20 09/09/20 09/09/20 23:42 23:45 00:00 00:00 Temp 98.8 98.8 99.0 Pulse 77 71 75 Resp 22 B/P (MAP) 126/64 (84) Pulse Ox 98 98 98 O2 Delivery Mechanical Ventilator 09/09/20 09/09/20 09/09/20 09/09/20 00:00 00:13 00:15 00:30 Temp 99.0 99.0 99.1 Pulse 60 76 73 71 Resp 22 B/P (MAP) 128/62 (84) Pulse Ox 90 99 98 98 FiO2 100 09/09/20 09/09/20 09/09/20 09/09/20 00:43 00:45 01:00 01:12 Temp 99.1 99.1 99.3 99.3 Pulse 73 69 70 70 Resp 22 B/P (MAP) 122/52 (75) 120/57 (78) Pulse Ox 99 99 98 98 09/09/20 09/09/20 09/09/20 09/09/20 01:15 01:43 01:45 02:00 Temp 99.3 99.5 99.5 99.7 Pulse 69 66 66 59 Resp 21 B/P (MAP) 116/56 (76) Pulse Ox 97 97 96 97 09/09/20 09/09/20 09/09/20 09/09/20 02:12 02:15 02:30 02:42 Temp 99.7 99.7 99.9 99.9 Pulse 63 65 71 62 Resp 23 38 22 B/P (MAP) 116/56 (76) 107/50 (69) Pulse Ox 98 98 94 99 09/09/20 09/09/20 09/09/20 09/09/20 02:45 03:00 03:15 03:30 Temp 99.9 100.0 Pulse 62 57 Resp Pulse Ox 98 99 99 94 09/09/20 09/09/20 09/09/20 09/09/20 03:37 03:45 04:00 04:00 Temp 100.0 100.0 99.9 Pulse 74 75 75 60 Resp B/P (MAP) 158/70 (99) Pulse Ox 89 94 95 90 FiO2 100 09/09/20 09/09/20 09/09/20 09/09/20 04:00 04:00 04:00 04:00 Pulse 67 68 67 Resp Pulse Ox 97 99 97 O2 Delivery Mechanical Ventilator FiO2 100 09/09/20 09/09/20 09/09/20 09/09/20 04:07 04:15 04:30 04:37 Temp 99.9 99.9 99.9 99.9 Pulse 76 70 74 74 Resp 22 B/P (MAP) 143/72 (95) 130/64 (86) Pulse Ox 95 95 95 96 09/09/20 09/09/20 09/09/20 09/09/20 04:45 05:00 05:07 05:15 Temp 99.9 99.9 99.9 99.9 Pulse 72 63 70 76 Resp 24 B/P (MAP) 128/72 (90) Pulse Ox 95 96 94 96 09/09/20 09/09/20 09/09/20 09/09/20 05:30 05:35 05:37 05:45 Temp 99.9 99.9 99.9 Pulse 92 92 91 Resp B/P (MAP) 151/75 (100) Pulse Ox 95 99 95 93 09/09/20 09/09/20 09/09/20 09/09/20 06:00 06:07 06:15 06:30 Temp 100.0 100.0 100.2 100.4 Pulse 86 91 96 93 Resp B/P (MAP) 148/77 (100) Pulse Ox 92 91 94 93 09/09/20 09/09/20 09/09/20 09/09/20 07:00 07:07 07:15 07:30 Temp 100.6 100.8 100.8 100.8 Pulse 97 95 94 102 Resp B/P (MAP) 157/64 (95) Pulse Ox 94 94 94 93 09/09/20 09/09/20 09/09/20 09/09/20 08:00 08:00 08:07 08:15 Temp 100.9 100.9 100.9 Pulse 101 60 97 97 Resp B/P (MAP) 127/65 (85) Pulse Ox 91 90 92 91 FiO2 100 09/09/20 09/09/20 09/09/20 09/09/20 08:30 08:38 08:50 08:50 Temp 100.9 Pulse 92 60 94 Resp 32 33 33 Pulse Ox 93 93 93 O2 Delivery Mechanical Ventilator FiO2 100 09/09/20 09/09/20 09/09/20 09/09/20 08:50 08:50 09:00 09:07 Temp 100.9 100.9 Pulse 94 60 96 96 Resp 33 33 32 34 B/P (MAP) 135/69 (91) Pulse Ox 93 93 93 92 FiO2 100 11/09/09/20 09/09/20 09/09/20 09:15 09:30 10:00 10:07 Temp 100.9 100.9 100.4 100.4 Pulse 97 94 74 73 Resp 32 22 22 22 B/P (MAP) 119/64 (82) Pulse Ox 94 87 93 93 09/09/20 09/09/20 09/09/20 09/09/20 10:15 10:30 11:00 11:07 Temp 100.2 100.4 100.4 100.6 Pulse 84 92 95 97 Resp 22 22 23 22 B/P (MAP) 148/76 (100) Pulse Ox 92 92 89 90 09/09/20 09/09/20 09/09/20 09/09/20 11:15 11:30 12:00 12:00 Temp 100.6 100.8 Pulse 98 100 60 Resp 24 30 22 Pulse Ox 90 90 90 O2 Delivery Mechanical Ventilator FiO2 100 09/09/20 09/09/20 09/09/20 09/09/20 12:00 12:07 12:15 12:29 Temp 100.8 100.8 100.8 Pulse 96 100 100 Resp 31 32 B/P (MAP) 143/72 (95) 136/73 Pulse Ox 91 91 88 09/09/20 09/09/20 09/09/20 09/09/20 12:30 13:00 13:07 13:10 Temp 100.8 100.4 100.4 Pulse 93 74 72 72 Resp 32 23 27 27 B/P (MAP) 144/83 (103) Pulse Ox 92 94 95 95 FiO2 100 09/09/20 09/09/20 09/09/20 09/09/20 13:15 13:30 14:00 14:07 Temp 100.4 100.4 100.2 100.2 Pulse 76 77 78 69 Resp 26 27 24 26 B/P (MAP) 117/74 (88) Pulse Ox 94 93 91 95 09/09/20 09/09/20 09/09/20 09/09/20 14:15 14:30 15:00 15:00 Temp 100.2 100.0 Pulse 74 66 66 90 Resp 27 23 28 28 Pulse Ox 96 96 96 96 09/09/20 09/09/20 09/09/20 09/09/20 15:00 15:07 15:15 15:30 Temp 99.7 99.9 99.9 Pulse 90 82 79 76 Resp 28 13 B/P (MAP) 152/82 (105) 138/82 (100) Pulse Ox 96 97 98 99 09/09/20 09/09/20 09/09/20 09/09/20 16:00 16:00 16:00 18:21 Pulse 63 60 63 Resp 22 22 22 Pulse Ox 94 90 94 O2 Delivery Mechanical Ventilator FiO2 100 100 100 09/09/20 09/09/20 09/09/20 09/09/20 19:00 19:07 19:15 19:30 Temp 99.1 99.1 99.1 99.0 Pulse 63 61 63 62 Resp 18 23 B/P (MAP) 142/76 (98) Pulse Ox 93 93 94 94 09/09/20 09/09/20 09/09/20 09/09/20 19:37 19:45 20:00 20:00 Temp 99.0 99.0 Pulse 63 62 61 Resp 23 B/P (MAP) 154/79 (104) Pulse Ox 93 92 92 O2 Delivery Mechanical Ventilator FiO2 100 09/09/20 09/09/20 09/09/20 09/09/20 20:00 20:00 20:07 20:15 Temp 99.0 98.8 98.8 Pulse 60 62 63 61 Resp 24 22 23 B/P (MAP) 144/77 (99) Pulse Ox 90 92 92 92 FiO2 100 09/09/20 09/09/20 09/09/20 09/09/20 20:30 20:37 20:45 21:00 Temp 98.6 98.6 98.6 98.4 Pulse 81 62 62 64 Resp 27 22 22 22 B/P (MAP) 133/69 (90) Pulse Ox 75 90 93 94 09/09/20 09/09/20 09/09/20 09/09/20 21:07 21:15 21:30 21:37 Temp 98.2 98.2 98.2 98.1 Pulse 64 63 62 60 Resp 22 22 22 22 B/P (MAP) 139/75 (96) 135/73 (93) Pulse Ox 94 94 94 94 09/09/20 09/09/20 09/09/20 09/09/20 21:45 22:57 22:57 22:58 Temp 98.1 Pulse 61 61 64 61 Resp 22 23 22 23 Pulse Ox 95 92 94 92 O2 Delivery Mechanical Ventilator FiO2 100 100 09/09/20 09/09/20 09/09/20 09/09/20 22:58 23:00 23:07 23:15 Temp 97.7 97.7 97.7 Pulse 64 55 55 56 Resp 22 22 22 22 B/P (MAP) 127/69 (88) Pulse Ox 94 93 95 95 09/09/20 09/09/20 09/09/20 09/10/20 23:30 23:37 23:45 00:00 Temp 97.7 97.7 97.5 97.5 Pulse 54 54 54 54 Resp 22 22 22 22 B/P (MAP) 136/73 (94) Pulse Ox 95 94 91 94 09/10/20 09/10/20 09/10/20 09/10/20 00:00 00:00 00:07 00:30 Temp 97.5 Pulse 60 56 55 Resp 22 22 22 B/P (MAP) 132/71 (91) Pulse Ox 90 93 94 O2 Delivery Mechanical Ventilator FiO2 100 100 09/10/20 09/10/20 09/10/20 09/10/20 02:15 02:30 02:37 02:45 Temp 97.2 97.2 97.2 97.2 Pulse 55 54 54 53 Resp 22 22 22 22 B/P (MAP) 128/68 (88) Pulse Ox 92 92 93 91 09/10/20 09/10/20 09/10/20 09/10/20 03:00 03:00 03:00 03:07 Temp 97.0 97.0 Pulse 55 53 55 62 Resp 22 22 22 22 B/P (MAP) 132/70 (90) Pulse Ox 92 92 94 91 09/10/20 09/10/20 09/10/20 09/10/20 03:15 03:30 03:32 03:37 Temp 97.0 97.0 97.0 Pulse 58 64 55 72 Resp 22 22 24 B/P (MAP) 133/66 (88) Pulse Ox 89 92 92 93 FiO2 100 09/10/20 09/10/20 09/10/20 09/10/20 03:45 04:00 04:00 04:07 Temp 97.2 97.2 97.3 Pulse 77 60 85 84 Resp 29 B/P (MAP) 130/67 (88) Pulse Ox 92 90 88 87 FiO2 100 09/10/20 09/10/20 09/10/20 09/10/20 04:15 04:30 04:37 04:45 Temp 97.5 97.7 97.9 97.9 Pulse 88 110 93 90 Resp 34 B/P (MAP) 135/69 (91) Pulse Ox 84 83 85 88 09/10/20 09/10/20 09/10/20 09/10/20 05:00 05:07 05:15 06:13 Temp 98.1 98.2 98.2 Pulse 88 87 89 69 Resp B/P (MAP) 136/66 (89) Pulse Ox 89 90 90 89 FiO2 100 09/10/20 09/10/20 09/10/20 09/10/20 06:17 07:00 07:07 07:10 Temp 99.1 99.3 99.3 Pulse 93 95 92 Resp B/P (MAP) 150/65 178/78 (111) Pulse Ox 90 89 89 09/10/20 09/10/20 09/10/20 09/10/20 07:20 07:30 07:37 07:40 Temp 99.5 99.7 99.9 100.0 Pulse 99 105 111 114 Resp B/P (MAP) 212/99 (136) Pulse Ox 89 88 87 86 09/10/20 09/10/20 09/10/20 09/10/20 07:50 07:50 07:58 08:00 Temp 100.4 100.4 100.6 Pulse 115 114 121 118 Resp 25 B/P (MAP) 132/65 (87) Pulse Ox 86 87 83 82 FiO2 100 09/10/20 09/10/20 09/10/20 09/10/20 08:09 08:10 08:20 08:20 Temp 100.8 100.9 100.9 Pulse 114 110 110 Resp B/P (MAP) 145/82 (103) Pulse Ox 70 89 89 09/10/20 09/10/20 09/10/20 09/10/20 08:35 08:37 08:40 08:46 Temp 101.3 101.3 101.3 Pulse 101 101 95 Resp 27 28 24 B/P (MAP) 66/39 (48) 66/40 (49) Pulse Ox 88 88 88 O2 Delivery Mechanical Ventilator 09/10/20 09/10/20 09/10/20 09/10/20 08:50 08:53 08:55 08:59 Temp 101.5 101.5 101.5 101.5 Pulse 95 92 90 87 Resp 8 22 B/P (MAP) 62/38 (46) 66/37 (47) 71/40 (50) 86/48 (61) Pulse Ox 89 89 92 85 09/10/20 09/10/20 09/10/20 09/10/20 09:00 09:03 09:07 09:08 Temp 101.5 101.5 101.5 Pulse 84 87 92 104 Resp 22 22 22 32 B/P (MAP) 96/55 (69) 108/57 (74) Pulse Ox 86 90 91 90 09/10/20 09/10/20 09/10/20 09/10/20 09:09 09:14 09:15 09:15 Temp 101.7 Pulse 104 104 104 99 Resp 32 32 32 22 Pulse Ox 90 90 90 92 O2 Delivery Mechanical Ventilator FiO2 100 09/10/20 09/10/20 09/10/20 09/10/20 09:30 09:38 09:45 09:45 Temp 101.7 101.7 101.8 101.8 Pulse 108 112 115 115 Resp 23 15 22 B/P (MAP) 136/74 (94) Pulse Ox 92 90 93 93 09/10/20 09/10/20 09/10/20 09/10/20 10:00 10:07 10:15 10:19 Temp 102.0 102.0 Pulse 116 113 107 113 Resp 27 B/P (MAP) 126/58 (80) 134/68 (90) Pulse Ox 91 90 74 68 09/10/20 09/10/20 09/10/20 09/10/20 10:21 10:30 10:37 10:45 Temp 101.7 Pulse 115 118 114 120 Resp 24 8 22 22 B/P (MAP) 130/64 (86) 111/59 (76) Pulse Ox 74 77 78 75 11/30/09/10/20 09/10/20 09/10/20 10:45 11:08 11:10 11:15 Pulse 120 119 119 116 Resp 22 B/P (MAP) 129/67 (87) Pulse Ox 75 79 80 81 09/10/20 09/10/20 09/10/20 09/10/20 11:30 11:37 11:45 12:00 Pulse 115 113 114 115 Resp B/P (MAP) 102/55 (71) Pulse Ox 81 81 80 81 09/10/20 09/10/20 09/10/20 09/10/20 12:07 12:15 12:18 12:30 Temp 101.4 Pulse 112 111 112 112 Resp B/P (MAP) 108/55 (72) 114/61 (78) Pulse Ox 81 81 81 81 FiO2 100 09/10/20 12:33 O2 Delivery Mechanical Ventilator Intake and Output 09/10/20 05:59 Intake Total 5104 ml Output Total 3100 ml Balance 2004 ml VTE VTE Risk Total Score: 2 VTE Risk Score VTE Risk: Score 0-1 = Low Risk (Aggressive mobilization; early ambulation; no VTE prophylaxis required) Score 2: Moderate Risk (Intermittent/Pneumatic Compression Device OR Lovenox/Heparin/Coumadin) Score 3-4: High Risk (Intermittent/Pneumatic Compression Device AND Lovenox/Heparin/Coumadin) Score > or =5: Highest Risk (Intermittent/Pneumatic Compression Device AND Lovenox/Heparin/Coumadin) Antico:Hep/LMWH/Coum/Xarelto: Yes VTE VTE Present on Admission: No Currently receiving anticoagul: Yes VTE Risk Total Score: 2 Antico:Hep/LMWH/Coum/Xarelto: Yes Assessment/Plan Assessment/Plan Assessment/Plan Severe hypoxemia this AM, worsening overall No pneumothorax on today's CXR, worsening opacities May not tolerate further changes prone/supine (clarissa SaO2 in 70% range during turn today) Continue maximal ventilator support, prone positioning as tolerated Lasix x1 given 0617 Continue full Anticoagulation for high risk PE or other life/limb threatening thrombosis Stress ulcer prophylaxis Empiric zosyn, vancomycin Tube feedings as feasible ET tube 7.5 cm above chuy increases extubation risk; advance 3 cm Recommend continued aggressive management but also recommended counseling family to change status to DNR to avoid suffering at end of life I am happy to take part in this discussion by telephone conferencing or by contacting family independently upon request CC time > 60 min spent reviewing patient w/ RN and hospitalist. Video assessment performed with HIPAA compliant technology. Problems: (1) Hypoxia Status: Acute ICD Code: R09.02 - Hypoxemia; J12.89 - Other viral pneumonia SNOMED: 943801167 (2) Dyspnea Status: Acute ICD Code: R06.00 - Dyspnea, unspecified SNOMED: 011655809 (3) Pneumonia Status: Acute ICD Code: J18.9 - Pneumonia, unspecified organism SNOMED: 941319367 (4) ARDS (adult respiratory distress syndrome) ICD Code: J80 - Acute respiratory distress syndrome SNOMED: 52312670, 66267801 (5) Pneumonia due to COVID-19 virus Status: Acute ICD Code: U07.1 - COVID-19; J12.89 - Other viral pneumonia SNOMED: 756087146553703776 (6) Diabetes mellitus ICD Code: E11.9 - Type 2 diabetes mellitus without complications SNOMED: 19101140 (7) SIRS (systemic inflammatory response syndrome) ICD Code: R65.10 - Systemic inflammatory response syndrome (SIRS) of non- infectious origin without acute organ dysfunction SNOMED: 332839347 Patient History: Unknown 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 Plan Severe hypoxemia this AM, worsening overall No pneumothorax on today's CXR, worsening opacities May not tolerate further changes prone/supine (clarissa SaO2 in 70% range during turn today) Continue maximal ventilator support, prone positioning as tolerated Lasix x1 given 0617 Continue full Anticoagulation for high risk PE or other life/limb threatening thrombosis Stress ulcer prophylaxis Empiric zosyn, vancomycin Tube feedings as feasible ET tube 7.5 cm above chuy increases extubation risk; advance 3 cm Recommend continued aggressive management but also recommended counseling family to change status to DNR to avoid suffering at end of life I am happy to take part in this discussion by telephone conferencing or by contacting family independently upon request CC time > 60 min spent reviewing patient w/ RN and hospitalist. Video assessment performed with HIPAA compliant technology. JIMI GORDON MD Sep 10, 2020 09:13
[2020-09-10] MEDS: NORCURON IV PRN ×5 (09:21→16:52)
[2020-09-10] MEDS: SUBLIMAZE 2,000 MCG in NS 250ML 160 ML IV SCH (09:33)
--- NOTE | 2020-09-10 10:03 | DIREP ---
PROCEDURE:CHEST 1 VIEW COMPARISON:[facility], CR, XRAY CHEST SINGLE VW, 09/08/2020, 10:15 AM. INDICATIONS:COVID PNA, Intubation FINDINGS: LUNGS/PLEURA:Some improvement in aeration in the left lung with moderate persisting consolidation, septal thickening and scattered infiltrates with ground-glass opacity on the left with near complete white out on the right this is slightly worse on the right. Stable tracheostomy tube. VASCULATURE:Normal. Unremarkable pulmonary vasculature. CARDIAC:Normal. No cardiac silhouette abnormality or cardiomegaly. MEDIASTINUM:NG tube tip extends below the inferior aspect of the image. BONES:Normal. No fracture or visible bony lesion. OTHER:Negative. CONCLUSION:Extensive airspace disease greater on the right. See above discussion. Dictated by: Jony Cox M.D. on 09/10/2020 at 10:03 AM
--- NOTE | 2020-09-10 11:25 | PRM.PN ---
Assessment & Plan Provider Note: DNR Note Mr Jean does not have decision making capacity (intubated, sedated). His Amanda is his surrogate decision maker. I spoke with her by telephone. I recommended continued full aggressive care but forgoing CPR as it will be expected to harm and not help him. I advised we should reverse this as soon as he improves. She stated that his wishes under these circumstances would be to choose DNR status and we have made that change. I promised her this will not result in any reduced level of intensity of treatment. He will be DNR JIMI GORDON MD Sep 10, 2020 11:25
--- NOTE | 2020-09-10 12:35 | NUR ---
1130- Amanda called nurse, request for spiritual music to be played, for holy water to be applied to pt's forhead and hand. Rosary to be placed in pt's hand. called back from pt's phone, phone placed to pt's ear so could speak to patient. tearful, nurse informed her that she could talk to patient again later about 2 pm, states understanding. Will continue to monitor.
[2020-09-10] MEDS: D5W 1000ML/KCL 20MEQ 1,000 ML IV SCH ×2 (13:08→22:30)
--- NOTE | 2020-09-10 13:54 | NUR ---
Pt's called and spoke with charge nurse. sent a message to pt's phone asking if pt was given or could be given Hydrochloroquine and Ivermectin. Dr Boogie notified and call and spoke with .
--- NOTE | 2020-09-10 14:15 | NUR ---
Respiratory therapist at bedside, ET Tube advanced 3 cm from 23cm at teeth to 26 cm as requested by Dr Rodriguez. Pt oxygen saturation currently 85-88%. Will continue to monitor.
--- NOTE | 2020-09-10 14:54 | PRM.PN ---
PROGRESS NOTE S/O/A/P CC: acute respiratory failure. Subjective: unobtainable. last 12 hrs events: Respiratory status deteriorated. he cannot maintain his O2 sat on high vent setting. we repositioned him many times to see if that will help but his O2 sat still below 90%. no fever. HD stable except for tachycardia. ROS: unobtainable. Objective Vital Sign - Last 24 Hours 09/09/20 09/09/20 09/09/20 09/09/20 15:00 15:00 15:00 15:07 Temp 99.7 Pulse 66 90 90 82 Resp 28 28 B/P (MAP) 152/82 (105) 138/82 (100) Pulse Ox 96 96 96 97 09/09/20 09/09/20 09/09/20 09/09/20 15:15 15:30 16:00 16:00 Temp 99.9 99.9 Pulse 79 76 63 Resp 13 22 Pulse Ox 98 99 94 O2 Delivery Mechanical Ventilator FiO2 100 09/09/20 09/09/20 09/09/20 09/09/20 16:00 18:21 19:00 19:07 Temp 99.1 99.1 Pulse 60 63 63 61 Resp 22 22 18 B/P (MAP) 142/76 (98) Pulse Ox 90 94 93 93 FiO2 100 100 09/09/20 09/09/20 09/09/20 09/09/20 19:15 19:30 19:37 19:45 Temp 99.1 99.0 99.0 99.0 Pulse 63 62 63 62 Resp 22 23 23 23 B/P (MAP) 154/79 (104) Pulse Ox 94 94 93 92 09/09/20 09/09/20 09/09/20 09/09/20 20:00 20:00 20:00 20:00 Temp 99.0 Pulse 61 60 62 Resp 23 22 24 Pulse Ox 92 90 92 O2 Delivery Mechanical Ventilator FiO2 100 100 09/09/20 09/09/20 09/09/20 09/09/20 20:07 20:15 20:30 20:37 Temp 98.8 98.8 98.6 98.6 Pulse 63 61 81 62 Resp 22 23 27 22 B/P (MAP) 144/77 (99) 133/69 (90) Pulse Ox 92 92 75 90 09/09/20 09/09/20 09/09/20 11/29/20 20:45 21:00 21:07 21:15 Temp 98.6 98.4 98.2 98.2 Pulse 62 64 64 63 Resp 22 22 22 22 B/P (MAP) 139/75 (96) Pulse Ox 93 94 94 94 09/09/20 09/09/20 09/09/20 09/09/20 21:30 21:37 21:45 22:57 Temp 98.2 98.1 98.1 Pulse 62 60 61 61 Resp 22 22 22 23 B/P (MAP) 135/73 (93) Pulse Ox 94 94 95 92 09/09/20 09/09/20 09/09/20 09/09/20 22:57 22:58 22:58 23:00 Temp 97.7 Pulse 64 61 64 55 Resp 22 23 22 22 Pulse Ox 94 92 94 93 O2 Delivery Mechanical Ventilator FiO2 100 100 09/09/20 09/09/20 09/09/20 09/09/20 23:07 23:15 23:30 23:37 Temp 97.7 97.7 97.7 97.7 Pulse 55 56 54 54 Resp 22 22 22 22 B/P (MAP) 127/69 (88) 136/73 (94) Pulse Ox 95 95 95 94 09/09/20 09/10/20 09/10/20 09/10/20 23:45 00:00 00:00 00:00 Temp 97.5 97.5 Pulse 54 54 60 Resp 22 22 22 Pulse Ox 91 94 90 O2 Delivery Mechanical Ventilator FiO2 100 09/10/20 09/10/20 09/10/20 09/10/20 00:07 00:30 02:15 02:30 Temp 97.5 97.2 97.2 Pulse 56 55 55 54 Resp 22 22 22 22 B/P (MAP) 132/71 (91) Pulse Ox 93 94 92 92 FiO2 100 09/10/20 09/10/20 09/10/20 09/10/20 02:37 02:45 03:00 03:00 Temp 97.2 97.2 97.0 Pulse 54 53 55 53 Resp 22 22 22 22 B/P (MAP) 128/68 (88) Pulse Ox 93 91 92 92 09/10/20 09/10/20 09/10/20 09/10/20 03:00 03:07 03:15 03:30 Temp 97.0 97.0 97.0 Pulse 55 62 58 64 Resp 22 B/P (MAP) 132/70 (90) Pulse Ox 94 91 89 92 09/10/20 09/10/20 09/10/20 09/10/20 03:32 03:37 03:45 04:00 Temp 97.0 97.2 Pulse 55 72 77 60 Resp 22 B/P (MAP) 133/66 (88) Pulse Ox 92 93 92 90 FiO2 100 100 09/10/20 09/10/20 09/10/20 09/10/20 04:00 04:07 04:15 04:30 Temp 97.2 97.3 97.5 97.7 Pulse 85 84 88 110 Resp 22 B/P (MAP) 130/67 (88) Pulse Ox 88 87 84 83 09/10/20 09/10/20 09/10/20 09/10/20 04:37 04:45 05:00 05:07 Temp 97.9 97.9 98.1 98.2 Pulse 93 90 88 87 Resp 22 B/P (MAP) 135/69 (91) 136/66 (89) Pulse Ox 85 88 89 90 09/10/20 09/10/20 09/10/20 09/10/20 05:15 06:13 06:17 07:00 Temp 98.2 99.1 Pulse 89 69 93 Resp 22 B/P (MAP) 150/65 Pulse Ox 90 89 90 FiO2 100 09/10/20 09/10/20 09/10/20 09/10/20 07:07 07:10 07:20 07:30 Temp 99.3 99.3 99.5 99.7 Pulse 95 92 99 105 Resp 24 B/P (MAP) 178/78 (111) Pulse Ox 89 89 89 88 09/10/20 09/10/20 09/10/20 09/10/20 07:37 07:40 07:50 07:50 Temp 99.9 100.0 100.4 Pulse 111 114 115 114 Resp 22 B/P (MAP) 212/99 (136) Pulse Ox 87 86 86 87 FiO2 100 09/10/20 09/10/20 09/10/20 09/10/20 07:58 08:00 08:09 08:10 Temp 100.4 100.6 100.8 Pulse 121 118 114 Resp B/P (MAP) 132/65 (87) 145/82 (103) Pulse Ox 83 82 70 09/10/20 09/10/20 09/10/20 09/10/20 08:20 08:20 08:35 08:37 Temp 100.9 100.9 101.3 101.3 Pulse 110 110 101 101 Resp 28 B/P (MAP) 66/39 (48) Pulse Ox 89 89 88 88 09/10/20 09/10/20 09/10/20 09/10/20 08:40 08:46 08:50 08:53 Temp 101.3 101.5 101.5 Pulse 95 95 92 Resp 8 B/P (MAP) 66/40 (49) 62/38 (46) 66/37 (47) Pulse Ox 88 89 89 O2 Delivery Mechanical Ventilator 09/10/20 09/10/20 09/10/20 09/10/20 08:55 08:59 09:00 09:03 Temp 101.5 101.5 101.5 101.5 Pulse 90 87 84 87 Resp B/P (MAP) 71/40 (50) 86/48 (61) 96/55 (69) Pulse Ox 92 85 86 90 09/10/20 09/10/20 09/10/20 09/10/20 09:07 09:08 09:09 09:14 Temp 101.5 Pulse 92 104 104 104 Resp 32 B/P (MAP) 108/57 (74) Pulse Ox 91 90 90 90 09/10/20 09/10/20 09/10/20 09/10/20 09:15 09:15 09:30 09:38 Temp 101.7 101.7 101.7 Pulse 104 99 108 112 Resp B/P (MAP) 136/74 (94) Pulse Ox 90 92 92 90 O2 Delivery Mechanical Ventilator FiO2 100 09/10/20 09/10/20 09/10/20 09/10/20 09:45 09:45 10:00 10:07 Temp 101.8 101.8 102.0 102.0 Pulse 115 115 116 113 Resp 22 22 22 22 B/P (MAP) 126/58 (80) Pulse Ox 93 93 91 90 09/10/20 09/10/20 09/10/20 09/10/20 10:15 10:19 10:21 10:30 Pulse 107 113 115 118 Resp 20 27 24 8 B/P (MAP) 134/68 (90) 130/64 (86) Pulse Ox 74 68 74 77 09/10/20 09/10/20 09/10/20 09/10/20 10:37 10:45 10:45 11:08 Temp 101.7 Pulse 114 120 120 119 Resp 22 B/P (MAP) 111/59 (76) Pulse Ox 78 75 75 79 09/10/20 09/10/20 09/10/20 09/10/20 11:10 11:15 11:30 11:37 Pulse 119 116 115 113 Resp B/P (MAP) 129/67 (87) 102/55 (71) Pulse Ox 80 81 81 81 09/10/20 09/10/20 09/10/20 09/10/20 11:45 11:50 12:00 12:07 Pulse 114 125 115 112 Resp 22 B/P (MAP) 108/55 (72) Pulse Ox 80 80 81 81 09/10/20 09/10/20 09/10/20 09/10/20 12:15 12:18 12:30 12:33 Temp 101.4 Pulse 111 112 112 Resp B/P (MAP) 114/61 (78) Pulse Ox 81 81 81 O2 Delivery Mechanical Ventilator FiO2 100 Intake and Output 09/10/20 07:00 Intake Total 4334 ml Output Total 3300 ml Balance 1034 ml Physical exam: General: he is in mild distress. Neuro:sedated. Heart: Normal S1, Normal S2, No murmurs. Abdomen: Normal bowel sounds, Soft Lungs: breath sounds equal and symmetric. Lungs are full of rales. no wheezes. Skin: No rashes, No breakdown, No significant lesion. Extremities: +edema. palpable pulses. Laboratory Tests Test 09/10/20 04:18 09/10/20 04:20 09/10/20 07:41 White Blood Count 17.5 10^3/uL Red Blood Count 4.34 10^6/uL Hemoglobin 13.8 g/dL Hematocrit 39.8 % Mean Corpuscular Volume 91.7 fL Mean Corpuscular Hemoglobin 31.8 pg Mean Corpuscular Hemoglobin Concent 34.7 g/dL Red Cell Distribution Width 12.2 % Platelet Count 129 10^3/uL Mean Platelet Volume 9.4 fL Activated Partial Thromboplast Time 27.2 SEC Fibrinogen 621 mg/dL D-Dimer 5.93 mg/L Sodium Level 140 mmol/L Potassium Level 3.9 mmol/L Chloride Level 104.0 mmol/L Carbon Dioxide Level 30.8 mmol/L Anion Gap 9.1 Blood Urea Nitrogen 19 mg/dL Creatinine 0.55 mg/dL Estimated GFR () 187.1 Est GFR (CKD-EPI)(Non-Afr [place]) 154.7 BUN/Creatinine Ratio 34.0 Glucose Level 138 mg/dL Calcium Level 8.0 mg/dL Total Bilirubin 0.7 mg/dL Aspartate Amino Transf (AST/SGOT) 55 U/L Alanine Aminotransferase (ALT/SGPT) 63 U/L Alkaline Phosphatase 81 U/L Total Protein 5.5 g/dL Albumin 1.5 g/dL Globulin 4.0 Albumin/Globulin Ratio 0.375 Triglycerides Level 207 mg/dL Vancomycin Level Trough 10.8 ug/mL Blood Gas Sample Site LEFT RADIAL ARTERY Blood Gas pH 7.477 Blood Gas PCO2 40.6 mmHg Blood Gas PO2 52.8 mmHg Blood Gas HCO3 29.4 mmol/L Blood Gas Base Excess 5.4 mmol/L Vince Test POSITIVE Arterial Blood Oxygen Saturation 87.5 % Deoxyhemoglobin 12.2 % Carboxyhemoglobin 2.4 % Methemoglobin 0.3 % Total Hemoglobin 15.1 % Total Oxygen Concentration 18.0 % Blood Gas Temperature 37.0 Oxygen Delivery Method (LAB) VENT Blood Gas Vent Mode AC Blood Gas Vent Rate 22 FiO2 100 % Blood Gas Tidal Volume 500 ML Blood Gas PEEP 12.0 CMH2O Total Carbon Dioxide 30.6 mmol/L Bedside Glucose 95 Current Medications Medications (Trade) Dose Ordered Sig/Estuardo Route PRN Reason Start Time Stop Time Status Last Admin Dose Admin Enoxaparin Sodium (Lovenox) 40 mg DAILY SQ 08/31/20 09:00 09/04/20 11:47 DC 09/04/20 09:00 Remdesivir 200 mg/ Sodium Chloride 140 ml @ 120.69 mls/ hr OT IV 08/31/20 09:30 08/31/20 10:40 DC 08/31/20 09:38 Lorazepam (Ativan) 1 mg Q3HR PRN IV ANXIETY 08/31/20 05:00 09/01/20 10:41 DC 09/01/20 06:00 Azithromycin 500 mg/Sodium Chloride 250 ml @ 175 mls/hr Q24HRS IV 08/31/20 05:00 09/04/20 08:00 DC 09/04/20 04:12 Ceftriaxone Sodium 1000 mg/ Sodium Chloride 100 ml @ 100 mls/hr Q24HRS IV 08/31/20 05:00 09/05/20 09:27 DC 09/05/20 04:49 Lorazepam (Ativan) 1 mg STAT STAT IV 08/31/20 05:16 08/31/20 08:31 DC 08/31/20 05:34 Sodium Chloride 100 ml @ ud STK-MED ONCE IV 08/31/20 05:18 08/31/20 05:21 DC Ceftriaxone Sodium (Rocephin) 1,000 mg STK-MED ONCE .ROUTE 08/31/20 05:19 08/31/20 05:21 DC Sodium Chloride 500 ml @ ud STK-MED ONCE IV 08/31/20 05:37 08/31/20 05:40 DC Morphine Sulfate (Morphine Sulfate) 0.5 mg STAT ONCE IV 08/31/20 06:15 08/31/20 08:44 DC 08/31/20 06:15 Albuterol/ Ipratropium (Duo 0.5-3(2.5) Mg/3 ml) 3 ml RTQ6H IH 08/31/20 08:00 09/30/20 07:59 09/10/20 09:07 Albuterol Sulfate (Ventolin) 2.5 mg RTQ4 PRN IH WHEEZING 08/31/20 08:00 09/30/20 07:59 09/05/20 09:00 Furosemide (Lasix) 40 mg STAT STAT IV 08/31/20 07:55 08/31/20 08:44 DC 08/31/20 08:08 Morphine Sulfate (Morphine Sulfate) 0.5 mg OT STAT IV 08/31/20 07:56 08/31/20 08:44 DC 08/31/20 08:25 Lorazepam (Ativan) 0.5 mg STAT STAT IV 08/31/20 07:56 08/31/20 08:43 DC 08/31/20 08:23 Sodium Chloride 250 ml @ ud STK-MED ONCE IV 08/31/20 08:03 08/31/20 08:05 DC Sodium Chloride 100 ml @ ud STK-MED ONCE IV 08/31/20 09:34 08/31/20 09:36 DC Remdesivir 100 mg/ Sodium Chloride 120 ml @ 111.111 mls/hr Q24HRS IV 09/01/20 09:00 09/05/20 09:23 DC 09/05/20 08:39 Aspirin (Aspirin) 81 mg DAILY PO 09/01/20 09:00 10/01/20 08:59 09/10/20 08:43 Famotidine (Pepcid) 20 mg BID PO 08/31/20 21:00 09/01/20 22:57 DC 09/01/20 21:00 Ascorbic Acid (Vitamin C) 500 mg BID PO 08/31/20 21:00 09/30/20 20:59 09/10/20 08:43 Zinc Sulfate (Zinc Sulfate) 220 mg DAILY PO 08/31/20 21:00 09/30/20 20:59 09/10/20 08:43 Guaifenesin (Robitussin Dm) 5 ml Q4HR PRN PO COUGH 09/01/20 01:30 09/01/20 10:41 DC Morphine Sulfate (Morphine Sulfate) 2 mg STK-MED ONCE .ROUTE 09/01/20 03:32 09/01/20 03:34 DC Morphine Sulfate (Morphine Sulfate) 0.5 mg STAT STAT IV 09/01/20 03:33 09/01/20 03:35 DC 09/01/20 03:33 Sodium Chloride 100 ml @ ud STK-MED ONCE IV 09/01/20 05:28 09/01/20 05:30 DC Sodium Chloride 250 ml @ ud STK-MED ONCE IV 09/01/20 05:29 09/01/20 05:30 DC Ceftriaxone Sodium (Rocephin) 1,000 mg STK-MED ONCE .ROUTE 09/01/20 05:29 09/01/20 05:31 DC Benzonatate (Tessalon Perle) 100 mg Q2 PRN PO COUGH 09/01/20 06:00 09/01/20 05:50 DC Dexmedetomidine HCl 200 mcg/ Sodium Chloride 50 ml @ 0 mls/hr IV 09/01/20 06:00 09/01/20 08:24 DC Sodium Chloride 250 ml @ ud STK-MED ONCE IV 09/01/20 05:37 09/01/20 05:39 DC Benzonatate (Tessalon Perle) 200 mg TID PRN PO COUGH 09/01/20 06:00 09/01/20 10:41 DC 09/01/20 06:00 Acetaminophen/ Hydrocodone Bitart (Adams 5mg) 1 ea TID PRN PO PAIN 4 - 6 09/01/20 06:00 09/01/20 10:41 DC Dexmedetomidine HCl 400 mcg/ Sodium Chloride 100 ml @ 0 mls/hr IV 09/01/20 08:30 09/04/20 19:42 DC 09/04/20 08:49 Sodium Chloride 1,000 ml @ ud STK-MED ONCE .ROUTE 09/01/20 10:16 09/01/20 10:18 DC Sodium Chloride 1,000 ml @ ud STK-MED ONCE .ROUTE 09/01/20 10:18 09/01/20 10:20 DC Propofol 100 ml @ ud STK-MED ONCE IV 09/01/20 10:28 09/01/20 10:30 DC Vecuronium [place] (Norcuron) 10 mg STK-MED ONCE .ROUTE 09/01/20 10:29 09/01/20 10:31 DC Propofol (Diprivan) Diprivan IV infusion tritra... TITRATE PRN IV sedation 09/01/20 10:30 10/01/20 10:29 09/10/20 12:07 Propofol (Diprivan) STAT STAT IV 09/01/20 10:29 09/01/20 10:38 DC 09/01/20 11:50 Vecuronium [place] (Norcuron) 5 mg Q1HR IV 09/01/20 11:00 09/04/20 11:10 DC 09/04/20 06:28 Vecuronium [place] (Norcuron) 2 mg Q30MIN PRN IV paralysis 09/01/20 11:00 09/08/20 11:19 DC 09/04/20 10:00 Fentanyl Citrate 1000 mcg/Sodium Chloride 100 ml @ 0 mls/hr IV 09/01/20 11:30 09/07/20 20:40 DC 09/07/20 15:43 Sterile Water (Water) 1,000 ml STK-MED ONCE .ROUTE 09/01/20 13:55 09/01/20 13:57 DC Propofol (Diprivan) 200 mg STK-MED ONCE IV 09/01/20 12:00 09/01/20 21:42 DC Rocuronium [place] (Zemuron) 100 mg STK-MED ONCE IV 09/01/20 12:00 09/01/20 21:42 DC Succinylcholine Chloride (Quelicin) 100 mg STK-MED ONCE IV 09/01/20 12:00 09/01/20 21:42 DC Famotidine (Pepcid) 20 mg BID IV 09/02/20 09:00 10/02/20 08:59 09/10/20 08:43 Famotidine (Pepcid) 20 mg STK-MED ONCE IV 09/02/20 07:57 09/02/20 07:59 DC Albuterol/ Ipratropium (Duoneb 0.5 Mg-3 Mg/3 ml Soln) 3 ml STK-MED ONCE IH 09/02/20 08:37 09/02/20 08:39 DC Sterile Water (Water) 1,000 ml STK-MED ONCE .ROUTE 09/03/20 14:28 09/03/20 14:30 DC Sodium Chloride 500 ml @ ud STK-MED ONCE IV 09/04/20 09:35 09/04/20 09:37 DC Vecuronium [place] (Norcuron) 15 mg Q1HR PRN IV vent dsynchrony or hypoxia 09/04/20 11:30 10/04/20 11:29 09/10/20 14:15 Enoxaparin Sodium (Lovenox) 40 mg BID SQ 09/04/20 21:00 09/08/20 10:44 DC 09/08/20 09:36 Sterile Water (Water) 1,000 ml STK-MED ONCE .ROUTE 09/04/20 17:03 09/04/20 17:05 DC Dexmedetomidine HCl 800 mcg/ Sodium Chloride 200 ml @ 0 mls/hr IV 09/04/20 20:00 09/07/20 20:39 DC 09/07/20 11:26 Vancomycin HCl 1.5 gm/Sodium Chloride 300 ml @ 175 mls/hr Q12H IV 09/05/20 11:00 09/07/20 18:15 DC 09/07/20 10:46 Cefepime HCl 2 gm/ Sodium Chloride 100 ml @ 100 mls/hr Q8H IV 09/05/20 09:30 09/07/20 11:14 DC 09/07/20 09:27 Vecuronium [place] (Norcuron) 10 mg STK-MED ONCE .ROUTE 09/05/20 12:00 09/05/20 16:06 DC Sodium Chloride 500 ml @ ud STK-MED ONCE IV 09/05/20 21:36 09/05/20 21:38 DC Piperacillin Sod/ Tazobactam Sod 3.375 gm/Sodium Chloride 100 ml @ 100 mls/hr Q6H IV 09/07/20 11:30 09/07/20 12:27 DC Piperacillin Sod/ Tazobactam Sod 3.375 gm/Sodium Chloride 100 ml @ 100 mls/hr Q6H IV 09/07/20 13:00 10/07/20 12:59 09/10/20 12:11 Vancomycin HCl 1.5 gm/Sodium Chloride 300 ml @ 175 mls/hr Q8H IV 09/07/20 20:00 09/08/20 14:57 DC 09/08/20 13:30 Sodium Chloride 500 ml @ ud STK-MED ONCE IV 09/07/20 20:09 09/07/20 20:10 DC Dexmedetomidine HCl 1600 mcg/ Sodium Chloride 400 ml @ 0 mls/hr IV 09/07/20 21:00 10/07/20 20:59 Fentanyl Citrate 2000 mcg/Sodium Chloride 200 ml @ 0 mls/hr IV 09/07/20 21:00 09/07/20 20:41 DC Fentanyl Citrate 2000 mcg/Sodium Chloride 200 ml @ 0 mls/hr IV 09/07/20 21:00 10/07/20 20:59 09/10/20 09:33 Enoxaparin Sodium (Lovenox) 90 mg BID SQ 09/08/20 21:00 10/08/20 20:59 09/10/20 08:44 Furosemide (Lasix) 20 mg STAT STAT IV 09/08/20 10:42 09/08/20 11:31 DC 09/08/20 11:44 Furosemide (Lasix) 20 mg STK-MED ONCE .ROUTE 09/08/20 10:52 09/08/20 10:54 DC Dextrose 1,000 ml @ 100 mls/hr Q10H ONCE IV 09/08/20 14:30 09/09/20 00:29 DC 09/08/20 15:10 Vancomycin HCl 1 gm/Sodium Chloride 300 ml @ 175 mls/hr Q8H IV 09/08/20 21:00 09/09/20 08:39 DC 09/09/20 04:50 Sterile Water (Water) 1,000 ml STK-MED ONCE .ROUTE 09/09/20 04:59 09/09/20 05:01 DC Vancomycin HCl 1 gm/Sodium Chloride 250 ml @ 145.843 mls/hr Q8H IV 09/09/20 08:39 09/09/20 08:40 DC Vancomycin HCl 1 gm/Sodium Chloride 250 ml @ 175 mls/hr Q8H IV 09/09/20 13:00 10/09/20 12:59 09/10/20 13:00 Potassium Chloride/Sodium Chloride 1,000 ml @ 100 mls/hr Q10H IV 09/09/20 11:30 09/10/20 12:26 DC 09/09/20 21:30 Furosemide (Lasix) 20 mg STAT STAT IV 09/09/20 12:29 09/09/20 12:32 DC 09/09/20 12:29 Furosemide (Lasix) 40 mg STAT STAT IV 09/10/20 06:17 09/10/20 08:18 DC 09/10/20 06:17 Potassium Chloride/Dextrose 1,000 ml @ 100 mls/hr Q10H IV 09/10/20 12:30 10/10/20 12:29 09/10/20 13:08 PROCEDURE:CHEST 1 VIEW COMPARISON:[facility], CR, XRAY CHEST SINGLE VW, 09/06/2020, 08:24 AM. [facility], CR, XRAY CHEST SINGLE VW, 09/04/2020, 07:26 AM. INDICATIONS:COVID PNA, Intubation FINDINGS: LUNGS/PLEURA:Endotracheal tube is again high riding terminating approximately 7.5 cm from the chuy. More confluent opacities are seen in bilateral lungs. Scattered adjacent ground-glass opacities. No large pleural effusion. CARDIAC:Normal cardiac silhouette and normal pulmonary vascularity. MEDIASTINUM:No visible mass or adenopathy. BONES:Thoracic spondylosis. OTHER:NGT with side hole projecting over the gastric bubble. Possible left midline catheter. CONCLUSION: 1. Worsened confluent opacities in bilateral lungs compatible with worsening COVID-19 pneumonia. 2. High-riding endotracheal tube. Assessment & Plan: Assessment Hospital course: Pt is a 54 y/o M with PMHx of HTN, HLD, obesity, and anxiety. He was admitted the morning of 08/31 as a transfer from OSH for acute hypoxemic respiratory failure and COVID-19. He was started on full spectrum treatment for COVID-19 with IV Decadron, Azithromycin, Remdesivir, CCP, Zinc, and Vitamin C. On arrival to this facility, he was in mild to moderate respiratory distress and required continuous CPAP to maintain Oxygenation. He remained relatively stable throughout 08/31, but started becoming more fatigued the evening of 08/31, and was moved to the ICU for closer monitoring. In the ICU, he was continued on CPAP in an effort to avoid intubation. However, he continued to have difficulty with NIPPV and was frequently dyssynchronous, causing further desaturations. He was also noted to have Sub q emphysema in his chest and neck, which was concerning f or barotrauma due to continued dyssynchrony. The morning of 09/01, he was noted to be in worsened respiratory distress and there was concern for impending respiratory collapse due to fatigue. The patient and I discussed intubation and he agreed to be electively intubated before he decompensated completely. The on- call [facility] UP was called and the patient was subsequently intubated without complication. He was started on Propofol and fentanyl drips and paralyzed with IV vecuronium pushes. He has tolerated mechanical ventilation rather well and his O2 sats and PaO2 have improved markedly. Prior to intubation his ABG showed normal pH and a PaO2 in the 50's. His PaO2 improved to 70's within the hour, and was 150's on his most recent ABG the evening of 09/01. Of note, I did discuss the possibility of prolonged intubation, need for tracheostomy, and whether this is something that he would want done. He agreed that tracheostomy and long-term vent weaning is something that he would be ok with if it came down to it. Since intubation, he has improved markedly. He was continued on treatment for COVID with Remdesivir, steroids, and azithromycin and has completed his courses of each of these. His inflammtory markers have been downtrending with the exception of D-dimer which is uptrending slowly. His WBC was previously trending down, but increased sharply from 15 to 19 today. He has also been fevering so his Abx were broadened out to Vanc/Cefepime this AM and repeat Blood and sputum cultures were obtained. 09/06/2020: he remained stable. still have low grade fever. blood cultures are negative. 09/07: o2 level improved with prone position. still require high vent settings. 09/08: stable. he will be placed in prone position again today. 09/09: stable. he is running fever. CXR showed worsening air space disease. 09/10: his condition deteriorated. O2 sat dropped with high vent setting. he is made DNR. Assessments: Neuro: sedated. CV:HD stable. # Hx HTN but off lisinopril due to soft BP. Pulmo: #Acute respiratory failure/ARDS on mechanical ventilation: managed by ICU telemedicine.Keep Pplat < 30 to limit risk of pneumothorax and barotrauma. #COVID-19 pneumonia: He is still on high setting, O2 sat dropping below 90%. he is now in prone position with O2 sat 80s%. CXR showed worsening air space disease.possibly superimposed with HAP. Procalcitonin is normal. covid markers still high. - C/w IV dexamethasone 6 mg daily. - Pt has completed course of Remdesivir. - s/p 1u CCP - c/w Vanc day 6 - c/w Zosyn day 4(was on Cefepime) - adjusted Endotracheal tube position. - keep in prone position for 16 hr/24 hrs. - continue Propofol/Fentanyl for sedation/analgesia; precedex is available for backup sedation if needed - continue IV Vecuronium 15mg q1h + IV Vec 2mg q30min PRN - trend COVID markers q48h - CXR q48h and PRN Pneumomediastinum without pneumothorax: stable. GI:TF boluses when supine(8 hrs) , will hold feeding today until more stable. : no issues endo: BG normal. heme: #High D.Dimer: he is on Lovenox 90 mg BID due to high D.Dimer. D.Dimer is higher today. he is too unstable to get CTA chest. ID: #Sepsis: fever and leukocytosis: Influenza A&B, blood culture, sputum GS and Cx. FEN: Dehydration:resolved. will dc IVF. Hypokalemia:replacement. corrected calcium is normal. Sedation: propofol/precedex Analgesia: Fent VTE ppx: Lovenox. GI ppx: Pepcid Diet: TF per dietary recs CODE: DNR Time Spent: > 40 minutes between evaluation, coordination of care, and documentation I spoke to his Amanda Sparks ([phone]) for updates. prognosis is poor. ARMANDO OLIVARES MD Sep 10, 2020 14:54
[2020-09-10] MEDS ORDERED: DUONEB 0.5 MG-3 MG/3 ML SOLN IH ONE (14:59)
--- NOTE | 2020-09-10 15:18 | DIREP ---
PROCEDURE:CHEST 1 VIEW COMPARISON:[facility], CR, XRAY CHEST SINGLE VW, 09/04/2020, 07:26 AM. [facility], CT, CT CHEST W/O, 09/01/2020, 03:57 PM. [facility], CR, XRAY CHEST SINGLE VW, 09/08/2020, 10:15 AM. [facility], CR, XRAY CHEST SINGLE VW, 09/10/2020, 09:26 AM. INDICATIONS:advanced ett FINDINGS: LUNGS/PLEURA:ETT tip 5 cm above the chuy. Diffuse bilateral heterogeneous infiltrates with some ground-glass, but predominantly consolidative, components. CARDIAC:Cardiac margins are obscured by bilateral lung density. MEDIASTINUM:Normal. No visible mass or adenopathy. BONES:Normal. No fracture or visible bony lesion. OTHER:A catheter tip is identified over the left upper arm and axillary region. A gastric tube extends into the stomach below the field of view of this exam. CONCLUSION: 1. ETT in satisfactory position. 2. Re-demonstrated findings of severe bilateral pneumonia. Compared to the earlier exam of same date, there is increased infiltrate density and decreased aeration in the left upper lung on the present exam. 3. A catheter tip is once again noted in the left upper arm and left axilla. This is of uncertain nature. It is more peripherally located than would be expected for a PICC line. Recommend correlation with recent catheter placement and therapy. Dictated by: Jose Armando Juarez M.D. on 09/10/2020 at 03:11 PM
--- NOTE | 2020-09-10 16:04 | NUR ---
Amanda, called requesting for nurse to allow her and pt's brother to talk to patient. Return call made to from pt's phone, family spoke to pt, encouraging him to get better. request for pt to listen to foot ball game today. Nurse will attempt to honor her request.
--- NOTE | 2020-09-10 16:18 | NUR ---
Pt temp down to 99.5, cooling blanket turned off, will continue to monitor.
--- NOTE | 2020-09-10 18:31 | NUR ---
Pt's son called nurse and states a message was sent to pt's phone. Son request for nurse to relay message to physician. Face time performed with pt son with pt's phone. Son spoke to patient. marii informed that requested hearing of [employer] foot ball game has been rescheduled, states understanding. Dr Boogie informed and will call and son.
[2020-09-10] MEDS ORDERED: NS 500ML 500 ML IV ONE (20:38)
[2020-09-11] VITALS (66 sets, daily range): BP systolic 61–154; BP diastolic 26–94
[2020-09-11] MEDS: PRECEDEX IV SCH ×2 (00:02→20:10)
[2020-09-11] MEDS: NS IV SCH ×2 (00:02→20:10)
[2020-09-11] MEDS: ZOSYN 3.375 GM 3.375 GM in NS 100ML 100 ML IV SCH ×4 (00:36→19:30)
[2020-09-11] MEDS: NORCURON IV PRN ×5 (02:00→10:00)
[2020-09-11] MEDS: DUO 0.5-3(2.5) MG/3 ML IH SCH ×4 (03:29→21:15)
[2020-09-11] MEDS: VANCOMYCIN HCL 1 GM in NS 250ML 250 ML IV SCH ×3 (05:00→21:45)
[2020-09-11 05:51] LABS: RED CELL DISTRIBUTION WIDTH 12.6 % (11.5-14.5)
[2020-09-11 06:07] LABS: CALCIUM 7.9 mg/dL (8.4-10.5); CARBON DIOXIDE 31.3 mmol/L (20.0-32)
--- NOTE | 2020-09-11 06:16 | NUR ---
Pt positioned from prone to supine with the support of the RT and several nurses. Tolerated well. Once settled 02 dropped to 88-89%, from an average range of 94-98% when proned, but not other changes noted. Will continue to monitor. Safety maintained.
--- NOTE | 2020-09-11 06:40 | NUR ---
REPORT REPOT RECEIVED FROM PREVIOUS SHIFT AND ASSUMED CARE OF PT
--- NOTE | 2020-09-11 07:50 | NUR ---
ABG RT AT BEDSIDE FOR ABG. SPO2 77%. DR OLIVARES ON UNIT AND AWARE. ORDERS RECEIVED TO GIVE BOLUS FEEDING BEFORE PRONING AND ADMINISTER LASIX 20MG IVP X1. RBVO
[2020-09-11 07:55] LABS: ABG PCO2 87.6 mmHg (35.0-45.0); ABG PH 7.226 (7.350-7.450); HCO3act 35.5 mmol/L (22.0-26.0); pO2 41.1 mmHg (80.0-100.0)
[2020-09-11] MEDS ORDERED: OFIRMEV IV PRN (08:00)
--- NOTE | 2020-09-11 08:20 | NUR ---
VECURONIUM VECURONIUM 15MG ADMINISTERED PER PRN ORDERS. SPO2 77%
[2020-09-11] MEDS ORDERED: OFIRMEV IV SCH (08:30)
[2020-09-11] MEDS ORDERED: LASIX IV STA (08:31)
--- NOTE | 2020-09-11 08:36 | NUR ---
TYLENOL TYLENOL 1GM IV ADMINISTERED PER PRN ORDERS FOR TEMP 101.8
[2020-09-11] MEDS: D5W 1000ML/KCL 20MEQ 1,000 ML IV SCH (08:49)
[2020-09-11] MEDS: LOVENOX SQ SCH ×2 (08:49→20:50)
[2020-09-11] MEDS: SUBLIMAZE 2,000 MCG in NS 250ML 160 ML IV SCH ×2 (08:49→20:12)
[2020-09-11] MEDS: ZINC SULFATE PO SCH (08:50)
[2020-09-11] MEDS: ASPIRIN PO SCH (08:50)
[2020-09-11] MEDS: PEPCID IV SCH ×2 (08:50→20:50)
[2020-09-11] MEDS: VITAMIN C PO SCH ×2 (08:50→20:50)
[2020-09-11] MEDS: DEXAMETHASONE 10 MG/ML VIAL IV SCH (08:50)
--- NOTE | 2020-09-11 10:00 | NUR ---
PRONE VECURONIUM 15MG ADMINISTERED PER PRN ORDERS. PT PRONED AT THIS TIME. PT TOLERATED WELL.
--- NOTE | 2020-09-11 11:12 | PRM.PN ---
PROGRESS NOTE S/O/A/P Subjective: unobtainable. last 12 hrs events: Respiratory status still poor. he cannot maintain his O2 sat on high vent setting. we palced him on prone position yesterday which helped saturation to upper 80%. he is running fever today but HD stable. ROS: unobtainable. Objective Vital Sign - Last 24 Hours 09/10/20 09/10/20 09/10/20 09/10/20 11:08 11:10 11:15 11:30 Pulse 119 119 116 115 Resp B/P (MAP) 129/67 (87) Pulse Ox 79 80 81 81 09/10/20 09/10/20 09/10/20 09/10/20 11:37 11:45 11:50 12:00 Pulse 113 114 125 115 Resp B/P (MAP) 102/55 (71) Pulse Ox 81 80 80 81 09/10/20 09/10/20 09/10/20 09/10/20 12:07 12:15 12:18 12:18 Temp 101.4 Pulse 112 111 112 112 Resp B/P (MAP) 108/55 (72) 114/61 (78) 114/61 (78) Pulse Ox 81 81 81 81 09/10/20 09/10/20 09/10/20 09/10/20 12:30 12:33 12:33 12:37 Pulse 112 112 112 Resp B/P (MAP) 118/56 (76) Pulse Ox 81 81 81 O2 Delivery Mechanical Ventilator FiO2 100 09/10/20 09/10/20 09/10/20 09/10/20 12:48 13:03 13:07 13:18 Pulse 110 110 109 103 Resp B/P (MAP) 110/54 (72) 124/70 (88) Pulse Ox 81 80 81 81 09/10/20 09/10/20 09/10/20 09/10/20 13:33 13:37 13:48 14:03 Pulse 107 108 106 104 Resp B/P (MAP) 146/64 (91) Pulse Ox 83 83 82 83 09/10/20 09/10/20 09/10/20 09/10/20 14:07 14:11 14:18 14:33 Pulse 105 106 99 Resp B/P (MAP) 147/65 (92) 120/69 (86) Pulse Ox 84 88 84 84 09/10/20 09/10/20 09/10/20 09/10/20 14:37 14:48 15:03 15:07 Pulse 89 89 87 B/P (MAP) 112/57 (75) 106/56 (73) Pulse Ox 90 85 85 85 09/10/20 09/10/20 09/10/20 09/10/20 15:18 15:23 15:33 15:37 Pulse 85 85 83 82 Resp B/P (MAP) 98/48 (65) 107/62 (77) Pulse Ox 86 87 87 87 09/10/20 09/10/20 09/10/20 09/10/20 15:48 16:01 16:02 16:03 Temp 100.0 Pulse 82 105 105 81 Resp Pulse Ox 88 86 86 91 FiO2 100 09/10/20 09/10/20 09/10/20 09/10/20 16:07 16:18 16:21 16:22 Temp 100.0 99.9 99.9 Pulse 82 82 81 81 Resp B/P (MAP) 109/61 (77) Pulse Ox 92 92 92 92 FiO2 100 09/10/20 09/10/20 09/10/20 09/10/20 16:22 16:27 16:37 16:52 Temp 99.9 99.7 99.7 Pulse 81 81 82 Resp B/P (MAP) 114/61 (78) 116/48 (70) Pulse Ox 81 92 92 O2 Delivery Mechanical Ventilator 09/10/20 09/10/20 09/10/20 09/10/20 17:07 17:22 17:37 17:52 Temp 99.7 99.5 99.5 99.5 Pulse 83 87 89 88 Resp B/P (MAP) 125/58 (80) 114/57 (76) Pulse Ox 93 92 92 91 09/10/20 09/10/20 09/10/20 09/10/20 18:07 18:22 18:37 19:00 Temp 99.3 99.3 99.3 99.3 Pulse 86 87 88 86 Resp B/P (MAP) 127/59 (81) 126/64 (84) Pulse Ox 91 91 89 91 09/10/20 09/10/20 09/10/20 09/10/20 19:07 19:15 19:30 19:37 Temp 99.3 99.3 99.3 99.3 Pulse 88 86 85 84 Resp B/P (MAP) 126/70 (88) 122/66 (84) Pulse Ox 91 92 92 91 09/10/20 09/10/20 09/10/20 09/10/20 19:45 20:00 20:00 20:00 Temp 99.3 99.3 Pulse 86 86 86 84 Resp Pulse Ox 91 92 92 91 FiO2 100 09/10/20 09/10/20 09/10/20 09/10/20 20:00 20:00 20:00 20:00 Pulse 84 86 60 Resp Pulse Ox 91 92 90 O2 Delivery Mechanical Ventilator Mechanical Ventilator FiO2 100 100 09/10/20 09/10/20 09/10/20 09/10/20 20:07 20:15 20:30 20:37 Temp 99.3 99.3 99.3 99.3 Pulse 87 86 87 86 Resp B/P (MAP) 120/67 (84) 121/45 (70) Pulse Ox 93 92 92 92 09/10/20 09/10/20 09/10/20 09/10/20 20:45 21:00 21:07 21:15 Temp 99.3 99.3 99.1 99.1 Pulse 104 105 105 104 Resp B/P (MAP) 126/62 (83) Pulse Ox 91 93 93 93 09/10/20 09/10/20 09/10/20 09/10/20 21:30 21:45 22:00 22:03 Temp 99.1 99.1 99.1 Pulse 97 98 91 95 Resp Pulse Ox 93 94 94 91 FiO2 100 09/10/20 09/10/20 09/10/20 09/10/20 22:07 22:15 22:30 22:37 Temp 99.1 99.1 99.1 99.1 Pulse 90 88 89 85 Resp B/P (MAP) 130/71 (90) 120/68 (85) Pulse Ox 94 93 94 95 09/10/20 09/10/20 09/10/20 09/10/20 22:45 23:00 23:07 23:15 Temp 99.1 99.3 99.3 99.3 Pulse 87 87 84 85 Resp 22 22 22 22 B/P (MAP) 121/71 (88) Pulse Ox 95 95 95 95 09/10/20 09/10/20 09/10/20 09/11/20 23:30 23:37 23:45 00:00 Temp 99.3 99.3 99.3 Pulse 85 85 84 60 Resp 22 22 22 22 B/P (MAP) 129/60 (83) Pulse Ox 95 95 96 90 FiO2 100 09/11/20 09/11/20 09/11/20 09/11/20 00:00 00:00 00:07 00:15 Temp 99.3 99.5 99.5 Pulse 84 82 87 Resp 22 22 22 B/P (MAP) 126/73 (90) Pulse Ox 96 95 95 O2 Delivery Mechanical Ventilator 09/11/20 09/11/20 09/11/20 09/11/20 01:30 02:30 02:37 02:45 Temp 99.7 99.7 99.7 Pulse 79 81 78 Resp 23 B/P (MAP) 127/70 (89) Pulse Ox 97 96 97 95 FiO2 100 09/11/20 09/11/20 09/11/20 09/11/20 03:00 03:00 03:00 03:00 Pulse 84 88 88 Resp 22 22 22 Pulse Ox 92 92 92 94 FiO2 100 09/11/20 09/11/20 09/11/20 09/11/20 03:12 03:15 03:30 03:37 Temp 99.7 99.7 99.7 Pulse 116 113 119 117 Resp 58 23 22 22 B/P (MAP) 125/94 (104) 134/59 (84) Pulse Ox 92 89 09/11/20 09/11/20 09/11/20 09/11/20 03:45 04:00 04:00 04:07 Temp 99.7 99.7 99.7 Pulse 113 60 106 105 Resp 22 22 22 22 B/P (MAP) 117/60 (79) Pulse Ox 90 90 89 90 FiO2 100 12/1/09/11/20 09/11/20 09/11/20 04:15 04:30 04:37 04:45 Temp 99.7 99.7 99.7 99.7 Pulse 103 102 100 98 Resp 22 B/P (MAP) 123/57 (79) Pulse Ox 89 88 89 89 09/11/20 09/11/20 09/11/20 09/11/20 05:00 05:07 05:10 05:15 Temp 99.7 99.7 99.7 Pulse 88 88 83 85 Resp B/P (MAP) 110/58 (75) Pulse Ox 89 89 91 89 FiO2 100 09/11/20 09/11/20 09/11/20 09/11/20 06:37 07:07 07:37 08:07 Temp 99.9 100.4 100.9 101.5 Pulse 102 114 118 121 Resp B/P (MAP) 135/78 (97) 142/67 (92) 153/71 (98) 148/68 (94) Pulse Ox 88 83 78 79 09/11/20 09/11/20 09/11/20 09/11/20 08:37 08:38 08:50 09:07 Temp 101.7 102.0 Pulse 127 121 Resp B/P (MAP) 140/61 (87) 140/61 138/69 (92) Pulse Ox 77 74 O2 Delivery Mechanical Ventilator 09/11/20 09/11/20 09/11/20 09/11/20 09:35 09:37 09:37 09:37 Temp 101.8 Pulse 60 118 117 117 Resp B/P (MAP) 135/64 (87) Pulse Ox 90 76 80 80 FiO2 100 100 09/11/20 09/11/20 09/11/20 09/11/20 09:39 09:39 10:02 10:07 Temp 101.8 101.8 Pulse 117 117 127 129 Resp 22 B/P (MAP) 151/72 (98) 132/64 (86) Pulse Ox 80 80 55 71 O2 Delivery Mechanical Ventilator FiO2 100 Intake and Output 09/11/20 07:00 Intake Total 397 ml Output Total 3600 ml Balance -3203 ml Physical exam: General: he is in mild distress. Neuro:sedated. Heart: Normal S1, Normal S2, No murmurs. Abdomen: Normal bowel sounds, Soft Lungs: breath sounds equal and symmetric. Lungs are full of rales. no wheezes. Skin: No rashes, No breakdown, No significant lesion. Extremities: ++edema. palpable pulses. Laboratory Tests Test 09/10/20 15:55 09/11/20 04:26 09/11/20 07:45 Bedside Glucose 198 White Blood Count 15.8 10^3/uL Red Blood Count 4.09 10^6/uL Hemoglobin 13.1 g/dL Hematocrit 38.6 % Mean Corpuscular Volume 94.4 fL Mean Corpuscular Hemoglobin 32.0 pg Mean Corpuscular Hemoglobin Concent 33.9 g/dL Red Cell Distribution Width 12.6 % Platelet Count 104 10^3/uL Mean Platelet Volume 10.0 fL Sodium Level 138 mmol/L Potassium Level 4.0 mmol/L Chloride Level 103.0 mmol/L Carbon Dioxide Level 31.3 mmol/L Anion Gap 7.7 Blood Urea Nitrogen 16 mg/dL Creatinine 0.65 mg/dL Estimated GFR () 154.3 Est GFR (CKD-EPI)(Non-Afr [place]) 127.5 BUN/Creatinine Ratio 24.0 Glucose Level 129 mg/dL Calcium Level 7.9 mg/dL Total Bilirubin 0.8 mg/dL Aspartate Amino Transf (AST/SGOT) 60 U/L Alanine Aminotransferase (ALT/SGPT) 106 U/L Alkaline Phosphatase 96 U/L Total Protein 5.5 g/dL Albumin 1.4 g/dL Globulin 4.1 Albumin/Globulin Ratio 0.341 Vancomycin Level Trough 13.3 ug/mL Blood Gas Sample Site RT RADIAL ARTERY Blood Gas pH 7.226 Blood Gas PCO2 87.6 mmHg Blood Gas PO2 41.1 mmHg Blood Gas HCO3 35.5 mmol/L Blood Gas Base Excess 4.0 mmol/L Vince Test POSITIVE Arterial Blood Oxygen Saturation 70.0 % Deoxyhemoglobin 29.5 % Carboxyhemoglobin 1.3 % Methemoglobin 0.5 % Total Hemoglobin 16.8 % Total Oxygen Concentration 16.2 % Blood Gas Temperature 37 Oxygen Delivery Method (LAB) VENTILATOR Blood Gas Vent Mode AC Blood Gas Vent Rate 22 FiO2 100 % Blood Gas Tidal Volume 550 ML Blood Gas PEEP 12.0 CMH2O Total Carbon Dioxide 38.2 mmol/L Current Medications Medications (Trade) Dose Ordered Sig/Estuardo Route PRN Reason Start Time Stop Time Status Last Admin Dose Admin Enoxaparin Sodium (Lovenox) 40 mg DAILY SQ 08/31/20 09:00 09/04/20 11:47 DC 09/04/20 09:00 Remdesivir 200 mg/ Sodium Chloride 140 ml @ 120.69 mls/ hr OT IV 08/31/20 09:30 08/31/20 10:40 DC 08/31/20 09:38 Lorazepam (Ativan) 1 mg Q3HR PRN IV ANXIETY 08/31/20 05:00 09/01/20 10:41 DC 09/01/20 06:00 Azithromycin 500 mg/Sodium Chloride 250 ml @ 175 mls/hr Q24HRS IV 08/31/20 05:00 09/04/20 08:00 DC 09/04/20 04:12 Ceftriaxone Sodium 1000 mg/ Sodium Chloride 100 ml @ 100 mls/hr Q24HRS IV 08/31/20 05:00 09/05/20 09:27 DC 09/05/20 04:49 Lorazepam (Ativan) 1 mg STAT STAT IV 08/31/20 05:16 08/31/20 08:31 DC 08/31/20 05:34 Sodium Chloride 100 ml @ ud STK-MED ONCE IV 08/31/20 05:18 08/31/20 05:21 DC Ceftriaxone Sodium (Rocephin) 1,000 mg STK-MED ONCE .ROUTE 08/31/20 05:19 08/31/20 05:21 DC Sodium Chloride 500 ml @ ud STK-MED ONCE IV 08/31/20 05:37 08/31/20 05:40 DC Morphine Sulfate (Morphine Sulfate) 0.5 mg STAT ONCE IV 08/31/20 06:15 08/31/20 08:44 DC 08/31/20 06:15 Albuterol/ Ipratropium (Duo 0.5-3(2.5) Mg/3 ml) 3 ml RTQ6H IH 08/31/20 08:00 09/30/20 07:59 09/11/20 09:37 Albuterol Sulfate (Ventolin) 2.5 mg RTQ4 PRN IH WHEEZING 08/31/20 08:00 09/30/20 07:59 09/05/20 09:00 Furosemide (Lasix) 40 mg STAT STAT IV 08/31/20 07:55 08/31/20 08:44 DC 08/31/20 08:08 Morphine Sulfate (Morphine Sulfate) 0.5 mg OT STAT IV 08/31/20 07:56 08/31/20 08:44 DC 08/31/20 08:25 Lorazepam (Ativan) 0.5 mg STAT STAT IV 08/31/20 07:56 08/31/20 08:43 DC 08/31/20 08:23 Sodium Chloride 250 ml @ ud STK-MED ONCE IV 08/31/20 08:03 08/31/20 08:05 DC Sodium Chloride 100 ml @ ud STK-MED ONCE IV 08/31/20 09:34 08/31/20 09:36 DC Remdesivir 100 mg/ Sodium Chloride 120 ml @ 111.111 mls/hr Q24HRS IV 09/01/20 09:00 09/05/20 09:23 DC 09/05/20 08:39 Aspirin (Aspirin) 81 mg DAILY PO 09/01/20 09:00 10/01/20 08:59 09/11/20 08:50 Famotidine (Pepcid) 20 mg BID PO 08/31/20 21:00 09/01/20 22:57 DC 09/01/20 21:00 Ascorbic Acid (Vitamin C) 500 mg BID PO 08/31/20 21:00 09/30/20 20:59 09/11/20 08:50 Zinc Sulfate (Zinc Sulfate) 220 mg DAILY PO 08/31/20 21:00 09/30/20 20:59 09/11/20 08:50 Guaifenesin (Robitussin Dm) 5 ml Q4HR PRN PO COUGH 09/01/20 01:30 09/01/20 10:41 DC Morphine Sulfate (Morphine Sulfate) 2 mg STK-MED ONCE .ROUTE 09/01/20 03:32 09/01/20 03:34 DC Morphine Sulfate (Morphine Sulfate) 0.5 mg STAT STAT IV 09/01/20 03:33 09/01/20 03:35 DC 09/01/20 03:33 Sodium Chloride 100 ml @ ud STK-MED ONCE IV 09/01/20 05:28 09/01/20 05:30 DC Sodium Chloride 250 ml @ ud STK-MED ONCE IV 09/01/20 05:29 09/01/20 05:30 DC Ceftriaxone Sodium (Rocephin) 1,000 mg STK-MED ONCE .ROUTE 09/01/20 05:29 09/01/20 05:31 DC Benzonatate (Tessalon Perle) 100 mg Q2 PRN PO COUGH 09/01/20 06:00 09/01/20 05:50 DC Dexmedetomidine HCl 200 mcg/ Sodium Chloride 50 ml @ 0 mls/hr IV 09/01/20 06:00 09/01/20 08:24 DC Sodium Chloride 250 ml @ ud STK-MED ONCE IV 09/01/20 05:37 09/01/20 05:39 DC Benzonatate (Tessalon Perle) 200 mg TID PRN PO COUGH 09/01/20 06:00 09/01/20 10:41 DC 09/01/20 06:00 Acetaminophen/ Hydrocodone Bitart ([place] 5mg) 1 ea TID PRN PO PAIN 4 - 6 09/01/20 06:00 09/01/20 10:41 DC Dexmedetomidine HCl 400 mcg/ Sodium Chloride 100 ml @ 0 mls/hr IV 09/01/20 08:30 09/04/20 19:42 DC 09/04/20 08:49 Sodium Chloride 1,000 ml @ ud STK-MED ONCE .ROUTE 09/01/20 10:16 09/01/20 10:18 DC Sodium Chloride 1,000 ml @ ud STK-MED ONCE .ROUTE 09/01/20 10:18 09/01/20 10:20 DC Propofol 100 ml @ ud STK-MED ONCE IV 09/01/20 10:28 09/01/20 10:30 DC Vecuronium [place] (Norcuron) 10 mg STK-MED ONCE .ROUTE 09/01/20 10:29 09/01/20 10:31 DC Propofol (Diprivan) Diprivan IV infusion tritra... TITRATE PRN IV sedation 09/01/20 10:30 10/01/20 10:29 09/10/20 16:36 Propofol (Diprivan) STAT STAT IV 09/01/20 10:29 09/01/20 10:38 DC 09/01/20 11:50 Vecuronium [place] (Norcuron) 5 mg Q1HR IV 09/01/20 11:00 09/04/20 11:10 DC 09/04/20 06:28 Vecuronium [place] (Norcuron) 2 mg Q30MIN PRN IV paralysis 09/01/20 11:00 09/08/20 11:19 DC 09/04/20 10:00 Fentanyl Citrate 1000 mcg/Sodium Chloride 100 ml @ 0 mls/hr IV 09/01/20 11:30 09/07/20 20:40 DC 09/07/20 15:43 Sterile Water (Water) 1,000 ml STK-MED ONCE .ROUTE 09/01/20 13:55 09/01/20 13:57 DC Propofol (Diprivan) 200 mg STK-MED ONCE IV 09/01/20 12:00 09/01/20 21:42 DC Rocuronium [place] (Zemuron) 100 mg STK-MED ONCE IV 09/01/20 12:00 09/01/20 21:42 DC Succinylcholine Chloride (Quelicin) 100 mg STK-MED ONCE IV 09/01/20 12:00 09/01/20 21:42 DC Famotidine (Pepcid) 20 mg BID IV 09/02/20 09:00 10/02/20 08:59 09/11/20 08:50 Famotidine (Pepcid) 20 mg STK-MED ONCE IV 09/02/20 07:57 09/02/20 07:59 DC Albuterol/ Ipratropium (Duoneb 0.5 Mg-3 Mg/3 ml Soln) 3 ml STK-MED ONCE IH 09/02/20 08:37 09/02/20 08:39 DC Sterile Water (Water) 1,000 ml STK-MED ONCE .ROUTE 09/03/20 14:28 09/03/20 14:30 DC Sodium Chloride 500 ml @ ud STK-MED ONCE IV 09/04/20 09:35 09/04/20 09:37 DC Vecuronium [place] (Norcuron) 15 mg Q1HR PRN IV vent dsynchrony or hypoxia 09/04/20 11:30 10/04/20 11:29 09/11/20 10:00 Enoxaparin Sodium (Lovenox) 40 mg BID SQ 09/04/20 21:00 09/08/20 10:44 DC 09/08/20 09:36 Sterile Water (Water) 1,000 ml STK-MED ONCE .ROUTE 09/04/20 17:03 09/04/20 17:05 DC Dexmedetomidine HCl 800 mcg/ Sodium Chloride 200 ml @ 0 mls/hr IV 09/04/20 20:00 09/07/20 20:39 DC 09/07/20 11:26 Vancomycin HCl 1.5 gm/Sodium Chloride 300 ml @ 175 mls/hr Q12H IV 09/05/20 11:00 09/07/20 18:15 DC 09/07/20 10:46 Cefepime HCl 2 gm/ Sodium Chloride 100 ml @ 100 mls/hr Q8H IV 09/05/20 09:30 09/07/20 11:14 DC 09/07/20 09:27 Vecuronium [place] (Norcuron) 10 mg STK-MED ONCE .ROUTE 09/05/20 12:00 09/05/20 16:06 DC Sodium Chloride 500 ml @ ud STK-MED ONCE IV 09/05/20 21:36 09/05/20 21:38 DC Piperacillin Sod/ Tazobactam Sod 3.375 gm/Sodium Chloride 100 ml @ 100 mls/hr Q6H IV 09/07/20 11:30 09/07/20 12:27 DC Piperacillin Sod/ Tazobactam Sod 3.375 gm/Sodium Chloride 100 ml @ 100 mls/hr Q6H IV 09/07/20 13:00 10/07/20 12:59 09/11/20 08:49 Vancomycin HCl 1.5 gm/Sodium Chloride 300 ml @ 175 mls/hr Q8H IV 09/07/20 20:00 09/08/20 14:57 DC 09/08/20 13:30 Sodium Chloride 500 ml @ ud STK-MED ONCE IV 09/07/20 20:09 09/07/20 20:10 DC Dexmedetomidine HCl 1600 mcg/ Sodium Chloride 400 ml @ 0 mls/hr IV 09/07/20 21:00 10/07/20 20:59 09/11/20 00:02 Fentanyl Citrate 2000 mcg/Sodium Chloride 200 ml @ 0 mls/hr IV 09/07/20 21:00 09/07/20 20:41 DC Fentanyl Citrate 2000 mcg/Sodium Chloride 200 ml @ 0 mls/hr IV 09/07/20 21:00 10/07/20 20:59 09/11/20 08:49 Enoxaparin Sodium (Lovenox) 90 mg BID SQ 09/08/20 21:00 10/08/20 20:59 09/11/20 08:49 Furosemide (Lasix) 20 mg STAT STAT IV 09/08/20 10:42 09/08/20 11:31 DC 09/08/20 11:44 Furosemide (Lasix) 20 mg STK-MED ONCE .ROUTE 09/08/20 10:52 09/08/20 10:54 DC Dextrose 1,000 ml @ 100 mls/hr Q10H ONCE IV 09/08/20 14:30 09/09/20 00:29 DC 09/08/20 15:10 Vancomycin HCl 1 gm/Sodium Chloride 300 ml @ 175 mls/hr Q8H IV 09/08/20 21:00 09/09/20 08:39 DC 09/09/20 04:50 Sterile Water (Water) 1,000 ml STK-MED ONCE .ROUTE 09/09/20 04:59 09/09/20 05:01 DC Vancomycin HCl 1 gm/Sodium Chloride 250 ml @ 145.843 mls/hr Q8H IV 09/09/20 08:39 09/09/20 08:40 DC Vancomycin HCl 1 gm/Sodium Chloride 250 ml @ 175 mls/hr Q8H IV 09/09/20 13:00 10/09/20 12:59 09/11/20 05:00 Potassium Chloride/Sodium Chloride 1,000 ml @ 100 mls/hr Q10H IV 09/09/20 11:30 09/10/20 12:26 DC 09/09/20 21:30 Furosemide (Lasix) 20 mg STAT STAT IV 09/09/20 12:29 09/09/20 12:32 DC 09/09/20 12:29 Furosemide (Lasix) 40 mg STAT STAT IV 09/10/20 06:17 09/10/20 08:18 DC 09/10/20 06:17 Potassium Chloride/Dextrose 1,000 ml @ 100 mls/hr Q10H IV 09/10/20 12:30 10/10/20 12:29 09/11/20 08:49 Albuterol/ Ipratropium (Duoneb 0.5 Mg-3 Mg/3 ml Soln) 3 ml STK-MED ONCE 09/10/20 14:59 09/10/20 15:01 DC Sodium Chloride 500 ml @ ud STK-MED ONCE IV 09/10/20 20:38 09/10/20 20:40 DC Acetaminophen (Ofirmev) 1,000 mg Q8H PRN IV FEVER 09/11/20 08:00 10/11/20 07:59 Acetaminophen (Ofirmev) 1,000 mg OT IV 09/11/20 08:30 09/11/20 08:31 DC 09/11/20 08:21 Furosemide (Lasix) 20 mg STAT STAT IV 09/11/20 08:31 09/11/20 08:38 DC 09/11/20 08:50 PROCEDURE:CHEST 1 VIEW COMPARISON:[facility], CR, XRAY CHEST SINGLE VW, 09/06/2020, 08:24 AM. [facility], CR, XRAY CHEST SINGLE VW, 09/04/2020, 07:26 AM. INDICATIONS:COVID PNA, Intubation FINDINGS: LUNGS/PLEURA:Endotracheal tube is again high riding terminating approximately 7.5 cm from the chuy. More confluent opacities are seen in bilateral lungs. Scattered adjacent ground-glass opacities. No large pleural effusion. CARDIAC:Normal cardiac silhouette and normal pulmonary vascularity. MEDIASTINUM:No visible mass or adenopathy. BONES:Thoracic spondylosis. OTHER:NGT with side hole projecting over the gastric bubble. Possible left midline catheter. CONCLUSION: 1. Worsened confluent opacities in bilateral lungs compatible with worsening COVID-19 pneumonia. 2. High-riding endotracheal tube. Assessment & Plan: Assessment Hospital course: Pt is a 54 y/o M with PMHx of HTN, HLD, obesity, and anxiety. He was admitted the morning of 08/31 as a transfer from OSH for acute hypoxemic respiratory failure and COVID-19. He was started on full spectrum treatment for COVID-19 with IV Decadron, Azithromycin, Remdesivir, CCP, Zinc, and Vitamin C. On arrival to this facility, he was in mild to moderate respiratory distress and required continuous CPAP to maintain Oxygenation. He remained relatively stable throughout 08/31, but started becoming more fatigued the evening of 08/31, and was moved to the ICU for closer monitoring. In the ICU, he was continued on CPAP in an effort to avoid intubation. However, he continued to have difficulty with NIPPV and was frequently dyssynchronous, causing further desaturations. He was also noted to have Sub q emphysema in his chest and neck, which was concerning for barotrauma due to continued dyssynchrony. The morning of 09/01, he was noted to be in worsened respiratory distress and there was concern for impending respiratory collapse due to fatigue. The patient and I discussed intubation and he agreed to be electively intubated before he decompensated completely. The on- call BRICK TOSSER was called and the patient was subsequently intubated without compl ication. He was started on Propofol and fentanyl drips and paralyzed with IV vecuronium pushes. He has tolerated mechanical ventilation rather well and his O2 sats and PaO2 have improved markedly. Prior to intubation his ABG showed normal pH and a PaO2 in the 50's. His PaO2 improved to 70's within the hour, and was 150's on his most recent ABG the evening of 09/01. Of note, I did discuss the possibility of prolonged intubation, need for tracheostomy, and whether this is something that he would want done. He agreed that tracheostomy and long-term vent weaning is something that he would be ok with if it came down to it. Since intubation, he has improved markedly. He was continued on treatment for COVID with Remdesivir, steroids, and azithromycin and has completed his courses of each of these. His inflammtory markers have been downtrending with the exception of D-dimer which is uptrending slowly. His WBC was previously trending down, but increased sharply from 15 to 19 today. He has also been fevering so his Abx were broadened out to Vanc/Cefepime this AM and repeat Blood and sputum cultures were obtained. 09/06/2020: he remained stable. still have low grade fever. blood cultures are negative. 09/07: o2 level improved with prone position. still require high vent settings. 09/08: stable. he will be placed in prone position again today. 09/09: stable. he is running fever. CXR showed worsening air space disease. 09/10: his condition deteriorated. O2 sat dropped with high vent setting. he is made DNR. 09/11: poor respiratory status. he benefited from prone position but still sat <90%. he developed fever. Assessments: Neuro: sedated. CV:HD stable. # Hx HTN but off lisinopril due to soft BP. Pulmo: #Acute respiratory failure/ARDS on mechanical ventilation: managed by ICU telemedicine.Keep Pplat < 30 to limit risk of pneumothorax and barotrauma. #COVID-19 pneumonia: He is still on high setting, O2 sat dropping below 90%. he is now in prone position with O2 sat 80s%. CXR showed worsening air space disease.possibly superimposed with HAP. Procalcitonin is normal. covid markers still high. - C/w IV dexamethasone 6 mg daily. - Pt has completed course of Remdesivir. - s/p 1u CCP - c/w Vanc day 7 - c/w Zosyn day 5(was on Cefepime) - lasix Iv 20 mg. - keep in prone position for 16 hr/24 hrs. - continue Propofol/Fentanyl for sedation/analgesia; precedex is available for backup sedation if needed - continue IV Vecuronium 15mg q1h + IV Vec 2mg q30min PRN - trend COVID markers q48h - CXR q48h and PRN Pneumomediastinum without pneumothorax: stable. GI:he only got one bolus of Tf yesterday. today he did not tolerate TF when supine. #Elevated LFT: due to viral infection, meds, congested liver. # hypoalbuminemia: malnutrition. : no issues endo: BG normal. heme: #High D.Dimer: he is on Lovenox 90 mg BID due to high D.Dimer. D.Dimer is higher today. he is too unstable to get CTA chest. ID: #Sepsis: ongoing fever and leukocytosis: Influenza A&B negative, blood culture negative. urine Cx negative. FEN: Dehydration:he is negative by 3 L last 24 hrs. input is limited by inability to continue TF. he is third spacing. - stop salomon D5NS with K -start D5NS 50 cc/hr. - will encourage NGT water when supine. Hypokalemia:resolved. corrected calcium is normal. Sedation: propofol/precedex Analgesia: Fent VTE ppx: Lovenox. GI ppx: Pepcid Diet: TF when supine. CODE: DNR prognosis is poor. His Amanda Sparks ([phone]) was at his bedside today and she got updates. Time Spent: > 40 minutes between evaluation, coordination of care, and documentation ARMANDO OLIVARES MD Sep 11, 2020 11:12
[2020-09-11] MEDS ORDERED: D5NS 1,000 ML IV SCH (11:30)
--- NOTE | 2020-09-11 12:40 | NUR ---
HYPOTENSION LOW BP REPORTED TO DR. OLIVARES. ORDERS RECEIVED FOR NS 500ML BOLUS. RBVO
[2020-09-11] MEDS ORDERED: NS 500ML 500 ML IV ONE (13:00)
--- NOTE | 2020-09-11 13:10 | NUR ---
LEVOPHED FAMILY REQUESTED "EVERYTHING BE DONE TO KEEP PT ALIVE." DR. OLIVARES NOTIFIED. ORDERS RECEIVED TO START LEVOPHED PER PROTOCOL AFTER BOLUS HAS INFUSED. RBTO
[2020-09-11] MEDS ORDERED: LEVOPHED 8 MG in NS 250ML 250 ML IV SCH (13:30)
--- NOTE | 2020-09-11 13:35 | PRM.PN ---
Assessment & Plan Problems/DX: (1) ARDS (adult respiratory distress syndrome) (2) Pneumonia due to COVID-19 virus Provider Note: unable to oxygenate proned on the vent extremis at [facility] care DNR ANGELIQUE COOK MD Sep 11, 2020 13:35
--- NOTE | 2020-09-11 14:15 | NUR ---
LEVOPHED LEVOPHED INCREASED TO 4MCG/MIN PER PROTOCOL
[2020-09-11] MEDS: D5NS 1,000 ML IV SCH (14:24)
--- NOTE | 2020-09-11 14:33 | NUR ---
LEVOPHED LEVOPHED STARTED AT THIS TIME PER PROTOCOL @ 2MCG/MIN
--- NOTE | 2020-09-11 14:35 | NUR ---
LEVOPHED LEVOPHED INCREASED TO 6MCG/MIN PER PROTOCOL
--- NOTE | 2020-09-11 14:39 | NUR ---
LEVOPHED LEVOPHED INCREASED TO 8MCG/MIN PER PROTOCOL
--- NOTE | 2020-09-11 14:50 | NUR ---
LEVOPHED LEVOPHED INCREASED TO 10MCG/MIN PER PROTOCOL
--- NOTE | 2020-09-11 14:55 | NUR ---
LEVOPHED LEVOPHED INCREASED TO 12MCG/HR PER PROTOCOL
[2020-09-11] MEDS: DIPRIVAN IV PRN (15:03)
--- NOTE | 2020-09-11 15:10 | NUR ---
LEVOPHED LEVOPHED INCREASED TO 14MCG/MIN PER PROTOCOL
[2020-09-12] VITALS (82 sets, daily range): BP systolic 92–181; BP diastolic 39–95
[2020-09-12] MEDS: ZOSYN 3.375 GM 3.375 GM in NS 100ML 100 ML IV SCH ×2 (00:54→07:00)
[2020-09-12] MEDS ORDERED: LASIX IV STA ×2 (04:02→11:00)
--- NOTE | 2020-09-12 04:03 | NUR ---
notified that urine output steadily declining, 15 ml/hr x 2 hours. Received order for 20 mg Lasix, IV, one time.
[2020-09-12] MEDS: DIPRIVAN IV PRN ×2 (04:04→19:30)
[2020-09-12] MEDS ORDERED: LASIX ONE (04:04)
[2020-09-12 04:57] LABS: MEAN CORP HGB 31.9 pg (26-34); RED CELL DISTRIBUTION WIDTH 13.1 % (11.5-14.5)
[2020-09-12] MEDS: SUBLIMAZE 2,000 MCG in NS 250ML 160 ML IV SCH (05:06)
--- NOTE | 2020-09-12 05:30 | NUR ---
Dr. Pickens notified that patient's urine output has been 0 since Lasix administration. MD to defer to day shift team for possible albumin replacement and change of diuretic.
[2020-09-12 06:25] LABS: CALCIUM 7.8 mg/dL (8.4-10.5); CARBON DIOXIDE 26.7 mmol/L (20.0-32)
--- NOTE | 2020-09-12 07:07 | NUR ---
Report given to AM RN, updates given and all questions answered
[2020-09-12] MEDS: D5NS 1,000 ML IV SCH (07:30)
[2020-09-12] MEDS ORDERED: DEXTROSE 50%-WATER SYRINGE IV STA (07:39)
[2020-09-12] MEDS ORDERED: SPS PO STA (07:39)
[2020-09-12] MEDS ORDERED: CALCIUM GLUCONATE IV STA (07:39)
[2020-09-12] MEDS ORDERED: HUMULIN R IV ONE (08:00)
[2020-09-12 08:41] LABS: ABG PCO2 64.4 mmHg (35.0-45.0); ABG PH 7.221 (7.350-7.450); HCO3act 25.8 mmol/L (22.0-26.0); pO2 47.9 mmHg (80.0-100.0)
[2020-09-12] MEDS: LOVENOX SQ SCH ×2 (09:00→21:00)
[2020-09-12] MEDS: ZINC SULFATE PO SCH (09:00)
[2020-09-12] MEDS: PEPCID IV SCH ×2 (09:00→21:00)
[2020-09-12] MEDS: VITAMIN C PO SCH ×2 (09:00→21:00)
[2020-09-12] MEDS: ASPIRIN PO SCH (09:00)
[2020-09-12] MEDS: DEXAMETHASONE 10 MG/ML VIAL IV SCH (09:00)
[2020-09-12] MEDS: DUO 0.5-3(2.5) MG/3 ML IH SCH ×3 (10:52→22:21)
--- NOTE | 2020-09-12 11:03 | PRM.PN ---
PROGRESS NOTE S/O/A/P Subjective: unobtainable. last 12 hrs events: Respiratory status still poor.he desaturated below 70% for hours during the day yesterday but then improved to 70-80s% over the night. he developed shock and was treated with levophed and IVF. levophed weaned off this morning. No urinary output. he was given IVF and lasix. ROS: unobtainable. Objective Vital Sign - Last 24 Hours 09/11/20 09/11/20 09/11/20 09/11/20 11:07 11:37 12:07 12:15 Temp 102.0 102.0 101.5 Pulse 125 110 98 108 Resp 13 22 22 25 B/P (MAP) 133/80 (97) 86/44 (58) 71/39 (50) Pulse Ox 81 78 77 80 FiO2 100 09/11/20 09/11/20 09/11/20 09/11/20 12:30 12:37 13:07 13:38 Temp 101.1 100.8 100.2 Pulse 80 73 67 Resp 25 B/P (MAP) 75/40 (52) 73/39 (50) 99/35 (56) Pulse Ox 65 61 74 O2 Delivery Mechanical Ventilator 09/11/20 09/11/20 09/11/20 09/11/20 13:46 13:51 13:57 14:11 Temp 100.2 100.0 100.0 99.7 Pulse 44 61 60 58 Resp 22 B/P (MAP) 65/27 (40) 80/38 (52) 87/31 (49) 77/41 (53) Pulse Ox 47 38 45 38 09/11/20 09/11/20 09/11/20 09/11/20 14:26 14:37 14:41 14:47 Temp 99.7 99.5 Pulse 76 58 61 81 Resp 22 B/P (MAP) 70/32 (45) 67/42 (50) 82/44 (57) 73/43 (53) Pulse Ox 52 45 52 68 09/11/20 09/11/20 09/11/20 09/11/20 14:56 14:56 15:11 15:26 Temp 99.1 Pulse 67 60 71 84 Resp 22 B/P (MAP) 66/43 (51) 61/26 (38) 91/58 (69) Pulse Ox 59 90 55 57 FiO2 100 09/11/20 09/11/20 09/11/20 09/11/20 15:41 15:56 16:12 16:15 Temp 99.1 99.3 99.3 Pulse 92 90 90 100 Resp B/P (MAP) 121/68 (85) 103/72 (82) 100/60 (73) Pulse Ox 84 84 82 77 09/11/20 09/11/20 09/11/20 09/11/20 16:15 16:15 16:26 16:33 Temp 99.5 Pulse 100 100 90 Resp B/P (MAP) 105/64 (78) Pulse Ox 77 77 90 O2 Delivery Mechanical Ventilator FiO2 90 09/11/20 09/11/20 09/11/20 09/11/20 16:41 16:56 17:11 17:26 Temp 99.7 99.7 99.9 100.0 Pulse 90 91 94 94 Resp B/P (MAP) 124/60 (81) 102/66 (78) 120/69 (86) 120/63 (82) Pulse Ox 84 82 84 85 09/11/20 09/11/20 09/11/20 09/11/20 17:41 17:56 18:12 18:26 Temp 100.0 100.2 100.4 100.4 Pulse 101 95 99 56 Resp B/P (MAP) 126/67 (86) 118/75 (89) 102/46 (64) 64/33 (43) Pulse Ox 83 83 84 82 09/11/20 09/11/20 09/11/20 09/11/20 18:41 18:56 19:11 19:26 Temp 100.6 100.6 100.8 100.9 Pulse 97 95 99 102 Resp 13 9 22 B/P (MAP) 101/66 (78) 137/80 (99) 154/94 (114) 143/78 (99) Pulse Ox 80 85 88 87 09/11/20 09/11/20 09/11/20 09/11/20 19:41 19:56 20:00 20:00 Temp 101.1 101.3 Pulse 101 100 101 104 Resp B/P (MAP) 141/70 (93) 141/76 (97) Pulse Ox 86 87 88 89 O2 Delivery Mechanical Ventilator FiO2 100 09/11/20 09/11/20 09/11/20 09/11/20 20:00 20:00 20:00 20:00 Pulse 101 110 101 Resp Pulse Ox 86 85 86 O2 Delivery Mechanical Ventilator FiO2 90 100 09/11/20 09/11/20 09/11/20 09/11/20 20:11 20:26 20:56 21:11 Temp 101.5 101.7 101.2 Pulse 100 101 100 107 Resp B/P (MAP) 138/81 (100) 143/83 (103) 133/79 (97) 137/74 (95) Pulse Ox 86 86 86 86 09/11/20 09/11/20 09/11/20 09/11/20 21:26 21:41 21:56 22:11 Temp 101.5 101.4 Pulse 107 106 107 106 Resp B/P (MAP) 134/72 (92) 138/73 (94) 123/69 (87) 120/73 (89) Pulse Ox 87 86 86 85 09/11/20 09/11/20 09/11/20 09/11/20 22:15 22:26 22:41 22:56 Temp 101.0 Pulse 104 104 102 102 Resp B/P (MAP) 121/63 (82) 111/66 (81) 119/63 (81) Pulse Ox 87 87 87 87 FiO2 90 09/11/20 09/11/20 09/11/20 09/12/20 23:11 23:41 23:56 00:00 Temp 100.9 100.6 Pulse 100 99 98 110 Resp B/P (MAP) 112/65 (81) 114/67 (83) 118/69 (85) Pulse Ox 87 86 86 85 FiO2 100 09/12/20 09/12/20 09/12/20 09/12/20 00:00 00:11 00:26 00:56 Temp 100.5 Pulse 98 98 98 Resp B/P (MAP) 125/69 (87) 128/78 (95) 122/71 (88) Pulse Ox 88 87 88 O2 Delivery Mechanical Ventilator 1209/12/20 09/12/20 09/12/20 01:00 01:11 01:26 01:41 Temp 100.4 Pulse 108 99 98 97 Resp B/P (MAP) 114/67 (83) 121/74 (90) 124/73 (90) Pulse Ox 87 85 87 88 FiO2 90 09/12/20 09/12/20 09/12/20 09/12/20 01:56 02:11 02:15 02:15 Temp 100.4 Pulse 98 97 95 95 Resp B/P (MAP) 97/57 (70) 92/39 (56) Pulse Ox 82 80 89 85 FiO2 90 09/12/20 09/12/20 09/12/20 09/12/20 02:15 02:26 02:41 02:56 Pulse 95 95 99 101 Resp B/P (MAP) 100/60 (73) 119/65 (83) 116/64 (81) Pulse Ox 85 83 89 87 09/12/20 09/12/20 09/12/20 09/12/20 03:11 03:41 03:56 04:00 Temp 100.3 Pulse 101 100 99 Resp B/P (MAP) 116/69 (85) 132/58 (82) 114/50 (71) Pulse Ox 88 85 82 O2 Delivery Mechanical Ventilator 09/12/20 09/12/20 09/12/20 09/12/20 04:00 04:02 04:11 04:26 Temp 100.1 Pulse 94 97 96 Resp B/P (MAP) 114/50 119/70 (86) 113/70 (84) Pulse Ox 86 83 83 FiO2 100 09/12/20 09/12/20 09/12/20 09/12/20 04:40 04:41 04:56 05:11 Temp 99.9 Pulse 96 95 96 96 Resp B/P (MAP) 121/58 (79) 121/59 (79) 120/70 (87) Pulse Ox 85 84 83 83 FiO2 90 09/12/20 09/12/20 09/12/20 09/12/20 05:26 05:41 05:56 06:11 Temp 99.8 Pulse 94 95 93 92 Resp B/P (MAP) 113/68 (83) 114/66 (82) 115/67 (83) 112/66 (81) Pulse Ox 83 83 83 84 09/12/20 09/12/20 06:26 06:41 Pulse 93 91 Resp 22 22 B/P (MAP) 113/68 (83) 119/60 (79) Pulse Ox 84 85 Intake and Output 09/12/20 07:00 Intake Total 6195.7 ml Output Total 500 ml Balance 5695.7 ml Physical exam: General: no distress. Neuro:deeply sedated. Heart: Normal S1, Normal S2, No murmurs. Abdomen: Normal bowel sounds, Soft Lungs: markedly decrease breath sounds b/l . Lungs are full of rales. no wheezes. Skin: multiple abrasions. Extremities: ++edema. palpable pulses. cold feet with bluish discoloration on heels. Laboratory Tests Test 09/11/20 16:29 09/11/20 23:49 09/12/20 04:22 09/12/20 05:25 Bedside Glucose 68 92 116 White Blood Count 15.2 10^3/uL Red Blood Count 3.89 10^6/uL Hemoglobin 12.4 g/dL Hematocrit 36.7 % Mean Corpuscular Volume 94.3 fL Mean Corpuscular Hemoglobin 31.9 pg Mean Corpuscular Hemoglobin Concent 33.8 g/dL Red Cell Distribution Width 13.1 % Platelet Count 98 10^3/uL Mean Platelet Volume 9.9 fL Sodium Level 137 mmol/L Potassium Level 5.4 mmol/L Chloride Level 103.0 mmol/L Carbon Dioxide Level 26.7 mmol/L Anion Gap 12.7 Blood Urea Nitrogen 41 mg/dL Creatinine 2.28 mg/dL Estimated GFR () 36.3 Est GFR (CKD-EPI)(Non-Afr [place]z) 30.0 BUN/Creatinine Ratio 17.0 Glucose Level 107 mg/dL Calcium Level 7.8 mg/dL Total Bilirubin 1.4 mg/dL Aspartate Amino Transf (AST/SGOT) 4222 U/L Alanine Aminotransferase (ALT/SGPT) 4819 U/L Alkaline Phosphatase 110 U/L Total Protein 5.1 g/dL Albumin 1.2 g/dL Globulin 3.9 Albumin/Globulin Ratio 0.307 Vancomycin Level Trough 47.2 ug/mL Test 09/12/20 08:00 Blood Gas Sample Site LEFT RADIAL ARTERY Blood Gas pH 7.221 Blood Gas PCO2 64.4 mmHg Blood Gas PO2 47.9 mmHg Blood Gas HCO3 25.8 mmol/L Blood Gas Base Excess -3.0 mmol/L Vince Test N/A Arterial Blood Oxygen Saturation 77.4 % Deoxyhemoglobin 22.5 % Carboxyhemoglobin 0.4 % Methemoglobin 0.0 % Total Hemoglobin 12.9 % Total Oxygen Concentration 14.0 % Blood Gas Temperature 37 Oxygen Delivery Method (LAB) vent Blood Gas Vent Mode ac Blood Gas Vent Rate 22 FiO2 100 % Blood Gas Tidal Volume 500 ML Blood Gas PEEP 16.0 CMH2O Total Carbon Dioxide 27.8 mmol/L Current Medications Medications (Trade) Dose Ordered Sig/Estuardo Route PRN Reason Start Time Stop Time Status Last Admin Dose Admin Enoxaparin Sodium (Lovenox) 40 mg DAILY SQ 08/31/20 09:00 09/04/20 11:47 DC 09/04/20 09:00 Remdesivir 200 mg/ Sodium Chloride 140 ml @ 120.69 mls/ hr OT IV 08/31/20 09:30 08/31/20 10:40 DC 08/31/20 09:38 Lorazepam (Ativan) 1 mg Q3HR PRN IV ANXIETY 08/31/20 05:00 09/01/20 10:41 DC 09/01/20 06:00 Azithromycin 500 mg/Sodium Chloride 250 ml @ 175 mls/hr Q24HRS IV 08/31/20 05:00 09/04/20 08:00 DC 09/04/20 04:12 Ceftriaxone Sodium 1000 mg/ Sodium Chloride 100 ml @ 100 mls/hr Q24HRS IV 08/31/20 05:00 09/05/20 09:27 DC 09/05/20 04:49 Lorazepam (Ativan) 1 mg STAT STAT IV 08/31/20 05:16 08/31/20 08:31 DC 08/31/20 05:34 Sodium Chloride 100 ml @ ud STK-MED ONCE IV 08/31/20 05:18 08/31/20 05:21 DC Ceftriaxone Sodium (Rocephin) 1,000 mg STK-MED ONCE .ROUTE 08/31/20 05:19 08/31/20 05:21 DC Sodium Chloride 500 ml @ ud STK-MED ONCE IV 08/31/20 05:37 08/31/20 05:40 DC Morphine Sulfate (Morphine Sulfate) 0.5 mg STAT ONCE IV 08/31/20 06:15 08/31/20 08:44 DC 08/31/20 06:15 Albuterol/ Ipratropium (Duo 0.5-3(2.5) Mg/3 ml) 3 ml RTQ6H IH 08/31/20 08:00 09/30/20 07:59 09/11/20 21:15 Albuterol Sulfate (Ventolin) 2.5 mg RTQ4 PRN IH WHEEZING 08/31/20 08:00 09/30/20 07:59 09/05/20 09:00 Furosemide (Lasix) 40 mg STAT STAT IV 08/31/20 07:55 08/31/20 08:44 DC 08/31/20 08:08 Morphine Sulfate (Morphine Sulfate) 0.5 mg OT STAT IV 08/31/20 07:56 08/31/20 08:44 DC 08/31/20 08:25 Lorazepam (Ativan) 0.5 mg STAT STAT IV 08/31/20 07:56 08/31/20 08:43 DC 08/31/20 08:23 Sodium Chloride 250 ml @ ud STK-MED ONCE IV 08/31/20 08:03 08/31/20 08:05 DC Sodium Chloride 100 ml @ STK-MED ONCE IV 08/31/20 09:34 08/31/20 09:36 DC Remdesivir 100 mg/ Sodium Chloride 120 ml @ 111.111 mls/hr Q24HRS IV 09/01/20 09:00 09/05/20 09:23 DC 09/05/20 08:39 Aspirin (Aspirin) 81 mg DAILY PO 09/01/20 09:00 10/01/20 08:59 09/11/20 08:50 Famotidine (Pepcid) 20 mg BID PO 08/31/20 21:00 09/01/20 22:57 DC 09/01/20 21:00 Ascorbic Acid (Vitamin C) 500 mg BID PO 08/31/20 21:00 09/30/20 20:59 09/11/20 20:50 Zinc Sulfate (Zinc Sulfate) 220 mg DAILY PO 08/31/20 21:00 09/30/20 20:59 09/11/20 08:50 Guaifenesin (Robitussin Dm) 5 ml Q4HR PRN PO COUGH 09/01/20 01:30 09/01/20 10:41 DC Morphine Sulfate (Morphine Sulfate) 2 mg STK-MED ONCE .ROUTE 09/01/20 03:32 09/01/20 03:34 DC Morphine Sulfate (Morphine Sulfate) 0.5 mg STAT STAT IV 09/01/20 03:33 09/01/20 03:35 DC 09/01/20 03:33 Sodium Chloride 100 ml @ ud STK-MED ONCE IV 09/01/20 05:28 09/01/20 05:30 DC Sodium Chloride 250 ml @ ud STK-MED ONCE IV 09/01/20 05:29 09/01/20 05:30 DC Ceftriaxone Sodium (Rocephin) 1,000 mg STK-MED ONCE .ROUTE 09/01/20 05:29 09/01/20 05:31 DC Benzonatate (Tessalon Perle) 100 mg Q2 PRN PO COUGH 09/01/20 06:00 09/01/20 05:50 DC Dexmedetomidine HCl 200 mcg/ Sodium Chloride 50 ml @ 0 mls/hr IV 09/01/20 06:00 09/01/20 08:24 DC Sodium Chloride 250 ml @ ud STK-MED ONCE IV 09/01/20 05:37 09/01/20 05:39 DC Benzonatate (Tessalon Perle) 200 mg TID PRN PO COUGH 09/01/20 06:00 09/01/20 10:41 DC 09/01/20 06:00 Acetaminophen/ Hydrocodone Bitart ([place] 5mg) 1 ea TID PRN PO PAIN 4 - 6 09/01/20 06:00 09/01/20 10:41 DC Dexmedetomidine HCl 400 mcg/ Sodium Chloride 100 ml @ 0 mls/hr IV 09/01/20 08:30 09/04/20 19:42 DC 09/04/20 08:49 Sodium Chloride 1,000 ml @ ud STK-MED ONCE .ROUTE 09/01/20 10:16 09/01/20 10:18 DC Sodium Chloride 1,000 ml @ ud STK-MED ONCE .ROUTE 09/01/20 10:18 09/01/20 10:20 DC Propofol 100 ml @ ud STK-MED ONCE IV 09/01/20 10:28 09/01/20 10:30 DC Vecuronium [place] (Norcuron) 10 mg STK-MED ONCE .ROUTE 09/01/20 10:29 09/01/20 10:31 DC Propofol (Diprivan) Diprivan IV infusion tritra... TITRATE PRN IV sedation 09/01/20 10:30 10/01/20 10:29 09/12/20 04:04 Propofol (Diprivan) STAT STAT IV 09/01/20 10:29 09/01/20 10:38 DC 09/01/20 11:50 Vecuronium [place] (Norcuron) 5 mg Q1HR IV 09/01/20 11:00 09/04/20 11:10 DC 09/04/20 06:28 Vecuronium [place] (Norcuron) 2 mg Q30MIN PRN IV paralysis 09/01/20 11:00 09/08/20 11:19 DC 09/04/20 10:00 Fentanyl Citrate 1000 mcg/Sodium Chloride 100 ml @ 0 mls/hr IV 09/01/20 11:30 09/07/20 20:40 DC 09/07/20 15:43 Sterile Water (Water) 1,000 ml STK-MED ONCE .ROUTE 09/01/20 13:55 09/01/20 13:57 DC Propofol (Diprivan) 200 mg STK-MED ONCE IV 09/01/20 12:00 09/01/20 21:42 DC Rocuronium [place] (Zemuron) 100 mg STK-MED ONCE IV 09/01/20 12:00 09/01/20 21:42 DC Succinylcholine Chloride (Quelicin) 100 mg STK-MED ONCE IV 09/01/20 12:00 09/01/20 21:42 DC Famotidine (Pepcid) 20 mg BID IV 09/02/20 09:00 10/02/20 08:59 09/11/20 20:50 Famotidine (Pepcid) 20 mg STK-MED ONCE IV 09/02/20 07:57 09/02/20 07:59 DC Albuterol/ Ipratropium (Duoneb 0.5 Mg-3 Mg/3 ml Soln) 3 ml STK-MED ONCE IH 09/02/20 08:37 09/02/20 08:39 DC Sterile Water (Water) 1,000 ml STK-MED ONCE .ROUTE 09/03/20 14:28 09/03/20 14:30 DC Sodium Chloride 500 ml @ ud STK-MED ONCE IV 09/04/20 09:35 09/04/20 09:37 DC Vecuronium [place] (Norcuron) 15 mg Q1HR PRN IV vent dsynchrony or hypoxia 09/04/20 11:30 10/04/20 11:29 09/11/20 10:00 Enoxaparin Sodium (Lovenox) 40 mg BID SQ 09/04/20 21:00 09/08/20 10:44 DC 09/08/20 09:36 Sterile Water (Water) 1,000 ml STK-MED ONCE .ROUTE 09/04/20 17:03 09/04/20 17:05 DC Dexmedetomidine HCl 800 mcg/ Sodium Chloride 200 ml @ 0 mls/hr IV 09/04/20 20:00 09/07/20 20:39 DC 09/07/20 11:26 Vancomycin HCl 1.5 gm/Sodium Chloride 300 ml @ 175 mls/hr Q12H IV 09/05/20 11:00 09/07/20 18:15 DC 09/07/20 10:46 Cefepime HCl 2 gm/ Sodium Chloride 100 ml @ 100 mls/hr Q8H IV 09/05/20 09:30 09/07/20 11:14 DC 09/07/20 09:27 Vecuronium [place] (Norcuron) 10 mg STK-MED ONCE .ROUTE 09/05/20 12:00 09/05/20 16:06 DC Sodium Chloride 500 ml @ ud STK-MED ONCE IV 09/05/20 21:36 09/05/20 21:38 DC Piperacillin Sod/ Tazobactam Sod 3.375 gm/Sodium Chloride 100 ml @ 100 mls/hr Q6H IV 09/07/20 11:30 09/07/20 12:27 DC Piperacillin Sod/ Tazobactam Sod 3.375 gm/Sodium Chloride 100 ml @ 100 mls/hr Q6H IV 09/07/20 13:00 09/12/20 09:28 DC 09/12/20 07:00 Vancomycin HCl 1.5 gm/Sodium Chloride 300 ml @ 175 mls/hr Q8H IV 09/07/20 20:00 09/08/20 14:57 DC 09/08/20 13:30 Sodium Chloride 500 ml @ ud STK-MED ONCE IV 09/07/20 20:09 09/07/20 20:10 DC Dexmedetomidine HCl 1600 mcg/ Sodium Chloride 400 ml @ 0 mls/hr IV 09/07/20 21:00 10/07/20 20:59 09/11/20 20:10 Fentanyl Citrate 2000 mcg/Sodium Chloride 200 ml @ 0 mls/hr IV 09/07/20 21:00 09/07/20 20:41 DC Fentanyl Citrate 2000 mcg/Sodium Chloride 200 ml @ 0 mls/hr IV 09/07/20 21:00 10/07/20 20:59 09/12/20 05:06 Enoxaparin Sodium (Lovenox) 90 mg BID SQ 09/08/20 21:00 10/08/20 20:59 09/11/20 20:50 Furosemide (Lasix) 20 mg STAT STAT IV 09/08/20 10:42 09/08/20 11:31 DC 09/08/20 11:44 Furosemide (Lasix) 20 mg STK-MED ONCE .ROUTE 09/08/20 10:52 09/08/20 10:54 DC Dextrose 1,000 ml @ 100 mls/hr Q10H ONCE IV 09/08/20 14:30 09/09/20 00:29 DC 09/08/20 15:10 Vancomycin HCl 1 gm/Sodium Chloride 300 ml @ 175 mls/hr Q8H IV 09/08/20 21:00 09/09/20 08:39 DC 09/09/20 04:50 Sterile Water (Water) 1,000 ml STK-MED ONCE .ROUTE 09/09/20 04:59 09/09/20 05:01 DC Vancomycin HCl 1 gm/Sodium Chloride 250 ml @ 145.843 mls/hr Q8H IV 09/09/20 08:39 09/09/20 08:40 DC Vancomycin HCl 1 gm/Sodium Chloride 250 ml @ 175 mls/hr Q8H IV 09/09/20 13:00 09/12/20 08:32 DC 09/11/20 21:45 Potassium Chloride/Sodium Chloride 1,000 ml @ 100 mls/hr Q10H IV 09/09/20 11:30 09/10/20 12:26 DC 09/09/20 21:30 Furosemide (Lasix) 20 mg STAT STAT IV 09/09/20 12:29 09/09/20 12:32 DC 09/09/20 12:29 Furosemide (Lasix) 40 mg STAT STAT IV 09/10/20 06:17 09/10/20 08:18 DC 09/10/20 06:17 Potassium Chloride/Dextrose 1,000 ml @ 100 mls/hr Q10H IV 09/10/20 12:30 09/11/20 11:08 DC 09/11/20 08:49 Albuterol/ Ipratropium (Duoneb 0.5 Mg-3 Mg/3 ml Soln) 3 ml STK-MED ONCE IH 09/10/20 14:59 09/10/20 15:01 DC Sodium Chloride 500 ml @ ud STK-MED ONCE IV 09/10/20 20:38 09/10/20 20:40 DC Acetaminophen (Ofirmev) 1,000 mg Q8H PRN IV FEVER 09/11/20 08:00 10/11/20 07:59 09/11/20 22:15 Acetaminophen (Ofirmev) 1,000 mg OT IV 09/11/20 08:30 09/11/20 08:31 DC 09/11/20 08:21 Furosemide (Lasix) 20 mg STAT STAT IV 09/11/20 08:31 09/11/20 08:38 DC 09/11/20 08:50 Dextrose/Sodium Chloride 1,000 ml @ 100 mls/hr Q10H IV 09/11/20 11:30 09/11/20 11:09 DC Dextrose/Sodium Chloride 1,000 ml @ 50 mls/hr Q20H IV 09/11/20 11:30 10/11/20 11:29 09/11/20 14:24 Sodium Chloride 500 ml @ 500 mls/hr Q1H ONCE IV 09/11/20 13:00 09/11/20 13:59 DC 09/11/20 13:00 Norepinephrine Bitartrate 8 mg/ Sodium Chloride 250 ml @ 0 mls/hr TITRATE IV 09/11/20 13:30 10/11/20 13:29 09/11/20 14:31 Furosemide (Lasix) 20 mg STAT STAT IV 09/12/20 04:02 09/12/20 04:17 DC 09/12/20 04:02 Furosemide (Lasix) 20 mg STK-MED ONCE .ROUTE 09/12/20 04:04 09/12/20 04:07 DC Calcium Gluconate (Calcium Gluconate) 1,000 mg STAT STAT IV 09/12/20 07:39 09/12/20 08:12 DC Dextrose (Dextrose 50%-Water Syringe) 50 ml STAT STAT IV 09/12/20 07:39 09/12/20 08:12 DC Insulin Human Regular (Humulin R) 10 unit OT ONCE IV 09/12/20 08:00 09/12/20 08:12 DC Piperacillin Sod/ Tazobactam Sod 2.25 gm/Sodium Chloride 100 ml @ 100 mls/hr Q6H IV 09/12/20 13:00 10/12/20 12:59 PROCEDURE:CHEST 1 VIEW COMPARISON:[facility], CR, XRAY CHEST SINGLE VW, 09/04/2020, 07:26 AM. [facility], CT, CT CHEST W/O, 09/01/2020, 03:57 PM. [facility], CR, XRAY CHEST SINGLE VW, 09/08/2020, 10:15 AM. [facility], CR, XRAY CHEST SINGLE VW, 09/10/2020, 09:26 AM. INDICATIONS:advanced ett FINDINGS: LUNGS/PLEURA:ETT tip 5 cm above the chuy. Diffuse bilateral heterogeneous infiltrates with some ground-glass, but predominantly consolidative, components. CARDIAC:Cardiac margins are obscured by bilateral lung density. MEDIASTINUM:Normal. No visible mass or adenopathy. BONES:Normal. No fracture or visible bony lesion. OTHER:A catheter tip is identified over the left upper arm and axillary region. A gastric tube extends into the stomach below the field of view of this exam. CONCLUSION: 1. ETT in satisfactory position. 2. Re-demonstrated findings of severe bilateral pneumonia. Compared to the earlier exam of same date, there is increased infiltrate density and decreased aeration in the left upper lung on the present exam. 3. A catheter tip is once again noted in the left upper arm and left axilla. This is of uncertain nature. It is more peripherally located than would be expected for a PICC line. Recommend correlation with recent catheter placement and therapy. Assessment & Plan: Assessment Hospital course: Pt is a 54 y/o M with PMHx of HTN, HLD, obesity, and anxiety. He was admitted the morning of 08/31 as a transfer from OSH for acute hypoxemic respiratory failure and COVID-19. He was started on full spectrum treatment for COVID-19 with IV Decadron, Azithromycin, Remdesivir, CCP, Zinc, and Vitamin C. On arrival to this facility, he was in mild to moderate respiratory distress and required continuous CPAP to maintain Oxygenation. He remained relatively stable throughout 08/31, but started becoming more fatigued the evening of 08/31, and was moved to the ICU for closer monitoring. In the ICU, he was continued on CPAP in an effort to avoid intubation. However, he continued to have difficulty with NIPPV and was frequently dyssynchronous, causing further desaturations. He was also noted to have Sub q emphysema in his chest and neck, which was concerning for barotrauma due to continued dyssynchrony. The morning of 09/01, he was noted to be in worsened respiratory distress and there was concern for impending respiratory collapse due to fatigue. The patient and I discussed intubation and he agreed to be electively intubated before he decompensated completely. The on- call HVAC REFRIGERATION TECHNICIAN was called and the patient was subsequently intubated without complication. He was started on Propofol and fentanyl drips and paralyzed with IV vecuronium pushes. He has tolerated mechanical ventilation rather well and his O2 sats and PaO2 have improved markedly. Prior to intubation his ABG showed normal pH and a PaO2 in the 50's. His PaO2 improved to 70's within the hour, and was 150's on his most recent ABG the evening of 09/01. Of note, I did discuss the possibility of prolonged intubation, need for tracheostomy, and whether this is something that he would want done. He agreed that tracheostomy and long-term vent weaning is something that he would be ok with if it came down to it. Since intubation, he has improved markedly. He was continued on treatment for COVID with Remdesivir, steroids, and azithromycin and has completed his courses of each of these. His inflammtory markers have been downtrending with the exception of D-dimer which is uptrending slowly. His WBC was previously trending down, but increased sharply from 15 to 19 today. He has also been fevering so his Abx were broadened out to Vanc/Cefepime this AM and repeat Blood and sputum cultures were obtained. 09/06/2020: he remained stable. still have low grade fever. blood cultures are negative. 09/07: o2 level improved with prone position. still require high vent settings. 09/08: stable. he will be placed in prone position again today. 09/09: stable. he is running fever. CXR showed worsening air space disease. 09/10: his condition deteriorated. O2 sat dropped with high vent setting. he is made DNR. 09/11: poor respiratory status. he benefited from prone position but still sat <90%. he developed fever. 09/12: criticaly unstable with O2 sat of 70-80%. he developed shock and was treated with levophed and IVF. levophed weaned off this morning. No urinary output. he was given IVF and lasix. Assessments: Neuro: sedated. expected possible brain injury from hypoxia but difficult to assess. LFT is very high, will check ammonia level. sedation is managed by the hand sewer. CV:HD stable. # Hx HTN but off lisinopril due to soft BP. Pulmo: #Acute respiratory failure/ARDS on mechanical ventilation: managed by ICU telemedicine.Keep Pplat < 30 to limit risk of pneumothorax and barotrauma. #COVID-19 pneumonia: He is still on high setting, O2 sat dropping below 85%. he is now in prone position with O2 sat 80s%. CXR showed worsening air space disease.possibly superimposed with HAP. Procalcitonin is normal. covid markers still high. - C/w IV dexamethasone 6 mg daily. - Pt has completed course of Remdesivir. - s/p 1u CCP - stop Vancomycin : trough level is very high due to LUISA. he completed 7 days course. - c/w Zosyn day 5(was on Cefepime) - lasix IV 40 mg. - keep in prone position for 16 hr/24 hrs. - continue Propofol/Fentanyl for sedation/analgesia; precedex is available for backup sedation if needed - continue IV Vecuronium 15mg q1h + IV Vec 2mg q30min PRN - trend COVID markers q48h - CXR q48h and PRN Pneumomediastinum without pneumothorax: stable. GI: he only got one bolus of TF yesterday. today he did not tolerate TF when supine. # Acute liver injury: Markedly Elevated LFT: most likely due to shock/ischemic injury. Unlikley G.B disease.difficult to assess for liver failure as he is sedated. BP is back to map>65. will check INR and ammonia. will monitor LFT. # hypoalbuminemia: he is third spacing fluids. : no issues endo: # episode of hypoglycemia: due to lack of feeding and liver acute injury. -c/w D5 IV. heme: #High D.Dimer: he is on Lovenox 90 mg BID due to high D.Dimer. he is too unstable to get CTA chest. ID: #Sepsis: improved fever and leukocytosis: Influenza A&B negative, blood culture negative. urine Cx negative. FEN: #LUISA: due to ATN 2/2 shock. zero UOP salomon alst 24 hours. - Lasix 40 mg stat was given. - will monitor BMP closely. #Dehydration:resolved. the pt recieved mor wolf 6 L input last 24 hrs. #Hyperkalemia: due to LUISA. hyperkalemia protocol. Sedation: propofol/precedex Analgesia: Fent VTE ppx: Lovenox. GI ppx: Pepcid Diet: TF when supine. CODE: DNR prognosis is poor. His Amanda Jean ([phone]) was contacted she got updates. Time Spent: > 40 minutes between evaluation, coordination of care, and docum entation ARMANDO OLIVARES MD Sep 12, 2020 11:03
--- NOTE | 2020-09-12 12:25 | TELE.CONS ---
Consultation Reason for Consult: Reason for Consultation: Covid PNA History of Present Illness History of Patient Comments The pt is proned however not tolerating being supine. Review of Systems Constitutional: Fever ENT: Other Respiratory: Shortness of breath, SOB with excertion Allergies: Coded Allergies: Sulfa (Sulfonamide Antibiotics) (Verified Allergy, Mild, 08/31/20) Scheduled Atorvastatin 10MG (Lipitor 10MG), 1 TAB PO HS, (Reported) Bisoprolol Fumarate/Hctz (Bisoprolol-Hctz 5-6.25 Mg Tab), 1 TAB PO DAILY, (Reported) Temazepam (Restoril), 1 CAP PO HS, (Reported) VITALS REVIEW VITALS Vital Sign - Last 24 Hours 08/31/20 08/31/20 08/31/20 08/31/20 00:59 00:59 00:59 01:31 Temp 99.3 99.1 99.1 99.1 Pulse 96 96 96 89 Resp 22 22 22 22 B/P (MAP) 154/64 (94) 133/78 (96) Pulse Ox 85 85 85 O2 Delivery Non-Rebreather Non-Rebreather O2 Flow Rate 15.00 15.00 08/31/20 08/31/20 08/31/20 08/31/20 02:09 03:00 03:05 03:25 Temp 99.2 99.2 99.6 Pulse 85 86 102 Resp 23 22 22 B/P (MAP) 130/82 (98) 135/75 (95) 159/87 (111) Pulse Ox 90 91 90 O2 Delivery Non-Rebreather Bi-pap Non-Rebreather Non-Rebreather O2 Flow Rate 15.00 100.00 15.00 15.00 08/31/20 08/31/20 08/31/20 08/31/20 04:27 04:48 04:56 06:14 Temp 99.3 Pulse 92 114 85 Resp 30 42 22 B/P (MAP) 136/82 (100) Pulse Ox 86 88 90 O2 Delivery Comfort Ryne S/T Non-Rebreather S/T O2 Flow Rate 60.00 15.00 FiO2 100 100 100 08/31/20 08/31/20 08/31/20 08/31/20 08:08 08:30 08:54 08:54 Pulse 111 114 Resp 39 44 B/P (MAP) 141/91 Pulse Ox 91 91 O2 Delivery Bi-pap 08/31/20 08/31/20 08/31/20 08/31/20 08:57 08:57 09:03 11:27 Temp 100.0 Pulse 119 110 103 104 Resp 44 45 60 36 B/P (MAP) 141/91 (108) Pulse Ox 90 87 89 94 O2 Delivery CPAP CPAP FiO2 100 100 08/31/20 08/31/20 08/31/20 08/31/20 11:49 14:30 15:23 15:45 Temp 98.5 Pulse 111 92 91 Resp 58 49 49 B/P (MAP) 119/85 (96) Pulse Ox 89 90 90 O2 Delivery CPAP FiO2 100 08/31/20 08/31/20 08/31/20 08/31/20 15:52 16:00 16:00 16:30 Temp 97.3 98.0 Pulse 93 85 92 Resp 44 55 40 B/P (MAP) 145/95 (112) 128/78 (95) Pulse Ox 89 91 91 O2 Delivery Bi-pap 08/31/20 08/31/20 08/31/20 08/31/20 16:34 16:45 16:49 17:00 Pulse 86 86 98 89 Resp 62 34 42 B/P (MAP) 127/82 (97) Pulse Ox 90 89 88 93 08/31/20 08/31/20 08/31/20 08/31/20 17:01 17:02 17:02 17:04 Pulse 93 99 101 87 Resp 39 39 38 37 B/P (MAP) 128/78 (95) Pulse Ox 92 91 91 90 O2 Delivery CPAP FiO2 100 08/31/20 08/31/20 08/31/20 08/31/20 17:15 17:19 17:30 17:34 Pulse 83 89 91 88 Resp 78 34 32 B/P (MAP) 136/109 (118) 134/78 (96) Pulse Ox 90 87 89 88 08/31/20 08/31/20 08/31/20 08/31/20 17:45 17:49 18:00 18:02 Pulse 89 87 89 92 Resp 69 54 47 B/P (MAP) 134/91 (105) Pulse Ox 86 89 88 89 O2 Delivery CPAP FiO2 100 08/31/20 08/31/20 08/31/20 08/31/20 18:04 18:15 18:19 19:34 Pulse 84 86 77 82 Resp 43 26 39 49 B/P (MAP) 138/68 (91) 125/58 (80) 117/74 (88) Pulse Ox 88 91 90 93 08/31/20 08/31/20 08/31/20 08/31/20 19:45 19:49 20:00 20:00 Pulse 74 69 97 Resp 41 42 57 B/P (MAP) 118/69 (85) Pulse Ox 94 92 86 O2 Delivery C-Pap 08/31/20 08/31/20 08/31/20 08/31/20 20:04 20:15 20:19 20:30 Pulse 87 71 81 81 Resp 37 28 41 B/P (MAP) 121/77 (92) 124/69 (87) Pulse Ox 88 93 91 91 08/31/20 08/31/20 08/31/20 08/31/20 20:34 20:45 20:49 20:50 Temp 97.0 Pulse 78 76 84 Resp 43 48 B/P (MAP) 124/69 (87) 115/79 (91) Pulse Ox 90 93 91 08/31/20 08/31/20 08/31/20 08/31/20 21:00 21:04 21:15 21:19 Pulse 82 88 86 86 Resp 47 57 26 40 B/P (MAP) 126/84 (98) 138/72 (94) Pulse Ox 91 87 89 87 08/31/20 08/31/20 08/31/20 08/31/20 21:30 21:34 21:45 21:45 Pulse 99 92 88 98 Resp 42 33 83 B/P (MAP) 142/85 (104) Pulse Ox 88 89 91 89 O2 Delivery CPAP FiO2 100 08/31/20 08/31/20 08/31/20 09/01/20 22:44 22:46 22:46 00:00 Temp 98.4 Pulse 88 88 88 Resp 33 33 33 Pulse Ox 90 90 91 09/01/20 09/01/20 09/01/20 09/01/20 00:00 00:30 04:00 04:00 Temp 98.1 Pulse 83 Resp 41 Pulse Ox 92 O2 Delivery C-Pap CPAP C-Pap FiO2 100 09/01/20 09/01/20 09/01/20 09/01/20 04:00 04:09 04:15 04:23 Pulse 73 94 86 76 Resp 43 36 27 50 B/P (MAP) 133/71 (91) 104/49 (67) Pulse Ox 92 83 89 91 09/01/20 09/01/20 09/01/20 09/01/20 04:30 04:39 04:45 04:54 Pulse 82 96 94 Resp 42 48 B/P (MAP) 131/87 (102) 105/43 (63) Pulse Ox 91 82 86 85 09/01/20 09/01/20 09/01/20 09/01/20 05:00 05:00 05:08 05:15 Pulse 84 103 110 99 Resp 40 47 73 46 B/P (MAP) 120/75 (90) Pulse Ox 93 85 83 90 O2 Delivery CPAP FiO2 100 09/01/20 09/01/20 09/01/20 09/01/20 05:23 05:30 05:38 05:45 Pulse 102 88 94 88 Resp 28 33 47 B/P (MAP) 110/66 (81) 118/71 (87) Pulse Ox 79 82 88 91 09/01/20 09/01/20 09/01/20 09/01/20 05:53 07:15 09:36 09:36 Pulse 98 111 107 Resp 45 45 B/P (MAP) 116/76 (89) Pulse Ox 87 91 90 O2 Delivery C-Pap 09/01/20 09/01/20 09/01/20 09/01/20 09:37 10:47 11:00 11:48 Pulse 111 76 76 Resp 51 22 22 Pulse Ox 91 91 91 O2 Delivery CPAP Mechanical Ventilator FiO2 100 100 100 09/01/20 09/01/20 09/01/20 09/01/20 14:50 14:50 14:50 14:54 Pulse 74 74 76 74 Resp 22 22 22 22 Pulse Ox 94 94 91 94 FiO2 100 09/01/20 09/01/20 09/01/20 09/01/20 15:00 15:48 15:58 16:00 Pulse 102 73 75 Resp 25 24 B/P (MAP) 107/69 (82) Pulse Ox 91 95 95 O2 Delivery Mechanical Ventilator 09/01/20 09/01/20 09/01/20 09/01/20 16:01 16:04 16:07 16:10 Pulse 77 75 78 73 Resp 23 23 24 22 B/P (MAP) 104/66 (79) 102/63 (76) 104/58 (73) 102/62 (75) Pulse Ox 95 95 95 95 09/01/20 09/01/20 09/01/20 09/01/20 16:13 16:15 16:16 16:19 Pulse 72 77 77 77 Resp 21 23 23 22 B/P (MAP) 101/62 (75) 107/61 (76) 100/61 (74) Pulse Ox 95 95 95 96 09/01/20 09/01/20 09/01/20 09/01/20 16:22 16:25 16:28 16:30 Pulse 78 76 77 78 Resp 23 24 23 23 B/P (MAP) 100/60 (73) 105/61 (76) 101/65 (77) Pulse Ox 95 95 95 95 09/01/20 09/01/20 09/01/20 09/01/20 16:31 16:34 16:37 16:56 Pulse 77 77 79 73 Resp 24 24 23 22 B/P (MAP) 102/61 (75) 101/64 (76) 98/62 (74) Pulse Ox 95 96 95 93 FiO2 100 09/01/20 09/01/20 09/01/20 09/01/20 19:13 19:15 19:16 19:19 Pulse 67 79 81 73 Resp 22 24 25 B/P (MAP) 106/72 (83) 112/67 (82) 105/60 (75) Pulse Ox 96 85 91 92 09/01/20 09/01/20 09/01/20 09/01/20 19:22 19:25 19:28 19:30 Pulse 74 71 73 73 Resp 24 23 23 24 B/P (MAP) 105/60 (75) 106/61 (76) 106/62 (77) Pulse Ox 91 91 91 92 09/01/20 09/01/20 09/01/20 09/01/20 19:31 19:34 19:37 19:40 Pulse 72 72 72 71 Resp 23 23 23 23 B/P (MAP) 106/62 (77) 107/64 (78) 102/60 (74) 105/61 (76) Pulse Ox 92 92 92 92 09/01/20 09/01/20 09/01/20 09/01/20 19:43 19:45 19:46 19:49 Pulse 72 71 71 72 Resp 22 23 24 24 B/P (MAP) 108/59 (75) 107/61 (76) 106/61 (76) Pulse Ox 92 92 92 92 09/01/20 09/01/20 09/01/20 09/01/20 19:52 19:55 19:58 20:00 Pulse 72 72 73 72 Resp 23 23 23 26 B/P (MAP) 104/64 (77) 104/63 (77) 100/62 (75) Pulse Ox 92 92 91 92 FiO2 100 09/01/20 09/01/20 09/01/20 09/01/20 20:00 20:13 20:15 20:16 Pulse 72 73 73 Resp 23 23 23 B/P (MAP) 105/61 (76) 106/63 (77) Pulse Ox 90 90 90 O2 Delivery Mechanical Ventilator 09/01/20 09/01/20 09/01/20 09/01/20 20:19 20:22 20:25 20:28 Pulse 73 72 73 72 Resp 22 22 23 23 B/P (MAP) 105/63 (77) 104/62 (76) 106/61 (76) 102/62 (75) Pulse Ox 90 91 90 91 09/01/20 09/01/20 09/01/20 09/01/20 20:30 20:31 20:34 20:37 Pulse 71 72 69 73 Resp 23 23 22 22 B/P (MAP) 107/66 (80) 103/55 (71) 99/57 (71) Pulse Ox 91 91 90 90 09/01/20 09/01/20 09/01/20 09/01/20 20:40 20:43 20:45 20:46 Pulse 71 70 77 72 Resp 22 22 22 22 B/P (MAP) 105/61 (76) 103/62 (76) 111/64 (80) Pulse Ox 90 90 91 92 09/01/20 09/01/20 09/01/20 09/01/20 20:49 20:52 20:55 20:58 Pulse 73 73 67 74 Resp 22 22 22 23 B/P (MAP) 104/61 (75) 108/62 (77) 111/63 (79) 108/63 (78) Pulse Ox 92 92 93 92 11/09/01/20 09/01/20 09/01/20 21:10 21:11 21:12 21:12 Pulse 74 74 74 74 Resp 22 22 22 22 Pulse Ox 91 91 91 91 FiO2 100 09/01/20 09/01/20 09/01/20 09/01/20 21:46 21:49 21:52 21:55 Pulse 80 80 79 79 Resp 22 22 22 22 B/P (MAP) 106/62 (77) 110/63 (79) 109/63 (78) 110/58 (75) Pulse Ox 91 92 91 91 09/01/20 09/01/20 09/01/20 09/01/20 21:58 22:00 22:01 22:04 Pulse 79 78 80 80 Resp 22 22 22 23 B/P (MAP) 108/59 (75) 108/64 (79) 106/60 (75) Pulse Ox 92 92 92 92 09/01/20 09/01/20 09/01/20 09/01/20 22:07 22:10 22:13 22:15 Pulse 81 79 77 80 Resp 25 24 24 23 B/P (MAP) 107/61 (76) 107/63 (78) 110/65 (80) Pulse Ox 92 92 92 92 09/01/20 09/01/20 09/01/20 09/01/20 22:16 22:19 22:22 22:25 Pulse 79 80 80 77 Resp 24 25 24 25 B/P (MAP) 106/60 (75) 111/61 (78) 109/62 (78) 109/61 (77) Pulse Ox 92 92 92 92 09/01/20 09/01/20 09/01/20 09/01/20 22:28 22:30 22:31 22:34 Pulse 77 80 78 78 Resp 24 24 24 23 B/P (MAP) 110/67 (81) 106/63 (77) 110/63 (79) Pulse Ox 92 92 92 92 09/01/20 09/01/20 09/01/20 09/01/20 23:10 23:30 23:31 23:34 Pulse 76 77 74 76 Resp 22 22 23 26 B/P (MAP) 113/62 (79) 107/62 (77) Pulse Ox 92 92 92 92 FiO2 100 09/01/20 09/01/20 09/01/20 09/01/20 23:37 23:40 23:43 23:45 Pulse 76 76 73 75 Resp 27 B/P (MAP) 109/61 (77) 109/58 (75) 112/62 (79) Pulse Ox 92 93 93 93 09/01/20 09/01/20 09/01/20 09/01/20 23:46 23:49 23:52 23:55 Pulse 74 74 83 72 Resp B/P (MAP) 112/59 (76) 113/66 (82) 116/67 (83) 117/66 (83) Pulse Ox 93 93 94 93 09/01/20 09/02/20 09/02/20 09/02/20 23:58 00:00 00:00 00:13 Pulse 78 80 75 Resp B/P (MAP) 118/65 (82) 114/66 (82) Pulse Ox 93 93 93 O2 Delivery Mechanical Ventilator FiO2 100 09/02/20 09/02/20 09/02/20 09/02/20 00:15 00:16 00:19 00:22 Pulse 76 77 75 75 Resp B/P (MAP) 118/65 (82) 114/67 (83) 119/63 (81) Pulse Ox 93 93 92 93 09/02/20 09/02/20 09/02/20 09/02/20 00:25 00:28 00:30 00:31 Pulse 76 75 76 77 Resp B/P (MAP) 117/68 (84) 115/65 (82) 115/64 (81) Pulse Ox 93 92 92 92 09/02/20 09/02/20 09/02/20 09/02/20 00:34 00:37 00:40 00:43 Pulse 77 80 79 80 Resp B/P (MAP) 112/62 (79) 110/63 (79) 110/63 (79) 107/64 (78) Pulse Ox 93 92 92 92 09/02/20 09/02/20 09/02/20 09/02/20 00:45 00:46 00:49 00:52 Pulse 82 81 79 80 Resp 24 B/P (MAP) 108/63 (78) 109/61 (77) 107/67 (80) Pulse Ox 92 92 92 93 09/02/20 09/02/20 09/02/20 09/02/20 00:55 00:58 01:13 01:15 Pulse 80 77 80 73 Resp 22 B/P (MAP) 109/65 (80) 109/63 (78) 114/60 (78) Pulse Ox 92 93 88 91 09/02/20 09/02/20 09/02/20 09/02/20 01:16 01:19 01:22 01:25 Pulse 76 77 75 74 Resp B/P (MAP) 107/64 (78) 108/59 (75) 110/63 (79) 109/62 (78) Pulse Ox 92 92 92 93 09/02/20 09/02/20 09/02/20 09/02/20 01:28 01:30 01:31 01:34 Pulse 73 73 75 77 Resp B/P (MAP) 110/61 (77) 109/63 (78) 107/61 (76) Pulse Ox 92 92 92 93 09/02/20 09/02/20 09/02/20 09/02/20 01:37 01:40 01:43 01:45 Pulse 76 76 75 74 Resp B/P (MAP) 105/64 (78) 105/62 (76) 104/63 (77) Pulse Ox 93 92 92 92 09/02/20 09/02/20 09/02/20 09/02/20 01:46 01:49 01:52 01:55 Pulse 75 77 79 75 Resp B/P (MAP) 113/62 (79) 108/64 (79) 107/61 (76) 107/62 (77) Pulse Ox 92 93 93 93 09/02/20 09/02/20 09/02/20 09/02/20 01:58 02:20 02:25 02:28 Pulse 76 79 74 71 Resp B/P (MAP) 110/61 (77) 104/61 (75) 104/59 (74) Pulse Ox 92 93 93 93 FiO2 100 09/02/20 09/02/20 09/02/20 09/02/20 02:30 02:31 02:34 02:37 Pulse 73 70 69 70 Resp 22 B/P (MAP) 104/59 (74) 103/60 (74) 102/58 (73) Pulse Ox 93 93 93 93 09/02/20 09/02/20 09/02/20 09/02/20 02:40 02:43 02:45 02:46 Pulse 70 73 73 71 Resp 23 B/P (MAP) 105/60 (75) 103/59 (74) 102/60 (74) Pulse Ox 93 93 93 93 09/02/20 09/02/20 09/02/20 09/02/20 02:49 02:52 02:55 02:58 Pulse 72 74 75 72 Resp 23 B/P (MAP) 105/60 (75) 101/59 (73) 102/56 (71) 103/55 (71) Pulse Ox 93 93 93 93 09/02/20 09/02/20 09/02/20 09/02/20 03:00 03:01 03:04 03:07 Pulse 73 71 69 70 Resp B/P (MAP) 102/58 (73) 100/57 (71) 99/57 (71) Pulse Ox 93 93 93 93 09/02/20 09/02/20 09/02/20 09/02/20 03:10 03:13 03:22 03:25 Pulse 70 71 71 69 Resp 23 B/P (MAP) 99/59 (72) 102/56 (71) 100/60 (73) 102/60 (74) Pulse Ox 93 93 93 93 09/02/20 09/02/20 09/02/20 09/02/20 03:28 03:29 03:31 03:34 Pulse 69 71 70 69 Resp B/P (MAP) 102/58 (73) 103/56 (72) 101/60 (74) Pulse Ox 93 93 93 93 09/02/20 09/02/20 09/02/20 09/02/20 03:37 03:40 03:43 03:44 Pulse 71 69 72 70 Resp 23 B/P (MAP) 105/61 (76) 105/54 (71) 102/58 (73) Pulse Ox 93 93 93 92 09/02/20 09/02/20 09/02/20 09/02/20 03:46 03:49 03:52 03:55 Pulse 69 71 74 75 Resp 23 23 22 23 B/P (MAP) 104/59 (74) 101/56 (71) 104/58 (73) 102/59 (73) Pulse Ox 93 93 93 93 09/02/20 09/02/20 09/02/20 09/02/20 03:58 03:59 04:00 04:00 Pulse 72 76 80 Resp B/P (MAP) 104/56 (72) Pulse Ox 92 93 93 O2 Delivery Mechanical Ventilator FiO2 100 09/02/20 09/02/20 09/02/20 09/02/20 04:01 04:04 04:04 04:08 Pulse 75 87 Resp B/P (MAP) 103/61 (75) 107/56 (73) 107/56 (73) Pulse Ox 92 90 90 94 09/02/20 09/02/20 09/02/20 09/02/20 04:08 04:09 04:09 04:22 Temp 98.8 Pulse 87 B/P (MAP) 123/65 (84) Pulse Ox 94 92 92 09/02/20 09/02/20 09/02/20 09/02/20 04:24 04:28 04:30 04:31 Temp 98.8 98.6 98.6 98.6 Pulse 123 120 126 115 Resp B/P (MAP) 128/73 (91) 121/77 (92) 129/70 (89) Pulse Ox 97 98 98 98 09/02/20 09/02/20 09/02/20 09/02/20 04:34 04:37 04:40 04:43 Temp 98.6 98.6 98.6 98.6 Pulse 114 105 97 94 Resp B/P (MAP) 127/83 (98) 127/82 (97) 118/63 (81) 115/64 (81) Pulse Ox 97 98 97 97 09/02/20 09/02/20 09/02/20 09/02/20 04:45 04:46 04:49 04:49 Temp 98.6 98.6 98.6 Pulse 94 92 87 118 Resp B/P (MAP) 118/72 (87) 139/87 (104) Pulse Ox 97 96 94 98 FiO2 100 09/02/20 09/02/20 09/02/20 09/02/20 04:52 04:55 04:58 05:07 Temp 98.6 98.6 98.6 98.6 Pulse 122 116 104 90 Resp 34 36 32 28 B/P (MAP) 144/95 (111) 130/74 (92) 123/66 (85) 113/67 (82) Pulse Ox 98 98 98 97 09/02/20 09/02/20 09/02/20 09/02/20 05:10 05:13 05:15 05:16 Temp 98.6 98.6 98.6 98.6 Pulse 105 99 122 104 Resp B/P (MAP) 130/76 (94) 129/77 (94) 129/72 (91) Pulse Ox 97 97 98 97 09/02/20 09/02/20 09/02/20 09/02/20 05:19 05:22 05:25 05:28 Temp 98.6 98.6 98.6 98.6 Pulse 104 112 113 95 Resp B/P (MAP) 125/74 (91) 140/95 (110) 136/70 (92) 119/62 (81) Pulse Ox 98 98 98 97 09/02/20 09/02/20 09/02/20 09/02/20 05:30 05:31 05:34 05:37 Temp 98.6 98.6 98.6 98.6 Pulse 93 91 92 93 Resp B/P (MAP) 113/65 (81) 113/62 (79) 118/66 (83) Pulse Ox 97 97 97 97 09/02/20 09/02/20 09/02/20 09/02/20 05:40 05:43 05:45 05:46 Temp 98.6 98.6 98.6 98.6 Pulse 105 103 96 95 Resp B/P (MAP) 125/74 (91) 136/83 (100) 116/66 (83) Pulse Ox 98 98 98 98 09/02/20 09/02/20 09/02/20 09/02/20 05:49 05:52 07:00 07:00 Temp 98.6 98.6 Pulse 90 91 80 Resp B/P (MAP) 116/64 (81) 111/57 (75) Pulse Ox 97 97 93 O2 Delivery Mechanical Ventilator FiO2 100 09/02/20 09/02/20 09/02/20 09/02/20 07:21 07:21 07:28 07:30 Temp 99.0 99.0 Pulse 98 98 83 87 Resp B/P (MAP) 112/65 (81) Pulse Ox 97 97 97 97 FiO2 100 09/02/20 09/02/20 09/02/20 09/02/20 07:31 07:34 07:37 07:40 Temp 99.0 99.0 99.0 99.1 Pulse 80 80 80 78 Resp B/P (MAP) 106/60 (75) 108/62 (77) 107/56 (73) 112/65 (81) Pulse Ox 97 97 97 97 09/02/20 09/02/20 09/02/20 09/02/20 07:43 07:45 07:46 07:49 Temp 99.1 99.1 99.1 99.1 Pulse 81 78 85 84 Resp B/P (MAP) 106/58 (74) 108/60 (76) 107/60 (76) Pulse Ox 97 97 97 97 09/02/20 09/02/20 09/02/20 09/02/20 07:52 07:55 07:58 08:00 Temp 99.1 99.1 99.3 99.1 Pulse 83 100 94 87 Resp 34 43 26 45 B/P (MAP) 106/59 (75) 113/71 (85) 107/67 (80) Pulse Ox 97 97 97 97 09/02/20 09/02/20 09/02/20 09/02/20 08:01 08:04 08:07 08:10 Temp 99.1 99.3 99.1 99.1 Pulse 84 84 83 83 Resp 36 36 25 28 B/P (MAP) 105/57 (73) 99/60 (73) 103/62 (76) 101/51 (68) Pulse Ox 97 96 97 96 09/02/20 09/02/20 09/02/20 09/02/20 08:13 08:30 08:31 08:34 Temp 99.1 99.3 99.3 99.3 Pulse 84 84 83 82 Resp 24 B/P (MAP) 102/53 (69) 104/59 (74) 103/56 (72) Pulse Ox 96 96 96 96 09/02/20 09/02/20 09/02/20 09/02/20 08:37 08:40 08:43 08:45 Temp 99.3 99.3 99.3 99.3 Pulse 80 84 84 83 Resp B/P (MAP) 97/54 (68) 103/54 (70) 97/58 (71) Pulse Ox 96 96 96 96 09/02/20 09/02/20 09/02/20 09/02/20 08:46 08:49 08:52 08:55 Temp 99.3 99.3 99.3 99.3 Pulse 82 83 83 84 Resp B/P (MAP) 97/55 (69) 97/55 (69) 100/58 (72) 96/59 (71) Pulse Ox 96 96 96 96 09/02/20 09/02/20 09/02/20 09/02/20 08:58 09:00 09:01 09:04 Temp 99.3 99.3 99.5 99.3 Pulse 83 90 95 98 Resp B/P (MAP) 102/57 (72) 130/76 (94) 133/81 (98) Pulse Ox 96 97 97 97 09/02/20 09/02/20 09/02/20 09/02/20 09:06 09:06 09:07 09:10 Temp 99.3 99.3 Pulse 99 98 99 95 Resp B/P (MAP) 135/76 (95) 136/79 (98) Pulse Ox 97 97 97 98 09/02/20 09/02/20 09/02/20 09/02/20 09:13 09:15 09:15 09:16 Temp 99.3 99.3 99.3 99.3 Pulse 85 102 102 84 Resp B/P (MAP) 145/91 (109) 131/78 (95) Pulse Ox 98 98 98 97 09/02/20 09/02/20 09/02/20 09/02/20 09:16 09:30 09:32 09:45 Temp 99.3 99.1 99.1 99.3 Pulse 84 82 84 80 Resp B/P (MAP) 131/78 (95) 114/63 (80) Pulse Ox 97 97 98 98 09/02/20 09/02/20 09/02/20 09/02/20 09:47 09:59 10:00 10:02 Temp 99.3 99.3 99.3 Pulse 79 83 81 80 Resp B/P (MAP) 114/62 (79) 110/61 (77) Pulse Ox 98 98 98 98 FiO2 100 09/02/20 09/02/20 09/02/20 09/02/20 10:15 10:15 10:17 10:17 Temp 99.3 99.3 99.3 99.3 Pulse 84 84 83 83 Resp B/P (MAP) 114/61 (78) 114/61 (78) Pulse Ox 97 97 98 98 09/02/20 09/02/20 09/02/20 09/02/20 10:30 10:30 10:32 10:45 Temp 99.3 99.3 99.3 Pulse 84 82 85 Resp B/P (MAP) 111/61 (78) Pulse Ox 97 97 97 FiO2 90 09/02/20 09/02/20 09/02/20 09/02/20 10:47 11:00 11:02 11:15 Temp 99.3 99.3 99.5 99.5 Pulse 84 89 87 91 Resp B/P (MAP) 108/60 (76) 111/61 (78) Pulse Ox 97 97 96 95 09/02/20 09/02/20 09/02/20 09/02/20 11:17 11:26 11:26 11:30 Temp 99.5 Pulse 87 80 80 Resp B/P (MAP) 111/67 (82) Pulse Ox 95 93 93 O2 Delivery Mechanical Ventilator FiO2 100 90 09/02/20 09/02/20 09/02/20 09/02/20 11:30 11:32 11:39 11:45 Temp 99.5 99.5 99.5 Pulse 83 85 90 85 Resp B/P (MAP) 118/68 (85) Pulse Ox 96 95 97 97 FiO2 90 09/02/20 09/02/20 09/02/20 09/02/20 11:45 11:47 11:47 12:00 Temp 99.5 99.5 99.5 99.5 Pulse 85 89 89 84 Resp B/P (MAP) 126/69 (88) 126/69 (88) Pulse Ox 97 96 96 97 09/02/20 09/02/20 09/02/20 09/02/20 12:02 12:15 12:17 12:30 Temp 99.5 99.5 99.5 99.3 Pulse 83 81 82 86 Resp B/P (MAP) 121/68 (85) 120/67 (84) Pulse Ox 97 97 97 96 09/02/20 09/02/20 09/02/20 09/02/20 12:32 12:45 12:47 13:00 Temp 99.3 99.3 99.3 99.3 Pulse 81 82 79 82 Resp B/P (MAP) 116/71 (86) 113/70 (84) Pulse Ox 96 96 96 96 09/02/20 09/02/20 09/02/20 09/02/20 13:02 13:47 14:00 14:02 Temp 99.3 99.3 99.3 99.5 Pulse 81 75 79 73 Resp B/P (MAP) 111/65 (80) 113/66 (82) 113/65 (81) Pulse Ox 95 97 97 96 09/02/20 09/02/20 09/02/20 09/02/20 14:11 14:15 14:17 14:30 Temp 99.5 99.5 99.5 Pulse 78 80 76 81 Resp B/P (MAP) 119/71 (87) Pulse Ox 98 96 97 95 FiO2 90 09/02/20 09/02/20 09/02/20 09/02/20 14:32 14:45 14:47 15:00 Temp 99.5 99.7 99.7 99.7 Pulse 79 77 78 87 Resp B/P (MAP) 112/67 (82) 115/68 (84) Pulse Ox 96 96 96 09/02/20 09/02/20 09/02/20 09/02/20 15:02 15:15 15:17 15:30 Temp 99.7 99.7 99.7 99.7 Pulse 66 69 67 76 Resp B/P (MAP) 119/67 (84) 119/70 (86) Pulse Ox 93 96 96 97 09/02/20 09/02/20 09/02/20 09/02/20 15:32 15:45 15:47 15:48 Temp 99.7 99.7 99.7 Pulse 76 76 80 78 Resp B/P (MAP) 115/69 (84) 116/67 (83) Pulse Ox 97 97 97 96 09/02/20 09/02/20 09/02/20 09/02/20 15:48 15:51 16:00 16:02 Temp 99.9 99.9 Pulse 78 77 76 77 Resp B/P (MAP) 113/70 (84) Pulse Ox 96 97 97 97 FiO2 90 09/02/20 09/02/20 09/02/20 09/02/20 16:15 16:17 16:26 16:26 Temp 99.9 99.9 Pulse 79 79 80 Resp 09 23 27 B/P (MAP) 113/68 (83) Pulse Ox 97 97 93 O2 Delivery Mechanical Ventilator FiO2 90 09/02/20 09/02/20 09/02/20 09/02/20 16:30 16:45 16:47 17:00 Temp 100.0 100.0 100.0 100.0 Pulse 82 80 78 78 Resp B/P (MAP) 115/65 (82) Pulse Ox 97 97 97 97 09/02/20 09/02/20 09/02/20 09/02/20 17:02 17:15 17:17 17:29 Temp 100.0 100.2 100.2 Pulse 75 74 75 69 Resp 04 22 22 B/P (MAP) 120/73 (89) 116/73 (87) Pulse Ox 97 97 97 98 FiO2 90 09/02/20 09/02/20 09/02/20 09/02/20 17:30 17:30 17:32 17:45 Temp 100.2 100.2 100.4 Pulse 69 74 69 71 Resp B/P (MAP) 118/73 (88) Pulse Ox 98 97 97 97 O2 Delivery Mechanical Ventilator FiO2 90 09/02/20 09/02/20 09/02/20 09/02/20 17:47 18:00 18:02 18:15 Temp 100.4 100.4 100.4 100.4 Pulse 70 68 68 72 Resp 25 B/P (MAP) 118/70 (86) 117/72 (87) Pulse Ox 97 98 98 98 09/02/20 09/02/20 09/02/20 09/02/20 18:17 18:47 19:02 19:17 Temp 100.4 100.4 100.4 100.4 Pulse 68 63 63 61 Resp 14 B/P (MAP) 117/71 (86) 119/74 (89) 117/76 (90) 121/77 (92) Pulse Ox 98 97 97 97 09/02/20 09/02/20 09/02/20 09/02/20 19:32 19:47 20:00 20:00 Temp 100.4 100.6 Pulse 61 60 62 Resp 21 B/P (MAP) 121/72 (88) 117/73 (88) Pulse Ox 97 97 99 O2 Delivery Mechanical Ventilator 09/02/20 09/02/20 09/02/20 09/02/20 20:00 20:00 20:00 20:02 Temp 100.6 Pulse 60 57 57 63 Resp B/P (MAP) 116/70 (85) Pulse Ox 96 98 98 98 FiO2 90 90 09/02/20 09/02/20 09/02/20 09/02/20 20:17 20:32 20:47 21:02 Temp 100.6 100.6 100.6 100.6 Pulse 59 59 60 59 Resp B/P (MAP) 120/72 (88) 116/71 (86) 117/71 (86) 117/73 (88) Pulse Ox 98 98 98 98 09/02/20 09/02/20 09/02/20 09/02/20 21:17 21:32 21:47 22:02 Temp 100.8 100.8 100.8 100.8 Pulse 58 59 61 58 Resp 22 B/P (MAP) 122/73 (89) 117/69 (85) 116/72 (87) 117/72 (87) Pulse Ox 98 97 97 97 09/02/20 09/02/20 09/02/20 09/02/20 22:17 22:30 22:37 22:47 Temp 100.8 100.6 100.4 Pulse 55 68 81 60 Resp B/P (MAP) 125/72 (89) 130/61 (84) 133/75 (94) Pulse Ox 98 96 75 97 FiO2 90 09/02/20 09/02/20 09/02/20 09/02/20 23:02 23:11 23:11 23:17 Temp 100.2 100.0 Pulse 65 68 63 Resp B/P (MAP) 133/76 (95) 129/70 (89) Pulse Ox 100 96 100 O2 Delivery Mechanical Ventilator FiO2 90 09/02/20 09/02/20 09/03/20 09/03/20 23:32 23:47 00:02 00:17 Temp 100.0 100.0 100.0 100.0 Pulse 65 66 60 60 Resp B/P (MAP) 120/62 (81) 112/66 (81) 118/69 (85) 118/74 (89) Pulse Ox 100 100 99 100 09/03/20 09/03/20 09/03/20 09/03/20 00:32 00:47 01:00 01:02 Temp 100.0 99.9 99.9 Pulse 59 59 62 58 Resp B/P (MAP) 117/72 (87) 116/66 (83) 118/66 (83) Pulse Ox 100 100 99 100 FiO2 90 09/03/20 09/03/20 09/03/20 09/03/20 01:17 01:32 02:02 02:17 Temp 99.9 99.9 99.9 99.9 Pulse 60 58 58 57 Resp B/P (MAP) 116/69 (85) 114/65 (81) 111/65 (80) 113/65 (81) Pulse Ox 100 100 99 100 09/03/20 09/03/20 09/03/20 09/03/20 02:32 02:47 03:00 03:00 Temp 99.9 99.9 Pulse 58 61 59 Resp B/P (MAP) 114/67 (83) 109/65 (80) Pulse Ox 100 99 100 O2 Delivery Mechanical Ventilator FiO2 90 09/03/20 09/03/20 09/03/20 09/03/20 03:00 03:00 03:00 03:02 Temp 99.9 Pulse 59 59 68 59 Resp 32 32 32 37 B/P (MAP) 130/72 (91) Pulse Ox 98 98 99 100 FiO2 90 09/03/20 09/03/20 09/03/20 09/03/20 03:18 03:48 04:02 04:17 Temp 99.5 Pulse 81 91 87 90 Resp 29 36 24 29 B/P (MAP) 125/76 (92) 93/58 (70) 107/67 (80) 112/69 (83) Pulse Ox 99 93 100 95 09/03/20 09/03/20 09/03/20 09/03/20 04:32 04:47 05:02 05:17 Pulse 63 59 66 61 Resp 27 24 26 26 B/P (MAP) 117/69 (85) 116/68 (84) 110/63 (79) 110/66 (81) Pulse Ox 100 100 100 100 09/03/20 09/03/20 09/03/20 09/03/20 05:32 05:47 05:50 05:50 Pulse 63 67 68 Resp 24 25 49 25 B/P (MAP) 119/60 (79) 108/66 (80) Pulse Ox 100 99 90 99 FiO2 90 09/03/20 09/03/20 09/03/20 09/03/20 06:02 06:17 08:00 08:00 Pulse 65 71 53 Resp 26 27 22 B/P (MAP) 110/65 (80) 106/66 (79) Pulse Ox 100 100 100 O2 Delivery Mechanical Ventilator FiO2 70 09/03/20 09/03/20 09/03/20 09/03/20 08:06 08:06 08:07 08:17 Pulse 61 61 61 61 Resp 26 26 25 25 Pulse Ox 98 98 98 98 O2 Delivery Mechanical Ventilator FiO2 90 90 09/03/20 09/03/20 09/03/20 09/03/20 10:21 12:00 12:00 13:50 Pulse 75 53 75 Resp 36 22 22 Pulse Ox 99 100 99 O2 Delivery Mechanical Ventilator FiO2 80 70 80 09/03/20 09/03/20 09/03/20 09/03/20 15:24 15:24 15:35 16:00 Pulse 58 75 58 53 Resp 31 22 31 22 Pulse Ox 99 99 99 100 FiO2 80 70 11/09/03/20 09/03/20 09/03/20 16:00 16:17 16:30 16:32 Temp 99.7 99.7 99.7 Pulse 63 57 60 Resp 50 48 82 B/P (MAP) 141/77 (98) 144/82 (102) Pulse Ox 99 100 99 O2 Delivery Mechanical Ventilator 09/03/20 09/03/20 09/03/20 09/03/20 16:45 16:47 17:00 17:02 Temp 99.7 99.7 99.7 99.7 Pulse 57 55 56 54 Resp 49 42 28 37 B/P (MAP) 145/79 (101) 143/79 (100) Pulse Ox 100 100 100 100 09/03/20 09/03/20 09/03/20 09/03/20 17:15 17:17 17:30 17:32 Temp 99.7 99.7 99.7 99.7 Pulse 70 65 57 60 Resp 22 22 25 30 B/P (MAP) 128/65 (86) 129/66 (87) Pulse Ox 99 100 100 100 09/03/20 09/03/20 09/03/20 09/03/20 17:45 17:47 17:52 18:00 Temp 99.5 99.5 99.5 Pulse 54 54 53 53 Resp B/P (MAP) 123/67 (85) Pulse Ox 100 100 100 100 FiO2 80 09/03/20 09/03/20 09/03/20 09/03/20 18:02 18:06 18:15 18:17 Temp 99.5 99.5 99.7 99.7 Pulse 52 54 53 53 Resp 22 B/P (MAP) 129/67 (87) 126/66 (86) 128/68 (88) Pulse Ox 100 100 100 100 09/03/20 09/03/20 09/03/20 09/03/20 18:21 19:21 19:21 19:21 Temp 99.7 100.0 Pulse 53 52 52 Resp B/P (MAP) 130/72 (91) 131/74 (93) Pulse Ox 100 100 100 O2 Delivery Mechanical Ventilator FiO2 70 09/03/20 09/03/20 09/03/20 09/03/20 19:36 19:51 20:00 20:00 Temp 100.0 100.0 Pulse 53 64 59 64 Resp 22 B/P (MAP) 126/72 (90) 125/68 (87) Pulse Ox 100 100 99 99 FiO2 70 09/03/20 09/03/20 09/03/20 09/03/20 20:00 20:00 20:06 20:21 Temp 99.9 100.0 Pulse 59 59 78 64 Resp 25 B/P (MAP) 128/90 (103) 136/60 (85) Pulse Ox 99 99 99 100 O2 Delivery Mechanical Ventilator FiO2 70 09/03/20 09/03/20 09/03/20 09/03/20 20:36 20:51 21:06 21:15 Temp 99.9 99.9 99.7 99.7 Pulse 54 59 69 62 Resp 22 B/P (MAP) 123/62 (82) 126/74 (91) 117/63 (81) Pulse Ox 100 99 98 100 09/03/20 09/03/20 09/03/20 09/03/20 21:21 21:30 21:36 21:51 Temp 99.7 99.7 99.7 99.9 Pulse 62 63 61 58 Resp 18 B/P (MAP) 123/69 (87) 126/72 (90) 128/75 (92) Pulse Ox 100 100 100 100 09/03/20 09/03/20 09/03/20 09/03/20 22:06 22:06 22:21 22:36 Temp 99.9 99.9 99.9 Pulse 57 59 56 57 Resp 15 23 B/P (MAP) 128/70 (89) 133/73 (93) 135/82 (99) Pulse Ox 100 100 100 100 FiO2 70 09/03/20 09/03/20 09/03/20 09/03/20 22:51 23:03 23:03 23:06 Temp 100.0 100.0 Pulse 57 60 62 Resp 22 13 B/P (MAP) 133/74 (93) 125/71 (89) Pulse Ox 100 100 100 O2 Delivery Mechanical Ventilator FiO2 70 09/03/20 09/03/20 09/03/20 09/04/20 23:21 23:37 23:51 00:06 Temp 100.2 100.2 100.2 100.0 Pulse 75 93 75 65 Resp 9 63 22 24 B/P (MAP) 116/63 (80) 152/119 (130) 129/69 (89) 136/70 (92) Pulse Ox 100 88 100 100 09/04/20 09/04/20 09/04/20 09/04/20 00:21 00:36 00:51 01:00 Temp 100.0 100.2 100.2 Pulse 80 61 56 55 Resp 35 24 23 22 B/P (MAP) 136/69 (91) 128/71 (90) 131/72 (91) Pulse Ox 99 98 99 100 FiO2 70 09/04/20 09/04/20 09/04/20 09/04/20 01:06 01:21 01:36 01:51 Temp 100.4 100.4 100.4 100.4 Pulse 58 56 56 58 Resp 22 B/P (MAP) 131/75 (93) 132/72 (92) 130/76 (94) 127/73 (91) Pulse Ox 100 100 100 100 09/04/20 09/04/20 09/04/20 09/04/20 02:06 02:21 02:30 02:30 Temp 100.6 100.6 Pulse 68 64 64 64 Resp 18 25 B/P (MAP) 120/68 (85) 122/67 (85) Pulse Ox 100 100 99 99 FiO2 70 09/04/20 09/04/20 09/04/20 09/04/20 02:30 02:36 02:51 03:06 Temp 100.6 100.8 100.8 Pulse 64 60 66 65 Resp 19 B/P (MAP) 123/67 (85) 122/69 (86) 120/66 (84) Pulse Ox 100 100 99 100 09/04/20 09/04/20 09/04/20 09/04/20 03:11 03:11 03:21 03:36 Temp 100.8 100.6 Pulse 65 64 63 Resp 29 B/P (MAP) 126/67 (86) 121/67 (85) Pulse Ox 100 100 99 O2 Delivery Mechanical Ventilator FiO2 70 09/04/20 09/04/20 09/04/20 09/04/20 03:51 04:06 04:21 04:36 Temp 100.4 100.4 100.4 100.4 Pulse 56 55 56 72 Resp 25 8 25 33 B/P (MAP) 128/67 (87) 126/74 (91) 123/69 (87) 113/67 (82) Pulse Ox 99 100 100 97 09/04/20 09/04/20 09/04/20 09/04/20 04:43 04:51 05:06 05:21 Temp 100.2 100.4 100.2 Pulse 60 77 82 68 Resp 25 38 39 32 B/P (MAP) 113/63 (80) 116/71 (86) 112/58 (76) Pulse Ox 100 93 93 92 FiO2 70 09/04/20 09/04/20 09/04/20 09/04/20 05:36 05:51 06:00 06:06 Temp 100.2 100.2 100.2 Pulse 59 58 57 59 Resp 23 B/P (MAP) 121/66 (84) 119/72 (88) 115/66 (82) Pulse Ox 96 97 97 98 FiO2 70 09/04/20 09/04/20 09/04/20 09/04/20 06:21 06:36 08:00 08:00 Temp 100.4 100.4 Pulse 69 74 53 Resp 27 22 B/P (MAP) 110/63 (79) 110/60 (77) Pulse Ox 98 98 100 O2 Delivery Mechanical Ventilator FiO2 70 09/04/20 09/04/20 09/04/20 09/04/20 08:11 08:11 08:11 08:11 Pulse 66 74 66 66 Resp 27 25 25 Pulse Ox 94 98 94 94 O2 Delivery Mechanical Ventilator FiO2 70 70 09/04/20 09/04/20 09/04/20 09/04/20 10:11 10:26 10:33 10:41 Temp 100.0 100.4 100.4 Pulse 75 71 78 70 Resp 24 26 B/P (MAP) 101/58 111/60 103/60 Pulse Ox 98 FiO2 80 09/04/20 09/04/20 09/04/20 09/04/20 11:01 11:31 12:00 12:00 Temp 100.3 100.3 Pulse 79 67 53 Resp 28 22 B/P (MAP) 111/60 109/59 Pulse Ox 100 O2 Delivery Mechanical Ventilator FiO2 80 11/09/04/20 09/04/20 09/04/20 13:06 13:15 13:21 13:30 Temp 100.4 100.4 100.4 100.2 Pulse 72 76 73 69 Resp 54 42 25 27 B/P (MAP) 121/70 (87) 115/64 (81) Pulse Ox 98 97 97 95 09/04/20 09/04/20 09/04/20 09/04/20 13:36 13:45 13:51 14:00 Temp 100.0 100.0 100.0 100.0 Pulse 68 75 66 71 Resp 30 36 35 48 B/P (MAP) 117/61 (79) 120/72 (88) Pulse Ox 95 95 93 95 09/04/20 09/04/20 09/04/20 09/04/20 14:06 14:09 14:09 14:09 Temp 100.0 Pulse 67 105 105 105 Resp 88 35 35 35 B/P (MAP) 124/60 (81) Pulse Ox 94 94 94 94 FiO2 80 09/04/20 09/04/20 09/04/20 09/04/20 14:15 14:21 14:30 14:36 Temp 100.0 100.0 100.0 99.9 Pulse 67 60 74 62 Resp 28 B/P (MAP) 117/68 (84) 127/70 (89) Pulse Ox 91 92 92 93 09/04/20 09/04/20 09/04/20 09/04/20 14:45 14:51 15:00 15:06 Temp 99.9 99.9 99.7 99.7 Pulse 63 60 68 64 Resp 22 96 22 22 B/P (MAP) 121/66 (84) 122/68 (86) Pulse Ox 96 98 99 100 09/04/20 09/04/20 09/04/20 09/04/20 15:15 15:21 15:36 15:45 Temp 99.7 99.7 99.5 99.5 Pulse 61 59 57 57 Resp 22 22 22 22 B/P (MAP) 122/69 (86) 118/72 (87) Pulse Ox 100 100 100 100 09/04/20 09/04/20 09/04/20 09/04/20 15:51 16:00 16:00 16:00 Temp 99.5 99.5 Pulse 56 53 58 Resp 26 22 23 B/P (MAP) 117/68 (84) Pulse Ox 100 100 100 O2 Delivery Mechanical Ventilator FiO2 80 09/04/20 09/04/20 09/04/20 09/04/20 16:06 16:15 16:21 16:30 Temp 99.3 99.3 99.3 99.5 Pulse 68 77 80 73 Resp 27 26 33 37 B/P (MAP) 136/75 (95) 131/67 (88) Pulse Ox 99 97 96 96 09/04/20 09/04/20 09/04/20 09/04/20 16:36 16:45 16:45 16:51 Temp 99.5 99.5 99.5 Pulse 73 74 80 69 Resp 38 22 B/P (MAP) 132/76 (94) 119/68 (85) Pulse Ox 95 96 95 96 FiO2 80 09/04/20 09/04/20 09/04/20 09/04/20 17:00 17:06 17:15 17:21 Temp 99.5 99.5 99.5 99.5 Pulse 65 66 61 63 Resp 22 B/P (MAP) 121/72 (88) 119/71 (87) Pulse Ox 96 97 98 98 09/04/20 09/04/20 09/04/20 09/04/20 17:30 17:36 17:45 17:51 Temp 99.5 99.3 99.3 99.3 Pulse 59 57 56 55 Resp 22 B/P (MAP) 115/68 (84) 116/71 (86) Pulse Ox 99 99 99 99 09/04/20 09/04/20 09/04/20 09/04/20 19:00 19:00 19:06 19:21 Temp 98.6 98.6 Pulse 50 50 52 Resp 22 B/P (MAP) 120/68 (85) 127/67 (87) Pulse Ox 100 98 98 O2 Delivery Mechanical Ventilator FiO2 80 09/04/20 09/04/20 09/04/20 09/04/20 19:36 19:51 20:00 20:00 Temp 98.6 98.6 Pulse 50 52 50 50 Resp 22 B/P (MAP) 120/75 (90) 115/65 (82) Pulse Ox 99 99 98 98 O2 Delivery Mechanical Ventilator FiO2 80 80 09/04/20 09/04/20 09/04/20 09/04/20 20:00 20:00 20:06 20:21 Temp 98.6 98.4 Pulse 50 50 53 51 Resp 22 B/P (MAP) 113/66 (82) 112/68 (83) Pulse Ox 98 98 98 98 09/04/20 09/04/20 09/04/20 09/04/20 20:36 20:51 21:06 21:21 Temp 98.4 98.2 98.2 98.1 Pulse 51 51 78 62 Resp 22 B/P (MAP) 110/63 (79) 109/66 (80) 112/71 (85) 105/60 (75) Pulse Ox 98 99 99 97 09/04/20 09/04/20 09/04/20 09/04/20 21:36 21:51 22:06 22:12 Temp 98.1 98.1 98.1 Pulse 68 63 61 54 Resp B/P (MAP) 119/63 (81) 117/69 (85) 121/68 (85) Pulse Ox 96 92 92 99 FiO2 80 09/04/20 09/04/20 09/04/20 09/04/20 22:21 22:36 22:51 23:00 Temp 98.1 98.1 98.2 Pulse 62 63 60 60 Resp 23 B/P (MAP) 121/69 (86) 132/73 (92) 117/66 (83) Pulse Ox 92 97 97 100 FiO2 80 09/04/20 09/04/20 09/04/20 09/04/20 23:00 23:06 23:21 23:36 Temp 98.2 98.2 98.4 Pulse 59 57 57 Resp 22 B/P (MAP) 115/68 (84) 111/68 (82) 112/63 (79) Pulse Ox 97 98 98 O2 Delivery Mechanical Ventilator 09/04/20 09/05/20 09/05/20 09/05/20 23:51 00:06 00:21 00:36 Temp 98.4 98.2 98.2 98.2 Pulse 56 56 58 58 Resp 24 B/P (MAP) 107/64 (78) 111/66 (81) 111/62 (78) 108/61 (77) Pulse Ox 97 96 95 93 09/05/20 09/05/20 09/05/20 09/05/20 00:51 01:07 01:21 01:24 Temp 98.2 98.4 Pulse 57 81 99 84 Resp B/P (MAP) 108/68 (81) 106/59 (75) 105/67 (80) Pulse Ox 92 95 82 95 FiO2 80 09/05/20 09/05/20 09/05/20 09/05/20 01:36 01:51 02:06 02:21 Temp 98.6 99.0 99.1 Pulse 83 89 88 84 Resp B/P (MAP) 112/57 (75) 120/62 (81) 114/60 (78) 113/60 (77) Pulse Ox 93 92 92 91 09/05/20 09/05/20 09/05/20 09/05/20 02:36 02:51 03:00 03:00 Temp 99.3 99.5 Pulse 89 90 88 88 Resp B/P (MAP) 117/62 (80) 122/57 (78) Pulse Ox 91 90 92 92 FiO2 80 09/05/20 09/05/20 09/05/20 09/05/20 03:00 03:00 03:00 03:06 Temp 99.7 Pulse 80 88 85 Resp B/P (MAP) 130/71 (90) Pulse Ox 88 94 88 O2 Delivery Mechanical Ventilator FiO2 80 09/05/20 09/05/20 09/05/20 09/05/20 03:21 03:36 03:51 03:51 Temp 99.7 99.7 99.7 99.7 Pulse 87 108 87 87 Resp 22 B/P (MAP) 115/65 (82) 122/68 (86) 115/67 (83) 115/67 (83) Pulse Ox 91 93 93 93 09/05/20 09/05/20 09/05/20 09/05/20 04:06 04:21 04:36 04:51 Temp 99.9 100.0 100.2 98.2 Pulse 88 93 91 91 Resp B/P (MAP) 116/64 (81) 117/62 (80) 116/67 (83) 121/68 (85) Pulse Ox 94 94 93 94 09/05/20 09/05/20 09/05/20 09/05/20 05:06 05:21 05:36 05:51 Temp 100.2 100.0 100.2 100.2 Pulse 90 98 98 89 Resp 22 22 22 B/P (MAP) 120/72 (88) 124/73 (90) 127/72 (90) 125/66 (85) Pulse Ox 95 95 95 95 09/05/20 09/05/20 09/05/20 09/05/20 06:06 06:21 06:31 06:36 Temp 100.4 100.4 100.0 Pulse 91 93 97 95 Resp 22 B/P (MAP) 128/68 (88) 123/71 (88) 125/69 (87) Pulse Ox 95 95 94 94 FiO2 80 09/05/20 09/05/20 09/05/20 09/05/20 06:51 07:00 07:06 07:15 Temp 100.4 100.4 100.4 100.4 Pulse 93 93 94 93 Resp 22 B/P (MAP) 116/70 (85) 128/69 (88) Pulse Ox 95 95 95 95 09/05/20 09/05/20 09/05/20 09/05/20 07:21 07:30 07:36 07:45 Temp 100.4 100.4 100.4 100.4 Pulse 91 92 95 95 Resp 23 B/P (MAP) 133/74 (93) 140/76 (97) Pulse Ox 95 95 95 94 09/05/20 09/05/20 09/05/20 09/05/20 07:51 08:00 08:00 08:06 Temp 100.6 100.6 100.6 Pulse 97 100 100 99 Resp 28 B/P (MAP) 135/70 (91) 128/74 (92) Pulse Ox 94 93 94 94 FiO2 80 09/05/20 09/05/20 09/05/20 09/05/20 08:15 08:21 08:30 08:36 Temp 100.8 100.8 100.8 100.8 Pulse 109 125 113 105 Resp 36 57 36 32 B/P (MAP) 161/82 (108) 136/66 (89) Pulse Ox 93 83 91 91 09/05/20 09/05/20 09/05/20 09/05/20 08:45 08:51 09:00 09:00 Temp 100.8 100.8 Pulse 107 107 96 107 Resp 34 37 24 37 B/P (MAP) 126/72 (90) Pulse Ox 91 91 94 94 O2 Delivery Mechanical Ventilator FiO2 80 09/05/20 09/05/20 09/05/20 09/05/20 09:00 09:00 09:19 09:45 Pulse 96 96 Resp 24 24 Pulse Ox 94 94 O2 Delivery Mechanical Ventilator FiO2 80 90 09/05/20 09/05/20 09/05/20 09/05/20 10:36 10:45 10:51 11:00 Temp 100.9 100.9 100.9 100.9 Pulse 104 105 104 105 Resp 25 29 31 30 B/P (MAP) 146/74 (98) 141/75 (97) Pulse Ox 92 93 93 94 09/05/20 09/05/20 09/05/20 09/05/20 11:06 11:15 11:21 11:30 Temp 100.9 100.9 100.9 101.1 Pulse 104 107 106 119 Resp 29 30 32 33 B/P (MAP) 139/76 (97) 143/73 (96) Pulse Ox 94 93 93 93 09/05/20 09/05/20 09/05/20 09/05/20 11:36 11:45 11:51 12:00 Temp 101.1 101.1 101.1 Pulse 127 118 116 Resp 38 34 25 B/P (MAP) 129/77 (94) 135/72 (93) Pulse Ox 93 92 93 O2 Delivery Mechanical Ventilator 09/05/20 09/05/20 09/05/20 09/05/20 12:00 12:06 12:14 12:15 Temp 101.1 Pulse 110 107 105 Resp 34 37 24 B/P (MAP) 156/97 (116) Pulse Ox 94 83 94 92 FiO2 90 09/05/20 09/05/20 09/05/20 09/05/20 12:21 12:30 12:30 12:36 Pulse 103 109 99 101 Resp 64 39 32 27 B/P (MAP) 134/78 (96) 131/73 (92) Pulse Ox 84 92 93 FiO2 90 09/05/20 09/05/20 09/05/20 09/05/20 12:45 12:51 13:00 13:06 Pulse 114 103 100 98 Resp 22 B/P (MAP) 133/75 (94) 131/73 (92) Pulse Ox 94 94 96 97 09/05/20 09/05/20 09/05/20 09/05/20 13:21 13:36 13:51 13:52 Pulse 93 95 95 107 Resp 22 B/P (MAP) 131/78 (95) 134/79 (97) 123/73 (90) Pulse Ox 97 97 98 97 FiO2 90 09/05/20 09/05/20 09/05/20 09/05/20 14:06 14:22 14:36 14:51 Temp 64.0 Pulse 88 76 75 Resp 25 B/P (MAP) 120/78 (92) 108/70 (83) 113/65 (81) 113/70 (84) Pulse Ox 97 85 93 94 09/05/20 09/05/20 09/05/20 09/05/20 15:00 15:06 15:06 15:15 Temp 99.7 99.7 99.7 99.5 Pulse 73 78 78 61 Resp 43 43 23 B/P (MAP) 113/74 (87) 113/74 (87) Pulse Ox 94 89 89 96 09/05/20 09/05/20 09/05/20 09/05/20 15:21 15:21 15:30 15:34 Temp 99.5 99.5 99.3 Pulse 59 59 60 67 Resp 22 22 23 B/P (MAP) 114/65 (81) 114/65 (81) Pulse Ox 97 97 98 94 09/05/20 09/05/20 09/05/20 09/05/20 15:35 15:36 15:36 15:45 Temp 99.3 99.3 Pulse 67 67 59 59 Resp 23 22 22 B/P (MAP) 114/70 (85) Pulse Ox 94 94 98 98 FiO2 90 09/05/20 09/05/20 09/05/20 09/05/20 15:51 16:00 16:00 16:06 Temp 99.3 99.3 99.3 Pulse 59 60 62 Resp 22 22 22 B/P (MAP) 115/70 (85) 120/75 (90) Pulse Ox 99 99 99 O2 Delivery Mechanical Ventilator 09/05/20 09/05/20 09/05/20 09/05/20 16:17 18:09 19:00 19:06 Temp 99.7 99.7 Pulse 99 67 64 65 Resp 32 22 B/P (MAP) 122/71 (88) Pulse Ox 92 89 93 93 FiO2 90 90 09/05/20 09/05/20 09/05/20 09/05/20 19:15 19:21 19:30 19:36 Temp 99.7 99.7 99.7 99.7 Pulse 66 66 65 64 Resp B/P (MAP) 119/71 (87) 120/63 (82) Pulse Ox 92 91 91 89 09/05/20 09/05/20 09/05/20 09/05/20 19:45 19:51 20:00 20:00 Temp 99.5 99.5 99.5 Pulse 63 62 60 Resp B/P (MAP) 119/74 (89) Pulse Ox 87 88 88 O2 Delivery Mechanical Ventilator 09/05/20 09/05/20 09/05/20 09/05/20 20:00 20:06 20:15 20:21 Temp 99.5 99.5 99.5 Pulse 59 57 57 59 Resp B/P (MAP) 124/70 (88) 119/67 (84) Pulse Ox 91 89 89 90 FiO2 90 09/05/20 09/05/20 09/05/20 09/05/20 20:21 20:36 20:51 21:00 Temp 99.5 99.5 99.5 Pulse 59 59 61 63 Resp 22 B/P (MAP) 119/67 (84) 118/69 (85) 115/71 (86) Pulse Ox 90 92 92 92 FiO2 90 09/05/20 09/05/20 09/05/20 09/05/20 21:00 21:00 21:00 21:06 Temp 99.5 Pulse 63 63 66 61 Resp B/P (MAP) 117/70 (86) Pulse Ox 92 92 90 92 O2 Delivery Mechanical Ventilator FiO2 90 09/05/20 09/05/20 09/05/2025/20 21:21 21:36 21:51 22:06 Temp 99.5 99.5 99.3 99.3 Pulse 59 69 66 70 Resp B/P (MAP) 115/64 (81) 108/58 (75) 112/59 (76) 107/60 (76) Pulse Ox 92 90 91 89 09/05/20 09/05/20 09/05/20 09/05/20 22:21 22:36 22:51 23:06 Temp 99.3 99.1 99.1 99.1 Pulse 67 69 66 66 Resp 23 B/P (MAP) 109/57 (74) 113/67 (82) 109/62 (78) 105/60 (75) Pulse Ox 88 86 91 91 09/05/20 09/05/20 09/05/20 09/06/20 23:21 23:36 23:51 00:00 Temp 99.1 99.1 99.1 Pulse 63 60 60 59 Resp B/P (MAP) 105/63 (77) 107/64 (78) 110/63 (79) Pulse Ox 92 92 92 91 FiO2 90 09/06/20 09/06/20 09/06/20 09/06/20 00:00 00:06 00:21 00:21 Temp 99.1 99.1 99.1 Pulse 58 59 59 Resp B/P (MAP) 113/70 (84) 114/69 (84) 114/69 (84) Pulse Ox 92 90 90 O2 Delivery Mechanical Ventilator 09/06/20 09/06/20 09/06/20 09/06/20 00:36 00:51 01:06 01:20 Temp 99.1 99.1 99.1 Pulse 60 58 59 58 Resp B/P (MAP) 115/67 (83) 114/64 (81) 111/65 (80) Pulse Ox 89 90 91 91 FiO2 90 09/06/20 09/06/20 09/06/20 09/06/20 01:21 01:36 01:51 02:06 Temp 99.3 99.3 99.3 99.3 Pulse 62 59 59 59 Resp 22 B/P (MAP) 107/61 (76) 108/57 (74) 108/65 (79) 105/61 (76) Pulse Ox 90 91 91 91 09/06/20 09/06/20 09/06/20 09/06/20 02:21 02:36 02:51 03:00 Temp 99.3 99.3 99.3 Pulse 60 59 59 56 Resp 22 22 10 22 B/P (MAP) 109/59 (76) Pulse Ox 90 89 89 90 09/06/20 09/06/20 09/06/20 09/06/20 03:00 03:06 04:00 04:00 Temp 99.3 Pulse 57 68 60 Resp 22 23 22 Pulse Ox 90 78 90 O2 Delivery Mechanical Ventilator FiO2 90 09/06/20 09/06/20 09/06/20 09/06/20 04:48 07:00 07:30 08:00 Temp 98.4 98.6 98.8 Pulse 56 53 56 72 Resp 22 22 B/P (MAP) 116/66 (83) 115/65 (82) 101/58 (72) Pulse Ox 90 91 91 74 FiO2 90 09/06/20 09/06/20 09/06/20 09/06/20 08:00 08:00 08:14 08:15 Temp 99.0 99.0 Pulse 60 95 84 Resp 22 28 18 B/P (MAP) 126/70 (88) Pulse Ox 90 79 85 O2 Delivery Mechanical Ventilator FiO2 100 09/06/20 09/06/20 09/06/20 09/06/20 08:30 09:00 09:15 09:21 Temp 99.3 100.2 100.4 Pulse 86 91 55 Resp 22 32 22 B/P (MAP) 134/62 (86) 135/62 (86) 144/68 (93) Pulse Ox 83 84 73 91 09/06/20 09/06/20 09/06/20 09/06/20 09:25 09:31 09:32 09:47 Pulse 55 55 55 55 Resp 22 22 22 22 Pulse Ox 91 91 91 91 O2 Delivery Mechanical Ventilator FiO2 90 100 09/06/20 09/06/20 09/06/20 09/06/20 10:00 10:01 10:14 10:15 Pulse 84 78 78 78 Resp 22 21 22 22 B/P (MAP) 93/51 (65) 88/49 (62) 103/54 (70) Pulse Ox 88 88 91 91 09/06/20 09/06/20 09/06/20 09/06/20 10:29 10:30 11:00 11:15 Pulse 80 80 83 80 Resp 22 22 B/P (MAP) 112/59 (76) 126/68 (87) Pulse Ox 93 93 95 95 09/06/20 09/06/20 09/06/20 09/06/20 11:21 11:30 12:00 12:00 Pulse 87 84 60 Resp 22 B/P (MAP) 126/67 (86) Pulse Ox 95 96 90 O2 Delivery Mechanical Ventilator FiO2 100 100 09/06/20 09/06/20 09/06/20 09/06/20 12:00 12:30 12:45 12:59 Temp 101.3 101.1 Pulse 87 73 77 77 Resp 22 B/P (MAP) 102/54 (70) 94/53 (67) 97/57 (70) Pulse Ox 97 96 96 96 09/06/20 09/06/20 09/06/20 09/06/20 13:00 13:14 13:15 13:29 Temp 101.1 100.9 100.9 100.8 Pulse 76 70 70 69 Resp 23 B/P (MAP) 99/59 (72) 99/58 (72) Pulse Ox 97 97 98 98 09/06/20 09/06/20 09/06/20 09/06/20 13:30 14:00 15:41 15:42 Temp 100.8 100.6 Pulse 67 64 61 61 Resp 22 B/P (MAP) 125/66 (85) Pulse Ox 99 99 99 99 FiO2 100 09/06/20 09/06/20 09/06/20 09/06/20 15:44 15:44 16:00 19:00 Temp 99.5 Pulse 61 61 60 53 Resp 22 Pulse Ox 99 99 90 100 O2 Delivery Mechanical Ventilator FiO2 100 100 09/06/20 09/06/20 09/06/20 09/06/20 19:14 19:15 19:30 19:30 Temp 99.3 99.3 Pulse 61 63 69 67 Resp 22 B/P (MAP) 111/59 (76) Pulse Ox 98 100 99 97 FiO2 100 09/06/20 09/06/20 09/06/20 09/06/20 19:30 19:30 19:44 19:45 Temp 99.3 99.5 99.5 Pulse 69 67 67 69 Resp B/P (MAP) 102/47 (65) 104/59 (74) Pulse Ox 99 97 98 99 09/06/20 09/06/20 09/06/20 09/06/20 19:59 20:00 20:00 20:00 Temp 99.7 99.7 Pulse 86 60 80 Resp 22 22 B/P (MAP) 107/62 (77) Pulse Ox 88 90 95 O2 Delivery Mechanical Ventilator FiO2 100 09/06/20 09/06/20 09/06/20 09/06/20 20:14 20:15 21:59 22:00 Temp 99.7 99.7 99.5 99.5 Pulse 70 71 56 57 Resp B/P (MAP) 114/61 (78) 99/55 (70) Pulse Ox 100 100 100 100 09/06/20 09/06/20 09/06/20 09/06/20 22:14 22:15 22:29 22:30 Temp 99.3 99.3 99.3 99.3 Pulse 56 56 54 53 Resp 22 B/P (MAP) 104/51 (68) 100/57 (71) Pulse Ox 100 100 100 100 09/06/20 09/06/20 09/06/20 09/06/20 22:44 22:45 22:59 23:00 Temp 99.3 99.3 99.3 99.3 Pulse 54 52 52 52 Resp 20 22 B/P (MAP) 101/56 (71) 104/58 (73) Pulse Ox 100 100 100 100 09/06/20 09/06/20 09/06/20 09/06/20 23:01 23:14 23:15 23:29 Temp 99.3 99.3 99.3 Pulse 55 52 52 54 Resp 22 18 23 B/P (MAP) 103/56 (72) 117/67 (84) Pulse Ox 100 100 100 100 FiO2 100 09/06/20 09/06/20 09/06/20 09/07/20 23:30 23:45 23:59 00:00 Temp 99.3 99.3 99.3 Pulse 54 61 66 Resp B/P (MAP) 101/54 (70) 110/55 (73) Pulse Ox 100 100 100 O2 Delivery Mechanical Ventilator 09/07/20 09/07/20 09/07/20 09/07/20 00:00 00:00 00:14 00:15 Temp 99.3 99.5 99.5 Pulse 60 65 59 61 Resp B/P (MAP) 104/55 (71) Pulse Ox 90 100 100 100 FiO2 100 09/07/20 09/07/20 09/07/20 09/07/20 01:45 01:58 02:00 02:09 Temp 99.5 99.5 Pulse 79 79 56 Resp B/P (MAP) 139/73 (95) Pulse Ox 100 90 100 FiO2 100 09/07/20 09/07/20 09/07/20 09/07/20 02:13 02:15 02:28 02:30 Temp 99.5 99.5 99.5 99.5 Pulse 83 82 73 70 Resp B/P (MAP) 131/64 (86) 123/64 (83) Pulse Ox 92 92 94 94 09/07/20 09/07/20 09/07/20 09/07/20 02:43 02:45 02:53 02:58 Temp 99.5 99.5 99.7 Pulse 73 70 69 Resp B/P (MAP) 114/68 (83) 116/65 (82) Pulse Ox 95 95 93 94 09/07/20 09/07/20 09/07/20 09/07/20 03:00 03:14 03:15 03:29 Temp 99.7 99.7 99.7 99.7 Pulse 70 64 66 75 Resp Pulse Ox 94 94 94 92 09/07/20 09/07/20 09/07/20 09/07/20 03:30 03:43 03:45 03:58 Temp 99.7 99.7 99.7 99.7 Pulse 74 74 74 83 Resp B/P (MAP) 114/63 (80) 100/61 (74) Pulse Ox 93 93 92 96 09/07/20 09/07/20 09/07/20 09/07/20 04:00 04:00 04:00 05:04 Temp 99.7 Pulse 76 60 71 Resp 22 22 22 Pulse Ox 96 90 92 O2 Delivery Mechanical Ventilator FiO2 100 09/07/20 09/07/20 09/07/20 09/07/20 05:04 05:04 07:00 07:13 Temp 100.0 100.0 Pulse 73 71 63 62 Resp 22 22 22 22 B/P (MAP) 100/59 (73) Pulse Ox 97 92 98 98 FiO2 100 09/07/20 09/07/20 09/07/20 09/07/20 07:15 07:28 07:28 07:43 Temp 100.0 100.0 100.0 100.0 Pulse 63 61 61 61 Resp 22 22 22 23 B/P (MAP) 107/67 (80) 107/67 (80) 101/62 (75) Pulse Ox 98 97 97 99 09/07/20 09/07/20 09/07/20 09/07/20 07:58 08:00 08:13 08:28 Temp 100.2 100.2 100.2 Pulse 67 24 89 102 Resp 20 29 B/P (MAP) 102/57 (72) 109/63 (78) 132/69 (90) Pulse Ox 98 92 97 79 FiO2 100 09/07/20 09/07/20 09/07/20 09/07/20 08:43 08:45 08:45 08:45 Pulse 91 86 86 86 Resp 22 29 29 29 B/P (MAP) 117/63 (81) Pulse Ox 91 100 97 97 FiO2 100 09/07/20 09/07/20 09/07/20 09/07/20 08:45 08:58 09:13 09:28 Pulse 86 87 85 85 Resp 29 32 22 22 B/P (MAP) 108/64 (79) 110/58 (75) 97/54 (68) Pulse Ox 97 94 97 97 O2 Delivery Mechanical Ventilator FiO2 100 09/07/20 09/07/20 09/07/20 09/07/20 09:30 09:43 09:44 09:45 Pulse 81 85 86 Resp 22 22 22 B/P (MAP) 105/54 (71) Pulse Ox 97 97 97 O2 Delivery Mechanical Ventilator 09/07/20 09/07/20 09/07/20 09/07/20 09:58 10:00 10:13 10:15 Pulse 86 89 91 92 Resp 24 B/P (MAP) 101/49 (66) 115/53 (73) Pulse Ox 98 97 98 98 09/07/20 09/07/20 09/07/20 09/07/20 10:29 10:30 10:35 10:43 Pulse 86 85 83 79 Resp B/P (MAP) 99/45 (63) 92/40 (57) Pulse Ox 93 93 93 92 09/07/20 09/07/20 09/07/20 09/07/20 10:45 10:59 11:00 11:13 Temp 100.4 100.4 Pulse 79 71 77 Resp B/P (MAP) 121/53 (75) 108/60 (76) Pulse Ox 93 90 90 92 09/07/20 09/07/20 09/07/20 09/07/20 11:15 11:28 11:43 11:45 Temp 100.4 100.4 100.4 100.4 Pulse 78 76 65 66 Resp 22 B/P (MAP) 107/56 (73) 104/59 (74) Pulse Ox 92 92 94 94 09/07/20 09/07/20 09/07/20 09/07/20 11:58 12:00 12:10 12:12 Temp 100.4 100.4 Pulse 62 61 61 Resp 22 B/P (MAP) 105/59 (74) Pulse Ox 95 96 96 O2 Delivery Mechanical Ventilator FiO2 100 09/07/20 09/07/20 09/07/20 09/07/20 12:13 12:15 12:28 12:30 Temp 100.4 100.4 100.2 100.2 Pulse 60 59 61 61 Resp 22 23 22 B/P (MAP) 104/62 (76) 107/62 (77) Pulse Ox 97 97 97 97 09/07/20 09/07/20 09/07/20 09/07/20 12:43 12:45 12:58 13:00 Temp 100.2 100.2 100.2 100.2 Pulse 58 58 56 56 Resp 22 B/P (MAP) 108/59 (75) 107/64 (78) Pulse Ox 98 98 99 99 11/09/07/20 09/07/20 09/07/20 13:13 13:15 13:24 13:28 Temp 100.0 100.0 100.0 Pulse 57 56 66 58 Resp 22 B/P (MAP) 103/62 (76) 104/63 (77) Pulse Ox 98 98 93 97 FiO2 100 09/07/20 09/07/20 09/07/20 09/07/20 13:30 13:43 13:45 13:58 Temp 100.0 100.0 100.0 99.9 Pulse 57 56 58 56 Resp 22 B/P (MAP) 107/62 (77) 107/62 (77) Pulse Ox 98 98 98 98 09/07/20 09/07/20 09/07/20 09/07/20 14:00 14:13 14:15 14:28 Temp 99.9 99.9 99.9 99.9 Pulse 56 55 55 55 Resp B/P (MAP) 104/64 (77) 104/61 (75) Pulse Ox 98 98 97 97 09/07/20 09/07/20 09/07/20 09/07/20 14:30 14:45 14:59 15:00 Temp 99.9 99.7 99.7 99.7 Pulse 55 55 54 55 Resp 22 B/P (MAP) 102/64 (77) Pulse Ox 97 97 97 97 09/07/20 09/07/20 09/07/20 09/07/20 15:15 15:29 15:30 15:45 Temp 99.7 99.7 99.7 99.5 Pulse 55 54 54 54 Resp 22 B/P (MAP) 108/64 (79) Pulse Ox 97 98 98 97 09/07/20 09/07/20 09/07/20 09/07/20 15:59 16:00 16:15 16:19 Temp 99.5 99.5 99.5 Pulse 53 55 53 55 Resp 23 B/P (MAP) 104/62 (76) Pulse Ox 97 97 97 97 09/07/20 09/07/20 09/07/20 09/07/20 16:19 16:19 16:29 16:30 Temp 99.3 99.3 Pulse 55 55 52 53 Resp B/P (MAP) 100/58 (72) Pulse Ox 97 97 96 97 FiO2 100 09/07/20 09/07/20 09/07/20 09/07/20 16:30 16:40 16:45 16:59 Temp 99.3 99.3 99.3 Pulse 53 55 55 52 Resp B/P (MAP) 106/61 (76) Pulse Ox 97 97 97 95 FiO2 100 09/07/20 09/07/20 09/07/20 09/07/20 17:00 17:15 17:29 17:30 Temp 99.3 99.1 99.1 99.1 Pulse 53 71 57 57 Resp B/P (MAP) 108/58 (75) Pulse Ox 94 85 96 97 09/07/20 09/07/20 09/07/20 09/07/20 17:37 17:45 17:59 18:00 Temp 99.1 99.1 99.1 Pulse 57 54 54 Resp B/P (MAP) 103/60 (74) Pulse Ox 98 97 98 O2 Delivery Mechanical Ventilator 09/07/20 09/07/20 09/07/20 09/07/20 19:00 19:15 19:29 19:30 Temp 99.0 99.0 99.0 99.0 Pulse 51 52 55 53 Resp B/P (MAP) 119/68 (85) Pulse Ox 98 98 96 95 09/07/20 09/07/20 09/07/20 09/07/20 19:45 20:00 20:00 20:00 Temp 99.0 99.0 Pulse 60 53 60 Resp Pulse Ox 93 95 90 O2 Delivery Mechanical Ventilator FiO2 100 09/07/20 09/07/20 09/07/20 09/07/20 20:15 20:15 20:23 20:29 Temp 99.0 99.0 99.0 Pulse 53 52 54 57 Resp B/P (MAP) 110/62 (78) 108/58 (75) Pulse Ox 95 95 98 99 O2 Delivery Mechanical Ventilator FiO2 100 09/07/20 09/07/20 09/07/20 09/07/20 20:30 20:59 21:02 21:02 Temp 99.0 Pulse 58 52 56 52 Resp 23 30 23 22 Pulse Ox 99 95 95 95 FiO2 100 09/07/20 09/07/20 09/07/20 09/07/20 22:30 22:45 22:59 23:00 Temp 99.0 99.1 99.1 99.1 Pulse 56 57 57 55 Resp 23 B/P (MAP) 113/60 (77) Pulse Ox 96 97 97 97 09/07/20 09/07/20 09/07/20 09/07/20 23:15 23:29 23:30 23:45 Temp 99.1 99.1 99.1 99.3 Pulse 58 57 57 58 Resp B/P (MAP) 119/65 (83) Pulse Ox 97 96 96 97 09/07/20 09/07/20 09/08/20 09/08/20 23:58 23:59 00:00 00:00 Temp 99.3 99.3 Pulse 61 60 59 Resp B/P (MAP) 113/61 (78) Pulse Ox 96 97 97 O2 Delivery Mechanical Ventilator FiO2 100 09/08/20 09/08/20 09/08/20 09/08/20 00:00 00:15 00:29 00:30 Temp 99.3 99.3 99.3 Pulse 60 62 68 63 Resp B/P (MAP) 128/65 (86) Pulse Ox 90 97 97 96 FiO2 100 09/08/20 09/08/20 09/08/20 09/08/20 00:45 00:59 01:00 01:15 Temp 99.3 99.5 99.5 99.7 Pulse 68 75 74 70 Resp 24 B/P (MAP) 133/70 (91) Pulse Ox 97 99 99 97 09/08/20 09/08/20 09/08/20 09/08/20 01:29 01:30 02:00 02:15 Temp 99.7 99.7 99.9 99.9 Pulse 68 70 65 60 Resp 17 B/P (MAP) 117/62 (80) Pulse Ox 95 97 94 95 09/08/20 09/08/20 09/08/20 09/08/20 02:30 02:45 03:00 03:13 Temp 99.9 99.7 99.0 99.9 Pulse 63 58 Resp 56 23 B/P (MAP) 147/68 (94) Pulse Ox 94 96 97 93 09/08/20 09/08/20 09/08/20 09/08/20 03:15 03:20 03:30 03:43 Temp 99.9 99.9 99.7 Pulse 82 61 83 74 Resp 22 B/P (MAP) 142/78 (99) Pulse Ox 98 96 93 92 09/08/20 09/08/20 09/08/20 09/08/20 03:45 03:45 04:00 04:00 Temp 99.7 99.7 Pulse 63 78 66 60 Resp 22 Pulse Ox 97 92 97 90 FiO2 100 09/08/20 09/08/20 09/08/20 09/08/20 04:00 04:13 04:15 04:30 Temp 99.9 99.9 99.7 Pulse 56 57 54 Resp B/P (MAP) 131/75 (93) Pulse Ox 97 98 99 O2 Delivery Mechanical Ventilator 09/08/20 09/08/20 09/08/20 09/08/20 04:42 04:45 04:57 05:00 Temp 99.9 99.9 99.9 Pulse 53 52 62 53 Resp B/P (MAP) 124/75 (91) Pulse Ox 99 99 97 99 FiO2 100 09/08/20 09/08/20 09/08/20 09/08/20 05:12 05:15 07:00 07:12 Temp 99.9 99.9 99.9 99.9 Pulse 54 54 58 59 Resp 22 B/P (MAP) 119/75 (90) 126/73 (90) Pulse Ox 100 100 98 98 09/08/20 09/08/20 09/08/20 09/08/20 07:30 07:30 07:42 07:45 Temp 100.0 100.0 100.0 Pulse 60 58 63 60 Resp 23 B/P (MAP) 125/69 (87) Pulse Ox 99 98 99 99 FiO2 100 09/08/20 09/08/20 09/08/20 09/08/20 08:00 08:00 08:12 08:15 Temp 100.0 100.0 100.0 Pulse 65 63 67 Resp 25 B/P (MAP) 131/71 (91) Pulse Ox 98 98 99 O2 Delivery Mechanical Ventilator 09/08/20 09/08/20 09/08/20 09/08/20 08:30 08:42 08:45 08:46 Temp 100.0 100.2 100.2 Pulse 86 68 68 59 Resp 29 23 B/P (MAP) 139/86 (103) Pulse Ox 95 95 95 98 09/08/20 09/08/20 09/08/20 09/08/20 08:47 08:48 08:49 09:00 Temp 100.2 Pulse 59 59 59 70 Resp 23 28 Pulse Ox 98 98 98 93 O2 Delivery Mechanical Ventilator FiO2 100 100 09/08/20 09/08/20 09/08/20 09/08/20 09:12 09:15 09:30 09:42 Temp 100.2 100.2 100.4 100.4 Pulse 65 74 81 86 Resp 29 32 31 34 B/P (MAP) 136/74 (94) 137/66 (89) Pulse Ox 93 94 94 92 09/08/20 09/08/20 09/08/20 09/08/20 09:45 10:00 10:12 10:15 Temp 100.4 100.6 100.6 100.6 Pulse 90 76 77 77 Resp 34 36 33 38 B/P (MAP) 124/60 (81) Pulse Ox 92 92 93 92 09/08/20 09/08/20 09/08/20 09/08/20 10:30 10:42 10:42 10:45 Temp 100.6 100.6 100.6 100.6 Pulse 81 73 73 66 Resp 34 22 22 22 B/P (MAP) 123/67 (85) 123/67 (85) Pulse Ox 93 96 96 96 09/08/20 09/08/20 09/08/20 09/08/20 10:57 11:12 11:32 11:42 Temp 100.4 100.4 100.4 100.4 Pulse 60 61 73 68 Resp 22 22 22 23 B/P (MAP) 120/65 (83) 124/63 (83) Pulse Ox 97 98 89 89 09/08/20 09/08/20 09/08/20 09/08/20 11:43 11:44 11:57 12:01 Temp 100.4 100.4 Pulse 70 65 59 Resp B/P (MAP) 124/64 (84) 124/64 Pulse Ox 90 89 90 FiO2 100 09/08/20 09/08/20 09/08/20 09/08/20 12:01 12:09 12:12 12:42 Temp 100.4 100.4 Pulse 75 52 59 Resp B/P (MAP) 138/75 (96) Pulse Ox 93 91 90 O2 Delivery Mechanical Ventilator FiO2 100 09/08/20 09/08/20 09/08/20 09/08/20 12:43 13:12 13:42 14:12 Temp 100.4 100.4 100.4 100.2 Pulse 58 57 58 52 Resp B/P (MAP) 120/66 (84) 113/68 (83) 126/72 (90) 135/75 (95) Pulse Ox 93 93 93 95 09/08/20 09/08/20 09/08/20 09/08/20 14:42 14:43 14:43 15:13 Temp 100.0 100.0 100.0 99.9 Pulse 58 57 57 55 Resp B/P (MAP) 129/62 (84) 129/62 (84) 118/67 (84) Pulse Ox 97 97 93 09/08/20 09/08/20 09/08/20 09/08/20 15:14 15:16 15:16 15:43 Temp 99.9 Pulse 56 56 56 53 Resp B/P (MAP) 122/65 (84) Pulse Ox 93 93 93 91 FiO2 100 09/08/20 09/08/20 09/08/20 09/08/20 16:05 16:12 16:25 16:43 Temp 99.7 99.7 Pulse 51 50 51 Resp B/P (MAP) 129/72 (91) 129/65 (86) Pulse Ox 93 92 94 O2 Delivery Mechanical Ventilator FiO2 100 09/08/20 09/08/20 09/08/20 09/08/20 17:13 17:43 17:43 17:58 Temp 99.5 99.3 99.3 99.3 Pulse 50 51 51 52 Resp B/P (MAP) 128/67 (87) 117/65 (82) 117/65 (82) Pulse Ox 93 93 93 92 09/08/20 09/08/20 09/08/20 09/08/20 18:12 18:13 18:28 18:42 Temp 99.1 99.1 99.1 99.0 Pulse 51 51 51 51 Resp 22 22 B/P (MAP) 115/63 (80) 113/64 (80) Pulse Ox 91 91 92 90 09/08/20 09/08/20 09/08/20 09/08/20 18:43 20:00 20:00 20:57 Temp 99.0 Pulse 51 60 48 Resp 22 Pulse Ox 91 90 99 O2 Delivery Mechanical Ventilator FiO2 100 100 09/08/20 09/08/20 09/08/20 09/08/20 20:58 20:59 20:59 22:15 Temp 98.2 Pulse 48 50 48 50 Resp 23 Pulse Ox 99 99 99 99 O2 Delivery Mechanical Ventilator FiO2 100 09/08/20 09/08/20 09/08/20 09/08/20 22:30 22:42 22:45 23:00 Temp 98.2 98.2 98.2 98.4 Pulse 58 59 58 56 Resp 23 23 B/P (MAP) 113/55 (74) Pulse Ox 99 100 99 98 09/08/20 09/08/20 09/08/20 09/08/20 23:12 23:15 23:30 23:38 Temp 98.4 98.6 98.6 Pulse 60 64 71 68 Resp B/P (MAP) 118/56 (76) Pulse Ox 98 98 99 100 FiO2 100 09/08/20 09/08/20 09/09/20 09/09/20 23:42 23:45 00:00 00:00 Temp 98.8 98.8 99.0 Pulse 77 71 75 Resp 22 B/P (MAP) 126/64 (84) Pulse Ox 98 98 98 O2 Delivery Mechanical Ventilator 09/09/20 09/09/20 09/09/20 09/09/20 00:00 00:13 00:15 00:30 Temp 99.0 99.0 99.1 Pulse 60 76 73 71 Resp 22 B/P (MAP) 128/62 (84) Pulse Ox 90 99 98 98 FiO2 100 09/09/20 09/09/20 09/09/20 09/09/20 00:43 00:45 01:00 01:12 Temp 99.1 99.1 99.3 99.3 Pulse 73 69 70 70 Resp 22 B/P (MAP) 122/52 (75) 120/57 (78) Pulse Ox 99 99 98 98 09/09/20 09/09/20 09/09/20 09/09/20 01:15 01:43 01:45 02:00 Temp 99.3 99.5 99.5 99.7 Pulse 69 66 66 59 Resp 24 21 B/P (MAP) 116/56 (76) Pulse Ox 97 97 96 97 09/09/20 09/09/20 09/09/20 09/09/20 02:12 02:15 02:30 02:42 Temp 99.7 99.7 99.9 99.9 Pulse 63 65 71 62 Resp 38 22 B/P (MAP) 116/56 (76) 107/50 (69) Pulse Ox 98 98 94 99 09/09/20 09/09/20 09/09/20 09/09/20 02:45 03:00 03:15 03:30 Temp 99.9 100.0 Pulse 62 57 Resp Pulse Ox 98 99 99 94 09/09/20 09/09/20 09/09/20 09/09/20 03:37 03:45 04:00 04:00 Temp 100.0 100.0 99.9 Pulse 74 75 75 60 Resp B/P (MAP) 158/70 (99) Pulse Ox 89 94 95 90 FiO2 100 09/09/20 09/09/20 09/09/20 09/09/20 04:00 04:00 04:00 04:00 Pulse 67 68 67 Resp 22 Pulse Ox 97 99 97 O2 Delivery Mechanical Ventilator FiO2 100 09/09/20 09/09/20 09/09/20 09/09/20 04:07 04:15 04:30 04:37 Temp 99.9 99.9 99.9 99.9 Pulse 76 70 74 74 Resp 22 B/P (MAP) 143/72 (95) 130/64 (86) Pulse Ox 95 95 95 96 09/09/20 09/09/20 09/09/20 11/29/20 04:45 05:00 05:07 05:15 Temp 99.9 99.9 99.9 99.9 Pulse 72 63 70 76 Resp 24 B/P (MAP) 128/72 (90) Pulse Ox 95 96 94 96 09/09/20 09/09/20 09/09/20 09/09/20 05:30 05:35 05:37 05:45 Temp 99.9 99.9 99.9 Pulse 92 92 91 Resp B/P (MAP) 151/75 (100) Pulse Ox 95 99 95 93 09/09/20 09/09/20 09/09/20 09/09/20 06:00 06:07 06:15 06:30 Temp 100.0 100.0 100.2 100.4 Pulse 86 91 96 93 Resp B/P (MAP) 148/77 (100) Pulse Ox 92 91 94 93 09/09/20 09/09/20 09/09/20 09/09/20 07:00 07:07 07:15 07:30 Temp 100.6 100.8 100.8 100.8 Pulse 97 95 94 102 Resp B/P (MAP) 157/64 (95) Pulse Ox 94 94 94 93 09/09/20 09/09/20 09/09/20 09/09/20 08:00 08:00 08:07 08:15 Temp 100.9 100.9 100.9 Pulse 101 60 97 97 Resp 32 B/P (MAP) 127/65 (85) Pulse Ox 91 90 92 91 FiO2 100 09/09/20 09/09/20 09/09/20 09/09/20 08:30 08:38 08:50 08:50 Temp 100.9 Pulse 92 60 94 Resp 32 33 33 Pulse Ox 93 93 93 O2 Delivery Mechanical Ventilator FiO2 100 09/09/20 09/09/20 09/09/20 09/09/20 08:50 08:50 09:00 09:07 Temp 100.9 100.9 Pulse 94 60 96 96 Resp 33 33 32 34 B/P (MAP) 135/69 (91) Pulse Ox 93 93 93 92 FiO2 100 09/09/20 09/09/20 09/09/20 09/09/20 09:15 09:30 10:00 10:07 Temp 100.9 100.9 100.4 100.4 Pulse 97 94 74 73 Resp 32 22 22 B/P (MAP) 119/64 (82) Pulse Ox 94 87 93 93 09/09/20 09/09/20 09/09/20 09/09/20 10:15 10:30 11:00 11:07 Temp 100.2 100.4 100.4 100.6 Pulse 84 92 95 97 Resp 23 22 B/P (MAP) 148/76 (100) Pulse Ox 92 92 89 90 09/09/20 09/09/20 09/09/20 09/09/20 11:15 11:30 12:00 12:00 Temp 100.6 100.8 Pulse 98 100 60 Resp 22 Pulse Ox 90 90 90 O2 Delivery Mechanical Ventilator FiO2 100 09/09/20 09/09/20 09/09/20 09/09/20 12:00 12:07 12:15 12:29 Temp 100.8 100.8 100.8 Pulse 96 100 100 Resp 32 B/P (MAP) 143/72 (95) 136/73 Pulse Ox 91 91 88 09/09/20 09/09/20 09/09/20 09/09/20 12:30 13:00 13:07 13:10 Temp 100.8 100.4 100.4 Pulse 93 74 72 72 Resp 32 23 27 27 B/P (MAP) 144/83 (103) Pulse Ox 92 94 95 95 FiO2 100 09/09/20 09/09/20 09/09/20 09/09/20 13:15 13:30 14:00 14:07 Temp 100.4 100.4 100.2 100.2 Pulse 76 77 78 69 Resp 27 24 26 B/P (MAP) 117/74 (88) Pulse Ox 94 93 91 95 09/09/20 09/09/20 09/09/20 09/09/20 14:15 14:30 15:00 15:00 Temp 100.2 100.0 Pulse 74 66 66 90 Resp 23 28 28 Pulse Ox 96 96 96 96 09/09/20 09/09/20 09/09/20 09/09/20 15:00 15:07 15:15 15:30 Temp 99.7 99.9 99.9 Pulse 90 82 79 76 Resp 28 13 B/P (MAP) 152/82 (105) 138/82 (100) Pulse Ox 96 97 98 99 09/09/20 09/09/20 09/09/20 09/09/20 16:00 16:00 16:00 18:21 Pulse 63 60 63 Resp 22 22 22 Pulse Ox 94 90 94 O2 Delivery Mechanical Ventilator FiO2 100 100 100 09/09/20 09/09/20 09/09/20 09/09/20 19:00 19:07 19:15 19:30 Temp 99.1 99.1 99.1 99.0 Pulse 63 61 63 62 Resp 23 B/P (MAP) 142/76 (98) Pulse Ox 93 93 94 94 09/09/20 09/09/20 09/09/20 09/09/20 19:37 19:45 20:00 20:00 Temp 99.0 99.0 Pulse 63 62 61 Resp 23 B/P (MAP) 154/79 (104) Pulse Ox 93 92 92 O2 Delivery Mechanical Ventilator FiO2 100 09/09/20 09/09/20 09/09/20 09/09/20 20:00 20:00 20:07 20:15 Temp 99.0 98.8 98.8 Pulse 60 62 63 61 Resp 24 22 23 B/P (MAP) 144/77 (99) Pulse Ox 90 92 92 92 FiO2 100 09/09/20 09/09/20 09/09/20 09/09/20 20:30 20:37 20:45 21:00 Temp 98.6 98.6 98.6 98.4 Pulse 81 62 62 64 Resp 22 22 B/P (MAP) 133/69 (90) Pulse Ox 75 90 93 94 09/09/20 09/09/20 09/09/20 09/09/20 21:07 21:15 21:30 21:37 Temp 98.2 98.2 98.2 98.1 Pulse 64 63 62 60 Resp 22 22 22 22 B/P (MAP) 139/75 (96) 135/73 (93) Pulse Ox 94 94 94 94 09/09/20 09/09/20 09/09/20 09/09/20 21:45 22:57 22:57 22:58 Temp 98.1 Pulse 61 61 64 61 Resp 22 23 22 23 Pulse Ox 95 92 94 92 O2 Delivery Mechanical Ventilator FiO2 100 100 09/09/20 09/09/20 09/09/20 09/09/20 22:58 23:00 23:07 23:15 Temp 97.7 97.7 97.7 Pulse 64 55 55 56 Resp 22 22 B/P (MAP) 127/69 (88) Pulse Ox 94 93 95 95 09/09/20 09/09/20 09/09/20 09/10/20 23:30 23:37 23:45 00:00 Temp 97.7 97.7 97.5 97.5 Pulse 54 54 54 54 Resp 22 B/P (MAP) 136/73 (94) Pulse Ox 95 94 91 94 09/10/20 09/10/20 09/10/20 09/10/20 00:00 00:00 00:07 00:30 Temp 97.5 Pulse 60 56 55 Resp B/P (MAP) 132/71 (91) Pulse Ox 90 93 94 O2 Delivery Mechanical Ventilator FiO2 100 100 09/10/20 09/10/20 09/10/20 09/10/20 02:15 02:30 02:37 02:45 Temp 97.2 97.2 97.2 97.2 Pulse 55 54 54 53 Resp 22 B/P (MAP) 128/68 (88) Pulse Ox 92 92 93 91 09/10/20 09/10/20 09/10/20 09/10/20 03:00 03:00 03:00 03:07 Temp 97.0 97.0 Pulse 55 53 55 62 Resp 22 B/P (MAP) 132/70 (90) Pulse Ox 92 92 94 91 09/10/20 09/10/20 09/10/20 09/10/20 03:15 03:30 03:32 03:37 Temp 97.0 97.0 97.0 Pulse 58 64 55 72 Resp 24 B/P (MAP) 133/66 (88) Pulse Ox 89 92 92 93 FiO2 100 09/10/20 09/10/20 09/10/20 09/10/20 03:45 04:00 04:00 04:00 Temp 97.2 97.2 Pulse 77 60 85 Resp 26 22 28 Pulse Ox 92 90 88 O2 Delivery Mechanical Ventilator FiO2 100 09/10/20 09/10/20 09/10/20 09/10/20 04:07 04:15 04:30 04:37 Temp 97.3 97.5 97.7 97.9 Pulse 84 88 110 93 Resp 22 B/P (MAP) 130/67 (88) 135/69 (91) Pulse Ox 87 84 83 85 09/10/20 09/10/20 09/10/20 09/10/20 04:45 05:00 05:07 05:15 Temp 97.9 98.1 98.2 98.2 Pulse 90 88 87 89 Resp B/P (MAP) 136/66 (89) Pulse Ox 88 89 90 90 09/10/20 09/10/20 09/10/20 09/10/20 06:13 06:17 07:00 07:07 Temp 99.1 99.3 Pulse 69 93 95 Resp B/P (MAP) 150/65 178/78 (111) Pulse Ox 89 90 89 FiO2 100 09/10/20 09/10/20 09/10/20 09/10/20 07:10 07:20 07:30 07:37 Temp 99.3 99.5 99.7 99.9 Pulse 92 99 105 111 Resp B/P (MAP) 212/99 (136) Pulse Ox 89 89 88 87 09/10/20 09/10/20 09/10/20 09/10/20 07:40 07:50 07:50 07:58 Temp 100.0 100.4 100.4 Pulse 114 115 114 121 Resp B/P (MAP) 132/65 (87) Pulse Ox 86 86 87 83 FiO2 100 09/10/20 09/10/20 09/10/20 09/10/20 08:00 08:09 08:10 08:20 Temp 100.6 100.8 100.9 Pulse 118 114 110 Resp B/P (MAP) 145/82 (103) Pulse Ox 82 70 89 09/10/20 09/10/20 09/10/20 09/10/20 08:20 08:35 08:37 08:40 Temp 100.9 101.3 101.3 Pulse 110 101 101 Resp 22 27 28 B/P (MAP) 66/39 (48) Pulse Ox 89 88 88 O2 Delivery Mechanical Ventilator 09/10/20 09/10/20 09/10/20 09/10/20 08:46 08:50 08:53 08:55 Temp 101.3 101.5 101.5 101.5 Pulse 95 95 92 90 Resp 8 B/P (MAP) 66/40 (49) 62/38 (46) 66/37 (47) 71/40 (50) Pulse Ox 88 89 89 92 09/10/20 09/10/20 09/10/20 09/10/20 08:59 09:00 09:03 09:07 Temp 101.5 101.5 101.5 101.5 Pulse 87 84 87 92 Resp B/P (MAP) 86/48 (61) 96/55 (69) 108/57 (74) Pulse Ox 85 86 90 91 09/10/20 09/10/20 09/10/20 09/10/20 09:08 09:09 09:14 09:15 Pulse 104 104 104 104 Resp 32 32 32 32 Pulse Ox 90 90 90 90 O2 Delivery Mechanical Ventilator FiO2 100 09/10/20 09/10/20 09/10/20 09/10/20 09:15 09:30 09:38 09:45 Temp 101.7 101.7 101.7 101.8 Pulse 99 108 112 115 Resp 22 B/P (MAP) 136/74 (94) Pulse Ox 92 92 90 93 09/10/20 09/10/20 09/10/20 09/10/20 09:45 10:00 10:07 10:15 Temp 101.8 102.0 102.0 Pulse 115 116 113 107 Resp B/P (MAP) 126/58 (80) Pulse Ox 93 91 90 74 09/10/20 09/10/20 09/10/20 09/10/20 10:19 10:21 10:30 10:37 Pulse 113 115 118 114 Resp 8 22 B/P (MAP) 134/68 (90) 130/64 (86) 111/59 (76) Pulse Ox 68 74 77 78 09/10/20 09/10/20 09/10/20 09/10/20 10:45 10:45 11:08 11:10 Temp 101.7 Pulse 120 120 119 119 Resp B/P (MAP) 129/67 (87) Pulse Ox 75 75 79 80 09/10/20 09/10/20 09/10/20 09/10/20 11:15 11:30 11:37 11:45 Pulse 116 115 113 114 Resp B/P (MAP) 102/55 (71) Pulse Ox 81 81 81 80 09/10/20 09/10/20 09/10/20 09/10/20 11:50 12:00 12:07 12:15 Pulse 125 115 112 111 Resp B/P (MAP) 108/55 (72) Pulse Ox 80 81 81 81 09/10/20 09/10/20 09/10/20 09/10/20 12:18 12:18 12:30 12:33 Temp 101.4 Pulse 112 112 112 Resp B/P (MAP) 114/61 (78) 114/61 (78) Pulse Ox 81 81 81 O2 Delivery Mechanical Ventilator FiO2 100 09/10/20 09/10/20 09/10/20 09/10/20 12:33 12:37 12:48 13:03 Pulse 112 112 110 110 Resp B/P (MAP) 118/56 (76) Pulse Ox 81 81 81 80 09/10/20 09/10/20 09/10/20 09/10/20 13:07 13:18 13:33 13:37 Pulse 109 103 107 108 Resp B/P (MAP) 110/54 (72) 124/70 (88) 146/64 (91) Pulse Ox 81 81 83 83 09/10/20 09/10/20 09/10/20 09/10/20 13:48 14:03 14:07 14:11 Pulse 106 104 105 106 Resp B/P (MAP) 147/65 (92) 120/69 (86) Pulse Ox 82 83 84 88 09/10/20 09/10/20 09/10/20 09/10/20 14:18 14:33 14:37 14:48 Pulse 99 89 Resp 22 B/P (MAP) 112/57 (75) Pulse Ox 84 84 90 85 09/10/20 09/10/20 09/10/20 09/10/20 15:03 15:07 15:18 15:23 Pulse 89 87 85 85 Resp B/P (MAP) 106/56 (73) 98/48 (65) Pulse Ox 85 85 86 87 09/10/20 09/10/20 09/10/20 09/10/20 15:33 15:37 15:48 16:01 Pulse 83 82 82 105 Resp B/P (MAP) 107/62 (77) Pulse Ox 87 87 88 86 09/10/20 09/10/20 09/10/20 09/10/20 16:02 16:03 16:07 16:18 Temp 100.0 100.0 99.9 Pulse 105 81 82 82 Resp B/P (MAP) 109/61 (77) Pulse Ox 86 91 92 92 FiO2 100 09/10/20 09/10/20 09/10/20 09/10/20 16:21 16:22 16:22 16:27 Temp 99.9 99.9 Pulse 81 81 81 Resp B/P (MAP) 114/61 (78) Pulse Ox 92 92 81 O2 Delivery Mechanical Ventilator FiO2 100 09/10/20 09/10/20 09/10/20 09/10/20 16:37 16:52 17:07 17:22 Temp 99.7 99.7 99.7 99.5 Pulse 81 82 83 87 Resp B/P (MAP) 116/48 (70) 125/58 (80) Pulse Ox 92 92 93 92 09/10/20 09/10/20 09/10/20 09/10/20 17:37 17:52 18:07 18:22 Temp 99.5 99.5 99.3 99.3 Pulse 89 88 86 87 Resp B/P (MAP) 114/57 (76) 127/59 (81) Pulse Ox 92 91 91 91 09/10/20 09/10/20 09/10/20 09/10/20 18:37 19:00 19:07 19:15 Temp 99.3 99.3 99.3 99.3 Pulse 88 86 88 86 Resp B/P (MAP) 126/64 (84) 126/70 (88) Pulse Ox 89 91 91 92 09/10/20 09/10/20 09/10/20/30/20 19:30 19:37 19:45 20:00 Temp 99.3 99.3 99.3 Pulse 85 84 86 86 Resp 22 22 22 22 B/P (MAP) 122/66 (84) Pulse Ox 92 91 91 92 09/10/20 09/10/20 09/10/20 09/10/20 20:00 20:00 20:00 20:00 Temp 99.3 Pulse 86 84 84 86 Resp 22 22 22 22 Pulse Ox 92 91 91 92 O2 Delivery Mechanical Ventilator FiO2 100 100 09/10/20 09/10/20 09/10/20 09/10/20 20:00 20:00 20:07 20:15 Temp 99.3 99.3 Pulse 60 87 86 Resp 22 22 B/P (MAP) 120/67 (84) Pulse Ox 90 93 92 O2 Delivery Mechanical Ventilator FiO2 100 09/10/20 09/10/20 09/10/20 09/10/20 20:30 20:37 20:45 21:00 Temp 99.3 99.3 99.3 99.3 Pulse 87 86 104 105 Resp 22 25 22 B/P (MAP) 121/45 (70) Pulse Ox 92 92 91 93 09/10/20 09/10/20 09/10/20 09/10/20 21:07 21:15 21:30 21:45 Temp 99.1 99.1 99.1 99.1 Pulse 105 104 97 98 Resp 22 22 B/P (MAP) 126/62 (83) Pulse Ox 93 93 93 94 09/10/20 09/10/20 09/10/20 09/10/20 22:00 22:03 22:07 22:15 Temp 99.1 99.1 99.1 Pulse 91 95 90 88 Resp 22 22 22 B/P (MAP) 130/71 (90) Pulse Ox 94 91 94 93 FiO2 100 09/10/20 09/10/20 09/10/20 09/10/20 22:30 22:37 22:45 23:00 Temp 99.1 99.1 99.1 99.3 Pulse 89 85 87 87 Resp 22 22 B/P (MAP) 120/68 (85) Pulse Ox 94 95 95 95 09/10/20 09/10/20 09/10/2020 23:07 23:15 23:30 23:37 Temp 99.3 99.3 99.3 99.3 Pulse 84 85 85 85 Resp 22 22 22 B/P (MAP) 121/71 (88) 129/60 (83) Pulse Ox 95 95 95 95 09/10/20 09/11/20 09/11/20 09/11/20 23:45 00:00 00:00 00:00 Temp 99.3 99.3 Pulse 84 60 84 Resp 22 22 22 Pulse Ox 96 90 96 O2 Delivery Mechanical Ventilator FiO2 100 09/11/20 09/11/20 09/11/20 09/11/20 00:07 00:15 01:30 02:30 Temp 99.5 99.5 99.7 Pulse 82 87 79 81 Resp 22 B/P (MAP) 126/73 (90) Pulse Ox 95 95 97 96 FiO2 100 09/11/20 09/11/20 09/11/20 09/11/20 02:37 02:45 03:00 03:00 Temp 99.7 99.7 Pulse 78 84 88 Resp 22 B/P (MAP) 127/70 (89) Pulse Ox 97 95 92 92 FiO2 100 09/11/20 09/11/20 09/11/20 09/11/20 03:00 03:00 03:12 03:15 Temp 99.7 Pulse 88 116 113 Resp 22 58 23 B/P (MAP) 125/94 (104) Pulse Ox 92 94 09/11/20 09/11/20 09/11/20 09/11/20 03:30 03:37 03:45 04:00 Temp 99.7 99.7 99.7 Pulse 119 117 113 60 Resp 22 22 B/P (MAP) 134/59 (84) Pulse Ox 92 89 90 90 FiO2 100 09/11/20 09/11/20 09/11/20 09/11/20 04:00 04:07 04:15 04:30 Temp 99.7 99.7 99.7 99.7 Pulse 106 105 103 102 Resp 22 22 B/P (MAP) 117/60 (79) Pulse Ox 89 90 89 88 09/11/20 09/11/20 09/11/20 09/11/20 04:37 04:45 05:00 05:07 Temp 99.7 99.7 99.7 99.7 Pulse 100 98 88 88 Resp B/P (MAP) 123/57 (79) 110/58 (75) Pulse Ox 89 89 89 89 09/11/20 09/11/20 09/11/20 09/11/20 05:10 05:15 06:37 07:07 Temp 99.7 99.9 100.4 Pulse 83 85 102 114 Resp B/P (MAP) 135/78 (97) 142/67 (92) Pulse Ox 91 89 88 83 FiO2 100 09/11/20 09/11/20 09/11/20 09/11/20 07:37 08:07 08:37 08:38 Temp 100.9 101.5 101.7 Pulse 118 121 127 Resp B/P (MAP) 153/71 (98) 148/68 (94) 140/61 (87) Pulse Ox 78 79 77 O2 Delivery Mechanical Ventilator 09/11/20 09/11/20 09/11/20 09/11/20 08:50 09:07 09:35 09:37 Temp 102.0 101.8 Pulse 121 60 118 Resp B/P (MAP) 140/61 138/69 (92) 135/64 (87) Pulse Ox 74 90 76 FiO2 100 09/11/20 09/11/20 09/11/20 09/11/20 09:37 09:37 09:39 09:39 Pulse 117 117 117 117 Resp Pulse Ox 80 80 80 80 O2 Delivery Mechanical Ventilator FiO2 100 100 09/11/20 09/11/20 09/11/20 09/11/20 10:02 10:07 10:37 11:07 Temp 101.8 101.8 102.0 102.0 Pulse 127 129 114 125 Resp 13 B/P (MAP) 151/72 (98) 132/64 (86) 96/55 (69) 133/80 (97) Pulse Ox 55 71 75 81 09/11/20 09/11/20 09/11/20 09/11/20 11:37 12:07 12:15 12:30 Temp 102.0 101.5 Pulse 110 98 108 Resp 25 B/P (MAP) 86/44 (58) 71/39 (50) Pulse Ox 78 77 80 O2 Delivery Mechanical Ventilator FiO2 100 09/11/20 09/11/20 09/11/20 09/11/20 12:37 13:07 13:38 13:46 Temp 101.1 100.8 100.2 100.2 Pulse 80 73 67 44 Resp B/P (MAP) 75/40 (52) 73/39 (50) 99/35 (56) 65/27 (40) Pulse Ox 65 61 74 47 09/11/20 09/11/20 09/11/20 09/11/20 13:51 13:57 14:11 14:26 Temp 100.0 100.0 99.7 99.7 Pulse 61 60 58 76 Resp B/P (MAP) 80/38 (52) 87/31 (49) 77/41 (53) 70/32 (45) Pulse Ox 38 45 38 52 09/11/20 09/11/20 09/11/20 09/11/20 14:37 14:41 14:47 14:56 Temp 99.5 Pulse 58 61 81 67 Resp B/P (MAP) 67/42 (50) 82/44 (57) 73/43 (53) 66/43 (51) Pulse Ox 45 52 68 59 09/11/20 09/11/20 09/11/20 09/11/20 14:56 15:11 15:26 15:41 Temp 99.1 99.1 Pulse 60 71 84 92 Resp B/P (MAP) 61/26 (38) 91/58 (69) 121/68 (85) Pulse Ox 90 55 57 84 FiO2 100 09/11/20 09/11/20 09/11/20 09/11/20 15:56 16:12 16:15 16:15 Temp 99.3 99.3 Pulse 90 90 100 100 Resp B/P (MAP) 103/72 (82) 100/60 (73) Pulse Ox 84 82 77 77 FiO2 90 09/11/20 09/11/20 09/11/20 09/11/20 16:15 16:26 16:33 16:41 Temp 99.5 99.7 Pulse 100 90 90 Resp B/P (MAP) 105/64 (78) 124/60 (81) Pulse Ox 77 90 84 O2 Delivery Mechanical Ventilator 09/11/20 09/11/20 09/11/20 09/11/20 16:56 17:11 17:26 17:41 Temp 99.7 99.9 100.0 100.0 Pulse 91 94 94 101 Resp B/P (MAP) 102/66 (78) 120/69 (86) 120/63 (82) 126/67 (86) Pulse Ox 82 84 85 83 09/11/20 09/11/20 09/11/20 09/11/20 17:56 18:12 18:26 18:41 Temp 100.2 100.4 100.4 100.6 Pulse 95 99 56 97 Resp B/P (MAP) 118/75 (89) 102/46 (64) 64/33 (43) 101/66 (78) Pulse Ox 83 84 82 80 09/11/20 09/11/20 09/11/20 09/11/20 18:56 19:11 19:26 19:41 Temp 100.6 100.8 100.9 101.1 Pulse 95 99 102 101 Resp B/P (MAP) 137/80 (99) 154/94 (114) 143/78 (99) 141/70 (93) Pulse Ox 85 88 87 86 09/11/20 09/11/20 09/11/20 09/11/20 19:56 20:00 20:00 20:00 Temp 101.3 Pulse 100 101 104 101 Resp B/P (MAP) 141/76 (97) Pulse Ox 87 88 89 86 O2 Delivery Mechanical Ventilator FiO2 100 90 09/11/20 09/11/20 09/11/20 09/11/20 20:00 20:00 20:00 20:11 Temp 101.5 Pulse 110 101 100 Resp B/P (MAP) 138/81 (100) Pulse Ox 85 86 86 O2 Delivery Mechanical Ventilator FiO2 100 09/11/20 09/11/20 09/11/20 09/11/20 20:26 20:56 21:11 21:26 Temp 101.7 101.2 Pulse 101 100 107 107 Resp B/P (MAP) 143/83 (103) 133/79 (97) 137/74 (95) 134/72 (92) Pulse Ox 86 86 86 87 09/11/20 09/11/20 09/11/20 09/11/20 21:41 21:56 22:11 22:15 Temp 101.5 101.4 Pulse 106 107 106 104 Resp B/P (MAP) 138/73 (94) 123/69 (87) 120/73 (89) Pulse Ox 86 86 85 87 FiO2 90 09/11/20 09/11/20 09/11/20 09/11/20 22:26 22:41 22:56 23:11 Temp 101.0 100.9 Pulse 104 102 102 100 Resp B/P (MAP) 121/63 (82) 111/66 (81) 119/63 (81) 112/65 (81) Pulse Ox 87 87 87 87 09/11/20 09/11/20 09/12/20 09/12/20 23:41 23:56 00:00 00:00 Temp 100.6 Pulse 99 98 110 Resp B/P (MAP) 114/67 (83) 118/69 (85) Pulse Ox 86 86 85 O2 Delivery Mechanical Ventilator FiO2 100 09/12/20 09/12/20 09/12/20 09/12/20 00:11 00:26 00:56 01:00 Temp 100.5 Pulse 98 98 98 108 Resp B/P (MAP) 125/69 (87) 128/78 (95) 122/71 (88) Pulse Ox 88 87 88 87 FiO2 90 09/12/20 09/12/20 09/12/20 09/12/20 01:11 01:26 01:41 01:56 Temp 100.4 Pulse 99 98 97 98 Resp B/P (MAP) 114/67 (83) 121/74 (90) 124/73 (90) 97/57 (70) Pulse Ox 85 87 88 82 09/12/20 09/12/20 09/12/20 09/12/20 02:11 02:15 02:15 02:15 Temp 100.4 Pulse 97 95 95 95 Resp B/P (MAP) 92/39 (56) Pulse Ox 80 89 85 85 FiO2 90 09/12/20 09/12/20 09/12/20 12/2/20 02:26 02:41 02:56 03:11 Temp 100.3 Pulse 95 99 101 101 Resp B/P (MAP) 100/60 (73) 119/65 (83) 116/64 (81) 116/69 (85) Pulse Ox 83 89 87 88 09/12/20 09/12/20 09/12/20 09/12/20 03:41 03:56 04:00 04:00 Pulse 100 99 94 Resp B/P (MAP) 132/58 (82) 114/50 (71) Pulse Ox 85 82 86 O2 Delivery Mechanical Ventilator FiO2 100 09/12/20 09/12/20 09/12/20 09/12/20 04:02 04:11 04:26 04:40 Temp 100.1 Pulse 97 96 96 Resp B/P (MAP) 114/50 119/70 (86) 113/70 (84) Pulse Ox 83 83 85 FiO2 90 09/12/20 09/12/20 09/12/20 09/12/20 04:41 04:56 05:11 05:26 Temp 99.9 Pulse 95 96 96 94 Resp B/P (MAP) 121/58 (79) 121/59 (79) 120/70 (87) 113/68 (83) Pulse Ox 84 83 83 83 09/12/20 09/12/20 09/12/20 09/12/20 05:41 05:56 06:11 06:26 Temp 99.8 Pulse 95 93 92 93 Resp B/P (MAP) 114/66 (82) 115/67 (83) 112/66 (81) 113/68 (83) Pulse Ox 83 83 84 84 09/12/20 09/12/20 09/12/20 09/12/20 06:41 09:40 09:40 09:40 Pulse 91 88 88 88 Resp B/P (MAP) 119/60 (79) Pulse Ox 85 86 86 86 O2 Delivery Mechanical Ventilator FiO2 100 100 09/12/20 09/12/20 09:40 11:00 Pulse 88 Resp 22 B/P (MAP) 112/68 Pulse Ox 86 Intake and Output 09/12/20 06:00 Intake Total 6195.7 ml Output Total 1400 ml Balance 4795.7 ml LABS LAB RESULTS Laboratory Tests Test 08/31/20 01:00 08/31/20 05:54 08/31/20 06:06 08/31/20 11:40 White Blood Count 25.4 10^3/uL 30.6 10^3/uL Red Blood Count 5.49 10^6/uL 5.65 10^6/uL Hemoglobin 17.8 g/dL 17.9 g/dL Hematocrit 48.6 % 50.3 % Mean Corpuscular Volume 88.5 fL 89.0 fL Mean Corpuscular Hemoglobin 32.4 pg 31.7 pg Mean Corpuscular Hemoglobin Concent 36.6 g/dL 35.6 g/dL Red Cell Distribution Width 12.4 % 12.7 % Platelet Count 232 10^3/uL 234 10^3/uL Mean Platelet Volume 9.2 fL 9.1 fL Neutrophils (%) (Auto) 88.4 % Lymphocytes (%) (Auto) 2.8 % Monocytes (%) (Auto) 6.8 % Neutrophils # (Auto) 22.4 10^3/uL Lymphocytes # (Auto) 0.72 10^3/uL1 Monocytes # (Auto) 1.7 10^3/uL Absolute Immature Granulocyte (auto 0.50 10^3 u/L Absolute Eosinophils (auto) 0.0 10^3/uL Immature Granulocytes % 2.00 % Eosinophils % 0.0 % Basophils % 0.0 % Basophils # 0.0 10^3/uL D-Dimer 0.33 mg/L Sodium Level 139 mmol/L Potassium Level 4.0 mmol/L Chloride Level 102.0 mmol/L Carbon Dioxide Level 25.6 mmol/L Anion Gap 15.4 Blood Urea Nitrogen 20 mg/dL Creatinine 1.07 mg/dL Estimated GFR () 86.8 Est GFR (CKD-EPI)(Non-Afr [place]) 71.8 BUN/Creatinine Ratio 18.0 Glucose Level 157 mg/dL Calcium Level 8.4 mg/dL Total Bilirubin 0.7 mg/dL Aspartate Amino Transf (AST/SGOT) 35 U/L Alanine Aminotransferase (ALT/SGPT) 77 U/L Alkaline Phosphatase 98 U/L C-Reactive Protein 12.72 mg/dL Total Protein 7.0 g/dL Albumin 2.7 g/dL Globulin 4.3 Albumin/Globulin Ratio 0.627 Procalcitonin 0.45 ng/mL Differential Total Cells Counted 100 #CELLS Segmented Neutrophils 89 % Lymphocytes 3 % Monocytes 8 % Differential Comment NORMAL Platelet Estimate ADEQUATE Platelet Morphology NORMAL Blood Gas Sample Site LR Blood Gas pH 7.430 Blood Gas PCO2 31.9 mmHg Blood Gas PO2 64.2 mmHg Blood Gas HCO3 20.7 mmol/L Blood Gas Base Excess -2.2 mmol/L Vince Test POSITIVE Arterial Blood Oxygen Saturation 92.7 % Deoxyhemoglobin 7.2 % Carboxyhemoglobin 0.3 % Methemoglobin 0.6 % Total Hemoglobin 19.8 % Total Oxygen Concentration 25.5 % Oxygen Delivery Method (LAB) CPAP 12 FiO2 100 % Total Carbon Dioxide 21.7 mmol/L Test 09/01/20 04:40 09/01/20 08:30 09/01/20 08:40 09/01/20 08:50 White Blood Count 20.4 10^3/uL Red Blood Count 5.40 10^6/uL Hemoglobin 17.3 g/dL Hematocrit 48.5 % Mean Corpuscular Volume 89.8 fL Mean Corpuscular Hemoglobin 32.0 pg Mean Corpuscular Hemoglobin Concent 35.7 g/dL Red Cell Distribution Width 12.7 % Platelet Count 216 10^3/uL Mean Platelet Volume 9.5 fL Sodium Level 141 mmol/L Potassium Level 4.3 mmol/L Chloride Level 105.0 mmol/L Carbon Dioxide Level 24.8 mmol/L Anion Gap 15.5 Blood Urea Nitrogen 30 mg/dL Creatinine 1.15 mg/dL Estimated GFR () 79.9 Est GFR (CKD-EPI)(Non-Afr [place]) 66.0 BUN/Creatinine Ratio 26.0 Glucose Level 119 mg/dL Calcium Level 8.5 mg/dL Phosphorus Level 4.1 mg/dL Magnesium Level 3.0 mg/dL Total Bilirubin 1.1 mg/dL Aspartate Amino Transf (AST/SGOT) 56 U/L Alanine Aminotransferase (ALT/SGPT) 56 U/L Alkaline Phosphatase 84 U/L Total Protein 7.0 g/dL Albumin 2.4 g/dL Globulin 4.6 Albumin/Globulin Ratio 0.521 Blood Gas Sample Site RT RADIAL ARTERY Blood Gas pH 7.391 Blood Gas PCO2 39.3 mmHg Blood Gas PO2 58.3 mmHg Blood Gas HCO3 23.3 mmol/L Blood Gas Base Excess -1.3 mmol/L Vince Test N/A Arterial Blood Oxygen Saturation 90.2 % Deoxyhemoglobin 9.8 % Carboxyhemoglobin 0.3 % Methemoglobin 0.1 % Total Hemoglobin 18.2 % Total Oxygen Concentration 22.9 % Blood Gas Temperature 37.0 Oxygen Delivery Method (LAB) bipap Blood Gas Vent Mode avaps FiO2 100 % Total Carbon Dioxide 24.5 mmol/L Urine Collection Type CATH Urine Color YELLOW Urine Appearance CLEAR Urine Bilirubin NEGATIVE MG/DL Urine Ketones NEGATIVE Urine Specific Declo 1.030 Urine pH 5.5 Urine Protein 100 mg/dL Urine Urobilinogen NEGATIVE Urine Nitrate NEGATIVE Urine Leukocyte Esterase NEGATIVE Urine Blood MODERATE Urine RBC 0-2 RBC/HPF Urine WBC 2-5 WBC/HPF Urine Squamous Epithelial Cells NONE SEEN #/HPF Urine Bacteria RARE Urine Glucose NORMAL Prothrombin Time 13.4 SEC Prothrombin Time INR (Non-Therap) 1.3 Fibrinogen 247 mg/dL Test 09/01/20 12:31 09/01/20 18:10 09/02/20 04:15 09/02/20 05:35 Blood Gas Sample Site RT RADIAL ARTERY RT RADIAL ARTERY Blood Gas pH 7.391 7.395 Blood Gas PCO2 44.9 mmHg 41.9 mmHg Blood Gas PO2 71.7 mmHg 154.5 mmHg Blood Gas HCO3 26.6 mmol/L 25.1 mmol/L Blood Gas Base Excess 1.2 mmol/L 0.1 mmol/L Vince Test POSITIVE POSITIVE Arterial Blood Oxygen Saturation 93.2 % 98.8 % Deoxyhemoglobin 6.7 % 1.2 % Carboxyhemoglobin 0.8 % 0.3 % Methemoglobin 0.6 % 0.3 % Total Hemoglobin 16.9 % 16.8 % Total Oxygen Concentration 21.8 % 23.4 % Blood Gas Temperature 37 37 Oxygen Delivery Method (LAB) VENT VETN Blood Gas Vent Mode AC VC A/C Blood Gas Vent Rate 20 22 FiO2 100 % 100 % Blood Gas Tidal Volume 450 ML 450 ML Blood Gas PEEP 16 CMH2O 16 CMH2O Total Carbon Dioxide 28.0 mmol/L 26.4 mmol/L White Blood Count 14.3 10^3/uL Red Blood Count 5.09 10^6/uL Hemoglobin 16.3 g/dL Hematocrit 46.3 % Mean Corpuscular Volume 91.0 fL Mean Corpuscular Hemoglobin 32.0 pg Mean Corpuscular Hemoglobin Concent 35.2 g/dL Red Cell Distribution Width 13.1 % Platelet Count 202 10^3/uL Mean Platelet Volume 9.8 fL Neutrophils (%) (Auto) 87.5 % Lymphocytes (%) (Auto) 6.4 % Monocytes (%) (Auto) 4.0 % Neutrophils # (Auto) 12.5 10^3/uL Lymphocytes # (Auto) 0.92 10^3/uL1 Monocytes # (Auto) 0.6 10^3/uL Absolute Immature Granulocyte (auto 0.29 10^3 u/L Absolute Eosinophils (auto) 0.0 10^3/uL Immature Granulocytes % 2.00 % Eosinophils % 0.0 % Basophils % 0.1 % Basophils # 0.0 10^3/uL D-Dimer 0.58 mg/L Sodium Level 141 mmol/L Potassium Level 4.1 mmol/L Chloride Level 106.0 mmol/L Carbon Dioxide Level 26.4 mmol/L Anion Gap 12.7 Blood Urea Nitrogen 31 mg/dL Creatinine 0.96 mg/dL Estimated GFR () 98.4 Est GFR (CKD-EPI)(Non-Afr [place]) 81.3 BUN/Creatinine Ratio 32.0 Glucose Level 222 mg/dL Calcium Level 8.4 mg/dL Phosphorus Level 3.0 mg/dL Magnesium Level 3.1 mg/dL Ferritin 3104 ng/mL Total Bilirubin 0.7 mg/dL Aspartate Amino Transf (AST/SGOT) 39 U/L Alanine Aminotransferase (ALT/SGPT) 52 U/L Alkaline Phosphatase 73 U/L Lactate Dehydrogenase 587 U/L Total Creatine Kinase 323 U/L C-Reactive Protein 18.05 mg/dL Total Protein 6.4 g/dL Albumin 2.3 g/dL Globulin 4.1 Albumin/Globulin Ratio 0.560 Procalcitonin 0.78 ng/mL Segmented Neutrophils 93 % Lymphocytes 2 % Monocytes 5 % Platelet Estimate ADEQUATE Platelet Morphology NORMAL Test 09/02/20 07:18 09/03/20 05:01 09/03/20 06:09 09/03/20 09:06 Blood Gas Sample Site RT RADIAL ARTERY RT RADIAL ARTERY Blood Gas pH 7.409 7.428 Blood Gas PCO2 40.2 mmHg 42.8 mmHg Blood Gas PO2 103.5 mmHg 81.1 mmHg Blood Gas HCO3 24.9 mmol/L 27.6 mmol/L Blood Gas Base Excess 0.3 mmol/L 2.9 mmol/L Vince Test POSITIVE POSITIVE Arterial Blood Oxygen Saturation 98.0 % 96.0 % Deoxyhemoglobin 2.0 % 4.0 % Carboxyhemoglobin 0.5 % 0.1 % Methemoglobin 0.4 % 0.2 % Total Hemoglobin 16.1 % 16.2 % Total Oxygen Concentration 22.1 % 21.8 % Blood Gas Temperature 37 Oxygen Delivery Method (LAB) VENT MV Blood Gas Vent Mode AC VC AC Blood Gas Vent Rate 22 22 FiO2 100 % 90 % Blood Gas Tidal Volume 450 ML 450 ML Blood Gas PEEP 16 CMH2O 16.0 CMH2O Total Carbon Dioxide 26.1 mmol/L 29.0 mmol/L White Blood Count 17.9 10^3/uL Red Blood Count 4.79 10^6/uL Hemoglobin 15.2 g/dL Hematocrit 44.0 % Mean Corpuscular Volume 91.9 fL Mean Corpuscular Hemoglobin 31.7 pg Mean Corpuscular Hemoglobin Concent 34.5 g/dL Red Cell Distribution Width 13.0 % Platelet Count 198 10^3/uL Mean Platelet Volume 9.8 fL Neutrophils (%) (Auto) 90.7 % Lymphocytes (%) (Auto) 3.3 % Monocytes (%) (Auto) 5.0 % Neutrophils # (Auto) 16.3 10^3/uL Lymphocytes # (Auto) 0.60 10^3/uL1 Monocytes # (Auto) 0.9 10^3/uL Absolute Immature Granulocyte (auto 0.16 10^3 u/L Absolute Eosinophils (auto) 0.0 10^3/uL Immature Granulocytes % 0.90 % Eosinophils % 0.0 % Basophils % 0.1 % Basophils # 0.0 10^3/uL D-Dimer 0.87 mg/L Sodium Level 143 mmol/L Potassium Level 4.1 mmol/L Chloride Level 108.0 mmol/L Carbon Dioxide Level 26.3 mmol/L Anion Gap 12.8 Blood Urea Nitrogen 33 mg/dL Creatinine 0.82 mg/dL Estimated GFR () 118.0 Est GFR (CKD-EPI)(Non-Afr [place]) 97.5 BUN/Creatinine Ratio 40.0 Glucose Level 175 mg/dL Calcium Level 8.1 mg/dL Ferritin 2715 ng/mL Total Bilirubin 0.5 mg/dL Aspartate Amino Transf (AST/SGOT) 25 U/L Alanine Aminotransferase (ALT/SGPT) 39 U/L Alkaline Phosphatase 61 U/L Lactate Dehydrogenase 473 U/L Total Creatine Kinase 138 U/L C-Reactive Protein 8.70 mg/dL Total Protein 5.9 g/dL Albumin 2.1 g/dL Globulin 3.8 Albumin/Globulin Ratio 0.552 Procalcitonin 0.42 ng/mL Segmented Neutrophils 91 % Lymphocytes 3 % Monocytes 6 % Platelet Estimate ADEQUATE Platelet Morphology NORMAL Test 09/03/20 11:43 09/03/20 13:57 09/03/20 17:31 09/04/20 04:20 Bedside Glucose 113 Blood Gas Sample Site ART LINE ART LINE Blood Gas pH 7.357 7.433 Blood Gas PCO2 46.5 mmHg 41.3 mmHg Blood Gas PO2 64.6 mmHg 73.8 mmHg Blood Gas HCO3 25.5 mmol/L 27.0 mmol/L Blood Gas Base Excess -0.5 mmol/L 2.5 mmol/L Vince Test N/A N/A Arterial Blood Oxygen Saturation 91.1 % 95.1 % Deoxyhemoglobin 8.8 % 4.9 % Carboxyhemoglobin 0.9 % 0.1 % Methemoglobin 0.5 % 0.3 % Total Hemoglobin 16.1 % 16.1 % Total Oxygen Concentration 20.3 % 21.4 % Oxygen Delivery Method (LAB) MV MV Blood Gas Vent Mode ACVC AC Blood Gas Vent Rate 22 22 FiO2 70 % 70 % Blood Gas Tidal Volume 450 ML 450 ML Blood Gas PEEP 12.0 CMH2O 12.0 CMH2O Total Carbon Dioxide 26.9 mmol/L 28.3 mmol/L White Blood Count 15.3 10^3/uL Red Blood Count 4.75 10^6/uL Hemoglobin 15.1 g/dL Hematocrit 44.2 % Mean Corpuscular Volume 93.1 fL Mean Corpuscular Hemoglobin 31.8 pg Mean Corpuscular Hemoglobin Concent 34.2 g/dL Red Cell Distribution Width 12.8 % Platelet Count 183 10^3/uL Mean Platelet Volume 9.5 fL Neutrophils (%) (Auto) 89.5 % Lymphocytes (%) (Auto) 5.2 % Monocytes (%) (Auto) 4.6 % Neutrophils # (Auto) 13.7 10^3/uL Lymphocytes # (Auto) 0.80 10^3/uL1 Monocytes # (Auto) 0.7 10^3/uL Absolute Immature Granulocyte (auto 0.11 10^3 u/L Absolute Eosinophils (auto) 0.0 10^3/uL Immature Granulocytes % 0.70 % Eosinophils % 0.0 % Basophils % 0.0 % Basophils # 0.0 10^3/uL D-Dimer 1.02 mg/L Sodium Level 142 mmol/L Potassium Level 4.1 mmol/L Chloride Level 107.0 mmol/L Carbon Dioxide Level 26.9 mmol/L Anion Gap 12.2 Blood Urea Nitrogen 21 mg/dL Creatinine 0.69 mg/dL Estimated GFR () 144.0 Est GFR (CKD-EPI)(Non-Afr [place]) 119.0 BUN/Creatinine Ratio 30.0 Glucose Level 143 mg/dL Calcium Level 7.6 mg/dL Ferritin 2265 ng/mL Total Bilirubin 0.5 mg/dL Aspartate Amino Transf (AST/SGOT) 30 U/L Alanine Aminotransferase (ALT/SGPT) 38 U/L Alkaline Phosphatase 65 U/L Lactate Dehydrogenase 487 U/L Total Creatine Kinase 135 U/L C-Reactive Protein 5.58 mg/dL Total Protein 5.5 g/dL Albumin 2.0 g/dL Globulin 3.5 Albumin/Globulin Ratio 0.571 Triglycerides Level 225 mg/dL Procalcitonin 0.10 ng/mL Test 09/04/20 08:14 09/04/20 11:47 09/04/20 18:01 09/05/20 04:11 Blood Gas Sample Site ART LINE Blood Gas pH 7.453 Blood Gas PCO2 36.2 mmHg Blood Gas PO2 43.9 mmHg Blood Gas HCO3 24.8 mmol/L Blood Gas Base Excess 1.2 mmol/L Vince Test N/A Arterial Blood Oxygen Saturation 82.4 % Deoxyhemoglobin 17.5 % Carboxyhemoglobin 0.5 % Methemoglobin 0.3 % Total Hemoglobin 16.1 % Total Oxygen Concentration 18.4 % Oxygen Delivery Method (LAB) MV Blood Gas Vent Mode ACVC Blood Gas Vent Rate 22 FiO2 70 % Blood Gas Tidal Volume 450 ML Blood Gas PEEP 12.0 CMH2O Total Carbon Dioxide 25.9 mmol/L Bedside Glucose 172 144 White Blood Count 19.1 10^3/uL Red Blood Count 4.79 10^6/uL Hemoglobin 15.2 g/dL Hematocrit 44.5 % Mean Corpuscular Volume 92.9 fL Mean Corpuscular Hemoglobin 31.7 pg Mean Corpuscular Hemoglobin Concent 34.2 g/dL Red Cell Distribution Width 12.6 % Platelet Count 180 10^3/uL Mean Platelet Volume 9.7 fL Neutrophils (%) (Auto) 92.7 % Lymphocytes (%) (Auto) 3.5 % Monocytes (%) (Auto) 2.8 % Neutrophils # (Auto) 17.7 10^3/uL Lymphocytes # (Auto) 0.66 10^3/uL1 Monocytes # (Auto) 0.5 10^3/uL Absolute Immature Granulocyte (auto 0.18 10^3 u/L Absolute Eosinophils (auto) 0.0 10^3/uL Immature Granulocytes % 0.90 % Eosinophils % 0.0 % Basophils % 0.1 % Basophils # 0.0 10^3/uL Sodium Level 139 mmol/L Potassium Level 3.9 mmol/L Chloride Level 103.0 mmol/L Carbon Dioxide Level 29.9 mmol/L Anion Gap 10.0 Blood Urea Nitrogen 17 mg/dL Creatinine 0.59 mg/dL Estimated GFR () 172.6 Est GFR (CKD-EPI)(Non-Afr [place]) 142.6 BUN/Creatinine Ratio 28.0 Glucose Level 155 mg/dL Calcium Level 7.7 mg/dL Phosphorus Level 3.2 mg/dL Magnesium Level 2.2 mg/dL Total Bilirubin 0.6 mg/dL Aspartate Amino Transf (AST/SGOT) 27 U/L Alanine Aminotransferase (ALT/SGPT) 38 U/L Alkaline Phosphatase 71 U/L Total Protein 5.6 g/dL Albumin 1.9 g/dL Globulin 3.7 Albumin/Globulin Ratio 0.513 Test 09/05/20 08:20 09/05/20 11:33 09/05/20 17:36 09/06/20 04:10 Blood Gas Sample Site RR Blood Gas pH 7.390 Blood Gas PCO2 50.4 mmHg Blood Gas PO2 59.2 mmHg Blood Gas HCO3 29.8 mmol/L Blood Gas Base Excess 3.6 mmol/L Vince Test POSITIVE Arterial Blood Oxygen Saturation 89.3 % Deoxyhemoglobin 10.5 % Carboxyhemoglobin 1.1 % Methemoglobin 0.4 % Total Hemoglobin 16.8 % Total Oxygen Concentration 20.7 % Oxygen Delivery Method (LAB) VENT Blood Gas Vent Mode AC Blood Gas Vent Rate 22 FiO2 90 % Blood Gas Tidal Volume 450 ML Blood Gas PEEP 16 CMH2O Total Carbon Dioxide 31.4 mmol/L Bedside Glucose 132 161 White Blood Count 13.9 10^3/uL Red Blood Count 4.61 10^6/uL Hemoglobin 14.7 g/dL Hematocrit 42.9 % Mean Corpuscular Volume 93.1 fL Mean Corpuscular Hemoglobin 31.9 pg Mean Corpuscular Hemoglobin Concent 34.3 g/dL Red Cell Distribution Width 12.4 % Platelet Count 159 10^3/uL Mean Platelet Volume 9.8 fL Neutrophils (%) (Auto) 89.3 % Lymphocytes (%) (Auto) 6.1 % Monocytes (%) (Auto) 2.7 % Neutrophils # (Auto) 12.4 10^3/uL Lymphocytes # (Auto) 0.84 10^3/uL1 Monocytes # (Auto) 0.4 10^3/uL Absolute Immature Granulocyte (auto 0.20 10^3 u/L Absolute Eosinophils (auto) 0.1 10^3/uL Immature Granulocytes % 1.40 % Eosinophils % 0.4 % Basophils % 0.1 % Basophils # 0.0 10^3/uL D-Dimer 3.65 mg/L Sodium Level 140 mmol/L Potassium Level 4.3 mmol/L Chloride Level 106.0 mmol/L Carbon Dioxide Level 30.5 mmol/L Anion Gap 7.8 Blood Urea Nitrogen 17 mg/dL Creatinine 0.62 mg/dL Estimated GFR () 163.0 Est GFR (CKD-EPI)(Non-Afr [place]) 134.7 BUN/Creatinine Ratio 27.0 Glucose Level 128 mg/dL Calcium Level 7.9 mg/dL Phosphorus Level 2.8 mg/dL Magnesium Level 2.2 mg/dL Ferritin 1712 ng/mL Total Bilirubin 0.4 mg/dL Aspartate Amino Transf (AST/SGOT) 25 U/L Alanine Aminotransferase (ALT/SGPT) 37 U/L Alkaline Phosphatase 65 U/L Lactate Dehydrogenase 407 U/L Total Creatine Kinase 40 U/L C-Reactive Protein 11.49 mg/dL Total Protein 5.4 g/dL Albumin 1.7 g/dL Globulin 3.7 Albumin/Globulin Ratio 0.459 Procalcitonin 0.05 ng/mL Test 09/06/20 07:55 09/06/20 20:45 09/07/20 00:00 09/07/20 03:57 Blood Gas Sample Site PILY A LINE Blood Gas pH 7.404 7.413 Blood Gas PCO2 46.2 mmHg 43.7 mmHg Blood Gas PO2 42.9 mmHg 58.7 mmHg Blood Gas HCO3 28.2 mmol/L 27.3 mmol/L Blood Gas Base Excess 2.8 mmol/L 2.2 mmol/L Vince Test N/A N/A Arterial Blood Oxygen Saturation 78.0 % 90.9 % Deoxyhemoglobin 21.7 % 9.0 % Carboxyhemoglobin 0.9 % 0.9 % Methemoglobin 0.4 % 0.4 % Total Hemoglobin 16.1 % 16.8 % Total Oxygen Concentration 17.4 % 21.1 % Blood Gas Temperature 37.0 37 Oxygen Delivery Method (LAB) VENT VENT Blood Gas Vent Mode AC AC Blood Gas Vent Rate 20 22 FiO2 100 % 100 % Blood Gas Tidal Volume 500 ML 450 ML Blood Gas PEEP 12 CMH2O 12 CMH2O Total Carbon Dioxide 29.7 mmol/L 28.6 mmol/L Vancomycin Level Trough 3.2 ug/mL White Blood Count 16.9 10^3/uL Red Blood Count 4.74 10^6/uL Hemoglobin 15.0 g/dL Hematocrit 43.7 % Mean Corpuscular Volume 92.2 fL Mean Corpuscular Hemoglobin 31.6 pg Mean Corpuscular Hemoglobin Concent 34.3 g/dL Red Cell Distribution Width 12.3 % Platelet Count 188 10^3/uL Mean Platelet Volume 10.3 fL Neutrophils (%) (Auto) 92.8 % Lymphocytes (%) (Auto) 3.0 % Monocytes (%) (Auto) 2.3 % Neutrophils # (Auto) 15.7 10^3/uL Lymphocytes # (Auto) 0.51 10^3/uL1 Monocytes # (Auto) 0.4 10^3/uL Absolute Immature Granulocyte (auto 0.30 10^3 u/L Absolute Eosinophils (auto) 0.0 10^3/uL Immature Granulocytes % 1.80 % Eosinophils % 0.0 % Basophils % 0.1 % Basophils # 0.0 10^3/uL Sodium Level 141 mmol/L Potassium Level 4.2 mmol/L Chloride Level 106.0 mmol/L Carbon Dioxide Level 29.4 mmol/L Anion Gap 9.8 Blood Urea Nitrogen 20 mg/dL Creatinine 0.60 mg/dL Estimated GFR () 169.3 Est GFR (CKD-EPI)(Non-Afr [place]) 139.9 BUN/Creatinine Ratio 33.0 Glucose Level 119 mg/dL Calcium Level 8.2 mg/dL Total Bilirubin 0.6 mg/dL Aspartate Amino Transf (AST/SGOT) 32 U/L Alanine Aminotransferase (ALT/SGPT) 36 U/L Alkaline Phosphatase 69 U/L Total Protein 5.7 g/dL Albumin 1.6 g/dL Globulin 4.1 Albumin/Globulin Ratio 0.390 Test 09/08/20 05:02 09/08/20 07:50 09/08/20 08:50 09/08/20 11:57 White Blood Count 12.4 10^3/uL Red Blood Count 4.34 10^6/uL Hemoglobin 13.9 g/dL Hematocrit 41.2 % Mean Corpuscular Volume 94.9 fL Mean Corpuscular Hemoglobin 32.0 pg Mean Corpuscular Hemoglobin Concent 33.7 g/dL Red Cell Distribution Width 12.6 % Platelet Count 146 10^3/uL Mean Platelet Volume 10.0 fL Sodium Level 154 mmol/L 138 mmol/L Potassium Level 4.7 mmol/L 4.4 mmol/L Chloride Level 118.0 mmol/L 107.0 mmol/L Carbon Dioxide Level 27.2 mmol/L 26.5 mmol/L Anion Gap 13.5 8.9 Blood Urea Nitrogen 22 mg/dL 24 mg/dL Creatinine 0.53 mg/dL 0.56 mg/dL Estimated GFR () 195.3 183.3 Est GFR (CKD-EPI)(Non-Afr [place]) 161.4 151.5 BUN/Creatinine Ratio 41.0 42.0 Glucose Level 105 mg/dL 113 mg/dL Calcium Level 8.0 mg/dL 8.2 mg/dL Total Bilirubin 0.6 mg/dL Aspartate Amino Transf (AST/SGOT) 35 U/L Alanine Aminotransferase (ALT/SGPT) 25 U/L Alkaline Phosphatase 57 U/L C-Reactive Protein 12.77 mg/dL Total Protein 5.4 g/dL Albumin 1.5 g/dL Globulin 3.9 Albumin/Globulin Ratio 0.384 Blood Gas Sample Site RT BRACIAL ARTERY Blood Gas pH 7.460 Blood Gas PCO2 42.4 mmHg Blood Gas PO2 70.4 mmHg Blood Gas HCO3 29.5 mmol/L Blood Gas Base Excess 5.1 mmol/L Vince Test N/A Arterial Blood Oxygen Saturation 94.6 % Deoxyhemoglobin 5.3 % Carboxyhemoglobin 0.8 % Methemoglobin 0.4 % Total Hemoglobin 14.8 % Total Oxygen Concentration 19.5 % Blood Gas Temperature 37 Oxygen Delivery Method (LAB) VENT Blood Gas Vent Mode AC Blood Gas Vent Rate 22 FiO2 100 % Blood Gas Tidal Volume 450 ML Blood Gas PEEP 12.0 CMH2O Total Carbon Dioxide 30.8 mmol/L Vancomycin Level Trough 19.2 ug/mL Test 09/09/20 05:44 09/09/20 08:00 09/09/20 09:35 09/10/20 04:18 White Blood Count 18.0 10^3/uL 17.5 10^3/uL Red Blood Count 4.63 10^6/uL 4.34 10^6/uL Hemoglobin 14.8 g/dL 13.8 g/dL Hematocrit 42.6 % 39.8 % Mean Corpuscular Volume 92.0 fL 91.7 fL Mean Corpuscular Hemoglobin 32.0 pg 31.8 pg Mean Corpuscular Hemoglobin Concent 34.7 g/dL 34.7 g/dL Red Cell Distribution Width 12.5 % 12.2 % Platelet Count 154 10^3/uL 129 10^3/uL Mean Platelet Volume 10.1 fL 9.4 fL Sodium Level 139 mmol/L 140 mmol/L Potassium Level 3.5 mmol/L 3.9 mmol/L Chloride Level 103.0 mmol/L 104.0 mmol/L Carbon Dioxide Level 28.4 mmol/L 30.8 mmol/L Anion Gap 11.1 9.1 Blood Urea Nitrogen 21 mg/dL 19 mg/dL Creatinine 0.52 mg/dL 0.55 mg/dL Estimated GFR () 199.6 187.1 Est GFR (CKD-EPI)(Non-Afr [place]) 165.0 154.7 BUN/Creatinine Ratio 40.0 34.0 Glucose Level 117 mg/dL 138 mg/dL Calcium Level 8.2 mg/dL 8.0 mg/dL Total Bilirubin 0.9 mg/dL 0.7 mg/dL Aspartate Amino Transf (AST/SGOT) 47 U/L 55 U/L Alanine Aminotransferase (ALT/SGPT) 51 U/L 63 U/L Alkaline Phosphatase 70 U/L 81 U/L Total Protein 6.0 g/dL 5.5 g/dL Albumin 1.7 g/dL 1.5 g/dL Globulin 4.3 4.0 Albumin/Globulin Ratio 0.395 0.375 Blood Gas Sample Site RT BRACIAL ARTERY Blood Gas pH 7.371 Blood Gas PCO2 34.6 mmHg Blood Gas PO2 64.4 mmHg Blood Gas HCO3 19.6 mmol/L Blood Gas Base Excess -4.8 mmol/L Vince Test POSITIVE Arterial Blood Oxygen Saturation 91.3 % Deoxyhemoglobin 8.6 % Carboxyhemoglobin 0.7 % Methemoglobin 0.3 % Total Hemoglobin 13.8 % Total Oxygen Concentration 17.5 % Blood Gas Temperature 37 Oxygen Delivery Method (LAB) VENT Blood Gas Vent Mode AC Blood Gas Vent Rate 22 FiO2 100 % Blood Gas Tidal Volume 500 ML Blood Gas PEEP 14 CMH2O Total Carbon Dioxide 20.7 mmol/L Lactic Acid Level 1.1 mmol/L Influenza Type A Antigen NEGATIVE Influenza B Immunofluorescence NEGATIVE Activated Partial Thromboplast Time 27.2 SEC Fibrinogen 621 mg/dL D-Dimer 5.93 mg/L Triglycerides Level 207 mg/dL Vancomycin Level Trough 10.8 ug/mL Test 09/10/20 04:20 09/10/20 07:41 09/10/20 15:55 09/11/20 04:26 Blood Gas Sample Site LEFT RADIAL ARTERY Blood Gas pH 7.477 Blood Gas PCO2 40.6 mmHg Blood Gas PO2 52.8 mmHg Blood Gas HCO3 29.4 mmol/L Blood Gas Base Excess 5.4 mmol/L Vince Test POSITIVE Arterial Blood Oxygen Saturation 87.5 % Deoxyhemoglobin 12.2 % Carboxyhemoglobin 2.4 % Methemoglobin 0.3 % Total Hemoglobin 15.1 % Total Oxygen Concentration 18.0 % Blood Gas Temperature 37.0 Oxygen Delivery Method (LAB) VENT Blood Gas Vent Mode AC Blood Gas Vent Rate 22 FiO2 100 % Blood Gas Tidal Volume 500 ML Blood Gas PEEP 12.0 CMH2O Total Carbon Dioxide 30.6 mmol/L Bedside Glucose 95 198 White Blood Count 15.8 10^3/uL Red Blood Count 4.09 10^6/uL Hemoglobin 13.1 g/dL Hematocrit 38.6 % Mean Corpuscular Volume 94.4 fL Mean Corpuscular Hemoglobin 32.0 pg Mean Corpuscular Hemoglobin Concent 33.9 g/dL Red Cell Distribution Width 12.6 % Platelet Count 104 10^3/uL Mean Platelet Volume 10.0 fL Sodium Level 138 mmol/L Potassium Level 4.0 mmol/L Chloride Level 103.0 mmol/L Carbon Dioxide Level 31.3 mmol/L Anion Gap 7.7 Blood Urea Nitrogen 16 mg/dL Creatinine 0.65 mg/dL Estimated GFR () 154.3 Est GFR (CKD-EPI)(Non-Afr [place]) 127.5 BUN/Creatinine Ratio 24.0 Glucose Level 129 mg/dL Calcium Level 7.9 mg/dL Total Bilirubin 0.8 mg/dL Aspartate Amino Transf (AST/SGOT) 60 U/L Alanine Aminotransferase (ALT/SGPT) 106 U/L Alkaline Phosphatase 96 U/L Total Protein 5.5 g/dL Albumin 1.4 g/dL Globulin 4.1 Albumin/Globulin Ratio 0.341 Vancomycin Level Trough 13.3 ug/mL Test 09/11/20 07:45 09/11/20 16:29 09/11/20 23:49 09/12/20 04:22 Blood Gas Sample Site RT RADIAL ARTERY Blood Gas pH 7.226 Blood Gas PCO2 87.6 mmHg Blood Gas PO2 41.1 mmHg Blood Gas HCO3 35.5 mmol/L Blood Gas Base Excess 4.0 mmol/L Vince Test POSITIVE Arterial Blood Oxygen Saturation 70.0 % Deoxyhemoglobin 29.5 % Carboxyhemoglobin 1.3 % Methemoglobin 0.5 % Total Hemoglobin 16.8 % Total Oxygen Concentration 16.2 % Blood Gas Temperature 37 Oxygen Delivery Method (LAB) VENTILATOR Blood Gas Vent Mode AC Blood Gas Vent Rate 22 FiO2 100 % Blood Gas Tidal Volume 550 ML Blood Gas PEEP 12.0 CMH2O Total Carbon Dioxide 38.2 mmol/L Bedside Glucose 68 92 White Blood Count 15.2 10^3/uL Red Blood Count 3.89 10^6/uL Hemoglobin 12.4 g/dL Hematocrit 36.7 % Mean Corpuscular Volume 94.3 fL Mean Corpuscular Hemoglobin 31.9 pg Mean Corpuscular Hemoglobin Concent 33.8 g/dL Red Cell Distribution Width 13.1 % Platelet Count 98 10^3/uL Mean Platelet Volume 9.9 fL Sodium Level 137 mmol/L Potassium Level 5.4 mmol/L Chloride Level 103.0 mmol/L Carbon Dioxide Level 26.7 mmol/L Anion Gap 12.7 Blood Urea Nitrogen 41 mg/dL Creatinine 2.28 mg/dL Estimated GFR () 36.3 Est GFR (CKD-EPI)(Non-Afr [place]) 30.0 BUN/Creatinine Ratio 17.0 Glucose Level 107 mg/dL Calcium Level 7.8 mg/dL Total Bilirubin 1.4 mg/dL Aspartate Amino Transf (AST/SGOT) 4222 U/L Alanine Aminotransferase (ALT/SGPT) 4819 U/L Alkaline Phosphatase 110 U/L Total Protein 5.1 g/dL Albumin 1.2 g/dL Globulin 3.9 Albumin/Globulin Ratio 0.307 Vancomycin Level Trough 47.2 ug/mL Test 09/12/20 05:25 09/12/20 08:00 09/12/20 11:39 09/12/20 11:45 Bedside Glucose 116 91 Blood Gas Sample Site LEFT RADIAL ARTERY Blood Gas pH 7.221 Blood Gas PCO2 64.4 mmHg Blood Gas PO2 47.9 mmHg Blood Gas HCO3 25.8 mmol/L Blood Gas Base Excess -3.0 mmol/L Vince Test N/A Arterial Blood Oxygen Saturation 77.4 % Deoxyhemoglobin 22.5 % Carboxyhemoglobin 0.4 % Methemoglobin 0.0 % Total Hemoglobin 12.9 % Total Oxygen Concentration 14.0 % Blood Gas Temperature 37 Oxygen Delivery Method (LAB) vent Blood Gas Vent Mode ac Blood Gas Vent Rate 22 FiO2 100 % Blood Gas Tidal Volume 500 ML Blood Gas PEEP 16.0 CMH2O Total Carbon Dioxide 27.8 mmol/L Ammonia < 10 umol/L Current Medications Medications (Trade) Dose Ordered Sig/Estuardo Route PRN Reason Start Time Stop Time Status Last Admin Dose Admin Enoxaparin Sodium (Lovenox) 40 mg DAILY SQ 08/31/20 09:00 09/04/20 11:47 DC 09/04/20 09:00 Remdesivir 200 mg/ Sodium Chloride 140 ml @ 120.69 mls/ hr OT IV 08/31/20 09:30 08/31/20 10:40 DC 08/31/20 09:38 Lorazepam (Ativan) 1 mg Q3HR PRN IV ANXIETY 08/31/20 05:00 09/01/20 10:41 DC 09/01/20 06:00 Azithromycin 500 mg/Sodium Chloride 250 ml @ 175 mls/hr Q24HRS IV 08/31/20 05:00 09/04/20 08:00 DC 09/04/20 04:12 Ceftriaxone Sodium 1000 mg/ Sodium Chloride 100 ml @ 100 mls/hr Q24HRS IV 08/31/20 05:00 09/05/20 09:27 DC 09/05/20 04:49 Lorazepam (Ativan) 1 mg STAT STAT IV 08/31/20 05:16 08/31/20 08:31 DC 08/31/20 05:34 Sodium Chloride 100 ml @ STK-MED ONCE IV 08/31/20 05:18 08/31/20 05:21 DC Ceftriaxone Sodium (Rocephin) 1,000 mg STK-MED ONCE .ROUTE 08/31/20 05:19 08/31/20 05:21 DC Sodium Chloride 500 ml @ STK-MED ONCE IV 08/31/20 05:37 08/31/20 05:40 DC Morphine Sulfate (Morphine Sulfate) 0.5 mg STAT ONCE IV 08/31/20 06:15 08/31/20 08:44 DC 08/31/20 06:15 Albuterol/ Ipratropium (Duo 0.5-3(2.5) Mg/3 ml) 3 ml RTQ6H IH 08/31/20 08:00 09/30/20 07:59 09/12/20 10:52 Albuterol Sulfate (Ventolin) 2.5 mg RTQ4 PRN IH WHEEZING 08/31/20 08:00 09/30/20 07:59 09/05/20 09:00 Furosemide (Lasix) 40 mg STAT STAT IV 08/31/20 07:55 08/31/20 08:44 DC 08/31/20 08:08 Morphine Sulfate (Morphine Sulfate) 0.5 mg OT STAT IV 08/31/20 07:56 08/31/20 08:44 DC 08/31/20 08:25 Lorazepam (Ativan) 0.5 mg STAT STAT IV 08/31/20 07:56 08/31/20 08:43 DC 08/31/20 08:23 Sodium Chloride 250 ml @ STK-MED ONCE IV 08/31/20 08:03 08/31/20 08:05 DC Sodium Chloride 100 ml @ ud STK-MED ONCE IV 08/31/20 09:34 08/31/20 09:36 DC Remdesivir 100 mg/ Sodium Chloride 120 ml @ 111.111 mls/hr Q24HRS IV 09/01/20 09:00 09/05/20 09:23 DC 09/05/20 08:39 Aspirin (Aspirin) 81 mg DAILY PO 09/01/20 09:00 10/01/20 08:59 09/12/20 09:00 Famotidine (Pepcid) 20 mg BID PO 08/31/20 21:00 09/01/20 22:57 DC 09/01/20 21:00 Ascorbic Acid (Vitamin C) 500 mg BID PO 08/31/20 21:00 09/30/20 20:59 09/12/20 09:00 Zinc Sulfate (Zinc Sulfate) 220 mg DAILY PO 08/31/20 21:00 09/30/20 20:59 09/12/20 09:00 Guaifenesin (Robitussin Dm) 5 ml Q4HR PRN PO COUGH 09/01/20 01:30 09/01/20 10:41 DC Morphine Sulfate (Morphine Sulfate) 2 mg STK-MED ONCE .ROUTE 09/01/20 03:32 09/01/20 03:34 DC Morphine Sulfate (Morphine Sulfate) 0.5 mg STAT STAT IV 09/01/20 03:33 09/01/20 03:35 DC 09/01/20 03:33 Sodium Chloride 100 ml @ ud STK-MED ONCE IV 09/01/20 05:28 09/01/20 05:30 DC Sodium Chloride 250 ml @ ud STK-MED ONCE IV 09/01/20 05:29 09/01/20 05:30 DC Ceftriaxone Sodium (Rocephin) 1,000 mg STK-MED ONCE .ROUTE 09/01/20 05:29 09/01/20 05:31 DC Benzonatate (Tessalon Perle) 100 mg Q2 PRN PO COUGH 09/01/20 06:00 09/01/20 05:50 DC Dexmedetomidine HCl 200 mcg/ Sodium Chloride 50 ml @ 0 mls/hr IV 09/01/20 06:00 09/01/20 08:24 DC Sodium Chloride 250 ml @ ud STK-MED ONCE IV 09/01/20 05:37 09/01/20 05:39 DC Benzonatate (Tessalon Perle) 200 mg TID PRN PO COUGH 09/01/20 06:00 09/01/20 10:41 DC 09/01/20 06:00 Acetaminophen/ Hydrocodone Bitart ([place] 5mg) 1 ea TID PRN PO PAIN 4 - 6 09/01/20 06:00 09/01/20 10:41 DC Dexmedetomidine HCl 400 mcg/ Sodium Chloride 100 ml @ 0 mls/hr IV 09/01/20 08:30 09/04/20 19:42 DC 09/04/20 08:49 Sodium Chloride 1,000 ml @ ud STK-MED ONCE .ROUTE 09/01/20 10:16 09/01/20 10:18 DC Sodium Chloride 1,000 ml @ ud STK-MED ONCE .ROUTE 09/01/20 10:18 09/01/20 10:20 DC Propofol 100 ml @ ud STK-MED ONCE IV 09/01/20 10:28 09/01/20 10:30 DC Vecuronium [place] (Norcuron) 10 mg STK-MED ONCE .ROUTE 09/01/20 10:29 09/01/20 10:31 DC Propofol (Diprivan) Diprivan IV infusion tritra... TITRATE PRN IV sedation 09/01/20 10:30 10/01/20 10:29 09/12/20 04:04 Propofol (Diprivan) STAT STAT IV 09/01/20 10:29 09/01/20 10:38 DC 09/01/20 11:50 Vecuronium [place] (Norcuron) 5 mg Q1HR IV 09/01/20 11:00 09/04/20 11:10 DC 09/04/20 06:28 Vecuronium [place] (Norcuron) 2 mg Q30MIN PRN IV paralysis 09/01/20 11:00 09/08/20 11:19 DC 09/04/20 10:00 Fentanyl Citrate 1000 mcg/Sodium Chloride 100 ml @ 0 mls/hr IV 09/01/20 11:30 09/07/20 20:40 DC 09/07/20 15:43 Sterile Water (Water) 1,000 ml STK-MED ONCE .ROUTE 09/01/20 13:55 09/01/20 13:57 DC Propofol (Diprivan) 200 mg STK-MED ONCE IV 09/01/20 12:00 09/01/20 21:42 DC Rocuronium [place] (Zemuron) 100 mg STK-MED ONCE IV 09/01/20 12:00 09/01/20 21:42 DC Succinylcholine Chloride (Quelicin) 100 mg STK-MED ONCE IV 09/01/20 12:00 09/01/20 21:42 DC Famotidine (Pepcid) 20 mg BID IV 09/02/20 09:00 10/02/20 08:59 09/12/20 09:00 Famotidine (Pepcid) 20 mg STK-MED ONCE IV 09/02/20 07:57 09/02/20 07:59 DC Albuterol/ Ipratropium (Duoneb 0.5 Mg-3 Mg/3 ml Soln) 3 ml STK-MED ONCE IH 09/02/20 08:37 09/02/20 08:39 DC Sterile Water (Water) 1,000 ml STK-MED ONCE .ROUTE 09/03/20 14:28 09/03/20 14:30 DC Sodium Chloride 500 ml @ ud STK-MED ONCE IV 09/04/20 09:35 09/04/20 09:37 DC Vecuronium [place] (Norcuron) 15 mg Q1HR PRN IV vent dsynchrony or hypoxia 09/04/20 11:30 10/04/20 11:29 09/11/20 10:00 Enoxaparin Sodium (Lovenox) 40 mg BID SQ 09/04/20 21:00 09/08/20 10:44 DC 09/08/20 09:36 Sterile Water (Water) 1,000 ml STK-MED ONCE .ROUTE 09/04/20 17:03 09/04/20 17:05 DC Dexmedetomidine HCl 800 mcg/ Sodium Chloride 200 ml @ 0 mls/hr IV 09/04/20 20:00 09/07/20 20:39 DC 09/07/20 11:26 Vancomycin HCl 1.5 gm/Sodium Chloride 300 ml @ 175 mls/hr Q12H IV 09/05/20 11:00 09/07/20 18:15 DC 09/07/20 10:46 Cefepime HCl 2 gm/ Sodium Chloride 100 ml @ 100 mls/hr Q8H IV 09/05/20 09:30 09/07/20 11:14 DC 09/07/20 09:27 Vecuronium [place] (Norcuron) 10 mg STK-MED ONCE .ROUTE 09/05/20 12:00 09/05/20 16:06 DC Sodium Chloride 500 ml @ ud STK-MED ONCE IV 09/05/20 21:36 09/05/20 21:38 DC Piperacillin Sod/ Tazobactam Sod 3.375 gm/Sodium Chloride 100 ml @ 100 mls/hr Q6H IV 09/07/20 11:30 09/07/20 12:27 DC Piperacillin Sod/ Tazobactam Sod 3.375 gm/Sodium Chloride 100 ml @ 100 mls/hr Q6H IV 09/07/20 13:00 09/12/20 09:28 DC 09/12/20 07:00 Vancomycin HCl 1.5 gm/Sodium Chloride 300 ml @ 175 mls/hr Q8H IV 09/07/20 20:00 09/08/20 14:57 DC 09/08/20 13:30 Sodium Chloride 500 ml @ ud STK-MED ONCE IV 09/07/20 20:09 09/07/20 20:10 DC Dexmedetomidine HCl 1600 mcg/ Sodium Chloride 400 ml @ 0 mls/hr IV 09/07/20 21:00 10/07/20 20:59 09/11/20 20:10 Fentanyl Citrate 2000 mcg/Sodium Chloride 200 ml @ 0 mls/hr IV 09/07/20 21:00 09/07/20 20:41 DC Fentanyl Citrate 2000 mcg/Sodium Chloride 200 ml @ 0 mls/hr IV 09/07/20 21:00 10/07/20 20:59 09/12/20 05:06 Enoxaparin Sodium (Lovenox) 90 mg BID SQ 09/08/20 21:00 10/08/20 20:59 09/12/20 09:00 Furosemide (Lasix) 20 mg STAT STAT IV 09/08/20 10:42 09/08/20 11:31 DC 09/08/20 11:44 Furosemide (Lasix) 20 mg STK-MED ONCE .ROUTE 09/08/20 10:52 09/08/20 10:54 DC Dextrose 1,000 ml @ 100 mls/hr Q10H ONCE IV 09/08/20 14:30 09/09/20 00:29 DC 09/08/20 15:10 Vancomycin HCl 1 gm/Sodium Chloride 300 ml @ 175 mls/hr Q8H IV 09/08/20 21:00 09/09/20 08:39 DC 09/09/20 04:50 Sterile Water (Water) 1,000 ml STK-MED ONCE .ROUTE 09/09/20 04:59 09/09/20 05:01 DC Vancomycin HCl 1 gm/Sodium Chloride 250 ml @ 145.843 mls/hr Q8H IV 09/09/20 08:39 09/09/20 08:40 DC Vancomycin HCl 1 gm/Sodium Chloride 250 ml @ 175 mls/hr Q8H IV 09/09/20 13:00 09/12/20 08:32 DC 09/11/20 21:45 Potassium Chloride/Sodium Chloride 1,000 ml @ 100 mls/hr Q10H IV 09/09/20 11:30 09/10/20 12:26 DC 09/09/20 21:30 Furosemide (Lasix) 20 mg STAT STAT IV 09/09/20 12:29 09/09/20 12:32 DC 09/09/20 12:29 Furosemide (Lasix) 40 mg STAT STAT IV 09/10/20 06:17 09/10/20 08:18 DC 09/10/20 06:17 Potassium Chloride/Dextrose 1,000 ml @ 100 mls/hr Q10H IV 09/10/20 12:30 09/11/20 11:08 DC 09/11/20 08:49 Albuterol/ Ipratropium (Duoneb 0.5 Mg-3 Mg/3 ml Soln) 3 ml STK-MED ONCE IH 09/10/20 14:59 09/10/20 15:01 DC Sodium Chloride 500 ml @ ud STK-MED ONCE IV 09/10/20 20:38 09/10/20 20:40 DC Acetaminophen (Ofirmev) 1,000 mg Q8H PRN IV FEVER 09/11/20 08:00 10/11/20 07:59 09/11/20 22:15 Acetaminophen (Ofirmev) 1,000 mg OT IV 09/11/20 08:30 09/11/20 08:31 DC 09/11/20 08:21 Furosemide (Lasix) 20 mg STAT STAT IV 09/11/20 08:31 09/11/20 08:38 DC 09/11/20 08:50 Dextrose/Sodium Chloride 1,000 ml @ 100 mls/hr Q10H IV 09/11/20 11:30 09/11/20 11:09 DC Dextrose/Sodium Chloride 1,000 ml @ 50 mls/hr Q20H IV 09/11/20 11:30 10/11/20 11:29 09/12/20 07:30 Sodium Chloride 500 ml @ 500 mls/hr Q1H ONCE IV 09/11/20 13:00 09/11/20 13:59 DC 09/11/20 13:00 Norepinephrine Bitartrate 8 mg/ Sodium Chloride 250 ml @ 0 mls/hr TITRATE IV 09/11/20 13:30 10/11/20 13:29 09/11/20 14:31 Furosemide (Lasix) 20 mg STAT STAT IV 09/12/20 04:02 09/12/20 04:17 DC 09/12/20 04:02 Furosemide (Lasix) 20 mg STK-MED ONCE .ROUTE 09/12/20 04:04 09/12/20 04:07 DC Calcium Gluconate (Calcium Gluconate) 1,000 mg STAT STAT IV 09/12/20 07:39 09/12/20 08:12 DC Dextrose (Dextrose 50%-Water Syringe) 50 ml STAT STAT IV 09/12/20 07:39 09/12/20 08:12 DC Insulin Human Regular (Humulin R) 10 unit OT ONCE IV 09/12/20 08:00 09/12/20 08:12 DC Piperacillin Sod/ Tazobactam Sod 2.25 gm/Sodium Chloride 100 ml @ 100 mls/hr Q6H IV 09/12/20 13:00 10/12/20 12:59 Furosemide (Lasix) 40 mg STAT STAT IV 09/12/20 11:00 09/12/20 11:06 DC 09/12/20 11:00 VTE VTE Risk Total Score: 2 VTE Risk Score VTE Risk: Score 0-1 = Low Risk (Aggressive mobilization; early ambulation; no VTE prophylaxis required) Score 2: Moderate Risk (Intermittent/Pneumatic Compression Device OR Lovenox/Heparin/Coumadin) Score 3-4: High Risk (Intermittent/Pneumatic Compression Device AND Lovenox/Heparin/Coumadin) Score > or =5: Highest Risk (Intermittent/Pneumatic Compression Device AND Lovenox/Heparin/Coumadin) Antico:Hep/LMWH/Coum/Xarelto: Yes VTE VTE Present on Admission: No Currently receiving anticoagul: Yes VTE Risk Total Score: 2 Antico:Hep/LMWH/Coum/Xarelto: Yes Assessment/Plan Assessment/Plan Assessment/Plan Pt is a 54 YOM wiht pmhx of COVID PNA and arDS and wiht poor prognosis. 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 #2 CV: The pt is normotensive at present. However rapid increase in ddimer and LFTS, would get echo to eval fro RV strain. #3 Pulm: Pt has covid PNA now c/b ARDS and acute respiratory failure with hypoxia requiring intubation. The pt is on FIo2 of 100% and high PEEP. Pt received decadron, remdesivir, vit c, ceftriaxone/azithro, thiamine, check CXR, start duonebs, melatonin. #4 GI: TF when supine. Pt with LfTS to 4000 increase Cr and so concerned pt is in fulminant liver failure. Unclear etiology, current drugs do not classically cause this unless from covid vs thrombosis vs cardiac related. Will need RUQ US with duplex. #5 Renal: Pt with LUISA in setting of liver failure, monitro lytes, pt will likely need CRRT at some point. #6 ID: Covid + s/p remdesivir decadron #7 Endo: keep FS 150-180 #8 Heme: Tx plats >10k hgb >7, pt at risk for clotting and so will give therapuetic a/c . PT with decline in plts, likely hepatic related #9 PPx: lovenox and H2 I discussed pt with VOCATIONAL INSTRUCTOR and completed the video assessment with assistance from the VOCATIONAL INSTRUCTOR. I spent a total of greater than 60 minutes formulating critical care for this patient today. I saw this patient and completed a full visual exam via audio-visual HIPAA compliant technology. YAMILETH PAGAN MD Sep 12, 2020 12:24
--- NOTE | 2020-09-12 13:00 | NUR ---
Pharmacy stated they needed to clarify Zosyn order due to recent lab results.
[2020-09-12] MEDS: ZOSYN 2.25 GM 2.25 GM in NS 100ML 100 ML IV SCH ×4 (15:00→22:42)
--- NOTE | 2020-09-12 16:54 | DIREP ---
PROCEDURE:CHEST 1 VIEW COMPARISON:[facility], CR, XRAY CHEST SINGLE VW, 09/10/2020, 02:30 PM. INDICATIONS:COVID PNA, Intubation FINDINGS: LUNGS/PLEURA:There remain extensive bilateral airspace opacities. VASCULATURE:Normal. Unremarkable pulmonary vasculature. CARDIAC:Normal. No cardiac silhouette abnormality or cardiomegaly. MEDIASTINUM:ET tube 5 cm above the chuy. NG tube extending into the abdomen. BONES:Normal. No fracture or visible bony lesion. OTHER:Left PICC line in the left axilla. Extensive subcutaneous emphysema overlying the right chest and bilateral lower neck monitor leads in place.. CONCLUSION: 1. Extensive airspace opacities remain. 2. Left PICC line tip in the left axilla. ET tube and NG tube in good position. 3. Extensive subcutaneous emphysema. Dictated by: Senthil Escobar M.D. on 09/12/2020 at 04:51 PM
[2020-09-12 17:11] LABS: CALCIUM 7.7 mg/dL (8.4-10.5); CARBON DIOXIDE 23.9 mmol/L (20.0-32)
--- NOTE | 2020-09-12 17:30 | DIREP ---
PROCEDURE:US ABDOMEN LIMITED (SINGLE ORGAN - QUAD) COMPARISON:[facility], CR, XRAY CHEST SINGLE VW, 09/12/2020, 04:03 PM. [facility], CT, CT CHEST W/O, 09/01/2020, 03:57 PM. INDICATIONS:Liver failure TECHNIQUE:High resolution sonographic examination was performed of the abdomen. FINDINGS: PANCREAS:Visualized portions of the pancreatic head and body appear unremarkable. The pancreatic tail is obscured by bowel gas shadowing. LIVER:Increased hepatic echotexture consistent with hepatic steatosis. There is decreased echotexture adjacent to the gallbladder fossa consistent with focal fatty sparing. No focal hepatic lesion is identified. Hepatopetal flow in the portal vein. GALLBLADDER:There is sludge present in the dependent portion of the gallbladder. No evidence for gallbladder wall thickening or pericholecystic fluid. Negative sonographic Grewal's sign. BILIARY:There is no biliary ductal dilatation. RIGHT KIDNEY:Normal. No hydronephrosis. SPLEEN: Normal. OTHER:Small right pleural effusion is incidentally noted. No ascites is identified. CBD:0.6 cm GALLBLADDER WALL: 0.4 cm LIVER: 18.9 cm in length. RIGHT KIDNEY: 13.3 x 6.9 x 5.7 cm SPLEEN:12.7 x 9.0 x 3.4 cm, Volume: 200.7 ml CONCLUSION: 1. Enlarged mildly steatotic liver with focal fatty sparing about the gallbladder fossa. No suspicious liver lesion identified. 2. Gallbladder sludge without evidence of acute cholecystitis. 3. Right pleural effusion. Dictated by: [facility] Physician on 09/12/2020 at 05:17 PM ac
--- NOTE | 2020-09-12 19:16 | PCM.ECHO ---
APPROVED REPORT EXAM: Comprehensive 2D, Doppler, and color-flow Echocardiogram. Patient Location: IN-PATIENT Indications Congestive Heart Failure 2D Dimensions LVOT Diameter 2.32 (1.8-2.4cm) LVEF(%) 65.17 (>50%) M-Mode Dimensions RVDd 2.55 (2.1-3.2cm) Left Atrium(MM) 4.15 (2.5-4.0cm) IVSd 1.30 (0.7-1.1cm) Aortic Root 2.75 (2.2-3.7cm) LVDd 4.40 (4.0-5.6cm) Aortic Cusp Exc 2.10 (1.5-2.0cm) PWd 0.90 (0.7-1.1cm) MV EPSS 0.58 (<0.5cm) IVSs 1.95 cm FS (%) 34.55 % LVDs 2.85 (2.0-3.8cm) ESV(Teich) 31.76 ml PWs 1.20 cm LVEF(%) 63.92 (>50%) Volumes Biplane 2D LV Volumes Biplane 2D LA Volumes LVEDv A4C 96.19 mL LA ESV Index LVESv A4C 33.50 mL Aortic Valve AoV Peak Rashid. 1.80 m/s AoV VTI 27.00 cm AO Peak GR. 12.95 mmHg AO Mean GR. 6.70 mmHg LVOT VTI 26.94 cm LVOT Peak Rashid. 1.49 m/s YOANA(VTI)/BSA 4.23 cm2/m2 YOANA (VTI) 4.23 cm2 Mitral Valve MV E Velocity 0.85m/s MR Peak Gr. 12.25mmHg MV A Velocity 0.70m/s Pulmonary Valve PV Peak Velocity 0.70m/s PV Peak Grad. 2.15mmHg RVOT VTI 14.59cm Tricuspid Valve TR P. Velocity 1.65m/s RAP ESTIMATE 10.00mmHg TR Peak Gr. 11.32mmHg RVSP 21.32mmHg LEFT VENTRICLE The left ventricle is normal size. The left ventricular systolic function is normal. The left ventricular ejection fraction is within the normal range. There is normal left ventricular wall thickness. There is normal LV segmental wall motion. There is no ventricular septal defect visualized. No left ventricle thrombus noted on this study. LVEF is 60-65%. RIGHT VENTRICLE The right ventricle is normal size. The right ventricular systolic function is normal. There is normal right ventricular wall thickness. ATRIA The left atrium size is normal. The right atrium size is normal. The interatrial septum is intact with no evidence for an atrial septal defect. AORTIC VALVE The aortic valve is normal in structure. There is no aortic valvular stenosis. No aortic regurgitation is present. MITRAL VALVE The mitral valve is normal in structure. There is no mitral valve stenosis. Mild to moderate mitral regurgitation. There is no evidence of mitral valve vegetations. TRICUSPID VALVE The tricuspid valve is normal in structure. There is no tricuspid valve stenosis. Mild to moderate tricuspid regurgitation. PULMONIC VALVE Pulmonic valve is not well visualized. There is no pulmonic valvular stenosis. There is no pulmonic valvular regurgitation. GREAT VESSELS The aortic root is normal in size. Pulmonary artery is not well visualized. Aortic arch is not well visualized. The IVC is normal in size and collapses >50% with inspiration. PERICARDIUM There is no pericardial effusion. There is no pleural effusion. Other Information Study Quality: Fair <Conclusion> The left ventricular systolic function is normal. LVEF is 60-65%. Mild to moderate mitral regurgitation. Mild to moderate tricuspid regurgitation. Electronically signed by : MARLEN LUNDBERG. 09/12/2020 19:15:56
--- NOTE | 2020-09-12 19:59 | DIET.OP ---
Nutrition Asmt/Malnutrit 2-17 Actual Date of Review: Sep 12, 2020 Nutritional Screening: vent/TF Diagnosis: COVID 19, resp distress Pertinent Medical Hx/Surgical: HTN Subjective Information: Telehealth consult - pt intubated and sedated. Propofol at 10 mcg/kg/min providing 147 kcal. Pt being proned 16 hrs a day and TF held while in prone. Pt tolerating TF's poorly in supine and getting about 1 can a day. He had very little urine output today. Current Diet Order/Nutrition S: EN Pertinent Meds Current Medications Medications (Trade) Dose Ordered Sig/Estuardo PRN Reason Start Time Stop Time Status Last Admin Acetaminophen (Ofirmev) 1,000 mg Q8H PRN FEVER 09/11/20 08:00 10/11/20 07:59 09/11/20 22:15 Dextrose/Sodium Chloride 1,000 ml @ 50 mls/hr Q20H 09/11/20 11:30 10/11/20 11:29 09/12/20 07:30 Norepinephrine Bitartrate 8 mg/ Sodium Chloride 250 ml @ 0 mls/hr TITRATE 09/11/20 13:30 10/11/20 13:29 09/11/20 14:31 Piperacillin Sod/ Tazobactam Sod 2.25 gm/Sodium Chloride 100 ml @ 100 mls/hr Q6H 09/12/20 16:00 10/12/20 15:59 Pertinent Labs Laboratory Tests Test 09/11/20 04:26 09/11/20 07:45 09/11/20 16:29 09/11/20 23:49 White Blood Count 15.8 10^3/uL Red Blood Count 4.09 10^6/uL Hemoglobin 13.1 g/dL Hematocrit 38.6 % Mean Corpuscular Volume 94.4 fL Mean Corpuscular Hemoglobin 32.0 pg Mean Corpuscular Hemoglobin Concent 33.9 g/dL Red Cell Distribution Width 12.6 % Platelet Count 104 10^3/uL Mean Platelet Volume 10.0 fL Sodium Level 138 mmol/L Potassium Level 4.0 mmol/L Chloride Level 103.0 mmol/L Carbon Dioxide Level 31.3 mmol/L Anion Gap 7.7 Blood Urea Nitrogen 16 mg/dL Creatinine 0.65 mg/dL Estimated GFR () 154.3 Est GFR (CKD-EPI)(Non-Afr Angolan) 127.5 BUN/Creatinine Ratio 24.0 Glucose Level 129 mg/dL Calcium Level 7.9 mg/dL Total Bilirubin 0.8 mg/dL Aspartate Amino Transf (AST/SGOT) 60 U/L Alanine Aminotransferase (ALT/SGPT) 106 U/L Alkaline Phosphatase 96 U/L Total Protein 5.5 g/dL Albumin 1.4 g/dL Globulin 4.1 Albumin/Globulin Ratio 0.341 Vancomycin Level Trough 13.3 ug/mL Blood Gas Sample Site RT RADIAL ARTERY Blood Gas pH 7.226 Blood Gas PCO2 87.6 mmHg Blood Gas PO2 41.1 mmHg Blood Gas HCO3 35.5 mmol/L Blood Gas Base Excess 4.0 mmol/L Vince Test POSITIVE Arterial Blood Oxygen Saturation 70.0 % Deoxyhemoglobin 29.5 % Carboxyhemoglobin 1.3 % Methemoglobin 0.5 % Total Hemoglobin 16.8 % Total Oxygen Concentration 16.2 % Blood Gas Temperature 37 Oxygen Delivery Method (LAB) VENTILATOR Blood Gas Vent Mode AC Blood Gas Vent Rate 22 FiO2 100 % Blood Gas Tidal Volume 550 ML Blood Gas PEEP 12.0 CMH2O Total Carbon Dioxide 38.2 mmol/L Bedside Glucose 68 92 Test 09/12/20 04:22 09/12/20 05:25 09/12/20 08:00 09/12/20 11:39 White Blood Count 15.2 10^3/uL Red Blood Count 3.89 10^6/uL Hemoglobin 12.4 g/dL Hematocrit 36.7 % Mean Corpuscular Volume 94.3 fL Mean Corpuscular Hemoglobin 31.9 pg Mean Corpuscular Hemoglobin Concent 33.8 g/dL Red Cell Distribution Width 13.1 % Platelet Count 98 10^3/uL Mean Platelet Volume 9.9 fL Sodium Level 137 mmol/L Potassium Level 5.4 mmol/L Chloride Level 103.0 mmol/L Carbon Dioxide Level 26.7 mmol/L Anion Gap 12.7 Blood Urea Nitrogen 41 mg/dL Creatinine 2.28 mg/dL Estimated GFR () 36.3 Est GFR (CKD-EPI)(Non-Afr Angolan) 30.0 BUN/Creatinine Ratio 17.0 Glucose Level 107 mg/dL Calcium Level 7.8 mg/dL Total Bilirubin 1.4 mg/dL Aspartate Amino Transf (AST/SGOT) 4222 U/L Alanine Aminotransferase (ALT/SGPT) 4819 U/L Alkaline Phosphatase 110 U/L Total Protein 5.1 g/dL Albumin 1.2 g/dL Globulin 3.9 Albumin/Globulin Ratio 0.307 Vancomycin Level Trough 47.2 ug/mL Bedside Glucose 116 Blood Gas Sample Site LEFT RADIAL ARTERY Blood Gas pH 7.221 Blood Gas PCO2 64.4 mmHg Blood Gas PO2 47.9 mmHg Blood Gas HCO3 25.8 mmol/L Blood Gas Base Excess -3.0 mmol/L Vince Test N/A Arterial Blood Oxygen Saturation 77.4 % Deoxyhemoglobin 22.5 % Carboxyhemoglobin 0.4 % Methemoglobin 0.0 % Total Hemoglobin 12.9 % Total Oxygen Concentration 14.0 % Blood Gas Temperature 37 Oxygen Delivery Method (LAB) vent Blood Gas Vent Mode ac Blood Gas Vent Rate 22 FiO2 100 % Blood Gas Tidal Volume 500 ML Blood Gas PEEP 16.0 CMH2O Total Carbon Dioxide 27.8 mmol/L Prothrombin Time 14.2 SEC Prothrombin Time INR (Non-Therap) 1.4 Ammonia < 10 umol/L Test 09/12/20 11:43 09/12/20 11:45 09/12/20 16:47 09/12/20 17:28 Total Creatine Kinase 854 U/L Triglycerides Level 210 mg/dL Bedside Glucose 91 111 Sodium Level 137 mmol/L Potassium Level 5.7 mmol/L Chloride Level 101.0 mmol/L Carbon Dioxide Level 23.9 mmol/L Glucose Level 112 mg/dL Blood Urea Nitrogen 67 mg/dL Creatinine 3.14 mg/dL Calcium Level 7.7 mg/dL Anion Gap 17.8 Estimated GFR () 25.1 Est GFR (CKD-EPI)(Non-Afr Angolan) 20.7 BUN/Creatinine Ratio 21.0 Height (Feet): 5 Height (Inches): 7 Current Weight: 204 %IBW: 138 Recent Weight Change: No Weight Status: Obese Food Allergies: No BEE in Kcals: Use Current Weight Calories/Kcals/Kg: [place] St Eq for vent Kcals Calculated: 2048 kcal Protein: Use Current Weight Protein g/k.8-1 Protein Calculated: 74-93g Fluid: ml: 2048 ml (1ml/kcal) Nutritional Problem: Nutr. Problems Present Problems: Inadequate enteral nurition infusion Etiology: pt not being fed in the prone position and tolerating poorly Signs/Symptoms: pt had only 1 can of twocal formula yesterday which provides 475 kcal and 20g protein. RD Comments: 1. Recommend 130 ml bolus of twocal formula q 3 hrs while pt is in supine position as tolerated. (goal is three 130 ml bolus pushes during the 8 hrs supine). 200 ml water flushes q 4 hrs. This will provide 780 kcal, 32 g pro, 85 g CHO, 35 g fat, and 1020 mls of water meeting 100% of the pts needs in combination with propofol. 2. Monitor lytes and BG and correct as indicated. 3. RD to update recommendations based on vent and sedation settings. Expected Outcomes TF meeting 50% of pts estimated needs the next 2 days. Malnutrtion/Nutrition Risk Edu: No Notificiation Needed?: No Brittany Coleman Sep 12, 2020 19:59
--- NOTE | 2020-09-12 21:30 | NUR ---
Notified Dr. Pickens of plt count 98 and Cr 3.14, pt currently on Lovenox 90 mg BID, orders to continue medication at this time.
[2020-09-13] VITALS (63 sets, daily range): BP systolic 0–170; BP diastolic 0–93
[2020-09-13] MEDS: DUO 0.5-3(2.5) MG/3 ML IH SCH ×3 (02:50→14:49)
[2020-09-13] MEDS: D5NS 1,000 ML IV SCH (03:04)
[2020-09-13] MEDS: ZOSYN 2.25 GM 2.25 GM in NS 100ML 100 ML IV SCH ×3 (04:00→15:56)
[2020-09-13 05:02] LABS: MEAN CORP HGB 31.6 pg (26-34); RED CELL DISTRIBUTION WIDTH 13.5 % (11.5-14.5)
[2020-09-13 05:37] LABS: CALCIUM 7.5 mg/dL (8.4-10.5)
[2020-09-13] MEDS ORDERED: LASIX IV STA ×2 (07:34→11:28)
[2020-09-13] MEDS ORDERED: CALCIUM GLUCONATE IV STA (07:49)
[2020-09-13] MEDS ORDERED: DEXTROSE 50%-WATER SYRINGE IV STA ×2 (07:49→07:53)
[2020-09-13] MEDS ORDERED: CALCIUM GLUCONATE IV ONE (07:49)
[2020-09-13] MEDS ORDERED: DEXTROSE 50%-WATER SYRINGE IV ONE (07:49)
[2020-09-13] MEDS ORDERED: HUMULIN R IV ONE (08:00)
[2020-09-13] MEDS ORDERED: HUMULIN R SQ ONE (08:00)
[2020-09-13] MEDS: PEPCID IV SCH (08:06)
[2020-09-13] MEDS: ZINC SULFATE PO SCH (08:06)
[2020-09-13] MEDS: ASPIRIN PO SCH (08:06)
[2020-09-13] MEDS: DEXAMETHASONE 10 MG/ML VIAL IV SCH (08:06)
[2020-09-13] MEDS: LOVENOX SQ SCH (08:06)
[2020-09-13] MEDS: VITAMIN C PO SCH (08:06)
[2020-09-13 08:19] LABS: ABG PCO2 68.9 mmHg (35.0-45.0); ABG PH 7.076 (7.350-7.450); BE(B) -11.7 mmol/L (-2.0-2.0); HCO3act 19.8 mmol/L (22.0-26.0); pO2 52.7 mmHg (80.0-100.0)
[2020-09-13] MEDS ORDERED: BUMINATE 25% IV STA (11:28)
--- NOTE | 2020-09-13 12:16 | TELE.CONS ---
Consultation Reason for Consult: Reason for Consultation: COVID/ARDS Review of Systems Constitutional: Fever ENT: Other Respiratory: Shortness of breath, SOB with excertion Allergies: Coded Allergies: Sulfa (Sulfonamide Antibiotics) (Verified Allergy, Mild, 08/31/20) Scheduled Atorvastatin 10MG (Lipitor 10MG), 1 TAB PO HS, (Reported) Bisoprolol Fumarate/Hctz (Bisoprolol-Hctz 5-6.25 Mg Tab), 1 TAB PO DAILY, (Reported) Temazepam (Restoril), 1 CAP PO HS, (Reported) VITALS REVIEW VITALS Vital Sign - Last 24 Hours 08/31/20 08/31/20 08/31/20 08/31/20 00:59 00:59 00:59 01:31 Temp 99.3 99.1 99.1 99.1 Pulse 96 96 96 89 Resp 22 22 22 22 B/P (MAP) 154/64 (94) 133/78 (96) Pulse Ox 85 85 85 O2 Delivery Non-Rebreather Non-Rebreather O2 Flow Rate 15.00 15.00 08/31/20 08/31/20 08/31/20 08/31/20 02:09 03:00 03:05 03:25 Temp 99.2 99.2 99.6 Pulse 85 86 102 Resp 23 22 22 B/P (MAP) 130/82 (98) 135/75 (95) 159/87 (111) Pulse Ox 90 91 90 O2 Delivery Non-Rebreather Bi-pap Non-Rebreather Non-Rebreather O2 Flow Rate 15.00 100.00 15.00 15.00 08/31/20 08/31/20 08/31/20 08/31/20 04:27 04:48 04:56 06:14 Temp 99.3 Pulse 92 114 85 Resp 30 42 22 B/P (MAP) 136/82 (100) Pulse Ox 86 88 90 O2 Delivery Comfort Ryne S/T Non-Rebreather S/T O2 Flow Rate 60.00 15.00 FiO2 100 100 100 08/31/20 08/31/20 08/31/20 08/31/20 08:08 08:30 08:54 08:54 Pulse 111 114 Resp 39 44 B/P (MAP) 141/91 Pulse Ox 91 91 O2 Delivery Bi-pap 11/20/08/31/20 08/31/20 08/31/20 08:57 08:57 09:03 11:27 Temp 100.0 Pulse 119 110 103 104 Resp 44 45 60 36 B/P (MAP) 141/91 (108) Pulse Ox 90 87 89 94 O2 Delivery CPAP CPAP FiO2 100 100 08/31/20 08/31/20 08/31/20 08/31/20 11:49 14:30 15:23 15:45 Temp 98.5 Pulse 111 92 91 Resp 58 49 49 B/P (MAP) 119/85 (96) Pulse Ox 89 90 90 O2 Delivery CPAP FiO2 100 08/31/20 08/31/20 08/31/20 08/31/20 15:52 16:00 16:00 16:30 Temp 97.3 98.0 Pulse 93 85 92 Resp 44 55 40 B/P (MAP) 145/95 (112) 128/78 (95) Pulse Ox 89 91 91 O2 Delivery Bi-pap 08/31/20 08/31/20 08/31/20 08/31/20 16:34 16:45 16:49 17:00 Pulse 86 86 98 89 Resp 62 34 42 B/P (MAP) 127/82 (97) Pulse Ox 90 89 88 93 08/31/20 08/31/20 08/31/20 08/31/20 17:01 17:02 17:02 17:04 Pulse 93 99 101 87 Resp 39 39 38 37 B/P (MAP) 128/78 (95) Pulse Ox 92 91 91 90 O2 Delivery CPAP FiO2 100 08/31/20 08/31/20 08/31/20 08/31/20 17:15 17:19 17:30 17:34 Pulse 83 89 91 88 Resp 78 34 32 B/P (MAP) 136/109 (118) 134/78 (96) Pulse Ox 90 87 89 88 08/31/20 08/31/20 08/31/20 08/31/20 17:45 17:49 18:00 18:02 Pulse 89 87 89 92 Resp 69 54 47 B/P (MAP) 134/91 (105) Pulse Ox 86 89 88 89 O2 Delivery CPAP FiO2 100 08/31/20 08/31/20 08/31/20 08/31/20 18:04 18:15 18:19 19:34 Pulse 84 86 77 82 Resp 43 26 39 49 B/P (MAP) 138/68 (91) 125/58 (80) 117/74 (88) Pulse Ox 88 91 90 93 08/31/20 08/31/20 08/31/20 08/31/20 19:45 19:49 20:00 20:00 Pulse 74 69 97 Resp 41 42 57 B/P (MAP) 118/69 (85) Pulse Ox 94 92 86 O2 Delivery C-Pap 08/31/20 08/31/20 08/31/20 08/31/20 20:04 20:15 20:19 20:30 Pulse 87 71 81 81 Resp 37 28 41 B/P (MAP) 121/77 (92) 124/69 (87) Pulse Ox 88 93 91 91 08/31/20 08/31/20 08/31/20 08/31/20 20:34 20:45 20:49 20:50 Temp 97.0 Pulse 78 76 84 Resp 43 48 B/P (MAP) 124/69 (87) 115/79 (91) Pulse Ox 90 93 91 08/31/20 08/31/20 08/31/20 08/31/20 21:00 21:04 21:15 21:19 Pulse 82 88 86 86 Resp 47 57 26 40 B/P (MAP) 126/84 (98) 138/72 (94) Pulse Ox 91 87 89 87 08/31/20 08/31/20 08/31/20 08/31/20 21:30 21:34 21:45 21:45 Pulse 99 92 88 98 Resp 42 33 83 B/P (MAP) 142/85 (104) Pulse Ox 88 89 91 89 O2 Delivery CPAP FiO2 100 08/31/20 08/31/20 08/31/20 09/01/20 22:44 22:46 22:46 00:00 Temp 98.4 Pulse 88 88 88 Resp 33 33 33 Pulse Ox 90 90 91 09/01/20 09/01/20 09/01/20 09/01/20 00:00 00:30 04:00 04:00 Temp 98.1 Pulse 83 Resp 41 Pulse Ox 92 O2 Delivery C-Pap CPAP C-Pap FiO2 100 09/01/20 09/01/20 09/01/20 09/01/20 04:00 04:09 04:15 04:23 Pulse 73 94 86 76 Resp 43 36 27 50 B/P (MAP) 133/71 (91) 104/49 (67) Pulse Ox 92 83 89 91 09/01/20 09/01/20 09/01/20 09/01/20 04:30 04:39 04:45 04:54 Pulse 82 96 94 Resp 42 48 B/P (MAP) 131/87 (102) 105/43 (63) Pulse Ox 91 82 86 85 09/01/20 09/01/20 09/01/20 09/01/20 05:00 05:00 05:08 05:15 Pulse 84 103 110 99 Resp 40 47 73 46 B/P (MAP) 120/75 (90) Pulse Ox 93 85 83 90 O2 Delivery CPAP FiO2 100 09/01/20 09/01/20 09/01/20 09/01/20 05:23 05:30 05:38 05:45 Pulse 102 88 94 88 Resp 28 33 47 B/P (MAP) 110/66 (81) 118/71 (87) Pulse Ox 79 82 88 91 09/01/20 09/01/20 09/01/20 09/01/20 05:53 07:15 09:36 09:36 Pulse 98 111 107 Resp 45 45 B/P (MAP) 116/76 (89) Pulse Ox 87 91 90 O2 Delivery C-Pap 09/01/20 09/01/20 09/01/20 09/01/20 09:37 10:47 11:00 11:48 Pulse 111 76 76 Resp 51 22 22 Pulse Ox 91 91 91 O2 Delivery CPAP Mechanical Ventilator FiO2 100 100 100 09/01/20 09/01/20 09/01/20 09/01/20 14:50 14:50 14:50 14:54 Pulse 74 74 76 74 Resp 22 22 22 22 Pulse Ox 94 94 91 94 FiO2 100 09/01/20 09/01/20 09/01/20 09/01/20 15:00 15:48 15:58 16:00 Pulse 102 73 75 Resp 25 24 B/P (MAP) 107/69 (82) Pulse Ox 91 95 95 O2 Delivery Mechanical Ventilator 09/01/20 09/01/20 09/01/20 09/01/20 16:01 16:04 16:07 16:10 Pulse 77 75 78 73 Resp 23 23 24 22 B/P (MAP) 104/66 (79) 102/63 (76) 104/58 (73) 102/62 (75) Pulse Ox 95 95 95 95 09/01/20 09/01/20 09/01/20 09/01/20 16:13 16:15 16:16 16:19 Pulse 72 77 77 77 Resp 21 23 23 22 B/P (MAP) 101/62 (75) 107/61 (76) 100/61 (74) Pulse Ox 95 95 95 96 09/01/20 09/01/20 09/01/20 09/01/20 16:22 16:25 16:28 16:30 Pulse 78 76 77 78 Resp 23 24 23 23 B/P (MAP) 100/60 (73) 105/61 (76) 101/65 (77) Pulse Ox 95 95 95 95 09/01/20 09/01/20 09/01/20 09/01/20 16:31 16:34 16:37 16:56 Pulse 77 77 79 73 Resp 24 24 23 22 B/P (MAP) 102/61 (75) 101/64 (76) 98/62 (74) Pulse Ox 95 96 95 93 FiO2 100 09/01/20 09/01/20 09/01/20 09/01/20 19:13 19:15 19:16 19:19 Pulse 67 79 81 73 Resp 22 24 25 B/P (MAP) 106/72 (83) 112/67 (82) 105/60 (75) Pulse Ox 96 85 91 92 09/01/20 09/01/20 09/01/20 09/01/20 19:22 19:25 19:28 19:30 Pulse 74 71 73 73 Resp 24 23 23 24 B/P (MAP) 105/60 (75) 106/61 (76) 106/62 (77) Pulse Ox 91 91 91 92 09/01/20 09/01/20 09/01/20 09/01/20 19:31 19:34 19:37 19:40 Pulse 72 72 72 71 Resp 23 23 23 23 B/P (MAP) 106/62 (77) 107/64 (78) 102/60 (74) 105/61 (76) Pulse Ox 92 92 92 92 09/01/20 09/01/20 09/01/20 09/01/20 19:43 19:45 19:46 19:49 Pulse 72 71 71 72 Resp 22 23 24 24 B/P (MAP) 108/59 (75) 107/61 (76) 106/61 (76) Pulse Ox 92 92 92 92 09/01/20 09/01/20 09/01/20 09/01/20 19:52 19:55 19:58 20:00 Pulse 72 72 73 72 Resp 23 23 23 26 B/P (MAP) 104/64 (77) 104/63 (77) 100/62 (75) Pulse Ox 92 92 91 92 FiO2 100 09/01/20 09/01/20 09/01/20 09/01/20 20:00 20:13 20:15 20:16 Pulse 72 73 73 Resp 23 23 23 B/P (MAP) 105/61 (76) 106/63 (77) Pulse Ox 90 90 90 O2 Delivery Mechanical Ventilator 09/01/20 09/01/20 09/01/20 09/01/20 20:19 20:22 20:25 20:28 Pulse 73 72 73 72 Resp 23 23 B/P (MAP) 105/63 (77) 104/62 (76) 106/61 (76) 102/62 (75) Pulse Ox 90 91 90 91 09/01/20 09/01/20 09/01/20 09/01/20 20:30 20:31 20:34 20:37 Pulse 71 72 69 73 Resp 23 23 22 22 B/P (MAP) 107/66 (80) 103/55 (71) 99/57 (71) Pulse Ox 91 91 90 90 09/01/20 09/01/20 09/01/20 09/01/20 20:40 20:43 20:45 20:46 Pulse 71 70 77 72 Resp 22 22 22 22 B/P (MAP) 105/61 (76) 103/62 (76) 111/64 (80) Pulse Ox 90 90 91 92 09/01/20 09/01/20 09/01/20 09/01/20 20:49 20:52 20:55 20:58 Pulse 73 73 67 74 Resp 22 22 22 23 B/P (MAP) 104/61 (75) 108/62 (77) 111/63 (79) 108/63 (78) Pulse Ox 92 92 93 92 09/01/20 09/01/20 09/01/20 09/01/20 21:10 21:11 21:12 21:12 Pulse 74 74 74 74 Resp 22 22 22 22 Pulse Ox 91 91 91 91 FiO2 100 09/01/20 09/01/20 09/01/20 09/01/20 21:46 21:49 21:52 21:55 Pulse 80 80 79 79 Resp 22 22 22 22 B/P (MAP) 106/62 (77) 110/63 (79) 109/63 (78) 110/58 (75) Pulse Ox 91 92 91 91 09/01/20 09/01/20 09/01/20 09/01/20 21:58 22:00 22:01 22:04 Pulse 79 78 80 80 Resp 22 22 22 23 B/P (MAP) 108/59 (75) 108/64 (79) 106/60 (75) Pulse Ox 92 92 92 92 09/01/20 09/01/20 09/01/20 09/01/20 22:07 22:10 22:13 22:15 Pulse 81 79 77 80 Resp 25 24 24 23 B/P (MAP) 107/61 (76) 107/63 (78) 110/65 (80) Pulse Ox 92 92 92 92 09/01/20 09/01/20 09/01/20 09/01/20 22:16 22:19 22:22 22:25 Pulse 79 80 80 77 Resp 24 25 24 25 B/P (MAP) 106/60 (75) 111/61 (78) 109/62 (78) 109/61 (77) Pulse Ox 92 92 92 92 09/01/20 09/01/20 09/01/20 09/01/20 22:28 22:30 22:31 22:34 Pulse 77 80 78 78 Resp 24 24 24 23 B/P (MAP) 110/67 (81) 106/63 (77) 110/63 (79) Pulse Ox 92 92 92 92 09/01/20 09/01/20 09/01/20 09/01/20 23:10 23:30 23:31 23:34 Pulse 76 77 74 76 Resp 22 22 23 26 B/P (MAP) 113/62 (79) 107/62 (77) Pulse Ox 92 92 92 92 FiO2 100 09/01/20 09/01/20 09/01/20 09/01/20 23:37 23:40 23:43 23:45 Pulse 76 76 73 75 Resp 26 26 26 27 B/P (MAP) 109/61 (77) 109/58 (75) 112/62 (79) Pulse Ox 92 93 93 93 09/01/20 09/01/20 09/01/20 09/01/20 23:46 23:49 23:52 23:55 Pulse 74 74 83 72 Resp B/P (MAP) 112/59 (76) 113/66 (82) 116/67 (83) 117/66 (83) Pulse Ox 93 93 94 93 09/01/20 09/02/20 09/02/20 09/02/20 23:58 00:00 00:00 00:13 Pulse 78 80 75 Resp B/P (MAP) 118/65 (82) 114/66 (82) Pulse Ox 93 93 93 O2 Delivery Mechanical Ventilator FiO2 100 09/02/20 09/02/20 09/02/20 09/02/20 00:15 00:16 00:19 00:22 Pulse 76 77 75 75 Resp B/P (MAP) 118/65 (82) 114/67 (83) 119/63 (81) Pulse Ox 93 93 92 93 09/02/20 09/02/20 09/02/20 09/02/20 00:25 00:28 00:30 00:31 Pulse 76 75 76 77 Resp B/P (MAP) 117/68 (84) 115/65 (82) 115/64 (81) Pulse Ox 93 92 92 92 09/02/20 09/02/20 09/02/20 09/02/20 00:34 00:37 00:40 00:43 Pulse 77 80 79 80 Resp B/P (MAP) 112/62 (79) 110/63 (79) 110/63 (79) 107/64 (78) Pulse Ox 93 92 92 92 09/02/20 09/02/20 09/02/20 09/02/20 00:45 00:46 00:49 00:52 Pulse 82 81 79 80 Resp B/P (MAP) 108/63 (78) 109/61 (77) 107/67 (80) Pulse Ox 92 92 92 93 09/02/20 09/02/20 09/02/20 09/02/20 00:55 00:58 01:13 01:15 Pulse 80 77 80 73 Resp 24 25 35 22 B/P (MAP) 109/65 (80) 109/63 (78) 114/60 (78) Pulse Ox 92 93 88 91 09/02/20 09/02/20 09/02/20 09/02/20 01:16 01:19 01:22 01:25 Pulse 76 77 75 74 Resp 22 B/P (MAP) 107/64 (78) 108/59 (75) 110/63 (79) 109/62 (78) Pulse Ox 92 92 92 93 09/02/20 09/02/20 09/02/20 09/02/20 01:28 01:30 01:31 01:34 Pulse 73 73 75 77 Resp 22 B/P (MAP) 110/61 (77) 109/63 (78) 107/61 (76) Pulse Ox 92 92 92 93 09/02/20 09/02/20 09/02/20 09/02/20 01:37 01:40 01:43 01:45 Pulse 76 76 75 74 Resp 22 B/P (MAP) 105/64 (78) 105/62 (76) 104/63 (77) Pulse Ox 93 92 92 92 09/02/20 09/02/20 09/02/20 09/02/20 01:46 01:49 01:52 01:55 Pulse 75 77 79 75 Resp 23 B/P (MAP) 113/62 (79) 108/64 (79) 107/61 (76) 107/62 (77) Pulse Ox 92 93 93 93 09/02/20 09/02/20 09/02/20 09/02/20 01:58 02:20 02:25 02:28 Pulse 76 79 74 71 Resp 18 22 22 B/P (MAP) 110/61 (77) 104/61 (75) 104/59 (74) Pulse Ox 92 93 93 93 FiO2 100 09/02/20 09/02/20 09/02/20 09/02/20 02:30 02:31 02:34 02:37 Pulse 73 70 69 70 Resp 22 B/P (MAP) 104/59 (74) 103/60 (74) 102/58 (73) Pulse Ox 93 93 93 93 09/02/20 09/02/20 09/02/20 09/02/20 02:40 02:43 02:45 02:46 Pulse 70 73 73 71 Resp B/P (MAP) 105/60 (75) 103/59 (74) 102/60 (74) Pulse Ox 93 93 93 93 09/02/20 09/02/20 09/02/20 09/02/20 02:49 02:52 02:55 02:58 Pulse 72 74 75 72 Resp B/P (MAP) 105/60 (75) 101/59 (73) 102/56 (71) 103/55 (71) Pulse Ox 93 93 93 93 09/02/20 09/02/20 09/02/20 09/02/20 03:00 03:01 03:04 03:07 Pulse 73 71 69 70 Resp B/P (MAP) 102/58 (73) 100/57 (71) 99/57 (71) Pulse Ox 93 93 93 93 09/02/20 09/02/20 09/02/20 09/02/20 03:10 03:13 03:22 03:25 Pulse 70 71 71 69 Resp B/P (MAP) 99/59 (72) 102/56 (71) 100/60 (73) 102/60 (74) Pulse Ox 93 93 93 93 09/02/20 09/02/20 09/02/20 09/02/20 03:28 03:29 03:31 03:34 Pulse 69 71 70 69 Resp B/P (MAP) 102/58 (73) 103/56 (72) 101/60 (74) Pulse Ox 93 93 93 93 09/02/20 09/02/20 09/02/20 09/02/20 03:37 03:40 03:43 03:44 Pulse 71 69 72 70 Resp B/P (MAP) 105/61 (76) 105/54 (71) 102/58 (73) Pulse Ox 93 93 93 92 09/02/20 09/02/20 09/02/20 09/02/20 03:46 03:49 03:52 03:55 Pulse 69 71 74 75 Resp B/P (MAP) 104/59 (74) 101/56 (71) 104/58 (73) 102/59 (73) Pulse Ox 93 93 93 93 09/02/20 09/02/20 09/02/20 09/02/20 03:58 03:59 04:00 04:00 Pulse 72 76 80 Resp B/P (MAP) 104/56 (72) Pulse Ox 92 93 93 O2 Delivery Mechanical Ventilator FiO2 100 09/02/20 09/02/20 09/02/20 09/02/20 04:01 04:04 04:04 04:08 Pulse 75 87 Resp 22 22 B/P (MAP) 103/61 (75) 107/56 (73) 107/56 (73) Pulse Ox 92 90 90 94 09/02/20 09/02/20 09/02/20 09/02/20 04:08 04:09 04:09 04:22 Temp 98.8 Pulse 87 Resp 22 B/P (MAP) 123/65 (84) Pulse Ox 94 92 92 09/02/20 09/02/20 09/02/20 09/02/20 04:24 04:28 04:30 04:31 Temp 98.8 98.6 98.6 98.6 Pulse 123 120 126 115 Resp B/P (MAP) 128/73 (91) 121/77 (92) 129/70 (89) Pulse Ox 97 98 98 98 09/02/20 09/02/20 09/02/20 09/02/20 04:34 04:37 04:40 04:43 Temp 98.6 98.6 98.6 98.6 Pulse 114 105 97 94 Resp B/P (MAP) 127/83 (98) 127/82 (97) 118/63 (81) 115/64 (81) Pulse Ox 97 98 97 97 09/02/20 09/02/20 09/02/20 09/02/20 04:45 04:46 04:49 04:49 Temp 98.6 98.6 98.6 Pulse 94 92 87 118 Resp B/P (MAP) 118/72 (87) 139/87 (104) Pulse Ox 97 96 94 98 FiO2 100 09/02/20 09/02/20 09/02/20 09/02/20 04:52 04:55 04:58 05:07 Temp 98.6 98.6 98.6 98.6 Pulse 122 116 104 90 Resp 34 36 32 28 B/P (MAP) 144/95 (111) 130/74 (92) 123/66 (85) 113/67 (82) Pulse Ox 98 98 98 97 09/02/20 09/02/20 09/02/20 09/02/20 05:10 05:13 05:15 05:16 Temp 98.6 98.6 98.6 98.6 Pulse 105 99 122 104 Resp B/P (MAP) 130/76 (94) 129/77 (94) 129/72 (91) Pulse Ox 97 97 98 97 09/02/20 09/02/20 09/02/20 09/02/20 05:19 05:22 05:25 05:28 Temp 98.6 98.6 98.6 98.6 Pulse 104 112 113 95 Resp B/P (MAP) 125/74 (91) 140/95 (110) 136/70 (92) 119/62 (81) Pulse Ox 98 98 98 97 09/02/20 09/02/20 09/02/20 09/02/20 05:30 05:31 05:34 05:37 Temp 98.6 98.6 98.6 98.6 Pulse 93 91 92 93 Resp B/P (MAP) 113/65 (81) 113/62 (79) 118/66 (83) Pulse Ox 97 97 97 97 09/02/20 09/02/20 09/02/20 09/02/20 05:40 05:43 05:45 05:46 Temp 98.6 98.6 98.6 98.6 Pulse 105 103 96 95 Resp B/P (MAP) 125/74 (91) 136/83 (100) 116/66 (83) Pulse Ox 98 98 98 98 09/02/20 09/02/20 09/02/20 09/02/20 05:49 05:52 07:00 07:00 Temp 98.6 98.6 Pulse 90 91 80 Resp B/P (MAP) 116/64 (81) 111/57 (75) Pulse Ox 97 97 93 O2 Delivery Mechanical Ventilator FiO2 100 09/02/20 09/02/20 09/02/20 09/02/20 07:21 07:21 07:28 07:30 Temp 99.0 99.0 Pulse 98 98 83 87 Resp B/P (MAP) 112/65 (81) Pulse Ox 97 97 97 97 FiO2 100 09/02/20 09/02/20 09/02/20 09/02/20 07:31 07:34 07:37 07:40 Temp 99.0 99.0 99.0 99.1 Pulse 80 80 80 78 Resp 23 B/P (MAP) 106/60 (75) 108/62 (77) 107/56 (73) 112/65 (81) Pulse Ox 97 97 97 97 09/02/20 09/02/20 09/02/20 09/02/20 07:43 07:45 07:46 07:49 Temp 99.1 99.1 99.1 99.1 Pulse 81 78 85 84 Resp B/P (MAP) 106/58 (74) 108/60 (76) 107/60 (76) Pulse Ox 97 97 97 97 09/02/20 09/02/20 09/02/20 09/02/20 07:52 07:55 07:58 08:00 Temp 99.1 99.1 99.3 99.1 Pulse 83 100 94 87 Resp 34 43 26 45 B/P (MAP) 106/59 (75) 113/71 (85) 107/67 (80) Pulse Ox 97 97 97 97 09/02/20 09/02/20 09/02/20 09/02/20 08:01 08:04 08:07 08:10 Temp 99.1 99.3 99.1 99.1 Pulse 84 84 83 83 Resp 36 36 25 28 B/P (MAP) 105/57 (73) 99/60 (73) 103/62 (76) 101/51 (68) Pulse Ox 97 96 97 96 09/02/20 09/02/20 09/02/20 09/02/20 08:13 08:30 08:31 08:34 Temp 99.1 99.3 99.3 99.3 Pulse 84 84 83 82 Resp 24 B/P (MAP) 102/53 (69) 104/59 (74) 103/56 (72) Pulse Ox 96 96 96 96 1109/02/20 09/02/20 09/02/20 08:37 08:40 08:43 08:45 Temp 99.3 99.3 99.3 99.3 Pulse 80 84 84 83 Resp B/P (MAP) 97/54 (68) 103/54 (70) 97/58 (71) Pulse Ox 96 96 96 96 09/02/20 09/02/20 09/02/20 09/02/20 08:46 08:49 08:52 08:55 Temp 99.3 99.3 99.3 99.3 Pulse 82 83 83 84 Resp B/P (MAP) 97/55 (69) 97/55 (69) 100/58 (72) 96/59 (71) Pulse Ox 96 96 96 96 09/02/20 09/02/20 09/02/20 09/02/20 08:58 09:00 09:01 09:04 Temp 99.3 99.3 99.5 99.3 Pulse 83 90 95 98 Resp B/P (MAP) 102/57 (72) 130/76 (94) 133/81 (98) Pulse Ox 96 97 97 97 09/02/20 09/02/20 09/02/20 09/02/20 09:06 09:06 09:07 09:10 Temp 99.3 99.3 Pulse 99 98 99 95 Resp B/P (MAP) 135/76 (95) 136/79 (98) Pulse Ox 97 97 97 98 09/02/20 09/02/20 09/02/20 09/02/20 09:13 09:15 09:15 09:16 Temp 99.3 99.3 99.3 99.3 Pulse 85 102 102 84 Resp B/P (MAP) 145/91 (109) 131/78 (95) Pulse Ox 98 98 98 97 09/02/20 09/02/20 09/02/20 09/02/20 09:16 09:30 09:32 09:45 Temp 99.3 99.1 99.1 99.3 Pulse 84 82 84 80 Resp B/P (MAP) 131/78 (95) 114/63 (80) Pulse Ox 97 97 98 98 11/22/20 09/02/20 09/02/20 09/02/20 09:47 09:59 10:00 10:02 Temp 99.3 99.3 99.3 Pulse 79 83 81 80 Resp B/P (MAP) 114/62 (79) 110/61 (77) Pulse Ox 98 98 98 98 FiO2 100 09/02/20 09/02/20 09/02/20 09/02/20 10:15 10:15 10:17 10:17 Temp 99.3 99.3 99.3 99.3 Pulse 84 84 83 83 Resp B/P (MAP) 114/61 (78) 114/61 (78) Pulse Ox 97 97 98 98 09/02/20 09/02/20 09/02/20 09/02/20 10:30 10:30 10:32 10:45 Temp 99.3 99.3 99.3 Pulse 84 82 85 Resp B/P (MAP) 111/61 (78) Pulse Ox 97 97 97 FiO2 90 09/02/20 09/02/20 09/02/20 09/02/20 10:47 11:00 11:02 11:15 Temp 99.3 99.3 99.5 99.5 Pulse 84 89 87 91 Resp B/P (MAP) 108/60 (76) 111/61 (78) Pulse Ox 97 97 96 95 09/02/20 09/02/20 09/02/20 09/02/20 11:17 11:26 11:26 11:30 Temp 99.5 Pulse 87 80 80 Resp B/P (MAP) 111/67 (82) Pulse Ox 95 93 93 O2 Delivery Mechanical Ventilator FiO2 100 90 09/02/20 09/02/20 09/02/20 09/02/20 11:30 11:32 11:39 11:45 Temp 99.5 99.5 99.5 Pulse 83 85 90 85 Resp B/P (MAP) 118/68 (85) Pulse Ox 96 95 97 97 FiO2 90 09/02/20 09/02/20 09/02/20 09/02/20 11:45 11:47 11:47 12:00 Temp 99.5 99.5 99.5 99.5 Pulse 85 89 89 84 Resp B/P (MAP) 126/69 (88) 126/69 (88) Pulse Ox 97 96 96 97 09/02/20 09/02/20 09/02/20 09/02/20 12:02 12:15 12:17 12:30 Temp 99.5 99.5 99.5 99.3 Pulse 83 81 82 86 Resp B/P (MAP) 121/68 (85) 120/67 (84) Pulse Ox 97 97 97 96 09/02/20 09/02/20 09/02/20 09/02/20 12:32 12:45 12:47 13:00 Temp 99.3 99.3 99.3 99.3 Pulse 81 82 79 82 Resp B/P (MAP) 116/71 (86) 113/70 (84) Pulse Ox 96 96 96 96 09/02/20 09/02/20 09/02/20 09/02/20 13:02 13:47 14:00 14:02 Temp 99.3 99.3 99.3 99.5 Pulse 81 75 79 73 Resp B/P (MAP) 111/65 (80) 113/66 (82) 113/65 (81) Pulse Ox 95 97 97 96 09/02/20 09/02/20 09/02/20 09/02/20 14:11 14:15 14:17 14:30 Temp 99.5 99.5 99.5 Pulse 78 80 76 81 Resp B/P (MAP) 119/71 (87) Pulse Ox 98 96 97 95 FiO2 90 09/02/20 09/02/20 09/02/20 09/02/20 14:32 14:45 14:47 15:00 Temp 99.5 99.7 99.7 99.7 Pulse 79 77 78 87 Resp B/P (MAP) 112/67 (82) 115/68 (84) Pulse Ox 96 96 96 09/02/20 09/02/20 09/02/20 09/02/20 15:02 15:15 15:17 15:30 Temp 99.7 99.7 99.7 99.7 Pulse 66 69 67 76 Resp B/P (MAP) 119/67 (84) 119/70 (86) Pulse Ox 93 96 96 97 09/02/20 09/02/20 09/02/20 09/02/20 15:32 15:45 15:47 15:48 Temp 99.7 99.7 99.7 Pulse 76 76 80 78 Resp B/P (MAP) 115/69 (84) 116/67 (83) Pulse Ox 97 97 97 96 09/02/20 09/02/20 09/02/20 09/02/20 15:48 15:51 16:00 16:02 Temp 99.9 99.9 Pulse 78 77 76 77 Resp B/P (MAP) 113/70 (84) Pulse Ox 96 97 97 97 FiO2 90 09/02/20 09/02/20 09/02/20 09/02/20 16:15 16:17 16:26 16:26 Temp 99.9 99.9 Pulse 79 79 80 Resp 09 23 27 B/P (MAP) 113/68 (83) Pulse Ox 97 97 93 O2 Delivery Mechanical Ventilator FiO2 90 09/02/20 09/02/20 09/02/20 09/02/20 16:30 16:45 16:47 17:00 Temp 100.0 100.0 100.0 100.0 Pulse 82 80 78 78 Resp B/P (MAP) 115/65 (82) Pulse Ox 97 97 97 97 09/02/20 09/02/20 09/02/20 09/02/20 17:02 17:15 17:17 17:29 Temp 100.0 100.2 100.2 Pulse 75 74 75 69 Resp 04 22 22 B/P (MAP) 120/73 (89) 116/73 (87) Pulse Ox 97 97 97 98 FiO2 90 09/02/20 09/02/20 09/02/20 09/02/20 17:30 17:30 17:32 17:45 Temp 100.2 100.2 100.4 Pulse 69 74 69 71 Resp B/P (MAP) 118/73 (88) Pulse Ox 98 97 97 97 O2 Delivery Mechanical Ventilator FiO2 90 09/02/20 09/02/20 09/02/20 09/02/20 17:47 18:00 18:02 18:15 Temp 100.4 100.4 100.4 100.4 Pulse 70 68 68 72 Resp B/P (MAP) 118/70 (86) 117/72 (87) Pulse Ox 97 98 98 98 09/02/20 09/02/20 09/02/20 09/02/20 18:17 18:47 19:02 19:17 Temp 100.4 100.4 100.4 100.4 Pulse 68 63 63 61 Resp 14 B/P (MAP) 117/71 (86) 119/74 (89) 117/76 (90) 121/77 (92) Pulse Ox 98 97 97 97 09/02/20 09/02/20 09/02/20 09/02/20 19:32 19:47 20:00 20:00 Temp 100.4 100.6 Pulse 61 60 62 Resp B/P (MAP) 121/72 (88) 117/73 (88) Pulse Ox 97 97 99 O2 Delivery Mechanical Ventilator 09/02/20 09/02/20 09/02/20 09/02/20 20:00 20:00 20:00 20:02 Temp 100.6 Pulse 60 57 57 63 Resp B/P (MAP) 116/70 (85) Pulse Ox 96 98 98 98 FiO2 90 90 09/02/20 09/02/20 09/02/20 09/02/20 20:17 20:32 20:47 21:02 Temp 100.6 100.6 100.6 100.6 Pulse 59 59 60 59 Resp B/P (MAP) 120/72 (88) 116/71 (86) 117/71 (86) 117/73 (88) Pulse Ox 98 98 98 98 09/02/20 09/02/20 09/02/20 09/02/20 21:17 21:32 21:47 22:02 Temp 100.8 100.8 100.8 100.8 Pulse 58 59 61 58 Resp B/P (MAP) 122/73 (89) 117/69 (85) 116/72 (87) 117/72 (87) Pulse Ox 98 97 97 97 09/02/20 09/02/20 09/02/20 09/02/20 22:17 22:30 22:37 22:47 Temp 100.8 100.6 100.4 Pulse 55 68 81 60 Resp 22 22 18 22 B/P (MAP) 125/72 (89) 130/61 (84) 133/75 (94) Pulse Ox 98 96 75 97 FiO2 90 09/02/20 09/02/20 09/02/20 09/02/20 23:02 23:11 23:11 23:17 Temp 100.2 100.0 Pulse 65 68 63 Resp 22 B/P (MAP) 133/76 (95) 129/70 (89) Pulse Ox 100 96 100 O2 Delivery Mechanical Ventilator FiO2 90 09/02/20 09/02/20 09/03/20 09/03/20 23:32 23:47 00:02 00:17 Temp 100.0 100.0 100.0 100.0 Pulse 65 66 60 60 Resp 26 B/P (MAP) 120/62 (81) 112/66 (81) 118/69 (85) 118/74 (89) Pulse Ox 100 100 99 100 09/03/20 09/03/20 09/03/20 09/03/20 00:32 00:47 01:00 01:02 Temp 100.0 99.9 99.9 Pulse 59 59 62 58 Resp B/P (MAP) 117/72 (87) 116/66 (83) 118/66 (83) Pulse Ox 100 100 99 100 FiO2 90 09/03/20 09/03/20 09/03/20 09/03/20 01:17 01:32 02:02 02:17 Temp 99.9 99.9 99.9 99.9 Pulse 60 58 58 57 Resp B/P (MAP) 116/69 (85) 114/65 (81) 111/65 (80) 113/65 (81) Pulse Ox 100 100 99 100 09/03/20 09/03/20 09/03/20 09/03/20 02:32 02:47 03:00 03:00 Temp 99.9 99.9 Pulse 58 61 59 Resp B/P (MAP) 114/67 (83) 109/65 (80) Pulse Ox 100 99 100 O2 Delivery Mechanical Ventilator FiO2 90 09/03/20 09/03/20 09/03/20 09/03/20 03:00 03:00 03:00 03:02 Temp 99.9 Pulse 59 59 68 59 Resp 32 32 32 37 B/P (MAP) 130/72 (91) Pulse Ox 98 98 99 100 FiO2 90 09/03/20 09/03/20 09/03/20 09/03/20 03:18 03:48 04:02 04:17 Temp 99.5 Pulse 81 91 87 90 Resp 29 36 24 29 B/P (MAP) 125/76 (92) 93/58 (70) 107/67 (80) 112/69 (83) Pulse Ox 99 93 100 95 09/03/20 09/03/20 09/03/20 09/03/20 04:32 04:47 05:02 05:17 Pulse 63 59 66 61 Resp 27 24 26 26 B/P (MAP) 117/69 (85) 116/68 (84) 110/63 (79) 110/66 (81) Pulse Ox 100 100 100 100 09/03/20 09/03/20 09/03/20 09/03/20 05:32 05:47 05:50 05:50 Pulse 63 67 68 Resp 24 25 49 25 B/P (MAP) 119/60 (79) 108/66 (80) Pulse Ox 100 99 90 99 FiO2 90 09/03/20 09/03/20 09/03/20 09/03/20 06:02 06:17 08:00 08:00 Pulse 65 71 53 Resp 26 27 22 B/P (MAP) 110/65 (80) 106/66 (79) Pulse Ox 100 100 100 O2 Delivery Mechanical Ventilator FiO2 70 09/03/20 09/03/20 09/03/20 09/03/20 08:06 08:06 08:07 08:17 Pulse 61 61 61 61 Resp 26 26 25 25 Pulse Ox 98 98 98 98 O2 Delivery Mechanical Ventilator FiO2 90 90 09/03/20 09/03/20 09/03/20 09/03/20 10:21 12:00 12:00 13:50 Pulse 75 53 75 Resp 36 22 22 Pulse Ox 99 100 99 O2 Delivery Mechanical Ventilator FiO2 80 70 80 09/03/20 09/03/20 09/03/20 09/03/20 15:24 15:24 15:35 16:00 Pulse 58 75 58 53 Resp 31 22 31 22 Pulse Ox 99 99 99 100 FiO2 80 70 09/03/20 09/03/20 09/03/20 09/03/20 16:00 16:17 16:30 16:32 Temp 99.7 99.7 99.7 Pulse 63 57 60 Resp 50 48 82 B/P (MAP) 141/77 (98) 144/82 (102) Pulse Ox 99 100 99 O2 Delivery Mechanical Ventilator 09/03/20 09/03/20 09/03/20 09/03/20 16:45 16:47 17:00 17:02 Temp 99.7 99.7 99.7 99.7 Pulse 57 55 56 54 Resp 49 42 28 37 B/P (MAP) 145/79 (101) 143/79 (100) Pulse Ox 100 100 100 100 09/03/20 09/03/20 09/03/20 09/03/20 17:15 17:17 17:30 17:32 Temp 99.7 99.7 99.7 99.7 Pulse 70 65 57 60 Resp 30 B/P (MAP) 128/65 (86) 129/66 (87) Pulse Ox 99 100 100 100 09/03/20 09/03/20 09/03/20 09/03/20 17:45 17:47 17:52 18:00 Temp 99.5 99.5 99.5 Pulse 54 54 53 53 Resp 22 B/P (MAP) 123/67 (85) Pulse Ox 100 100 100 100 FiO2 80 09/03/20 09/03/20 09/03/20 09/03/20 18:02 18:06 18:15 18:17 Temp 99.5 99.5 99.7 99.7 Pulse 52 54 53 53 Resp B/P (MAP) 129/67 (87) 126/66 (86) 128/68 (88) Pulse Ox 100 100 100 100 09/03/20 09/03/20 09/03/20 09/03/20 18:21 19:21 19:21 19:21 Temp 99.7 100.0 Pulse 53 52 52 Resp B/P (MAP) 130/72 (91) 131/74 (93) Pulse Ox 100 100 100 O2 Delivery Mechanical Ventilator FiO2 70 09/03/20 09/03/20 09/03/20 09/03/20 19:36 19:51 20:00 20:00 Temp 100.0 100.0 Pulse 53 64 59 64 Resp 25 30 22 22 B/P (MAP) 126/72 (90) 125/68 (87) Pulse Ox 100 100 99 99 FiO2 70 09/03/20 09/03/20 09/03/20 09/03/20 20:00 20:00 20:06 20:21 Temp 99.9 100.0 Pulse 59 59 78 64 Resp 25 B/P (MAP) 128/90 (103) 136/60 (85) Pulse Ox 99 99 99 100 O2 Delivery Mechanical Ventilator FiO2 70 09/03/20 09/03/20 09/03/20 09/03/20 20:36 20:51 21:06 21:15 Temp 99.9 99.9 99.7 99.7 Pulse 54 59 69 62 Resp B/P (MAP) 123/62 (82) 126/74 (91) 117/63 (81) Pulse Ox 100 99 98 100 09/03/20 09/03/20 09/03/20 09/03/20 21:21 21:30 21:36 21:51 Temp 99.7 99.7 99.7 99.9 Pulse 62 63 61 58 Resp 18 B/P (MAP) 123/69 (87) 126/72 (90) 128/75 (92) Pulse Ox 100 100 100 100 09/03/20 09/03/20 09/03/20 09/03/20 22:06 22:06 22:21 22:36 Temp 99.9 99.9 99.9 Pulse 57 59 56 57 Resp 15 23 B/P (MAP) 128/70 (89) 133/73 (93) 135/82 (99) Pulse Ox 100 100 100 100 FiO2 70 09/03/20 09/03/20 09/03/20 09/03/20 22:51 23:03 23:03 23:06 Temp 100.0 100.0 Pulse 57 60 62 Resp 13 B/P (MAP) 133/74 (93) 125/71 (89) Pulse Ox 100 100 100 O2 Delivery Mechanical Ventilator FiO2 70 09/03/20 09/03/20 09/03/20 09/04/20 23:21 23:37 23:51 00:06 Temp 100.2 100.2 100.2 100.0 Pulse 75 93 75 65 Resp 9 63 22 24 B/P (MAP) 116/63 (80) 152/119 (130) 129/69 (89) 136/70 (92) Pulse Ox 100 88 100 100 09/04/20 09/04/20 09/04/20 09/04/20 00:21 00:36 00:51 01:00 Temp 100.0 100.2 100.2 Pulse 80 61 56 55 Resp 35 24 23 22 B/P (MAP) 136/69 (91) 128/71 (90) 131/72 (91) Pulse Ox 99 98 99 100 FiO2 70 09/04/20 09/04/20 09/04/20 09/04/20 01:06 01:21 01:36 01:51 Temp 100.4 100.4 100.4 100.4 Pulse 58 56 56 58 Resp 22 B/P (MAP) 131/75 (93) 132/72 (92) 130/76 (94) 127/73 (91) Pulse Ox 100 100 100 100 09/04/20 09/04/20 09/04/20 09/04/20 02:06 02:21 02:30 02:30 Temp 100.6 100.6 Pulse 68 64 64 64 Resp 18 20 25 25 B/P (MAP) 120/68 (85) 122/67 (85) Pulse Ox 100 100 99 99 FiO2 70 09/04/20 09/04/20 09/04/20 09/04/20 02:30 02:36 02:51 03:06 Temp 100.6 100.8 100.8 Pulse 64 60 66 65 Resp 20 25 19 B/P (MAP) 123/67 (85) 122/69 (86) 120/66 (84) Pulse Ox 100 100 99 100 09/04/20 09/04/20 09/04/20 09/04/20 03:11 03:11 03:21 03:36 Temp 100.8 100.6 Pulse 65 64 63 Resp 21 19 29 B/P (MAP) 126/67 (86) 121/67 (85) Pulse Ox 100 100 99 O2 Delivery Mechanical Ventilator FiO2 70 09/04/20 09/04/20 09/04/20 09/04/20 03:51 04:06 04:21 04:36 Temp 100.4 100.4 100.4 100.4 Pulse 56 55 56 72 Resp 25 8 25 33 B/P (MAP) 128/67 (87) 126/74 (91) 123/69 (87) 113/67 (82) Pulse Ox 99 100 100 97 09/04/20 09/04/20 09/04/20 09/04/20 04:43 04:51 05:06 05:21 Temp 100.2 100.4 100.2 Pulse 60 77 82 68 Resp 25 38 39 32 B/P (MAP) 113/63 (80) 116/71 (86) 112/58 (76) Pulse Ox 100 93 93 92 FiO2 70 09/04/20 09/04/20 09/04/20 09/04/20 05:36 05:51 06:00 06:06 Temp 100.2 100.2 100.2 Pulse 59 58 57 59 Resp 23 B/P (MAP) 121/66 (84) 119/72 (88) 115/66 (82) Pulse Ox 96 97 97 98 FiO2 70 09/04/20 09/04/20 09/04/20 09/04/20 06:21 06:36 08:00 08:00 Temp 100.4 100.4 Pulse 69 74 53 Resp 25 27 22 B/P (MAP) 110/63 (79) 110/60 (77) Pulse Ox 98 98 100 O2 Delivery Mechanical Ventilator FiO2 70 09/04/20 09/04/20 09/04/20 09/04/20 08:11 08:11 08:11 08:11 Pulse 66 74 66 66 Resp 25 25 Pulse Ox 94 98 94 94 O2 Delivery Mechanical Ventilator FiO2 70 70 09/04/20 09/04/20 09/04/20 09/04/20 10:11 10:26 10:33 10:41 Temp 100.0 100.4 100.4 Pulse 75 71 78 70 Resp 26 B/P (MAP) 101/58 111/60 103/60 Pulse Ox 98 FiO2 80 09/04/20 09/04/20 09/04/20 09/04/20 11:01 11:31 12:00 12:00 Temp 100.3 100.3 Pulse 79 67 53 Resp 28 22 B/P (MAP) 111/60 109/59 Pulse Ox 100 O2 Delivery Mechanical Ventilator FiO2 80 09/04/20 09/04/20 09/04/20 09/04/20 13:06 13:15 13:21 13:30 Temp 100.4 100.4 100.4 100.2 Pulse 72 76 73 69 Resp 54 42 25 27 B/P (MAP) 121/70 (87) 115/64 (81) Pulse Ox 98 97 97 95 09/04/20 09/04/20 09/04/20 09/04/20 13:36 13:45 13:51 14:00 Temp 100.0 100.0 100.0 100.0 Pulse 68 75 66 71 Resp 30 36 35 48 B/P (MAP) 117/61 (79) 120/72 (88) Pulse Ox 95 95 93 95 09/04/20 09/04/20 09/04/20 09/04/20 14:06 14:09 14:09 14:09 Temp 100.0 Pulse 67 105 105 105 Resp 88 35 35 35 B/P (MAP) 124/60 (81) Pulse Ox 94 94 94 94 FiO2 80 09/04/20 09/04/20 09/04/20 09/04/20 14:15 14:21 14:30 14:36 Temp 100.0 100.0 100.0 99.9 Pulse 67 60 74 62 Resp 28 B/P (MAP) 117/68 (84) 127/70 (89) Pulse Ox 91 92 92 93 09/04/20 09/04/20 09/04/20 09/04/20 14:45 14:51 15:00 15:06 Temp 99.9 99.9 99.7 99.7 Pulse 63 60 68 64 Resp 22 96 22 22 B/P (MAP) 121/66 (84) 122/68 (86) Pulse Ox 96 98 99 100 09/04/20 09/04/20 09/04/20 09/04/20 15:15 15:21 15:36 15:45 Temp 99.7 99.7 99.5 99.5 Pulse 61 59 57 57 Resp 22 22 22 22 B/P (MAP) 122/69 (86) 118/72 (87) Pulse Ox 100 100 100 100 09/04/20 09/04/20 09/04/20 09/04/20 15:51 16:00 16:00 16:00 Temp 99.5 99.5 Pulse 56 53 58 Resp 26 22 23 B/P (MAP) 117/68 (84) Pulse Ox 100 100 100 O2 Delivery Mechanical Ventilator FiO2 80 09/04/20 09/04/20 09/04/20 09/04/20 16:06 16:15 16:21 16:30 Temp 99.3 99.3 99.3 99.5 Pulse 68 77 80 73 Resp 27 26 33 37 B/P (MAP) 136/75 (95) 131/67 (88) Pulse Ox 99 97 96 96 09/04/20 09/04/20 09/04/20 09/04/20 16:36 16:45 16:45 16:51 Temp 99.5 99.5 99.5 Pulse 73 74 80 69 Resp 38 22 22 22 B/P (MAP) 132/76 (94) 119/68 (85) Pulse Ox 95 96 95 96 FiO2 80 09/04/20 09/04/20 09/04/20 09/04/20 17:00 17:06 17:15 17:21 Temp 99.5 99.5 99.5 99.5 Pulse 65 66 61 63 Resp 22 B/P (MAP) 121/72 (88) 119/71 (87) Pulse Ox 96 97 98 98 09/04/20 09/04/20 09/04/20 09/04/20 17:30 17:36 17:45 17:51 Temp 99.5 99.3 99.3 99.3 Pulse 59 57 56 55 Resp 22 22 22 B/P (MAP) 115/68 (84) 116/71 (86) Pulse Ox 99 99 99 99 09/04/20 09/04/20 09/04/20 09/04/20 19:00 19:00 19:06 19:21 Temp 98.6 98.6 Pulse 50 50 52 Resp 22 22 B/P (MAP) 120/68 (85) 127/67 (87) Pulse Ox 100 98 98 O2 Delivery Mechanical Ventilator FiO2 80 09/04/20 09/04/20 09/04/20 09/04/20 19:36 19:51 20:00 20:00 Temp 98.6 98.6 Pulse 50 52 50 50 Resp 22 22 22 B/P (MAP) 120/75 (90) 115/65 (82) Pulse Ox 99 99 98 98 O2 Delivery Mechanical Ventilator FiO2 80 80 09/04/20 09/04/20 09/04/2020 20:00 20:00 20:06 20:21 Temp 98.6 98.4 Pulse 50 50 53 51 Resp 22 B/P (MAP) 113/66 (82) 112/68 (83) Pulse Ox 98 98 98 98 09/04/20 09/04/20 09/04/20 09/04/20 20:36 20:51 21:06 21:21 Temp 98.4 98.2 98.2 98.1 Pulse 51 51 78 62 Resp 22 B/P (MAP) 110/63 (79) 109/66 (80) 112/71 (85) 105/60 (75) Pulse Ox 98 99 99 97 09/04/20 09/04/20 09/04/20 09/04/20 21:36 21:51 22:06 22:12 Temp 98.1 98.1 98.1 Pulse 68 63 61 54 Resp 22 B/P (MAP) 119/63 (81) 117/69 (85) 121/68 (85) Pulse Ox 96 92 92 99 FiO2 80 09/04/20 09/04/20 09/04/20 09/04/20 22:21 22:36 22:51 23:00 Temp 98.1 98.1 98.2 Pulse 62 63 60 60 Resp 23 B/P (MAP) 121/69 (86) 132/73 (92) 117/66 (83) Pulse Ox 92 97 97 100 FiO2 80 09/04/20 09/04/20 09/04/20 09/04/20 23:00 23:06 23:21 23:36 Temp 98.2 98.2 98.4 Pulse 59 57 57 Resp 22 B/P (MAP) 115/68 (84) 111/68 (82) 112/63 (79) Pulse Ox 97 98 98 O2 Delivery Mechanical Ventilator 09/04/20 09/05/20 09/05/20 09/05/20 23:51 00:06 00:21 00:36 Temp 98.4 98.2 98.2 98.2 Pulse 56 56 58 58 Resp 24 B/P (MAP) 107/64 (78) 111/66 (81) 111/62 (78) 108/61 (77) Pulse Ox 97 96 95 93 09/05/20 09/05/20 09/05/20 09/05/20 00:51 01:07 01:21 01:24 Temp 98.2 98.4 Pulse 57 81 99 84 Resp B/P (MAP) 108/68 (81) 106/59 (75) 105/67 (80) Pulse Ox 92 95 82 95 FiO2 80 09/05/20 09/05/20 09/05/20 09/05/20 01:36 01:51 02:06 02:21 Temp 98.6 99.0 99.1 Pulse 83 89 88 84 Resp B/P (MAP) 112/57 (75) 120/62 (81) 114/60 (78) 113/60 (77) Pulse Ox 93 92 92 91 09/05/20 09/05/20 09/05/20 09/05/20 02:36 02:51 03:00 03:00 Temp 99.3 99.5 Pulse 89 90 88 88 Resp B/P (MAP) 117/62 (80) 122/57 (78) Pulse Ox 91 90 92 92 FiO2 80 09/05/20 09/05/20 09/05/20 09/05/20 03:00 03:00 03:00 03:06 Temp 99.7 Pulse 80 88 85 Resp B/P (MAP) 130/71 (90) Pulse Ox 88 94 88 O2 Delivery Mechanical Ventilator FiO2 80 09/05/20 09/05/20 09/05/20 09/05/20 03:21 03:36 03:51 03:51 Temp 99.7 99.7 99.7 99.7 Pulse 87 108 87 87 Resp B/P (MAP) 115/65 (82) 122/68 (86) 115/67 (83) 115/67 (83) Pulse Ox 91 93 93 93 09/05/20 09/05/20 09/05/20 09/05/20 04:06 04:21 04:36 04:51 Temp 99.9 100.0 100.2 98.2 Pulse 88 93 91 91 Resp B/P (MAP) 116/64 (81) 117/62 (80) 116/67 (83) 121/68 (85) Pulse Ox 94 94 93 94 09/05/20 09/05/20 09/05/20 09/05/20 05:06 05:21 05:36 05:51 Temp 100.2 100.0 100.2 100.2 Pulse 90 98 98 89 Resp B/P (MAP) 120/72 (88) 124/73 (90) 127/72 (90) 125/66 (85) Pulse Ox 95 95 95 95 09/05/20 09/05/20 09/05/20 09/05/20 06:06 06:21 06:31 06:36 Temp 100.4 100.4 100.0 Pulse 91 93 97 95 Resp B/P (MAP) 128/68 (88) 123/71 (88) 125/69 (87) Pulse Ox 95 95 94 94 FiO2 80 09/05/20 09/05/20 09/05/20 09/05/20 06:51 07:00 07:06 07:15 Temp 100.4 100.4 100.4 100.4 Pulse 93 93 94 93 Resp B/P (MAP) 116/70 (85) 128/69 (88) Pulse Ox 95 95 95 95 09/05/20 09/05/20 09/05/20 09/05/20 07:21 07:30 07:36 07:45 Temp 100.4 100.4 100.4 100.4 Pulse 91 92 95 95 Resp B/P (MAP) 133/74 (93) 140/76 (97) Pulse Ox 95 95 95 94 09/05/20 09/05/20 09/05/20 09/05/20 07:51 08:00 08:00 08:06 Temp 100.6 100.6 100.6 Pulse 97 100 100 99 Resp B/P (MAP) 135/70 (91) 128/74 (92) Pulse Ox 94 93 94 94 FiO2 80 09/05/20 09/05/20 09/05/20 09/05/20 08:15 08:21 08:30 08:36 Temp 100.8 100.8 100.8 100.8 Pulse 109 125 113 105 Resp 36 57 36 32 B/P (MAP) 161/82 (108) 136/66 (89) Pulse Ox 93 83 91 91 11/09/05/20 09/05/20 09/05/20 08:45 08:51 09:00 09:00 Temp 100.8 100.8 Pulse 107 107 96 107 Resp 34 37 24 37 B/P (MAP) 126/72 (90) Pulse Ox 91 91 94 94 O2 Delivery Mechanical Ventilator FiO2 80 09/05/20 09/05/20 09/05/20 09/05/20 09:00 09:00 09:19 09:45 Pulse 96 96 Resp 24 24 Pulse Ox 94 94 O2 Delivery Mechanical Ventilator FiO2 80 90 09/05/20 09/05/20 09/05/20 09/05/20 10:36 10:45 10:51 11:00 Temp 100.9 100.9 100.9 100.9 Pulse 104 105 104 105 Resp 25 29 31 30 B/P (MAP) 146/74 (98) 141/75 (97) Pulse Ox 92 93 93 94 09/05/20 09/05/20 09/05/20 09/05/20 11:06 11:15 11:21 11:30 Temp 100.9 100.9 100.9 101.1 Pulse 104 107 106 119 Resp 29 30 32 33 B/P (MAP) 139/76 (97) 143/73 (96) Pulse Ox 94 93 93 93 09/05/20 09/05/20 09/05/20 09/05/20 11:36 11:45 11:51 12:00 Temp 101.1 101.1 101.1 Pulse 127 118 116 Resp 38 34 25 B/P (MAP) 129/77 (94) 135/72 (93) Pulse Ox 93 92 93 O2 Delivery Mechanical Ventilator 09/05/20 09/05/20 09/05/20 09/05/20 12:00 12:06 12:14 12:15 Temp 101.1 Pulse 110 107 105 Resp 34 37 24 B/P (MAP) 156/97 (116) Pulse Ox 94 83 94 92 FiO2 90 09/05/20 09/05/20 09/05/20 09/05/20 12:21 12:30 12:30 12:36 Pulse 103 109 99 101 Resp 64 39 32 27 B/P (MAP) 134/78 (96) 131/73 (92) Pulse Ox 84 92 93 FiO2 90 09/05/20 09/05/20 09/05/2020 12:45 12:51 13:00 13:06 Pulse 114 103 100 98 Resp 22 B/P (MAP) 133/75 (94) 131/73 (92) Pulse Ox 94 94 96 97 09/05/20 09/05/20 09/05/20 09/05/20 13:21 13:36 13:51 13:52 Pulse 93 95 95 107 Resp 22 B/P (MAP) 131/78 (95) 134/79 (97) 123/73 (90) Pulse Ox 97 97 98 97 FiO2 90 09/05/20 09/05/20 09/05/20 09/05/20 14:06 14:22 14:36 14:51 Temp 64.0 Pulse 88 76 75 Resp 25 B/P (MAP) 120/78 (92) 108/70 (83) 113/65 (81) 113/70 (84) Pulse Ox 97 85 93 94 09/05/20 09/05/20 09/05/20 09/05/20 15:00 15:06 15:06 15:15 Temp 99.7 99.7 99.7 99.5 Pulse 73 78 78 61 Resp 25 43 43 23 B/P (MAP) 113/74 (87) 113/74 (87) Pulse Ox 94 89 89 96 09/05/20 09/05/20 09/05/20 09/05/20 15:21 15:21 15:30 15:34 Temp 99.5 99.5 99.3 Pulse 59 59 60 67 Resp 22 23 B/P (MAP) 114/65 (81) 114/65 (81) Pulse Ox 97 97 98 94 09/05/20 09/05/20 09/05/20 09/05/20 15:35 15:36 15:36 15:45 Temp 99.3 99.3 Pulse 67 67 59 59 Resp 22 22 B/P (MAP) 114/70 (85) Pulse Ox 94 94 98 98 FiO2 90 09/05/20 09/05/20 09/05/20 09/05/20 15:51 16:00 16:00 16:06 Temp 99.3 99.3 99.3 Pulse 59 60 62 Resp 22 B/P (MAP) 115/70 (85) 120/75 (90) Pulse Ox 99 99 99 O2 Delivery Mechanical Ventilator 09/05/20 09/05/20 09/05/20 09/05/20 16:17 18:09 19:00 19:06 Temp 99.7 99.7 Pulse 99 67 64 65 Resp 32 22 B/P (MAP) 122/71 (88) Pulse Ox 92 89 93 93 FiO2 90 90 09/05/20 09/05/20 09/05/20 09/05/20 19:15 19:21 19:30 19:36 Temp 99.7 99.7 99.7 99.7 Pulse 66 66 65 64 Resp 22 27 B/P (MAP) 119/71 (87) 120/63 (82) Pulse Ox 92 91 91 89 09/05/20 09/05/20 09/05/20 09/05/20 19:45 19:51 20:00 20:00 Temp 99.5 99.5 99.5 Pulse 63 62 60 Resp 25 B/P (MAP) 119/74 (89) Pulse Ox 87 88 88 O2 Delivery Mechanical Ventilator 09/05/20 09/05/20 09/05/20 09/05/20 20:00 20:06 20:15 20:21 Temp 99.5 99.5 99.5 Pulse 59 57 57 59 Resp 22 B/P (MAP) 124/70 (88) 119/67 (84) Pulse Ox 91 89 89 90 FiO2 90 09/05/20 09/05/20 09/05/20 09/05/20 20:21 20:36 20:51 21:00 Temp 99.5 99.5 99.5 Pulse 59 59 61 63 Resp 22 22 B/P (MAP) 119/67 (84) 118/69 (85) 115/71 (86) Pulse Ox 90 92 92 92 FiO2 90 09/05/20 09/05/20 09/05/20 09/05/20 21:00 21:00 21:00 21:06 Temp 99.5 Pulse 63 63 66 61 Resp 22 B/P (MAP) 117/70 (86) Pulse Ox 92 92 90 92 O2 Delivery Mechanical Ventilator FiO2 90 09/05/20 09/05/20 09/05/20 09/05/20 21:21 21:36 21:51 22:06 Temp 99.5 99.5 99.3 99.3 Pulse 59 69 66 70 Resp 22 B/P (MAP) 115/64 (81) 108/58 (75) 112/59 (76) 107/60 (76) Pulse Ox 92 90 91 89 09/05/20 09/05/20 09/05/20 09/05/20 22:21 22:36 22:51 23:06 Temp 99.3 99.1 99.1 99.1 Pulse 67 69 66 66 Resp 23 B/P (MAP) 109/57 (74) 113/67 (82) 109/62 (78) 105/60 (75) Pulse Ox 88 86 91 91 09/05/20 09/05/20 09/05/20 09/06/20 23:21 23:36 23:51 00:00 Temp 99.1 99.1 99.1 Pulse 63 60 60 59 Resp B/P (MAP) 105/63 (77) 107/64 (78) 110/63 (79) Pulse Ox 92 92 92 91 FiO2 90 09/06/20 09/06/20 09/06/20 09/06/20 00:00 00:06 00:21 00:21 Temp 99.1 99.1 99.1 Pulse 58 59 59 Resp 23 B/P (MAP) 113/70 (84) 114/69 (84) 114/69 (84) Pulse Ox 92 90 90 O2 Delivery Mechanical Ventilator 09/06/20 09/06/20 09/06/20 09/06/20 00:36 00:51 01:06 01:20 Temp 99.1 99.1 99.1 Pulse 60 58 59 58 Resp 22 B/P (MAP) 115/67 (83) 114/64 (81) 111/65 (80) Pulse Ox 89 90 91 91 FiO2 90 09/06/20 09/06/20 09/06/20 09/06/20 01:21 01:36 01:51 02:06 Temp 99.3 99.3 99.3 99.3 Pulse 62 59 59 59 Resp 22 B/P (MAP) 107/61 (76) 108/57 (74) 108/65 (79) 105/61 (76) Pulse Ox 90 91 91 91 09/06/20 09/06/20 09/06/20 09/06/20 02:21 02:36 02:51 03:00 Temp 99.3 99.3 99.3 Pulse 60 59 59 56 Resp 22 22 10 22 B/P (MAP) 109/59 (76) Pulse Ox 90 89 89 90 09/06/20 09/06/20 09/06/20 09/06/20 03:00 03:06 04:00 04:00 Temp 99.3 Pulse 57 68 60 Resp 22 23 22 Pulse Ox 90 78 90 O2 Delivery Mechanical Ventilator FiO2 90 09/06/20 09/06/20 09/06/20 09/06/20 04:48 07:00 07:30 08:00 Temp 98.4 98.6 98.8 Pulse 56 53 56 72 Resp 22 22 B/P (MAP) 116/66 (83) 115/65 (82) 101/58 (72) Pulse Ox 90 91 91 74 FiO2 90 09/06/20 09/06/20 09/06/20 09/06/20 08:00 08:00 08:14 08:15 Temp 99.0 99.0 Pulse 60 95 84 Resp 28 18 B/P (MAP) 126/70 (88) Pulse Ox 90 79 85 O2 Delivery Mechanical Ventilator FiO2 100 09/06/20 09/06/20 09/06/20 09/06/20 08:30 09:00 09:15 09:21 Temp 99.3 100.2 100.4 Pulse 86 91 55 Resp 22 32 22 B/P (MAP) 134/62 (86) 135/62 (86) 144/68 (93) Pulse Ox 83 84 73 91 09/06/20 09/06/20 09/06/20 09/06/20 09:25 09:31 09:32 09:47 Pulse 55 55 55 55 Resp 22 22 22 22 Pulse Ox 91 91 91 91 O2 Delivery Mechanical Ventilator FiO2 90 100 09/06/20 09/06/20 09/06/20 09/06/20 10:00 10:01 10:14 10:15 Pulse 84 78 78 78 Resp 22 21 22 22 B/P (MAP) 93/51 (65) 88/49 (62) 103/54 (70) Pulse Ox 88 88 91 91 09/06/20 09/06/20 09/06/2026/20 10:29 10:30 11:00 11:15 Pulse 80 80 83 80 Resp 23 22 22 22 B/P (MAP) 112/59 (76) 126/68 (87) Pulse Ox 93 93 95 95 09/06/20 09/06/20 09/06/20 09/06/20 11:21 11:30 12:00 12:00 Pulse 87 84 60 Resp 22 22 22 B/P (MAP) 126/67 (86) Pulse Ox 95 96 90 O2 Delivery Mechanical Ventilator FiO2 100 100 09/06/20 09/06/20 09/06/20 09/06/20 12:00 12:30 12:45 12:59 Temp 101.3 101.1 Pulse 87 73 77 77 Resp 22 23 22 22 B/P (MAP) 102/54 (70) 94/53 (67) 97/57 (70) Pulse Ox 97 96 96 96 09/06/20 09/06/20 09/06/20 09/06/20 13:00 13:14 13:15 13:29 Temp 101.1 100.9 100.9 100.8 Pulse 76 70 70 69 Resp 22 22 22 23 B/P (MAP) 99/59 (72) 99/58 (72) Pulse Ox 97 97 98 98 09/06/20 09/06/20 09/06/20 09/06/20 13:30 14:00 15:41 15:42 Temp 100.8 100.6 Pulse 67 64 61 61 Resp 22 22 22 22 B/P (MAP) 125/66 (85) Pulse Ox 99 99 99 99 FiO2 100 09/06/20 09/06/20 09/06/20 09/06/20 15:44 15:44 16:00 19:00 Temp 99.5 Pulse 61 61 60 53 Resp 22 22 22 22 Pulse Ox 99 99 90 100 O2 Delivery Mechanical Ventilator FiO2 100 100 09/06/20 09/06/20 09/06/20 09/06/20 19:14 19:15 19:30 19:30 Temp 99.3 99.3 Pulse 61 63 69 67 Resp 23 25 22 22 B/P (MAP) 111/59 (76) Pulse Ox 98 100 99 97 FiO2 100 09/06/20 09/06/20 09/06/20 09/06/20 19:30 19:30 19:44 19:45 Temp 99.3 99.5 99.5 Pulse 69 67 67 69 Resp B/P (MAP) 102/47 (65) 104/59 (74) Pulse Ox 99 97 98 99 09/06/20 09/06/20 09/06/20 09/06/20 19:59 20:00 20:00 20:00 Temp 99.7 99.7 Pulse 86 60 80 Resp B/P (MAP) 107/62 (77) Pulse Ox 88 90 95 O2 Delivery Mechanical Ventilator FiO2 100 09/06/20 09/06/20 09/06/20 09/06/20 20:14 20:15 21:59 22:00 Temp 99.7 99.7 99.5 99.5 Pulse 70 71 56 57 Resp B/P (MAP) 114/61 (78) 99/55 (70) Pulse Ox 100 100 100 100 09/06/20 09/06/20 09/06/20 09/06/20 22:14 22:15 22:29 22:30 Temp 99.3 99.3 99.3 99.3 Pulse 56 56 54 53 Resp 22 B/P (MAP) 104/51 (68) 100/57 (71) Pulse Ox 100 100 100 100 09/06/20 09/06/20 09/06/20 09/06/20 22:44 22:45 22:59 23:00 Temp 99.3 99.3 99.3 99.3 Pulse 54 52 52 52 Resp B/P (MAP) 101/56 (71) 104/58 (73) Pulse Ox 100 100 100 100 09/06/20 09/06/20 09/06/20 09/06/20 23:01 23:14 23:15 23:29 Temp 99.3 99.3 99.3 Pulse 55 52 52 54 Resp 18 23 B/P (MAP) 103/56 (72) 117/67 (84) Pulse Ox 100 100 100 100 FiO2 100 09/06/20 09/06/20 09/06/20 09/07/20 23:30 23:45 23:59 00:00 Temp 99.3 99.3 99.3 Pulse 54 61 66 Resp B/P (MAP) 101/54 (70) 110/55 (73) Pulse Ox 100 100 100 O2 Delivery Mechanical Ventilator 09/07/20 09/07/20 09/07/20 09/07/20 00:00 00:00 00:14 00:15 Temp 99.3 99.5 99.5 Pulse 60 65 59 61 Resp B/P (MAP) 104/55 (71) Pulse Ox 90 100 100 100 FiO2 100 09/07/20 09/07/20 09/07/20 09/07/20 01:45 01:58 02:00 02:09 Temp 99.5 99.5 Pulse 79 79 56 Resp B/P (MAP) 139/73 (95) Pulse Ox 100 90 100 FiO2 100 09/07/20 09/07/20 09/07/20 09/07/20 02:13 02:15 02:28 02:30 Temp 99.5 99.5 99.5 99.5 Pulse 83 82 73 70 Resp B/P (MAP) 131/64 (86) 123/64 (83) Pulse Ox 92 92 94 94 09/07/20 09/07/20 09/07/20 09/07/20 02:43 02:45 02:53 02:58 Temp 99.5 99.5 99.7 Pulse 73 70 69 Resp B/P (MAP) 114/68 (83) 116/65 (82) Pulse Ox 95 95 93 94 09/07/20 09/07/20 09/07/20 09/07/20 03:00 03:14 03:15 03:29 Temp 99.7 99.7 99.7 99.7 Pulse 70 64 66 75 Resp Pulse Ox 94 94 94 92 09/07/20 09/07/20 09/07/20 09/07/20 03:30 03:43 03:45 03:58 Temp 99.7 99.7 99.7 99.7 Pulse 74 74 74 83 Resp 22 B/P (MAP) 114/63 (80) 100/61 (74) Pulse Ox 93 93 92 96 09/07/20 09/07/20 09/07/20 09/07/20 04:00 04:00 04:00 05:04 Temp 99.7 Pulse 76 60 71 Resp 22 22 22 Pulse Ox 96 90 92 O2 Delivery Mechanical Ventilator FiO2 100 09/07/20 09/07/20 09/07/20 09/07/20 05:04 05:04 07:00 07:13 Temp 100.0 100.0 Pulse 73 71 63 62 Resp 22 22 22 22 B/P (MAP) 100/59 (73) Pulse Ox 97 92 98 98 FiO2 100 09/07/20 09/07/20 09/07/20 09/07/20 07:15 07:28 07:28 07:43 Temp 100.0 100.0 100.0 100.0 Pulse 63 61 61 61 Resp 22 23 B/P (MAP) 107/67 (80) 107/67 (80) 101/62 (75) Pulse Ox 98 97 97 99 09/07/20 09/07/20 09/07/20 09/07/20 07:58 08:00 08:13 08:28 Temp 100.2 100.2 100.2 Pulse 67 24 89 102 Resp 29 B/P (MAP) 102/57 (72) 109/63 (78) 132/69 (90) Pulse Ox 98 92 97 79 FiO2 100 09/07/20 09/07/20 09/07/20 09/07/20 08:43 08:45 08:45 08:45 Pulse 91 86 86 86 Resp 29 29 B/P (MAP) 117/63 (81) Pulse Ox 91 100 97 97 FiO2 100 09/07/20 09/07/20 09/07/20 09/07/20 08:45 08:58 09:13 09:28 Pulse 86 87 85 85 Resp 32 22 22 B/P (MAP) 108/64 (79) 110/58 (75) 97/54 (68) Pulse Ox 97 94 97 97 O2 Delivery Mechanical Ventilator FiO2 100 09/07/20 09/07/20 09/07/20 09/07/20 09:30 09:43 09:44 09:45 Pulse 81 85 86 Resp 22 22 22 B/P (MAP) 105/54 (71) Pulse Ox 97 97 97 O2 Delivery Mechanical Ventilator 09/07/20 09/07/20 09/07/20 09/07/20 09:58 10:00 10:13 10:15 Pulse 86 89 91 92 Resp 22 22 24 24 B/P (MAP) 101/49 (66) 115/53 (73) Pulse Ox 98 97 98 98 09/07/20 09/07/20 09/07/20 09/07/20 10:29 10:30 10:35 10:43 Pulse 86 85 83 79 Resp B/P (MAP) 99/45 (63) 92/40 (57) Pulse Ox 93 93 93 92 09/07/20 09/07/20 09/07/20 09/07/20 10:45 10:59 11:00 11:13 Temp 100.4 100.4 Pulse 79 71 77 Resp B/P (MAP) 121/53 (75) 108/60 (76) Pulse Ox 93 90 90 92 09/07/20 09/07/20 09/07/20 09/07/20 11:15 11:28 11:43 11:45 Temp 100.4 100.4 100.4 100.4 Pulse 78 76 65 66 Resp B/P (MAP) 107/56 (73) 104/59 (74) Pulse Ox 92 92 94 94 09/07/20 09/07/20 09/07/20 09/07/20 11:58 12:00 12:10 12:12 Temp 100.4 100.4 Pulse 62 61 61 Resp B/P (MAP) 105/59 (74) Pulse Ox 95 96 96 O2 Delivery Mechanical Ventilator FiO2 100 09/07/20 09/07/20 09/07/20 09/07/20 12:13 12:15 12:28 12:30 Temp 100.4 100.4 100.2 100.2 Pulse 60 59 61 61 Resp B/P (MAP) 104/62 (76) 107/62 (77) Pulse Ox 97 97 97 97 09/07/20 09/07/20 09/07/20 09/07/20 12:43 12:45 12:58 13:00 Temp 100.2 100.2 100.2 100.2 Pulse 58 58 56 56 Resp B/P (MAP) 108/59 (75) 107/64 (78) Pulse Ox 98 98 99 99 09/07/20 09/07/20 09/07/20 09/07/20 13:13 13:15 13:24 13:28 Temp 100.0 100.0 100.0 Pulse 57 56 66 58 Resp 22 B/P (MAP) 103/62 (76) 104/63 (77) Pulse Ox 98 98 93 97 FiO2 100 09/07/20 09/07/20 09/07/20 09/07/20 13:30 13:43 13:45 13:58 Temp 100.0 100.0 100.0 99.9 Pulse 57 56 58 56 Resp 22 B/P (MAP) 107/62 (77) 107/62 (77) Pulse Ox 98 98 98 98 09/07/20 09/07/20 09/07/20 09/07/20 14:00 14:13 14:15 14:28 Temp 99.9 99.9 99.9 99.9 Pulse 56 55 55 55 Resp B/P (MAP) 104/64 (77) 104/61 (75) Pulse Ox 98 98 97 97 09/07/20 09/07/20 09/07/20 09/07/20 14:30 14:45 14:59 15:00 Temp 99.9 99.7 99.7 99.7 Pulse 55 55 54 55 Resp B/P (MAP) 102/64 (77) Pulse Ox 97 97 97 97 09/07/20 09/07/20 09/07/20 09/07/20 15:15 15:29 15:30 15:45 Temp 99.7 99.7 99.7 99.5 Pulse 55 54 54 54 Resp B/P (MAP) 108/64 (79) Pulse Ox 97 98 98 97 09/07/20 09/07/20 09/07/20 09/07/20 15:59 16:00 16:15 16:19 Temp 99.5 99.5 99.5 Pulse 53 55 53 55 Resp 23 B/P (MAP) 104/62 (76) Pulse Ox 97 97 97 97 09/07/20 09/07/20 09/07/20 09/07/20 16:19 16:19 16:29 16:30 Temp 99.3 99.3 Pulse 55 55 52 53 Resp 22 B/P (MAP) 100/58 (72) Pulse Ox 97 97 96 97 FiO2 100 09/07/20 09/07/20 09/07/20 09/07/20 16:30 16:40 16:45 16:59 Temp 99.3 99.3 99.3 Pulse 53 55 55 52 Resp B/P (MAP) 106/61 (76) Pulse Ox 97 97 97 95 FiO2 100 09/07/20 09/07/20 09/07/20 09/07/20 17:00 17:15 17:29 17:30 Temp 99.3 99.1 99.1 99.1 Pulse 53 71 57 57 Resp B/P (MAP) 108/58 (75) Pulse Ox 94 85 96 97 09/07/20 09/07/20 09/07/20 09/07/20 17:37 17:45 17:59 18:00 Temp 99.1 99.1 99.1 Pulse 57 54 54 Resp B/P (MAP) 103/60 (74) Pulse Ox 98 97 98 O2 Delivery Mechanical Ventilator 09/07/20 09/07/20 09/07/20 09/07/20 19:00 19:15 19:29 19:30 Temp 99.0 99.0 99.0 99.0 Pulse 51 52 55 53 Resp B/P (MAP) 119/68 (85) Pulse Ox 98 98 96 95 09/07/20 09/07/20 09/07/20 09/07/20 19:45 20:00 20:00 20:00 Temp 99.0 99.0 Pulse 60 53 60 Resp Pulse Ox 93 95 90 O2 Delivery Mechanical Ventilator FiO2 100 09/07/20 09/07/20 09/07/20 09/07/20 20:15 20:15 20:23 20:29 Temp 99.0 99.0 99.0 Pulse 53 52 54 57 Resp B/P (MAP) 110/62 (78) 108/58 (75) Pulse Ox 95 95 98 99 O2 Delivery Mechanical Ventilator FiO2 100 09/07/20 09/07/20 09/07/20 09/07/20 20:30 20:59 21:02 21:02 Temp 99.0 Pulse 58 52 56 52 Resp Pulse Ox 99 95 95 95 FiO2 100 11/2709/07/20 09/07/20 09/07/20 22:30 22:45 22:59 23:00 Temp 99.0 99.1 99.1 99.1 Pulse 56 57 57 55 Resp 23 B/P (MAP) 113/60 (77) Pulse Ox 96 97 97 97 09/07/20 09/07/20 09/07/20 09/07/20 23:15 23:29 23:30 23:45 Temp 99.1 99.1 99.1 99.3 Pulse 58 57 57 58 Resp 23 B/P (MAP) 119/65 (83) Pulse Ox 97 96 96 97 09/07/20 09/07/20 09/08/20 09/08/20 23:58 23:59 00:00 00:00 Temp 99.3 99.3 Pulse 61 60 59 Resp B/P (MAP) 113/61 (78) Pulse Ox 96 97 97 O2 Delivery Mechanical Ventilator FiO2 100 09/08/20 09/08/20 09/08/20 09/08/20 00:00 00:15 00:29 00:30 Temp 99.3 99.3 99.3 Pulse 60 62 68 63 Resp 22 B/P (MAP) 128/65 (86) Pulse Ox 90 97 97 96 FiO2 100 09/08/20 09/08/20 09/08/20 09/08/20 00:45 00:59 01:00 01:15 Temp 99.3 99.5 99.5 99.7 Pulse 68 75 74 70 Resp B/P (MAP) 133/70 (91) Pulse Ox 97 99 99 97 09/08/20 09/08/20 09/08/20 09/08/20 01:29 01:30 02:00 02:15 Temp 99.7 99.7 99.9 99.9 Pulse 68 70 65 60 Resp 17 B/P (MAP) 117/62 (80) Pulse Ox 95 97 94 95 09/08/20 09/08/20 09/08/20 09/08/20 02:30 02:45 03:00 03:13 Temp 99.9 99.7 99.0 99.9 Pulse 63 58 Resp 56 23 B/P (MAP) 147/68 (94) Pulse Ox 94 96 97 93 09/08/20 09/08/20 09/08/20 09/08/20 03:15 03:20 03:30 03:43 Temp 99.9 99.9 99.7 Pulse 82 61 83 74 Resp B/P (MAP) 142/78 (99) Pulse Ox 98 96 93 92 09/08/20 09/08/20 09/08/20 09/08/20 03:45 03:45 04:00 04:00 Temp 99.7 99.7 Pulse 63 78 66 60 Resp Pulse Ox 97 92 97 90 FiO2 100 09/08/20 09/08/20 09/08/20 09/08/20 04:00 04:13 04:15 04:30 Temp 99.9 99.9 99.7 Pulse 56 57 54 Resp B/P (MAP) 131/75 (93) Pulse Ox 97 98 99 O2 Delivery Mechanical Ventilator 09/08/20 09/08/20 09/08/20 09/08/20 04:42 04:45 04:57 05:00 Temp 99.9 99.9 99.9 Pulse 53 52 62 53 Resp B/P (MAP) 124/75 (91) Pulse Ox 99 99 97 99 FiO2 100 09/08/20 09/08/20 09/08/20 09/08/20 05:12 05:15 07:00 07:12 Temp 99.9 99.9 99.9 99.9 Pulse 54 54 58 59 Resp B/P (MAP) 119/75 (90) 126/73 (90) Pulse Ox 100 100 98 98 09/08/20 09/08/20 09/08/20 09/08/20 07:30 07:30 07:42 07:45 Temp 100.0 100.0 100.0 Pulse 60 58 63 60 Resp B/P (MAP) 125/69 (87) Pulse Ox 99 98 99 99 FiO2 100 09/08/20 09/08/20 09/08/20 09/08/20 08:00 08:00 08:12 08:15 Temp 100.0 100.0 100.0 Pulse 65 63 67 Resp B/P (MAP) 131/71 (91) Pulse Ox 98 98 99 O2 Delivery Mechanical Ventilator 09/08/20 09/08/20 09/08/20 09/08/20 08:30 08:42 08:45 08:46 Temp 100.0 100.2 100.2 Pulse 86 68 68 59 Resp 30 29 23 B/P (MAP) 139/86 (103) Pulse Ox 95 95 95 98 09/08/20 09/08/20 09/08/20 09/08/20 08:47 08:48 08:49 09:00 Temp 100.2 Pulse 59 59 59 70 Resp 28 Pulse Ox 98 98 98 93 O2 Delivery Mechanical Ventilator FiO2 100 100 09/08/20 09/08/20 09/08/20 09/08/20 09:12 09:15 09:30 09:42 Temp 100.2 100.2 100.4 100.4 Pulse 65 74 81 86 Resp 32 31 34 B/P (MAP) 136/74 (94) 137/66 (89) Pulse Ox 93 94 94 92 09/08/20 09/08/20 09/08/20 09/08/20 09:45 10:00 10:12 10:15 Temp 100.4 100.6 100.6 100.6 Pulse 90 76 77 77 Resp 34 36 33 38 B/P (MAP) 124/60 (81) Pulse Ox 92 92 93 92 09/08/20 09/08/20 09/08/20 09/08/20 10:30 10:42 10:42 10:45 Temp 100.6 100.6 100.6 100.6 Pulse 81 73 73 66 Resp 34 22 22 22 B/P (MAP) 123/67 (85) 123/67 (85) Pulse Ox 93 96 96 96 09/08/20 09/08/20 09/08/20 09/08/20 10:57 11:12 11:32 11:42 Temp 100.4 100.4 100.4 100.4 Pulse 60 61 73 68 Resp 22 22 22 23 B/P (MAP) 120/65 (83) 124/63 (83) Pulse Ox 97 98 89 89 09/08/20 09/08/20 09/08/20 09/08/20 11:43 11:44 11:57 12:01 Temp 100.4 100.4 Pulse 70 65 59 Resp 25 22 22 B/P (MAP) 124/64 (84) 124/64 Pulse Ox 90 89 90 FiO2 100 09/08/20 09/08/20 09/08/20 09/08/20 12:01 12:09 12:12 12:42 Temp 100.4 100.4 Pulse 75 52 59 Resp 22 23 B/P (MAP) 138/75 (96) Pulse Ox 93 91 90 O2 Delivery Mechanical Ventilator FiO2 100 09/08/20 09/08/20 09/08/20 09/08/20 12:43 13:12 13:42 14:12 Temp 100.4 100.4 100.4 100.2 Pulse 58 57 58 52 Resp 30 29 B/P (MAP) 120/66 (84) 113/68 (83) 126/72 (90) 135/75 (95) Pulse Ox 93 93 93 95 09/08/20 09/08/20 09/08/20 09/08/20 14:42 14:43 14:43 15:13 Temp 100.0 100.0 100.0 99.9 Pulse 58 57 57 55 Resp 22 B/P (MAP) 129/62 (84) 129/62 (84) 118/67 (84) Pulse Ox 97 97 93 09/08/20 09/08/20 09/08/20 09/08/20 15:14 15:16 15:16 15:43 Temp 99.9 Pulse 56 56 56 53 Resp 22 B/P (MAP) 122/65 (84) Pulse Ox 93 93 93 91 FiO2 100 09/08/20 09/08/20 09/08/20 09/08/20 16:05 16:12 16:25 16:43 Temp 99.7 99.7 Pulse 51 50 51 Resp 22 B/P (MAP) 129/72 (91) 129/65 (86) Pulse Ox 93 92 94 O2 Delivery Mechanical Ventilator FiO2 100 09/08/20 09/08/20 09/08/20 09/08/20 17:13 17:43 17:43 17:58 Temp 99.5 99.3 99.3 99.3 Pulse 50 51 51 52 Resp 22 B/P (MAP) 128/67 (87) 117/65 (82) 117/65 (82) Pulse Ox 93 93 93 92 1109/08/20 09/08/20 09/08/20 18:12 18:13 18:28 18:42 Temp 99.1 99.1 99.1 99.0 Pulse 51 51 51 51 Resp 22 B/P (MAP) 115/63 (80) 113/64 (80) Pulse Ox 91 91 92 90 09/08/20 09/08/20 09/08/20 09/08/20 18:43 20:00 20:00 20:57 Temp 99.0 Pulse 51 60 48 Resp 22 22 22 Pulse Ox 91 90 99 O2 Delivery Mechanical Ventilator FiO2 100 100 09/08/20 09/08/20 09/08/20 09/08/20 20:58 20:59 20:59 22:15 Temp 98.2 Pulse 48 50 48 50 Resp 23 Pulse Ox 99 99 99 99 O2 Delivery Mechanical Ventilator FiO2 100 09/08/20 09/08/20 09/08/20 09/08/20 22:30 22:42 22:45 23:00 Temp 98.2 98.2 98.2 98.4 Pulse 58 59 58 56 Resp 23 B/P (MAP) 113/55 (74) Pulse Ox 99 100 99 98 09/08/20 09/08/20 09/08/20 09/08/20 23:12 23:15 23:30 23:38 Temp 98.4 98.6 98.6 Pulse 60 64 71 68 Resp B/P (MAP) 118/56 (76) Pulse Ox 98 98 99 100 FiO2 100 09/08/20 09/08/20 09/09/20 09/09/20 23:42 23:45 00:00 00:00 Temp 98.8 98.8 99.0 Pulse 77 71 75 Resp 22 B/P (MAP) 126/64 (84) Pulse Ox 98 98 98 O2 Delivery Mechanical Ventilator 09/09/20 09/09/20 09/09/20 09/09/20 00:00 00:13 00:15 00:30 Temp 99.0 99.0 99.1 Pulse 60 76 73 71 Resp 22 B/P (MAP) 128/62 (84) Pulse Ox 90 99 98 98 FiO2 100 09/09/20 09/09/20 09/09/20 09/09/20 00:43 00:45 01:00 01:12 Temp 99.1 99.1 99.3 99.3 Pulse 73 69 70 70 Resp 22 B/P (MAP) 122/52 (75) 120/57 (78) Pulse Ox 99 99 98 98 09/09/20 09/09/20 09/09/20 09/09/20 01:15 01:43 01:45 02:00 Temp 99.3 99.5 99.5 99.7 Pulse 69 66 66 59 Resp 21 B/P (MAP) 116/56 (76) Pulse Ox 97 97 96 97 09/09/20 09/09/20 09/09/20 09/09/20 02:12 02:15 02:30 02:42 Temp 99.7 99.7 99.9 99.9 Pulse 63 65 71 62 Resp 38 22 B/P (MAP) 116/56 (76) 107/50 (69) Pulse Ox 98 98 94 99 09/09/20 09/09/20 09/09/20 09/09/20 02:45 03:00 03:15 03:30 Temp 99.9 100.0 Pulse 62 57 Resp Pulse Ox 98 99 99 94 09/09/20 09/09/20 09/09/20 09/09/20 03:37 03:45 04:00 04:00 Temp 100.0 100.0 99.9 Pulse 74 75 75 60 Resp B/P (MAP) 158/70 (99) Pulse Ox 89 94 95 90 FiO2 100 09/09/20 09/09/20 09/09/20 09/09/20 04:00 04:00 04:00 04:00 Pulse 67 68 67 Resp 22 Pulse Ox 97 99 97 O2 Delivery Mechanical Ventilator FiO2 100 09/09/20 09/09/20 09/09/20 09/09/20 04:07 04:15 04:30 04:37 Temp 99.9 99.9 99.9 99.9 Pulse 76 70 74 74 Resp 22 B/P (MAP) 143/72 (95) 130/64 (86) Pulse Ox 95 95 95 96 09/09/20 09/09/20 09/09/20 09/09/20 04:45 05:00 05:07 05:15 Temp 99.9 99.9 99.9 99.9 Pulse 72 63 70 76 Resp 24 B/P (MAP) 128/72 (90) Pulse Ox 95 96 94 96 09/09/20 09/09/20 09/09/20 09/09/20 05:30 05:35 05:37 05:45 Temp 99.9 99.9 99.9 Pulse 92 92 91 Resp B/P (MAP) 151/75 (100) Pulse Ox 95 99 95 93 09/09/20 09/09/20 09/09/20 09/09/20 06:00 06:07 06:15 06:30 Temp 100.0 100.0 100.2 100.4 Pulse 86 91 96 93 Resp B/P (MAP) 148/77 (100) Pulse Ox 92 91 94 93 09/09/20 09/09/20 09/09/20 09/09/20 07:00 07:07 07:15 07:30 Temp 100.6 100.8 100.8 100.8 Pulse 97 95 94 102 Resp B/P (MAP) 157/64 (95) Pulse Ox 94 94 94 93 09/09/20 09/09/20 09/09/20 09/09/20 08:00 08:00 08:07 08:15 Temp 100.9 100.9 100.9 Pulse 101 60 97 97 Resp 32 B/P (MAP) 127/65 (85) Pulse Ox 91 90 92 91 FiO2 100 09/09/20 09/09/20 09/09/20 09/09/20 08:30 08:38 08:50 08:50 Temp 100.9 Pulse 92 60 94 Resp 32 33 33 Pulse Ox 93 93 93 O2 Delivery Mechanical Ventilator FiO2 100 09/09/20 09/09/20 09/09/20 09/09/20 08:50 08:50 09:00 09:07 Temp 100.9 100.9 Pulse 94 60 96 96 Resp 33 33 32 34 B/P (MAP) 135/69 (91) Pulse Ox 93 93 93 92 FiO2 100 09/09/20 09/09/20 09/09/20 09/09/20 09:15 09:30 10:00 10:07 Temp 100.9 100.9 100.4 100.4 Pulse 97 94 74 73 Resp 22 B/P (MAP) 119/64 (82) Pulse Ox 94 87 93 93 09/09/20 09/09/20 09/09/20 09/09/20 10:15 10:30 11:00 11:07 Temp 100.2 100.4 100.4 100.6 Pulse 84 92 95 97 Resp 22 B/P (MAP) 148/76 (100) Pulse Ox 92 92 89 90 09/09/20 09/09/20 09/09/20 09/09/20 11:15 11:30 12:00 12:00 Temp 100.6 100.8 Pulse 98 100 60 Resp Pulse Ox 90 90 90 O2 Delivery Mechanical Ventilator FiO2 100 09/09/20 09/09/20 09/09/20 09/09/20 12:00 12:07 12:15 12:29 Temp 100.8 100.8 100.8 Pulse 96 100 100 Resp B/P (MAP) 143/72 (95) 136/73 Pulse Ox 91 91 88 09/09/20 09/09/20 09/09/20 09/09/20 12:30 13:00 13:07 13:10 Temp 100.8 100.4 100.4 Pulse 93 74 72 72 Resp B/P (MAP) 144/83 (103) Pulse Ox 92 94 95 95 FiO2 100 09/09/20 09/09/20 09/09/20 09/09/20 13:15 13:30 14:00 14:07 Temp 100.4 100.4 100.2 100.2 Pulse 76 77 78 69 Resp 26 B/P (MAP) 117/74 (88) Pulse Ox 94 93 91 95 09/09/20 09/09/20 09/09/20 09/09/20 14:15 14:30 15:00 15:00 Temp 100.2 100.0 Pulse 74 66 66 90 Resp 28 Pulse Ox 96 96 96 96 09/09/20 09/09/20 09/09/20 09/09/20 15:00 15:07 15:15 15:30 Temp 99.7 99.9 99.9 Pulse 90 82 79 76 Resp 13 B/P (MAP) 152/82 (105) 138/82 (100) Pulse Ox 96 97 98 99 09/09/20 09/09/20 09/09/20 09/09/20 16:00 16:00 16:00 18:21 Pulse 63 60 63 Resp 22 22 22 Pulse Ox 94 90 94 O2 Delivery Mechanical Ventilator FiO2 100 100 100 09/09/20 09/09/20 09/09/20 09/09/20 19:00 19:07 19:15 19:30 Temp 99.1 99.1 99.1 99.0 Pulse 63 61 63 62 Resp 18 22 23 B/P (MAP) 142/76 (98) Pulse Ox 93 93 94 94 09/09/20 09/09/20 09/09/20 09/09/20 19:37 19:45 20:00 20:00 Temp 99.0 99.0 Pulse 63 62 61 Resp 23 B/P (MAP) 154/79 (104) Pulse Ox 93 92 92 O2 Delivery Mechanical Ventilator FiO2 100 09/09/20 09/09/20 09/09/20 09/09/20 20:00 20:00 20:07 20:15 Temp 99.0 98.8 98.8 Pulse 60 62 63 61 Resp 24 22 23 B/P (MAP) 144/77 (99) Pulse Ox 90 92 92 92 FiO2 100 09/09/20 09/09/20 09/09/20 09/09/20 20:30 20:37 20:45 21:00 Temp 98.6 98.6 98.6 98.4 Pulse 81 62 62 64 Resp 22 B/P (MAP) 133/69 (90) Pulse Ox 75 90 93 94 09/09/20 09/09/20 09/09/20 09/09/20 21:07 21:15 21:30 21:37 Temp 98.2 98.2 98.2 98.1 Pulse 64 63 62 60 Resp 22 22 22 22 B/P (MAP) 139/75 (96) 135/73 (93) Pulse Ox 94 94 94 94 09/09/20 09/09/20 09/09/20 09/09/20 21:45 22:57 22:57 22:58 Temp 98.1 Pulse 61 61 64 61 Resp 22 23 22 23 Pulse Ox 95 92 94 92 O2 Delivery Mechanical Ventilator FiO2 100 100 09/09/20 09/09/20 09/09/20 09/09/20 22:58 23:00 23:07 23:15 Temp 97.7 97.7 97.7 Pulse 64 55 55 56 Resp 22 22 22 22 B/P (MAP) 127/69 (88) Pulse Ox 94 93 95 95 09/09/20 09/09/20 09/09/20 09/10/20 23:30 23:37 23:45 00:00 Temp 97.7 97.7 97.5 97.5 Pulse 54 54 54 54 Resp 22 22 22 22 B/P (MAP) 136/73 (94) Pulse Ox 95 94 91 94 09/10/20 09/10/20 09/10/20 09/10/20 00:00 00:00 00:07 00:30 Temp 97.5 Pulse 60 56 55 Resp B/P (MAP) 132/71 (91) Pulse Ox 90 93 94 O2 Delivery Mechanical Ventilator FiO2 100 100 09/10/20 09/10/20 09/10/20 09/10/20 02:15 02:30 02:37 02:45 Temp 97.2 97.2 97.2 97.2 Pulse 55 54 54 53 Resp 22 B/P (MAP) 128/68 (88) Pulse Ox 92 92 93 91 09/10/20 09/10/20 09/10/20 09/10/20 03:00 03:00 03:00 03:07 Temp 97.0 97.0 Pulse 55 53 55 62 Resp 22 B/P (MAP) 132/70 (90) Pulse Ox 92 92 94 91 09/10/20 09/10/20 09/10/20 09/10/20 03:15 03:30 03:32 03:37 Temp 97.0 97.0 97.0 Pulse 58 64 55 72 Resp 24 B/P (MAP) 133/66 (88) Pulse Ox 89 92 92 93 FiO2 100 09/10/20 09/10/20 09/10/20 09/10/20 03:45 04:00 04:00 04:00 Temp 97.2 97.2 Pulse 77 60 85 Resp 22 28 Pulse Ox 92 90 88 O2 Delivery Mechanical Ventilator FiO2 100 09/10/20 09/10/20 09/10/20 11/30/20 04:07 04:15 04:30 04:37 Temp 97.3 97.5 97.7 97.9 Pulse 84 88 110 93 Resp 22 B/P (MAP) 130/67 (88) 135/69 (91) Pulse Ox 87 84 83 85 09/10/20 09/10/20 09/10/20 09/10/20 04:45 05:00 05:07 05:15 Temp 97.9 98.1 98.2 98.2 Pulse 90 88 87 89 Resp B/P (MAP) 136/66 (89) Pulse Ox 88 89 90 90 09/10/20 09/10/20 09/10/20 09/10/20 06:13 06:17 07:00 07:07 Temp 99.1 99.3 Pulse 69 93 95 Resp B/P (MAP) 150/65 178/78 (111) Pulse Ox 89 90 89 FiO2 100 09/10/20 09/10/20 09/10/20 09/10/20 07:10 07:20 07:30 07:37 Temp 99.3 99.5 99.7 99.9 Pulse 92 99 105 111 Resp B/P (MAP) 212/99 (136) Pulse Ox 89 89 88 87 09/10/20 09/10/20 09/10/20 09/10/20 07:40 07:50 07:50 07:58 Temp 100.0 100.4 100.4 Pulse 114 115 114 121 Resp B/P (MAP) 132/65 (87) Pulse Ox 86 86 87 83 FiO2 100 09/10/20 09/10/20 09/10/20 09/10/20 08:00 08:09 08:10 08:20 Temp 100.6 100.8 100.9 Pulse 118 114 110 Resp B/P (MAP) 145/82 (103) Pulse Ox 82 70 89 09/10/20 09/10/20 09/10/20 09/10/20 08:20 08:35 08:37 08:40 Temp 100.9 101.3 101.3 Pulse 110 101 101 Resp B/P (MAP) 66/39 (48) Pulse Ox 89 88 88 O2 Delivery Mechanical Ventilator 09/10/20 09/10/20 09/10/20 09/10/20 08:46 08:50 08:53 08:55 Temp 101.3 101.5 101.5 101.5 Pulse 95 95 92 90 Resp 24 8 B/P (MAP) 66/40 (49) 62/38 (46) 66/37 (47) 71/40 (50) Pulse Ox 88 89 89 92 09/10/20 09/10/20 09/10/20 09/10/20 08:59 09:00 09:03 09:07 Temp 101.5 101.5 101.5 101.5 Pulse 87 84 87 92 Resp B/P (MAP) 86/48 (61) 96/55 (69) 108/57 (74) Pulse Ox 85 86 90 91 09/10/20 09/10/20 09/10/20 09/10/20 09:08 09:09 09:14 09:15 Pulse 104 104 104 104 Resp 32 32 32 32 Pulse Ox 90 90 90 90 O2 Delivery Mechanical Ventilator FiO2 100 09/10/20 09/10/20 09/10/20 09/10/20 09:15 09:30 09:38 09:45 Temp 101.7 101.7 101.7 101.8 Pulse 99 108 112 115 Resp B/P (MAP) 136/74 (94) Pulse Ox 92 92 90 93 09/10/20 09/10/20 09/10/20 09/10/20 09:45 10:00 10:07 10:15 Temp 101.8 102.0 102.0 Pulse 115 116 113 107 Resp B/P (MAP) 126/58 (80) Pulse Ox 93 91 90 74 09/10/20 09/10/20 09/10/20 09/10/20 10:19 10:21 10:30 10:37 Pulse 113 115 118 114 Resp 22 B/P (MAP) 134/68 (90) 130/64 (86) 111/59 (76) Pulse Ox 68 74 77 78 09/10/20 09/10/20 09/10/20 09/10/20 10:45 10:45 11:08 11:10 Temp 101.7 Pulse 120 120 119 119 Resp 22 B/P (MAP) 129/67 (87) Pulse Ox 75 75 79 80 09/10/20 09/10/20 09/10/20 09/10/20 11:15 11:30 11:37 11:45 Pulse 116 115 113 114 Resp B/P (MAP) 102/55 (71) Pulse Ox 81 81 81 80 09/10/20 09/10/20 09/10/20 09/10/20 11:50 12:00 12:07 12:15 Pulse 125 115 112 111 Resp B/P (MAP) 108/55 (72) Pulse Ox 80 81 81 81 09/10/20 09/10/20 09/10/20 09/10/20 12:18 12:18 12:30 12:33 Temp 101.4 Pulse 112 112 112 Resp B/P (MAP) 114/61 (78) 114/61 (78) Pulse Ox 81 81 81 O2 Delivery Mechanical Ventilator FiO2 100 09/10/20 09/10/20 09/10/20 09/10/20 12:33 12:37 12:48 13:03 Pulse 112 112 110 110 Resp B/P (MAP) 118/56 (76) Pulse Ox 81 81 81 80 09/10/20 09/10/20 09/10/20 09/10/20 13:07 13:18 13:33 13:37 Pulse 109 103 107 108 Resp B/P (MAP) 110/54 (72) 124/70 (88) 146/64 (91) Pulse Ox 81 81 83 83 09/10/20 09/10/20 09/10/20 09/10/20 13:48 14:03 14:07 14:11 Pulse 106 104 105 106 Resp B/P (MAP) 147/65 (92) 120/69 (86) Pulse Ox 82 83 84 88 09/10/20 09/10/20 09/10/20 09/10/20 14:18 14:33 14:37 14:48 Pulse 99 89 Resp B/P (MAP) 112/57 (75) Pulse Ox 84 84 90 85 09/10/20 09/10/20 09/10/20 09/10/20 15:03 15:07 15:18 15:23 Pulse 89 87 85 85 Resp B/P (MAP) 106/56 (73) 98/48 (65) Pulse Ox 85 85 86 87 09/10/20 09/10/20 09/10/20 09/10/20 15:33 15:37 15:48 16:01 Pulse 83 82 82 105 Resp B/P (MAP) 107/62 (77) Pulse Ox 87 87 88 86 09/10/20 09/10/20 09/10/20 09/10/20 16:02 16:03 16:07 16:18 Temp 100.0 100.0 99.9 Pulse 105 81 82 82 Resp B/P (MAP) 109/61 (77) Pulse Ox 86 91 92 92 FiO2 100 09/10/20 09/10/20 09/10/20 09/10/20 16:21 16:22 16:22 16:27 Temp 99.9 99.9 Pulse 81 81 81 Resp B/P (MAP) 114/61 (78) Pulse Ox 92 92 81 O2 Delivery Mechanical Ventilator FiO2 100 09/10/20 09/10/20 09/10/20 09/10/20 16:37 16:52 17:07 17:22 Temp 99.7 99.7 99.7 99.5 Pulse 81 82 83 87 Resp B/P (MAP) 116/48 (70) 125/58 (80) Pulse Ox 92 92 93 92 09/10/20 09/10/20 09/10/20 09/10/20 17:37 17:52 18:07 18:22 Temp 99.5 99.5 99.3 99.3 Pulse 89 88 86 87 Resp B/P (MAP) 114/57 (76) 127/59 (81) Pulse Ox 92 91 91 91 09/10/20 09/10/20 09/10/20 09/10/20 18:37 19:00 19:07 19:15 Temp 99.3 99.3 99.3 99.3 Pulse 88 86 88 86 Resp B/P (MAP) 126/64 (84) 126/70 (88) Pulse Ox 89 91 91 92 09/10/20 09/10/20 09/10/20 09/10/20 19:30 19:37 19:45 20:00 Temp 99.3 99.3 99.3 Pulse 85 84 86 86 Resp 22 22 22 22 B/P (MAP) 122/66 (84) Pulse Ox 92 91 91 92 09/10/20 09/10/20 09/10/20 09/10/20 20:00 20:00 20:00 20:00 Temp 99.3 Pulse 86 84 84 86 Resp 22 22 22 22 Pulse Ox 92 91 91 92 O2 Delivery Mechanical Ventilator FiO2 100 100 09/10/20 09/10/20 09/10/20 09/10/20 20:00 20:00 20:07 20:15 Temp 99.3 99.3 Pulse 60 87 86 Resp 22 22 22 B/P (MAP) 120/67 (84) Pulse Ox 90 93 92 O2 Delivery Mechanical Ventilator FiO2 100 09/10/20 09/10/20 09/10/20 09/10/20 20:30 20:37 20:45 21:00 Temp 99.3 99.3 99.3 99.3 Pulse 87 86 104 105 Resp 22 22 25 22 B/P (MAP) 121/45 (70) Pulse Ox 92 92 91 93 09/10/20 09/10/20 09/10/20 09/10/20 21:07 21:15 21:30 21:45 Temp 99.1 99.1 99.1 99.1 Pulse 105 104 97 98 Resp 22 22 22 22 B/P (MAP) 126/62 (83) Pulse Ox 93 93 93 94 09/10/20 09/10/20 09/10/20 09/10/20 22:00 22:03 22:07 22:15 Temp 99.1 99.1 99.1 Pulse 91 95 90 88 Resp 22 26 22 22 B/P (MAP) 130/71 (90) Pulse Ox 94 91 94 93 FiO2 100 09/10/20 09/10/20 09/10/20 09/10/20 22:30 22:37 22:45 23:00 Temp 99.1 99.1 99.1 99.3 Pulse 89 85 87 87 Resp 22 22 22 22 B/P (MAP) 120/68 (85) Pulse Ox 94 95 95 95 09/10/20 09/10/20 09/10/20 09/10/20 23:07 23:15 23:30 23:37 Temp 99.3 99.3 99.3 99.3 Pulse 84 85 85 85 Resp 22 22 B/P (MAP) 121/71 (88) 129/60 (83) Pulse Ox 95 95 95 95 09/10/20 09/11/20 09/11/20 09/11/20 23:45 00:00 00:00 00:00 Temp 99.3 99.3 Pulse 84 60 84 Resp 22 22 Pulse Ox 96 90 96 O2 Delivery Mechanical Ventilator FiO2 100 09/11/20 09/11/20 09/11/20 09/11/20 00:07 00:15 01:30 02:30 Temp 99.5 99.5 99.7 Pulse 82 87 79 81 Resp 22 B/P (MAP) 126/73 (90) Pulse Ox 95 95 97 96 FiO2 100 09/11/20 09/11/20 09/11/20 09/11/20 02:37 02:45 03:00 03:00 Temp 99.7 99.7 Pulse 78 84 88 Resp 22 B/P (MAP) 127/70 (89) Pulse Ox 97 95 92 92 FiO2 100 09/11/20 09/11/20 09/11/20 09/11/20 03:00 03:00 03:12 03:15 Temp 99.7 Pulse 88 116 113 Resp 58 23 B/P (MAP) 125/94 (104) Pulse Ox 92 94 09/11/20 09/11/20 09/11/20 09/11/20 03:30 03:37 03:45 04:00 Temp 99.7 99.7 99.7 Pulse 119 117 113 60 Resp 22 22 B/P (MAP) 134/59 (84) Pulse Ox 92 89 90 90 FiO2 100 09/11/20 09/11/20 09/11/20 09/11/20 04:00 04:07 04:15 04:30 Temp 99.7 99.7 99.7 99.7 Pulse 106 105 103 102 Resp 22 B/P (MAP) 117/60 (79) Pulse Ox 89 90 89 88 09/11/20 09/11/20 09/11/20 09/11/20 04:37 04:45 05:00 05:07 Temp 99.7 99.7 99.7 99.7 Pulse 100 98 88 88 Resp 22 B/P (MAP) 123/57 (79) 110/58 (75) Pulse Ox 89 89 89 89 09/11/20 09/11/20 09/11/20 09/11/20 05:10 05:15 06:37 07:07 Temp 99.7 99.9 100.4 Pulse 83 85 102 114 Resp 22 B/P (MAP) 135/78 (97) 142/67 (92) Pulse Ox 91 89 88 83 FiO2 100 09/11/20 09/11/20 09/11/20 09/11/20 07:37 08:07 08:37 08:38 Temp 100.9 101.5 101.7 Pulse 118 121 127 Resp B/P (MAP) 153/71 (98) 148/68 (94) 140/61 (87) Pulse Ox 78 79 77 O2 Delivery Mechanical Ventilator 09/11/20 09/11/20 09/11/20 09/11/20 08:50 09:07 09:35 09:37 Temp 102.0 101.8 Pulse 121 60 118 Resp B/P (MAP) 140/61 138/69 (92) 135/64 (87) Pulse Ox 74 90 76 FiO2 100 09/11/20 09/11/20 09/11/20 09/11/20 09:37 09:37 09:39 09:39 Pulse 117 117 117 117 Resp Pulse Ox 80 80 80 80 O2 Delivery Mechanical Ventilator FiO2 100 100 09/11/20 09/11/20 09/11/20 09/11/20 10:02 10:07 10:37 11:07 Temp 101.8 101.8 102.0 102.0 Pulse 127 129 114 125 Resp 13 B/P (MAP) 151/72 (98) 132/64 (86) 96/55 (69) 133/80 (97) Pulse Ox 55 71 75 81 09/11/20 09/11/20 09/11/20 09/11/20 11:37 12:07 12:15 12:30 Temp 102.0 101.5 Pulse 110 98 108 Resp 25 B/P (MAP) 86/44 (58) 71/39 (50) Pulse Ox 78 77 80 O2 Delivery Mechanical Ventilator FiO2 100 09/11/20 09/11/20 09/11/20 09/11/20 12:37 13:07 13:38 13:46 Temp 101.1 100.8 100.2 100.2 Pulse 80 73 67 44 Resp B/P (MAP) 75/40 (52) 73/39 (50) 99/35 (56) 65/27 (40) Pulse Ox 65 61 74 47 09/11/20 09/11/20 09/11/20 09/11/20 13:51 13:57 14:11 14:26 Temp 100.0 100.0 99.7 99.7 Pulse 61 60 58 76 Resp B/P (MAP) 80/38 (52) 87/31 (49) 77/41 (53) 70/32 (45) Pulse Ox 38 45 38 52 09/11/20 09/11/20 09/11/20 09/11/20 14:37 14:41 14:47 14:56 Temp 99.5 Pulse 58 61 81 67 Resp B/P (MAP) 67/42 (50) 82/44 (57) 73/43 (53) 66/43 (51) Pulse Ox 45 52 68 59 09/11/20 09/11/20 09/11/20 09/11/20 14:56 15:11 15:26 15:41 Temp 99.1 99.1 Pulse 60 71 84 92 Resp B/P (MAP) 61/26 (38) 91/58 (69) 121/68 (85) Pulse Ox 90 55 57 84 FiO2 100 09/11/20 09/11/20 09/11/20 09/11/20 15:56 16:12 16:15 16:15 Temp 99.3 99.3 Pulse 90 90 100 100 Resp 22 B/P (MAP) 103/72 (82) 100/60 (73) Pulse Ox 84 82 77 77 FiO2 90 09/11/20 09/11/20 09/11/20 09/11/20 16:15 16:26 16:33 16:41 Temp 99.5 99.7 Pulse 100 90 90 Resp B/P (MAP) 105/64 (78) 124/60 (81) Pulse Ox 77 90 84 O2 Delivery Mechanical Ventilator 09/11/20 09/11/20 09/11/20 09/11/20 16:56 17:11 17:26 17:41 Temp 99.7 99.9 100.0 100.0 Pulse 91 94 94 101 Resp B/P (MAP) 102/66 (78) 120/69 (86) 120/63 (82) 126/67 (86) Pulse Ox 82 84 85 83 09/11/20 09/11/20 09/11/20 09/11/20 17:56 18:12 18:26 18:41 Temp 100.2 100.4 100.4 100.6 Pulse 95 99 56 97 Resp B/P (MAP) 118/75 (89) 102/46 (64) 64/33 (43) 101/66 (78) Pulse Ox 83 84 82 80 09/11/20 09/11/20 09/11/20 09/11/20 18:56 19:11 19:26 19:41 Temp 100.6 100.8 100.9 101.1 Pulse 95 99 102 101 Resp B/P (MAP) 137/80 (99) 154/94 (114) 143/78 (99) 141/70 (93) Pulse Ox 85 88 87 86 09/11/20 09/11/20 09/11/20 09/11/20 19:56 20:00 20:00 20:00 Temp 101.3 Pulse 100 101 104 101 Resp B/P (MAP) 141/76 (97) Pulse Ox 87 88 89 86 O2 Delivery Mechanical Ventilator FiO2 100 90 09/11/20 09/11/20 09/11/20 09/11/20 20:00 20:00 20:00 20:11 Temp 101.5 Pulse 110 101 100 Resp B/P (MAP) 138/81 (100) Pulse Ox 85 86 86 O2 Delivery Mechanical Ventilator FiO2 100 09/11/20 09/11/20 09/11/20 09/11/20 20:26 20:56 21:11 21:26 Temp 101.7 101.2 Pulse 101 100 107 107 Resp B/P (MAP) 143/83 (103) 133/79 (97) 137/74 (95) 134/72 (92) Pulse Ox 86 86 86 87 09/11/20 09/11/20 09/11/20 09/11/20 21:41 21:56 22:11 22:15 Temp 101.5 101.4 Pulse 106 107 106 104 Resp B/P (MAP) 138/73 (94) 123/69 (87) 120/73 (89) Pulse Ox 86 86 85 87 FiO2 90 09/11/20 09/11/20 09/11/20 09/11/20 22:26 22:41 22:56 23:11 Temp 101.0 100.9 Pulse 104 102 102 100 Resp B/P (MAP) 121/63 (82) 111/66 (81) 119/63 (81) 112/65 (81) Pulse Ox 87 87 87 87 09/11/20 09/11/20 09/12/20 09/12/20 23:41 23:56 00:00 00:00 Temp 100.6 Pulse 99 98 110 Resp B/P (MAP) 114/67 (83) 118/69 (85) Pulse Ox 86 86 85 O2 Delivery Mechanical Ventilator FiO2 100 09/12/20 09/12/20 09/12/20 09/12/20 00:11 00:26 00:56 01:00 Temp 100.5 Pulse 98 98 98 108 Resp B/P (MAP) 125/69 (87) 128/78 (95) 122/71 (88) Pulse Ox 88 87 88 87 FiO2 90 09/12/20 09/12/20 09/12/20 09/12/20 01:11 01:26 01:41 01:56 Temp 100.4 Pulse 99 98 97 98 Resp B/P (MAP) 114/67 (83) 121/74 (90) 124/73 (90) 97/57 (70) Pulse Ox 85 87 88 82 09/12/20 09/12/20 09/12/20 09/12/20 02:11 02:15 02:15 02:15 Temp 100.4 Pulse 97 95 95 95 Resp B/P (MAP) 92/39 (56) Pulse Ox 80 89 85 85 FiO2 90 09/12/20 09/12/20 09/12/20 09/12/20 02:26 02:41 02:56 03:11 Temp 100.3 Pulse 95 99 101 101 Resp 22 B/P (MAP) 100/60 (73) 119/65 (83) 116/64 (81) 116/69 (85) Pulse Ox 83 89 87 88 09/12/20 09/12/20 09/12/20 09/12/20 03:41 03:56 04:00 04:00 Pulse 100 99 94 Resp B/P (MAP) 132/58 (82) 114/50 (71) Pulse Ox 85 82 86 O2 Delivery Mechanical Ventilator FiO2 100 09/12/20 09/12/20 09/12/20 09/12/20 04:02 04:11 04:26 04:40 Temp 100.1 Pulse 97 96 96 Resp B/P (MAP) 114/50 119/70 (86) 113/70 (84) Pulse Ox 83 83 85 FiO2 90 09/12/20 09/12/20 09/12/20 09/12/20 04:41 04:56 05:11 05:26 Temp 99.9 Pulse 95 96 96 94 Resp B/P (MAP) 121/58 (79) 121/59 (79) 120/70 (87) 113/68 (83) Pulse Ox 84 83 83 83 09/12/20 09/12/20 09/12/20 09/12/20 05:41 05:56 06:11 06:26 Temp 99.8 Pulse 95 93 92 93 Resp B/P (MAP) 114/66 (82) 115/67 (83) 112/66 (81) 113/68 (83) Pulse Ox 83 83 84 84 09/12/20 09/12/20 09/12/20 09/12/20 06:41 07:00 07:11 07:26 Pulse 91 90 90 89 Resp 22 22 B/P (MAP) 119/60 (79) 123/70 (87) 119/63 (81) Pulse Ox 85 85 86 86 09/12/20 09/12/20 09/12/20 09/12/20 07:30 07:41 07:56 08:00 Pulse 89 90 89 Resp 22 22 B/P (MAP) 119/74 (89) 118/71 (87) Pulse Ox 86 86 86 O2 Delivery Mechanical Ventilator 09/12/20 09/12/20 09/12/20 09/12/20 08:00 08:00 08:11 08:26 Temp 98.8 Pulse 89 94 89 87 Resp B/P (MAP) 115/70 (85) 116/68 (84) Pulse Ox 86 86 86 86 FiO2 100 09/12/20 09/12/20 09/12/20 09/12/20 08:30 08:41 08:56 09:11 Pulse 83 87 82 91 Resp B/P (MAP) 147/66 (93) 141/82 (101) 132/62 (85) Pulse Ox 85 87 87 90 09/12/20 09/12/20 09/12/20 09/12/20 09:26 09:40 09:40 09:40 Pulse 95 88 88 88 Resp B/P (MAP) 113/58 (76) Pulse Ox 87 86 86 86 O2 Delivery Mechanical Ventilator FiO2 100 100 09/12/20 09/12/20 09/12/20 09/12/20 09:40 09:41 09:56 10:11 Pulse 88 93 92 91 Resp B/P (MAP) 110/59 (76) 111/55 (73) 107/66 (80) Pulse Ox 86 86 86 86 09/12/20 09/12/20 09/12/20 09/12/20 10:26 10:41 10:56 11:00 Pulse 91 89 88 Resp B/P (MAP) 109/56 (73) 105/68 (80) 108/67 (81) 112/68 Pulse Ox 87 88 88 09/12/20 09/12/20 09/12/20 09/12/20 11:26 11:41 11:56 12:00 Pulse 87 87 84 Resp B/P (MAP) 116/66 (83) 120/68 (85) 134/77 (96) Pulse Ox 90 91 89 O2 Delivery Mechanical Ventilator 09/12/20 09/12/20 09/12/20 09/12/20 12:00 12:11 12:20 12:26 Temp 98.6 Pulse 94 81 92 81 Resp 22 B/P (MAP) 140/78 (98) 150/84 (106) Pulse Ox 86 95 85 93 FiO2 100 100 09/12/20 09/12/20 09/12/20 09/12/20 12:41 12:51 12:57 13:11 Pulse 83 83 83 Resp B/P (MAP) 147/81 (103) 152/57 (88) 156/59 (91) Pulse Ox 91 99 88 90 09/12/20 09/12/20 09/12/20 09/12/20 13:26 14:18 14:30 14:45 Temp 99.0 99.0 Pulse 83 83 91 90 Resp B/P (MAP) 148/95 (112) 145/67 (93) 142/72 (95) 141/73 (95) Pulse Ox 87 85 89 89 09/12/20 09/12/20 09/12/20 09/12/20 15:00 15:15 15:30 15:45 Temp 99.0 98.8 98.8 98.8 Pulse 90 87 87 85 Resp B/P (MAP) 138/63 (88) 154/79 (104) 145/75 (98) 163/80 (107) Pulse Ox 85 86 87 87 09/12/20 09/12/20 09/12/20 09/12/20 15:54 15:55 15:56 16:00 Pulse 90 90 90 94 Resp Pulse Ox 89 89 89 90 FiO2 100 100 09/12/20 09/12/20 09/12/20 09/12/20 16:00 16:15 16:30 16:45 Temp 98.6 98.6 98.6 98.6 Pulse 83 84 88 86 Resp B/P (MAP) 153/80 (104) 145/77 (99) 148/79 (102) 154/76 (102) Pulse Ox 88 88 89 89 09/12/20 09/12/20 09/12/20 09/12/20 17:00 19:00 19:15 19:30 Temp 98.6 98.6 98.6 98.6 Pulse 89 94 95 96 Resp B/P (MAP) 157/79 (105) 149/84 (105) 181/85 (117) 164/86 (112) Pulse Ox 89 88 88 87 09/12/20 09/12/20 09/12/202/20 19:45 20:00 20:00 20:00 Temp 98.6 98.6 Pulse 97 114 96 Resp B/P (MAP) 161/83 (109) 175/87 (116) Pulse Ox 88 88 88 O2 Delivery Mechanical Ventilator FiO2 100 09/12/20 09/12/20 09/12/20 09/12/20 20:15 20:30 20:45 20:45 Temp 98.6 98.6 98.6 98.6 Pulse 99 99 108 108 Resp B/P (MAP) 165/89 (114) 155/87 (109) 163/83 (109) 163/83 (109) Pulse Ox 88 88 88 88 09/12/20 09/12/20 09/12/20 09/12/20 21:00 21:00 21:15 21:30 Temp 98.6 98.6 Pulse 100 99 101 99 Resp B/P (MAP) 180/85 (116) 163/86 (111) Pulse Ox 88 88 88 88 O2 Delivery Mechanical Ventilator FiO2 100 09/12/20 09/12/20 09/12/20 09/12/20 21:30 21:30 21:45 22:00 Temp 98.6 98.6 98.6 Pulse 98 100 111 107 Resp B/P (MAP) 168/88 (114) 148/84 (105) 169/89 (115) Pulse Ox 89 88 89 89 09/12/20 09/12/20 09/12/20 09/12/20 22:15 22:23 22:30 22:45 Temp 98.6 98.6 98.6 Pulse 107 99 107 107 Resp B/P (MAP) 175/92 (119) 167/92 (117) 165/92 (116) Pulse Ox 90 88 89 89 FiO2 100 09/12/20 09/12/20 09/12/20 09/12/20 22:45 23:00 23:15 23:30 Temp 98.6 98.6 98.6 98.6 Pulse 107 108 105 105 Resp B/P (MAP) 165/92 (116) 179/87 (117) 155/85 (108) 162/92 (115) Pulse Ox 89 89 89 88 09/12/20 09/13/20 09/13/20 09/13/20 23:45 00:00 00:00 00:15 Temp 98.6 98.6 98.6 Pulse 105 106 105 Resp B/P (MAP) 151/89 (109) 150/93 (112) 152/89 (110) Pulse Ox 88 88 88 FiO2 100 09/13/20 09/13/20 09/13/20 09/13/20 00:15 00:30 00:45 01:00 Temp 98.6 98.6 98.6 98.6 Pulse 105 105 104 103 Resp B/P (MAP) 152/89 (110) 146/88 (107) 159/89 (112) 160/93 (115) Pulse Ox 88 88 87 87 09/13/20 09/13/20 09/13/20 09/13/20 01:15 01:30 01:45 02:00 Temp 98.6 98.8 98.8 98.8 Pulse 104 104 109 B/P (MAP) 155/89 (111) 159/91 (113) 162/83 (109) 156/80 (105) Pulse Ox 87 88 88 85 09/13/20 09/13/20 09/13/20 09/13/20 02:15 02:30 02:45 02:46 Temp 98.8 98.8 98.8 98.6 Pulse 106 109 109 Resp B/P (MAP) 137/67 (90) 164/84 (110) 160/83 (108) Pulse Ox 86 87 87 87 09/13/20 09/13/20 09/13/20 09/13/20 02:52 02:57 02:58 03:00 Temp 98.6 Pulse 103 105 103 108 Resp B/P (MAP) 154/84 (107) Pulse Ox 87 88 87 87 FiO2 100 09/13/20 09/13/20 09/13/20 09/13/20 03:01 03:15 03:16 03:30 Temp 98.6 98.6 98.6 98.6 Pulse 108 108 108 109 Resp B/P (MAP) 146/84 (104) 151/87 (108) Pulse Ox 87 86 87 86 12/3/09/13/20 09/13/20 09/13/20 03:31 03:45 03:46 04:00 Temp 98.6 98.6 98.6 Pulse 108 107 108 Resp B/P (MAP) 146/83 (104) Pulse Ox 86 86 86 FiO2 100 09/13/20 09/13/20 09/13/20 09/13/20 04:00 04:01 04:15 04:16 Temp 98.6 98.6 98.6 98.6 Pulse 108 109 107 109 Resp B/P (MAP) 153/79 (103) 142/83 (102) Pulse Ox 86 86 86 86 09/13/20 09/13/20 09/13/20 09/13/20 04:30 04:31 04:45 04:46 Temp 98.6 98.6 98.6 98.6 Pulse 109 109 107 109 Resp B/P (MAP) 137/80 (99) 136/82 (100) Pulse Ox 86 86 85 86 09/13/20 09/13/20 09/13/20 09/13/20 04:46 05:00 05:01 05:15 Temp 98.6 98.6 98.6 98.6 Pulse 109 108 107 106 Resp B/P (MAP) 144/81 (102) 145/81 (102) Pulse Ox 86 85 86 85 09/13/20 09/13/20 09/13/20 09/13/20 05:16 05:27 05:30 05:31 Temp 98.6 98.6 98.6 Pulse 107 110 107 107 Resp B/P (MAP) 151/84 (106) Pulse Ox 85 86 85 85 FiO2 100 09/13/20 09/13/20 09/13/20 09/13/20 05:45 05:46 07:00 07:15 Temp 98.6 98.6 98.6 98.6 Pulse 108 107 110 114 Resp B/P (MAP) 138/80 (99) 157/82 (107) 151/85 (107) Pulse Ox 85 85 85 85 09/13/20 09/13/20 09/13/20 09/13/20 07:30 07:34 08:00 08:00 Temp 98.6 98.6 Pulse 109 111 Resp B/P (MAP) 143/86 (105) 146/88 146/88 (107) Pulse Ox 85 85 O2 Delivery Mechanical Ventilator 09/13/20 09/13/20 09/13/20 09/13/20 08:15 08:30 08:59 09:03 Temp 98.6 98.4 Pulse 110 111 111 Resp 22 B/P (MAP) 152/84 (106) 149/83 (105) Pulse Ox 85 87 85 FiO2 100 09/13/20 09/13/20 09/13/20 09:04 09:07 09:07 Pulse 111 111 111 Resp Pulse Ox 85 85 85 O2 Delivery Mechanical Ventilator FiO2 100 100 Intake and Output 09/13/20 06:00 Intake Total 600 ml Output Total 25 ml Balance 575 ml VTE VTE Risk Total Score: 2 VTE Risk Score VTE Risk: Score 0-1 = Low Risk (Aggressive mobilization; early ambulation; no VTE prophylaxis required) Score 2: Moderate Risk (Intermittent/Pneumatic Compression Device OR Lovenox/Heparin/Coumadin) Score 3-4: High Risk (Intermittent/Pneumatic Compression Device AND Lovenox/Heparin/Coumadin) Score > or =5: Highest Risk (Intermittent/Pneumatic Compression Device AND Lovenox/Heparin/Coumadin) Antico:Hep/LMWH/Coum/Xarelto: Yes VTE VTE Present on Admission: No Currently receiving anticoagul: Yes VTE Risk Total Score: 2 Antico:Hep/LMWH/Coum/Xarelto: Yes Assessment/Plan Assessment/Plan Patient History: Unknown 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 Plan 54yoM COVID/ARDS; Prolonged intubation; Attempted proning protocol Remains unresponsive nearly off sedation Severe hypoxemia and hypercapnea today 7.07/68/52/19 on ACVC 500/22/100/16 inverse ratio ventilation 2:1 CXR severe bilateral infiltrates with subcut emphysema noted Renal function much worse s/p 5L positive balance yesterday; Hyperkalemic and anuric; On IVF Worsening leukocytosis Worsening transaminitis On abx Now DNR Some attempt by local staff to transfer to outside facility for dialysis Plan Continue to minimize sedation for neuro assessments DC proning; Too unstable and hypercapneic which would likely worsen with proning Hemodynamics acceptable off vasopressors Trial high dose lasix with albumin; Would need CRRT urgently if he stabilizes for transfer No options for any vent optimization; This is profound and likely refractory ARDS; Not a good ECMO candidate; Likely too unstable for transfer Would suggest continued family discussions and reiterate that he is failing maximum support I discussed pt with BULK LO[employer]ER and completed the video assessment with assistance from the BULK LOADER. I spent a total of greater than 60 minutes formulating critical care for this patient today. I saw this patient and completed a full visual exam via audio-visual HIPAA compliant technology. JOSE ZAMORA MD Sep 13, 2020 12:16
[2020-09-13] MEDS ORDERED: BUMINATE 25% 100 ML IV ONE (13:16)
[2020-09-13] MEDS ORDERED: LASIX ONE (13:22)
--- NOTE | 2020-09-13 13:22 | PRM.PN ---
PROGRESS NOTE S/O/A/P Subjective: unobtainable. last 24 hrs events: Respiratory status still poor. O2 sat 80s%. HD stable. No urinary output. he was given multiple doses of lasix with no effects. ROS: unobtainable. Objective Vital Sign - Last 24 Hours 09/12/20 09/12/20 09/12/20 09/12/20 13:26 14:18 14:30 14:45 Temp 99.0 99.0 Pulse 83 83 91 90 Resp 22 B/P (MAP) 148/95 (112) 145/67 (93) 142/72 (95) 141/73 (95) Pulse Ox 87 85 89 89 09/12/20 09/12/20 09/12/20 09/12/20 15:00 15:15 15:30 15:45 Temp 99.0 98.8 98.8 98.8 Pulse 90 87 87 85 Resp B/P (MAP) 138/63 (88) 154/79 (104) 145/75 (98) 163/80 (107) Pulse Ox 85 86 87 87 09/12/20 09/12/20 09/12/20 09/12/20 15:54 15:55 15:56 16:00 Pulse 90 90 90 94 Resp Pulse Ox 89 89 89 90 FiO2 100 100 09/12/20 09/12/20 09/12/20 09/12/20 16:00 16:15 16:30 16:45 Temp 98.6 98.6 98.6 98.6 Pulse 83 84 88 86 Resp B/P (MAP) 153/80 (104) 145/77 (99) 148/79 (102) 154/76 (102) Pulse Ox 88 88 89 89 09/12/20 09/12/20 09/12/20 09/12/20 17:00 19:00 19:15 19:30 Temp 98.6 98.6 98.6 98.6 Pulse 89 94 95 96 Resp 22 B/P (MAP) 157/79 (105) 149/84 (105) 181/85 (117) 164/86 (112) Pulse Ox 89 88 88 87 09/12/20 09/12/20 09/12/20 09/12/20 19:45 20:00 20:00 20:00 Temp 98.6 98.6 Pulse 97 114 96 Resp B/P (MAP) 161/83 (109) 175/87 (116) Pulse Ox 88 88 88 O2 Delivery Mechanical Ventilator FiO2 100 09/12/20 09/12/20 09/12/20 09/12/20 20:15 20:30 20:45 20:45 Temp 98.6 98.6 98.6 98.6 Pulse 99 99 108 108 Resp B/P (MAP) 165/89 (114) 155/87 (109) 163/83 (109) 163/83 (109) Pulse Ox 88 88 88 88 09/12/20 09/12/20 09/12/20 09/12/20 21:00 21:00 21:15 21:30 Temp 98.6 98.6 Pulse 100 99 101 99 Resp B/P (MAP) 180/85 (116) 163/86 (111) Pulse Ox 88 88 88 88 O2 Delivery Mechanical Ventilator FiO2 100 09/12/20 09/12/20 09/12/20 09/12/20 21:30 21:30 21:45 22:00 Temp 98.6 98.6 98.6 Pulse 98 100 111 107 Resp B/P (MAP) 168/88 (114) 148/84 (105) 169/89 (115) Pulse Ox 89 88 89 89 09/12/20 09/12/20 09/12/20 09/12/20 22:15 22:23 22:30 22:45 Temp 98.6 98.6 98.6 Pulse 107 99 107 107 Resp B/P (MAP) 175/92 (119) 167/92 (117) 165/92 (116) Pulse Ox 90 88 89 89 FiO2 100 09/12/20 09/12/20 09/12/20 09/12/20 22:45 23:00 23:15 23:30 Temp 98.6 98.6 98.6 98.6 Pulse 107 108 105 105 Resp B/P (MAP) 165/92 (116) 179/87 (117) 155/85 (108) 162/92 (115) Pulse Ox 89 89 89 88 09/12/20 09/13/20 09/13/20 09/13/20 23:45 00:00 00:00 00:15 Temp 98.6 98.6 98.6 Pulse 105 106 105 Resp B/P (MAP) 151/89 (109) 150/93 (112) 152/89 (110) Pulse Ox 88 88 88 FiO2 100 09/13/20 09/13/20 09/13/20 09/13/20 00:15 00:30 00:45 01:00 Temp 98.6 98.6 98.6 98.6 Pulse 105 105 104 103 Resp B/P (MAP) 152/89 (110) 146/88 (107) 159/89 (112) 160/93 (115) Pulse Ox 88 88 87 87 09/13/20 09/13/20 09/13/20 09/13/20 01:15 01:30 01:45 02:00 Temp 98.6 98.8 98.8 98.8 Pulse 104 104 109 Resp B/P (MAP) 155/89 (111) 159/91 (113) 162/83 (109) 156/80 (105) Pulse Ox 87 88 88 85 09/13/20 09/13/20 09/13/20 09/13/20 02:15 02:30 02:45 02:46 Temp 98.8 98.8 98.8 98.6 Pulse 106 109 109 Resp B/P (MAP) 137/67 (90) 164/84 (110) 160/83 (108) Pulse Ox 86 87 87 87 09/13/20 09/13/20 09/13/20 09/13/20 02:52 02:57 02:58 03:00 Temp 98.6 Pulse 103 105 103 108 Resp B/P (MAP) 154/84 (107) Pulse Ox 87 88 87 87 FiO2 100 09/13/20 09/13/20 09/13/20 09/13/20 03:01 03:15 03:16 03:30 Temp 98.6 98.6 98.6 98.6 Pulse 108 108 108 109 Resp B/P (MAP) 146/84 (104) 151/87 (108) Pulse Ox 87 86 87 86 12/3/20 12/3/20 12/3/20 12/3/20 03:31 03:45 03:46 04:00 Temp 98.6 98.6 98.6 Pulse 108 107 108 Resp B/P (MAP) 146/83 (104) Pulse Ox 86 86 86 FiO2 100 09/13/20 09/13/20 09/13/20 09/13/20 04:00 04:01 04:15 04:16 Temp 98.6 98.6 98.6 98.6 Pulse 108 109 107 109 Resp B/P (MAP) 153/79 (103) 142/83 (102) Pulse Ox 86 86 86 86 09/13/20 09/13/20 09/13/20 09/13/20 04:30 04:31 04:45 04:46 Temp 98.6 98.6 98.6 98.6 Pulse 109 109 107 109 Resp B/P (MAP) 137/80 (99) 136/82 (100) Pulse Ox 86 86 85 86 09/13/20 09/13/20 09/13/20 09/13/20 04:46 05:00 05:01 05:15 Temp 98.6 98.6 98.6 98.6 Pulse 109 108 107 106 Resp B/P (MAP) 144/81 (102) 145/81 (102) Pulse Ox 86 85 86 85 09/13/20 09/13/20 09/13/20 09/13/20 05:16 05:27 05:30 05:31 Temp 98.6 98.6 98.6 Pulse 107 110 107 107 Resp B/P (MAP) 151/84 (106) Pulse Ox 85 86 85 85 FiO2 100 09/13/20 09/13/20 09/13/20 09/13/20 05:45 05:46 07:00 07:15 Temp 98.6 98.6 98.6 98.6 Pulse 108 107 110 114 Resp B/P (MAP) 138/80 (99) 157/82 (107) 151/85 (107) Pulse Ox 85 85 85 85 09/13/20 09/13/20 09/13/20 09/13/20 07:30 07:34 08:00 08:00 Temp 98.6 98.6 Pulse 109 111 Resp B/P (MAP) 143/86 (105) 146/88 146/88 (107) Pulse Ox 85 85 O2 Delivery Mechanical Ventilator 09/13/20 09/13/20 09/13/20 09/13/20 08:15 08:30 08:59 09:03 Temp 98.6 98.4 Pulse 110 111 111 Resp 22 22 22 B/P (MAP) 152/84 (106) 149/83 (105) Pulse Ox 85 87 85 FiO2 100 09/13/20 09/13/20 09/13/20 09:04 09:07 09:07 Pulse 111 111 111 Resp 22 22 22 Pulse Ox 85 85 85 O2 Delivery Mechanical Ventilator FiO2 100 100 Intake and Output 09/13/20 06:59 Intake Total 600 ml Output Total 25 ml Balance 575 ml Physical exam: General: no distress. Neuro:deeply sedated. Heart: Normal S1, Normal S2, No murmurs. Abdomen: Normal bowel sounds, Soft Lungs: markedly decrease breath sounds b/l . Lungs are full of rales. no wheezes. Skin: multiple abrasions. Extremities: ++edema. palpable pulses. cold feet with bluish discoloration on heels. Laboratory Tests Test 09/12/20 16:47 09/12/20 17:28 09/13/20 02:40 09/13/20 04:17 Sodium Level 137 mmol/L 136 mmol/L Potassium Level 5.7 mmol/L 6.0 mmol/L Chloride Level 101.0 mmol/L 100.0 mmol/L Carbon Dioxide Level 23.9 mmol/L 21.0 mmol/L Glucose Level 112 mg/dL 128 mg/dL Blood Urea Nitrogen 67 mg/dL 85 mg/dL Creatinine 3.14 mg/dL 3.87 mg/dL Calcium Level 7.7 mg/dL 7.5 mg/dL Anion Gap 17.8 21.0 Estimated GFR () 25.1 19.7 Est GFR (CKD-EPI)(Non-Afr French) 20.7 16.3 BUN/Creatinine Ratio 21.0 21.0 Bedside Glucose 111 114 White Blood Count 27.8 10^3/uL Red Blood Count 4.18 10^6/uL Hemoglobin 13.2 g/dL Hematocrit 39.8 % Mean Corpuscular Volume 95.2 fL Mean Corpuscular Hemoglobin 31.6 pg Mean Corpuscular Hemoglobin Concent 33.2 g/dL Red Cell Distribution Width 13.5 % Platelet Count 168 10^3/uL Mean Platelet Volume 10.2 fL Prothrombin Time 14.5 SEC Prothrombin Time INR (Non-Therap) 1.4 Total Bilirubin 1.7 mg/dL Aspartate Amino Transf (AST/SGOT) 4312 U/L Alanine Aminotransferase (ALT/SGPT) 6028 U/L Alkaline Phosphatase 156 U/L Total Protein 6.1 g/dL Albumin 1.5 g/dL Globulin 4.6 Albumin/Globulin Ratio 0.326 Test 09/13/20 08:01 09/13/20 08:10 09/13/20 11:59 Bedside Glucose 140 169 Blood Gas Sample Site RT RADIAL ARTERY Blood Gas pH 7.076 Blood Gas PCO2 68.9 mmHg Blood Gas PO2 52.7 mmHg Blood Gas HCO3 19.8 mmol/L Blood Gas Base Excess -11.7 mmol/L Vince Test POSITIVE Arterial Blood Oxygen Saturation 78.7 % Deoxyhemoglobin 21.1 % Carboxyhemoglobin 0.7 % Methemoglobin 0.3 % Total Hemoglobin 16.8 % Total Oxygen Concentration 18.4 % Blood Gas Temperature 37.0 Oxygen Delivery Method (LAB) 100 Blood Gas Vent Mode AC Blood Gas Vent Rate 22 FiO2 100 % Blood Gas Tidal Volume 500 ML Blood Gas PEEP 16 CMH2O Total Carbon Dioxide 21.9 mmol/L Current Medications Medications (Trade) Dose Ordered Sig/Estuardo Route PRN Reason Start Time Stop Time Status Last Admin Dose Admin Enoxaparin Sodium (Lovenox) 40 mg DAILY SQ 08/31/20 09:00 09/04/20 11:47 DC 09/04/20 09:00 Remdesivir 200 mg/ Sodium Chloride 140 ml @ 120.69 mls/ hr OT IV 08/31/20 09:30 08/31/20 10:40 DC 08/31/20 09:38 Lorazepam (Ativan) 1 mg Q3HR PRN IV ANXIETY 08/31/20 05:00 09/01/20 10:41 DC 09/01/20 06:00 Azithromycin 500 mg/Sodium Chloride 250 ml @ 175 mls/hr Q24HRS IV 08/31/20 05:00 09/04/20 08:00 DC 09/04/20 04:12 Ceftriaxone Sodium 1000 mg/ Sodium Chloride 100 ml @ 100 mls/hr Q24HRS IV 08/31/20 05:00 09/05/20 09:27 DC 09/05/20 04:49 Lorazepam (Ativan) 1 mg STAT STAT IV 08/31/20 05:16 08/31/20 08:31 DC 08/31/20 05:34 Sodium Chloride 100 ml @ ud STK-MED ONCE IV 08/31/20 05:18 08/31/20 05:21 DC Ceftriaxone Sodium (Rocephin) 1,000 mg STK-MED ONCE .ROUTE 08/31/20 05:19 08/31/20 05:21 DC Sodium Chloride 500 ml @ ud STK-MED ONCE IV 08/31/20 05:37 08/31/20 05:40 DC Morphine Sulfate (Morphine Sulfate) 0.5 mg STAT ONCE IV 08/31/20 06:15 08/31/20 08:44 DC 08/31/20 06:15 Albuterol/ Ipratropium (Duo 0.5-3(2.5) Mg/3 ml) 3 ml RTQ6H IH 08/31/20 08:00 09/30/20 07:59 09/13/20 09:02 Albuterol Sulfate (Ventolin) 2.5 mg RTQ4 PRN IH WHEEZING 08/31/20 08:00 09/30/20 07:59 09/05/20 09:00 Furosemide (Lasix) 40 mg STAT STAT IV 08/31/20 07:55 08/31/20 08:44 DC 08/31/20 08:08 Morphine Sulfate (Morphine Sulfate) 0.5 mg OT STAT IV 08/31/20 07:56 08/31/20 08:44 DC 08/31/20 08:25 Lorazepam (Ativan) 0.5 mg STAT STAT IV 08/31/20 07:56 08/31/20 08:43 DC 08/31/20 08:23 Sodium Chloride 250 ml @ ud STK-MED ONCE IV 08/31/20 08:03 08/31/20 08:05 DC Sodium Chloride 100 ml @ ud STK-MED ONCE IV 08/31/20 09:34 08/31/20 09:36 DC Remdesivir 100 mg/ Sodium Chloride 120 ml @ 111.111 mls/hr Q24HRS IV 09/01/20 09:00 09/05/20 09:23 DC 09/05/20 08:39 Aspirin (Aspirin) 81 mg DAILY PO 09/01/20 09:00 10/01/20 08:59 09/13/20 08:06 Famotidine (Pepcid) 20 mg BID PO 08/31/20 21:00 09/01/20 22:57 DC 09/01/20 21:00 Ascorbic Acid (Vitamin C) 500 mg BID PO 08/31/20 21:00 09/30/20 20:59 09/13/20 08:06 Zinc Sulfate (Zinc Sulfate) 220 mg DAILY PO 08/31/20 21:00 09/30/20 20:59 09/13/20 08:06 Guaifenesin (Robitussin Dm) 5 ml Q4HR PRN PO COUGH 09/01/20 01:30 09/01/20 10:41 DC Morphine Sulfate (Morphine Sulfate) 2 mg STK-MED ONCE .ROUTE 09/01/20 03:32 09/01/20 03:34 DC Morphine Sulfate (Morphine Sulfate) 0.5 mg STAT STAT IV 09/01/20 03:33 09/01/20 03:35 DC 09/01/20 03:33 Sodium Chloride 100 ml @ ud STK-MED ONCE IV 09/01/20 05:28 09/01/20 05:30 DC Sodium Chloride 250 ml @ ud STK-MED ONCE IV 09/01/20 05:29 09/01/20 05:30 DC Ceftriaxone Sodium (Rocephin) 1,000 mg STK-MED ONCE .ROUTE 09/01/20 05:29 09/01/20 05:31 DC Benzonatate (Tessalon Perle) 100 mg Q2 PRN PO COUGH 09/01/20 06:00 09/01/20 05:50 DC Dexmedetomidine HCl 200 mcg/ Sodium Chloride 50 ml @ 0 mls/hr IV 09/01/20 06:00 09/01/20 08:24 DC Sodium Chloride 250 ml @ ud STK-MED ONCE IV 09/01/20 05:37 09/01/20 05:39 DC Benzonatate (Tessalon Perle) 200 mg TID PRN PO COUGH 09/01/20 06:00 09/01/20 10:41 DC 09/01/20 06:00 Acetaminophen/ Hydrocodone Bitart (P[place]uma 5mg) 1 ea TID PRN PO PAIN 4 - 6 09/01/20 06:00 09/01/20 10:41 DC Dexmedetomidine HCl 400 mcg/ Sodium Chloride 100 ml @ 0 mls/hr IV 09/01/20 08:30 09/04/20 19:42 DC 09/04/20 08:49 Sodium Chloride 1,000 ml @ ud STK-MED ONCE .ROUTE 09/01/20 10:16 09/01/20 10:18 DC Sodium Chloride 1,000 ml @ ud STK-MED ONCE .ROUTE 09/01/20 10:18 09/01/20 10:20 DC Propofol 100 ml @ ud STK-MED ONCE IV 09/01/20 10:28 09/01/20 10:30 DC Vecuronium Wellpinit (Norcuron) 10 mg STK-MED ONCE .ROUTE 09/01/20 10:29 09/01/20 10:31 DC Propofol (Diprivan) Diprivan IV infusion tritra... TITRATE PRN IV sedation 09/01/20 10:30 10/01/20 10:29 09/12/20 19:30 Propofol (Diprivan) STAT STAT IV 09/01/20 10:29 09/01/20 10:38 DC 09/01/20 11:50 Vecuronium Wellpinit (Norcuron) 5 mg Q1HR IV 09/01/20 11:00 09/04/20 11:10 DC 09/04/20 06:28 Vecuronium Wellpinit (Norcuron) 2 mg Q30MIN PRN IV paralysis 09/01/20 11:00 09/08/20 11:19 DC 09/04/20 10:00 Fentanyl Citrate 1000 mcg/Sodium Chloride 100 ml @ 0 mls/hr IV 09/01/20 11:30 09/07/20 20:40 DC 09/07/20 15:43 Sterile Water (Water) 1,000 ml STK-MED ONCE .ROUTE 09/01/20 13:55 09/01/20 13:57 DC Propofol (Diprivan) 200 mg STK-MED ONCE IV 09/01/20 12:00 09/01/20 21:42 DC Rocuronium Wellpinit (Zemuron) 100 mg STK-MED ONCE IV 09/01/20 12:00 09/01/20 21:42 DC Succinylcholine Chloride (Quelicin) 100 mg STK-MED ONCE IV 09/01/20 12:00 09/01/20 21:42 DC Famotidine (Pepcid) 20 mg BID IV 09/02/20 09:00 10/02/20 08:59 09/13/20 08:06 Famotidine (Pepcid) 20 mg STK-MED ONCE IV 09/02/20 07:57 09/02/20 07:59 DC Albuterol/ Ipratropium (Duoneb 0.5 Mg-3 Mg/3 ml Soln) 3 ml STK-MED ONCE IH 09/02/20 08:37 09/02/20 08:39 DC Sterile Water (Water) 1,000 ml STK-MED ONCE .ROUTE 09/03/20 14:28 09/03/20 14:30 DC Sodium Chloride 500 ml @ ud STK-MED ONCE IV 09/04/20 09:35 09/04/20 09:37 DC Vecuronium Wellpinit (Norcuron) 15 mg Q1HR PRN IV vent dsynchrony or hypoxia 09/04/20 11:30 10/04/20 11:29 09/11/20 10:00 Enoxaparin Sodium (Lovenox) 40 mg BID SQ 09/04/20 21:00 09/08/20 10:44 DC 09/08/20 09:36 Sterile Water (Water) 1,000 ml STK-MED ONCE .ROUTE 09/04/20 17:03 09/04/20 17:05 DC Dexmedetomidine HCl 800 mcg/ Sodium Chloride 200 ml @ 0 mls/hr IV 09/04/20 20:00 09/07/20 20:39 DC 09/07/20 11:26 Vancomycin HCl 1.5 gm/Sodium Chloride 300 ml @ 175 mls/hr Q12H IV 09/05/20 11:00 09/07/20 18:15 DC 09/07/20 10:46 Cefepime HCl 2 gm/ Sodium Chloride 100 ml @ 100 mls/hr Q8H IV 09/05/20 09:30 09/07/20 11:14 DC 09/07/20 09:27 Vecuronium Wellpinit (Norcuron) 10 mg STK-MED ONCE .ROUTE 09/05/20 12:00 09/05/20 16:06 DC Sodium Chloride 500 ml @ ud STK-MED ONCE IV 09/05/20 21:36 09/05/20 21:38 DC Piperacillin Sod/ Tazobactam Sod 3.375 gm/Sodium Chloride 100 ml @ 100 mls/hr Q6H IV 09/07/20 11:30 09/07/20 12:27 DC Piperacillin Sod/ Tazobactam Sod 3.375 gm/Sodium Chloride 100 ml @ 100 mls/hr Q6H IV 09/07/20 13:00 09/12/20 09:28 DC 09/12/20 07:00 Vancomycin HCl 1.5 gm/Sodium Chloride 300 ml @ 175 mls/hr Q8H IV 09/07/20 20:00 09/08/20 14:57 DC 09/08/20 13:30 Sodium Chloride 500 ml @ ud STK-MED ONCE IV 09/07/20 20:09 09/07/20 20:10 DC Dexmedetomidine HCl 1600 mcg/ Sodium Chloride 400 ml @ 0 mls/hr IV 09/07/20 21:00 10/07/20 20:59 09/11/20 20:10 Fentanyl Citrate 2000 mcg/Sodium Chloride 200 ml @ 0 mls/hr IV 09/07/20 21:00 09/07/20 20:41 DC Fentanyl Citrate 2000 mcg/Sodium Chloride 200 ml @ 0 mls/hr IV 09/07/20 21:00 10/07/20 20:59 09/12/20 05:06 Enoxaparin Sodium (Lovenox) 90 mg BID SQ 09/08/20 21:00 10/08/20 20:59 09/13/20 08:06 Furosemide (Lasix) 20 mg STAT STAT IV 09/08/20 10:42 09/08/20 11:31 DC 09/08/20 11:44 Furosemide (Lasix) 20 mg STK-MED ONCE .ROUTE 09/08/20 10:52 09/08/20 10:54 DC Dextrose 1,000 ml @ 100 mls/hr Q10H ONCE IV 09/08/20 14:30 09/09/20 00:29 DC 09/08/20 15:10 Vancomycin HCl 1 gm/Sodium Chloride 300 ml @ 175 mls/hr Q8H IV 09/08/20 21:00 09/09/20 08:39 DC 09/09/20 04:50 Sterile Water (Water) 1,000 ml STK-MED ONCE .ROUTE 09/09/20 04:59 09/09/20 05:01 DC Vancomycin HCl 1 gm/Sodium Chloride 250 ml @ 145.843 mls/hr Q8H IV 09/09/20 08:39 09/09/20 08:40 DC Vancomycin HCl 1 gm/Sodium Chloride 250 ml @ 175 mls/hr Q8H IV 09/09/20 13:00 09/12/20 08:32 DC 09/11/20 21:45 Potassium Chloride/Sodium Chloride 1,000 ml @ 100 mls/hr Q10H IV 09/09/20 11:30 09/10/20 12:26 DC 09/09/20 21:30 Furosemide (Lasix) 20 mg STAT STAT IV 09/09/20 12:29 09/09/20 12:32 DC 09/09/20 12:29 Furosemide (Lasix) 40 mg STAT STAT IV 09/10/20 06:17 09/10/20 08:18 DC 09/10/20 06:17 Potassium Chloride/Dextrose 1,000 ml @ 100 mls/hr Q10H IV 09/10/20 12:30 09/11/20 11:08 DC 09/11/20 08:49 Albuterol/ Ipratropium (Duoneb 0.5 Mg-3 Mg/3 ml Soln) 3 ml STK-MED ONCE IH 09/10/20 14:59 09/10/20 15:01 DC Sodium Chloride 500 ml @ ud STK-MED ONCE IV 09/10/20 20:38 09/10/20 20:40 DC Acetaminophen (Ofirmev) 1,000 mg Q8H PRN IV FEVER 09/11/20 08:00 10/11/20 07:59 09/11/20 22:15 Acetaminophen (Ofirmev) 1,000 mg OT IV 09/11/20 08:30 09/11/20 08:31 DC 09/11/20 08:21 Furosemide (Lasix) 20 mg STAT STAT IV 09/11/20 08:31 09/11/20 08:38 DC 09/11/20 08:50 Dextrose/Sodium Chloride 1,000 ml @ 100 mls/hr Q10H IV 09/11/20 11:30 09/11/20 11:09 DC Dextrose/Sodium Chloride 1,000 ml @ 50 mls/hr Q20H IV 09/11/20 11:30 09/13/20 11:30 DC 09/13/20 03:04 Sodium Chloride 500 ml @ 500 mls/hr Q1H ONCE IV 09/11/20 13:00 09/11/20 13:59 DC 09/11/20 13:00 Norepinephrine Bitartrate 8 mg/ Sodium Chloride 250 ml @ 0 mls/hr TITRATE IV 09/11/20 13:30 10/11/20 13:29 09/11/20 14:31 Furosemide (Lasix) 20 mg STAT STAT IV 09/12/20 04:02 09/12/20 04:17 DC 09/12/20 04:02 Furosemide (Lasix) 20 mg STK-MED ONCE .ROUTE 09/12/20 04:04 09/12/20 04:07 DC Calcium Gluconate (Calcium Gluconate) 1,000 mg STAT STAT IV 09/12/20 07:39 09/12/20 08:12 DC Dextrose (Dextrose 50%-Water Syringe) 50 ml STAT STAT IV 09/12/20 07:39 09/12/20 08:12 DC Insulin Human Regular (Humulin R) 10 unit OT ONCE IV 09/12/20 08:00 09/12/20 08:12 DC Piperacillin Sod/ Tazobactam Sod 2.25 gm/Sodium Chloride 100 ml @ 100 mls/hr Q6H IV 09/12/20 13:00 09/12/20 17:08 DC 09/12/20 15:00 Furosemide (Lasix) 40 mg STAT STAT IV 09/12/20 11:00 09/12/20 11:06 DC 09/12/20 11:00 Piperacillin Sod/ Tazobactam Sod 2.25 gm/Sodium Chloride 100 ml @ 100 mls/hr Q6H IV 09/12/20 16:00 10/12/20 15:59 09/13/20 10:00 Furosemide (Lasix) 40 mg STAT STAT IV 09/13/20 07:34 09/13/20 08:02 DC 09/13/20 07:34 Calcium Gluconate (Calcium Gluconate) 1,000 mg STK-MED ONCE IV 09/13/20 07:49 09/13/20 07:51 DC Dextrose (Dextrose 50%-Water Syringe) 50 ml STK-MED ONCE IV 09/13/20 07:49 09/13/20 07:51 DC Calcium Gluconate (Calcium Gluconate) 1,000 mg STAT STAT IV 09/13/20 07:49 09/13/20 08:02 DC 09/13/20 07:49 Insulin Human Regular (Humulin R) 10 unit OT ONCE SQ 09/13/20 08:00 09/13/20 07:56 DC Dextrose (Dextrose 50%-Water Syringe) 25 ml STAT STAT IV 09/13/20 07:49 09/13/20 07:56 DC Dextrose (Dextrose 50%-Water Syringe) 50 ml STAT STAT IV 09/13/20 07:53 09/13/20 08:02 DC 09/13/20 07:53 Insulin Human Regular (Humulin R) 10 unit OT ONCE IV 09/13/20 08:00 09/13/20 08:02 DC 09/13/20 08:00 Furosemide (Lasix) 120 mg STAT STAT IV 09/13/20 11:28 09/13/20 11:33 DC Albumin Human (Buminate 25%) 100 ml STAT STAT IV 09/13/20 11:28 09/13/20 11:33 DC PROCEDURE:CHEST 1 VIEW COMPARISON:[facility], CR, XRAY CHEST SINGLE VW, 09/04/2020, 07:26 AM. [facility], CT, CT CHEST W/O, 09/01/2020, 03:57 PM. [facility], CR, XRAY CHEST SINGLE VW, 09/08/2020, 10:15 AM. [facility], CR, XRAY CHEST SINGLE VW, 09/10/2020, 09:26 AM. INDICATIONS:advanced ett FINDINGS: LUNGS/PLEURA:ETT tip 5 cm above the chuy. Diffuse bilateral heterogeneous infiltrates with some ground-glass, but predominantly consolidative, components. CARDIAC:Cardiac margins are obscured by bilateral lung density. MEDIASTINUM:Normal. No visible mass or adenopathy. BONES:Normal. No fracture or visible bony lesion. OTHER:A catheter tip is identified over the left upper arm and axillary region. A gastric tube extends into the stomach below the field of view of this exam. CONCLUSION: 1. ETT in satisfactory position. 2. Re-demonstrated findings of severe bilateral pneumonia. Compared to the earlier exam of same date, there is increased infiltrate density and decreased aeration in the left upper lung on the present exam. 3. A catheter tip is once again noted in the left upper arm and left axilla. This is of uncertain nature. It is more peripherally located than would be expected for a PICC line. Recommend correlation with recent catheter placement and therapy. Assessment & Plan: Assessment Hospital course: Pt is a 54 y/o M with PMHx of HTN, HLD, obesity, and anxiety. He was admitted the morning of 08/31 as a transfer from OSH for acute hypoxemic respiratory failure and COVID-19. He was started on full spectrum treatment for COVID-19 with IV Decadron, Azithromycin, Remdesivir, CCP, Zinc, and Vitamin C. On arrival to this facility, he was in mild to moderate respiratory distress and required continuous CPAP to maintain Oxygenation. He remained relatively stable throughout 08/31, but started becoming more fatigued the evening of 08/31, and was moved to the ICU for closer monitoring. In the ICU, he was continued on CPAP in an effort to avoid intubation. However, he continued to have difficulty with NIPPV and was frequently dyssynchronous, causing further desaturations. He was also noted to have Sub q emphysema in his chest and neck, which was concerning for barotrauma due to continued dyssynchrony. The morning of 09/01, he was noted to be in worsened respiratory distress and there was concern for impending respiratory collapse due to fatigue. The patient and I discussed intubation and he agreed to be electively intubated before he decompensated completely. The on- call [employer] was called and the patient was subsequently intubated without complication. He was started on Propofol and fentanyl drips and paralyzed with IV vecuronium pushes. He has tolerated mechanical ventilation rather well and his O2 sats and PaO2 have improved markedly. Prior to intubation his ABG showed normal pH and a PaO2 in the 50's. His PaO2 improved to 70's within the hour, and was 150's on his most recent ABG the evening of 09/01. Of note, I did discuss the possibility of prolonged intubation, need for tracheostomy, and whether this is something that he would want done. He agreed that tracheostomy and long-term vent weaning is something that he would be ok with if it came down to it. Since intubation, he has improved markedly. He was continued on treatment for COVID with Remdesivir, steroids, and azithromycin and has completed his courses of each of these. His inflammtory markers have been downtrending with the exception of D-dimer which is uptrending slowly. His WBC was previously trending down, but increased sharply from 15 to 19 today. He has also been fevering so his Abx were broadened out to Vanc/Cefepime this AM and repeat Blood and sputum cultures were obtained. 09/06/2020: he remained stable. still have low grade fever. blood cultures are negative. 09/07: o2 level improved with prone position. still require high vent settings. 09/08: stable. he will be placed in prone position again today. 09/09: stable. he is running fever. CXR showed worsening air space disease. 09/10: his condition deteriorated. O2 sat dropped with high vent setting. he is made DNR. 09/11: poor respiratory status. he benefited from prone position but still sat <90%. he developed fever. 09/12: criticaly unstable with O2 sat of 70-80%. he developed shock and was treated with levophed and IVF. levophed weaned off this morning. No urinary output. he was given IVF and lasix. 09/13: still unstable with worsening kidney function and anuria. O2sat is at 802% consistently. HD stable.We are trying to transfer to another facility for hemodialysis. Assessments: Neuro: sedated. Expected possible brain injury from hypoxia but difficult to assess. sedation is managed by the biomedical photographer: we will wean sedation to assess brain function. CV:HD stable. # Hx HTN: but off lisinopril due to soft BP. Pulmo: #Acute respiratory failure/ARDS on mechanical ventilation: managed by ICU telemedicine. #COVID-19 pneumonia: He is still on high setting, O2 sat dropping below 80s%. CXR showed worsening air space disease.possibly superimposed with HAP. Procalcitonin is normal. covid markers still high. _the lead manufacturing engineer recommened to stop placing the pt in prone position. - C/w IV dexamethasone 6 mg daily. - Pt has completed course of Remdesivir. - s/p 1u CCP - he completed 7 days course. - c/w Zosyn day 6(was on Cefepime) - lasix IV 120 mg. - trend COVID markers q48h - CXR q48h and PRN Pneumomediastinum without pneumothorax: stable. GI: c/w TF as tolerated.. # Acute liver injury: Markedly Elevated LFT: most likely due to shock/ischemic injury. Unlikely G.B disease.difficult to assess for liver failure as he is sedated. will monitor INR will monitor LFT. # hypoalbuminemia: he is third spacing fluids. : no issues endo: # episode of hypoglycemia: due to lack of feeding and liver acute injury. -if TF is resumed we will d/c D5 IV. heme: #High D.Dimer: he is on Lovenox 90 mg BID due to high D.Dimer. he is too unstable to get CTA chest. ID: #Sepsis: improved fever and leukocytosis: Influenza A&B negative, blood culture negative. urine Cx negative. FEN: #LUISA: due to ATN 2/2 shock. zero UOP the last 24 hours. We advised to transfer the pt to another facility for urgent hemodialysis. - Lasix 120 mg IV stat - albumin IV bolus. - will monitor BMP closely. #Dehydration:resolved. . #Hyperkalemia: due to LUISA. hyperkalemia protocol. VTE ppx: Lovenox. GI ppx: Pepcid Diet: TF when supine. CODE: DNR prognosis is poor. His Amanda Jean ([phone]) was contacted she got updates. Time Spent: > 40 minutes between evaluation, coordination of care, and documentation ARMANDO OLIVARES MD Sep 13, 2020 13:22
--- NOTE | 2020-09-13 13:56 | NUR ---
TRANSFER UPDATE CM TELEPHONED [facility]-NO BEDS, [facility]- NO BEDS, [facility]-ON WAIT LIST FOR BED, [facility] ON WAITLIST FOR BE. GERARDO ALSO SPOKE TO GENE SCHUSTER RN AND HAS PATIENT ON STATE WAIT LIST. HE IS #12 ON THE STATE WAIT LIST. [facility] PROVIDED ICU PHONE # FOR ACCEPTANCE OF BED AND ATTENDING PHYSICIANS PHONE NUMBER. PETE ANTOINE NOTIFIED OF PLAN AND DR ARMANDO OLIVARES NOTIFIED.
--- NOTE | 2020-09-13 14:43 | NUR ---
RT spoke with Dr. Garcia via phone, received verbal order authorizing new vent settings of PC 25 rate 25 100% +12... advised [employer] that he would put order in for new settings..
--- NOTE | 2020-09-13 18:00 | NUR ---
Yonny man Spoke with Cristina with [facility]. Patient not a candidate due to Covid positive. Case #[id number].
--- NOTE | 2020-09-13 18:46 | PCM.DCS ---
Discharge Summary Date of Discharge: Sep 13, 2020 Time of Request to Discharge: 17:45 Reason for Visit: COVID pneumonia. Hospital Course Pt is a 54 y/o M with PMHx of HTN, HLD, obesity, and anxiety. He was admitted the morning of 08/31 as a transfer from OSH for acute hypoxemic respiratory failure and COVID-19. He was started on full spectrum treatment for COVID-19 with IV Decadron, Azithromycin, Remdesivir, CCP, Zinc, and Vitamin C. On arrival to this facility, he was in mild to moderate respiratory distress and required continuous CPAP to maintain Oxygenation. He remained relatively stable throughout 08/31, but started becoming more fatigued the evening of 08/31, and was moved to the ICU for closer monitoring. In the ICU, he was continued on CPAP in an effort to avoid intubation. However, he continued to have difficulty with NIPPV and was frequently dyssynchronous, causing further desaturations. He was also noted to have Sub q emphysema in his chest and neck, which was concerning for barotrauma due to continued dyssynchrony. The morning of 09/01, he was noted to be in worsened respiratory distress and there was concern for impending respiratory collapse due to fatigue. The patient and I discussed intubation and he agreed to be electively intubated before he decompensated completely. The on- call OL[facility] PICKER was called and the patient was subsequently intubated without complication. He was started on Propofol and fentanyl drips and paralyzed with IV vecuronium pushes. He has tolerated mechanical ventilation rather well and his O2 sats and PaO2 have improved markedly. Of note, we did discuss the possibility of prolonged intubation, need for tracheostomy, and whether this is something that he would want done. He agreed that tracheostomy and long-term vent weaning is something that he would be ok with if it came down to it. intially, he has improved markedly. He was continued on treatment for COVID with Remdesivir, steroids, and azithromycin and has completed his courses of each of these. His inflammtory markers have been downtrending with the exception of D- dimer which is uptrending slowly. He has also been fevering so his Abx were broadened out to Vanc/Cefepime this AM and repeat Blood and sputum cultures were obtained. 09/06/2020: he remained stable. still have low grade fever. blood cultures are n egative. 09/07: his O2 sat dropped so we placed him in prone position. o2 level improved with prone position. still require high vent settings. 09/08: stable. he will be placed in prone position again today. 09/09: stable. he is running fever. CXR showed worsening air space disease. 09/10: his condition deteriorated. O2 sat dropped with high vent setting. at this point he was not doing well, so we discussed code status with [facility] family and he was made DNR. 09/11: poor respiratory status. he benefited from prone position but still sat <90%. he developed fever. 09/12: he deteriorated dramatically and became criticaly unstable with O2 sat of 70-80%. he developed shock and was treated with levophed and IVF. O2 sat was 50s% for hours. he was on levophed the whole night but Bp imroved in am. Unfonrtunately hypoxia and shock lead to anuria and ischemic liver injury.No uri nary output. he was given IVF and lasix but his kidney function declined quickly. 09/13: still unstable with worsening kidney function and anuria. O2sat is at 80% consistently. HD stable.We tried to transfer to another facility for hemodialysis but we did not find any available ICU bed. toward noon his O2 sat dropped to 50% no matter waht changes in his position or vent setting. The family came to his room. The patient at 17:45. I prounced the pt after exam with no pulse, no corneal reflex, no gag reflex. The ventillator was stopped. Additional Comments The family was at the bedside when he . Scheduled Atorvastatin 10MG (Lipitor 10MG), 1 TAB PO HS, (Reported) Bisoprolol Fumarate/Hctz (Bisoprolol-Hctz 5-6.25 Mg Tab), 1 TAB PO DAILY, (Reported) Temazepam (Restoril), 1 CAP PO HS, (Reported) Sepsis Evaluation @ Discharge 09/13/20 09:00 Plan Problems: (1) Acute liver failure with hepatic coma ICD Code: K72.01 - Acute and subacute hepatic failure with coma SNOMED: 719506099 (2) Acute kidney failure ICD Code: N17.9 - Acute kidney failure, unspecified SNOMED: 71477159 (3) Multi-organ system dysfunction SNOMED: 51832566 (4) Acute respiratory failure due to COVID-19 ICD Code: U07.1 - COVID-19; J96.00 - Acute respiratory failure, unspecified whether with hypoxia or hypercapnia SNOMED: 40209147, 487859986 (5) ARDS (adult respiratory distress syndrome) ICD Code: J80 - Acute respiratory distress syndrome SNOMED: 03376775, 22737596 (6) Pneumonia due to COVID-19 virus Status: Acute ICD Code: U07.1 - COVID-19; J12.89 - Other viral pneumonia SNOMED: 089664170686718418 (7) Diabetes mellitus ICD Code: E11.9 - Type 2 diabetes mellitus without complications SNOMED: 45294337 (8) SIRS (systemic inflammatory response syndrome) ICD Code: R65.10 - Systemic inflammatory response syndrome (SIRS) of non- infectious origin without acute organ dysfunction SNOMED: 623487664 Discharge Date: Sep 13, 2020 Discharge Disposition: Other ARMANDO OLIVARES MD Sep 13, 2020 18:46
[2020-09-13 19:24] LABS: BAND NEUTROPHILS 1 % (2-6); LYMPHOCYTE 1 % (25-36); MONOCYTE 1 % (3-9); SEGMENTED NEUTROPHILS 97 % (31-76)
[2020-09-13 19:25] LABS: ANISOCYTOSIS 1+ (NEGATIVE); DIFFERENTIAL COMMENT NORMAL
--- NOTE | 2020-09-13 21:16 | NUR ---
OFF UNIT: MAINTENANCE TO COLLECT PT BODY AND TRANSFERRED OFF UNIT.
== END 2020-09-13 17:45 | disposition expired | DRG 870 ==
LOC: ER 00:35 → MS 02:28 → ICU 15:59
PROVIDERS: ADMIT Internal Medicine; ATTEND Internal Medicine
PROC: 5A09357 Assistance with Respiratory Ventilation, Less than 24 Consecutive Hours, Continuous Positive Airway Pressure (ICD-10-PCS; 2020-08-31)
PROC: XW033E5 Introduction of Remdesivir Anti-infective into Peripheral Vein, Percutaneous Approach, New Technology Group 5 (ICD-10-PCS; 2020-08-31)
PROC: 5A1955Z Respiratory Ventilation, Greater than 96 Consecutive Hours (ICD-10-PCS; principal; 2020-09-01)
PROC: 0BH17EZ Insertion of Endotracheal Airway into Trachea, Via Natural or Artificial Opening (ICD-10-PCS; 2020-09-01)
PROC: 5A09457 Assistance with Respiratory Ventilation, 24-96 Consecutive Hours, Continuous Positive Airway Pressure (ICD-10-PCS; 2020-09-01)
PROC: 05H833Z Insertion of Infusion Device into Left Axillary Vein, Percutaneous Approach (ICD-10-PCS; 2020-09-03)
PROC: XW13325 Transfusion of Convalescent Plasma (Nonautologous) into Peripheral Vein, Percutaneous Approach, New Technology Group 5 (ICD-10-PCS; 2020-09-04)
DX: A41.9 Sepsis, unspecified organism (principal); U07.1 COVID-19; J12.89 Other viral pneumonia; N17.0 Acute kidney failure with tubular necrosis; J80 Acute respiratory distress syndrome; E46 Unspecified protein-calorie malnutrition; R57.9 Shock, unspecified; T79.7XXA Traumatic subcutaneous emphysema, initial encounter; Z99.11 Dependence on respirator [ventilator] status; I10 Essential (primary) hypertension; E78.5 Hyperlipidemia, unspecified; Z66 Do not resuscitate; E87.6 Hypokalemia; E78.00 Pure hypercholesterolemia, unspecified; F41.9 Anxiety disorder, unspecified; Z51.5 Encounter for palliative care; E87.5 Hyperkalemia; E11.649 Type 2 diabetes mellitus with hypoglycemia without coma; K76.1 Chronic passive congestion of liver; E66.9 Obesity, unspecified; K72.90 Hepatic failure, unspecified without coma; R74.01 Elevation of levels of liver transaminase levels; E86.0 Dehydration; Z68.32 Body mass index [BMI] 32.0-32.9, adult; Z79.01 Long term (current) use of anticoagulants; Z78.1 Physical restraint status; Z88.2 Allergy status to sulfonamides
CPT/HCPCS: 36415; 36569; 36600; 71045; 71250; 74018; 76705; 80048; 80053; 80202; 81000; 82140; 82550; 82728; 82803; 82948; 83605; 83615; 83735; 84100; 84145; 84478; 85025; 85027; 85370; 85379; 85610; 85730; 86140; 86900; 87040; 87070; 87077; 87086; 87186; 87205; 87804; 93306; 94002; 94003; 94640; 94660; 99285; A4624; G0378; J0131; J0330; J0456; J0610; J0692; J0696; J1100; J1650; J1940; J2060; J2543; J3010; J3370; J3490; J7030; J7040; J7050; J7070; J7613; J7620; P9017; P9047; J7060; S5012